=== PATIENT | male | born 1960 | race Caucasian/White ===

== ENCOUNTER 2016-09-29 09:02 | Observation (INO) | payer OTHER ==
--- NOTE | 2016-09-29 09:24 | ED ---
Shortness of Breath - HPI Summary HPI Summary: 55yo male presents with shortness of breath that started yesterday. Patient has productive cough of yellow/green sputum which started on Thursday. Patient has been on an antibiotic since Thursday for an infection at the site of his previous iv. He believes he's been on cephalexin. He states that those symptoms have improved. Patient states that he feels cold, but no fever. He does have some myalgias. He has been using his inhalers at home, but hasn't been getting any relief. He used his nebulizer about an hour ago without relief. He had is last prednisone last Thursday. No chest pain. No leg swelling. Patient has some dizziness only when he coughs. He was admitted for COPD exacerbation on September 14-2015. Patient with upper GI scheduled due to GI bleed noticed in his colostomy bag, Dr. Guerline STANTON. PCP is Dr. Heredia. - History of Current Complaint Chief Complaint: EDShortnessOfBreath - Allergy/Home Medications Allergies/Adverse Reactions: Allergies Allergy/AdvReac Type Severity Reaction Status Date / Time No Known Allergies Allergy Verified 09/29/16 10:00 Home Medications: Home Medications Epclusa 1 tab PO DAILY 09/29/16 [History Confirmed 09/29/16] PMH/Surg Hx/FS Hx/Imm Hx Endocrine/Hematology History: Denies: Hx Diabetes, Hx Systemic Lupus Erythematosus, Hx Thyroid Disease Cardiovascular History: Reports: Hx Atrial Fibrillation - no anticoagulants used currently Denies: Hx Congestive Heart Failure, Hx Hypertension Comment Only: Other Cardiovascular Problems/Disorders - A FIB Respiratory History: Reports: Hx Asthma, Hx Chronic Obstructive Pulmonary Disease (COPD), Hx Pneumonia GI History: Reports: Hx Gastrointestinal Bleed, Hx Obstructive Bowel, Hx Ulcer - ulcerative colitis, Other GI Disorders - colostomy History: Denies: Hx Renal Disease Musculoskeletal History: Denies: Hx Arthritis, Hx Rheumatoid Arthritis, Hx Osteoporosis Sensory History: Reports: Hx Contacts or Glasses Opthamlomology History: Reports: Hx Contacts or Glasses - Cancer History Hx Chemotherapy: No - Surgical History Surgery Procedure, Year, and Place: COLECTOMY FOR ULCERATIVE COLITIS AT [facility] - has ostomy now 12/2012; bilat knees for cartilage Hx Anesthesia Reactions: No Infectious Disease History: Yes Infectious Disease History: Reports: Hx Hepatitis - hep c Denies: Hx Clostridium Difficile, Hx Human Immunodeficiency Virus (HIV), Hx of Known/Suspected MRSA, Hx Shingles, Hx Tuberculosis, Hx Known/Suspected VRE, Hx Known/Suspected VRSA, History Other Infectious Disease, Traveled Outside the [place] in Last 30 Days - Family History Known Family History: Positive: Unknown - adopted - Social History Lives: Alone Alcohol Use: Occasionally Alcohol Amount: 2 vodka drinks Substance Use Type: Reports: None Smoking Status (MU): Former Smoker - 2 months ago, smoked for 40 years Type: Cigarettes Amount Used/How Often: 1/2 ppd Have You Smoked in the Last Year: Yes Review of Systems Positive: Chills Positive: Shortness Of Breath, Cough All Other Systems Reviewed And Are Negative: Yes Physical Exam - Summary Physical Exam Summary: GENERAL: Well appearing, No acute distress, well nourished. HEENT: Head atraumatic/normocephalic, EOMI/ANTONIO, conjunctiva clear, TMs appear without erythema/bulging, Nose appears without congestion or drainage, Throat uvula midline without exudates, erythema, or tonsillar edema. NECK: Supple with normal range of motion during conversation. CARDIAC: Tachycardia with decreased heart sounds due to barrel chest without murmur, rub or gallop LUNGS: Diffuse expiratory wheezing bilaterally, No rales or rhonchi. Increased respiratory effort with supraclavicular retractions. Breath sounds are symmetrical and equal. ABDOMEN: Abdomen is soft and non-tender. colostomy bag present MUSCULOSKELETAL: Moves all extremities well. There is no peripheral edema. RUE without signs of infection. SKIN: Warm and dry, skin color reflects adequate perfusion. NEUROLOGICAL: Patient is alert and appropriate. Cranial nerves are grossly intact. PSYCHIATRIC: Appropriate affect. Vital Signs On Initial Exam: Initial Vitals Temp Pulse Resp BP Pulse Ox 97.8 F 107 19 129/87 97 09/29/16 09:05 09/29/16 09:05 09/29/16 09:05 09/29/16 09:05 09/29/16 09:05 Diagnostics - Vital Signs Vital Signs Temp Pulse Resp BP Pulse Ox 09/29/16 09:05 97.8 F 107 19 129/87 97 - Laboratory Result Diagrams: 09/29/16 09:24 09/29/16 09:24 Lab Statement: Any lab studies that have been ordered have been reviewed, and results considered in the medical decision making process. - Radiology chest Radiology Interpretation Completed By: Radiologist - EKG 1 Cardiac Rate: Tachycardia EKG Rhythm: Sinus Rhythm ST Segment: Normal Ectopy: None EKG Interpretation: sinus tachycardia, seen by Dr. Gordon 2 Cardiac Rate: Tachycardia EKG Rhythm: Sinus Rhythm ST Segment: Normal Ectopy: None EKG Comparison: No Significant Change - from earlier ekg Re-Evaluation - Re-Evaluation First Eval Change: Unchanged - Patient with continued sob, supraclavicular retractions, and tachycardia. Patient 96% on [address]ers [address]iscuss[address]. Gordon who advised hospitalist consult. Second Eval Change: Unchanged - Patient states that his breathing is improved, but he feels a little 'light headed'. Patient is tachycardic at 115. Patient denies chest pain. Will repeat EKG. Course/Dx - Course Assessment/Plan: 55yo male presents with SOB, productive cough and recent history of admission for COPD exacerbation. He states that he finished his pred taper last Thursday, and was started on abx for right iv site secondary infection. Patient increased SOB that started yesterday and is not improved with inhalers. Patient with elevated wbc, lactic. Patient had 2 nebs here with slight relieve but continues to have increased work of breathing, tachycardia, and diffuse wheezing. Discussed with Dr. Gordon who recommended speaking with hospitalist for possible admission. Discussed with Dr. Mckeon who will have someone from her team see the patient for admission. Patient is comfortable with plan of care. - Diagnoses Provider Diagnoses: COPD exacerbation, Leukocytosis, Tachycardia - Physician Notifications Discussed Care of Patient With: Dr. Gordon. Dr. Mckeon Discharge - Discharge Plan Condition: Improved Disposition: ADMITTED TO [facility] Referrals: Matthew Pandya MD [Medical Doctor] -
[2016-09-29] MEDS ORDERED: Albuterol/Ipratropium NEB.SOL* Albuterol 2.5 MG/Ipratropium 0.5 MG 3 ML INH ONE ×2 (09:27→10:25)
[2016-09-29] MEDS ORDERED: methylPREDNISolone 125 MG* 2 ML VIAL IV ONE (09:31)
[2016-09-29] MEDS ORDERED: Levofloxacin 750 MG IVPREMIX(* 750 MG/150 ML BAG IVPB ONE (09:36)
[2016-09-29 09:37] LABS: Hematocrit 51 % (42-52); Hemoglobin 16.9 g/dl (14.0-18.0); Mean Corpuscular HGB Conc 33 g/dl (31-36); Mean Corpuscular Hemoglobin 31 pg (27-31); Mean Corpuscular Volume 94 fL (80-94); Mean Platelet Volume 8 um3 (7.4-10.4); Red Blood Count 5.41 10^6/ul (4.0-5.4); Red Cell Distribution Width 15 % (10.5-15); White Blood Count 16.8 10^3/ul (3.5-10.8)
[2016-09-29 09:41] LABS: Comments Flag Yes
[2016-09-29 09:42] LABS: Add Diff/Slide Review? Slide Review Added
[2016-09-29 09:58] LABS: Albumin 4.3 g/dL (3.2-5.2); Calcium 9.2 mg/dL (8.6-10.3); EGFR African American 118.7 (>60); EGFR Non-African American 92.3 (>60); Potassium 4.2 mmol/L (3.5-5.0); Total Bilirubin 1.1 mg/dL (0.2-1.0); Total Protein 7.3 g/dL (6.4-8.9)
[2016-09-29 10:00] LABS: Troponin I 0.01 ng/mL (<0.04)
--- NOTE | 2016-09-29 10:31 | RAD ---
INDICATION: Shortness of breath. COMPARISON: Comparison is made with prior studies from July 01, 2016 and September 14, 2016. TECHNIQUE: Dual-energy PA and lateral views of the chest were obtained. FINDINGS: The heart is within normal limits in size. Mediastinal and hilar contours appear within normal limits. The lungs are markedly hyperinflated and clear. No pleural effusion is seen. IMPRESSION: FINDINGS CONSISTENT WITH COPD, NO EVIDENCE FOR ACUTE FINDING.
[2016-09-29] MEDS ORDERED: NS 0.9% 1000 ML* 1,000 ML IV ONE (13:47)
--- NOTE | 2016-09-29 18:30 | HP ---
TWO ADDENDUMS INCLUDED ON THIS REPORT HOSPITAL MEDICINE HISTORY AND PHYSICAL: DATE OF ADMISSION: 09/29/16 PRIMARY CARE PHYSICIAN: Dr. Heredia. ATTENDING PHYSICIAN: Dr. Preethi Mckeon *(dictation provided by Jodie German NP) . CHIEF COMPLAINT: Shortness of breath and cough. HISTORY OF PRESENT ILLNESS: Mr. Yne is a 55-year-old male with a past medical history of COPD with admission to our hospital from 09/14/16 through for COPD exacerbation, who returns today to the hospital with concern for worsening shortness of breath and cough. Mr. Yen states that he was feeling better at the time of discharge on 09/17/16. He continued to feel better and completed his antibiotics on 09/23/16, and completed his steroid treatments on 09/24/16. He stated that he suddenly began feeling more short of breath yesterday on 09/28/16. He also reports a worsening cough with green sputum. In addition to this, he had followed up with his primary care physician late last week regarding redness to his arm. At that time, he was diagnosed with phlebitis likely secondary to phlebotomy or intravenous therapy while in the hospital and was started on clindamycin. He states that the redness has resolved, although he only completed a couple of days of antibiotics. In the emergency room, Mr. eYn had an elevated white blood cell count to 16.8. His white blood cell count had been 13.1 at the time of discharge in the last hospitalization. His lactic acid is mildly elevated at 2.3. Otherwise, his labs are unremarkable. His flu swab was negative. His chest x-ray shows no evidence of pneumonia. He is currently wheezing and with an O2 saturation greater than 90% on 2 L cannula. Based on Mr. Yen's presentation with COPD exacerbation, Hospital Medicine was called regarding admission. PAST MEDICAL HISTORY: 1. COPD with 2 hospitalizations in 2016 for exacerbation. 2. Phlebitis, appears to be resolved. 3. Ulcerative colitis, status post colectomy with colostomy, December 2012. 4. One episode of AFib, October 2015. 5. Hep C, currently on treatment. MEDICATIONS: As an outpatient are: 1. Metoprolol tartrate 50 mg p.o. b.i.d. 2. Epclusa 1 tab p.o. daily. 3. Ipratropium 1 puff inhaled q.6 hours p.r.n. 4. Albuterol 1 to 2 puffs inhaled q.4 hours p.r.n. ADDENDUM TO MEDICATION LIST: 1. Clindamycin 300 mg p.o. q.6 hours. ALLERGIES: No known drug allergies. FAMILY HISTORY: Reviewed and noncontributory. SOCIAL HISTORY: The patient states he quit smoking 8 months ago. He drinks 2 to 3 alcoholic beverages per week. He states that his father is the healthcare proxy. REVIEW OF SYSTEMS: A 14-point review of systems was completed with Mr. Yen and all those not mentioned above were negative. PHYSICAL EXAMINATION GENERAL: Mr. Yen is sitting up in the bed. He appears somewhat short of breath but is in no acute distress and able to communicate in complete sentences. VITAL SIGNS: Blood pressure 118/79, heart rate 107, temperature 98.3, respiratory rate 25, O2 saturation 97% on 2 L nasal cannula. LUNGS: Diminished but with expiratory wheezing bilaterally with no accessory muscle use. He has a harsh cough. HEART: S1 and S2. No murmur, rub, or gallop, and regular. ABDOMEN: Soft, nontender. Bowel sounds positive x4. Colostomy in place. EXTREMITIES: No cyanosis or edema. NEURO: He is alert and oriented x3. He moves all extremities equally. There is no facial asymmetry or focal weakness. Extraocular movements are intact. SKIN: Intact. DIAGNOSTIC STUDIES/LAB DATA: WBC 16.8, hemoglobin 16.9, hematocrit 51, platelet count 202. INR 0.88. Sodium 132, potassium 4.2, chloride 96, serum bicarbonate 29, BUN 6, creatinine 0.86, glucose 111, lactic acid 2.3. Troponin 0.01. Flu swab is negative. Chest x-ray shows no acute process. EKG shows sinus tachycardia with a heart rate of approximately 100. ASSESSMENT AND PLAN: Mr. Yen is a 55-year-old male with past medical history of chronic obstructive pulmonary disease with recent hospitalization, who returns today to the ED with shortness of breath and worsening cough with suspected chronic obstructive pulmonary disease exacerbation. My plan is for inpatient admission as I expect his length of stay would be greater than 2 days for the followin. Chronic obstructive pulmonary disease exacerbation. There is no evidence of pneumonia on the chest x-ray. I plan to treat with Solu-Medrol 60 mg intravenously q.12 hours. He will have Levaquin 750 mg IV q. day. He will have Duo nebulizers q.4 hours as needed. He will have oxygen per respiratory therapy protocol. His lactic acid is slightly elevated, I will repeat that. I am not sure quite what is driving this repeat flare. The patient states he has been taking his medications regularly. He has stopped smoking. 2. Hypertension. Continue metoprolol. 3. Hep C. Continue Epclusa. 4. DVT prophylaxis with SCDs. 5. Disposition to medical floor. 6. Code status is full code. TIME SPENT: Approximately 60 minutes was spent on the admission of this patient , more than half of the time was spent with him at the bedside reviewing the events leading up to this hospitalization, performing the physical examination, and reviewing my plan of care. JODIE GERMAN NP ADDENDUM: Mr. Yen is a 55-year-old male with history of COPD, who presents yet with another COPD exacerbation. The patient is going to be admitted to the hospital with a diagnosis of COPD exacerbation. For details, please see history and physical dictated by Jodie German NP, on 09/29/16, with which I agree. PREETHI MCKEON MD CC: Dr. Heredia * [id number]/CPS #: [id number]/CPS #: [id number]/CPS #: [id number] ELIUD
[2016-09-29] MEDS: Albuterol/Ipratropium NEB.SOL* Albuterol 2.5 MG/Ipratropium 0.5 MG 3 ML INH PRN (20:39)
--- NOTE | 2016-09-29 20:42 | HP ---
HISTORY AND PHYSICAL: ADDENDUM: MEDICATION LIST: Clindamycin 300 mg p.o. q[place] [id number]/[facility] #: [id number] MTDD
[2016-09-29] MEDS: methylPREDNISolone 125 MG* 2 ML VIAL IV SCH (21:14)
[2016-09-29] MEDS: Metoprolol Tartrate TAB* 50 mg PO SCH (21:14)
--- NOTE | 2016-09-29 22:20 | HP ---
HISTORY AND PHYSICAL: ADDENDUM: Mr. Yen is a 55-year-old male with history of COPD, who presents yet with another COPD exacerbation. The patient is going to be admitted to the hospital with a diagnosis of COPD exacerbation. For details, please see history and physical dictated by Jodie German NP, on 09/29/16, with which I agree. [id number]/[facility] #: [id number] MTDKali
[2016-09-30 06:56] LABS: Hematocrit 46 % (42-52); Hemoglobin 15.5 g/dl (14.0-18.0); Mean Corpuscular HGB Conc 33 g/dl (31-36); Mean Corpuscular Hemoglobin 32 pg (27-31); Mean Corpuscular Volume 95 fL (80-94); Mean Platelet Volume 8 um3 (7.4-10.4); Red Blood Count 4.89 10^6/ul (4.0-5.4); Red Cell Distribution Width 15 % (10.5-15); White Blood Count 25.7 10^3/ul (3.5-10.8)
[2016-09-30 07:10] LABS: BUN/Creatinine Ratio 17.8 (8-20); Calcium 9.3 mg/dL (8.6-10.3); EGFR African American 143.5 (>60); EGFR Non-African American 111.6 (>60); Potassium 4.6 mmol/L (3.5-5.0)
[2016-09-30 07:12] LABS: Comments Flag Yes
[2016-09-30 07:13] LABS: Add Diff/Slide Review? Slide Review Added
[2016-09-30] MEDS: methylPREDNISolone 125 MG* 2 ML VIAL IV SCH (07:58)
[2016-09-30] MEDS: Metoprolol Tartrate TAB* 50 mg PO SCH (07:58)
[2016-09-30] MEDS ORDERED: EPCLUSA PO SCH (09:00)
[2016-09-30] MEDS ORDERED: Levofloxacin 750 MG IVPREMIX(* 750 MG/150 ML BAG IVPB SCH (09:00)
[2016-09-30 09:12] LABS: Immature Granulocytes 6 % (0-9); Neutrophil % 91 % (38-83); RBC Morphology Normal (Normal)
[2016-09-30] MEDS: Albuterol/Ipratropium NEB.SOL* Albuterol 2.5 MG/Ipratropium 0.5 MG 3 ML INH PRN (09:28)
--- NOTE | 2016-09-30 11:29 | PN ---
Subjective Date of Service: 09/30/16 Interval History: Mr. Yen states that he is feeling better overall although he continues to feel "tight." He was able to ambulate around the unit three times without oxygen requirement. He was more short of breath than usual but able to accomplish this activity. He denies chest pain or other complaint. Objective Active Medications: Albuterol/Ipratropium (Duoneb Neb.Leona*) 1 neb INH Q4H PRN Levofloxacin/Dextrose (Levaquin 750 Mg Ivpremix(*)) 750 mg in 150 mls @ 100 mls /hr IVPB Q24H JUSTIN Methylprednisolone Sodium Succinate (Solu-Medrol*) 60 mg IV Q12H JUSTIN Metoprolol Tartrate (Lopressor Tab*) 50 mg PO BID JUSTIN Pto:Epclusa 1 Tab ( Sofosbuvir And Velpatasvir 400mg/100mg) 1 tab PO DAILY [facility] Vital Signs 09/29/16 09/29/16 09/29/16 11:30 12:00 12:17 Temperature Pulse Rate 112 104 105 Respiratory 23 20 20 Rate Blood Pressure 122/68 120/80 120/80 (mmHg) O2 Sat by Pulse 97 97 Oximetry 09/29/16 09/29/16 09/29/16 13:11 13:20 15:31 Temperature 97.6 F 97.6 F Pulse Rate 104 109 Respiratory 18 22 22 Rate Blood Pressure 133/97 125/85 (mmHg) O2 Sat by Pulse 96 95 Oximetry 09/29/16 09/29/16 09/29/16 19:24 20:00 20:39 Temperature 97.3 F Pulse Rate 111 105 Respiratory 20 20 Rate Blood Pressure 132/65 (mmHg) O2 Sat by Pulse 96 95 Oximetry 09/29/16 09/29/16 09/30/16 20:45 23:37 04:34 Temperature 97.3 F Pulse Rate 74 77 Respiratory 16 16 Rate Blood Pressure 117/80 122/92 (mmHg) O2 Sat by Pulse 95 98 100 Oximetry 09/30/16 09/30/16 09/30/16 07:24 08:08 09:29 Temperature 97.5 F Pulse Rate 83 85 Respiratory 20 22 16 Rate Blood Pressure 104/73 (mmHg) O2 Sat by Pulse 100 96 Oximetry Oxygen Devices in Use Now: None Appearance: Male sitting up in bed in NAD Respiratory: Symmetrical Chest Expansion and Respiratory Effort, - - Minimal wheezing bilaterally Cardiovascular: NL Sounds; No Murmurs; No JVD, No Edema Abdominal: NL Sounds; No Tenderness; No Distention Extremities: No Edema Skin: No Rash or Ulcers Neurological: Alert and Oriented x 3, NL Muscle Strength and Tone Result Diagrams: 09/30/16 06:29 09/30/16 06:29 Assess/Plan/Problems-Billing Assessment: Mr. Yen is a 55 yo male with COPD who was admitted on 09/29/16 with COPD Exacerbation. - Patient Problems (1) COPD exacerbation Comment: Improved, no O2 requirement. Plan to discharge to home on prednisone taper, levaquin, and albuterol prn. (2) Full code status (3) Hypertension Comment: Continue metoprolol. (4) Hepatitis C Comment: Continue epclusa. (5) DVT prophylaxis Comment: sq heparin Status and Disposition: Convert to OBV given rapid improvement. Discharge to home.
[2016-09-30 11:39] VITALS: BP 121/73
--- NOTE | 2016-10-01 01:38 | DS ---
DISCHARGE SUMMARY: DATE OF ADMISSION: 09/29/16 DATE OF DISCHARGE: 09/30/16 PRIMARY CARE PHYSICIAN: Allyn Heredia MD ATTENDING PHYSICIAN: OMAR Rodas (dictation provided by Jodie German NP) PRIMARY DIAGNOSIS: Chronic obstructive pulmonary disease exacerbation. SECONDARY DIAGNOSES: 1. History of ulcerative colitis, status post colectomy with colostomy in December 2012. 2. One episode of atrial fibrillation, October 2015. 3. Hepatitis C, currently on treatment. MEDICATIONS AT THE TIME OF DISCHARGE: 1. Prednisone 40 mg via taper daily. 2. Levaquin 750 mg p.o. daily. 3. Spiriva 18 mcg inhaled daily. 4. Dulera 100/5 mcg metered dose inhaler 1 puff inhaled b.i.d. 5. Metoprolol tartrate 50 mg p.o. b.i.d. 6. Atrovent inhaler 1 puff inhaled q.6 hours p.r.n. 7. Albuterol inhaler 1 puff inhaled q.4 hours p.r.n. 8. Epclusa 1 tab p.o. daily. HOSPITAL COURSE: Mr. Yen is a 55-year-old male who presented to the hospital on 10/09/16 with concern for shortness of breath and green sputum. Please see the dictated H and P from myself for complete details. In brief, the patient had been hospitalized from 09/14/16 through 09/17/16 with COPD exacerbation. The patient states he did feel much better and completed a course of antibiotics and prednisone taper. 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 Regardless of the cause, he did come back to the emergency room on 09/29/16 with concern for wheezing, cough, and green sputum. Chest x-ray showed no pneumonia. His white blood cell count was slightly elevated to 16.8. His lactic acid was slightly elevated at 2.3. He was on 2 L nasal cannula. Mr. Yen was treated with Levaquin and Solu-Medrol and duo nebulizer treatments. With this, he has been feeling well. He has been able to ambulate around the unit 3 times without any significant shortness of breath. He is not back to his baseline, but he has no O2 requirements and is able to engage in that level of activity easily. Mr. Yen is doing much better today and is medically stable for discharge to home to complete a course of treatment for COPD exacerbation. DISPOSITION: Home. DIET: Low salt. ACTIVITY: As tolerated. FOLLOWUP PLAN: Please follow up with Dr. Heredia regarding the second hospitalization for COPD exacerbation in the last month. We will note the patient is going to be started on Spiriva and Dulera in hopes of preventing future recurrences. TIME SPENT: Approximately 60 minutes was spent in the discharge of this patient , more than half of the time was spent with him at the bedside reviewing the events leading up to this hospitalization and during this hospitalization, performing the physical examination, and reviewing my plan of care. JODIE GERMAN NP CC: Dr. Heredia * [id number]/CPS #: [id number] ELIUD
== END 2016-09-30 14:15 | disposition home or self-care (01) ==
LOC: ED 09:02 → INTOOBSV 11:25 → MED 11:25
PROVIDERS: ADMIT Internal Medicine; ATTEND Hospitalist
DX: J44.1 Chronic obstructive pulmonary disease with (acute) exacerbation (principal); I10 Essential (primary) hypertension; B19.20 Unspecified viral hepatitis C without hepatic coma; Z87.891 Personal history of nicotine dependence; D72.829 Elevated white blood cell count, unspecified; R00.0 Tachycardia, unspecified; Z79.899 Other long term (current) drug therapy
CPT/HCPCS: 36415; 71020; 80048; 80053; 83605; 84484; 85025; 85610; 87040; 87502; 93005; 94640; 94760; 96365; 96375; 96376; 99284; A9270-GY; J2930

== ENCOUNTER 2016-10-01 18:53 | Emergency (ER) | payer OTHER ==
[2016-10-01 19:22] VITALS: BP 126/87
--- NOTE | 2016-10-01 19:32 | UC ---
Truncal Trauma HPI - HPI Summary HPI Summary: 55 yo male was discharge from [facility] yesterday for an exacerbation of COPD He slipped when he got home and injured his left ribs states his breathing now is better than when he was hospitalized - History Of Current Complaint Chief Complaint: UCTrauma Stated Complaint: RIB INJURY FROM FALL Time Seen by Provider: 10/01/16 19:27 Hx Obtained From: Patient Onset/Duration: Sudden Onset Onset Of Pain: Immediate Severity Initially: Moderate Severity Currently: Moderate Pain Intensity: 7 Pain Scale Used: 0-10 Numeric Mechanism Of Injury: Fall From A Standing Position Aggravating Factor(s): Deep Breathing, Cough Associated Signs And Symptoms: Positive: SOB - at his baseline, Chest Pain, Cough Related History: COPD - Allergies/Home Medications Allergies/Adverse Reactions: Allergies Allergy/AdvReac Type Severity Reaction Status Date / Time No Known Allergies Allergy Verified 10/01/16 19:23 Home Medications: Home Medications predniSONE TAB* [Deltasone TAB*] 40 mg PO DAILY 10/01/16 [History Confirmed 08/07] PMH/Surg Hx/FS Hx/Imm Hx Previously Healthy: Yes Endocrine History Of: Denies: Diabetes, Thyroid Disease Cardiovascular History Of: Reports: Cardiac Disorders - Afib Denies: Hypertension, Congestive Heart Failure Respiratory History Of: Reports: COPD, Asthma, Pneumonia GI/ History Of: Reports: Ulcer - ulcerative colitis, Gastrointestinal Bleed Denies: Renal Disease - Surgical History Surgical History: Yes Surgery Procedure, Year, and Place: COLECTOMY FOR ULCERATIVE COLITIS AT [facility] - has ostomy now 12/2012; bilat knees for cartilage - Family History Known Family History: Positive: Unknown - adopted, Hypertension, Respiratory Disease - Social History Alcohol Use: Occasionally Alcohol Amount: 3-4/WEEK Substance Use Type: None Smoking Status (MU): Former Smoker Type: Cigarettes Amount Used/How Often: 1/2 ppd Have You Smoked in the Last Year: Yes When Did the Patient Quit Smoking/Using Tobacco: quit in aug 2015 Household Exposure Type: Cigarettes - Immunization History Most Recent Influenza Vaccination: 2015 Most Recent Tetanus Shot: 04/29/16 Most Recent Pneumonia Vaccination: 04/29/16 Review of Systems Constitutional: Negative Skin: Negative Eyes: Negative ENT: Negative Respiratory: Shortness Of Breath, Cough Cardiovascular: Chest Pain Gastrointestinal: Negative Genitourinary: Negative Motor: Negative Neurovascular: Negative Musculoskeletal: Negative Neurological: Negative Psychological: Negative All Other Systems Reviewed And Are Negative: Yes Physical Exam Triage Information Reviewed: Yes Appearance: Ill-Appearing, Pain Distress Vital Signs: Initial Vital Signs Temp 98 F 10/01/16 19:17 Pulse 96 10/01/16 19:17 Resp 20 10/01/16 19:17 BP 126/87 10/01/16 19:17 Pulse Ox 94 10/01/16 19:17 Vital Signs Reviewed: Yes Eyes: Positive: Conjunctiva Clear ENT: Negative: Pharynx normal, Nasal congestion, Nasal drainage Neck: Positive: Supple Respiratory: Positive: Accessory muscle use, Wheezing. Negative: Chest non- tender Cardiovascular: Positive: RRR Abdomen Description: Positive: Nontender, Soft Musculoskeletal: Positive: ROM Intact, No Edema Neurological: Positive: Alert Psychological Exam: Normal Skin Exam: Normal Truncal Trauma Course/Dx - Differential Dx/Diagnosis Provider Diagnoses: rib fracture clinically Discharge - Discharge Plan Condition: Stable Disposition: HOME Prescriptions: Tramadol HCl [Ultram] 50 mg PO Q4H PRN #20 tab MDD 6 PRN Reason: Pain Patient Education Materials: Rib Fracture (ED) Referrals: No Primary Care Phys,NOPCP [Primary Care Provider] - Additional Instructions: to er for new or worsening symptoms recheck in one week if not better no rib fracture was seen but you may have a non displaced fracture that is not visualized Images Front/Back of Body, Lg (Terrell): 1 - tender/pain with rib springing
--- NOTE | 2016-10-01 20:08 | RAD ---
Indication: Left rib injury. 3 views of the left ribs are reviewed. No definite fracture is identified. No significant displacement is noted although the anterior tip of the ribs is not well demonstrated. IMPRESSION: No definite fracture of the left ribs is noted.
[2016-10-01] MEDS ORDERED: traMADol TAB* 50 MG PO ONE (21:06)
== END 2016-10-01 21:19 | disposition home or self-care (01) ==
LOC: UCEAST 18:53
DX: R07.81 Pleurodynia (principal); R06.02 Shortness of breath; I48.91 Unspecified atrial fibrillation; J44.9 Chronic obstructive pulmonary disease, unspecified; Z87.891 Personal history of nicotine dependence
CPT/HCPCS: 99212; A9270-GY; G0463

== ENCOUNTER 2016-11-17 13:12 | Emergency (ER) | payer OTHER ==
[2016-11-17 13:44] VITALS: BP 98/66
--- NOTE | 2016-11-17 14:04 | UC ---
Cardiac HPI - HPI Summary HPI Summary: The patient comes in today for: 1. Dyspnea and chest pain. Onset: 2 days. Palliative/provocative: Exertion makes the chest pain worse. Quality: Pressure Region/radiation: Left chest. Severity: 5/10 Time: Comes and goes. Associated symptoms: Dyspnea: Present Nausea: Not present at this time. Diaphoresis: None. Previous disease: He states that he saw his power marketer on October 20. He denies having any stress test. He states that the power marketer things that his chest pain (before the last two days which is a sharp pain) is related to his GI tract. The patient states that he has a colostomy (ulcerative colitis) and in the bag contents, there was blood. CAD risk factors: HTN: (+), Age: (+), DM: (-), Fm Hx: (?)--he was adopted. Cholesterol: (?). Smoker: (+)--quit 9 months ago. Lung disease: COPD and asthma as a child. He states that the chest pain has been getting worse. And it feels "Like 100 pounds are sitting on my chest." * - History of Current Complaint Chief Complaint: UCRespiratory Stated Complaint: COUGH SOB COPD Time Seen by Provider: 11/17/16 13:56 Hx Obtained From: Patient - Allergy/Home Medications Allergies/Adverse Reactions: Allergies Allergy/AdvReac Type Severity Reaction Status Date / Time No Known Allergies Allergy Verified 11/17/16 13:34 Home Medications: Home Medications Bp Med 1 tab DAILY 11/17/16 [History] PMH/Surg Hx/FS Hx/Imm Hx Previously Healthy: No - Ulcerative colitis s/p colostomy. Endocrine History Of: Denies: Diabetes, Thyroid Disease, Hyperthyroidism, Hypothyroidism, Dyslipidemia Cardiovascular History Of: Reports: Cardiac Disorders - Afib, Hypertension, Atrial Fibrillation Denies: Pacemaker/ICD, Myocardial Infarction, Congestive Heart Failure, Deep Vein Thrombosis, Bleeding Disorders Respiratory History Of: Reports: COPD, Asthma Denies: Bronchitis, Pneumonia, Pulmonary Embolism GI/ History Of: Reports: Gastrointestinal Bleed Denies: Gastroesophageal Reflux, Ulcer, Gall Bladder Disease, Kidney Stones, Diverticulitis, Renal Disease, Urosepsis Neurological History Of: Denies: TIA, CVA, Dementia, Seizures, Migraine Psychological History Of: Denies: Anxiety, Depression, Bipolar Disorder, Schizophrenia, Post Traumatic Stress Disorder Cancer History Of: Denies: Lung Cancer, Colorectal Cancer, Breast Cancer, Prostate Cancer, Cervical Cancer Other History Of: Hepatitis C - He just finished treatment for it. Negative For: HIV, Hepatitis B, Anticoagulant Therapy - Surgical History Surgical History: Yes Surgery Procedure, Year, and Place: COLECTOMY FOR ULCERATIVE COLITIS AT [facility] - has ostomy now 12/2012; bilat knees for cartilage. Tonsils - Family History Known Family History: Positive: Unknown - adopted - Social History Occupation: Unemployed Alcohol Use: Occasionally Alcohol Amount: 3-4/WEEK Substance Use Type: None Smoking Status (MU): Former Smoker Type: Cigarettes Amount Used/How Often: 1/2 ppd Have You Smoked in the Last Year: Yes When Did the Patient Quit Smoking/Using Tobacco: quit in aug 2015 Household Exposure Type: Cigarettes - Immunization History Most Recent Influenza Vaccination: 2015 Most Recent Tetanus Shot: 04/29/16 Most Recent Pneumonia Vaccination: 04/29/16 Review of Systems Constitutional: Negative Skin: Negative Eyes: Negative ENT: Negative Respiratory: Shortness Of Breath, Cough - He is coughing up yellow material. He denies any rhinitis Cardiovascular: Chest Pain Gastrointestinal: Negative Genitourinary: Negative Motor: Negative All Other Systems Reviewed And Are Negative: Yes Physical Exam Triage Information Reviewed: Yes Appearance: No Pain Distress, Cachectic Vital Signs: Initial Vital Signs Temp 97.7 F 11/17/16 13:37 Pulse 103 11/17/16 13:37 Resp 18 11/17/16 13:37 BP 98/66 11/17/16 13:37 Pulse Ox 94 11/17/16 13:37 Vital Signs Reviewed: Yes Eyes: Positive: Conjunctiva Clear. Negative: Discharge ENT: Positive: Hearing grossly normal. Negative: Pharyngeal erythema, Nasal congestion, Nasal drainage, TM bulging, TM dull, TM red, Tonsillar swelling, Tonsillar exudate Dental: Positive: Gross Decay/Caries @. Negative: Dental Fracture @ Neck: Positive: Supple, Nontender, No Lymphadenopathy. Negative: Nuchal Rigidity Respiratory: Positive: Chest non-tender, No respiratory distress - He is not uncomfortable just sitting., Accessory muscle use, Other: - Very poor inspiration/expiration cycle. Positive intercostal retractions with inspirpation.. Negative: Rhonchi, Wheezing Cardiovascular: Positive: RRR, No Murmur Abdomen Description: Positive: Nontender, No Organomegaly, Soft. Negative: Distended, Guarding Musculoskeletal: Positive: Strength Intact, ROM Intact, No Edema Neurological: Positive: Alert, Muscle Tone Normal Psychological: Positive: Age Appropriate Behavior, Consolable Skin: Negative: rashes, breakdown Diagnostics - Laboratory Diagnostic Studies Completed/Ordered: EKG: Rate: 90. Rhythm: Sinus. Ectopy: One PVC. Acute changes: None seen. - Assessment/Plan Course Of Treatment: Patient was told that I am concerned that he may be having a cardiac event and need to rule this out. But, this has to be done through the ER. He declined an ambulance. - Clinical Impression Provider Diagnoses: Chest pain. Dypsnea. COPD - Physician Notifications Discussed Patient Care With: Jeannie Larios Time Discussed With Above Provider: 14:23 Discharge - Discharge Plan Condition: Stable Disposition: AGAINST MEDICAL ADVICE Additional Instructions: Please go directly to the [facility].
[2016-11-17] MEDS ORDERED: Aspirin Low Dose CHEW TAB* 81 MG PO ONE (14:20)
== END 2016-11-17 14:30 | disposition left against medical advice (07) ==
LOC: UCEAST 13:12
DX: R07.89 Other chest pain (principal); R06.00 Dyspnea, unspecified; J44.9 Chronic obstructive pulmonary disease, unspecified; I10 Essential (primary) hypertension; Z87.891 Personal history of nicotine dependence
CPT/HCPCS: 93005; 99212; A9270-GY; G0463

== ENCOUNTER 2016-11-17 14:51 | Observation (INO) | payer OTHER ==
[2016-11-17] MEDS ORDERED: methylPREDNISolone 125 MG* 2 ML VIAL IV ONE (15:05)
[2016-11-17] MEDS: Albuterol/Ipratropium NEB.SOL* Albuterol 2.5 MG/Ipratropium 0.5 MG 3 ML INH SCH ×4 (15:15→19:32)
[2016-11-17 15:25] LABS: Hematocrit 52 % (42-52); Hemoglobin 17.4 g/dl (14.0-18.0); Mean Corpuscular HGB Conc 34 g/dl (31-36); Mean Corpuscular Hemoglobin 32 pg (27-31); Mean Corpuscular Volume 95 fL (80-94); Mean Platelet Volume 8 um3 (7.4-10.4); Red Blood Count 5.45 10^6/ul (4.0-5.4); Red Cell Distribution Width 14 % (10.5-15); White Blood Count 14.7 10^3/ul (3.5-10.8)
[2016-11-17 15:28] LABS: Comments Flag Yes
[2016-11-17 15:29] LABS: Add Diff/Slide Review? Slide Review Added
--- NOTE | 2016-11-17 15:31 | RAD ---
Indication: Shortness of breath, chest pain, cough. Cardiovascular disease with arrhythmia. COPD. Comparison: October 01, 2016 and September 29, 2016 Technique: Upright AP 1511 hours Report: Elevated lung volumes. Mild prominence and significant rarefaction of the interstitial markings. Subtle patchy consolidation in the RIGHT lung most prominent at the mid lung zone with additional foci at the base. Additional subtle alveolar consolidation at the periphery of the LEFT lung base. Negative for volume loss to favor atelectasis. Negative for pleural effusion or pneumothorax. The heart, pulmonary vasculature, and mediastinal contours are unremarkable. IMPRESSION: New RIGHT greater than LEFT alveolar consolidation compared with the recent chest radiographs most consistent with pneumonia. Correlate with clinical assessment. Underlying stigmata of COPD and emphysema. Radiographic follow-up after therapy warranted to assess for resolution.
[2016-11-17 16:00] LABS: Albumin 4.6 g/dL (3.2-5.2); Calcium 9.5 mg/dL (8.6-10.3); EGFR African American 158.4 (>60); EGFR Non-African American 123.2 (>60); Globulin 2.9 g/dL (2-4); Total Bilirubin 0.7 mg/dL (0.2-1.0); Total Protein 7.5 g/dL (6.4-8.9)
[2016-11-17] MEDS ORDERED: Ciprofloxacin 400MG IVPREMIX(* 400 MG/200 ML BAG IVPB ONE (16:10)
[2016-11-17] MEDS ORDERED: Cefepime(*) 2 GM in NS 0.9% 50 ML* 50 ML IVPB ONE (16:10)
[2016-11-17] MEDS ORDERED: oxyCODONE/Acetamin 5/325 MG* TAB PO PRN (17:25)
[2016-11-17] MEDS ORDERED: Acetaminophen TAB* 325 MG PO PRN (17:25)
[2016-11-17] MEDS ORDERED: NS 0.9% 1000 ML* 1,000 ML IV SCH (17:30)
[2016-11-17] MEDS ORDERED: Azithromycin IV(*) 500 MG in NS 0.9% 250 ML* 250 ML IVPB SCH (18:00)
[2016-11-17] MEDS: Docusate CAP* 100 MG PO SCH (20:53)
[2016-11-17] MEDS ORDERED: Temazepam CAP* 15 MG PO PRN (21:00)
[2016-11-17] MEDS: Heparin VIAL(*) 5000 UNITS/ML VIAL (FIVE THOUSAND) SUBCUT SCH (21:59)
[2016-11-17] MEDS ORDERED: cefTRIAXone VIAL(*) 1,000 MG in NS 0.9% 50 ML* 50 ML IVPB ONE (23:00)
--- NOTE | 2016-11-17 23:29 | HP ---
HISTORY AND PHYSICAL: DATE OF ADMISSION: 11/17/16 PRIMARY CARE PROVIDER: Allyn Heredia MD CHIEF COMPLAINT: Shortness of breath and cough. HISTORY OF PRESENT ILLNESS: The patient is a 55-year-old male with history of COPD, not oxygen dependent, who presents complaining of shortness of breath and nonproductive cough for the past couple of days. When presented to the ED, he was febrile. He appears to have bilateral mid lung infiltrates right more than left. He is going to be admitted with a diagnosis of COPD exacerbation and pneumonia. PAST MEDICAL HISTORY: 1. COPD, not oxygen dependent. Last hospitalization in beginning September of 2016 for COPD exacerbation. 2. History of one episode of atrial fibrillation in 2015. 3. History of ulcerative colitis, status post colectomy and colostomy in 2012. 4. History of hepatitis C, status post treatment. The patient's echo documented at the beginning of 2015 showed EF of 40% to 45%. His income tax preparer is Dr. Kennedy. He reports no known heart attacks in the past. His atrial fibrillation documented in December 2015 did not recur. MEDICATIONS: At home include: 1. Albuterol nebulizer 4 times a day p.r.n. 2. Lisinopril 10 mg daily. 3. Dulera 100/5 one inhalation b.i.d. 4. Metoprolol tartrate 100 mg daily. 5. Albuterol inhaler 2 puffs every 4 hours p.r.n. ALLERGIES: Please note that when infusing the CIPROFLOXACIN today, the patient felt pain and pruritus at the infusion site, that was discontinued. Otherwise, no allergic reactions to other medications were noted. FAMILY HISTORY: Unknown. The patient is adopted. SOCIAL HISTORY: The patient quit smoking 8 to 9 months ago. He denies any current alcohol use, but he used to drink several drinks a week. He denies any drug use. He is currently unemployed. Lives by himself. His father is his surrogate. Father's name is Caleb Yen. Phone number is [phone]. REVIEW OF SYSTEMS: Please see history of present illness. The patient complaints of shortness of breath, wheezing, and nonproductive cough for the past couple of days. He denies any fevers. All the remaining 14 systems were reviewed with the patient and were otherwise negative. PHYSICAL EXAMINATION GENERAL: The patient is a very pleasant 55-year-old male, who is in no acute distress. Awake, alert and oriented x3. VITAL SIGNS: Blood pressure of 132/101, heart rate of 100 and regular, respiratory rate 16, oxygen saturation 98% on simple mask at 5 L. When the mask was taken off for several minutes, the patient's oxygen saturation dropped to 93% on room air. HEENT: Head: Atraumatic, normocephalic. Eyes: Pupils equal and reactive to light and accommodation. Oropharynx clear. Mucosa moist. NECK: Supple. No JVD, no bruits bilaterally. RESPIRATORY: Distant breath sounds bilaterally with diffuse upper lung wheezes bilaterally. CARDIOVASCULAR: Regular rate and rhythm. No murmur. ABDOMEN: Soft, nontender. Bowel sounds present in all 4 quadrants. EXTREMITIES: There is no edema. +2 pulses bilaterally. No clubbing or cyanosis. NEUROLOGIC: On neuro evaluation, speech clear. Cranial nerves II through XII grossly intact. Motor strength is 5/5 bilaterally. DIAGNOSTIC STUDIES/LABORATORY DATA: Show white blood cell count of 14.7, hemoglobin of 17.4, hematocrit of 52, and platelets of 261. Sodium of 132, potassium 4.0, chloride 102, carbon dioxide 21, BUN 6, creatinine 0.67. Liver function tests were unremarkable. Troponin of 0. Portable chest x-ray, impression: "New right greater than left alveolar consolidation compared with recent chest radiograph most consistent with pneumonia. Correlate with clinical assessment. Underlying stigmata of COPD and emphysema. Radiographic followup after therapy warranted to assess resolution." The patient's EKG shows sinus tachycardia with 1 PVC, heart rate of 90 beats per minute, no ST changes. ASSESSMENT AND PLAN: 1. For his community-acquired pneumonia, the patient is going to be treated with ceftriaxone and azithromycin. Sputum urine Legionella antigen and strep pneumo antigen is going to be obtained. 2. In regards to chronic obstructive pulmonary disease exacerbation, the patient is going to be placed on Solu-Medrol treatment with nebulizers around the clock. His Dulera is going to be held when the patient is receiving nebulizers as scheduled. 3. In regards to the patient's history of cardiomyopathy. The patient's EF was documented to 40% to 45% at the beginning of 2015. The patient is under the care of Dr. Kennedy. He is going to be continued on lisinopril and metoprolol as previously taken. 4. For DVT prophylaxis, the patient is going to be placed on heparin subcutaneously. 5. Code status is full. The patient's surrogate is his father. TIME SPENT: Approximately 62 minutes were spent on admission of this patient; more than half the time was spent [id number] with the patient doing the interview, physical exam. CC: Allyn Heredia MD; Brnet; Dr. Cunha, Gastroenterology * [id number]/[facility] #: [id number] MTDKali
[2016-11-18] MEDS: Albuterol/Ipratropium NEB.SOL* Albuterol 2.5 MG/Ipratropium 0.5 MG 3 ML INH SCH ×2 (01:29→08:11)
[2016-11-18] MEDS ORDERED: methylPREDNISolone 125 MG* 2 ML VIAL IV SCH (04:00)
[2016-11-18] MEDS: Heparin VIAL(*) 5000 UNITS/ML VIAL (FIVE THOUSAND) SUBCUT SCH (05:15)
[2016-11-18 06:48] LABS: Hematocrit 41 % (42-52); Hemoglobin 13.8 g/dl (14.0-18.0); Mean Corpuscular HGB Conc 34 g/dl (31-36); Mean Corpuscular Hemoglobin 32 pg (27-31); Mean Corpuscular Volume 95 fL (80-94); Mean Platelet Volume 9 um3 (7.4-10.4); Red Blood Count 4.29 10^6/ul (4.0-5.4); Red Cell Distribution Width 14 % (10.5-15); White Blood Count 16.3 10^3/ul (3.5-10.8)
[2016-11-18 07:00] LABS: BUN/Creatinine Ratio 19.8 (8-20); Calcium 8.5 mg/dL (8.6-10.3); EGFR African American 127.2 (>60); EGFR Non-African American 98.9 (>60); Potassium 4.3 mmol/L (3.5-5.0)
--- NOTE | 2016-11-18 07:55 | ED ---
Pankaj Rosenberg Adam, scribed for Addison Ring MD on 11/17/16 at 1625 . Respiratory - HPI Summary HPI Summary: 55 year old male arrived to [facility] c/o difficulty breathing beginning two days ago. He also describes chest pain and a productive cough (with yellow/green sputum) beginning yesterday. He noted that his symptoms have since exacerbated in the past two hours spontaneously, and was sent to [facility] after visiting Critical Care (where he was administered four baby Asprin). He has an at home nebulizer, but reports that it did not alleviate his symptoms. He is a former smoker, and has not smoked for 9 months. - History of Current Complaint Chief Complaint: EDShortnessOfBreath Stated Complaint: DIFF BREATHING Time Seen by Provider: 11/17/16 15:05 Hx Obtained From: Patient Onset/Duration: Gradual Onset Initial Severity: Moderate Current Severity: Moderate Pain Intensity: 5 Character: Cough (Productive) - yellow/green sputum Sputum Amount: Moderate Sputum Color: Yellow, Green Aggravating Factor(s): Nothing Alleviating Factor(s): Nothing - no effect of nebulizers Associated Signs and Symptoms: SOB, Chest Pain, Dyspnea - Allergy/Home Medications Allergies/Adverse Reactions: Allergies Allergy/AdvReac Type Severity Reaction Status Date / Time No Known Allergies Allergy Verified 11/17/16 13:34 PMH/Surg Hx/FS Hx/Imm Hx Endocrine/Hematology History: Denies: Hx Anticoagulant Therapy, Hx Diabetes, Hx Systemic Lupus Erythematosus, Hx Thyroid Disease Cardiovascular History: Reports: Hx Atrial Fibrillation - no anticoagulants used currently, Hx Hypertension Denies: Hx Congestive Heart Failure, Hx Deep Vein Thrombosis, Hx Myocardial Infarction, Hx Pacemaker/ICD Comment Only: Other Cardiovascular Problems/Disorders - A FIB Respiratory History: Reports: Hx Asthma, Hx Chronic Obstructive Pulmonary Disease (COPD) Denies: Hx Lung Cancer, Hx Pneumonia, Hx Pulmonary Embolism GI History: Reports: Hx Gastrointestinal Bleed, Hx Obstructive Bowel, Other GI Disorders - colostomy Denies: Hx Gall Bladder Disease, Hx Ulcer, Hx Urosepsis History: Denies: Hx Kidney Stones, Hx Renal Disease Musculoskeletal History: Denies: Hx Arthritis, Hx Rheumatoid Arthritis, Hx Osteoporosis Sensory History: Reports: Hx Contacts or Glasses Opthamlomology History: Reports: Hx Contacts or Glasses Neurological History: Denies: Hx Dementia, Hx Migraine, Hx Seizures, Hx Transient Ischemic Attacks (TIA) Psychiatric History: Denies: Hx Anxiety, Hx Depression, Hx Schizophrenia, Hx Bipolar Disorder - Cancer History Hx Chemotherapy: No - Surgical History Surgery Procedure, Year, and Place: COLECTOMY FOR ULCERATIVE COLITIS AT [facility] - has ostomy now 12/2012; bilat knees for cartilage. Tonsils Hx Anesthesia Reactions: No - Immunization History Date of Influenza Vaccine: 06/07/16 Infectious Disease History: No Infectious Disease History: Reports: Hx Hepatitis - hep c Denies: Hx Clostridium Difficile, Hx Human Immunodeficiency Virus (HIV), Hx of Known/Suspected MRSA, Hx Shingles, Hx Tuberculosis, Hx Known/Suspected VRE, Hx Known/Suspected VRSA, History Other Infectious Disease, Traveled Outside the [place] in Last 30 Days - Family History Known Family History: Positive: Hypertension, Respiratory Disease, Other - adopted - Social History Occupation: Unemployed Alcohol Use: Occasionally Alcohol Amount: 3-4/WEEK Substance Use Type: Reports: None Smoking Status (MU): Former Smoker Type: Cigarettes Amount Used/How Often: 1/2 ppd Have You Smoked in the Last Year: Yes Review of Systems Negative: Fever, Chills Negative: Erythema Negative: Sore Throat Positive: Chest Pain Positive: Shortness Of Breath, Cough - productive cough with yellow/green sputum Negative: Abdominal Pain, Vomiting, Nausea Negative: dysuria, hematuria Negative: Myalgia, Edema Negative: Rash Neurological: Other - no dizziness All Other Systems Reviewed And Are Negative: Yes Physical Exam - Summary Physical Exam Summary: Constitutional: Well-developed, Well-nourished, Alert. Tripod Position. Skin: Warm, Dry HENT: Normocephalic; Atraumatic Eyes: Conjunctiva normal Neck: Musculoskeletal ROM normal neck. (-) JVD, (-) Stridor, (-) Tracheal deviation Cardio: Rhythm regular, rate normal, Heart sounds normal; Intact distal pulses; The pedal pulses are 2+ and symmetric. Radial pulses are 2+ and symmetric. (-) Murmur Pulmonary/Chest wall: Expiratory Wheezes, Fragmented sentences. (-) Rales Abd: Soft, (-) Tenderness, (-) Distension, (-) Guarding, (-) Rebound Musculoskeletal: (-) Edema Lymph: (-) Cervical adenopathy Neuro: Alert, Oriented x3 Psych: Mood and affect Normal Triage Information Reviewed: Yes Vital Signs On Initial Exam: Initial Vitals Temp Pulse Resp BP Pulse Ox 97.1 F 96 16 116/92 93 11/17/16 14:53 11/17/16 14:53 11/17/16 14:53 11/17/16 14:53 11/17/16 14:53 Vital Signs Reviewed: Yes Diagnostics - Vital Signs Vital Signs Temp Pulse Resp BP Pulse Ox 11/17/16 15:04 101 32 93 11/17/16 14:53 97.1 F 96 16 116/92 93 - Laboratory Result Diagrams: 11/17/16 15:12 11/17/16 15:12 Lab Statement: Any lab studies that have been ordered have been reviewed, and results considered in the medical decision making process. - Radiology CXR Radiology Interpretation Completed By: Radiologist - IMPRESSION: New RIGHT greater than LEFT alveolar consolidation compared with the recent chest radiographs most consistent with pneumonia. Correlate with clinical assessment. Underlying stigmata of COPD and emphysema. Radiographic follow-up after therapy warranted to assess for resolution. - EKG 15:00 Cardiac Rate: NL - 97 bpm EKG Rhythm: Sinus Rhythm Ectopy: None EKG Interpretation: no STEMI. Disposition - Diagnoses Provider Diagnoses: Healthcare-associated pneumonia, Respiratory distress Discharge - Discharge Plan Condition: Stable Disposition: ADMITTED TO [facility] documentation as recorded by the Pankaj rangel Adam accurately reflects the service I personally performed and the decisions made by Jhonathan crespo Jerry, MD.
[2016-11-18] MEDS ORDERED: Lisinopril TAB* 10 MG PO SCH (09:00)
[2016-11-18] MEDS ORDERED: Metoprolol Tartrate TAB* 100 MG TAB PO SCH (09:00)
[2016-11-18] MEDS: Docusate CAP* 100 MG PO SCH (10:25)
[2016-11-18 11:52] VITALS: BP 110/66
--- NOTE | 2016-11-19 02:50 | DS ---
DISCHARGE SUMMARY: DATE OF ADMISSION: 11/17/16 DATE OF DISCHARGE: 11/18/16 DISCHARGE DIAGNOSES: 1. Sepsis due to community-acquired pneumonia. 2. Chronic obstructive pulmonary disease exacerbation. SECONDARY DIAGNOSES: 1. History of chronic obstructive pulmonary disease, not oxygen dependent. 2. History of an episode of atrial fibrillation in 2016. 3. History of ulcerative colitis, status post colectomy and colostomy. 4. History of hepatitis C. MEDICATIONS AT DISCHARGE: Include: 1. Albuterol nebulizers 4 times a day. 2. Lisinopril 10 mg daily. 3. Dulera 100/5 one inhalation b.i.d. 4. Metoprolol tartrate 100 mg daily. 5. Albuterol inhaler 2 puffs every 4 hours p.r.n. 6. Prednisone 50 mg daily for a total of 5 days. 7. Azithromycin 250 mg p.o. daily for total of 4 days. 8. Omnicef 300 mg p.o. b.i.d. for total of 6 days. HOSPITALIZATION COURSE: Ozzie Yen is a 55-year-old male with history of COPD who presented complaining of cough and shortness of breath for couple of days. He was noted to have bilateral lung infiltrates. He was septic at admission. He was treated with ceftriaxone and azithromycin and kept over night. He was also treated for COPD exacerbation with intravenous Solu-Medrol with very good results. By the time of discharge, the patient still continues to wheeze somewhat, but his oxygenation improved to the point that he did not require oxygen at discharge. He also definitely feels better and stronger. He is going to be discharged home to follow up with his primary care provider, Dr. Allyn Heredia, in approximately 4 to 7 days. DISCHARGE LABORATORY DATA: White blood cell count of 16.2, hemoglobin of 13.8, hematocrit of 41, and platelets of 189. Sodium was 131, potassium 4.3, chloride 102, CO2 20, BUN 16, creatinine 0.8. Portable chest x-ray obtained at admission. Impression: "New right greater than left alveolar consolidation compared with the recent chest radiograph most consistent with pneumonia. Correlate with clinical assessment. Underlying stigmata of COPD and emphysema. Radiographic followup after therapy warranted to assess resolution." PHYSICAL EXAMINATION: At the time of discharge, blood pressure of 110/66, heart rate of 72 and regular, respiratory rate 16, oxygen saturation 96% on room air, temperature 97.5. General: The patient is a very pleasant 55-year- old male who is in no acute distress. The patient is alert, awake, and oriented x3. HEENT: Head: Atraumatic and normocephalic. Eyes: Pupils equal, round, reactive to light and accommodation. Oropharynx clear. Mucosa moist. Neck: Supple. No JVD, no bruits bilaterally. Cardiovascular: Regular rate and rhythm. No murmur. Respiratory: Scant bilateral wheezes throughout bilateral lung evaluation. Abdomen: Soft and nontender. Bowel sounds present in all 4 quadrants. Extremities: There is no edema. Pulses are +2 bilaterally. No clubbing or cyanosis. Neuro Evaluation: Nonfocal. Speech clear. Cranial nerves II through XII grossly intact. Motor strength is 5/5 bilaterally. Please note that this is a short summary of the patient's hospital stay, please refer to further medical records for details. CC: Dr. Allyn Heredia * [id number]/[facility] #: [id number] ELIUD
== END 2016-11-18 13:55 | disposition home or self-care (01) ==
LOC: ED 14:51 → INTOOBSV 16:28 → MED 16:28
PROVIDERS: ADMIT Internal Medicine; ATTEND Internal Medicine
DX: A40.3 Sepsis due to Streptococcus pneumoniae (principal); J44.9 Chronic obstructive pulmonary disease, unspecified; I48.91 Unspecified atrial fibrillation; Z87.891 Personal history of nicotine dependence; B18.2 Chronic viral hepatitis C
CPT/HCPCS: 36415; 71010; 80048; 80053; 83605; 84484; 85025; 87040; 87899; 93005; 94640; 94760; 96374; 99212; 99284; A9270-GY; G0378; G0463; J0456; J0692; J0696; J0744; J1644; J2930

== ENCOUNTER 2017-02-08 10:04 | Emergency (ER) | payer OTHER ==
[2017-02-08 10:37] VITALS: BP 133/96
[2017-02-08] MEDS ORDERED: Ipratropium 0.5MG/2.5ML NEB* 0.5 MG/2.5 ML NEB.SOLN INH ONE ×2 (10:38→11:35)
[2017-02-08] MEDS ORDERED: Albuterol 2.5 MG/3 ML NEB.SOL* (0.083%) INH ONE ×2 (10:38→11:35)
[2017-02-08] MEDS ORDERED: methylPREDNISolone 125 MG* 2 ML VIAL IM ONE (10:38)
[2017-02-08] MEDS ORDERED: Aspirin Low Dose CHEW TAB* 81 MG PO ONE (11:46)
--- NOTE | 2017-02-08 15:51 | UC ---
Shortness of Breath HPI - HPI Summary HPI Summary: PT WITH H/O COPD, ASTHMA, AFIB, HTN HERE WITH 2 DAYS OF WORSENING SOB. PT STATES THAT HE ENCOUNTERS THIS PROBLEM EVERY 3-4 MONTHS. HIS INHALERS ARE NOT WORKING AND TODAYS HE STARTED HAVING COUGH WITH THICK YELLOW SPUTUM. HOWEVER THIS TIME IS DIFFERENT IN THAT HE IS ALSO HAVING BURNING SUB STERNAL PAIN IN HIS CHEST. - History of Current Complaint Chief Complaint: UCRespiratory Stated Complaint: COPD,COUGH Time Seen by Provider: 02/08/17 10:18 Hx Obtained From: Patient Onset/Duration: Gradual Onset, Lasting Days, Still Present Timing: Constant Current Severity: Moderate Dyspnea At: Rest Aggrevating Factors: Movement, Recumbent Position Alleviating Factors: Nothing Associated Signs & Symptoms: Positive: Cough (Productive), Wheezing, Chest Pain Unrelated to Cough. Negative: Fever, Chills, Diaphoresis, Nasal Congestion, Dizzy, Calf Pain/Swelling, Edema - Allergy/Home Medications Allergies/Adverse Reactions: Allergies Allergy/AdvReac Type Severity Reaction Status Date / Time Ciprofloxacin Allergy Itching Verified 02/08/17 10:38 Home Medications: Home Medications Salmeterol DISKUS (NF) [Serevent Diskus (NF)] 1 puff INH DAILY 02/08/17 [ History Confirmed 02/08/17] PMH/Surg Hx/FS Hx/Imm Hx Endocrine History Of: Denies: Diabetes, Thyroid Disease, Hyperthyroidism, Hypothyroidism, Dyslipidemia Cardiovascular History Of: Reports: Cardiac Disorders - A-Fib, Hypertension, Atrial Fibrillation Denies: Pacemaker/ICD, Myocardial Infarction, Congestive Heart Failure, Deep Vein Thrombosis, Bleeding Disorders Respiratory History Of: Reports: COPD, Asthma Denies: Bronchitis, Pneumonia, Pulmonary Embolism GI/ History Of: Reports: Gastrointestinal Bleed Denies: Gastroesophageal Reflux, Ulcer, Gall Bladder Disease, Kidney Stones, Diverticulitis, Renal Disease, Urosepsis Neurological History Of: Denies: TIA, CVA, Dementia, Seizures, Migraine Psychological History Of: Denies: Anxiety, Depression, Bipolar Disorder, Schizophrenia, Post Traumatic Stress Disorder Cancer History Of: Denies: Lung Cancer, Colorectal Cancer, Breast Cancer, Prostate Cancer, Cervical Cancer Other History Of: Hepatitis C - He just finished treatment for it. Negative For: HIV, Hepatitis B, Anticoagulant Therapy - Surgical History Surgical History: Yes Surgery Procedure, Year, and Place: COLECTOMY FOR ULCERATIVE COLITIS AT [facility] - has ostomy now 12/2012; bilat knees for cartilage. Tonsils - Family History Known Family History: Positive: Unknown - adopted, Hypertension, Respiratory Disease, Other - adopted - Social History Alcohol Use: Daily Alcohol Amount: 2 drinks Substance Use Type: None Smoking Status (MU): Former Smoker Type: Cigarettes Amount Used/How Often: 1/2 ppd Length of Time of Smoking/Using Tobacco: 40 years Have You Smoked in the Last Year: Yes When Did the Patient Quit Smoking/Using Tobacco: 9 months ago Household Exposure Type: Cigarettes - Immunization History Most Recent Influenza Vaccination: Fall 2015 Most Recent Tetanus Shot: 04/29/16 Most Recent Pneumonia Vaccination: 04/29/16 Review of Systems Constitutional: Negative Skin: Negative Eyes: Negative Respiratory: Shortness Of Breath, Cough Cardiovascular: Chest Pain Gastrointestinal: Negative Genitourinary: Negative Neurological: Negative Psychological: Negative All Other Systems Reviewed And Are Negative: Yes Physical Exam Triage Information Reviewed: Yes Appearance: Well-Appearing, No Pain Distress, Well-Nourished Vital Signs: Initial Vital Signs Temp 98.3 F 02/08/17 10:33 Pulse 112 02/08/17 10:33 Resp 26 02/08/17 10:33 BP 133/96 02/08/17 10:33 Pulse Ox 96 02/08/17 10:33 Vital Signs Reviewed: Yes Eyes: Positive: Conjunctiva Clear. Negative: Discharge ENT: Positive: Hearing grossly normal. Negative: Muffled/hoarse voice Neck: Positive: Supple, Nontender, No Lymphadenopathy Respiratory: Positive: No accessory muscle use, Respiratory distress - mild, Wheezing - diffuse all key Cardiovascular: Positive: No Murmur, Brisk Capillary Refill, Tachycardia Musculoskeletal Exam: Normal Neurological: Positive: Alert, Muscle Tone Normal Psychological: Positive: Age Appropriate Behavior Skin Exam: Normal Shortness of Breath Dx - Differential Dx/Diagnosis Differential Diagnosis/HQI/PQRI: Bronchitis, COPD Exacerbation, [place], Unstable Angina Provider Diagnoses: cp r/o acs, copd exacerbation Discharge - Discharge Plan Condition: Stable Disposition: [facility] Referrals: Allyn Heredia MD [Primary Care Provider] -
== END 2017-02-08 12:24 | disposition short-term general hospital (02) ==
LOC: UCEAST 10:04
DX: R07.89 Other chest pain (principal); J44.1 Chronic obstructive pulmonary disease with (acute) exacerbation; Z88.1 Allergy status to other antibiotic agents; I48.91 Unspecified atrial fibrillation; I10 Essential (primary) hypertension; K21.9 Gastro-esophageal reflux disease without esophagitis; Z86.19 Personal history of other infectious and parasitic diseases
CPT/HCPCS: 93005; 99214; A9270-GY; G0463; J2930; J7644

== ENCOUNTER 2017-02-08 12:31 | Observation (INO) | payer OTHER ==
[2017-02-08] MEDS ORDERED: methylPREDNISolone 125 MG* 2 ML VIAL IV ONE (13:16)
[2017-02-08 13:39] LABS: Hematocrit 54 % (42-52); Hemoglobin 18.3 g/dl (14.0-18.0); Mean Corpuscular HGB Conc 34 g/dl (31-36); Mean Corpuscular Hemoglobin 33 pg (27-31); Mean Corpuscular Volume 97 fL (80-94); Mean Platelet Volume 9 um3 (7.4-10.4); Red Blood Count 5.61 10^6/ul (4.0-5.4); Red Cell Distribution Width 14 % (10.5-15); White Blood Count 10.2 10^3/ul (3.5-10.8)
[2017-02-08 13:41] LABS: Add Diff/Slide Review? Slide Review Added; Comments Flag Yes
--- NOTE | 2017-02-08 13:44 | RAD ---
INDICATION: Shoulder breath COMPARISON: November 17, 2016 TECHNIQUE: PA and lateral dual-energy views were obtained. FINDINGS: Bones/Soft Tissues: There are no acute bony findings. Cardiomediastinal: The cardiomediastinal silhouette is normal. Lungs: There are no infiltrates. There is hyperinflation Pleura: There are no pleural effusions. Other: None IMPRESSION: HYPERINFLATION. NO ACTIVE DISEASE.
[2017-02-08] MEDS: Albuterol/Ipratropium NEB.SOL* Albuterol 2.5 MG/Ipratropium 0.5 MG 3 ML INH SCH ×2 (13:50→13:57)
[2017-02-08 13:56] LABS: Albumin 4.6 g/dL (3.2-5.2); BUN/Creatinine Ratio 6.8 (8-20); C Reactive Protein 1.3 mg/L (< 5.00); Calcium 9.6 mg/dL (8.6-10.3); EGFR African American 142.9 (>60); EGFR Non-African American 111.1 (>60); Globulin 2.6 g/dL (2-4); Potassium 3.9 mmol/L (3.5-5.0); Total Bilirubin 1.1 mg/dL (0.2-1.0); Total Protein 7.2 g/dL (6.4-8.9)
[2017-02-08 13:57] LABS: Troponin I 0.02 ng/mL (<0.04)
[2017-02-08] MEDS ORDERED: cefTRIAXone(*) 1 GM in NS 0.9% 50 ML* 50 ML IVPB ONE (14:37)
[2017-02-08] MEDS ORDERED: Albuterol/Ipratropium NEB.SOL* Albuterol 2.5 MG/Ipratropium 0.5 MG 3 ML INH ONE (17:11)
[2017-02-08] MEDS ORDERED: NS 0.9% 1000 ML* 1,000 ML IV ONE (17:34)
[2017-02-08 17:35] LABS: PCO2 Arterial 34 mmHg (35-45)
[2017-02-08 17:53] LABS: Urine Bacteria Absent (Absent); Urine Bilirubin Negative (Negative); Urine Glucose Negative (Negative); Urine Nitrite Negative (Negative)
--- NOTE | 2017-02-08 18:14 | ED ---
Shilo Rosenberg Billy, scribed for Francisco Benson MD on 02/08/17 at 1308 . Shortness of Breath - HPI Summary HPI Summary: Patient is a 56 year-old male coming to [facility] for evaluation of numerous complaints, including right anterior burning chest pain, productive cough, and shortness of breath. He states that he has yellow-green sputum with his cough. Patient feels lightheaded. He has intermittent episodes of nausea and vomiting, as well. Denies fevers or chills. His chest pain is entirely unassociated with cough. - History of Current Complaint Chief Complaint: EDShortnessOfBreath Time Seen by Provider: 02/08/17 13:04 Hx Obtained From: Patient Onset/Duration: Gradual Onset, Lasting Days Timing: Constant Current Severity: Moderate Dyspnea At: Rest Aggrevating Factors: Nothing Alleviating Factors: Nothing Associated Signs & Symptoms: Cough (Productive), Chest Pain Unrelated to Cough - Allergy/Home Medications Allergies/Adverse Reactions: Allergies Allergy/AdvReac Type Severity Reaction Status Date / Time Ciprofloxacin Allergy Itching Verified 02/08/17 10:38 PMH/Surg Hx/FS Hx/Imm Hx Endocrine/Hematology History: Denies: Hx Anticoagulant Therapy, Hx Diabetes, Hx Systemic Lupus Erythematosus, Hx Thyroid Disease Cardiovascular History: Reports: Hx Atrial Fibrillation - no anticoagulants used currently, Hx Hypertension Denies: Hx Congestive Heart Failure, Hx Deep Vein Thrombosis, Hx Myocardial Infarction, Hx Pacemaker/ICD Comment Only: Other Cardiovascular Problems/Disorders - A FIB Respiratory History: Reports: Hx Asthma, Hx Chronic Obstructive Pulmonary Disease (COPD) Denies: Hx Lung Cancer, Hx Pneumonia, Hx Pulmonary Embolism GI History: Reports: Hx Gastrointestinal Bleed, Hx Obstructive Bowel, Hx Ileostomy - colostomy 2012, Other GI Disorders - colostomy Denies: Hx Gall Bladder Disease, Hx Ulcer, Hx Urosepsis History: Denies: Hx Kidney Stones, Hx Renal Disease Musculoskeletal History: Denies: Hx Arthritis, Hx Rheumatoid Arthritis, Hx Osteoporosis Sensory History: Reports: Hx Contacts or Glasses Opthamlomology History: Reports: Hx Contacts or Glasses Neurological History: Denies: Hx Dementia, Hx Migraine, Hx Seizures, Hx Transient Ischemic Attacks (TIA) Psychiatric History: Denies: Hx Anxiety, Hx Depression, Hx Schizophrenia, Hx Bipolar Disorder - Cancer History Hx Chemotherapy: No - Surgical History Surgery Procedure, Year, and Place: COLECTOMY FOR ULCERATIVE COLITIS AT [facility] - has ostomy now 12/2012; bilat knees for cartilage. Tonsils Hx Anesthesia Reactions: No - Immunization History Date of Influenza Vaccine: 06/07/16 Infectious Disease History: Yes Infectious Disease History: Reports: Hx Hepatitis - hep c Denies: Hx Clostridium Difficile, Hx Human Immunodeficiency Virus (HIV), Hx of Known/Suspected MRSA, Hx Shingles, Hx Tuberculosis, Hx Known/Suspected VRE, Hx Known/Suspected VRSA, History Other Infectious Disease, Traveled Outside the [place] in Last 30 Days - Family History Known Family History: Positive: Unknown - Patient is adopted, family history is unknown. - Social History Alcohol Use: Daily Alcohol Amount: 2 drinks Substance Use Type: Reports: None Smoking Status (MU): Former Smoker Type: Cigarettes Amount Used/How Often: 1/2 ppd Length of Time of Smoking/Using Tobacco: 40 years Have You Smoked in the Last Year: Yes Review of Systems Positive: Chest Pain Positive: Shortness Of Breath, Cough Positive: Vomiting, Nausea Neurological: Other - lightheaded All Other Systems Reviewed And Are Negative: Yes Physical Exam - Summary Physical Exam Summary: VITAL SIGNS: Reviewed. GENERAL: Patient is a well developed and nourished male with some distress secondary to the shortness of breath. However, he is able to speak in full sentences. HEAD AND FACE: Normocephalic and atraumatic. EYES: PERRLA, EOMI x 2, No injected conjunctiva. EARS: Hearing grossly intact. Ear canals and tympanic membranes WNL MOUTH: Dry oral mucosa. NECK: Supple, trachea is midline, no adenopathy, no JVD, no carotid bruit. CHEST: Symmetric, No intercostal or abdominal retraction, LUNGS: Diffuse bilateral wheezing and decreased breath sounds.No crackles. CVS: RRR,, S1 and S2 present, no murmurs or gallops appreciated. ABDOMEN: Soft, non-tender. No signs of distention. Positive BS. No rebound, no guarding, and no masses palpated. EXTREMITIES: FROM in all major joints, no edema, no cyanosis or clubbing. NEURO: Alert and oriented x 3. No acute neurological deficits. Speech is normal and follows commands. SKIN: Dry and warm Triage Information Reviewed: Yes Vital Signs On Initial Exam: Initial Vitals BP 144/110 02/08/17 12:40 Vital Signs Reviewed: Yes - Yen Coma Scale Coma Scale Total: 15 Diagnostics - Vital Signs Vital Signs Temp Pulse Resp BP Pulse Ox 02/08/17 12:53 92 23 133/92 97 02/08/17 12:42 98.5 F 114 24 144/110 95 02/08/17 12:40 144/110 - Laboratory Lab Results: Lab Results 02/08/17 02/08/17 02/08/17 Range/Units 12:00 12:00 12:00 WBC 10.2 (3.5-10.8) 10^3/ul RBC 5.61 H (4.0-5.4) 10^6/ul Hgb 18.3 H (14.0-18.0) g/dl Hct 54 H (42-52) % MCV 97 H (80-94) fL MCH 33 H (27-31) pg MCHC 34 (31-36) g/dl RDW 14 (10.5-15) % Plt Count 226 (150-450) 10^3/ul MPV 9 (7.4-10.4) um3 Neut % (Auto) 77.8 (38-83) % Lymph % (Auto) 7.2 L (25-47) % Hudspeth % (Auto) 7.4 (1-9) % Eos % (Auto) 5.7 (0-6) % Baso % (Auto) 1.9 (0-2) % Absolute Neuts (auto) 7.9 H (1.5-7.7) 10^3/ul Absolute Lymphs (auto) 0.7 L (1.0-4.8) 10^3/ul Absolute Monos (auto) 0.7 (0-0.8) 10^3/ul Absolute Eos (auto) 0.6 (0-0.6) 10^3/ul Absolute Basos (auto) 0.2 (0-0.2) 10^3/ul Absolute Nucleated RBC 0.01 10^3/ul Nucleated RBC % 0 Sodium 133 (133-145) mmol/L Potassium 3.9 (3.5-5.0) mmol/L Chloride 101 (101-111) mmol/L Carbon Dioxide 23 (22-32) mmol/L Anion Gap 9 (2-11) mmol/L BUN 5 L (6-24) mg/dL Creatinine 0.73 (0.67-1.17) mg/dL Est GFR ( Amer) 142.9 (>60) Est GFR (Non-Af Amer) 111.1 (>60) BUN/Creatinine Ratio 6.8 L (8-20) Glucose 107 H (70-100) mg/dL Lactic Acid (0.5-2.0) mmol/L Calcium 9.6 (8.6-10.3) mg/dL Total Bilirubin 1.10 H (0.2-1.0) mg/dL AST 45 H (13-39) U/L ALT 40 (7-52) U/L Alkaline Phosphatase 111 H (34-104) U/L Total Creatine Kinase 143 (10-223) U/L CK-MB (CK-2) 12.8 H (0.6-6.3) ng/mL Troponin I 0.02 (<0.04) ng/mL C-Reactive Protein 1.30 (< 5.00) mg/L B-Natriuretic Peptide 38 ( - 100) pg/mL Total Protein 7.2 (6.4-8.9) g/dL Albumin 4.6 (3.2-5.2) g/dL Globulin 2.6 (2-4) g/dL Albumin/Globulin Ratio 1.8 (1-3) / Range/Units 14:01 WBC (3.5-10.8) 10^3/ul RBC (4.0-5.4) 10^6/ul Hgb (14.0-18.0) g/dl Hct (42-52) % MCV (80-94) fL MCH (27-31) pg MCHC (31-36) g/dl RDW (10.5-15) % Plt Count (150-450) 10^3/ul MPV (7.4-10.4) um3 Neut % (Auto) (38-83) % Lymph % (Auto) (25-47) % Hudspeth % (Auto) (1-9) % Eos % (Auto) (0-6) % Baso % (Auto) (0-2) % Absolute Neuts (auto) (1.5-7.7) 10^3/ul Absolute Lymphs (auto) (1.0-4.8) 10^3/ul Absolute Monos (auto) (0-0.8) 10^3/ul Absolute Eos (auto) (0-0.6) 10^3/ul Absolute Basos (auto) (0-0.2) 10^3/ul Absolute Nucleated RBC 10^3/ul Nucleated RBC % Sodium (133-145) mmol/L Potassium (3.5-5.0) mmol/L Chloride (101-111) mmol/L Carbon Dioxide (22-32) mmol/L Anion Gap (2-11) mmol/L BUN (6-24) mg/dL Creatinine (0.67-1.17) mg/dL Est GFR ( Amer) (>60) Est GFR (Non-Af Amer) (>60) BUN/Creatinine Ratio (8-20) Glucose (70-100) mg/dL Lactic Acid 1.4 (0.5-2.0) mmol/L Calcium (8.6-10.3) mg/dL Total Bilirubin (0.2-1.0) mg/dL AST (13-39) U/L ALT (7-52) U/L Alkaline Phosphatase (34-104) U/L Total Creatine Kinase (10-223) U/L CK-MB (CK-2) (0.6-6.3) ng/mL Troponin I (<0.04) ng/mL C-Reactive Protein (< 5.00) mg/L B-Natriuretic Peptide ( - 100) pg/mL Total Protein (6.4-8.9) g/dL Albumin (3.2-5.2) g/dL Globulin (2-4) g/dL Albumin/Globulin Ratio (1-3) Result Diagrams: 02/08/17 12:00 02/08/17 12:00 Lab Statement: Any lab studies that have been ordered have been reviewed, and results considered in the medical decision making process. - Radiology CXR Radiology Interpretation Completed By: Radiologist - Hyperinflation. No active disease. - EKG 1413 EKG Interpretation: NSR 92 bpm, no STEMI Course/Dx - Course Assessment/Plan: Patient is a 56 year-old male coming to [facility] for evaluation of numerous complaints, including right anterior burning chest pain, productive cough, and shortness of breath. He states that he has yellow-green sputum with his cough. Patient feels lightheaded. He has intermittent episodes of nausea and vomiting, as well. Denies fevers or chills. His chest pain is entirely unassociated with cough. Test results WNL except for increased H&H probably secondary to dehydration, glucose 107, troponin 0.02. CXR shows no pneumonia. In the ED course, the patient was given IV fluids, 4x duonebs, and solu-medrol. After all of these medications, the patient is still very tight. Without O2, he saturates in the low 90s-upper 80s. At this time, the patient is still tachycardic. Therefore I discussed the case with Dr. Spears who accepted the patient for admission to his services for further workup and management. He is hemodynamically stable, A&Ox3. - Diagnoses Differential Diagnosis/HQI/PQRI: Positive: Asthma, Bronchitis, COPD Exacerbation Provider Diagnoses: COPD exacerbation - Physician Notifications Discussed Care of Patient With: Dr. Spears (hospitalist) at 1740: accepts admission. Discharge - Discharge Plan Condition: Stable Disposition: ADMITTED TO [facility] Referrals: Allyn Heredia MD [Primary Care Provider] - The documentation as recorded by the Shilo rangel Billy accurately reflects the service I personally performed and the decisions made by me, Francisco Benson MD.
[2017-02-08] MEDS ORDERED: Azithromycin TAB* 250 MG PO ONE (20:48)
[2017-02-08] MEDS ORDERED: Albuterol HFA INHALER* 8 gm MDI INH PRN (20:54)
[2017-02-08] MEDS: Heparin VIAL(*) 5000 UNITS/ML VIAL (FIVE THOUSAND) SUBCUT SCH (21:18)
[2017-02-08] MEDS: Metoprolol Tartrate TAB* 50 mg PO SCH (21:18)
[2017-02-08] MEDS: Albuterol 2.5 MG/3 ML NEB.SOL* (0.083%) INH SCH (23:14)
[2017-02-08] MEDS: Mometasone/Formoter 200/5 MDI INH SCH (23:14)
--- NOTE | 2017-02-09 01:56 | HP ---
HISTORY AND PHYSICAL: DATE OF ADMISSION: 02/08/17 PRIMARY CARE PROVIDER: Dr. Allyn Heredia. ATTENDING PHYSICIAN: Dr. Eliza Kruger *(dictated by Kelsea Bright NP). CHIEF COMPLAINT: Increased shortness of breath. HISTORY OF PRESENT ILLNESS: Mr. Yen is a 56-year-old male with past medical history significant for COPD, paroxysmal atrial fibrillation, ulcerative colitis, and hepatitis C, who presents to the emergency room today with complaints of right- sided anterior burning chest discomfort, productive cough, and shortness of breath. The patient states that his sputum is yellow to green in color. The patient also reports just generally not feeling well over the last 3 days. Due to his symptoms, he presented to urgent care for further evaluation, who then directed him to the emergency room. The patient also notes that he has not been taking his Lopressor for approximately a month since he has not had insurance and he ran out of his prescription. The patient also notes that he was noted to possibly have blood in his colostomy bag and his primary care provider stopped his Xarelto and set him up with an appointment for an upper GI study on February 18. While in the urgent care, the patient had had an EKG showing a sinus tachycardia and a rate of 104. While in the emergency room, the patient received IV Solu-Medrol, ceftriaxone, and albuterol nebulizer. He had an EKG showing a sinus tachycardia with a rate of 92. No acute signs of ischemia. This EKG is similar to previous EKG from . The patient also had a chest x-ray showing hyperinflation and no active disease. He had an ABG. The patient's labs were unremarkable. He did have a slightly elevated hemoglobin, I suspect related to dehydration. He has a troponin of 0.02 and 0.01. The patient's oxygen saturations were in the low 90s to upper 80s. The patient continued to be tachycardic and the hospitalists were asked to evaluate the patient for admission. 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 He feels that the humidity and heat of the oven are exacerbating his symptoms. PAST MEDICAL HISTORY: 1. COPD. 2. Paroxysmal atrial fibrillation. 3. Ulcerative colitis. 4. Hepatitis C, the patient states he has completed treatment for this. PAST SURGICAL HISTORY: 1. Status post colostomy placement. 2. Status post bilateral knee arthroscopy. 3. Status post tonsillectomy. ALLERGIES: CIPRO. FAMILY HISTORY: The patient is adopted and is unaware of his family history. SOCIAL HISTORY: The patient is a former smoker. He reports quitting 9 months ago, prior to that, he had a 40-year, 4-zlaj-u-day history. The patient drinks 2 whiskey or tequila daily. He denies recreational drug use. 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 The patient's friend, Julia Royal, will be his surrogate decision maker in the event that he is unable to make decisions for himself. REVIEW OF SYSTEMS: I performed a 14-point review of systems. All the pertinent positives and negatives are mentioned in the history of present illness. The remaining review of systems is negative with the exception that the patient reporting that over the last few days, he has had trouble starting his urinary flow but denies any other urinary symptoms. PHYSICAL EXAMINATION GENERAL APPEARANCE: The patient is alert, pleasant, and appears to be in no acute distress. VITAL SIGNS: Temperature 98.5, heart rate 118, respiratory rate 27, O2 sat 95% on room air, blood pressure 124/94. HEENT: Normocephalic, atraumatic. Pupils are equal and reactive to light. Extraocular movements are intact. RESPIRATORY: There is no accessory muscle use and the lungs are clear to auscultation bilateral but diminished. CARDIOVASCULAR: Regular rate and rhythm. S1, S2 present. There are no murmurs , rubs, or gallops. ABDOMEN: Soft, nontender, nondistended. There are bowel sounds present x4. EXTREMITIES: There is no lower extremity edema. DP and PT pulses are 2+ and symmetric. MUSCULOSKELETAL: There is no clubbing or cyanosis noted. The patient exhibits good strength in all extremities. NEUROLOGIC: The patient is alert and oriented x4. Cranial nerves II through XII were grossly intact. PSYCHOLOGICAL: The patient is calm and cooperative. SKIN: There are no rashes or abnormalities seen. DIAGNOSTIC STUDIES/LAB DATA: Sodium 133, potassium 3.9, chloride 101, CO2 23, BUN 5, creatinine 0.73, glucose of 107. Troponin 0.02, 0.01. White blood cell count 10.2, hemoglobin 18.3, hematocrit 54, platelet count 226. ABG shows a pH of 7.38, PCO2 34, PO2 75, HCO3 21.6, O2 sat 97%, base excess negative 4.0. EKG shows a sinus tachycardia with a rate of 92, there are no acute signs of ischemia. This EKG is similar to previous EKGs from 11/17/16. Chest x-ray from today. Radiologist impression: Hyperinflation. No active disease. IMPRESSION: Mr. Yen is a 56-year-old male with past medical history significant for paroxysmal atrial fibrillation, chronic obstructive pulmonary disease, ulcerative colitis, who presents to the emergency room with complaints of worsening shortness of breath and right-sided chest discomfort. He will be admitted in observation for chronic obstructive pulmonary disease exacerbation and chest pain rule out. ASSESSMENT/PLAN: 1. Chronic obstructive pulmonary disease exacerbation. The patient received IV Solu-Medrol and ceftriaxone in the emergency room. We will continue the patient on monotherapy of azithromycin and switch him to oral prednisone in the morning. He will have nebs every 4 hours while awake. 2. Chest discomfort. The patient's troponins will be trended. He will be monitored on telemetry. I suspect his chest discomfort is related to his chronic obstructive pulmonary disease exacerbation. I recommend that he undergo stress test but not during his chronic obstructive pulmonary disease exacerbation; this can be done as an outpatient set up by his primary care provider. 3. Atrial fibrillation. The patient is currently in a sinus rhythm. We are going to resume the patient's Lopressor with metoprolol tartrate 50 mg twice daily. For now, we will continue to hold the patient's Xarelto until he has further workup for his possible gastrointestinal bleeding and defer resuming his anticoagulation. She has primary care provider. 4. Tachycardia. I suspect this could be related to the patient being off his Lopressor. We are going to resume the patient's Lopressor. 5. Fluids, electrolytes, and nutrition. The patient will be on a heart healthy diet. 6. Code status. Full code. 7. DVT prophylaxis. The patient is at moderate risk and will have subcu heparin. 8. Disposition. Observation. TIME SPENT: Time for this admission was 60 minutes, greater than half of that was spent [id number] with the patient discussing medications, past medical history, events leading up to his arrival today, and performing a physical examination. The case has been reviewed with the attending, Dr. Kruger, who agrees with the plan of care. KELSEA MOMIN NP CC: Dr. Allyn Heredia* [id number]/CPS #: [id number] [id number]
[2017-02-09] MEDS: Albuterol 2.5 MG/3 ML NEB.SOL* (0.083%) INH SCH ×3 (03:00→11:19)
[2017-02-09] MEDS: Heparin VIAL(*) 5000 UNITS/ML VIAL (FIVE THOUSAND) SUBCUT SCH (05:33)
[2017-02-09] MEDS: Mometasone/Formoter 200/5 MDI INH SCH (07:31)
[2017-02-09] MEDS: Metoprolol Tartrate TAB* 50 mg PO SCH (07:49)
[2017-02-09] MEDS ORDERED: predniSONE TAB* 20 MG PO SCH (09:00)
[2017-02-09] MEDS ORDERED: Salmeterol DISKUS (NF) INH SCH (09:00)
[2017-02-09] MEDS ORDERED: Azithromycin TAB* 250 MG PO SCH (09:00)
[2017-02-09] MEDS ORDERED: Fluticasone DISKUS 250 MCG(NF) 1 PUFF DISKUS INH SCH (09:00)
[2017-02-09 11:05] LABS: Hematocrit 47 % (42-52); Hemoglobin 15.7 g/dl (14.0-18.0); Mean Corpuscular HGB Conc 34 g/dl (31-36); Mean Corpuscular Hemoglobin 33 pg (27-31); Mean Corpuscular Volume 98 fL (80-94); Mean Platelet Volume 8 um3 (7.4-10.4); Red Blood Count 4.78 10^6/ul (4.0-5.4); Red Cell Distribution Width 14 % (10.5-15); White Blood Count 28.1 10^3/ul (3.5-10.8)
[2017-02-09 11:08] LABS: Comments Flag Yes
[2017-02-09 11:09] LABS: Add Diff/Slide Review? Slide Review Added
[2017-02-09 11:21] LABS: BUN/Creatinine Ratio 21.5 (8-20); Calcium 9.5 mg/dL (8.6-10.3); EGFR African American 130.5 (>60); EGFR Non-African American 101.5 (>60); Globulin 2.3 g/dL (2-4); Potassium 4.8 mmol/L (3.5-5.0); Total Bilirubin 0.8 mg/dL (0.2-1.0); Total Protein 6.3 g/dL (6.4-8.9)
[2017-02-09 11:41] VITALS: BP 118/74
--- NOTE | 2017-02-10 08:37 | DS ---
DISCHARGE SUMMARY: DATE OF ADMISSION: 02/08/17. DATE OF DISCHARGE: 02/09/17. PRIMARY CARE PROVIDER: Dr. Heredia. DISCHARGING PROVIDER: KIA Truong. SUPERVISING PHYSICIAN: Juanita Adrian MD. (DICTATED BY KIA TRUONG) PRIMARY DISCHARGE DIAGNOSIS: 1. Chronic obstructive pulmonary disease exacerbation. SECONDARY DISCHARGE DIAGNOSES: 1. Paroxysmal atrial fibrillation with anticoagulation, currently held. 2. Ulcerative colitis with colostomy. 3. Hepatitis C status post treatment. DISCHARGE MEDICATIONS: 1. Nebulized albuterol inhaled q.4 hours as needed for shortness of breath. 2. Azithromycin 250 mg p.o. daily x4 days. 3. Flovent one puff inhaled twice daily. 4. Metoprolol succinate 100 mg p.o. daily. 5. Serevent one puff inhaled daily. 6. Prednisone 40 mg p.o. daily x4 days. MEDICATION CHANGES: 1. Azithromycin x4 days. 2. Prednisone x4 days. HOSPITAL IMAGIN. Chest x-ray shows no acute process. 2. EKG shows sinus tachycardia with a rate of about 105 beats per minute. HOSPITAL COURSE: This is a 56-year-old gentleman with history of COPD, as well as paroxysmal atrial fibrillation and ulcerative colitis with colostomy in place , who presented originally to [facility] and then transferred to the emergency department with complaints of shortness of breath and productive cough with right- sided chest pain. The patient's symptoms have been progressive over the several days prior. The patient had been without all of his medications for several months as he was unable to afford his co-pay as he was unemployed for a period of about 4 months. When patient reached the emergency department he was not significantly hypoxic, but was tachycardic, but appeared to be in a sinus rhythm. He was tachypneic with a respiratory rate of about 24 breaths per minute. The patient was subsequently admitted to an observation stay for a COPD exacerbation, started on methylprednisolone as well as nebulized albuterol treatments and azithromycin. The patient reports improvement in his dyspnea, although he does still occasionally have some episodes of shortness of breath, but much improved since yesterday. He has been able to get up and ambulate throughout the halls the morning of admission with some dyspnea, but nothing severely limiting. He continues to cough, but this has improved as well. He remained afebrile overnight. DISPOSITION AND FOLLOWUP PLAN: The patient is being discharged to home. 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 Also recommend an additional steroid burst for a total of 5 days, and an additional 4 days of azithromycin with close follow up with his primary care provider. KIA TRUONG CC: Dr. Heredia.* [id number]/[facility] #: [id number] ELIUD
== END 2017-02-09 13:53 | disposition home or self-care (01) ==
LOC: ED 12:31 → MEDTELE 17:42
PROVIDERS: ADMIT Internal Medicine; ATTEND Internal Medicine
DX: J44.1 Chronic obstructive pulmonary disease with (acute) exacerbation (principal); I48.0 Paroxysmal atrial fibrillation; Z79.01 Long term (current) use of anticoagulants; R00.0 Tachycardia, unspecified; K51.90 Ulcerative colitis, unspecified, without complications; Z93.3 Colostomy status; R07.9 Chest pain, unspecified; I51.7 Cardiomegaly; Z88.1 Allergy status to other antibiotic agents; Z79.899 Other long term (current) drug therapy; Z87.891 Personal history of nicotine dependence
CPT/HCPCS: 36415; 36600; 71020; 80053; 81003; 81015; 82550; 82553; 82803; 83605; 83880; 84484; 85025; 86140; 87040; 93005; 94640; 96361; 96365; 96372; 96375; 99283; A9270-GY; G0378; J0696; J1644; J2930; J7512

== ENCOUNTER 2017-03-05 10:11 | Emergency (ER) | payer OTHER ==
[2017-03-05] MEDS ORDERED: Ondansetron INJ* 2 MG/ML VIAL IV ONE ×2 (11:22→15:20)
[2017-03-05] MEDS ORDERED: NS 0.9% 1000 ML* 1,000 ML IV ONE ×3 (11:22→15:19)
--- NOTE | 2017-03-05 11:53 | ED ---
Abdominal Pain/Male - HPI Summary HPI Summary: 56 male presents with complaints of vomiting, diarrhea and abdominal and muscle cramping for the past 3-4 days. Patient states his abdominal cramping is chronic due to his colostomy bag that he had placed a while back. Patient states the feeling ill/light headed and muscle cramping is new and has been ongoing for the past 3-4 days. Patient is currently in the process of having an upper GI series and working with his GI doctor for possible GI bleed that began months ago, however since he was taken off his Xarelto he has not noticed any blood in colostomy bag. Patient states he drink and either vomits or has diarrhea and it comes right up/out. Denies fever/chills. Generalized ache and abdominal cramping that he has chronicly. 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 Has eaten take out food recently. Denies chest pain, difficulty breathing, melena, hematochezia , blood in vomit. Has COPD which he is taking medications for. No recent antibiotic use, travel or working with farm animals. - History of Current Complaint Chief Complaint: EDAbdPain Stated Complaint: VOMITING-3DAYS Time Seen by Provider: 03/05/17 10:52 Hx Obtained From: Patient Onset/Duration: Sudden Onset, Lasting Days, Still Present, Worse Since Timing: Constant Severity Initially: Mild Severity Currently: Moderate Pain Intensity: 6 Pain Scale Used: 0-10 Numeric Location: Diffuse Radiates: No Character: Cramping Aggravating Factor(s): Nothing Alleviating Factor(s): Nothing Associated Signs And Symptoms: Positive: Vomiting, Diarrhea - Allergies/Home Medications Allergies/Adverse Reactions: Allergies Allergy/AdvReac Type Severity Reaction Status Date / Time Ciprofloxacin Allergy Itching Verified 02/08/17 10:38 Home Medications: Home Medications Albuterol HFA INHALER* [Ventolin HFA Inhaler*] 2 puff INH Q6HR PRN 03/05/17 [ History Confirmed 03/05/17] Pantoprazole TAB (NF) [Protonix TAB (NF)] 40 mg PO DAILY 03/05/17 [History Confirmed 03/05/17] PMH/Surg Hx/FS Hx/Imm Hx Endocrine/Hematology History: Denies: Hx Anticoagulant Therapy, Hx Diabetes, Hx Systemic Lupus Erythematosus, Hx Thyroid Disease Cardiovascular History: Reports: Hx Atrial Fibrillation - no anticoagulants used currently, Hx Hypertension Denies: Hx Congestive Heart Failure, Hx Deep Vein Thrombosis, Hx Myocardial Infarction, Hx Pacemaker/ICD Comment Only: Other Cardiovascular Problems/Disorders - A FIB Respiratory History: Reports: Hx Asthma, Hx Chronic Obstructive Pulmonary Disease (COPD), Other Respiratory Problems/Disorders - PNA Denies: Hx Lung Cancer, Hx Pneumonia, Hx Pulmonary Embolism GI History: Reports: Hx Gastrointestinal Bleed, Hx Obstructive Bowel, Hx Ileostomy - colostomy 2012, Other GI Disorders - colostomy Denies: Hx Gall Bladder Disease, Hx Ulcer, Hx Urosepsis History: Denies: Hx Kidney Stones, Hx Renal Disease Musculoskeletal History: Reports: Hx Orthopedic Injury Denies: Hx Arthritis, Hx Rheumatoid Arthritis, Hx Osteoporosis Sensory History: Reports: Hx Contacts or Glasses Denies: Hx Hearing Aid Opthamlomology History: Reports: Hx Contacts or Glasses Neurological History: Denies: Hx Dementia, Hx Migraine, Hx Seizures, Hx Transient Ischemic Attacks (TIA) Psychiatric History: Denies: Hx Anxiety, Hx Depression, Hx Schizophrenia, Hx Bipolar Disorder - Cancer History Hx Chemotherapy: No - Surgical History Surgery Procedure, Year, and Place: COLECTOMY FOR ULCERATIVE COLITIS AT [facility] - has ostomy now 12/2012; bilat knees for cartilage. Tonsils Hx Anesthesia Reactions: No - Immunization History Date of Influenza Vaccine: 06/07/16 Infectious Disease History: No Infectious Disease History: Reports: Hx Hepatitis - hep c Denies: Hx Clostridium Difficile, Hx Human Immunodeficiency Virus (HIV), Hx of Known/Suspected MRSA, Hx Shingles, Hx Tuberculosis, Hx Known/Suspected VRE, Hx Known/Suspected VRSA, History Other Infectious Disease, Traveled Outside the [place] in Last 30 Days - Family History Known Family History: Positive: Unknown - Patient is adopted, family history is unknown., Hypertension, Respiratory Disease, Other - adopted - Social History Alcohol Use: Rare Alcohol Amount: 2 Substance Use Type: Reports: None Smoking Status (MU): Former Smoker Type: Cigarettes Amount Used/How Often: 1/2 ppd Length of Time of Smoking/Using Tobacco: 40 years Have You Smoked in the Last Year: Yes Review of Systems Constitutional: Negative Eyes: Negative ENT: Negative Cardiovascular: Negative Respiratory: Negative Positive: Abdominal Pain, Vomiting, Diarrhea Genitourinary: Negative Positive: Myalgia - "cramping" Skin: Negative All Other Systems Reviewed And Are Negative: Yes Physical Exam Triage Information Reviewed: Yes Vital Signs On Initial Exam: Initial Vitals Temp Pulse Resp BP Pulse Ox 96.2 F 97 20 107/85 100 03/05/17 10:12 03/05/17 10:12 03/05/17 10:12 03/05/17 10:12 03/05/17 10:12 Vital Signs Reviewed: Yes Appearance: Positive: Well-Appearing, No Pain Distress, Well-Nourished Skin: Positive: Warm, Skin Color Reflects Adequate Perfusion, Dry, Soft, Pale, Other - skin tenting-mildly delayed, cap refill ~ 2 seconds. Negative: Cold, Numb, Cyanosis @ Head/Face: Positive: Normal Head/Face Inspection Eyes: Positive: Normal, EOMI, WALLACE, Conjunctiva Clear ENT: Positive: Normal ENT inspection, Hearing grossly normal, TMs normal Dental: Negative: Cervical Lymphadenopathy Neck: Positive: Supple, Nontender, No Lymphadenopathy Respiratory/Lung Sounds: Positive: Clear to Auscultation, Breath Sounds Present. Negative: Rales, Rhonchi, Wheezes Cardiovascular: Positive: Normal, RRR, Pulses are Symmetrical in both Upper and Lower Extremities. Negative: Murmur, Rub Abdomen Description: Positive: No Organomegaly, Soft - colostomy bag in place, Other: - diffusely tender on palpation. Negative: Bruit, CVA Tenderness (R), CVA Tenderness (L), Distended, Guarding, McBurney's Point Tenderness, Peritoneal Signs, Pulsatile Mass Bowel Sounds: Positive: Present Musculoskeletal: Positive: Normal, Strength/ROM Intact. Negative: Pain @ Neurological: Positive: Normal, Sensory/Motor Intact, Alert, Oriented to Person Place, Time, CN Intact II-III, Reflexes Intact, NV Bundle Intact Distally, Normal Gait Psychiatric: Positive: Normal AVPU Assessment: Alert - Yen Coma Scale Coma Scale Total: 15 Diagnostics - Vital Signs Vital Signs Temp Pulse Resp BP Pulse Ox 03/05/17 11:30 84 117/86 96 03/05/17 11:00 87 144/73 95 03/05/17 10:44 90 96 03/05/17 10:31 96 96 03/05/17 10:30 118/106 03/05/17 10:15 96.4 F 79 20 107/85 99 03/05/17 10:12 96.2 F 97 20 107/85 100 - Laboratory Result Diagrams: 03/05/17 11:42 03/05/17 11:42 Lab Statement: Any lab studies that have been ordered have been reviewed, and results considered in the medical decision making process. - CT abd/pelvis w CT Interpretation: No Acute Changes - 1. Hepatosteatosis 2. Post total proctocolectomy with RIGHT lower quadrant ileostomy. Enteric contrast extends to the ileostomy. No CT abnormality of the small bowel loops. 3. Bilateral delayed nephrograms and pyelograms consistent with renal insufficiency. Negative for obstructive uropathy. Correlate with renal function. CT Interpretation Completed By: Radiologist - EKG EKG Cardiac Rate: NL EKG Rhythm: Sinus Rhythm - not currently in a fib, controlled by medication ST Segment: Normal EKG Comparison: No Significant Change Re-Evaluation - Re-Evaluation First Eval Re-Evaluation Time: 13:00 Change: Unchanged Comment: patient's nausea and vomiting has improved however was still feeling weak, lightheaded and having muscle cramps Second Eval Re-Evaluation Time: 15:00 Change: Improved - given 3 bags of normal saline and magnesium along with zofran after obtaining lab results and patient was feeling much better Third Eval Re-Evaluation Time: 16:46 Change: Improved - patient was able to keep food and drinks down without vomiting and feels much better. is no longer feeling weak and lightheaded. urine has also cleared Comment: feeling much better and ready to be d/c once magnesium and last liter of fluids finished Abdominal Pain Fem Course/Dx - Course Course Of Treatment: spoke with Dr Benson about patient. due to lab results, urinalysis and CT scan patient appears to be suffering from dehydration due to vomiting over the past couple of days. patient has a colostomy bag. may have been experiencing a gastroenteritis. 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 given three liters of normal saline, magnesium and zofran with significant improvement. CT scan of adbomen was acutely negative. Rest of electrolytes were in normal range. Patient was able to ambulate and felt much better. was able to keep foods down orally. symptoms had resolved. labs were compared to previous visits and were all in similar ranges, nothing acute. Patient educated on worsening signs and symptoms and improtance of eating and drinking. Has an appointment with both PCP and GI next week. Told to return if symptoms return or worsen. - Diagnoses Differential Diagnosis/HQI/PQRI: Peptic Ulcer Disease, Urinary Tract Infection, Other - gastroenteritis, dehydration, acute nausea and vomiting Provider Diagnoses: Dehydration, moderate, Colostomy in place - Provider Notifications Discussed Care Of Patient With: Dr Benson Discharge - Discharge Plan Condition: Stable Disposition: HOME Prescriptions: Ondansetron TAB* [Zofran 4 MG Tab*] 4 mg PO Q6H PRN #15 tab PRN Reason: Nausea Patient Education Materials: Dehydration (ED) Referrals: Allyn Heredia MD [Primary Care Provider] - Additional Instructions: Drink plenty of fluids and get plenty of rest. It is crucial to avoid dehydration. Try and avoid hot weather. Take zofran as directed as needed for your nausea and vomiting. If symptoms return or worsen, or new symptoms develop please seek medical attention promptly, as this can be life threatening. Follow up with PCP and GI within one week or sooner if symptoms persist.
[2017-03-05 12:03] LABS: Hematocrit 58 % (42-52); Mean Corpuscular HGB Conc 34 g/dl (31-36); Mean Corpuscular Hemoglobin 33 pg (27-31); Mean Corpuscular Volume 96 fL (80-94); Mean Platelet Volume 9 um3 (7.4-10.4); Red Cell Distribution Width 13 % (10.5-15); White Blood Count 16.6 10^3/ul (3.5-10.8)
[2017-03-05 12:09] LABS: Comments Flag Yes
[2017-03-05 12:10] LABS: Hemoglobin 19.5 g/dl (14.0-18.0)
[2017-03-05 12:12] LABS: Albumin 5.4 g/dL (3.2-5.2); BUN/Creatinine Ratio 10.2 (8-20); C Reactive Protein 14.33 mg/L (< 5.00); Calcium 10.4 mg/dL (8.6-10.3); EGFR African American 41.1 (>60); Globulin 3.2 g/dL (2-4); Potassium 4.2 mmol/L (3.5-5.0); Total Bilirubin 1.4 mg/dL (0.2-1.0); Total Protein 8.6 g/dL (6.4-8.9)
[2017-03-05 12:44] LABS: Magnesium 1.7 mg/dL (1.9-2.7)
[2017-03-05] MEDS ORDERED: Iodixanol* (CONTRAST) 320 MG/ML 100 ML SDV IV ONE (13:56)
[2017-03-05 14:06] VITALS: BP 107/70
--- NOTE | 2017-03-05 14:38 | RAD ---
INDICATION: Abdominal cramping, vomiting. Diarrhea. Colostomy secondary to ulcerative colitis. COMPARISON: October 29, 2015 CT. TECHNIQUE: Multidetector CT images were obtained from the lung bases to the ischial tuberosities with 76 mL Visipaque 320 IV and oral contrast. Multiplanar reformation. REPORT: Unremarkable visualized inferior thorax. Mild decreased density of the liver relative to the spleen consistent with hepatosteatosis. No focal hepatic lesions or biliary dilatation. Incompletely distended gallbladder without suspicious finding. Unremarkable pancreas and spleen. Negative for CT abnormality of the upper GI. Post total proctocolectomy with RIGHT lower quadrant ileostomy. Enteric contrast extends to the ileostomy. No CT abnormality of the small bowel loops. Negative for ascites, free air, hernias. Normal adrenal glands. Normal size kidneys demonstrate delayed nephrograms and pyelograms. No focal renal lesions or hydronephrosis. Normal contrast opacification of the normal sized renal veins. Unremarkable ureters. Largely decompressed urinary bladder. Coarse calcification at the prostate. Negative for lymphadenopathy. Mild atherosclerotic plaque. Negative for aortoiliac aneurysm. No suggestion of renal artery stenosis. Annular disc bulges with mild impression on the ventral margin thecal sac at L2-L3 and L4-L5. No suspicious focal osseous lesions evident. IMPRESSION: 1. Hepatosteatosis 2. Post total proctocolectomy with RIGHT lower quadrant ileostomy. Enteric contrast extends to the ileostomy. No CT abnormality of the small bowel loops. 3. Bilateral delayed nephrograms and pyelograms consistent with renal insufficiency. Negative for obstructive uropathy. Correlate with renal function.
[2017-03-05] MEDS ORDERED: Magnesium Sulfate 1 GM IV* 1 GM/100 ML BAG IV ONE (15:20)
[2017-03-05 16:04] LABS: Urine Bilirubin Negative (Negative); Urine Glucose Negative (Negative); Urine Nitrite Negative (Negative)
== END 2017-03-05 17:32 | disposition home or self-care (01) ==
LOC: ED 10:11
DX: E86.0 Dehydration (principal); K76.0 Fatty (change of) liver, not elsewhere classified; I48.91 Unspecified atrial fibrillation; I10 Essential (primary) hypertension; J44.9 Chronic obstructive pulmonary disease, unspecified; Z93.3 Colostomy status; Z88.1 Allergy status to other antibiotic agents; Z87.891 Personal history of nicotine dependence
CPT/HCPCS: 36415; 74177; 80053; 81003; 83605; 83690; 83735; 85025; 86140; 93005; 96361; 96365; 96375; 96376; 99283; J2405; Q9967

== ENCOUNTER 2017-08-28 11:33 | Inpatient (IN) | payer OTHER ==
[2017-08-28] MEDS ORDERED: Diltiazem IV* 5 MG/ML 5 ML VIAL (for loading dose/IV Push) (25 MG) ONE (11:48)
[2017-08-28] MEDS ORDERED: Diltiazem IV* 5 MG/ML 5 ML VIAL (for loading dose/IV Push) (25 MG) IV SLOW PU ONE (11:53)
[2017-08-28] MEDS ORDERED: NS 0.9% 1000 ML* 1,000 ML IV ONE (11:55)
[2017-08-28] MEDS ORDERED: Diltiazem DRIP* 100 MG/100 ML ADDV.BAG IVPB ONE (12:06)
[2017-08-28 12:49] LABS: Hematocrit 46 % (42-52); Hemoglobin 15.8 g/dl (14.0-18.0); Mean Corpuscular HGB Conc 34 g/dl (31-36); Mean Corpuscular Hemoglobin 33 pg (27-31); Mean Corpuscular Volume 98 fL (80-94); Mean Platelet Volume 8 um3 (7.4-10.4); Red Blood Count 4.73 10^6/ul (4.0-5.4); Red Cell Distribution Width 14 % (10.5-15); White Blood Count 10.8 10^3/ul (3.5-10.8)
--- NOTE | 2017-08-28 12:49 | RAD ---
HISTORY: Chest pain, shortness of breath COMPARISONS: July 19, 2017 VIEWS: 1: frontal portable view of the chest at 12:34 PM FINDINGS: LINES AND TUBES: None. CARDIOMEDIASTINAL SILHOUETTE: The cardiomediastinal silhouette is normal for portable technique. PLEURA: The costophrenic angles are sharp. No pleural abnormalities are noted. LUNG PARENCHYMA: The lungs are clear. ABDOMEN: The upper abdomen is clear. There is no subphrenic gas. BONES AND SOFT TISSUES: No bone or soft tissue abnormalities are noted. IMPRESSION: NO ACTIVE CARDIOPULMONARY DISEASE.
[2017-08-28 13:02] LABS: Albumin 3.9 g/dL (3.2-5.2); BUN/Creatinine Ratio 13.1 (8-20); Calcium 8.6 mg/dL (8.6-10.3); EGFR African American 175.9 (>60); EGFR Non-African American 136.7 (>60); Magnesium 1.5 mg/dL (1.9-2.7); Potassium 3.8 mmol/L (3.5-5.0); Total Protein 6.1 g/dL (6.4-8.9)
[2017-08-28 13:03] LABS: Globulin 2.2 g/dL (2-4); Total Bilirubin 0.4 mg/dL (0.2-1.0); Troponin I 0.01 ng/mL (<0.04)
[2017-08-28] MEDS ORDERED: Magnesium Sulf 4 GM/100 ML IV* 4,000 MG/100 ML BAG IVPB ONE (13:27)
[2017-08-28 13:28] LABS: TSH (Thyroid Stimulating Horm) 1.38 mcIU/mL (0.34-5.60)
[2017-08-28] MEDS ORDERED: Digoxin IV* 0.5 MG/2 ML AMP (0.25 MG/ML) IV SLOW PU ONE (13:29)
[2017-08-28] MEDS ORDERED: methylPREDNISolone 125 MG* 2 ML VIAL IV ONE (13:29)
[2017-08-28] MEDS ORDERED: Albuterol/Ipratropium NEB.SOL* Albuterol 2.5 MG/Ipratropium 0.5 MG 3 ML INH ONE (13:30)
--- NOTE | 2017-08-28 13:34 | ED ---
John Rosenberg Gabriel, scribed for Francesca Bryant MD on 08/28/17 at 1155 . HPI Chest Pain - HPI Summary HPI Summary: This patient is a 56 year old M BIBA to [facility] with a chief complaint of CP since MDM SR. The patient rates the pain 7/10 in severity pain and radiating into his back. Patient reports increased SOB, light yellow productive cough, and lightheaded. Patient denies palpitations, n/v, vision changes, ear pain, fever, chills, and ABD pain. Was seen about a month ago and was diagnosed with PNA. Pt says he feels like there is 100lbs on his chest. Pt has a history of AFIB and is not taking his medication. - History of Current Complaint Chief Complaint: EDRespiratoryDistress Hx Obtained From: Patient Onset/Duration: Still Present Timing: Constant Pain Intensity: 7 Pain Scale Used: 0-10 Numeric Chest Pain Radiates: Yes Chest Pain Radiates To:: Back Character: Other: - weight on chest Associated Signs and Symptoms: Positive: Negative - palpitations, n/v, vision changes, ear pain, fever, chills, and ABD pain, Other: - increased SOB, light yellow productive cough, and lightheaded - Additional Pertinent History Primary Care Physician: [id number] - Allergy/Home Medications Allergies/Adverse Reactions: Allergies Allergy/AdvReac Type Severity Reaction Status Date / Time Ciprofloxacin Allergy Itching Verified 07/18/17 06:38 Home Medications: Home Medications amLODIPine TAB* [Norvasc 5 mg TAB*] 5 mg PO DAILY 08/28/17 [History Confirmed ] PMH/Surg Hx/FS Hx/Imm Hx Previously Healthy: No Endocrine/Hematology History: Denies: Hx Anticoagulant Therapy, Hx Diabetes, Hx Systemic Lupus Erythematosus, Hx Thyroid Disease Cardiovascular History: Reports: Hx Atrial Fibrillation - no anticoagulants used currently, Hx Hypertension Denies: Hx Congestive Heart Failure, Hx Deep Vein Thrombosis, Hx Myocardial Infarction, Hx Pacemaker/ICD Comment Only: Other Cardiovascular Problems/Disorders - A FIB Respiratory History: Reports: Hx Asthma, Hx Chronic Obstructive Pulmonary Disease (COPD), Other Respiratory Problems/Disorders - PNA Denies: Hx Lung Cancer, Hx Pneumonia, Hx Pulmonary Embolism GI History: Reports: Hx Gastrointestinal Bleed, Hx Obstructive Bowel, Hx Ileostomy - colostomy 2012, Other GI Disorders - colostomy Denies: Hx Gall Bladder Disease, Hx Ulcer, Hx Urosepsis History: Denies: Hx Kidney Stones, Hx Renal Disease Musculoskeletal History: Reports: Hx Orthopedic Injury - surgeries in both knees Denies: Hx Arthritis, Hx Rheumatoid Arthritis, Hx Osteoporosis Sensory History: Reports: Hx Contacts or Glasses Denies: Hx Hearing Aid Opthamlomology History: Reports: Hx Contacts or Glasses Neurological History: Denies: Hx Dementia, Hx Migraine, Hx Seizures, Hx Transient Ischemic Attacks (TIA) Psychiatric History: Denies: Hx Anxiety, Hx Depression, Hx Schizophrenia, Hx Bipolar Disorder - Cancer History Hx Chemotherapy: No - Surgical History Surgery Procedure, Year, and Place: COLECTOMY FOR ULCERATIVE COLITIS AT [facility] - has ostomy now 12/2012; bilat knees for cartilage. Tonsils Hx Anesthesia Reactions: No - Immunization History Date of Influenza Vaccine: 06/07/16 Infectious Disease History: No Infectious Disease History: Reports: Hx Hepatitis - hep c Denies: Hx Clostridium Difficile, Hx Human Immunodeficiency Virus (HIV), Hx of Known/Suspected MRSA, Hx Shingles, Hx Tuberculosis, Hx Known/Suspected VRE, Hx Known/Suspected VRSA, History Other Infectious Disease, Traveled Outside the [place] in Last 30 Days - Family History Known Family History: Positive: Unknown - Patient is adopted, family history is unknown., Hypertension, Respiratory Disease, Other - adopted - Social History Alcohol Use: Weekly Alcohol Amount: 2 Substance Use Type: Reports: None Smoking Status (MU): Former Smoker Type: Cigarettes Amount Used/How Often: 1/2 ppd Length of Time of Smoking/Using Tobacco: 40 years Have You Smoked in the Last Year: Yes Review of Systems Negative: Fever, Chills Eyes: Negative - vision changes Negative: Ear Ache Positive: Chest Pain. Negative: Palpitations Positive: Shortness Of Breath, Cough - productive Negative: Abdominal Pain, Vomiting, Nausea Neurological: Other - lightheaded All Other Systems Reviewed And Are Negative: No Physical Exam - Summary Physical Exam Summary: Appearance: Alert, conversive, nontoxic appearing, In mild distress Skin: Warm, dry, no mottling, no rashes, no contusions HEENT: EOMI, PERRL, dry mucous membranes Neck: No masses on the neck, supple Respiratory: Clear to auscultation, breath sounds present, no rales, no rhonchi. Prolonged expiratory phase with wheezing. Cardiovascular: significantly tachycardic, pulses are symmetrical in both lower and upper extremities Abdomen: Soft, non-tender Bowel Sounds: Present Musculoskeletal: No CVA tenderness, no obvious deformity, moving all extremities in a grossly normal manner Neurological: A&Ox3, CN II-XII Intact, moving all extremities symmetrically Psychiatric: Normal affect and mood Triage Information Reviewed: Yes Vital Signs On Initial Exam: Initial Vitals BP 136/93 08/28/17 11:42 Vital Signs Reviewed: Yes Diagnostics - Vital Signs Vital Signs Temp Pulse Resp BP Pulse Ox 08/28/17 11:43 98.1 F 125 23 136/93 99 08/28/17 11:42 136/93 - Laboratory Lab Results: Lab Results 08/28/17 08/28/17 08/28/17 Range/Units 12:29 12:29 12:29 WBC 10.8 (3.5-10.8) 10^3/ul RBC 4.73 (4.0-5.4) 10^6/ul Hgb 15.8 (14.0-18.0) g/dl Hct 46 (42-52) % MCV 98 H (80-94) fL MCH 33 H (27-31) pg MCHC 34 (31-36) g/dl RDW 14 (10.5-15) % Plt Count 180 (150-450) 10^3/ul MPV 8 (7.4-10.4) um3 Neut % (Auto) 81.5 (38-83) % Lymph % (Auto) 6.7 L (25-47) % [place] % (Auto) 10.7 H (1-9) % Eos % (Auto) 0.6 (0-6) % Baso % (Auto) 0.5 (0-2) % Absolute Neuts (auto) 8.8 H (1.5-7.7) 10^3/ul Absolute Lymphs (auto) 0.7 L (1.0-4.8) 10^3/ul Absolute Monos (auto) 1.2 H (0-0.8) 10^3/ul Absolute Eos (auto) 0.1 (0-0.6) 10^3/ul Absolute Basos (auto) 0 (0-0.2) 10^3/ul Absolute Nucleated RBC 0.01 10^3/ul Nucleated RBC % 0.1 Sodium 141 (133-145) mmol/L Potassium 3.8 (3.5-5.0) mmol/L Chloride 107 (101-111) mmol/L Carbon Dioxide 27 (22-32) mmol/L Anion Gap 7 (2-11) mmol/L BUN 8 (6-24) mg/dL Creatinine 0.61 L (0.67-1.17) mg/dL Est GFR ( Amer) 175.9 (>60) Est GFR (Non-Af Amer) 136.7 (>60) BUN/Creatinine Ratio 13.1 (8-20) Glucose 93 (70-100) mg/dL Calcium 8.6 (8.6-10.3) mg/dL Magnesium 1.5 L (1.9-2.7) mg/dL Total Bilirubin 0.40 (0.2-1.0) mg/dL AST 22 (13-39) U/L ALT 15 (7-52) U/L Alkaline Phosphatase 87 (34-104) U/L Troponin I 0.01 (<0.04) ng/mL B-Natriuretic Peptide 89 ( - 100) pg/mL Total Protein 6.1 L (6.4-8.9) g/dL Albumin 3.9 (3.2-5.2) g/dL Globulin 2.2 (2-4) g/dL Albumin/Globulin Ratio 1.8 (1-3) TSH 1.38 (0.34-5.60) mcIU/mL Result Diagrams: 08/28/17 12:29 08/28/17 12:29 Lab Statement: Any lab studies that have been ordered have been reviewed, and results considered in the medical decision making process. - Radiology CXR Radiology Interpretation Completed By: Radiologist - NO ACTIVE CARDIOPULMONARY DISEASE. ED physician has reviewed this radiology report and agrees. - EKG 11:58 Cardiac Rate: NL EKG Rhythm: Atrial Fibrillation - at 159 BPM EKG Interpretation: normal QRS , slightly prolonged QTC, slight ST depression in lateral leads, Re-Evaluation - Re-Evaluation First Eval Re-Evaluation Time: 13:10 Change: Unchanged - Patient is still tachycardic at 160 BPM. Cardiology is being contacted. Chest Pain Course/Dx - Course Assessment/Plan: This patient is a 56 year old M BIBA to [facility] with a chief complaint of CP since MDM SR. The patient rates the pain 7/10 in severity pain and radiating into his back. An EKG reveals normal QRS , slightly prolonged QTC, slight ST depression in lateral leads, and No acute RI. CXR reveals, per radiologist, NO ACTIVE CARDIOPULMONARY DISEASE. Test results with no significant abnormalities except for slightly low magnesium. In the ED course the patient was given solumedrol for COPD exacerbation. Magnesium sulfate for low Mg and a dual neb. We discussed patient care with [employer] working for Dr. Mckeon and they agreed to admit the patient. Patient will be admitted with follow up from Dr. Mckeon. The patient is agreeable with this plan. - Diagnoses Provider Diagnoses: Atrial fibrillation, COPD exacerbation - Critical Care Time Critical Care Time: 30-74 min - spoke to the airport sales agent, Dr. Spencer. He recommends IV digoxin and beta blockers if needed. We reviewed labs. I spoke to the hospitalist and coordinated care. Pt was given iv cardizem push followed by cardizem drip. Multiple re-evaluations done. Discharge - Discharge Plan Condition: Guarded Disposition: ADMITTED TO [facility] Consult Consult: 13:23 Discussed patient care with [employer] working with Dr. Mckeon , hospitalist. They have agreed to admit the patient. The documentation as recorded by the John rangel Gabriel accurately reflects the service I personally performed and the decisions made by me, Francesca Bryant MD.
[2017-08-28] MEDS ORDERED: Albuterol 2.5 MG/3 ML NEB.SOL* (0.083%) INH PRN (13:59)
[2017-08-28] MEDS ORDERED: Ondansetron INJ* 2 MG/ML VIAL IV PRN (13:59)
[2017-08-28] MEDS ORDERED: Potassium Chlor TAB* 20 MEQ TAB.ER PO ONE (13:59)
[2017-08-28] MEDS ORDERED: Metoprolol Tartrate IV* 1 MG/ML 5 ML VIAL IV ONE (13:59)
[2017-08-28] MEDS ORDERED: Acetaminophen TAB* 325 MG PO PRN (13:59)
[2017-08-28] MEDS ORDERED: Metoprolol Tartrate IV* 1 MG/ML 5 ML VIAL ONE (14:00)
[2017-08-28] MEDS ORDERED: Diltiazem DRIP* 100 MG/100 ML ADDV.BAG IVPB SCH (14:00)
[2017-08-28] MEDS ORDERED: Aspirin Low Dose CHEW TAB* 81 MG PO ONE (14:09)
[2017-08-28] MEDS ORDERED: Iohexol 350* (CONTRAST) 500 ML MDV IV ONE (14:21)
[2017-08-28] MEDS ORDERED: Perflutren Lipid Microsphere* 3 ML VIAL ONE (14:40)
--- NOTE | 2017-08-28 14:56 | RAD ---
Indication: Chest pain, shortness of breath. Contrast: Administered 67.0 ml of VISAPAQUE 320 mg/ml CTA of the chest was performed after IV contrast administration. Coronal and sagittal reconstructed images were obtained. The pulmonary arterial tree is well opacified. There are no filling defects present to suggest pulmonary embolus. The trachea and major bronchi appear patent. The lung key demonstrate emphysematous changes. No pleural fluid is identified. No alveolar consolidation is IMPRESSION: Emphysematous changes without evidence of active cardiopulmonary disease.
--- NOTE | 2017-08-28 15:33 | ECHO ---
Patient: REMA MARVIN [facility] Rec#: [id number] : 1960 Date: 08/28/2017 Age: 56y Height: 167.64 cm / 66.0 in Weight: 61.69 kg / 136.0 lbs Sex: M BSA: 1.7 Room#: [facility] Admit Date#: 08/28/2017 Type: Inpatient Referring: Mark Gutierrez NP Reading: Xena Spencer MD Clinical Auditor: Felicitas Marvin RDCS CC: Allyn Heredia MD Transthoracic Echocardiogram Indication: CP BP: 109/80 HR: 112 Rhythm: A-Fib Findings History: A-fib with medication noncompliance,HTN,asthma,COPD,prior GI bleed, former smoker. Technical Comments: The study is technically limited due to the patient's smoking history. 4 ml Definity used to enhance images. Left Ventricle: The left ventricular chamber size is normal. Unable to estimate left ventricular ejection fraction. baseline atrial fib with RVR. can not exclude borderline mildy reduced lv EF. The assessment of diastolic function is non-diagnostic. Left Atrium: The left atrium is slightly dilated. Right Ventricle: The right ventricular cavity size is normal. The right ventricular global systolic function is normal. Right Atrium: The right atrial cavity size is normal. Aortic Valve: The aortic valve structure is not well visualized. There is no evidence of aortic regurgitation. There is no evidence of aortic stenosis. Mitral Valve: The mitral valve leaflets are moderately thickened. There is mild mitral regurgitation. There is no evidence of mitral stenosis. Tricuspid Valve: The tricuspid valve leaflets are normal. There is a physiologic tricuspid regurgitation. Unable to estimate the right ventricular systolic pressure. There is evidence that pulmonary hypertension may be underestimated. Pulmonic Valve: The pulmonic valve structure is not well visualized. Pericardium: The pericardium appears normal. Aorta: The ascending aorta is not well visualized. The aortic arch is not well visualized. There is no dilation of the aortic root. Pulmonary Artery: The main pulmonary artery is not well visualized. Venous: The venous system is not well visualized. Contrast: Definity was used to optimize study. Intravenous contrast was used to enhance endocardial border definition. Summary: There are changes noted when compared to the previous study done on 10/26/2015, now LV EF difficult to estimate from 40-45% then. Conclusions The left ventricular chamber size is normal. Unable to estimate left ventricular ejection fraction. baseline atrial fib with RVR. can not exclude borderline mildy reduced lv EF. The left atrium is slightly dilated. There is mild mitral regurgitation. There is a physiologic tricuspid regurgitation. Unable to estimate the right ventricular systolic pressure. Measurements Name Value Normal Range RVIDd (AP) 2D 2.1 cm (0.9 - 2.6) RVDdMajor (2D) 2.4 cm (2.2 - 4.4) RAd ISD 4CH 3.5 cm (3.4 - 4.9) RA (A4C)W 2.8 cm (2.9 - 4.6) IVSd (2D) 0.8 cm (0.6 - 1) LVPWd (2D) 1.1 cm (0.6 - 1) LVIDd (2D) 4.4 cm (3.6 - 5.4) LVIDs (2D) 2.9 cm - LV FS (2D) 34 % (25 - 45) Aortic Annulus 1.9 cm (1.4 - 2.6) Ao root diameter (2D) 2.9 cm (2.1 - 3.5) LA dimension (AP) 2D 3.9 cm (2.3 - 3.8) LAd ISD 4CH 3.7 cm (2.9 - 5.3) LA ISD 4CH W 4.2 cm (2.5 - 4.5) Name Value Normal Range MV E-wave Vmax 0.9 m/sec - MV deceleration time 202 msec - LV septal e' Vmax 0.09 m/sec - LV lateral e' Vmax 0.12 m/sec - LV E:e' septal ratio 10 ratio - LV E:e' lateral ratio 7.5 ratio - Name Value Normal Range AV Vmax 0.7 m/sec - AV VTI 14.3 cm - AV peak gradient 2.13 mmHg - AV mean gradient 0.89 mmHg - LVOT Vmax 0.7 m/sec - LVOT VTI 10.8 cm - LVOT peak gradient 1.72 mmHg - LVOT mean gradient 0.8 mmHg -
[2017-08-28] MEDS: predniSONE TAB* 20 MG PO SCH (16:09)
[2017-08-28] MEDS: Metoprolol Tartrate TAB* 100 MG TAB PO SCH (16:29)
--- NOTE | 2017-08-28 17:15 | HP ---
CC: Dr. Heredia * HISTORY AND PHYSICAL: DATE OF ADMISSION: 08/28/17 PRIMARY CARE PHYSICIAN: Dr. Heredia. ATTENDING PHYSICIAN WHILE IN THE HOSPITAL: Preethi Mckeon MD * (report dictated by Mark Gutierrez NP). CHIEF COMPLAINT: 1. Chest pain. 2. Shortness of breath. 3. Fast heart rate. HISTORY OF PRESENT ILLNESS: Mr. Yen is a 56-year-old male patient. He has a history of COPD, AFib, has a history of ulcerative colitis and hepatitis C. 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 He is in a dispute with a former employee about getting paid and he went there today and as he was walking up the stairs, he developed a sudden onset of chest discomfort, shortness of breath. He walked into the office and the patent attorney's office staff was very concerned and said "you know, you should go to the nearest ER to be evaluated" so they called 911 and the patient came into the hospital. He states he is having chest pain now, it feels like he has 100 pounds on his chest. He says it goes over into his right shoulder. He says he feels short of breath, but it is at his baseline. He has not been having any palpitations. He has not felt like he is going to faint or pass out. He denies having any abdominal pain. No nausea. No vomiting. He says his ileostomy output has been at his baseline, has not been any worse or less. Denied any black ostomy output. He says he has not been taking his cardiac meds in the last month. He has not been able to afford them. He was concerned today because of the shortness of breath and chest discomfort, he came into the ED, there has been reports of a cough, but no fevers or chills. He was concerned, he came in, was evaluated in the ED, was found that he appeared to be in AFib with RVR and there was concern that he may have a COPD exacerbation, so we were asked to evaluate for admission. PAST MEDICAL HISTORY: Significant for: 1. COPD. 2. AFib. 3. Ulcerative colitis. 4. Hepatitis C. PAST SURGICAL HISTORY: 1. He has had a colectomy. 2. Bilateral knee arthroscopy. 3. Tonsillectomy. HOME MEDICATIONS: What he is supposed to be taking include: 1. Amlodipine 5 mg a day. 2. Serevent 1 puff inhaled b.i.d. 3. Toprol-XL 100 mg daily. 4. Flovent 1 puff inhaled b.i.d. 5. Ventolin 2 puffs inhaled every 6 hours as needed. 6. Ventolin 2.5 mg inhaled every 4 hours as needed. ALLERGIES TO MEDICATIONS: Include CIPROFLOXACIN. FAMILY HISTORY: Unknown as he was adopted. SOCIAL HISTORY: He is a former smoker. He was a pack a day for about 40 years. He does drink 1 to 2 beers a day. He has not appointed a surrogate decision maker at this point. REVIEW OF SYSTEMS: There is no documented fever. He denied having any significant weight change. There was no double vision. There is no ear discharge. He denies any rhinorrhea. No sore throat. No thyroid enlargement. There was chest pressure per my HPI described as a tightness pressure going into the right shoulder, sudden onset today at the patent attorney's office. Denies having any abdominal pain. No nausea. No vomiting. No dysuria. No frequency. No seizure. No loss of consciousness. No pruritus and no skin ulcerations. Review of 14 systems completed, all others negative. PHYSICAL EXAMINATION GENERAL: At this time, Mr. Yen is a 56-year-old male patient. He is chronically ill appearing. He is sitting in the ER stretcher. He does not appear to be in any acute distress. VITAL SIGNS: Blood pressure 109/80, pulse 160, respirations 30, O2 sat 95%, temperature 98.1. HEENT: Head atraumatic. Eyes: EOMs are intact. Sclerae are anicteric. Not pale. Throat: Oral mucosa appears to be moist. No oropharyngeal erythema. NECK: Supple. LUNGS: He had wheezing throughout. He had equal diaphragmatic expansion. HEART: Sounds S1, S2. Irregularly irregular rate. No murmurs, rubs, or gallops. ABDOMEN: Soft, flat, nontender. He does have an ostomy bag which is in situ. Does not appear to have any dusky discoloration. EXTREMITIES: Pulses are 2+ throughout. He had 5/5 strength. No peripheral edema. NEUROLOGIC: He is awake, alert, oriented x3. No gross focal deficits. SKIN: Intact. DIAGNOSTIC STUDIES/LAB DATA: WBC of 10.8, RBC of 4.73, hemoglobin 15.8, hematocrit 46, platelet count of 180,000. His sodium was 141, potassium is 3.8 , chloride of 107, bicarb 27, BUN 0.61, glucose 93, calcium 8.6, mag 1.5, total bili 0.4, AST 22, ALT 15, alk phos 87. Troponin 0.01. BNP of 89. TSH 1.38. He had a chest x-ray obtained today, impression: No active cardiopulmonary disease. He had an EKG obtained today, showed atrial fibrillation at a rate of 159. He had diffuse ST depression, but no ST elevations were noted. It was reviewed with previous EKG, he was again noted to be in AFib previously, but the rate at this point is much faster. Last heart rate was 114 on the last EKG. Old medical records were reviewed. ASSESSMENT AND PLAN: Mr. Yen is a 56-year-old male patient coming into the ED today with complaints of chest discomfort, sudden onset; worsening shortness of breath and now found to be in atrial fibrillation with rapid ventricular response. He will be admitted under observation status for: 1. Chronic obstructive pulmonary disease exacerbation. At this point, I will put him on steroids, inhaled nebs every 4 hours, p.r.n. albuterol, azithromycin for the anti-inflammatory properties and will continue to follow. 2. Atrial fibrillation with rapid ventricular rate. I am going to give him some IV Lopressor now as he may be tachycardic as he is withdrawing from this. Also, he is on a diltiazem drip. We will get an echo. We will cycle his troponins. We will replace the mag, replace the potassium and will follow him closely. If the metoprolol and the diltiazem do not work, I will give him some digoxin. I am holding on anticoagulation. His LAY score is low. He gets a point for hypertension. In addition to this, I do not think the cardioversion is in this patient, because he clearly has not taken his meds in a month. If we cardiovert him, he is going to need to be consistently taking anticoagulation which is questionable and I do not think that is a good choice at this point. In addition to this, we have a questionable GI history. He has not been on anticoagulation since October. He has been supposed to have had a GI workup in forms of EGD to see if there was any bleeding as he has had intermittent dark output from his ostomy. I am going to get a stool occult from his ostomy output to see if there is any blood there. I do think that because of these reasons, we should hold off on anticoagulation and strive for rate control and minimally put him on aspirin and I discussed this with Dr. Spencer and he was in agreement. Should we have trouble with rate control, then I think a formal cardiology consult is warranted. 3. Chest pain. Again, I am going to cycle his troponins. It could just be some demand ischemia from the fast heart rate, but it was sudden in onset and he is more short of breath, so I think a CTA is appropriate to rule out any pulmonary disease and to rule out any pulmonary embolism. We will continue to follow. 4. Hepatitis C. He can follow with his primary. 5. Ulcerative colitis. Follow with his primary. 6. DVT prophylaxis. I am going to go ahead and put him on just heparin subcu. 7. Code status. Full code. 8. Fluids, electrolytes, nutrition. Heart-healthy diet. TIME SPENT: Time spent on the admission was 60 minutes; greater than half the time was spent [id number] with the patient obtaining my history and physical, other half of the time spent going over the plan of care with the patient and implementing plan of care. I did discuss plan of care with my attending, Dr. Mckeon, she is in agreement. MARK GUTIERREZ, CONRAD [id number]/CPS #: [id number] ELIUD
[2017-08-28] MEDS: Albuterol/Ipratropium NEB.SOL* Albuterol 2.5 MG/Ipratropium 0.5 MG 3 ML INH SCH ×3 (17:41→23:41)
[2017-08-28] MEDS: Azithromycin IV(*) 500 MG in NS 0.9% 250 ML* 250 ML IVPB SCH (18:13)
[2017-08-28] MEDS: Mometasone/Formoter 200/5 MDI INH SCH (19:30)
[2017-08-28] MEDS ORDERED: Metoprolol Tartrate TAB* 100 MG TAB PO SCH (21:00)
[2017-08-28] MEDS: Heparin VIAL(*) 5000 UNITS/ML VIAL (FIVE THOUSAND) SUBCUT SCH (21:09)
--- NOTE | 2017-08-28 21:15 | CONS ---
CC: Hospitalist Service; Dr. Kennedy; Dr. Spencer CARDIOLOGY CONSULTATION REPORT: DATE OF CONSULT: 08/28/17 HISTORY OF PRESENT ILLNESS: I was asked by hospitalist service to see this 56-year- old male patient , who presented to the hospital with some atypical symptoms of some shoulder pain, chest pain, and ta chycardia. He does have known history of chronic atrial fibrillation. He has been maintained on bet a reno as an outpatient. He stopped it about a month ago according to him because he "didn't have money." He used to smoke, he quit. He drinks moderately. He does have history of ulcerative colit is and he had a history of surgery in the past in 2012. He does have ileostomy in place. There were some concerns of GI bleed, he was supposed to have an upper endoscopy in December, but that was never d one as the patient did not have arrangements to go home after it will be done. He gives no nausea, n o vomiting, no hematochezia, no skin rash, no shortness of breath, no swelling in the lower extremiti es, no dizziness, no syncope. In the emergency room, he was found to be in rapid AFib. He was start ed on Cardizem IV and did receive Lopressor IV 1 dose 5 mg; his heart rate is much better. He feels much better now. His review of all other systems essentially is negative. PAST MEDICAL HISTORY: Includes history of atrial fibrillation, history of GI bleed, history of ulcer ative colitis. PAST SURGICAL HISTORY: History of ulcerative colitis surgery in the past, ileostomy, and history of the bilateral knee scopes. MEDICATIONS: His medications as an outpatient used to be metoprolol, he used it 100 mg once a day an d but he did not take it a month ago. ALLERGIES: Allergic to CIPRO. FAMILY HISTORY: Unknown. SOCIAL HISTORY: He used to smoke, he quit. Drinking, 2 drinks daily. No history of illicit drug us e. He lives alone. He is adopted. REVIEW OF SYSTEMS: Review of all other systems essentially is negative. PHYSICAL EXAM: He is awake, alert, and oriented. He is not in acute distress. He is chest pain jenn e. His vitals, blood pressure 120/70; pulse 90, is in AFib; he is afebrile. Head and Neck Exam: No rmocephalic and atraumatic head. Ears, Nose, and Throat: Essentially benign. Neck: Supple. JVP i s not elevated. No carotid bruits. No masses in the neck are appreciated. Chest: Clear to auscult ation. No rales, no wheezes. Heart: Tachycardic, irregularly irregular. S1, S2. No added sounds. No gallops. Abdomen: Benign, soft, positive bowel sounds. Extremities: No edema, no cyanosis, no clubbing. Skin exam is normal. Psych: Normal affect and mood. 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 DIAGNOSTIC STUDIES/LAB DATA: White blood cell 10.8, hemoglobin 15.8, hematocrit 46, and platelets 18 0. Chemistry: Sodium 141, potassium 3.8, chloride 107, total CO2 27, BUN 8, creatinine 0.61, magnes ium 1.5. TSH 1.38. His echo done today, he was in rapid AFib. It was difficult to make an estimate of his EF, probably could be borderline mildly reduced, mild mitral insufficiency appreciated, physiologic TR. His CTA of the chest done today showed emphysematous changes. No evidence of acute cardiopulmonary d isease. No pulmonary embolism. His EKG from today, rapid AFib, heart rate 160, nonspecific ST-T changes. IMPRESSION: The patient is 56-year-old male patient with: 1. Rapid atrial fibrillation, symptomatic, with known history of a chronic atrial fibrillation. 2. Hypokalemia and hypomagnesemia. 3. Moderate alcohol drinking. 4. History of tobacco consumption. 5. No pulmonary embolism by his CT scan today of the chest. 6. Mild mitral insufficiency. 7. Difficult to make an estimate of his left ventricular systolic function, could be borderline mild ly reduced. 8. History of ulcerative colitis, gastrointestinal bleed. PLAN: The patient is currently in the intensive care unit. He is maintained on IV Cardizem, he is r esponding. I would reinitiate his beta reno, especially in light of possibility of mildly reduced left ventricular systolic function. I agree with replenishing aggressively his potassium and magnes ium. He is to stay well- hydrated. Regarding CHADS-VASc scoring system, he is probably at most 1. He had no history of congestive heart failure, no diabetes. No history of CVA or peripheral arterial disease according to him. He is to avoid significant alcohol, caffeinated drinks, and stimulants. He is to stay well hydrated. He is to keep potassium more than 4, magnesium more than 2. Any furthe r recommendations will be pending his clinical outcome. I answered all of his concerns and questions up to his satisfaction. We will follow him closely, we will make further recommendations accordingl y. [id number]/[facility] #: [id number]
[2017-08-29] MEDS: Heparin VIAL(*) 5000 UNITS/ML VIAL (FIVE THOUSAND) SUBCUT SCH ×3 (05:51→20:28)
[2017-08-29 06:12] LABS: Hematocrit 45 % (42-52); Hemoglobin 14.9 g/dl (14.0-18.0); Mean Corpuscular HGB Conc 33 g/dl (31-36); Mean Corpuscular Hemoglobin 33 pg (27-31); Mean Corpuscular Volume 100 fL (80-94); Mean Platelet Volume 8 um3 (7.4-10.4); Red Cell Distribution Width 14 % (10.5-15); White Blood Count 15.6 10^3/ul (3.5-10.8)
[2017-08-29] MEDS: Albuterol/Ipratropium NEB.SOL* Albuterol 2.5 MG/Ipratropium 0.5 MG 3 ML INH SCH ×4 (06:23→15:15)
[2017-08-29 06:24] LABS: BUN/Creatinine Ratio 16.9 (8-20); Calcium 8.7 mg/dL (8.6-10.3); EGFR African American 123.3 (>60); EGFR Non-African American 95.8 (>60); Potassium 4.6 mmol/L (3.5-5.0)
[2017-08-29] MEDS: Mometasone/Formoter 200/5 MDI INH SCH (07:30)
[2017-08-29] MEDS ORDERED: Metoprolol Succinate XL TAB* 100 MG PO SCH (09:00)
[2017-08-29] MEDS: predniSONE TAB* 20 MG PO SCH (09:41)
[2017-08-29] MEDS: Metoprolol Tartrate TAB* 100 MG TAB PO SCH ×2 (09:41→20:25)
[2017-08-29] MEDS: Aspirin EC Low Dose* 81 MG TAB.EC PO SCH (09:41)
--- NOTE | 2017-08-29 13:37 | PN ---
Subjective Date of Service: 08/29/17 Interval History: Mr. Yen states that he is feeling better today. His breathing is much improved though he continues to cough and feel some dyspnea with exertion. His chest pain has resolved. He denies nausea or abdominal pain. Objective Active Medications: Acetaminophen (Tylenol Tab*) 650 mg PO Q4H PRN Albuterol (Ventolin 2.5 Mg/3 Ml Neb.Leona*) 2.5 mg INH Q2H PRN Albuterol/Ipratropium (Duoneb (Albuterol 2.5 Mg/Ipratropium 0.5 Mg)) 1 neb INH [id number] AWAKE [facility] Aspirin (Aspirin Ec Low Dose*) 81 mg PO DAILY JUSTIN Heparin Sodium (Porcine) (Heparin Vial(*)) 5,000 units SUBCUT Q8HR JUSTIN Azithromycin 500 mg/ Sodium (Chloride) 250 mls @ 250 mls/hr IVPB Q24H [facility] Metoprolol Tartrate (Lopressor Tab*) 100 mg PO BID JUSTIN Mometasone Furoate/Formoterol Fumar (Dulera 200/5 Mdi*) 2 puff INH BID JUSTIN Ondansetron HCl (Zofran Inj*) 4 mg IV Q6H PRN Prednisone (Deltasone Tab*) 60 mg PO DAILY [facility] Vital Signs: Temp Pulse Resp BP Pulse Ox 97.5 F 58 20 123/76 97 08/29/17 11:54 08/29/17 11:54 08/29/17 11:54 08/29/17 11:54 08/29/17 11:54 Oxygen Devices in Use Now: None Appearance: Male sitting up on edge of bed in NAD Eyes: No Scleral Icterus Ears/Nose/Mouth/Throat: Mucous Membranes Moist Neck: Trachea Midline Respiratory: Symmetrical Chest Expansion and Respiratory Effort, - - Minimal wheezing bilaterally Cardiovascular: NL Sounds; No Murmurs; No JVD, No Edema Abdominal: NL Sounds; No Tenderness; No Distention Lymphatic: No Cervical Adenopathy Extremities: No Edema Skin: No Rash or Ulcers Neurological: Alert and Oriented x 3, NL Muscle Strength and Tone Nutrition: Taking PO's Result Diagrams: 08/29/17 05:48 08/29/17 05:48 Additional Lab and Data: Vital Signs: Temp Pulse Resp BP Pulse Ox 97.5 F 58 20 123/76 97 08/29/17 11:54 12/09/17 11:54 08/29/17 11:54 08/29/17 11:54 08/29/17 11:54 Microbiology and Other Data: Microbiology 08/28/17 17:00 Nasal Screen MRSA (PCR)(TINA) - Final Nasal Mrsa Negative Assess/Plan/Problems-Billing Assessment: Mr. Yen is a 56 yo male with a PMH of COPD, afib who was admitted on with a COPD exacerbation and afib with RVR. - Patient Problems (1) COPD exacerbation Comment: - Improving slowly. - CTA chest negative. - Continue prednisone, azithromycin. - Continue albuterol, dulera. (2) Atrial fibrillation Comment: - RVR resolved. - Appreciate consultation from Dr. Spencer. - Echo quality poor but no significant changes noted. - Mag and K repleted - Continue metoprolol. - Cannot be anticoagulated due to history of GI bleed. (3) Daily consumption of alcohol Comment: - Alcohol abstinence reinforced. (4) Hypertension Comment: - SBP 120-130. - Continue metoprolol. (5) DVT prophylaxis Comment: - sq heparin. (6) Full code status Status and Disposition: Inpatient. Anticipate discharge to home when medically stable.
[2017-08-29] MEDS: Azithromycin IV(*) 500 MG in NS 0.9% 250 ML* 250 ML IVPB SCH (15:36)
[2017-08-29] MEDS ORDERED: Benzocaine/Menthol LOZ* 1 LOZENGE PO PRN (20:47)
[2017-08-30] MEDS: Heparin VIAL(*) 5000 UNITS/ML VIAL (FIVE THOUSAND) SUBCUT SCH (05:29)
[2017-08-30] MEDS: Mometasone/Formoter 200/5 MDI INH SCH ×2 (07:10→10:20)
[2017-08-30] MEDS: predniSONE TAB* 20 MG PO SCH (07:33)
[2017-08-30] MEDS: Metoprolol Tartrate TAB* 100 MG TAB PO SCH (07:33)
[2017-08-30] MEDS: Aspirin EC Low Dose* 81 MG TAB.EC PO SCH (07:33)
--- NOTE | 2017-08-30 11:07 | PN ---
Subjective Date of Service: 08/30/17 Interval History: Mr. Yen states that he is still feeling well and feels safe with discharge. He is concerned about an upcoming possible eviction. I am providing him with information about the [facility] in [place]. Objective Active Medications: Acetaminophen (Tylenol Tab*) 650 mg PO Q4H PRN Albuterol (Ventolin 2.5 Mg/3 Ml Neb.Leona*) 2.5 mg INH Q2H PRN Aspirin (Aspirin Ec Low Dose*) 81 mg PO DAILY JUSTIN Heparin Sodium (Porcine) (Heparin Vial(*)) 5,000 units SUBCUT Q8HR JUSTIN Azithromycin 500 mg/ Sodium (Chloride) 250 mls @ 250 mls/hr IVPB Q24H JUSTIN Metoprolol Tartrate (Lopressor Tab*) 100 mg PO BID JUSTIN Mometasone Furoate/Formoterol Fumar (Dulera 200/5 Mdi*) 2 puff INH BID JUSTIN Ondansetron HCl (Zofran Inj*) 4 mg IV Q6H PRN Prednisone (Deltasone Tab*) 60 mg PO DAILY JUSTIN Throat Lozenges (Chloraseptic Yadi*) 1 yadi PO Q6H PRN Vital Signs - 8 hr 08/30/17 08/30/17 08/30/17 04:22 07:15 07:18 Temperature 97.7 F 97.6 F Pulse Rate 72 68 Respiratory 16 16 16 Rate Blood Pressure 128/91 128/85 (mmHg) O2 Sat by Pulse 97 96 Oximetry Oxygen Devices in Use Now: None Appearance: Male sitting up in bed in NAD Eyes: No Scleral Icterus Ears/Nose/Mouth/Throat: Mucous Membranes Moist Neck: NL Appearance and Movements; NL JVP, Trachea Midline Respiratory: Symmetrical Chest Expansion and Respiratory Effort, Clear to Auscultation Cardiovascular: NL Sounds; No Murmurs; No JVD, No Edema Abdominal: NL Sounds; No Tenderness; No Distention Lymphatic: No Cervical Adenopathy Extremities: No Edema Skin: No Rash or Ulcers Neurological: Alert and Oriented x 3, NL Muscle Strength and Tone Nutrition: Taking PO's Result Diagrams: 08/29/17 05:48 08/29/17 05:48 Additional Lab and Data: Vital Signs: Temp Pulse Resp BP Pulse Ox 97.5 F 58 20 123/76 97 08/29/17 11:54 08/29/17 11:54 12/09/17 11:54 08/29/17 11:54 08/29/17 11:54 Microbiology and Other Data: Microbiology 08/28/17 17:00 Nasal Screen MRSA (PCR)(TINA) - Final Nasal Mrsa Negative Assess/Plan/Problems-Billing Assessment: Mr. Yen is a 56 yo male with a PMH of COPD, afib who was admitted on with a COPD exacerbation and afib with RVR. - Patient Problems (1) COPD exacerbation Comment: - Continues to improve, not hypoxic on room air.. - CTA chest negative. - Continue prednisone taper, azithromycin. - Continue albuterol, dulera. (2) Atrial fibrillation Comment: - RVR resolved. - Appreciate consultation from Dr. Spencer. - Echo quality poor but no significant changes noted. - Mag and K repleted - Continue metoprolol. - Cannot be anticoagulated due to history of GI bleed. (3) Daily consumption of alcohol Comment: - Alcohol abstinence reinforced. (4) Hypertension Comment: - SBP 120-130. - Continue metoprolol. (5) DVT prophylaxis Comment: - sq heparin. (6) Full code status Status and Disposition: Inpatient. Discharge to home.
[2017-08-30 11:33] VITALS: BP 126/79
--- NOTE | 2017-08-31 03:48 | DS ---
CC: Dr. Heredia* [facility] MEDICINE DISCHARGE SUMMARY: DATE OF ADMISSION: 08/28/17 DATE OF DISCHARGE: 08/30/17 PRIMARY CARE PHYSICIAN: Dr. Heredia. ATTENDING PHYSICIAN: Dr. Yahir Lubin * (dictation provided by Jodie German NP ). PRIMARY DIAGNOSES: 1. Atrial fibrillation with rapid ventricular response. 2. Chronic obstructive pulmonary disease exacerbation. SECONDARY DIAGNOSES: 1. History of chronic obstructive pulmonary disease. 2. History of atrial fibrillation. 3. History of ulcerative colitis. 4. Hepatitis C. PAST SURGICAL HISTORY: 1. History of colectomy. 2. Bilateral knee arthroscopy. 3. Tonsillectomy. MEDICATIONS AT THE TIME OF DISCHARGE: 1. Prednisone 10 mg p.o. taper. 2. Azithromycin 250 mg p.o. x3 days. 3. Amlodipine 5 mg p.o. daily. 4. Serevent 1 puff inhaled b.i.d. 5. Toprol-XL 100 mg p.o. daily. 6. Flovent 1 puff inhaled b.i.d. 7. Ventolin 2 puffs inhaled q.6 hours as needed. 8. Ventolin 2.5 mg inhaled q.4 hours as needed. HOSPITAL COURSE: Mr. Yen is a 56-year-old male with past medical history of COPD and AFib, who presented to the hospital on 08/28/17 with concern for chest pain and shortness of breath as well as the fast heart rate. Please see the dictated H and P from Mark Gutierrez NP, for complete details. In brief, the patient is in a very stressful time in his life and is looking at possibly being evicted. 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 EMS was called and he was brought to the emergency room. In the emergency room, his heart rate was as high as 160 with AFib, RVR. His workup included a chest x-ray, which was read as follows: "No active cardiopulmonary disease." He also had a chest thorax CTA to rule out pulmonary embolism, which was read as follows: "Emphysematous changes without evidence of active cardiopulmonary disease." He had a transthoracic echocardiogram, which was of poor quality and was unable to estimate to the ejection fraction, but no clear abnormalities were identified despite the poor quality. The patient was also seen in consultation by Dr. Spencer from Cardiology. He agreed with the initial treatment with the Cardizem intravenously and recommended lifestyle changes including his avoidance of alcohol, caffeinated drinks, and stimulants. He recommended that we maintain electrolytes with potassium of greater than 4, magnesium greater than 2. These electrolytes were repleted during the hospitalization. Mr. Yen was initially on a Cardizem drip in the intensive care unit; however, his heart rate was controlled quickly and he moved out to our telemetry floor. The patient has been feeling well and improving slowly though significantly. Today, he is not hypoxic on room air. His heart rate has remained controlled since admission. He is ambulating on the unit without difficulty. Mr. Yen is medically stable for discharge to home. He is worried about an upcoming eviction and I have provided him information about the [facility] in [place] to assist with housing and other support services. DISPOSITION: Home. DIET: Low salt with avoiding caffeinated beverages and alcohol. ACTIVITY: As tolerated. FOLLOWUP PLANS: Please follow up with Dr. Heredia. The patient has been encouraged to call on Thursday to make an appointment. TIME SPENT: Approximately 60 minutes was spent on the discharge of this patient , more than half of the time was spent with the patient at the bedside reviewing the events leading up this hospitalization, performing the physical examination, and reviewing my plan of care. JODIE GERMAN NP [id number]/[facility] #: [id number] ELIUD
== END 2017-08-30 12:41 | disposition home or self-care (01) | DRG 140 ==
LOC: ED 11:33 → ICU 13:50 → MEDTELE 08-29 05:13
PROVIDERS: ADMIT Internal Medicine; ATTEND Internal Medicine
DX: J44.1 Chronic obstructive pulmonary disease with (acute) exacerbation (principal); K51.90 Ulcerative colitis, unspecified, without complications; E83.42 Hypomagnesemia; I48.91 Unspecified atrial fibrillation; B19.20 Unspecified viral hepatitis C without hepatic coma; E87.6 Hypokalemia; F10.10 Alcohol abuse, uncomplicated; Z79.899 Other long term (current) drug therapy; Z88.1 Allergy status to other antibiotic agents; Z87.891 Personal history of nicotine dependence; Z93.2 Ileostomy status; Z88.8 Allergy status to other drugs, medicaments and biological substances
CPT/HCPCS: 36415; 71010; 71275; 80048; 80053; 82272; 83735; 83880; 84443; 84484; 85025; 87641; 93005; 93306; 94640; 94760; A9270-GY; C8929; J0456; J1160; J1644; J2930; J3475; J3490; J7512; Q9967

== ENCOUNTER 2017-09-27 14:18 | Inpatient (IN) | payer OTHER ==
[2017-09-27] MEDS ORDERED: Albuterol/Ipratropium NEB.SOL* Albuterol 2.5 MG/Ipratropium 0.5 MG 3 ML INH ONE (15:00)
[2017-09-27] MEDS ORDERED: methylPREDNISolone 125 MG* 2 ML VIAL IV ONE (15:00)
--- NOTE | 2017-09-27 15:43 | RAD ---
INDICATION: Shortness of breath. COMPARISON: Correlation is made with prior studies from June 06, 2016 and August 28, 2017. TECHNIQUE: Dual-energy PA and lateral views of the chest were obtained. FINDINGS: The heart is within normal limits in size. Mediastinal and hilar contours appear within normal limits. The lungs are hyperinflated. There is a faint 6 mm nodular density which projects over the left midlung which is not seen on prior films and may represent a nipple shadow. This is also not seen on recent CT angiogram of the chest from August 28, 2017. The lungs are otherwise clear. No pleural effusion is seen. IMPRESSION: 1. POSSIBLE SMALL LEFT PULMONARY NODULE VERSUS NIPPLE SHADOW. RECOMMEND REPEAT PA CHEST FILM WITH NIPPLE MARKERS. 2. COPD, NO EVIDENCE FOR ACUTE FINDING.
[2017-09-27 15:45] LABS: ABS Basophils 0.1 10^3/ul (0-0.2); ABS Eosinophils 0.5 10^3/ul (0-0.6); ABS Lymphocytes 0.5 10^3/ul (1.0-4.8); ABS Monocytes 0.8 10^3/ul (0-0.8); ABS Neutrophils 8.5 10^3/ul (1.5-7.7); ABS Nucleated RBC 0 10^3/ul; Eosinophil % 4.5 % (0-6); Hematocrit 46 % (42-52); Lymphocyte % 4.5 % (25-47); Mean Corpuscular HGB Conc 35 g/dl (31-36); Mean Corpuscular Hemoglobin 34 pg (27-31); Mean Corpuscular Volume 97 fL (80-94); Mean Platelet Volume 8 um3 (7.4-10.4); Nucleated Red Blood Cells % 0.1; Platelet Count 198 10^3/ul (150-450); Red Blood Count 4.75 10^6/ul (4.0-5.4); Red Cell Distribution Width 14 % (10.5-15); White Blood Count 10.2 10^3/ul (3.5-10.8)
[2017-09-27 15:51] LABS: INR 0.92 (0.77-1.02)
[2017-09-27 15:57] LABS: EGFR Non-African American 63.2 (>60)
[2017-09-27] MEDS ORDERED: Acetaminophen TAB* 325 MG PO PRN (17:34)
[2017-09-27] MEDS ORDERED: Temazepam CAP* 15 MG PO PRN (17:34)
[2017-09-27] MEDS ORDERED: NS 0.9% 1000 ML* 1,000 ML IV SCH (17:45)
[2017-09-27] MEDS ORDERED: Albuterol HFA INHALER* 8 gm MDI INH PRN (17:57)
[2017-09-27] MEDS ORDERED: Azithromycin IV(*) 500 MG in NS 0.9% 250 ML* 250 ML IVPB SCH (18:00)
[2017-09-27] MEDS ORDERED: Azithromycin IV(*) 500 MG in D5W 250 ML BAG* 250 ML IVPB SCH (18:32)
[2017-09-27] MEDS: Mometasone 220 MCG MDI INH SCH ×2 (19:53→20:14)
--- NOTE | 2017-09-27 22:41 | ED ---
Kavita Rosenberg Julia, scribed for Junior Alvarez MD on 09/27/17 at 1605 . Shortness of Breath - HPI Summary HPI Summary: This patient is a 56 year old M BIBA to [facility] with a chief complaint of worsening SOB since 2:00 this morning. Patient reports lightheaded dizziness, right sided chest pain. Patient denies lower extremity edema. Symptoms aggravated by cold weather and walking. Symptoms relieved by sitting. Patient has received two breathing treatments [facility] today. - History of Current Complaint Chief Complaint: EDShortnessOfBreath Time Seen by Provider: 09/27/17 14:40 Hx Obtained From: Patient Onset/Duration: Lasting Hours Timing: Constant Aggrevating Factors: Other - cold air and exertion Alleviating Factors: Upright Position Associated Signs & Symptoms: Chest Pain Unrelated to Cough, Dizzy - Allergy/Home Medications Allergies/Adverse Reactions: Allergies Allergy/AdvReac Type Severity Reaction Status Date / Time Ciprofloxacin Allergy Itching Verified 07/18/17 06:38 PMH/Surg Hx/FS Hx/Imm Hx Endocrine/Hematology History: Denies: Hx Anticoagulant Therapy, Hx Diabetes, Hx Systemic Lupus Erythematosus, Hx Thyroid Disease Cardiovascular History: Reports: Hx Atrial Fibrillation - no anticoagulants used currently, Hx Hypertension Denies: Hx Congestive Heart Failure, Hx Deep Vein Thrombosis, Hx Myocardial Infarction, Hx Pacemaker/ICD Comment Only: Other Cardiovascular Problems/Disorders - A FIB Respiratory History: Reports: Hx Asthma, Hx Chronic Obstructive Pulmonary Disease (COPD), Other Respiratory Problems/Disorders - PNA Denies: Hx Lung Cancer, Hx Pneumonia, Hx Pulmonary Embolism GI History: Reports: Hx Gastrointestinal Bleed, Hx Obstructive Bowel, Hx Ileostomy - colostomy 2012, Other GI Disorders - colostomy Denies: Hx Gall Bladder Disease, Hx Ulcer, Hx Urosepsis History: Denies: Hx Kidney Stones, Hx Renal Disease Musculoskeletal History: Reports: Hx Orthopedic Injury - surgeries in both knees Denies: Hx Arthritis, Hx Rheumatoid Arthritis, Hx Osteoporosis Sensory History: Reports: Hx Contacts or Glasses Denies: Hx Hearing Aid, Other Sensory Impairments Opthamlomology History: Reports: Hx Contacts or Glasses Denies: Other Sensory Impairments Neurological History: Denies: Hx Dementia, Hx Migraine, Hx Seizures, Hx Transient Ischemic Attacks (TIA) Psychiatric History: Denies: Hx Anxiety, Hx Depression, Hx Schizophrenia, Hx Bipolar Disorder - Cancer History Hx Chemotherapy: No - Surgical History Surgery Procedure, Year, and Place: COLECTOMY FOR ULCERATIVE COLITIS AT [facility] - has ostomy now 12/2012; bilat knees for cartilage. Tonsils Hx Anesthesia Reactions: No - Immunization History Date of Influenza Vaccine: 06/07/16 Infectious Disease History: Yes Infectious Disease History: Reports: Hx Hepatitis - hep c Denies: Hx Clostridium Difficile, Hx Human Immunodeficiency Virus (HIV), Hx of Known/Suspected MRSA, Hx Shingles, Hx Tuberculosis, Hx Known/Suspected VRE, Hx Known/Suspected VRSA, History Other Infectious Disease, Traveled Outside the [place] in Last 30 Days - Family History Known Family History: Positive: Unknown - Patient is adopted, family history is unknown. - Social History Alcohol Use: Weekly Alcohol Amount: 2 Hx Substance Use: No Substance Use Type: Reports: None Hx Tobacco Use: Yes Smoking Status (MU): Former Smoker Type: Cigarettes Amount Used/How Often: 1/2 ppd Length of Time of Smoking/Using Tobacco: 40 years Have You Smoked in the Last Year: Yes Review of Systems Positive: Chest Pain - right sided Positive: Shortness Of Breath Negative: Edema Neurological: Other - lightheaded dizziness All Other Systems Reviewed And Are Negative: Yes Physical Exam - Summary Physical Exam Summary: Appearance: The patient is well-nourished in no acute distress and in no acute pain. Skin: The skin is warm and dry and skin color reflects adequate perfusion. HEENT: The head is normocephalic and atraumatic. The pupils are equal and reactive. The conjunctivae are clear and without drainage. Nares are patent and without drainage. Mouth reveals moist mucous membranes and the throat is without erythema and exudate. The external ears are intact. The ear canals are patent and without drainage. The tympanic membranes are intact. Neck: the neck is supple with full range of motion and non-tender. There are no carotid bruits. There is no neck vein distension. Respiratory: Chest is non-tender. Lungs are clear to auscultation and breath sounds are symmetrical, equal, but decreased. There is an increased E:I ratio. Cardiovascular: Heart is regular rate and rhythm. There is no murmur or rub auscultated. There is no peripheral edema and pulses are symmetrical and equal. Abdomen: The abdomen is soft and non-tender. There are normal bowel sounds heard in all four quadrants and there is no organomegaly palpated. Musculoskeletal: There is no back tenderness noted. Extremities are non-tender with full range of motion. There is good capillary refill. There is no peripheral edema or calf tenderness elicited. Neurological: Patient is alert and oriented to person, place and time. The patient has symmetrical motor strength in all four extremities. Cranial nerves are grossly intact. Deep tendon reflexes are symmetrical and equal in all four extremities. Psychiatric: The patient has an appropriate affect and does not exhibit any anxiety or depression. Triage Information Reviewed: Yes Vital Signs On Initial Exam: Initial Vitals Temp Pulse Resp BP Pulse Ox 97.8 F 103 24 111/91 95 09/27/17 14:21 09/27/17 14:21 09/27/17 14:21 09/27/17 14:21 09/27/17 14:21 Vital Signs Reviewed: Yes - Yen Coma Scale Coma Scale Total: 15 Diagnostics - Vital Signs Vital Signs Temp Pulse Resp BP Pulse Ox 09/27/17 15:48 100 20 98 09/27/17 15:03 93 20 93 09/27/17 15:00 102 25 114/91 95 09/27/17 14:30 103 21 119/95 95 09/27/17 14:28 104 94 09/27/17 14:27 111/91 09/27/17 14:21 97.8 F 103 24 111/91 95 - Laboratory Lab Results: Lab Results 09/27/17 09/27/17 09/27/17 Range/Units 15:27 15:27 15:27 WBC 10.2 (3.5-10.8) 10^3/ul RBC 4.75 (4.0-5.4) 10^6/ul Hgb 16.0 (14.0-18.0) g/dl Hct 46 (42-52) % MCV 97 H (80-94) fL MCH 34 H (27-31) pg MCHC 35 (31-36) g/dl RDW 14 (10.5-15) % Plt Count 198 (150-450) 10^3/ul MPV 8 (7.4-10.4) um3 Neut % (Auto) 82.9 (38-83) % Lymph % (Auto) 4.5 L (25-47) % [facility] % (Auto) 7.4 (1-9) % Eos % (Auto) 4.5 (0-6) % Baso % (Auto) 0.7 (0-2) % Absolute Neuts (auto) 8.5 H (1.5-7.7) 10^3/ul Absolute Lymphs (auto) 0.5 L (1.0-4.8) 10^3/ul Absolute Monos (auto) 0.8 (0-0.8) 10^3/ul Absolute Eos (auto) 0.5 (0-0.6) 10^3/ul Absolute Basos (auto) 0.1 (0-0.2) 10^3/ul Absolute Nucleated RBC 0 10^3/ul Nucleated RBC % 0.1 INR (Anticoag Therapy) (0.77-1.02) Sodium 135 (133-145) mmol/L Potassium 4.2 (3.5-5.0) mmol/L Chloride 102 (101-111) mmol/L Carbon Dioxide 24 (22-32) mmol/L Anion Gap 9 (2-11) mmol/L BUN 11 (6-24) mg/dL Creatinine 1.19 H (0.67-1.17) mg/dL Est GFR ( Amer) 81.3 (>60) Est GFR (Non-Af Amer) 63.2 (>60) BUN/Creatinine Ratio 9.2 (8-20) Glucose 109 H (70-100) mg/dL Lactic Acid (0.5-2.0) mmol/L Calcium 9.2 (8.6-10.3) mg/dL Total Bilirubin 0.90 (0.2-1.0) mg/dL AST 34 (13-39) U/L ALT 24 (7-52) U/L Alkaline Phosphatase 91 (34-104) U/L Troponin I 0.01 (<0.04) ng/mL B-Natriuretic Peptide 97 ( - 100) pg/mL Total Protein 6.6 (6.4-8.9) g/dL Albumin 4.3 (3.2-5.2) g/dL Globulin 2.3 (2-4) g/dL Albumin/Globulin Ratio 1.9 (1-3) 09/27/17 09/27/17 Range/Units 15:27 15:27 WBC (3.5-10.8) 10^3/ul RBC (4.0-5.4) 10^6/ul Hgb (14.0-18.0) g/dl Hct (42-52) % MCV (80-94) fL MCH (27-31) pg MCHC (31-36) g/dl RDW (10.5-15) % Plt Count (150-450) 10^3/ul MPV (7.4-10.4) um3 Neut % (Auto) (38-83) % Lymph % (Auto) (25-47) % [facility] % (Auto) (1-9) % Eos % (Auto) (0-6) % Baso % (Auto) (0-2) % Absolute Neuts (auto) (1.5-7.7) 10^3/ul Absolute Lymphs (auto) (1.0-4.8) 10^3/ul Absolute Monos (auto) (0-0.8) 10^3/ul Absolute Eos (auto) (0-0.6) 10^3/ul Absolute Basos (auto) (0-0.2) 10^3/ul Absolute Nucleated RBC 10^3/ul Nucleated RBC % INR (Anticoag Therapy) 0.92 (0.77-1.02) Sodium (133-145) mmol/L Potassium (3.5-5.0) mmol/L Chloride (101-111) mmol/L Carbon Dioxide (22-32) mmol/L Anion Gap (2-11) mmol/L BUN (6-24) mg/dL Creatinine (0.67-1.17) mg/dL Est GFR ( Amer) (>60) Est GFR (Non-Af Amer) (>60) BUN/Creatinine Ratio (8-20) Glucose (70-100) mg/dL Lactic Acid 1.6 (0.5-2.0) mmol/L Calcium (8.6-10.3) mg/dL Total Bilirubin (0.2-1.0) mg/dL AST (13-39) U/L ALT (7-52) U/L Alkaline Phosphatase (34-104) U/L Troponin I (<0.04) ng/mL B-Natriuretic Peptide ( - 100) pg/mL Total Protein (6.4-8.9) g/dL Albumin (3.2-5.2) g/dL Globulin (2-4) g/dL Albumin/Globulin Ratio (1-3) Result Diagrams: 09/27/17 15:27 09/27/17 15:27 Lab Statement: Any lab studies that have been ordered have been reviewed, and results considered in the medical decision making process. - Radiology CXR Radiology Interpretation Completed By: Radiologist - No acute pathology. ED physician has reviewed this report. - EKG 15:12 Cardiac Rate: NL EKG Rhythm: Sinus Rhythm - at 93 BPM Course/Dx - Course Course Of Treatment: Mr. Yen presented with an exacerbation of his COPD and didn't improve much here in spite of the usual treatment. He is being admitted to the hospitalist service. - Diagnoses Provider Diagnoses: COPD exacerbation - Critical Care Time Critical Care Time: 30-74 min Discharge - Discharge Plan Condition: Stable Disposition: ADMITTED TO [facility] The documentation as recorded by the Kavita rangel Julia accurately reflects the service I personally performed and the decisions made by me, Junior Alvarez MD.
[2017-09-28] MEDS: methylPREDNISolone SOD 40 MG* 1 ML VIAL IV SCH ×4 (00:09→23:00)
[2017-09-28] MEDS: Heparin VIAL(*) 5000 UNITS/ML VIAL (FIVE THOUSAND) SUBCUT SCH ×4 (00:09→23:00)
[2017-09-28] MEDS: Albuterol/Ipratropium NEB.SOL* Albuterol 2.5 MG/Ipratropium 0.5 MG 3 ML INH PRN ×2 (02:06→10:19)
--- NOTE | 2017-09-28 04:39 | HP ---
ADDENDUM NOW INCLUDED ON THIS REPORT CC: Dr. Allyn Heredia * HISTORY AND PHYSICAL: DATE OF ADMISSION: 09/27/17 PRIMARY CARE PROVIDER: Dr. Allyn Heredia. CHIEF COMPLAINT: Shortness of breath and cough. HISTORY OF PRESENT ILLNESS: Ozzie Yen is a 56-year-old male with history of COPD and paroxysmal atrial fibrillation, who presented to the hospital complaining of cough and shortness of breath. Last time he was in the hospital was in August of 2017 and he stated that he finished his medications and he felt okay for a while. 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 He is going to be placed on observation for the diagnosis of COPD exacerbation. PAST MEDICAL HISTORY: 1. COPD, not oxygen dependent. 2. History of atrial fibrillation, paroxysmal. Last time it was diagnosed in August 2017 and it resolved spontaneously. The patient's LAY score was 1 and anticoagulation was not recommended. 3. History of ulcerative colitis, status post colectomy and colostomy in 2012. 4. History of hepatitis C, status post treatment. CURRENT MEDICATIONS: Include: 1. Serevent Diskus one puff b.i.d. 2. Metoprolol succinate 100 mg daily. 3. Flovent Diskus 250 mcg one puff b.i.d. 4. Albuterol inhaler on a p.r.n. basis. 5. Albuterol nebulizer on a p.r.n. basis. ALLERGIES: CIPROFLOXACIN. FAMILY HISTORY: Unknown, the patient was adopted. SOCIAL HISTORY: The patient quit smoking over a year ago and he had history of 40- pack year smoking. He drinks 1 to 2 beers a day. He does not have a surrogate decision maker at this point. REVIEW OF SYSTEMS: Please see history of present illness. All the remaining 12 systems were reviewed with the patient and were otherwise negative. PHYSICAL EXAMINATION GENERAL: The patient is a very pleasant 56-year-old male of thin body habitus, who is in no acute distress. Alert, awake, and oriented x3. VITAL SIGNS: Blood pressure of 105/74, heart rate of 106 and regular, respiratory rate of 25, oxygen saturation 85% on room air, temperature of 97.8. HEENT: Head: Atraumatic, normocephalic. Eyes: Pupils are equal, and reactive to light and accommodation. Oropharynx clear. Mucosa moist. NECK: Supple. No JVD. No bruits bilaterally. RESPIRATORY: Distant breath sounds bilaterally with bilateral mid lung wheezes. CARDIOVASCULAR: Regular rate and rhythm. No murmur. ABDOMEN: Soft, nontender. Bowel sounds present in all 4 quadrants. Colostomy is in place with no evidence of abnormalities. EXTREMITIES: There is no edema. Pulses +2 bilaterally. No clubbing or cyanosis. NEUROLOGIC EVALUATION: Speech clear. Cranial nerves II through XII grossly intact. Motor strength is 5/5 bilaterally. SKIN: On evaluation of the skin, no ecchymotic areas or rashes noted. DIAGNOSTIC STUDIES/LABORATORY DATA: Shows a white blood cell count of 10.2, hemoglobin of 16.0, hematocrit of 46 and platelets of 198. Sodium is 135, potassium 4.2, chloride 102, carbon dioxide 24, BUN 11, creatinine 1.19. Liver function is unremarkable. Troponin of 0.01. The patient's EKG showed normal sinus rhythm with a heart rate of 93 beats per minute, normal axis, no ST changes. Portable chest x-ray was read by the radiologist as "possible small left pulmonary nodule versus nipple shadow. Recommended repeat PA chest film with nipple markers in the future. Please note that the patient had a CT angiogram of the chest obtained just a month ago which showed emphysematous changes without evidence of acute cardiopulmonary disease." ASSESSMENT AND PLAN: 1. A 56-year-old male with history of chronic obstructive pulmonary disease presents with exacerbation. The patient is going to be placed on overnight observation with Solu-Medrol treatment as well as azithromycin for bronchitis. 2. In regards to the patient's history of paroxysmal atrial fibrillation, metoprolol is going to be continued. The patient is currently in sinus rhythm. 3. In regards to the DVT prophylaxis, the patient is going to be placed on heparin subcutaneously. TIME SPENT: Approximately 55 minutes was spent on admission of this patient, more than half of that time was spent [id number] with the patient during the interview and physical exam. ADDENDUM: Please also note that the patient has kidney injury likely due to the dehydration. Intravenous fluids are going to be instituted and repeat basic metabolic panel is going to be obtained in the morning. [id number]/[facility] #: [id number]/[facility] #: [id number] [facility] CENTERKali
--- NOTE | 2017-09-28 05:49 | HP ---
ADDENDUM: Please also note that the patient has kidney injury likely due to the dehydration. Intravenous fluids are going to be instituted and repeat basic metabolic panel is going to be obtained in the morning. [id number]/[facility] #: [id number] MTDD
[2017-09-28 08:02] LABS: ABS Basophils 0 10^3/ul (0-0.2); ABS Eosinophils 0 10^3/ul (0-0.6); ABS Lymphocytes 0.2 10^3/ul (1.0-4.8); ABS Monocytes 0.5 10^3/ul (0-0.8); ABS Neutrophils 13.6 10^3/ul (1.5-7.7); ABS Nucleated RBC 0 10^3/ul; Eosinophil % 0 % (0-6); Hematocrit 42 % (42-52); Hemoglobin 14.2 g/dl (14.0-18.0); Lymphocyte % 1.6 % (25-47); Mean Corpuscular HGB Conc 34 g/dl (31-36); Mean Corpuscular Hemoglobin 33 pg (27-31); Mean Corpuscular Volume 98 fL (80-94); Mean Platelet Volume 9 um3 (7.4-10.4); Nucleated Red Blood Cells % 0; Platelet Count 168 10^3/ul (150-450); Red Blood Count 4.26 10^6/ul (4.0-5.4); Red Cell Distribution Width 14 % (10.5-15); White Blood Count 14.3 10^3/ul (3.5-10.8)
[2017-09-28 08:18] LABS: EGFR Non-African American 89.6 (>60)
--- NOTE | 2017-09-28 09:41 | RAD ---
INDICATION: Follow-up possible nipple shadow with nipple markers. COMPARISON: September 27, 2017 TECHNIQUE: Dual energy PA and routine lateral views of the chest were obtained. REPORT: Subtle LEFT midlung zone density on the prior exam corresponds with the nipple marker without concern. Elevated lung volumes and both diffuse mild prominence of the interstitial markings and patchy rarefaction of the mid to upper lung zone interstitial markings. No focal pulmonary lesion, compelling alveolar consolidation, pleural effusion, pneumothorax. The heart, pulmonary vasculature, and mediastinal contours are unremarkable. IMPRESSION: 1. Nipple markers confirm the patient's LEFT nipple corresponds with the noted nodular density on the September 27, 2017 exam without concern. 2. Stigmata of advanced chronic obstructive disease and emphysema.
[2017-09-28] MEDS: Metoprolol Succinate XL TAB* 100 MG PO SCH (10:51)
--- NOTE | 2017-09-28 17:40 | PN ---
Subjective Date of Service: 09/28/17 Interval History: Pt states he is starting to feel better. He has been coughing up some light yellow sputum. He notices he coughs up more after he has ambulated around the floor. He states after 2 laps he needs to rest and he is surprised by how little he is able to ambulate without having to rest. Objective Active Medications: Acetaminophen (Tylenol Tab*) 650 mg PO Q4H PRN PRN Reason: FEVER/PAIN Albuterol (Ventolin Hfa Inhaler*) 2 puff INH Q6HR PRN PRN Reason: WHEEZING Albuterol/Ipratropium (Duoneb (Albuterol 2.5 Mg/Ipratropium 0.5 Mg)) 1 neb INH [id number] AWAKE PRN PRN Reason: sob/wheexing Last Admin: 09/28/17 10:19 Dose: 1 neb Heparin Sodium (Porcine) (Heparin Vial(*)) 5,000 units SUBCUT Q8HR [facility] Last Admin: 09/28/17 15:00 Dose: 5,000 units Sodium Chloride (Ns 0.9% 1000 Ml*) 1,000 mls @ 100 mls/hr IV PER RATE [facility] Last Admin: 09/27/17 18:38 Dose: 100 mls/hr Azithromycin 500 mg/ Sodium (Chloride) 250 mls @ 250 mls/hr IVPB Q24HR@1830 [facility] Methylprednisolone Sodium Succinate (Solu-Medrol 40 Mg) 40 mg IV Q8H [facility] Last Admin: 09/28/17 15:00 Dose: 40 mg Metoprolol Succinate (Toprol Xl Tab*) 100 mg PO DAILY [facility] Last Admin: 09/28/17 10:51 Dose: 100 mg Mometasone Furoate (Asmanex 220 Mcg Mdi *) 2 puff INH QPM [facility] Last Admin: 09/27/17 20:14 Dose: 2 puff Temazepam (Restoril Cap*) 15 mg PO BEDTIME PRN PRN Reason: INSOMNIA Vital Signs - 8 hr 09/28/17 09/28/17 09/28/17 10:21 11:38 15:35 Temperature 98.2 F Pulse Rate 88 87 92 Respiratory 20 16 18 Rate Blood Pressure 108/60 99/75 (mmHg) O2 Sat by Pulse 97 95 94 Oximetry Oxygen Devices in Use Now: None Appearance: Middle aged male sitting on the edge of the bed, NAD Eyes: No Scleral Icterus Ears/Nose/Mouth/Throat: Mucous Membranes Moist Respiratory: Symmetrical Chest Expansion and Respiratory Effort, Clear to Auscultation - markedly diminished breath sounds in all lung key Cardiovascular: NL Sounds; No Murmurs; No JVD, RRR, No Edema Abdominal: NL Sounds; No Tenderness; No Distention Extremities: No Clubbing, Cyanosis Skin: No Rash or Ulcers, No Nodules or Sclerosis Neurological: Alert and Oriented x 3 Result Diagrams: 09/28/17 07:11 09/28/17 07:11 Additional Lab and Data: Lab Results 09/27/17 09/27/17 09/27/17 Range/Units 15:27 15:27 15:27 WBC 10.2 (3.5-10.8) 10^3/ul RBC 4.75 (4.0-5.4) 10^6/ul Hgb 16.0 (14.0-18.0) g/dl Hct 46 (42-52) % MCV 97 H (80-94) fL MCH 34 H (27-31) pg MCHC 35 (31-36) g/dl RDW 14 (10.5-15) % Plt Count 198 (150-450) 10^3/ul MPV 8 (7.4-10.4) um3 Neut % (Auto) 82.9 (38-83) % Lymph % (Auto) 4.5 L (25-47) % [facility] % (Auto) 7.4 (1-9) % Eos % (Auto) 4.5 (0-6) % Baso % (Auto) 0.7 (0-2) % Absolute Neuts (auto) 8.5 H (1.5-7.7) 10^3/ul Absolute Lymphs (auto) 0.5 L (1.0-4.8) 10^3/ul Absolute Monos (auto) 0.8 (0-0.8) 10^3/ul Absolute Eos (auto) 0.5 (0-0.6) 10^3/ul Absolute Basos (auto) 0.1 (0-0.2) 10^3/ul Absolute Nucleated RBC 0 10^3/ul Nucleated RBC % 0.1 INR (Anticoag Therapy) (0.77-1.02) Sodium 135 (133-145) mmol/L Potassium 4.2 (3.5-5.0) mmol/L Chloride 102 (101-111) mmol/L Carbon Dioxide 24 (22-32) mmol/L Anion Gap 9 (2-11) mmol/L BUN 11 (6-24) mg/dL Creatinine 1.19 H (0.67-1.17) mg/dL Est GFR ( Amer) 81.3 (>60) Est GFR (Non-Af Amer) 63.2 (>60) BUN/Creatinine Ratio 9.2 (8-20) Glucose 109 H (70-100) mg/dL Lactic Acid (0.5-2.0) mmol/L Calcium 9.2 (8.6-10.3) mg/dL Total Bilirubin 0.90 (0.2-1.0) mg/dL AST 34 (13-39) U/L ALT 24 (7-52) U/L Alkaline Phosphatase 91 (34-104) U/L Troponin I 0.01 (<0.04) ng/mL B-Natriuretic Peptide 97 ( - 100) pg/mL Total Protein 6.6 (6.4-8.9) g/dL Albumin 4.3 (3.2-5.2) g/dL Globulin 2.3 (2-4) g/dL Albumin/Globulin Ratio 1.9 (1-3) 09/27/17 09/27/17 Range/Units 15:27 15:27 WBC (3.5-10.8) 10^3/ul RBC (4.0-5.4) 10^6/ul Hgb (14.0-18.0) g/dl Hct (42-52) % MCV (80-94) fL MCH (27-31) pg MCHC (31-36) g/dl RDW (10.5-15) % Plt Count (150-450) 10^3/ul MPV (7.4-10.4) um3 Neut % (Auto) (38-83) % Lymph % (Auto) (25-47) % [facility] % (Auto) (1-9) % Eos % (Auto) (0-6) % Baso % (Auto) (0-2) % Absolute Neuts (auto) (1.5-7.7) 10^3/ul Absolute Lymphs (auto) (1.0-4.8) 10^3/ul Absolute Monos (auto) (0-0.8) 10^3/ul Absolute Eos (auto) (0-0.6) 10^3/ul Absolute Basos (auto) (0-0.2) 10^3/ul Absolute Nucleated RBC 10^3/ul Nucleated RBC % INR (Anticoag Therapy) 0.92 (0.77-1.02) Sodium (133-145) mmol/L Potassium (3.5-5.0) mmol/L Chloride (101-111) mmol/L Carbon Dioxide (22-32) mmol/L Anion Gap (2-11) mmol/L BUN (6-24) mg/dL Creatinine (0.67-1.17) mg/dL Est GFR ( Amer) (>60) Est GFR (Non-Af Amer) (>60) BUN/Creatinine Ratio (8-20) Glucose (70-100) mg/dL Lactic Acid 1.6 (0.5-2.0) mmol/L Calcium (8.6-10.3) mg/dL Total Bilirubin (0.2-1.0) mg/dL AST (13-39) U/L ALT (7-52) U/L Alkaline Phosphatase (34-104) U/L Troponin I (<0.04) ng/mL B-Natriuretic Peptide ( - 100) pg/mL Total Protein (6.4-8.9) g/dL Albumin (3.2-5.2) g/dL Globulin (2-4) g/dL Albumin/Globulin Ratio (1-3) Assess/Plan/Problems-Billing Mr Yen is a 56 yo M who has a h/o COPD and past tobacco abuse who presented to the ER with c/o SOB and was admitted for a COPD exacerbation. - Patient Problems (1) COPD exacerbation Current Visit: Yes Status: Acute Code(s): J44.1 - CHRONIC OBSTRUCTIVE PULMONARY DISEASE W (ACUTE) EXACERBATION SNOMED Code(s): 884586826715254 Comment: The patient is slowly improving. His breath sounds are markedly diminished. Continue azithromycin and solumedrol. Continue albuterol and dulera. (2) Hypertension Current Visit: Yes Status: Acute Code(s): I10 - ESSENTIAL (PRIMARY) HYPERTENSION SNOMED Code(s): 58888459 Comment: Excellent control. Continue current medication regimen. (3) Atrial fibrillation Current Visit: Yes Status: Chronic Code(s): I48.91 - UNSPECIFIED ATRIAL FIBRILLATION SNOMED Code(s): 86787135 Comment: The patient has a h/o paroxysmal Afib. Currently sounds to be regular. Continue metoprolol. (4) DVT prophylaxis Current Visit: Yes Status: Acute Onset Date: 12/26/14 Code(s): OHU0118 - SNOMED Code(s): 629041146 Comment: SQ heparin (5) Full code status Current Visit: Yes Status: Acute Onset Date: 12/26/14 Code(s): Z78.9 - OTHER SPECIFIED HEALTH STATUS SNOMED Code(s): 447549637 Status and Disposition: possibly home tomorrow.
[2017-09-28] MEDS ORDERED: Azithromycin IV(*) 500 MG in NS 0.9% 250 ML* 250 ML IVPB SCH (18:30)
[2017-09-28] MEDS: Mometasone 220 MCG MDI INH SCH (21:02)
[2017-09-29] MEDS: Albuterol/Ipratropium NEB.SOL* Albuterol 2.5 MG/Ipratropium 0.5 MG 3 ML INH PRN ×2 (03:32→10:53)
[2017-09-29] MEDS: Heparin VIAL(*) 5000 UNITS/ML VIAL (FIVE THOUSAND) SUBCUT SCH ×2 (06:26→14:10)
[2017-09-29] MEDS: methylPREDNISolone SOD 40 MG* 1 ML VIAL IV SCH ×2 (07:55→14:10)
[2017-09-29] MEDS: Metoprolol Succinate XL TAB* 100 MG PO SCH (07:56)
--- NOTE | 2017-09-29 13:47 | PN ---
Subjective Date of Service: 09/29/17 Interval History: Pt is feeling better today. He has been able to ambulate further today. He denies any pain. No significant SOB or cough currently. He states that he can not nut picker his medications today as he has no way to get to the bank to get money and then get to the pharmacy. Objective Active Medications: Acetaminophen (Tylenol Tab*) 650 mg PO Q4H PRN PRN Reason: FEVER/PAIN Albuterol (Ventolin Hfa Inhaler*) 2 puff INH Q6HR PRN PRN Reason: WHEEZING Albuterol/Ipratropium (Duoneb (Albuterol 2.5 Mg/Ipratropium 0.5 Mg)) 1 neb INH [id number] AWAKE PRN PRN Reason: sob/wheexing Last Admin: 09/29/17 10:53 Dose: 1 neb Heparin Sodium (Porcine) (Heparin Vial(*)) 5,000 units SUBCUT Q8HR COUNTS INCLUDE 234 BEDS AT THE [facility] Last Admin: 09/29/17 06:26 Dose: 5,000 units Sodium Chloride (Ns 0.9% 1000 Ml*) 1,000 mls @ 100 mls/hr IV PER RATE COUNTS INCLUDE 234 BEDS AT THE [facility] Last Admin: 09/27/17 18:38 Dose: 100 mls/hr Azithromycin 500 mg/ Sodium (Chloride) 250 mls @ 250 mls/hr IVPB Q24HR@1830 COUNTS INCLUDE 234 BEDS AT THE [facility] Last Admin: 09/28/17 18:26 Dose: 250 mls/hr Methylprednisolone Sodium Succinate (Solu-Medrol 40 Mg) 40 mg IV Q8H COUNTS INCLUDE 234 BEDS AT THE [facility] Last Admin: 09/29/17 07:55 Dose: 40 mg Metoprolol Succinate (Toprol Xl Tab*) 100 mg PO DAILY COUNTS INCLUDE 234 BEDS AT THE [facility] Last Admin: 09/29/17 07:56 Dose: 100 mg Mometasone Furoate (Asmanex 220 Mcg Mdi *) 2 puff INH QPM COUNTS INCLUDE 234 BEDS AT THE [facility] Last Admin: 09/28/17 21:02 Dose: 2 puff Temazepam (Restoril Cap*) 15 mg PO BEDTIME PRN PRN Reason: INSOMNIA Vital Signs - 8 hr 09/29/17 09/29/17 09/29/17 07:32 08:00 10:55 Temperature 97.8 F Pulse Rate 75 90 Respiratory 16 16 18 Rate Blood Pressure 109/64 (mmHg) O2 Sat by Pulse 96 95 Oximetry Oxygen Devices in Use Now: None Appearance: Middle aged male sitting on the edge of the bed, NAD Eyes: No Scleral Icterus Ears/Nose/Mouth/Throat: Mucous Membranes Moist Respiratory: Symmetrical Chest Expansion and Respiratory Effort, Clear to Auscultation Cardiovascular: NL Sounds; No Murmurs; No JVD, RRR, No Edema Abdominal: NL Sounds; No Tenderness; No Distention Extremities: No Clubbing, Cyanosis Skin: No Nodules or Sclerosis Neurological: Alert and Oriented x 3 Result Diagrams: 09/28/17 07:11 09/28/17 07:11 Additional Lab and Data: Lab Results 09/27/17 09/27/17 09/27/17 Range/Units 15:27 15:27 15:27 WBC 10.2 (3.5-10.8) 10^3/ul RBC 4.75 (4.0-5.4) 10^6/ul Hgb 16.0 (14.0-18.0) g/dl Hct 46 (42-52) % MCV 97 H (80-94) fL MCH 34 H (27-31) pg MCHC 35 (31-36) g/dl RDW 14 (10.5-15) % Plt Count 198 (150-450) 10^3/ul MPV 8 (7.4-10.4) um3 Neut % (Auto) 82.9 (38-83) % Lymph % (Auto) 4.5 L (25-47) % [place] % (Auto) 7.4 (1-9) % Eos % (Auto) 4.5 (0-6) % Baso % (Auto) 0.7 (0-2) % Absolute Neuts (auto) 8.5 H (1.5-7.7) 10^3/ul Absolute Lymphs (auto) 0.5 L (1.0-4.8) 10^3/ul Absolute Monos (auto) 0.8 (0-0.8) 10^3/ul Absolute Eos (auto) 0.5 (0-0.6) 10^3/ul Absolute Basos (auto) 0.1 (0-0.2) 10^3/ul Absolute Nucleated RBC 0 10^3/ul Nucleated RBC % 0.1 INR (Anticoag Therapy) (0.77-1.02) Sodium 135 (133-145) mmol/L Potassium 4.2 (3.5-5.0) mmol/L Chloride 102 (101-111) mmol/L Carbon Dioxide 24 (22-32) mmol/L Anion Gap 9 (2-11) mmol/L BUN 11 (6-24) mg/dL Creatinine 1.19 H (0.67-1.17) mg/dL Est GFR ( Amer) 81.3 (>60) Est GFR (Non-Af Amer) 63.2 (>60) BUN/Creatinine Ratio 9.2 (8-20) Glucose 109 H (70-100) mg/dL Lactic Acid (0.5-2.0) mmol/L Calcium 9.2 (8.6-10.3) mg/dL Total Bilirubin 0.90 (0.2-1.0) mg/dL AST 34 (13-39) U/L ALT 24 (7-52) U/L Alkaline Phosphatase 91 (34-104) U/L Troponin I 0.01 (<0.04) ng/mL B-Natriuretic Peptide 97 ( - 100) pg/mL Total Protein 6.6 (6.4-8.9) g/dL Albumin 4.3 (3.2-5.2) g/dL Globulin 2.3 (2-4) g/dL Albumin/Globulin Ratio 1.9 (1-3) 09/27/17 09/27/17 Range/Units 15:27 15:27 WBC (3.5-10.8) 10^3/ul RBC (4.0-5.4) 10^6/ul Hgb (14.0-18.0) g/dl Hct (42-52) % MCV (80-94) fL MCH (27-31) pg MCHC (31-36) g/dl RDW (10.5-15) % Plt Count (150-450) 10^3/ul MPV (7.4-10.4) um3 Neut % (Auto) (38-83) % Lymph % (Auto) (25-47) % [place] % (Auto) (1-9) % Eos % (Auto) (0-6) % Baso % (Auto) (0-2) % Absolute Neuts (auto) (1.5-7.7) 10^3/ul Absolute Lymphs (auto) (1.0-4.8) 10^3/ul Absolute Monos (auto) (0-0.8) 10^3/ul Absolute Eos (auto) (0-0.6) 10^3/ul Absolute Basos (auto) (0-0.2) 10^3/ul Absolute Nucleated RBC 10^3/ul Nucleated RBC % INR (Anticoag Therapy) 0.92 (0.77-1.02) Sodium (133-145) mmol/L Potassium (3.5-5.0) mmol/L Chloride (101-111) mmol/L Carbon Dioxide (22-32) mmol/L Anion Gap (2-11) mmol/L BUN (6-24) mg/dL Creatinine (0.67-1.17) mg/dL Est GFR ( Amer) (>60) Est GFR (Non-Af Amer) (>60) BUN/Creatinine Ratio (8-20) Glucose (70-100) mg/dL Lactic Acid 1.6 (0.5-2.0) mmol/L Calcium (8.6-10.3) mg/dL Total Bilirubin (0.2-1.0) mg/dL AST (13-39) U/L ALT (7-52) U/L Alkaline Phosphatase (34-104) U/L Troponin I (<0.04) ng/mL B-Natriuretic Peptide ( - 100) pg/mL Total Protein (6.4-8.9) g/dL Albumin (3.2-5.2) g/dL Globulin (2-4) g/dL Albumin/Globulin Ratio (1-3) Assess/Plan/Problems-Billing Mr Yen is a 56 yo M who has a h/o COPD and past tobacco abuse who presented to the ER with c/o SOB and was admitted for a COPD exacerbation. - Patient Problems (1) COPD exacerbation Current Visit: Yes Status: Acute Code(s): J44.1 - CHRONIC OBSTRUCTIVE PULMONARY DISEASE W (ACUTE) EXACERBATION SNOMED Code(s): 752202935016087 Comment: Continue azithromycin x 4 more days and prednisone taper. Will have the patient's Abx, steroids and albuterol neb Rx sent to [place] [facility] [place] be filled prior to d/c. (2) Hypertension Current Visit: Yes Status: Acute Code(s): I10 - ESSENTIAL (PRIMARY) HYPERTENSION SNOMED Code(s): 59955550 Comment: Excellent control. Continue current medication regimen. (3) Atrial fibrillation Current Visit: Yes Status: Chronic Code(s): I48.91 - UNSPECIFIED ATRIAL FIBRILLATION SNOMED Code(s): 80876852 Comment: The patient has a h/o paroxysmal Afib. Currently sounds to be regular. Continue metoprolol. (4) DVT prophylaxis Current Visit: Yes Status: Acute Onset Date: 12/26/14 Code(s): OTO9466 - SNOMED Code(s): 897595232 Comment: SQ heparin (5) Full code status Current Visit: Yes Status: Acute Onset Date: 12/26/14 Code(s): Z78.9 - OTHER SPECIFIED HEALTH STATUS SNOMED Code(s): 505904780 Status and Disposition: d/c pt home
[2017-09-29 14:20] VITALS: BP 118/69
--- NOTE | 2017-09-30 10:16 | DS ---
CC: Dr. Heredia * DISCHARGE SUMMARY: DATE OF ADMISSION: 09/27/17 DATE OF DISCHARGE: 09/29/17 PRIMARY CARE PROVIDER: Dr. Heredia. PRINCIPAL DIAGNOSIS: Chronic obstructive pulmonary disease exacerbation. SECONDARY DIAGNOSES: 1. Hypertension. 2. Paroxysmal atrial fibrillation. 3. History of ulcerative colitis. DISCHARGE MEDICATIONS: 1. Albuterol 2 puffs inhaled q.6 hours p.r.n. shortness of breath. 2. Serevent Diskus 1 puff inhaled twice daily. 3. Metoprolol XL 100 mg p.o. daily. 4. Flovent Diskus 250 mcg 1 puff inhaled twice daily. 5. Chloraseptic lozenge, 1 lozenge p.o. q.6 hours p.r.n. sore throat. 6. Amlodipine 5 mg p.o. daily. 7. Prednisone 40 mg p.o. daily x2 days, and 30 mg p.o. daily x2 days, and 20 mg p.o. daily x2 days, and 10 mg p.o. daily x2 days. 8. Azithromycin 250 mg p.o. daily x4 days. 9. Albuterol neb, 1 neb inhaled q.4 hours p.r.n. shortness of breath. HISTORY OF PRESENT ILLNESS: Mr. Yen is a 56-year-old male, who is well known to the hospitalist service from multiple previous hospitalizations, who presents to the emergency room with complaints of shortness of breath. The patient has a longstanding history of tobacco abuse, quitting approximately 1 year ago, and a history of COPD. The patient was admitted for presumed COPD exacerbation. The patient was started on nebulizer treatment, Solu-Medrol, and azithromycin. The patient has improved over the course of the last 2 days. He is up and ambulating without any oxygen. At this point, it is felt that the patient is stable for discharge home. The patient will continue on azithromycin 250 mg daily for another 4 days, a short prednisone taper, and nebulizer therapy. Of note, the patient states that he would have ordinarily a difficult time obtaining his medications. I do question if that may have led to his frequent re-hospitalizations. The patient has been provided his medications on discharge to the [id number]. Social Work has been involved with this patient during this hospitalization as he is a high utilizer of hospital services. A followup appointment has been scheduled for the patient with Dr. Heredia for 10/14/17 at 2:20 p.m. As this is a couple of weeks out from discharge, Dr. Heredia's nurse will get a hold of the patient in the next couple of days to see if he can be scheduled sooner. FOLLOWUP CONCERNS: The patient is being discharged home today, 09/29/17. ACTIVITY LEVEL: As tolerated. DIET: Regular. CONDITION ON DISCHARGE: Stable. TIME SPENT: Thirty-five minutes was spent discharging this patient. [id number]/[facility] #: [id number] MTDD
== END 2017-09-29 14:50 | disposition home or self-care (01) | DRG 140 ==
LOC: ED 14:18 → MED 17:32 → OBSVTOIN 09-28 17:36
PROVIDERS: ADMIT Internal Medicine; ATTEND Hospitalist
DX: J44.1 Chronic obstructive pulmonary disease with (acute) exacerbation (principal); K51.90 Ulcerative colitis, unspecified, without complications; I48.0 Paroxysmal atrial fibrillation; E86.0 Dehydration; B19.20 Unspecified viral hepatitis C without hepatic coma; I10 Essential (primary) hypertension; Z87.891 Personal history of nicotine dependence; Z93.3 Colostomy status; Z88.1 Allergy status to other antibiotic agents; Z86.711 Personal history of pulmonary embolism
CPT/HCPCS: 36415; 71046; 80048; 80053; 83605; 83880; 84484; 85025; 85610; 87040; 93005; 94640; 96374; 99283; A9270-GY; G0378; J0456; J1644; J2920; J2930

== ENCOUNTER 2017-10-14 12:28 | Emergency (ER) | payer OTHER ==
[2017-10-14] MEDS ORDERED: Albuterol 0.5% CONC NEB.SOL* 5 MG/ML 20 ml BOT INH ONE (12:32)
[2017-10-14] MEDS ORDERED: Ipratropium 0.5MG/2.5ML NEB* 0.5 MG/2.5 ML NEB.SOLN INH ONE (12:33)
[2017-10-14] MEDS ORDERED: methylPREDNISolone 125 MG* 2 ML VIAL IV ONE (12:39)
[2017-10-14] MEDS ORDERED: Albuterol/Ipratropium NEB.SOL* Albuterol 2.5 MG/Ipratropium 0.5 MG 3 ML INH ONE ×3 (12:43→14:59)
--- NOTE | 2017-10-14 13:25 | RAD ---
HISTORY: Cough COMPARISONS: September 28, 2017 VIEWS: 1: frontal portable view of the chest at 1:00 PM FINDINGS: LINES AND TUBES: None. CARDIOMEDIASTINAL SILHOUETTE: The cardiomediastinal silhouette is normal for portable technique. PLEURA: The costophrenic angles are sharp. No pleural abnormalities are noted. LUNG PARENCHYMA: There is hyperinflation with emphysematous change. ABDOMEN: The upper abdomen is clear. There is no subphrenic gas. BONES AND SOFT TISSUES: No bone or soft tissue abnormalities are noted. IMPRESSION: COPD
[2017-10-14] MEDS ORDERED: Albuterol/Ipratropium NEB.SOL* Albuterol 2.5 MG/Ipratropium 0.5 MG 3 ML ONE (14:08)
[2017-10-14 14:18] LABS: ABS Basophils 0 10^3/ul (0-0.2); ABS Eosinophils 0.4 10^3/ul (0-0.6); ABS Lymphocytes 0.4 10^3/ul (1.0-4.8); ABS Monocytes 0.9 10^3/ul (0-0.8); ABS Neutrophils 6.8 10^3/ul (1.5-7.7); ABS Nucleated RBC 0 10^3/ul; Eosinophil % 4.6 % (0-6); Hematocrit 45 % (42-52); Hemoglobin 15.4 g/dl (14.0-18.0); Mean Corpuscular HGB Conc 34 g/dl (31-36); Mean Corpuscular Hemoglobin 33 pg (27-31); Mean Corpuscular Volume 98 fL (80-94); Mean Platelet Volume 8 um3 (7.4-10.4); Nucleated Red Blood Cells % 0; Platelet Count 153 10^3/ul (150-450); Red Blood Count 4.63 10^6/ul (4.0-5.4); Red Cell Distribution Width 14 % (10.5-15); White Blood Count 8.6 10^3/ul (3.5-10.8)
[2017-10-14 14:41] LABS: EGFR Non-African American 118.6 (>60)
[2017-10-14 17:19] VITALS: BP 110/73
--- NOTE | 2017-10-14 20:52 | CONS ---
CC: Dr. Heredia; Dr. Garcia * CONSULTATION REPORT: DATE OF CONSULT: 10/14/17 - EMERGENCY DEPT PRIMARY CARE PROVIDER: Dr. Heredia. REQUESTING PHYSICIAN: Consultation requested by Dr. Garcia from emergency department. CHIEF COMPLAINT: Shortness of breath. HISTORY OF PRESENT ILLNESS: Ozzie Yen is a 56-year-old male known well to us from prior hospitalization just a week and a half ago, who presented complaining of shortness of breath. The patient stated that he had nebulizer twice in the morning and feels better. While in the emergency department, when he came in after work, when he got short of breath, he got nebulizer treatments and a dose of Solu- Medrol 125 mg total. Currently, the patient is pleasant, comfortable with oxygen saturation of 95% on room air. Consultation was requested by Dr. Garcia with possibility of admission. PAST MEDICAL HISTORY: 1. COPD, not on oxygen. 2. History of paroxysmal atrial fibrillation, which resolved in August 2017. The patient's CHADS score was 1, anticoagulation was not recommended. 3. History of ulcerative colitis, status post colectomy and colostomy in 2012. 4. History of hepatitis C. CURRENT MEDICATIONS: Include: 1. DuoNeb nebulizers on a p.r.n. basis. 2. Mag-Ox 400 mg daily. 3. Norvasc 5 mg daily. 4. Albuterol inhaler on a p.r.n. basis. 5. Salmeterol Diskus 1 puff b.i.d. 6. Metoprolol succinate 100 mg daily. 7. Flovent 250 mcg 1 puff b.i.d. FAMILY HISTORY: Unknown. The patient is adopted. 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 The patient has a history of [id number] smoking. He drinks 1 to 2 beers a day. He does not have a surrogate decision maker. REVIEW OF SYSTEMS: Positive for wheezing and shortness of breath and dry cough. Negative for fevers, negative for productive cough. His weight has been stable. All the remaining 12 systems were reviewed with the patient and were otherwise negative. PHYSICAL EXAM: Blood pressure of 131/97, heart rate of 82 and regular, respiratory rate 16, oxygen saturation 94% on room air, temperature 98.6. General: The patient is a very pleasant 56-year-old female who is in no acute distress. Alert, awake, and oriented x3. HEENT: Head atraumatic, normocephalic. Eyes: Pupils are equal, round, and reactive to light and accommodation. Oropharynx clear. Mucosa moist. Neck: Supple. No JVD, no bruits bilaterally. Cardiovascular: Regular rate and rhythm. No murmur. Respiratory: Diffuse wheezes in bilateral mid lung key. Abdomen: Soft and nontender. Bowel sounds present in all 4 quadrants. Extremities: There is no edema. Pulses are +2 bilaterally. No clubbing or cyanosis. Neuro evaluation: Speech is clear. Cranial nerves II through XII grossly intact. Motor strength is 5/5 bilaterally. DIAGNOSTIC STUDIES/LAB DATA: Showed white blood cell count of 8.6, hemoglobin of 15.4, hematocrit of 45, MCV of 98, and platelets of 153,000. Sodium was 132 , potassium 4.0, chloride 101, carbon dioxide 26, BUN 80, creatinine 0.69. Liver function tests are unremarkable. Portable chest x-ray showed "COPD." ASSESSMENT AND PLAN: A 56-year-old male who presents with chronic obstructive pulmonary disease exacerbation. The patient has no increased work of breathing on evaluation. His auscultatory sounds are much improved from when I saw the patient admission. His oxygen saturation is 95% on room air. At this point, I do not believe the patient needs to be hospitalized. The patient has already nebulizer treatment and inhalers to use at home. I spoke with the ER provider to provide the patient with steroid taper at discharge. The patient is to follow up with his primary care provider in 4 to 7 days. Thank you very much for allowing me to see your patient in consultation. TIME SPENT: Approximately 55 minutes was spent on this patient's consultation. [id number]/[facility] #: [id number] ELIUD
--- NOTE | 2017-10-14 23:17 | ED ---
Dennis Rosenberg Jason, scribed for Dimitrios Garcia MD on 10/14/17 at 1305 . Shortness of Breath - HPI Summary HPI Summary: This patient is a 56 year old M presenting to [facility] with a chief complaint of SOB since 1200 today. The patient states that he has been experiencing SOB all winter but as of 1200 on his walk to work he experienced increased SOB. He includes that he had a nebulizer treatment at 0600 and 0930 today, and that he was admitted to [facility] for PNA 2 weeks ago. 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 Patient states he feels better but has difficulty breathing. The patient rates the pain 0/10 in severity. Symptoms aggravated by nothing. Symptoms alleviated by duoneb. Patient reports nasal discharge, productive cough , and chest tightness. Patient denies chest pain. - History of Current Complaint Chief Complaint: EDShortnessOfBreath Time Seen by Provider: 10/14/17 12:31 Hx Obtained From: Patient Onset/Duration: Gradual Onset, Lasting Weeks - "all winter", Still Present, Worse Since - today at 1200 Current Severity: Mild Dyspnea At: Exertion Aggrevating Factors: Other - cold weather Alleviating Factors: Bronchodilators, Nothing Associated Signs & Symptoms: Cough (Productive), Nasal Congestion - Allergy/Home Medications Allergies/Adverse Reactions: Allergies Allergy/AdvReac Type Severity Reaction Status Date / Time Ciprofloxacin Allergy Itching Verified 07/18/17 06:38 Home Medications: Home Medications Magnesium Oxide TAB* [MagOx 400 TAB*] 400 mg PO DAILY 10/14/17 [History Confirmed 10/14/17] PMH/Surg Hx/FS Hx/Imm Hx Previously Healthy: No Endocrine/Hematology History: Denies: Hx Anticoagulant Therapy, Hx Diabetes, Hx Systemic Lupus Erythematosus, Hx Thyroid Disease Cardiovascular History: Reports: Hx Atrial Fibrillation - no anticoagulants used currently, Hx Hypertension Denies: Hx Congestive Heart Failure, Hx Deep Vein Thrombosis, Hx Myocardial Infarction, Hx Pacemaker/ICD Comment Only: Other Cardiovascular Problems/Disorders - A FIB Respiratory History: Reports: Hx Asthma, Hx Chronic Obstructive Pulmonary Disease (COPD), Other Respiratory Problems/Disorders - PNA Denies: Hx Lung Cancer, Hx Pneumonia, Hx Pulmonary Embolism GI History: Reports: Hx Gastrointestinal Bleed, Hx Obstructive Bowel, Hx Ileostomy - colostomy 2012, Other GI Disorders - colostomy Denies: Hx Gall Bladder Disease, Hx Ulcer, Hx Urosepsis History: Denies: Hx Kidney Stones, Hx Renal Disease Musculoskeletal History: Reports: Hx Orthopedic Injury - surgeries in both knees Denies: Hx Arthritis, Hx Rheumatoid Arthritis, Hx Osteoporosis Sensory History: Reports: Hx Contacts or Glasses Denies: Hx Hearing Aid, Other Sensory Impairments Opthamlomology History: Reports: Hx Contacts or Glasses Denies: Other Sensory Impairments Neurological History: Denies: Hx Dementia, Hx Migraine, Hx Seizures, Hx Transient Ischemic Attacks (TIA) Psychiatric History: Denies: Hx Anxiety, Hx Depression, Hx Schizophrenia, Hx Bipolar Disorder - Cancer History Hx Chemotherapy: No - Surgical History Surgery Procedure, Year, and Place: COLECTOMY FOR ULCERATIVE COLITIS AT [facility] - has ostomy now 12/2012; bilat knees for cartilage. Tonsils Hx Anesthesia Reactions: No - Immunization History Date of Influenza Vaccine: 06/07/16 Infectious Disease History: No Infectious Disease History: Reports: Hx Hepatitis - hep c Denies: Hx Clostridium Difficile, Hx Human Immunodeficiency Virus (HIV), Hx of Known/Suspected MRSA, Hx Shingles, Hx Tuberculosis, Hx Known/Suspected VRE, Hx Known/Suspected VRSA, History Other Infectious Disease, Traveled Outside the [place] in Last 30 Days - Family History Known Family History: Positive: Unknown - Patient is adopted, family history is unknown., Hypertension, Respiratory Disease, Other - adopted - Social History Alcohol Use: Occasionally Alcohol Amount: 2 Hx Substance Use: No Substance Use Type: Reports: None Hx Tobacco Use: Yes Smoking Status (MU): Former Smoker Type: Cigarettes Amount Used/How Often: 1/2 ppd Length of Time of Smoking/Using Tobacco: 40 years Have You Smoked in the Last Year: Yes Review of Systems Positive: Nasal Discharge Positive: Other - chest tightness. Negative: Chest Pain Positive: Shortness Of Breath, Cough - productive All Other Systems Reviewed And Are Negative: Yes Physical Exam - Summary Physical Exam Summary: Appearance: Well-appearing, no distress, Well-nourished Skin: Warm, color reflects adequate perfusion Head: Normal Head/Face inspection Eyes: Conjunctiva clear ENT: Normal inspection Neck: Supple, no nodes, no JVD. Respiratory: prolonged expirations, diffuse wheezing, no respiratory distress, mild supraclavicular accessory muscle use Cardio: RRR, No murmur, pulses normal, brisk capillary refill Abdomen: soft, nontender, no guarding, no rebound Bowel sounds: present Musculoskeletal: Strength Intact/ ROM intact. No calf tenderness. No edema. Neuro: Alert, muscle tone normal, facial symmetry, speech normal, sensory/motor intact Psychological: Normal Triage Information Reviewed: Yes Vital Signs On Initial Exam: Initial Vitals Temp Pulse Resp BP Pulse Ox 98.6 F 95 23 131/97 99 10/14/17 12:33 10/14/17 12:33 10/14/17 12:33 10/14/17 12:33 10/14/17 12:33 Vital Signs Reviewed: Yes Diagnostics - Vital Signs Vital Signs Temp Pulse Resp BP Pulse Ox 10/14/17 12:49 94 17 95 10/14/17 12:33 98.6 F 95 23 131/97 99 - Laboratory Lab Results: Lab Results 10/14/17 Range/Units 14:04 WBC 8.6 (3.5-10.8) 10^3/ul RBC 4.63 (4.0-5.4) 10^6/ul Hgb 15.4 (14.0-18.0) g/dl Hct 45 (42-52) % MCV 98 H (80-94) fL MCH 33 H (27-31) pg MCHC 34 (31-36) g/dl RDW 14 (10.5-15) % Plt Count 153 (150-450) 10^3/ul MPV 8 (7.4-10.4) um3 Neut % (Auto) 79.3 (38-83) % Lymph % (Auto) 5.0 L (25-47) % [place] % (Auto) 10.7 H (1-9) % Eos % (Auto) 4.6 (0-6) % Baso % (Auto) 0.4 (0-2) % Absolute Neuts (auto) 6.8 (1.5-7.7) 10^3/ul Absolute Lymphs (auto) 0.4 L (1.0-4.8) 10^3/ul Absolute Monos (auto) 0.9 H (0-0.8) 10^3/ul Absolute Eos (auto) 0.4 (0-0.6) 10^3/ul Absolute Basos (auto) 0 (0-0.2) 10^3/ul Absolute Nucleated RBC 0 10^3/ul Nucleated RBC % 0 Result Diagrams: 10/14/17 14:04 10/14/17 14:04 Lab Statement: Any lab studies that have been ordered have been reviewed, and results considered in the medical decision making process. - Radiology CXR Radiology Interpretation Completed By: Radiologist - CXR reveals, per radiologist, COPD. ED physician has reviewed this radiology report. Re-Evaluation - Re-Evaluation First Eval Re-Evaluation Time: 14:36 Change: Improved Comment: Pt wheezing improved with albuterol nebs x 2; pt symptomatically improved. pt O2 sats 95-97% on RA. Will conttinue to monitor. Second Eval Re-Evaluation Time: 16:23 Change: Improved - On ambulation in the ED, pty continues to have some SOB, with lightheadedness and mild diffuse wheezing. pt O2 SAT 93-95% on RA; pt with no respiratory distress. Plan for possible admission for further tx. accessory muscle use resolved. Third Eval Re-Evaluation Time: 17:01 Change: Improved - Pt seen and examind by Dr. Mckeon who knows pt well. Plan for d /c with oral prednisone, continuous home meds, and PCP f/u Course/Dx - Course Course Of Treatment: In the ED course the patient was given IV fluids, albuterol and ipratropium, and provided with inhalation treatment therapy. CXR reveals, per radiologist, COPD. After C[facility]ED treatment patient is resting comfortably in the bed. Assessment/Plan: We discussed patient care with Dr. Mckeon and they recommended that the patient be discharged home. The patient is agreeable with this plan. - Diagnoses Differential Diagnosis/HQI/PQRI: Positive: Airway Obstruction, Asthma, Bronchitis, CHF, COPD Exacerbation, Pneumonia, Pneumothorax, Pulmonary Embolism , Pulmonary Edema, Unstable Angina Provider Diagnoses: COPD exacerbation - Physician Notifications Discussed Care of Patient With: Preethi Mckeon Time Discussed With Above Provider: 16:15 Instructed by Provider To: Will See In ED Discharge - Discharge Plan Condition: Improved Disposition: HOME Prescriptions: predniSONE TAB* [Deltasone TAB*] 60 mg PO DAILY #15 tab Patient Education Materials: COPD (Chronic Obstructive Pulmonary Disease) (ED) Referrals: Allyn Heredia MD [Primary Care Provider] - 2 Days Additional Instructions: Please continue to use your albuterol every 2-4 hours as need, and continue oral prednisone as prescribed. Please return to the ED if symptoms worsen or do not improve. The documentation as recorded by the Dennis rangel Jason accurately reflects the service I personally performed and the decisions made by , Dimitrios Garcia MD.
== END 2017-10-14 17:18 | disposition home or self-care (01) ==
LOC: ED 12:28
DX: J44.1 Chronic obstructive pulmonary disease with (acute) exacerbation (principal); R05 Cough; R09.81 Nasal congestion; Z87.891 Personal history of nicotine dependence
CPT/HCPCS: 36415; 71045; 80053; 85025; 94640; 96374; 99283; A9270-GY; J2930

== ENCOUNTER 2017-10-30 08:03 | Inpatient (IN) | payer OTHER ==
[2017-10-30] MEDS ORDERED: NS 0.9% 1000 ML* 1,000 ML IV ONE (08:08)
[2017-10-30] MEDS ORDERED: methylPREDNISolone 125 MG* 2 ML VIAL IV ONE (08:08)
[2017-10-30] MEDS ORDERED: Diltiazem IV VIAL* 125 MG/25 ML VIAL ONE (08:12)
[2017-10-30] MEDS ORDERED: LORazepam INJ* 2 MG/ML 1 ML VIAL ONE (08:14)
[2017-10-30] MEDS ORDERED: fentaNYL* 50 MCG/ML 2 ML VIAL (100 MCG VIAL) ONE (08:21)
[2017-10-30] MEDS ORDERED: Midazolam* 1 MG/ML 5 ML VIAL (5 MG) ONE (08:22)
[2017-10-30] MEDS ORDERED: Digoxin IV* 0.5 MG/2 ML AMP (0.25 MG/ML) ONE (08:23)
[2017-10-30] MEDS ORDERED: LORazepam INJ* 2 MG/ML 1 ML VIAL IV PUSH ONE (08:24)
[2017-10-30] MEDS ORDERED: Digoxin IV* 0.5 MG/2 ML AMP (0.25 MG/ML) IV SLOW PU ONE ×2 (08:25→12:35)
[2017-10-30 08:29] LABS: Hematocrit 43 % (42-52); Hemoglobin 14.5 g/dl (14.0-18.0); Mean Corpuscular HGB Conc 34 g/dl (31-36); Mean Corpuscular Hemoglobin 33 pg (27-31); Mean Corpuscular Volume 97 fL (80-94); Mean Platelet Volume 9 um3 (7.4-10.4); Platelet Count 224 10^3/ul (150-450); Red Cell Distribution Width 14 % (10.5-15); White Blood Count 17.9 10^3/ul (3.5-10.8)
[2017-10-30] MEDS ORDERED: cefTRIAXone VIAL(*) 1,000 MG VIAL ONE (08:32)
[2017-10-30] MEDS ORDERED: cefTRIAXone(*) 1 GM ADVAN/BAG ONE (08:33)
[2017-10-30] MEDS ORDERED: cefTRIAXone(*) 1 GM in NS 0.9% 50 ML* 50 ML IVPB ONE (08:36)
[2017-10-30 08:38] LABS: INR 0.9 (0.77-1.02)
[2017-10-30 08:39] LABS: EGFR Non-African American 95.8 (>60)
[2017-10-30] MEDS ORDERED: Metoprolol Tartrate IV* 1 MG/ML 5 ML VIAL IV ONE ×3 (08:40→17:35)
[2017-10-30 08:53] LABS: ABS Basophils 0 10^3/ul (0-0.2); ABS Eosinophils 0.1 10^3/ul (0-0.6); ABS Lymphocytes 1.1 10^3/ul (1.0-4.8); ABS Monocytes 1.9 10^3/ul (0-0.8); ABS Neutrophils 14.8 10^3/ul (1.5-7.7); ABS Nucleated RBC 0 10^3/ul; Eosinophil % 0.4 % (0-6); Lymphocyte % 5.9 % (25-47); Nucleated Red Blood Cells % 0
--- NOTE | 2017-10-30 08:55 | RAD ---
INDICATION: Shortness of breath COMPARISON: Chest x-ray dated October 14, 2017 TECHNIQUE: Single AP portable view of the chest was obtained. FINDINGS: Image quality is compromised due to the relative inferiority of a portable chest x-ray. Automatic external defibrillator pads are overlying the chest. The heart and mediastinum exhibit normal size and contour. The pulmonary vasculature appears to be engorged and indistinct. There is no focal or lobar consolidation. Visualized bones are normal for the patient's age. IMPRESSION: Chest x-ray appearance is most consistent with interval development of pulmonary vascular congestion.
[2017-10-30] MEDS ORDERED: Diltiazem IV* 5 MG/ML 5 ML VIAL (for loading dose/IV Push) (25 MG) IV SLOW PU ONE ×2 (08:56)
[2017-10-30] MEDS ORDERED: Diltiazem DRIP* 100 MG/100 ML ADDV.BAG IVPB SCH (09:00)
[2017-10-30] MEDS ORDERED: Diltiazem IV VIAL* 125 MG in NS 0.9% 100 ML* 100 ML IV SCH ×2 (09:00→12:00)
[2017-10-30] MEDS ORDERED: Albuterol/Ipratropium NEB.SOL* Albuterol 2.5 MG/Ipratropium 0.5 MG 3 ML INH ONE ×2 (09:01→09:37)
[2017-10-30] MEDS: Digoxin IV* 0.5 MG/2 ML AMP (0.25 MG/ML) IV SLOW PU ONE ×2 (09:07→09:27)
[2017-10-30] MEDS: NS 0.9% 1000 ML* 2,000 ML IV ONE (09:29)
[2017-10-30] MEDS ORDERED: Morphine INJ* 2 MG/ML 1 ML CARPUJECT IV ONE (09:54)
[2017-10-30] MEDS ORDERED: Morphine INJ* 2 MG/ML 1 ML CARPUJECT ONE (09:54)
[2017-10-30] MEDS ORDERED: Morphine INJ* 10 MG/ML 1 ML CARPUJECT IV ONE ×2 (11:31→11:54)
[2017-10-30] MEDS ORDERED: Morphine INJ* 10 MG/ML 1 ML CARPUJECT ONE (11:33)
[2017-10-30] MEDS ORDERED: Azithromycin IV(*) 500 MG in NS 0.9% 250 ML* 250 ML IVPB SCH (12:00)
[2017-10-30] MEDS: LORazepam INJ* 2 MG/ML 1 ML VIAL IV PUSH PRN (12:24)
[2017-10-30] MEDS ORDERED: Metoprolol Tartrate IV* 1 MG/ML 5 ML VIAL ONE (13:15)
--- NOTE | 2017-10-30 14:23 | HP ---
H&P (Free Text) History and Physical: CRITICAL CARE MEDICINE DATE: 10/30/17 TIME: 1045 PRIMARY CARE PROVIDER: Monica REFERRING PROVIDER: Marcelino REASON/CHIEF COMPLAINT: sob HISTORY OF PRESENT ILLNESS: 56 M, h/o afib not on anticoag, moderate severe emphysema and previous exacerbations presenting after awaking this am with sweats, chest tightness and sob. present to ED labored but sating well with afib rvr and rates towards to 200. Tx in for afib rvr ED and placed on HFO2. REVIEW OF SYSTEMS: As per HPI. Hasn't been too bad lately. No fever. just woke up this am like never before. PAST MEDICAL HISTORY: As per HPI. h/o UC, h/o Hep C MEDICATIONS: Reviewed. ALLERGIES: cipro SOCIAL HISTORY: Reviewed. 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 FAMILY HISTORY: Noncontributory at present. PHYSICAL EXAM: Vital Signs: Reviewed. HR into 160s irr irr. RR 30s with forced exhalation. Neurologic: awake, comm, holds capacity; nonfocal HEENT: little injected sclera. Cardiovascular: distant, irr irr Respiratory: tight bl with prolonged exhalation wheeze. Abdomen: soft, excessory musc use Extremities: warm, chronic changes; 2 sec cap refill Access: piv LABS: Reviewed. IMAGING: Reviewed. CXR with right sided airspace disease. likely aspiration vs more u/l diastolic fluid MEDICATIONS: Reviewed. ASSESSMENT: 56 M Acute hypercarbic > hypoxic resp failure COPD exaccerabation Aspiration pneumonitis Afib with rvr on chronic pafib r/o sepsis PLAN: Neurologic: tolerating but explained to him need for anxiloytics or better yet morphine to allow flow phases Cardiovascular: perfusing. not vol overload but risk for diastolic failure given rates. given cardizem and dig already. keep cardizem gtt and see if with better resp dynamcis his hr can come down and may need to resume his bb despite copd exac. T neg. Need to control rate. Respiratory: seems like exac trigger but nocturnal aspiration initially. tx for cap on admission but not appearing septic and doubt this is infectious driven. copd adjunctives and nebs and see if we can allow better flow phases with HFO2. Not likely to respond well to bipap at the moment as his exacerbation seems more status asthmatics like and allowing him to dictate the flow and Itime is better. if he need to become or becomes too sedate then consider bipap support. Gastrointestinal: po later. H2 at night to prevent gerd triggers. f/u lfts Renal/Metabolic: stable. f/u needs Infectious Disease: C3 given. azithro added and can likely just use azithro as antiinflammatory benefit with copd exac Hematology: stable. hsq Endocrine: steroids. Musculoskeletal: oob later. Psych/Social: pt expressed understanding of plans. Supportive and preventative care as ordered. SUP: H2 VTE prophylaxis: lovenox Disposition: ICU Code Status: Full Critical Care Time: 45min FOsmani Beauchamp DO
[2017-10-30] MEDS ORDERED: methylPREDNISolone SOD 40 MG* 1 ML VIAL IV SCH (15:00)
[2017-10-30] MEDS: methylPREDNISolone SOD 40 MG* 1 ML VIAL IV SCH (15:48)
[2017-10-30] MEDS: Enoxaparin(*) 40 MG/0.4 ML SYR SUBCUT SCH (15:48)
--- NOTE | 2017-10-30 15:59 | CONS ---
CC: Kush Dickens MD; Dr. Kennedy CARDIOLOGY CONSULTATION: DATE OF CONSULT: 10/30/17 CONSULTING PROVIDER: Dr. Bensno REASON FOR CONSULT: AFib with a rapid ventricular response. HISTORY OF PRESENT ILLNESS: This is a 56-year-old gentleman with history of COPD, paroxysmal atrial fibrillation and noncompliance. He also has a history of ulcerative colitis, status post ileostomy. He was recently hospitalized in August and last month for chest pain and COPD exacerbation. He wa s seen in July; he was in AFib and converted with IV diltiazem after several hours. He had an ec ho, which raised the possibility of a mildly reduced LV function and possibly tachycardia induced, al cohol related. He had hospitalization for COPD exacerbation from 09/27/17 to 09/29/17. He was disch arged on 09/29/17 on albuterol, Serevent, metoprolol XL 100 mg a day, amlodipine 5 mg a day, predniso ne taper, azithromycin, and albuterol nebs. He said he was in usual state of health with his chronic nonproductive cough until this morning. He woke up and had cold sweats, chills, and when he stood u p, he felt weak and markedly short of breath. When he came to the emergency room, he was noted to be in AFib with a rapid ventricular response. He was treated with IV diltiazem, IV digoxin, oxygen, and nebulizer with some improvement in his situation. Blood pressure currently is approximately 109. H is O2 sats are approximately 95%. He says he is achy all over his chest, but no specific focal chest discomfort. He denies diarrhea. He said that he has been followed by Dr. Rothman and had been on X arelto until about 6 months ago when developed some blood in his ileostomy bag and his Xarelto was st opped. He has a GI evaluation pending. He denies orthopnea or peripheral edema, although today he f elt like he had to sit up to be comfortable. He does have a history of tobacco use, 41 years, half p ack per day, discontinued 1 year ago. He also has a history of alcohol use, two alcoholic beverages a day, vodka and tequila. PAST MEDICAL HISTORY: Includes; 1. Paroxysmal atrial fibrillation over the last 2 years. 2. Ulcerative colitis. 3. Hypertension. 4. COPD. PAST SURGICAL HISTORY: Includes the ileostomy as well as arthroscopic surgery on both knees. SOCIAL HISTORY: He drinks one cup of caffeinated coffee a day. Two alcoholic beverages a day. He i s single. No children. 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 He is estranged from his brother, his father; his tash dayanats recently. His father in [place]. His mother in a motor vehicle accident. He d enies any recreational drug use, specifically cocaine or marijuana. MEDICATIONS: He reports compliance with medications, although in the past there has been some questi on as to noncompliance. His outpatient medications include; 1. Mag oxide 400 mg a day. 2. Albuterol inhaler 2 puffs q.6h. p.r.n. 3. Flovent 1 b.i.d. 4. Prednisone 20 mg a day. 5. Amlodipine 5 mg a day. 6. Metoprolol XL 100 mg a day. As an inpatient, he is on 1. Diltiazem drip at 5 mg an hour. 2. He has received 2.5 mg of IV Lopressor and 0.125 mg of metoprolol IV. 3. He is also on oxygen. REVIEW OF SYSTEMS: Review of systems x10 was negative except as above. PHYSICAL EXAM: He is a well-developed, thin frail-appearing gentleman, in moderate respiratory distr ess with prolonged expiratory phase with accessory muscle use. Atraumatic and normocephalic. Extraoc ular muscles are intact. Sclerae anicteric. Carotids are 2+ without bruits. No JVD. Cardiac: S1, S2 distant. Chest: Prolonged expiratory phase with scattered expiratory rhonchi. Poor air movement . Abdomen: Bowel sounds present, nontender with an ileostomy bag in the right lower quadrant. Femor al pulses intact without bruits. Distal pulses intact. No edema. Motor strength 5/5 bilaterally. D eep tendon reflexes 2/4. Alert and oriented x3. DIAGNOSTIC STUDIES/LAB DATA: White count elevated at 17.9, hemoglobin of 14.5, hematocrit of 43 and platelet count of 224. Sodium 134, potassium of 3.7, BUN of 13, creatinine of 0.83. Lactic acid of 2.1. AST of 75. ALT of 232, elevated. Troponin of 0.01. CRP of 4.58. BNP elevated at 668. Blood gases, 739, 38, 115. Chest x-ray by report and review appears pulmonary vascular congestion, more prominent in the right l ower lobe. EKG revealed atrial fibrillation with rapid ventricular response and diffuse lateral ST depressions. EKG from 08/30/17 revealed sinus bradycardia at 58 with left atrial enlargement and nonspecific ST c hanges. EKG from 08/28/17 at 11:58 revealed atrial fibrillation with rapid ventricular response and ST depressions. He did have an echocardiogram performed on 08/28/17, which revealed unable to estimat e LV ejection fraction, baseline AFib with rapid ventricular response, cannot exclude mildly reduced ejection fraction, mild left atrial enlargement, mild MR, physiologic TR, Definity contrast was used. Previous EF in October 2015 was 40% to 45%. IMPRESSION: Mr. Yen presents with acute decompensation due to fatigue and respiratory distress. He has leucocytosis as well as elevated BNP and possible infiltrate on his chest x-ray, raising the possibility of interval development of pulmonary infection or perhaps even the flu, associated with recurrent atrial fibrillation and rapid ventricular response. So far he seems to be responding to ne bulizers, oxygen, and attempt at rate control with diltiazem and IV beta- blockers. Although he clai ms he is taken his medications, he is a noncompliant in the past and I wonder if there is some degree of beta-reno control as well. For the time being, we discussed the possibility of a cardiovascul ar; however, given his lack of anticoagulation and his poor respiratory state, he would be at increas ed risk for complications including cardioembolic events and respiratory failure requiring intubation with conscious sedation and cardioversion. He also would be at high risk for recurrence of his atri al fibrillation given his ongoing pulmonary issues. For the time being, I would recommend the follow ing; 1. Would continue with antibiotics as you are doing. 2. Await results and we will treat aggressively if indeed he is positive with antivirals. 3. We will try to maintain his potassium over 4. 4. We will continue using digoxin and IV Lopressor and IV diltiazem as needed to control his heart r ate and as allowed by his blood pressure and respiratory status. 5. We would consider restarting anticoagulation and follow him for anemia. 6. I asked him to decrease caffeine and alcohol, which may be triggers. 7. The importance of compliance was stressed to the patient. 8. We would repeat an echo once he is converted to sinus rhythm. 9. We will check magnesium. 10. We will follow serial troponins. 11. The patient reports he has had a negative stress test in the past, although we do not have that results. He is to follow up with Dr. Kennedy as an outpatient and consider further evaluation with manager nursing home for more definitive control of his tachybrady syndrome. He might require pacema ker and attempts at ablation to more definitively prevent exacerbations. [id number]/[facility] #: [id number]
[2017-10-30] MEDS ORDERED: Metoprolol Tartrate TAB* 50 mg PO ONE (18:34)
[2017-10-30] MEDS: Famotidine TAB* 20 MG PO SCH (21:10)
[2017-10-30] MEDS: Mometasone 220 MCG MDI INH SCH (21:11)
[2017-10-30 23:17] LABS: Urine Appearance Cloudy; Urine Blood Negative (Negative); Urine Color Yellow; Urine Ketones Negative (Negative); Urine Protein 1+(30 mg/dL) (Negative); Urine Specific Gravity 1.018 (1.010-1.030); Urine Urobilinogen Negative (Negative)
[2017-10-31] MEDS: methylPREDNISolone SOD 40 MG* 1 ML VIAL IV SCH ×2 (00:15→09:22)
[2017-10-31] MEDS ORDERED: Diltiazem IV* 5 MG/ML 5 ML VIAL (for loading dose/IV Push) (25 MG) IV SLOW PU ONE (00:46)
[2017-10-31] MEDS ORDERED: Diltiazem IV VIAL* 125 MG/25 ML VIAL ONE ×2 (02:26→14:14)
[2017-10-31] MEDS: LORazepam INJ* 2 MG/ML 1 ML VIAL IV PUSH PRN (02:49)
[2017-10-31 05:48] LABS: ABS Basophils 0 10^3/ul (0-0.2); ABS Eosinophils 0 10^3/ul (0-0.6); ABS Lymphocytes 0.2 10^3/ul (1.0-4.8); ABS Monocytes 0.7 10^3/ul (0-0.8); ABS Neutrophils 17.4 10^3/ul (1.5-7.7); ABS Nucleated RBC 0 10^3/ul; Eosinophil % 0 % (0-6); Hematocrit 41 % (42-52); Hemoglobin 13.3 g/dl (14.0-18.0); Mean Corpuscular HGB Conc 33 g/dl (31-36); Mean Corpuscular Hemoglobin 33 pg (27-31); Mean Corpuscular Volume 100 fL (80-94); Mean Platelet Volume 8 um3 (7.4-10.4); Nucleated Red Blood Cells % 0; Platelet Count 171 10^3/ul (150-450); Red Blood Count 4.08 10^6/ul (4.0-5.4); Red Cell Distribution Width 14 % (10.5-15); White Blood Count 18.3 10^3/ul (3.5-10.8)
[2017-10-31] MEDS ORDERED: Metoprolol Tartrate IV* 1 MG/ML 5 ML VIAL IV ONE (08:49)
[2017-10-31] MEDS ORDERED: amLODIPine TAB* 5 MG PO SCH (09:00)
[2017-10-31] MEDS ORDERED: Metoprolol Succinate XL TAB* 100 MG PO SCH (09:00)
--- NOTE | 2017-10-31 09:12 | ED ---
Kervin Rosenberg Thomas, scribed for Francisco Benson MD on 10/30/17 at 0820 . Shortness of Breath - HPI Summary HPI Summary: The patient is a 56 year old male brought in by ambulance. He had cold sweats last night. This morning, he woke up with shortness of breath and chest pressure. Then, he noticed a lot of palpitations and called 911. The patient has a history of ulcerative colitis and COPD. He has a colostomy bag. - History of Current Complaint Chief Complaint: EDRespiratoryDistress Time Seen by Provider: 10/30/17 08:07 Hx Obtained From: Patient Onset/Duration: Lasting Hours - onset of sob this am, Still Present Timing: Constant Current Severity: Severe Dyspnea At: Rest Aggrevating Factors: Other - Unknown Alleviating Factors: Nothing - Allergy/Home Medications Allergies/Adverse Reactions: Allergies Allergy/AdvReac Type Severity Reaction Status Date / Time ciprofloxacin Allergy Itching Verified 10/30/17 08:32 PMH/Surg Hx/FS Hx/Imm Hx Endocrine/Hematology History: Denies: Hx Anticoagulant Therapy, Hx Diabetes, Hx Systemic Lupus Erythematosus, Hx Thyroid Disease Cardiovascular History: Reports: Hx Atrial Fibrillation - no anticoagulants used currently, Hx Hypertension Denies: Hx Congestive Heart Failure, Hx Deep Vein Thrombosis, Hx Myocardial Infarction, Hx Pacemaker/ICD Respiratory History: Reports: Hx Asthma, Hx Chronic Obstructive Pulmonary Disease (COPD), Other Respiratory Problems/Disorders - PNA Denies: Hx Lung Cancer, Hx Pneumonia, Hx Pulmonary Embolism GI History: Reports: Hx Gastrointestinal Bleed, Hx Obstructive Bowel, Hx Ileostomy - colostomy 2012, Other GI Disorders - colostomy, ulcerative colitis Denies: Hx Gall Bladder Disease, Hx Ulcer, Hx Urosepsis History: Denies: Hx Kidney Stones, Hx Renal Disease Musculoskeletal History: Reports: Hx Orthopedic Injury - surgeries in both knees Denies: Hx Arthritis, Hx Rheumatoid Arthritis, Hx Osteoporosis Sensory History: Reports: Hx Contacts or Glasses Denies: Hx Hearing Aid, Other Sensory Impairments Opthamlomology History: Reports: Hx Contacts or Glasses Denies: Other Sensory Impairments Neurological History: Denies: Hx Dementia, Hx Migraine, Hx Seizures, Hx Transient Ischemic Attacks (TIA) Psychiatric History: Denies: Hx Anxiety, Hx Depression, Hx Schizophrenia, Hx Bipolar Disorder - Cancer History Hx Chemotherapy: No - Surgical History Surgery Procedure, Year, and Place: COLECTOMY FOR ULCERATIVE COLITIS AT [facility] - has ostomy now 12/2012; bilat knees for cartilage. Tonsils Hx Anesthesia Reactions: No - Immunization History Date of Influenza Vaccine: 06/07/16 Infectious Disease History: Unable to Obtain/Confirm Infectious Disease History: Reports: Hx Hepatitis - hep c Denies: Hx Clostridium Difficile, Hx Human Immunodeficiency Virus (HIV), Hx of Known/Suspected MRSA, Hx Shingles, Hx Tuberculosis, Hx Known/Suspected VRE, Hx Known/Suspected VRSA, History Other Infectious Disease, Traveled Outside the [place] in Last 30 Days - Family History Known Family History: Positive: Hypertension, Respiratory Disease - Social History Alcohol Use: Occasionally Alcohol Amount: 2 Hx Substance Use: No Substance Use Type: Reports: None Hx Tobacco Use: Yes Smoking Status (MU): Former Smoker Type: Cigarettes Amount Used/How Often: 1/2 ppd Length of Time of Smoking/Using Tobacco: 40 years Have You Smoked in the Last Year: Yes Review of Systems Negative: Fever Positive: Palpitations, Other - Chest pressure Positive: Shortness Of Breath All Other Systems Reviewed And Are Negative: Yes Physical Exam - Summary Physical Exam Summary: VITAL SIGNS: Reviewed. GENERAL: Patient is a well-developed and nourished male. He is in severe respiratory distress. HEAD AND FACE: No signs of trauma. No ecchymosis, hematomas or skull depressions. No sinus tenderness. EYES: PERRLA, EOMI x 2, No injected conjunctiva, no nystagmus. EARS: Hearing grossly intact. Ear canals and tympanic membranes are within normal limits. MOUTH: Oropharynx within normal limits. NECK: Supple, trachea is midline, no adenopathy, no JVD, no carotid bruit, no c- spine tenderness, neck with full ROM. CHEST: Symmetric, no tenderness at palpation LUNGS: He is satting 9 on two liters of oxygen. He is in severe respiratory distress. CVS: Tachycardia, irregular rate and rhythm. He is hypertensive. S1 and S2 present, no murmurs or gallops appreciated. ABDOMEN: He has a colostomy bag on his right lower quadrant. Soft, non-tender. No signs of distention. No rebound no guarding, and no masses palpated. Bowel sounds are normal. EXTREMITIES: FROM in all major joints, no edema, no cyanosis or clubbing. NEURO: Alert and oriented x 3. No acute neurological deficits. Speech is normal and follows commands. SKIN: Dry and warm Triage Information Reviewed: Yes Vital Signs On Initial Exam: Initial Vitals Temp Pulse Resp BP Pulse Ox 97.4 F 205 40 155/126 100 10/30/17 08:04 10/30/17 08:04 10/30/17 08:04 10/30/17 08:04 10/30/17 08:04 Vital Signs Reviewed: Yes Diagnostics - Vital Signs Vital Signs Temp Pulse Resp BP Pulse Ox 10/30/17 08:04 97.4 F 205 40 155/126 100 - Laboratory Result Diagrams: 10/30/17 08:05 10/30/17 08:05 Lab Statement: Any lab studies that have been ordered have been reviewed, and results considered in the medical decision making process. - Radiology CXR Xray Interpretation: Positive (See Comments) - Chest x-ray appearance is most consistent with interval development of pulmonary vascular congestion. Dr. Benson has reviewed this report. Radiology Interpretation Completed By: Radiologist - EKG 08:01 Cardiac Rate: Tachycardia - at 201 BPM EKG Rhythm: Atrial Fibrillation Course/Dx - Course Assessment/Plan: The patient is a 56 year old male brought in by ambulance. He had cold sweats last night. This morning, he woke up with shortness of breath and chest pressure. Then, he noticed a lot of palpitations and called 911. The patient has a history of ulcerative colitis and COPD. He has a colostomy bag. EMS gave the patient two Duoneb and Solu-Medrol. Bloodwork is without any significant abnormality. Initially, the patient was placed on the night monitor. We obtained two IV access. He was given two Cardizem boluses of 4 mg. He is on the Cardizem drip. He was given Digoxin 0.25 mg. I spoke with Dr. Dickens, who recommends metoprolol 5 mg IV. EKG shows A-Fib at [address] Dickens also recommends to give more Digoxin and Duo-Neb. Test results show a WBC of 17.9, lactic acid 2.1, BNP 668, and increased LFTs, possibly secondary to ETOH intake. The patients heart rate has decreased to 150-160 BPM. The patient was given the DuoNeb because he is still having shortness of breath with wheezing and decreased breath sounds. The patient feels better, and the patient was placed on high-flow oxygen At this point, I discussed the case with Dr. Beauchamp, who came to assess the patient. He accepts the patient for admission. The patient is critical but stable. - Diagnoses Provider Diagnoses: Atrial fibrillation with RVR, COPD exacerbation - Physician Notifications Discussed Care of Patient With: Kush Dickens Time Discussed With Above Provider: 08:37 Instructed by Provider To: Other - I consulted with Dr. Dickens, cardiology. He came to the emergency room at 08:43. Dr. Dickens also recommends to give more Digoxin and Duo-Neb. I spoke over the phone with Dr. Beauchamp at 09:08, and he will admit the patient. - Critical Care Time Critical Care Time: 75-104 min Discharge - Discharge Plan Condition: Critical Disposition: ADMITTED TO [facility] The documentation as recorded by the Kervin rangel Thomas accurately reflects the service I personally performed and the decisions made by me, Francisco Benson MD.
[2017-10-31] MEDS: Magnesium Oxide TAB* 400 MG PO SCH (09:22)
[2017-10-31] MEDS: Famotidine TAB* 20 MG PO SCH (09:22)
[2017-10-31] MEDS: Metoprolol Succinate XL TAB* 100 MG PO SCH ×2 (09:39→20:20)
[2017-10-31] MEDS: Dronedarone TAB* 400 MG PO SCH ×2 (11:04→20:20)
[2017-10-31] MEDS ORDERED: predniSONE TAB* 20 MG PO ONE (11:14)
--- NOTE | 2017-10-31 11:14 | PN ---
Progress Note - Progress Note Date of Service: 10/31/17 Note: CRITICAL CARE MEDICINE DATE: 10/31/17 TIME: 1045 SUBJECTIVE: Patient seen and examined. doing ok. slept some. Afib but converted to SB when I walked into room this am - you're welcome. PHYSICAL EXAM: Vital Signs: Reviewed. HR 60.RR less labored. Neurologic: awake, comm, holds capacity; nonfocal HEENT: perrl Cardiovascular: distant, reg Respiratory: tight but much better. wheeze present but better. Abdomen: soft, less excessory musc use Extremities: warm, chronic changes Access: piv LABS: Reviewed. IMAGING: Reviewed. MEDICATIONS: Reviewed. ASSESSMENT: 56 M Acute hypercarbic > hypoxic resp failure COPD exacerbation Aspiration pneumonitis Afib with rvr on chronic pafib sepsis PLAN: Neurologic: tolerating. prns Cardiovascular: perfusing. converted this am. appreciate cards help. weaning slow on cardizem gtt, but certainly on seems to respond to bb. po and prn iv. dig if needed. echo if as needed per cards Respiratory: can be off HFO2. needs nebs still and time with O2 support. steroids continued. hopefully not needing rescue today but needs ICU again, seems more likely aspiration related trigger Gastrointestinal: po. H2 at night to prevent gerd. lfts ok Renal/Metabolic: stable. f/u needs Infectious Disease: azithro as antiinflammatory benefit with copd exac x 5 days Hematology: stable. hsq Endocrine: steroids. Musculoskeletal: oob. Psych/Social: pt expressed understanding of plans. Supportive and preventative care as ordered. SUP: H2 VTE prophylaxis: lovenox Disposition: ICU today and hopefully floor matthias Code Status: Full Critical Care Time: 30min Jessy Beauchamp DO
[2017-10-31] MEDS: Levalbuterol 1.25MG/0.5ML NEB INH PRN ×3 (13:25→22:08)
[2017-10-31] MEDS: DOXYcycline CAP(*) 100 MG PO SCH (13:55)
[2017-10-31] MEDS: Diltiazem IV VIAL* 125 MG in NS 0.9% 100 ML* 100 ML IV SCH (14:51)
[2017-10-31] MEDS: Enoxaparin(*) 40 MG/0.4 ML SYR SUBCUT SCH (15:10)
[2017-10-31] MEDS: Mometasone 220 MCG MDI INH SCH (20:18)
[2017-11-01] MEDS: Diltiazem IV VIAL* 125 MG in NS 0.9% 100 ML* 100 ML IV SCH ×2 (00:18→09:30)
[2017-11-01] MEDS: LORazepam INJ* 2 MG/ML 1 ML VIAL IV PUSH PRN ×3 (01:08→23:59)
[2017-11-01] MEDS: Albuterol 2.5 MG/3 ML NEB.SOL* (0.083%) INH PRN ×2 (03:01→16:55)
[2017-11-01 05:22] LABS: Hematocrit 41 % (42-52); Hemoglobin 13.5 g/dl (14.0-18.0); Mean Corpuscular HGB Conc 33 g/dl (31-36); Mean Corpuscular Hemoglobin 33 pg (27-31); Mean Corpuscular Volume 100 fL (80-94); Mean Platelet Volume 9 um3 (7.4-10.4); Platelet Count 181 10^3/ul (150-450); Red Blood Count 4.13 10^6/ul (4.0-5.4); Red Cell Distribution Width 14 % (10.5-15)
[2017-11-01 05:23] LABS: INR 0.94 (0.77-1.02)
[2017-11-01 05:24] LABS: ABS Basophils 0.1 10^3/ul (0-0.2); ABS Eosinophils 0 10^3/ul (0-0.6); ABS Lymphocytes 0.1 10^3/ul (1.0-4.8); ABS Monocytes 1.3 10^3/ul (0-0.8); ABS Neutrophils 25.4 10^3/ul (1.5-7.7); ABS Nucleated RBC 0 10^3/ul; Eosinophil % 0 % (0-6); Lymphocyte % 0.5 % (25-47); Nucleated Red Blood Cells % 0
[2017-11-01 05:35] LABS: EGFR Non-African American 70.7 (>60)
[2017-11-01] MEDS ORDERED: Furosemide IV* 10 MG/ML 2 ML VIAL (20 MG) IV ONE (10:17)
[2017-11-01] MEDS: Dronedarone TAB* 400 MG PO SCH ×2 (10:18→20:16)
[2017-11-01] MEDS: Famotidine TAB* 20 MG PO SCH (10:18)
[2017-11-01] MEDS: Magnesium Oxide TAB* 400 MG PO SCH (10:18)
[2017-11-01] MEDS: DOXYcycline CAP(*) 100 MG PO SCH (10:18)
[2017-11-01] MEDS: predniSONE TAB* 20 MG PO SCH (10:19)
[2017-11-01] MEDS: Metoprolol Succinate XL TAB* 100 MG PO SCH (10:53)
--- NOTE | 2017-11-01 11:03 | PN ---
Progress Note - Progress Note Date of Service: 11/01/17 Note: CRITICAL CARE MEDICINE DATE: 11/01/17 TIME: 1025 SUBJECTIVE: Patient seen and examined. doing ok but sob this am with HFO2 replaced. SB PHYSICAL EXAM: Vital Signs: Reviewed. HR 60. RR back to what it was a little while after he presented. Neurologic: awake, comm, holds capacity; but mild delirium HEENT: perrl Cardiovascular: distant, reg Respiratory: tight again with bl wheeze R>L Abdomen: soft, again with accessory musc use Extremities: warm, chronic changes Access: piv LABS: Reviewed. IMAGING: Reviewed. MEDICATIONS: Reviewed. ASSESSMENT: 56 M Acute hypercarbic > hypoxic resp failure COPD exacerbation Aspiration pneumonitis Afib with rvr on chronic pafib sepsis PLAN: Neurologic: tolerating. prns Cardiovascular: perfusing. HR been controlled now and cards f/u with plans for pacer and better rx control. He has not mobilized fluid, which if more diastolic and rate related he should have and may be contributing more to his ailments at present. Lung water seems more associated with aspiration pneumonitits sequestration, but may have depressed systolic function now too and therefore all the same, trial lasix. Respiratory: HFO2 but can wean back off. steroids. nebs. repeat cxr to ensure no blossuming post pneumonitis. Gastrointestinal: po. H2. Renal/Metabolic: stable. f/u needs Infectious Disease: adjusted to doxy yesterday to avoid QT issues, and can add back C3, although no fever, wbc up (yes on steroids) but with plans for pacer and unclear cxr, can tx as cap as well for course. Hematology: stable. hsq Endocrine: steroids continued. Musculoskeletal: oob. Psych/Social: pt expressed understanding of plans. Supportive and preventative care as ordered. SUP: H2 VTE prophylaxis: lovenox Disposition: ICU today; slow progress Code Status: Full Critical Care Time: 25min Jessy Beauchamp DO
[2017-11-01] MEDS: Levalbuterol 1.25MG/0.5ML NEB INH PRN (11:25)
--- NOTE | 2017-11-01 11:32 | RAD ---
Indication: COPD exacerbation. Aspiration. Moderate dyspnea. Comparison: October 30, 2017 Technique: Upright AP 1040 hours Report: Increased prominence of interstitial markings with thickened peripheral interlobular septa. Small bilateral pleural effusions new compared with the prior exam. Negative for cardiomegaly. Mild prominence of the central pulmonary vasculature. IMPRESSION: The constellation of findings is most consistent with pulmonary vascular congestion and interstitial edema with associated small pleural effusions with interval worsening. Coexisting inflammatory infiltrate at the lung bases not excluded.
--- NOTE | 2017-11-01 12:25 | ECHO ---
Patient: REMA MARVIN [facility] Rec#: [id number] : 1960 Date: 11/01/2017 Age: 56y Height: 168 cm / 66.1 in Weight: 66.3 kg / 146.1 lbs Sex: M BSA: 1.8 Room#: ICU 2 Admit Date#: 11/01/2017 Type: Inpatient Referring: Kush Dickens MD Reading: Kush Dickens MD Field Naturalist: Kellen Garcia RN RDCS CC: Allyn Heredia MD Transthoracic Echocardiogram Indication: Dyspnea, cardiomyopathy BP: 126/98 HR: 57 Rhythm: Bradycardia Findings History: A. fib, HTN, asthma, emphysema, prior GI bleed, former smoker. This is a LIMITED echo to assess LV systolic function. Technical Comments: The study quality is fair. The study is technically limited due to the patient's history of COPD. The study is technically limited due to the patient's smoking history. The study was technically limited due to the patient's inability to lay in the left lateral decubitus position. The patient was sitting upright in the bed at a 90 degree angle during the exam due to respiratory difficulty. Completed at 1120. Left Ventricle: There is global hypokinesis of the left ventricle with minor regional variation.The anterolateral and lateral segments appear to be relatively hypokinetic c/t to the other segments. There is mild to moderately decreased left ventricular systolic function. The estimated ejection fraction is 35-40%. There is septal flattening of the interventricular septum consistent with right ventricular volume or pressure overload. Right Ventricle: The right ventricle is mildly dilated. The right ventricular global systolic function is moderately reduced. Mitral Valve: The mitral valve leaflets are mildly thickened. There is mild mitral regurgitation. The mitral regurgitant jet is laterally directed. The mitral regurgitant jet is eccentric. There is no evidence of mitral stenosis. Tricuspid Valve: The tricuspid valve leaflets are normal. There is mild to moderate tricuspid regurgitation. Unable to estimate the right ventricular systolic pressure. Pericardium: There is no significant pericardial effusion. Conclusions The study is technically limited due to the patient's history of COPD. The study was technically limited due to the patient's inability to lay in the left lateral decubitus position. The patient was sitting upright in the bed at a 90 degree angle during the exam due to respiratory difficulty. There is global hypokinesis of the left ventricle with minor regional variation. The anterolateral and lateral segments appear to be relatively hypokinetic c/t to the other segments. There is mild to moderately decreased left ventricular systolic function. The estimated ejection fraction is 35-40%. There is septal flattening of the interventricular septum consistent with right ventricular volume or pressure overload. The right ventricle is mildly dilated. The right ventricular global systolic function is moderately reduced. There is mild mitral regurgitation. The mitral regurgitant jet is eccentric. There is mild to moderate tricuspid regurgitation. Prior study of did not assess LV function; decribed normal RV function which was reduced on today's study.
[2017-11-01] MEDS: cefTRIAXone(*) 1 GM in D5W 50 ML BAG* 50 ML IVPB SCH (13:19)
[2017-11-01] MEDS: Enoxaparin(*) 40 MG/0.4 ML SYR SUBCUT SCH (17:13)
[2017-11-01] MEDS: Metoprolol Succinate XL TAB* 25 MG PO SCH (20:16)
[2017-11-01] MEDS: Mometasone 220 MCG MDI INH SCH (20:17)
[2017-11-01] MEDS: QUEtiapine TAB* 25 MG PO PRN (21:09)
[2017-11-01] MEDS: Morphine INJ* 2 MG/ML 1 ML CARPUJECT IV PRN (21:17)
[2017-11-01] MEDS: Metoprolol Tartrate IV* 1 MG/ML 5 ML VIAL IV PRN (23:16)
[2017-11-02] MEDS: Morphine INJ* 2 MG/ML 1 ML CARPUJECT IV PRN ×3 (00:12→17:33)
[2017-11-02] MEDS: Levalbuterol 1.25MG/0.5ML NEB INH PRN (00:26)
[2017-11-02] MEDS: Metoprolol Tartrate IV* 1 MG/ML 5 ML VIAL IV PRN (00:28)
[2017-11-02] MEDS ORDERED: Furosemide IV* 10 MG/ML 2 ML VIAL (20 MG) IV ONE (00:30)
[2017-11-02] MEDS ORDERED: Furosemide IV* 10 MG/ML 2 ML VIAL (20 MG) ONE (00:37)
[2017-11-02] MEDS ORDERED: LORazepam INJ* 2 MG/ML 1 ML VIAL IV PUSH ONE (01:25)
[2017-11-02] MEDS ORDERED: LORazepam INJ* 2 MG/ML 1 ML VIAL IV PUSH PRN (01:25)
[2017-11-02] MEDS ORDERED: Diltiazem IV* 5 MG/ML 5 ML VIAL (for loading dose/IV Push) (25 MG) IV SLOW PU ONE (01:57)
[2017-11-02] MEDS ORDERED: Diltiazem DRIP* 100 MG/100 ML ADDV.BAG IVPB SCH (02:00)
--- NOTE | 2017-11-02 03:13 | PN ---
Progress Note - Progress Note Date of Service: 11/02/17 Note: Paged for persistent rapid afib and tachpnea with increase work of breathing. CXR showed more prominent interstitial markings - Lung sounds - poor aeration with rhonchi and wheeze. gave Lasix 20 mg and placed on BiPAP, started morphine prn. Seems more comfortable but afib with rvr continued, so resume his cardizem drip with 10 mg bolus.
[2017-11-02] MEDS ORDERED: Digoxin IV* 0.5 MG/2 ML AMP (0.25 MG/ML) IV SLOW PU ONE ×2 (04:45→17:04)
[2017-11-02] MEDS: Diltiazem IV VIAL* 125 MG in NS 0.9% 100 ML* 100 ML IV SCH ×4 (04:54→20:16)
[2017-11-02 06:05] LABS: ABS Basophils 0 10^3/ul (0-0.2); ABS Eosinophils 0 10^3/ul (0-0.6); ABS Lymphocytes 0.2 10^3/ul (1.0-4.8); ABS Monocytes 1.2 10^3/ul (0-0.8); ABS Neutrophils 15.7 10^3/ul (1.5-7.7); ABS Nucleated RBC 0 10^3/ul; Eosinophil % 0 % (0-6); Hematocrit 39 % (42-52); Hemoglobin 13.2 g/dl (14.0-18.0); Lymphocyte % 1.1 % (25-47); Mean Corpuscular HGB Conc 34 g/dl (31-36); Mean Corpuscular Hemoglobin 33 pg (27-31); Mean Corpuscular Volume 98 fL (80-94); Mean Platelet Volume 8 um3 (7.4-10.4); Nucleated Red Blood Cells % 0; Platelet Count 135 10^3/ul (150-450); Red Blood Count 3.96 10^6/ul (4.0-5.4); Red Cell Distribution Width 14 % (10.5-15); White Blood Count 17.2 10^3/ul (3.5-10.8)
[2017-11-02 06:22] LABS: EGFR Non-African American 79.1 (>60)
--- NOTE | 2017-11-02 08:01 | RAD ---
HISTORY: Shortness of breath COMPARISONS: October 30, 2017 VIEWS: 1: frontal portable view of the chest at 12:42 AM FINDINGS: LINES AND TUBES: None. CARDIOMEDIASTINAL SILHOUETTE: The cardiomediastinal silhouette is normal for portable technique. PLEURA: There is blunting of the left costophrenic angle. LUNG PARENCHYMA: There is patchy alveolar opacification of the lung bases bilaterally, greater on the right than on the left. ABDOMEN: The upper abdomen is clear. There is no subphrenic gas. BONES AND SOFT TISSUES: No bone or soft tissue abnormalities are noted. IMPRESSION: 1. RIGHT GREATER LEFT BILATERAL LOWER LUNG CONSOLIDATION. 2. SMALL LEFT PLEURAL EFFUSION. 3. RECOMMEND FOLLOW-UP UNTIL RESOLUTION TO EXCLUDE UNDERLYING PULMONARY PARENCHYMAL PATHOLOGY.
[2017-11-02] MEDS: Metoprolol Succinate XL TAB* 25 MG PO SCH ×2 (09:06→22:12)
[2017-11-02] MEDS: Magnesium Oxide TAB* 400 MG PO SCH (09:06)
[2017-11-02] MEDS: DOXYcycline CAP(*) 100 MG PO SCH (09:06)
[2017-11-02] MEDS: predniSONE TAB* 20 MG PO SCH (09:06)
[2017-11-02] MEDS: Famotidine TAB* 20 MG PO SCH (09:06)
[2017-11-02] MEDS: Dronedarone TAB* 400 MG PO SCH ×2 (09:07→22:12)
--- NOTE | 2017-11-02 09:39 | ECHO ---
Patient: REMA MARVIN [facility] [place] Rec#: [id number] : 1960 Date: 11/02/2017 Age: 56y Height: 167.6 cm / 66.0 in Weight: 66.2 kg / 145.9 lbs Sex: M BSA: 1.8 Room#: ICU 2 Admit Date#: 11/01/2017 Type: Inpatient Referring: Kush Dickens MD Reading: Jeronimo Garcia MD Radio Assembler: Kellen Garcia RN RDCS CC: Allyn Heredia MD Transthoracic Echocardiogram Indication: Dyspnea, Cardiomyopathy BP: 107/86 HR: 135 Rhythm: A-Fib Findings History: A. fib, HTN, asthma, emphysema, former smoker. Technical Comments: The study quality is fair. The study is technically limited due to the patient's history of COPD. The study was technically limited due to the patient's inability to lay in the left lateral decubitus position. The patient was sitting upright in bed at a 90 degree angle during the exam. Completed at 0825. Left Ventricle: The left ventricular chamber size is normal. There is global hypokinesis of the left ventricle with minor regional variation. There is moderately decreased left ventricular systolic function. The estimated ejection fraction is 30-35%. The assessment of diastolic function is non-diagnostic. Left Atrium: The left atrial chamber size is normal. Right Ventricle: The right ventricular global systolic function is moderately reduced. Right Atrium: The right atrial cavity size is normal. Aortic Valve: The aortic valve structure is not well visualized. The aortic valve leaflets are mildly thickened. There is no evidence of aortic regurgitation. There is no evidence of aortic stenosis. Mitral Valve: There is mitral annular calcification. The mitral valve leaflets are mildly thickened. Mild subvalvular thickening of the mitral valve is visualized. There is mild mitral regurgitation. There is no evidence of mitral stenosis. Tricuspid Valve: The tricuspid valve leaflets are normal. There is mild tricuspid regurgitation. There is evidence that pulmonary hypertension may be underestimated. There is no tricuspid stenosis. Pulmonic Valve: The pulmonic valve structure is not well visualized. There is mild pulmonic regurgitation. There is no pulmonic stenosis. Pericardium: There is no significant pericardial effusion. Aorta: The ascending aorta is not well visualized. The aortic arch is not well visualized. There is no dilation of the aortic root. Pulmonary Artery: The main pulmonary artery is not well visualized. Venous: The inferior vena cava is dilated. There is less than 50% respiratory change in the inferior vena cava dimension. Conclusions There is global hypokinesis of the left ventricle with minor regional variation. There is moderately decreased left ventricular systolic function. The estimated ejection fraction is 30-35%. The assessment of diastolic function is non-diagnostic. The right ventricular global systolic function is moderately reduced. There is no evidence of aortic stenosis. There is mild mitral regurgitation. There is mild tricuspid regurgitation. There is no significant pericardial effusion. Measurements Name Value Normal Range RVDdMajor (2D) 2.3 cm (2.2 - 4.4) RAd ISD 4CH 4.3 cm (3.4 - 4.9) RA (A4C)W 3.8 cm (2.9 - 4.6) IVSd (2D) 1 cm (0.6 - 1) LVPWd (2D) 1 cm (0.6 - 1) LVIDd (2D) 4.4 cm (3.6 - 5.4) LVIDs (2D) 3.6 cm - Aortic Annulus 1.9 cm (1.4 - 2.6) Ao root diameter (2D) 2.8 cm (2.1 - 3.5) LA dimension (AP) 2D 3.8 cm (2.3 - 3.8) LAd ISD 4CH 4 cm (2.9 - 5.3) LA ISD 4CH W 3.6 cm (2.5 - 4.5) Name Value Normal Range LA ESV SP 4CH (A/L) 37 ml - LA ESV SP 2CH (A/L) 46 ml - LA ESV BP (A/L) 46 ml - LA ESV BP (A/L) index 26 ml/m2 - LA ESV SP 4CH (MOD) 32 ml - LA ESV SP 2CH (MOD) 42 ml - Name Value Normal Range MV E-wave Vmax 0.89 m/sec - MV deceleration time 183 msec - LV septal e' Vmax 0.1 m/sec - LV lateral e' Vmax 0.11 m/sec - LV E:e' septal ratio 8.9 ratio - LV E:e' lateral ratio 8.1 ratio - Name Value Normal Range AV Vmax 1.2 m/sec - AV VTI 17.6 cm - AV peak gradient 6 mmHg - AV mean gradient 3 mmHg - LVOT Vmax 0.76 m/sec - LVOT VTI 10.7 cm - LVOT peak gradient 2.5 mmHg - LVOT mean gradient 1.4 mmHg - Name Value Normal Range TR Vmax 2 m/sec - TR peak gradient 16 mmHg - RAP 15 mmHg - RVSP 31 mmHg - IVC diameter 2.5 cm - Name Value Normal Range PV Vmax 0.64 m/sec -
--- NOTE | 2017-11-02 09:44 | PN ---
Progress Note - Progress Note Date of Service: 11/02/17 Note: CCM Progress Note Noted overnight issue Patient not on BiPAP this AM Says his breathing is better than ytdy Remains in rapid A Fib despite Cardizem gtt, IV pushes of Lopressor, and IVP Dig Patient denies any sense that his heart is racing. Denies chest pain Reports he is hungry as his main symptom SBP 114 HR 120-140 irreg RR 22 SpO2 92(NC) Skin no diaphoresis, no cyanosis, (+)tattoos Sclerae anicteric Oral mucosa pink Neck supple Lungs w/o rhonchi or wheezes Cor Irreg, tachy no rub, no murmur Abd soft dist, nontender Ext mild pitting edema Lt slightly larger than right leg Neuro moves all 4 extrems, attentive, focuses gaze, nods comprehension of vocal , speaks hoarsely WBC 17.2 Hgb 13.2 Plt 135 K 4.5 BUN/Creat 34/0.98 Pi 3.3 Mg 2.0 ECHO with LVEF 35-40%, dilated RV with moderate dysfunction CXR with bibasilar infiltrates NO new culture data IMP: Paroxysmal A Fib with RVR presently...refractory to multiple interventions so far Hx advanced COPD/Emphysema Biventricular Cardiomyopathy Mild peripheral edema PLAN/REC: Cardizem gtt Dronedarone Continue Lopressor Continue Dig as needed....monitor level intermittently Bronchodilator inhalers Prednisone Continue Abx DVT prophyl to continue Duplex legs re disparate edema...rule out DVT
[2017-11-02] MEDS: cefTRIAXone(*) 1 GM in D5W 50 ML BAG* 50 ML IVPB SCH (12:28)
--- NOTE | 2017-11-02 13:44 | RAD ---
HISTORY: Leg edema COMPARISONS: None relevant TECHNIQUE: Multiple transverse and longitudinal ultrasound images were obtained of the bilateral lower extremities from the level of the common femoral vein inferiorly through to the infrapopliteal veins using grayscale, color Doppler, and spectral Doppler imaging with and without compression and with augmentation. FINDINGS: VEINS: The venous system of the bilateral lower extremities is compressible throughout its course, with normal flow on color Doppler imaging and normal response to augmentation on spectral Doppler imaging. SOFT TISSUES: Unremarkable. OTHER FINDINGS: There are complex fluid collections of the popliteal fossa bilaterally measuring 4.6 cm on the right 5.4 centers in the left. IMPRESSION: 1. NO RIGHT LOWER EXTREMITY DEEP VEIN THROMBOSIS. 2. NO LEFT LOWER EXTREMITY DEEP VEIN THROMBOSIS. 3. BILATERAL BARRETO'S CYSTS.
[2017-11-02] MEDS: Enoxaparin(*) 40 MG/0.4 ML SYR SUBCUT SCH (14:14)
[2017-11-02] MEDS: Mometasone 220 MCG MDI INH SCH (20:33)
[2017-11-03] MEDS: Diltiazem IV VIAL* 125 MG in NS 0.9% 100 ML* 100 ML IV SCH ×3 (05:27→23:08)
[2017-11-03 06:40] LABS: ABS Basophils 0 10^3/ul (0-0.2); ABS Eosinophils 0 10^3/ul (0-0.6); ABS Lymphocytes 0.6 10^3/ul (1.0-4.8); ABS Monocytes 1.2 10^3/ul (0-0.8); ABS Neutrophils 15.1 10^3/ul (1.5-7.7); ABS Nucleated RBC 0 10^3/ul; Eosinophil % 0.1 % (0-6); Hematocrit 39 % (42-52); Hemoglobin 13.3 g/dl (14.0-18.0); Lymphocyte % 3.3 % (25-47); Mean Corpuscular HGB Conc 34 g/dl (31-36); Mean Corpuscular Hemoglobin 33 pg (27-31); Mean Corpuscular Volume 97 fL (80-94); Mean Platelet Volume 8 um3 (7.4-10.4); Nucleated Red Blood Cells % 0; Platelet Count 144 10^3/ul (150-450); Red Blood Count 4.04 10^6/ul (4.0-5.4); Red Cell Distribution Width 14 % (10.5-15)
[2017-11-03] MEDS: Levalbuterol 1.25MG/0.5ML NEB INH PRN ×2 (07:28→11:31)
--- NOTE | 2017-11-03 08:22 | RAD ---
Indication: Dyspnea, pneumonia. Single frontal view of the chest performed at 0720 hours was reviewed. Comparison is made with previous exam dated October 23, 2007. No mediastinal shift is noted. Heart is of normal size. Small left pleural effusion is noted. Interstitial edema is noted. There is improvement of right basilar infiltrate. IMPRESSION: IMPROVEMENT OF RIGHT BASILAR INFILTRATE
[2017-11-03] MEDS: Dronedarone TAB* 400 MG PO SCH ×2 (08:26→21:05)
[2017-11-03] MEDS: Famotidine TAB* 20 MG PO SCH (08:26)
[2017-11-03] MEDS: Magnesium Oxide TAB* 400 MG PO SCH (08:26)
[2017-11-03] MEDS: DOXYcycline CAP(*) 100 MG PO SCH (08:26)
[2017-11-03] MEDS: Metoprolol Succinate XL TAB* 25 MG PO SCH ×2 (08:26→21:05)
[2017-11-03] MEDS: predniSONE TAB* 20 MG PO SCH (08:26)
[2017-11-03 08:31] LABS: EGFR Non-African American 109.4 (>60)
--- NOTE | 2017-11-03 08:31 | PN ---
Progress Note - Progress Note Date of Service: 11/03/17 Note: [facility] Progress Note Awake, alert Sitting up in bed There are some reports that patient is going for PPM today....patient instructed not to eat SBP 118 HR 115-140s irreg RR 22-23 SpO2 99(NC) Skin no diaphoresis, no cyanosis, (+)tattoos, male pattern balding Sclerae anicteric Oral mucosa pink Neck supple Lungs w/o rhonchi or wheezes Cor Irreg, tachy no rub, no murmur Abd soft dist, nontender Ext mild pitting edema bilat Neuro moves all 4 extrems, attentive, focuses gaze, nods comprehension of vocal , voice less hoarse WBC 17 Hgb 13.3 Plt 144 Dig 1.2 Venous duple of legs...no DVT, (+)Gan's cysts ECHO with LVEF 35-40%, dilated RV with moderate dysfunction CXR with much improved lower lobar infiltrates NO new culture data IMP: Paroxysmal A Fib with RVR presently...refractory to multiple interventions so far Hx advanced COPD/Emphysema Biventricular Cardiomyopathy Mild peripheral edema....no DVT Lower lobar infiltrates/pneumonia....better on CXR, leucocytosis remains but patient on steroids PLAN/REC: Cardizem gtt Dronedarone Continue Lopressor Continue Dig as needed....monitor level intermittently Bronchodilator inhalers Prednisone Continue Abx DVT prophyl to continue NPO pending verification of plans for PPM
[2017-11-03] MEDS: cefTRIAXone(*) 1 GM in D5W 50 ML BAG* 50 ML IVPB SCH (12:49)
[2017-11-03] MEDS: Enoxaparin(*) 40 MG/0.4 ML SYR SUBCUT SCH (16:45)
[2017-11-03] MEDS: Mometasone 220 MCG MDI INH SCH (19:18)
[2017-11-04] MEDS: Levalbuterol 1.25MG/0.5ML NEB INH PRN (05:53)
[2017-11-04] MEDS ORDERED: Buffered Lidocaine 0.9% SYRIN* 5 ML/SYR SYRINGE INTRADERM ONE (06:00)
[2017-11-04 06:09] LABS: ABS Basophils 0 10^3/ul (0-0.2); ABS Eosinophils 0.1 10^3/ul (0-0.6); ABS Lymphocytes 0.6 10^3/ul (1.0-4.8); ABS Monocytes 1.2 10^3/ul (0-0.8); ABS Nucleated RBC 0 10^3/ul; Eosinophil % 0.7 % (0-6); Hematocrit 41 % (42-52); Hemoglobin 13.7 g/dl (14.0-18.0); Lymphocyte % 4.3 % (25-47); Mean Corpuscular HGB Conc 33 g/dl (31-36); Mean Corpuscular Hemoglobin 32 pg (27-31); Mean Corpuscular Volume 98 fL (80-94); Mean Platelet Volume 8 um3 (7.4-10.4); Nucleated Red Blood Cells % 0; Platelet Count 137 10^3/ul (150-450); Red Blood Count 4.23 10^6/ul (4.0-5.4); Red Cell Distribution Width 14 % (10.5-15)
[2017-11-04 06:25] LABS: EGFR Non-African American 114.8 (>60)
[2017-11-04] MEDS ORDERED: Magnesium Sulfate 2 GM IV* 2 GM/50 ML BAG IVPB ONE (07:36)
[2017-11-04] MEDS: Famotidine TAB* 20 MG PO SCH (07:52)
[2017-11-04] MEDS: Metoprolol Succinate XL TAB* 25 MG PO SCH ×2 (08:02→20:40)
[2017-11-04] MEDS: Diltiazem IV VIAL* 125 MG in NS 0.9% 100 ML* 100 ML IV SCH ×4 (08:04→17:55)
[2017-11-04] MEDS: predniSONE TAB* 20 MG PO SCH (08:05)
[2017-11-04] MEDS: DOXYcycline CAP(*) 100 MG PO SCH (08:05)
[2017-11-04] MEDS: Dronedarone TAB* 400 MG PO SCH ×2 (08:05→20:40)
[2017-11-04] MEDS: Magnesium Oxide TAB* 400 MG PO SCH (08:05)
--- NOTE | 2017-11-04 09:28 | PN ---
Progress Note - Progress Note Date of Service: 11/04/17 Note: CCM Progress Note Awake, alert Sitting up in bed Did not go for PPM ytdy however is on for today Staff having difficulty maintaining IV access SBP 106 HR 120-140 irreg RR 27 SpO2 92(NC) Skin no diaphoresis, no cyanosis, (+)tattoos, male pattern balding Sclerae anicteric Oral mucosa pink Neck supple Lungs w/o rhonchi or wheezes Cor Irreg, tachy no rub, no murmur Abd soft dist, nontender Ext mild pitting edema bilat Neuro moves all 4 extrems, attentive, focuses gaze, voice strong PIV Rt shoulder and LUE WBC 14 Hgb 13.7 Plt 137 K 4.4 Mg 1.7 BUN/Creat 19/0.7 ECHO with LVEF 35-40%, dilated RV with moderate dysfunction CXR with much improved lower lobar infiltrates NO new culture data IMP: Paroxysmal A Fib with RVR presently...refractory to multiple interventions so far...for PPM today Hx advanced COPD/Emphysema Biventricular Cardiomyopathy Mild peripheral edema....no DVT Lower lobar infiltrates/pneumonia.... leucocytosis improving... patient also on steroids that may account for leucocytosis PLAN/REC: Cardizem gtt Dronedarone Continue Lopressor Continue Dig as needed....monitor level intermittently Bronchodilator inhalers Prednisone Continue Abx DVT prophyl to continue NPO pending PPM Supplement Mg Obtain PICC for reliable access
--- NOTE | 2017-11-04 10:45 | PN ---
Subjective Date of Service: 11/04/17 - CC: sob, syncope Interval History: Pt SOB, better. No recent syncope. Unaware of afib/rate, no palpitations. Cough persistes, per pt better. No recent bleeding from colostomy bag. 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 Off anticoagulation due to lower GI bleeding. Have not been able to get a colonoscopy via [facility] for a year due to social issues (patient/insurance). Per Dr Clark pt an active drinker, he therefore does not recommend antiarrhythmics, but states he tolerated Toprol XL 100 mg well. He is agreeablel to plan for dual chamber pacer, mormonism of NSR with A pacing. Medications Active Medications: Albuterol (Ventolin 2.5 Mg/3 Ml Neb.Leona*) 2.5 mg INH Q4H PRN PRN Reason: WHEEZING Last Admin: 11/01/17 16:55 Dose: 2.5 mg Cefazolin Sodium/Dextrose (Kefzol Syringe 1 Gm/10 Ml Flush Syringe(*)) 1 gm FLUSH 1100 ONE Stop: 11/04/17 11:01 Dronedarone (Multaq Tab*) 400 mg PO 0900,2100 [facility] Last Admin: 11/04/17 08:05 Dose: Not Given Enoxaparin Sodium (Lovenox(*)) 40 mg SUBCUT Q24H [facility] Last Admin: 11/03/17 16:45 Dose: 40 mg Famotidine (Pepcid Tab*) 20 mg PO DAILY [facility] Last Admin: 11/04/17 07:52 Dose: 20 mg Ceftriaxone Sodium 1 gm/ (Dextrose) 50 mls @ 200 mls/hr IVPB Q24H [facility] Last Admin: 11/03/17 12:49 Dose: 200 mls/hr Diltiazem HCl 125 mg/ Sodium (Chloride) 125 mls @ 5 mls/hr IV Q8H JUSTIN PRN Reason: Protocol Last Admin: 11/04/17 08:07 Dose: 15 mls/hr Lactated Ringer's (Lactated Ringers 1000 Ml Bag*) 1,000 mls @ 125 mls/hr IV PER RATE [facility] Last Admin: 11/04/17 07:30 Dose: 125 mls/hr Clindamycin Phosphate 450 mg/ (Sodium Chloride) 53 mls @ 212 mls/hr IVPB ED ONCE ONE Stop: 11/04/17 10:51 Levalbuterol HCl (Xopenex 1.25 Mg/0.5 Ml Neb.Leona*) 1.25 mg INH Q2H PRN PRN Reason: WHEEZING Last Admin: 11/04/17 05:53 Dose: 1.25 mg Lorazepam (Ativan Inj*) 1 mg IV PUSH Q4H PRN PRN Reason: ANXIETY Magnesium Oxide (Magox 400 Tab*) 400 mg PO DAILY [facility] Last Admin: 11/04/17 08:05 Dose: Not Given Metoprolol Succinate (Toprol Xl Tab*) 50 mg PO BID [facility] Last Admin: 11/04/17 08:02 Dose: 50 mg Metoprolol Tartrate (Lopressor Iv*) 5 mg IV Q4H PRN PRN Reason: HEART RATE/PULSE GREATER THAN: Last Admin: 11/02/17 00:28 Dose: 5 mg Mometasone Furoate (Asmanex 220 Mcg Mdi *) 2 puff INH QPM [facility] Last Admin: 11/03/17 19:18 Dose: 2 puff Morphine Sulfate (Morphine Inj (Syringe)*) 2 mg IV Q4H PRN PRN Reason: PAIN/ WORK OF BREATHING Last Admin: 11/02/17 17:33 Dose: 2 mg Prednisone (Deltasone Tab*) 40 mg PO DAILY [facility] Last Admin: 11/04/17 08:05 Dose: Not Given Quetiapine Fumarate (Seroquel Tab*) 50 mg PO DAILY PRN PRN Reason: sleep Last Admin: 11/01/17 21:09 Dose: 50 mg Objective Vital Signs: Temp Pulse Resp BP Pulse Ox 98 F 125 20 132/39 99 11/04/17 08:00 11/04/17 10:01 11/04/17 10:01 11/04/17 10:01 11/04/17 10:01 Oxygen Devices in Use Now: Nasal Cannula Appearance: lean middle aged male, sitting 50 degrees, comfortable. Eyes: No Scleral Icterus, PERRLA Ears/Nose/Mouth/Throat: Clear Oropharnyx, Mucous Membranes Moist Neck: Trachea Midline, No Thyroid Enlargement, Masses Respiratory: Symmetrical Chest Expansion and Respiratory Effort - rhonchorous cough, distant breath sounds, no wheezing. Cardiovascular: NL Sounds; No Murmurs; No JVD - irregularly irregular. Abdominal: NL Sounds; No Tenderness; No Distention - stoma noted. Lymphatic: No Cervical Adenopathy, No Axillary Adenopathy Extremities: No Edema Skin: No Rash or Ulcers Neurological: Alert and Oriented x 3, NL Muscle Strength and Tone Lines/Tubes/Other Access: Clean, Dry and Intact Peripheral IV Laboratory Results: 11/04/17 05:45 11/04/17 05:45 INR (Anticoag Therapy) 0.94 (0.77-1.02) 11/01/17 05:00 APTT 22.9 seconds (26.0-36.3) L 10/30/17 08:05 Total Bilirubin 0.60 mg/dL (0.2-1.0) 11/01/17 05:00 AST 29 U/L (13-39) 11/01/17 05:00 ALT 143 U/L (7-52) H 11/01/17 05:00 Alkaline Phosphatase 67 U/L (34-104) 11/01/17 05:00 CK-MB (CK-2) 6.4 ng/mL (0.6-6.3) H 10/30/17 08:05 B-Natriuretic Peptide 580 pg/mL (-100) H 11/01/17 05:00 Total Protein 6.2 g/dL (6.4-8.9) L 11/01/17 05:00 Albumin 4.1 g/dL (3.2-5.2) 11/01/17 05:00 Globulin 2.1 g/dL (2-4) 11/01/17 05:00 Albumin/Globulin Ratio 2.0 (1-3) 11/01/17 05:00 Diagnostic Imaging: Echo: EF 35%, atria normal in size (while in a fib, rapid ventricular response) . EKG Data: Monitor: afib, rapid ventricular rate. Assessment/Plan 56 yo with COPD, Ulcerative colitis, PAF arrived with hx recent recurrent syncope, severe acute SOB and found in afib, RVR in ED. In and out of afib here , occasionally has SNRT (long pause with CV to sinus rhythm). SSS/SNRT: Dual chamber pacer PAF: Recommend full anticoagulation short term, KATINA guided CV. Post op resume Toprol XL 100 mg/day. CM: With rate control of afib or CV to NSR the hope is the patient's EF will normalize. 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 Will continue Multaq for now, but this is a weak agent. Additional recommendations will be made post implant. Pt s/p dual chamber pacemaker, no pneumothorax or complications. Added one time digoxen for rate control, if effective could try PO daily. Potential increase of metoprolol if lungs and BP will tolerate. I was informed of endoscopy scheduled for tomorrow, if able per GI will then ideally start full anticoagulation.
[2017-11-04] MEDS ORDERED: Lidocaine 1% INJ* 10 MG/ML 30 ML SDV ONE (10:48)
[2017-11-04] MEDS ORDERED: Heparin 2 UNITS/ML IVPREMIX* 1,000 ML IV ONE (10:48)
[2017-11-04] MEDS ORDERED: Iohexol 300 (CONTRAST) 10 ML SDV ONE (10:48)
[2017-11-04] MEDS ORDERED: Clindamycin VIAL(*) 450 MG in NS 0.9% 50 ML* 50 ML IVPB ONE (11:00)
[2017-11-04] MEDS ORDERED: ceFAZolin 1 GM VIAL(*) 1 GM in NS 0.9% 50 ML* 50 ML IVPB ONE (11:00)
[2017-11-04] MEDS ORDERED: ceFAZolin 1 GM/10 ML flush(*) SYRINGE for pocket flush (cardiology) FLUSH ONE (11:00)
[2017-11-04] MEDS ORDERED: fentaNYL* 50 MCG/ML 2 ML VIAL (100 MCG VIAL) ONE (11:08)
[2017-11-04] MEDS ORDERED: Midazolam* 1 MG/ML 2 ML VIAL (2 MG) ONE (11:09)
[2017-11-04] MEDS ORDERED: D5W IVPB ONE (11:30)
[2017-11-04] MEDS ORDERED: CLINDAMYCIN IVPB ONE (11:30)
[2017-11-04] MEDS ORDERED: Metoprolol Tartrate IV* 1 MG/ML 5 ML VIAL ONE (12:39)
[2017-11-04] MEDS ORDERED: Digoxin IV* 0.5 MG/2 ML AMP (0.25 MG/ML) IV SLOW PU ONE (13:35)
[2017-11-04] MEDS: cefTRIAXone(*) 1 GM in D5W 50 ML BAG* 50 ML IVPB SCH (13:50)
--- NOTE | 2017-11-04 14:45 | RAD ---
HISTORY: Status post device implant COMPARISONS: November 03, 2017 VIEWS: 1: frontal portable view of the chest at 2:11 PM FINDINGS: LINES AND TUBES: Left-sided pacemaker is noted. CARDIOMEDIASTINAL SILHOUETTE: The cardiomediastinal silhouette is normal for portable technique. PLEURA: The costophrenic angles are sharp. No pleural abnormalities are noted. There is no appreciable pneumothorax. LUNG PARENCHYMA: There is atheromatous change of the lung apices bilaterally. There is patchy alveolar opacification lung bases bilaterally. ABDOMEN: The upper abdomen is clear. There is no subphrenic gas. BONES AND SOFT TISSUES: No bone or soft tissue abnormalities are noted. IMPRESSION: 1. EMPHYSEMA. 2. PATCHY BIBASILAR ATELECTASIS VERSUS CONSOLIDATION. 3. NO APPRECIABLE PNEUMOTHORAX.
[2017-11-04] MEDS: Enoxaparin(*) 40 MG/0.4 ML SYR SUBCUT SCH (16:29)
[2017-11-04] MEDS: Mometasone 220 MCG MDI INH SCH (19:13)
[2017-11-04] MEDS: Clindamycin 300 MG IVPREMIX(* 300 MG/50 ML SDV IV SCH (20:40)
--- NOTE | 2017-11-04 22:11 | CONS ---
CONSULTATION REPORT: DATE OF CONSULT: 11/04/17 REASON FOR CONSULT: The patient who presented to the hospital on 10/30/17 with atrial fibrillation and rapid ventricular response who underwent pacemaker insertion today and is planning on undergoing cardioversion requiring heparinization. HISTORY OF PRESENT ILLNESS: Mr. Yen is a 56-year-old male with a history of ulcerative colitis, status post ileostomy approximately 5 years ago. The patient has a history of paroxysmal atrial fibrillation as well as COPD. He had been on Xarelto, which was discontinued about 6 months ago after he developed some bright red bleeding from his ileostomy site. He has not undergone GI evaluation. The patient's admission hematocrit was 43. This has essentially remained unchanged with a current hematocrit of 41. The patient has significant COPD running O2 sats in the low 90s on 6 L of oxygen. He has just returned from his pacemaker insertion. He currently denies any specific complaints. PAST MEDICAL HISTORY: Significant for paroxysmal atrial fibrillation, ulcerative colitis, status post colectomy and ileostomy 5 years ago, hypertension, severe COPD, status post arthroscopic surgery. SOCIAL HISTORY: The patient is single. He drinks 2 alcoholic drinks daily. He denies tobacco use. No family history of colon or gastric carcinoma. MEDICATIONS: Currently include: 1. Albuterol. 2. Ceftriaxone. 3. Clindamycin. 4. Diltiazem. 5. Lovenox. 6. Famotidine. 7. Lorazepam. 8. Metoprolol. 9. Prednisone. 10. Seroquel. ALLERGIES: To CIPROFLOXACIN. REVIEW OF SYSTEMS: 10-point review of systems is performed and is negative. PHYSICAL EXAM: Mr. Yen is a frail-appearing 56-year-old male. HEENT exam : There is no scleral icterus. Heart is irregular rate and rhythm. Lungs have decreased breath sounds throughout. Abdomen: Soft. Bowel sounds are present. There is no tenderness. Ileostomy bag in the right lower quadrant without any evidence of blood. Extremities: Without edema. Neuro Exam: Grossly intact. Alert and oriented x3. LABORATORY DATA: Pertinent laboratory studies include a white blood count of 14.0, hemoglobin of 13.7, hematocrit of 41, platelet count of 137. Sodium of 135, potassium of 4.4, CO2 of 34, BUN of 19, creatinine of 0.7, ALT of 143, albumin of 4.1, AST of 50, total bilirubin of 0.6. IMPRESSION: Mr. Yen has presented with atrial fibrillation with rapid ventricular response. He has undergone pacemaker insertion and Cardiology wishes to perform cardioversion, which would require anticoagulation. We have been asked to see Mr. Yen regarding GI evaluation prior to cardioversion for ileoscopy and upper endoscopy to rule out any sources of any significant blood loss. RECOMMENDATIONS: The patient will have a clear liquid diet for lunch and dinner. He will be n.p.o. after midnight. I have discussed this with the ICU nurse. The patient will be scheduled with Anesthesia for sedation and likely require intubation given his severe COPD and will likely need to be done in the OR. This has been scheduled by an endoscopy nurse. Further recommendations will be based on the results of these studies planned for tomorrow. [id number]/CPS #: [id number] MTDD
[2017-11-05] MEDS: Diltiazem IV VIAL* 125 MG in NS 0.9% 100 ML* 100 ML IV SCH ×2 (01:47→04:14)
[2017-11-05] MEDS: Acetaminophen TAB* 325 MG PO PRN ×2 (04:14→11:48)
[2017-11-05] MEDS: Clindamycin 300 MG IVPREMIX(* 300 MG/50 ML SDV IV SCH ×3 (06:04→19:59)
[2017-11-05] MEDS: Levalbuterol 1.25MG/0.5ML NEB INH PRN (07:49)
[2017-11-05] MEDS: Metoprolol Succinate XL TAB* 25 MG PO SCH (08:49)
[2017-11-05] MEDS: Famotidine TAB* 20 MG PO SCH (08:49)
[2017-11-05] MEDS: Magnesium Oxide TAB* 400 MG PO SCH (08:49)
[2017-11-05] MEDS: predniSONE TAB* 20 MG PO SCH (08:49)
--- NOTE | 2017-11-05 09:03 | RAD ---
HISTORY: Status post device implant COMPARISONS: November 04, 2017 VIEWS: 4: Frontal dual-energy and lateral views of the chest. FINDINGS: CARDIOMEDIASTINAL SILHOUETTE: The cardiomediastinal silhouette is normal. ROGELIO: The rogelio are normal. PLEURA: There is blunting of the left costophrenic angle. LUNG PARENCHYMA: There is hyperinflation with flattening of the diaphragm and expansion of the AP diameter of the chest. There is biapical emphysematous change. ABDOMEN: The upper abdomen is clear. There is no subphrenic gas. BONES AND SOFT TISSUES: No bone or soft tissue abnormalities are noted. OTHER: A left-sided pacemaker is noted. IMPRESSION: 1. EMPHYSEMA. 2. SMALL LEFT PLEURAL EFFUSION VERSUS CHRONIC PLEURAL THICKENING.
[2017-11-05] MEDS: Metoprolol Tartrate IV* 1 MG/ML 5 ML VIAL IV PRN (09:16)
[2017-11-05] MEDS: Dronedarone TAB* 400 MG PO SCH (09:16)
[2017-11-05] MEDS ORDERED: Digoxin IV* 0.5 MG/2 ML AMP (0.25 MG/ML) IV SLOW PU ONE (09:46)
--- NOTE | 2017-11-05 09:46 | PN ---
Subjective Date of Service: 11/05/17 - CC: light headed, afib with tachycardia Interval History: The patient feels lightheaded. No c/o at incision. Per nursing report (and monitor) afib, RVR overnight with metoprolol, digoxen and dilt gtt 15 mg/hour. Medications Active Medications: Acetaminophen (Tylenol Tab*) 650 mg PO Q4H PRN PRN Reason: PAIN Last Admin: 11/05/17 04:14 Dose: 650 mg Albuterol (Ventolin 2.5 Mg/3 Ml Neb.Leona*) 2.5 mg INH Q4H PRN PRN Reason: WHEEZING Last Admin: 11/01/17 16:55 Dose: 2.5 mg Dronedarone (Multaq Tab*) 400 mg PO 0900,2100 [facility] Last Admin: 11/05/17 09:16 Dose: 400 mg Enoxaparin Sodium (Lovenox(*)) 40 mg SUBCUT Q24H [facility] Last Admin: 11/04/17 16:29 Dose: 40 mg Famotidine (Pepcid Tab*) 20 mg PO DAILY [facility] Last Admin: 11/05/17 08:49 Dose: 20 mg Ceftriaxone Sodium 1 gm/ (Dextrose) 50 mls @ 200 mls/hr IVPB Q24H [facility] Last Admin: 11/04/17 13:50 Dose: 200 mls/hr Diltiazem HCl 125 mg/ Sodium (Chloride) 125 mls @ 5 mls/hr IV Q8H JUSTIN PRN Reason: Protocol Last Admin: 11/05/17 04:14 Dose: 15 mls/hr Lactated Ringer's (Lactated Ringers 1000 Ml Bag*) 1,000 mls @ 125 mls/hr IV PER RATE [facility] Last Admin: 11/04/17 07:30 Dose: 125 mls/hr Clindamycin HCl/Dextrose (Cleocin 300 Mg Ivpemix(*)) 300 mg in 50 mls @ 200 mls /hr IV Q8H [facility] Last Admin: 11/05/17 06:04 Dose: 200 mls/hr Levalbuterol HCl (Xopenex 1.25 Mg/0.5 Ml Neb.Leona*) 1.25 mg INH Q2H PRN PRN Reason: WHEEZING Last Admin: 11/05/17 07:49 Dose: 1.25 mg Lorazepam (Ativan Inj*) 1 mg IV PUSH Q4H PRN PRN Reason: ANXIETY Magnesium Oxide (Magox 400 Tab*) 400 mg PO DAILY [facility] Last Admin: 11/05/17 08:49 Dose: 400 mg Metoprolol Succinate (Toprol Xl Tab*) 50 mg PO BID [facility] Last Admin: 11/05/17 08:49 Dose: 50 mg Metoprolol Tartrate (Lopressor Iv*) 5 mg IV Q4H PRN PRN Reason: HEART RATE/PULSE GREATER THAN: Last Admin: 11/05/17 09:16 Dose: 5 mg Mometasone Furoate (Asmanex 220 Mcg Mdi *) 2 puff INH QPM [facility] Last Admin: 11/04/17 19:13 Dose: 2 puff Morphine Sulfate (Morphine Inj (Syringe)*) 2 mg IV Q4H PRN PRN Reason: PAIN/ WORK OF BREATHING Last Admin: 11/02/17 17:33 Dose: 2 mg Prednisone (Deltasone Tab*) 40 mg PO DAILY [facility] Last Admin: 11/05/17 08:49 Dose: 40 mg Quetiapine Fumarate (Seroquel Tab*) 50 mg PO DAILY PRN PRN Reason: sleep Last Admin: 11/01/17 21:09 Dose: 50 mg Objective Vital Signs: Temp Pulse Resp BP Pulse Ox 98.3 F 89 14 105/70 95 11/05/17 04:00 11/05/17 08:00 11/05/17 08:00 11/05/17 07:01 11/05/17 08:00 Oxygen Devices in Use Now: Nasal Cannula Appearance: lean middle aged male, sitting upright in bed, comfortable. Eyes: No Scleral Icterus, PERRLA Ears/Nose/Mouth/Throat: Clear Oropharnyx, Mucous Membranes Moist Neck: Trachea Midline, No Thyroid Enlargement, Masses Respiratory: Symmetrical Chest Expansion and Respiratory Effort - rhonchorous cough, distant breath sounds, no wheezing. Cardiovascular: NL Sounds; No Murmurs; No JVD - irregularly irregular. Abdominal: NL Sounds; No Tenderness; No Distention - stoma noted. Lymphatic: No Cervical Adenopathy, No Axillary Adenopathy Extremities: No Edema Skin: No Rash or Ulcers, - - incision left subclavian fossa mild superior ecchymosis, no hematoma, no evidence of infection. Neurological: Alert and Oriented x 3, NL Muscle Strength and Tone Lines/Tubes/Other Access: Clean, Dry and Intact Peripheral IV Laboratory Results: 11/04/17 05:45 11/04/17 05:45 INR (Anticoag Therapy) 0.94 (0.77-1.02) 11/01/17 05:00 APTT 22.9 seconds (26.0-36.3) L 10/30/17 08:05 Total Bilirubin 0.60 mg/dL (0.2-1.0) 11/01/17 05:00 AST 29 U/L (13-39) 11/01/17 05:00 ALT 143 U/L (7-52) H 11/01/17 05:00 Alkaline Phosphatase 67 U/L (34-104) 11/01/17 05:00 CK-MB (CK-2) 6.4 ng/mL (0.6-6.3) H 10/30/17 08:05 B-Natriuretic Peptide 580 pg/mL (-100) H 11/01/17 05:00 Total Protein 6.2 g/dL (6.4-8.9) L 11/01/17 05:00 Albumin 4.1 g/dL (3.2-5.2) 11/01/17 05:00 Globulin 2.1 g/dL (2-4) 11/01/17 05:00 Albumin/Globulin Ratio 2.0 (1-3) 11/01/17 05:00 Diagnostic Imaging: Echo: EF 35%, atria normal in size (while in a fib, rapid ventricular response) . EKG Data: Monitor: afib, rapid ventricular rate. Assessment/Plan 56 yo with COPD, Ulcerative colitis, PAF arrived with hx recent recurrent syncope, severe acute SOB and found in afib, RVR in ED. In and out of afib here , occasionally has SNRT (long pause with CV to sinus rhythm). POD #1 dual chamber pacer implant, good function on interrogation and good lead placement on CXR. CM: Possible tachycardic induced. Plan: STOP diltiazem gtt. Increase metoprolol PO. Stop Multaq, weak, not working and not preferred by Dr. Clark. AFib: Try and improve rate control as above. If able post endoscopy today would recommend full anticoagulation. If able to anticoagulate, then KATINA guided CV.
[2017-11-05] MEDS: cefTRIAXone(*) 1 GM in D5W 50 ML BAG* 50 ML IVPB SCH (11:44)
--- NOTE | 2017-11-05 12:05 | PN ---
Progress Note - Progress Note Date of Service: 11/05/17 Note: CCM Progress Note Awake, alert Sitting up in bed PPM done ytdy Awaiting Endoscopy later today SBP 105 HR 124 irreg RR 24 SpO2 94(NC) Skin no diaphoresis, no cyanosis, (+)tattoos, male pattern balding Sclerae anicteric Oral mucosa pink Neck supple Lungs w/o rhonchi or wheezes Cor Irreg, tachy no rub, no murmur Abd soft dist, nontender Ext min edema bilat Neuro moves all 4 extrems, attentive, focuses gaze, voice strong RUE with PIV IMP: Paroxysmal A Fib with RVR presently...refractory to multiple interventions so far...now has PPM with ultimate goal to try cardioversion Hx advanced COPD/Emphysema Biventricular Cardiomyopathy Mild peripheral edema....no DVT Lower lobar infiltrates/pneumonia Hx Ulc Colitis with colectomy and ileostomy in past Hx GI bleeding several months ago leading to D/C of Xarelto PLAN/REC: Cardiology adjusting rate control meds re A Fib GI evaluation as planned Bronchodilator inhalers Prednisone Continue Abx DVT prophyl to continue NPO pending endoscopy Obtain PICC for reliable access
[2017-11-05] MEDS: Metoprolol Tartrate TAB* 50 mg PO SCH ×2 (14:45→19:59)
[2017-11-05] MEDS: Enoxaparin(*) 40 MG/0.4 ML SYR SUBCUT SCH (14:45)
[2017-11-05] MEDS ORDERED: fentaNYL* 50 MCG/ML 2 ML VIAL (100 MCG VIAL) ONE (15:27)
[2017-11-05] MEDS ORDERED: Midazolam* 1 MG/ML 2 ML VIAL (2 MG) ONE (15:28)
[2017-11-05] MEDS ORDERED: HYDROcodone/ACETAMIN 5-325 MG* 1 TAB PO PRN (15:37)
[2017-11-05] MEDS ORDERED: Levalbuterol 0.63MG/3ML NEB* UNIT OF USE INH PRN (15:37)
[2017-11-05] MEDS ORDERED: fentaNYL* 50 MCG/ML 2 ML VIAL (100 MCG VIAL) IV PRN (15:37)
[2017-11-05] MEDS ORDERED: Naloxone* 0.4 MG/ML 1 ML VIAL IV PRN (15:37)
[2017-11-05] MEDS ORDERED: Propofol* 10 MG/ML 20 ML BTL IV PUSH ONE (16:45)
[2017-11-05] MEDS ORDERED: Lidocaine 2% PF * 5 ML VIAL ONE (16:46)
[2017-11-05] MEDS: Mometasone 220 MCG MDI INH SCH (18:29)
--- NOTE | 2017-11-05 20:25 | PN ---
Progress Note - Progress Note Date of Service: 11/05/17 - Gastroenterology Note: Patient seen and examined. Pacemaker inserted yesterday. No blood noted in ostomy. No abdominal pain. Tolerating diet yesterday. Vital Signs: Temp Pulse Resp BP Pulse Ox 97.0 F 116 21 114/85 90 11/05/17 19:41 11/05/17 20:00 11/05/17 20:00 11/05/17 18:00 11/05/17 20:00 GENERAL: NAD. CV: Irregular rhythm, regular rate. PULM: CTAB. ABDOMEN: Soft, NT/ND. Ostomy with brown liquid stool. EXT: No edema. Laboratory Last Values WBC 14.0 10^3/ul (3.5-10.8) H 11/04/17 05:45 RBC 4.23 10^6/ul (4.0-5.4) 11/04/17 05:45 Hgb 13.7 g/dl (14.0-18.0) L 11/04/17 05:45 Hct 41 % (42-52) L 11/04/17 05:45 MCV 98 fL (80-94) H 11/04/17 05:45 MCH 32 pg (27-31) H 11/04/17 05:45 MCHC 33 g/dl (31-36) 11/04/17 05:45 RDW 14 % (10.5-15) 11/04/17 05:45 Plt Count 137 10^3/ul (150-450) L 11/04/17 05:45 MPV 8 um3 (7.4-10.4) 11/04/17 05:45 Neut % (Auto) 86.0 % (38-83) H 11/04/17 05:45 Lymph % (Auto) 4.3 % (25-47) L 11/04/17 05:45 Slope % (Auto) 8.9 % (1-9) 11/04/17 05:45 Eos % (Auto) 0.7 % (0-6) 11/04/17 05:45 Baso % (Auto) 0.1 % (0-2) 11/04/17 05:45 Absolute Neuts (auto) 12.0 10^3/ul (1.5-7.7) H 11/04/17 05:45 Absolute Lymphs (auto) 0.6 10^3/ul (1.0-4.8) L 11/04/17 05:45 Absolute Monos (auto) 1.2 10^3/ul (0-0.8) H 11/04/17 05:45 Absolute Eos (auto) 0.1 10^3/ul (0-0.6) 11/04/17 05:45 Absolute Basos (auto) 0 10^3/ul (0-0.2) 11/04/17 05:45 Absolute Nucleated RBC 0 10^3/ul 11/04/17 05:45 Nucleated RBC % 0 11/04/17 05:45 INR (Anticoag Therapy) 0.94 (0.77-1.02) 11/01/17 05:00 APTT 22.9 seconds (26.0-36.3) L 10/30/17 08:05 Patient Temperature Not Reportable 10/30/17 08:15 ABG pH 7.39 (7.35-7.45) 10/30/17 08:15 ABG pH (Temp Correct) Not Reportable 10/30/17 08:15 ABG pCO2 38 mmHg (35-45) 10/30/17 08:15 ABG pCO2 (Temp Corrct Not Reportable 10/30/17 08:15 ABG pO2 115 mmHg (80-100) H 10/30/17 08:15 ABG pO2 (Temp Correct Not Reportable 10/30/17 08:15 ABG HCO3 23.6 mmol/L (19-31) 10/30/17 08:15 ABG O2 Saturation 99.4 % (95-98) H 10/30/17 08:15 ABG Base Excess -1.7 (-2.0-2.0) 10/30/17 08:15 Respiration Rate Not Reportable 10/30/17 08:15 O2 Delivery Device nasal cannula 6 lpm 10/30/17 08:15 Ventilator Type Not Reportable 10/30/17 08:15 Vent Mode Not Reportable 10/30/17 08:15 FiO2 Not Reportable 10/30/17 08:15 Inspiratory Time Not Reportable 10/30/17 08:15 PEEP Not Reportable 10/30/17 08:15 Pressure Support Not Reportable 10/30/17 08:15 Pressure Control Not Reportable 10/30/17 08:15 EPAP Not Reportable 10/30/17 08:15 IPAP Not Reportable 10/30/17 08:15 BiPAP Not Reportable 10/30/17 08:15 Sodium 135 mmol/L (133-145) 11/04/17 05:45 Potassium 4.4 mmol/L (3.5-5.0) 11/04/17 05:45 Chloride 97 mmol/L (101-111) L 11/04/17 05:45 Carbon Dioxide 34 mmol/L (22-32) H 11/04/17 05:45 Anion Gap 4 mmol/L (2-11) 11/04/17 05:45 BUN 19 mg/dL (6-24) 11/04/17 05:45 Creatinine 0.71 mg/dL (0.67-1.17) 11/04/17 05:45 Est GFR ( Amer) 147.6 (>60) 11/04/17 05:45 Est GFR (Non-Af Amer) 114.8 (>60) 11/04/17 05:45 BUN/Creatinine Ratio 26.8 (8-20) H 11/04/17 05:45 Glucose 87 mg/dL (70-100) 11/04/17 05:45 Lactic Acid 1.3 mmol/L (0.5-2.0) 10/30/17 12:05 Calcium 9.0 mg/dL (8.6-10.3) 11/04/17 05:45 Phosphorus 3.3 mg/dL (2.5-5.0) 11/02/17 05:35 Magnesium 1.7 mg/dL (1.9-2.7) L 11/04/17 05:45 Total Bilirubin 0.60 mg/dL (0.2-1.0) 11/01/17 05:00 AST 29 U/L (13-39) 11/01/17 05:00 ALT 143 U/L (7-52) H 11/01/17 05:00 Alkaline Phosphatase 67 U/L (34-104) 11/01/17 05:00 Total Creatine Kinase 45 U/L (10-223) 10/30/17 08:05 CK-MB (CK-2) 6.4 ng/mL (0.6-6.3) H 10/30/17 08:05 Troponin I 0.01 ng/mL (<0.04) 10/30/17 08:05 C-Reactive Protein 4.58 mg/L (< 5.00) 10/30/17 08:05 B-Natriuretic Peptide 580 pg/mL (-100) H 11/01/17 05:00 Total Protein 6.2 g/dL (6.4-8.9) L 11/01/17 05:00 Albumin 4.1 g/dL (3.2-5.2) 11/01/17 05:00 Globulin 2.1 g/dL (2-4) 11/01/17 05:00 Albumin/Globulin Ratio 2.0 (1-3) 11/01/17 05:00 Procalcitonin < 0.1 ng/mL (<0.6) 10/30/17 12:05 Urine Color Yellow 10/30/17 23:00 Urine Appearance Cloudy 10/30/17 23:00 Urine pH 5.0 (5-9) 10/30/17 23:00 Ur Specific [place] 1.018 (1.010-1.030) 10/30/17 23:00 Urine Protein 1+(30 mg/dl) (Negative) H 10/30/17 23:00 Urine Ketones Negative (Negative) 10/30/17 23:00 Urine Blood Negative (Negative) 10/30/17 23:00 Urine Nitrate Negative (Negative) 10/30/17 23:00 Urine Bilirubin Negative (Negative) 10/30/17 23:00 Urine Urobilinogen Negative (Negative) 10/30/17 23:00 Ur Leukocyte Esterase Negative (Negative) 10/30/17 23:00 Urine WBC (Auto) 1+(6-10/hpf) (Absent) H 10/30/17 23:00 Urine RBC (Auto) Trace(0-2/hpf) (Absent) 10/30/17 23:00 Urine Bacteria Absent (Absent) 10/30/17 23:00 Hyaline Casts Present (Absent) H 10/30/17 23:00 Urine Glucose Negative (Negative) 10/30/17 23:00 Digoxin 1.2 ng/ml (0.8-2.0) 11/03/17 06:24 Influenza A (Rapid) Negative (Negative) 10/30/17 09:10 Influenza B (Rapid) Negative (Negative) 10/30/17 09:10 A/P 56 yo male with COPD and moderate emphysema on O2 per nasal canula and hx of UC in the past s/p colectomy and ileostomy p/w Afib with RVR and found to have tachybrady syndrome s/p pacemaker placement yesterday. Cardiology requested GI consultation for hx of melena in the past while on Xarelto 7 months ago. No bleeding during this admission. Hgb is stable. 1. Hx of melena in the setting of anticoagulation ~No episodes of GI bleeding during admission. ~In need of anticoagulation per cardiology. ~EGD today revealed moderate gastroduodenitis and Ileoscopy to 90cm was unremarkable. ~Clotest to r/o H.pylori pending. ~On PPI daily. ~May start anticoagulation if needed tomorrow since EGD and ileoscopy are essentially unremarkable. If patient bleeds, will consider video capsule endoscopy for further evaluation of small bowel for GI bleeding. 2. COPD with moderate emphysema on O2 3. Afib with tachybrady ~s/p pacemaker insertion yesterday. ~Possible cardioversion tomorrow per cards. 4. Hx of UC s/p colectomy with ileostomy 5. Hx of intermittent dysphagia to liquids and solids ~EGD revealed tight GEJ. ~May have achalasia. ~Work-up can be done as an outpatient once more stable with UGI series and esophageal manometry. D/w Dr. Perez. Please call us with any further questions or concerns. Cassia Ramos D.O.
[2017-11-06] MEDS: Acetaminophen TAB* 325 MG PO PRN ×2 (02:51→16:33)
[2017-11-06] MEDS: Metoprolol Tartrate TAB* 50 mg PO SCH ×4 (02:51→19:36)
[2017-11-06] MEDS: Clindamycin 300 MG IVPREMIX(* 300 MG/50 ML SDV IV SCH ×3 (02:53→19:36)
[2017-11-06] MEDS: Levalbuterol 1.25MG/0.5ML NEB INH PRN (07:48)
[2017-11-06] MEDS: Magnesium Oxide TAB* 400 MG PO SCH (08:43)
[2017-11-06] MEDS: Famotidine TAB* 20 MG PO SCH (08:43)
[2017-11-06] MEDS: predniSONE TAB* 20 MG PO SCH (08:44)
[2017-11-06] MEDS: cefTRIAXone(*) 1 GM in D5W 50 ML BAG* 50 ML IVPB SCH (11:30)
[2017-11-06] MEDS: Enoxaparin(*) 60 MG/0.6 ML SYR SUBCUT SCH ×2 (12:30→22:32)
--- NOTE | 2017-11-06 14:25 | PN ---
Date of Service: 11/06/17 - [facility] note Critical Care Services: Pt seen and examined at bedside, no acute events o/n, no new compalints, was NPO this morning for possible cardioversion, pt requesting food. Denies SOB, chest pain Vital Signs: Temp Pulse Resp BP SpO2 FiO2 99.1 F 108 23 117/77 92 100 11/06/17 11:47 11/06/17 12:00 11/06/17 12:00 11/06/17 12:00 11/06/17 12:00 11/06 04:00 Physical Exam: Gen: Pt in NAD HEENT:PERRLA, No JVD, no scleral icterus Lungs: Clear to auscultation b/l Cardiac: S1, S2+, irregular Abdomen: Soft, BS+ Extremities: trace edema, RUE with PIV Neuro: Alert, awake, no focal defecits Skin no diaphoresis, no cyanosis, (+)tattoos PLAN/REC: Cardiology adjusting rate control meds re A Fib GI evaluation as planned Bronchodilator inhalers Prednisone Continue Abx DVT prophyl to continue NPO pending endoscopy Obtain PICC for reliable access Fluid Balance (Past 24 Hours): I= 1470 M=3344 Net-1725 Intake & Output 11/04/17 11/05/17 11/06/17 11/07/17 06:59 06:59 06:59 06:59 Intake Total 482 1318 1470 Output Total 2150 5250 3600 1725 Balance -1668 -3932 -2130 -1725 Weight 135 lb 2.294 oz 147 lb 7.828 oz 140 lb 3.424 oz Intake: IV Fluids 93 912 840 LR 300 NS to Maintain IV Patency 64 733 540 abx 29 179 IVPB 55 100 abx 55 100 Medicated IV 334 406 GEN - Diltiazem/Cardizem 334 406 Oral 530 Output: Urine 1600 3500 2600 1300 [place] 1500 Liquid Stool 200 Colostomy 250 550 Ileostomy 350 450 425 Other: Estimated Void Medium # Voids 1 Labs: No new labs Studies: KATINA scheduled for today Nutrition: NPO after breakfast for KATINA this afternoon Impression: 1.Paroxysmal A Fib with RVR s/p PPM for KATINA and possible cardioversion 2.Advanced COPD/Emphysema, not in acute exacerbation 3. Cardiomyopathy 4. Leucocytosis, sec to steroids versus sepsis 5. ? CAP, has been on Ceftriaxone since admission day#02/25 6.Hx Ulc Colitis with colectomy and ileostomy in past 7. Hx GI bleeding several months ago leading to D/C of Xarelto, s/p upper and lower endoscopy 11/05, no active bleeding noted Plan: 1. Neuro: No issues, alert, oriented x4 2. CVS: Paroxysmal A.fib with RVR, converted to sinus again recently, plan for KATINA this afternoon and possible cardioversion. Started on anticoagulation this morning. Hemodynamically stable. On metoprolol 3. ID: Has been on Rocephin for possible CAP day#02/25, started on Clindamycin post PICC line placement by Dr Chavez. ? Need for abx. Will stop Rocephin tomorrow, will check with Cardio need for Clinda. Leucocytosis trending down, could also be from steroids. CXR from yesterday didnot show air space opacities concerning for PNA 4. Resp: H/o COPD, stable with no recent exacerbation, Has required high flow in the past, on 3L nasal cannula. c/w bronchodilators 5.Renal: Good UO, renal function normal, juliette lectrolyte abnroamlities, rpt labs from today are pending 6. GI: Will be NPO for KATINA this afternoon. c/w PPI. Pt had upper and lower endoscopy yesterday, no active bleeding noted, biopsy was negative, started on anticoagulation 7. Musculoskeltal: Trace edema of extremities, no DVT. 8. Endo: Bl sugars are within normal limits 9. Haem: Leucocytosis, on emperic coverage for PNA, lactic acidosis resolved, will likely d/c abx tomorrow 10. DVT px: On Lovenox IV access: Peripheral Critical Care Time: 35 min
--- NOTE | 2017-11-06 18:47 | PRO ---
CC: Dr. Heredia; Dr. Beauchamp; Dr. Cassia Ramos GASTROENTEROLOGY OPERATIVE REPORT: DATE OF PROCEDURE: 11/05/17 OPERATIVE PROCEDURE: Esophagogastroduodenoscopy to third portion of duodenum. SURGEON: Cassia Ramos MD ANESTHESIA: MAC. HISTORY OF PRESENT ILLNESS: Ramesh is a very pleasant 56-year-old male with a history of COPD, moderate emphysema on O2 per nasal cannula, who presented with AFib with RVR and tachybrady syndrome. He is postop day 1 of pacemaker placement. Gastroenterology was consulted for previous history of melena while on Xarelto therapy approximately 7 months ago. Since his admission to the hospital, there have not been signs of gastrointestinal bleeding; however, Cardiology would like to place him on anticoagulation due to his atrial fibrillation, hence Gastroenterology was consulted for further evaluation of these previous episodes of GI bleeding. He has no prior history of an endoscopy and colonoscopy. Denies family history of gastrointestinal malignancies. He does admit to occasional dysphagia to solids and liquids. PREOPERATIVE DIAGNOSIS: 1. History of melena under the setting of anticoagulation. POSTOPERATIVE DIAGNOSES: 1. LA grade A distal esophagitis with biopsies. 2. Gastritis with biopsies from the antrum, body and CLOtest to rule out Helicobacter pylori. 3. Normal mid and proximal esophagus. 4. Moderate erythema consistent with duodenitis of the first, second and third portion of the duodenum. 5. Decreased motility at the gastroesophageal junction. RECOMMENDATIONS: 1. We will follow up with path results. 2. We will proceed forward with an ileoscopy. 3. Recommend PPI therapy daily. 4. The patient should also followup in our office as an outpatient. Given his history of dysphagia to solids and liquids and endoscopic findings of a decreased motility at the gastroesophageal junction, he will need to be worked up for possible achalasia in the future by manometry. DESCRIPTION OF PROCEDURE: Esophagogastroduodenoscopy was explained in detail to the patient. The risks, benefits, complications, alternatives, possibilities of missed lesions were explained and understood. Complications included, but were not limited to reaction to anesthesia, aspiration, increased risk of bleeding and perforation. All questions were answered. The patient demonstrated understanding of the conversation. Informed consent was obtained. Next, the patient was brought to the endoscopy suite, placed in the left lateral recumbent position, where blood pressure, cardiac, and oxygen monitors were applied. The patient was found to be a fit candidate for monitored anesthesia care. After adequate IV sedation was achieved, a bite block was placed. Next, a standard adult Olympus endoscope was inserted per os under direct visualization to the first and second portion and the third portions of the duodenum. There appeared to be moderate erythema; however, no ulcerative disease were noted. The major and minor papilla were visualized. Cold forceps biopsies were obtained from these areas. Further withdrawal of the endoscope into the gastric lumen revealed moderate gastritis. Cold forceps biopsies were obtained from the antrum and body. A CLOtest was also performed to rule out H. pylori. On retroflexion, the patient had normal gastric, cardia sling. Further withdrawal of the endoscope to the distal esophagus revealed fairly tight appearing gastroesophageal junction consistent with decreased motility. The rest of the tubular esophagus was normal appearing. Air was then removed from the patient. Endoscope was removed from the patient. The patient tolerated the procedure well. There were no immediate complications. 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 Thank you, Dr. Beauchamp, for allowing us to participate in the care of your patient. If you should have any further questions or concerns, please do not hesitate to contact us. [id number]/[facility] #: [id number] ELIUD
--- NOTE | 2017-11-06 18:47 | PRO ---
CC: Dr. Heredia; Dr. Beauchamp; Dr. Perez; Dr. Ramos GASTROENTEROLOGY OPERATIVE REPORT: DATE OF PROCEDURE: 11/05/17 OPERATIVE PROCEDURE: Ileoscopy to 90 cm. SURGEON: Cassia Ramos DO HISTORY OF PRESENT ILLNESS: Ozzie is a very pleasant 56-year-old gentleman with a history of COPD; severe emphysema, on oxygen per nasal cannula, who presented in AFib with RVR and tachy-alina syndrome. He is postop day #1 from pacemaker placement yesterday. He is currently stable. He has a history of melena in the distant past while on anticoagulation. Due to recent cardiac events, Cardiology would like to restart him on anticoagulation and requested a Gastroenterology consultation for further evaluation of previous history of GI bleeding. He has a history of ulcerative colitis and is status post colectomy with an ileostomy. Denies family history of gastrointestinal malignancies. No gastrointestinal complaints on this admission in the hospital. PREOPERATIVE DIAGNOSES: 1. History of melena. 2. Need for anticoagulation. 3. Ulcerative colitis, status post colectomy with ileostomy. 4. Diagnostic colonoscopy. POSTOPERATIVE DIAGNOSES: 1. Normal-appearing ileum to 90 cm. 2. Good intestinal preparation. RECOMMENDATIONS: 1. Given negative endoscopic and colonoscopic findings, the patient may be started on anticoagulation. If he rebleeds, may need a videocapsule endoscopy in the future to evaluate the rest of his small bowel. Findings were discussed with Dr. Perez, duplicating machine operator. We will continue to follow along closely after anticoagulation is started. DESCRIPTION OF PROCEDURE: Ileoscopy was explained in detail to the patient. The risks, benefits, complications, alternatives, possibilities of missed lesions were explained and understood. Complications included, but were not limited to, reaction to anesthesia, aspiration, increased risk of bleeding and perforation. All questions were answered. The patient demonstrated understanding of the conversation and informed consent was obtained. Next, the patient was brought to the endoscopy suite, placed in the left lateral recumbent position where blood pressure, cardiac, and oxygen monitors were applied. The patient was found to be a fit candidate for moderate anesthesia care. After adequate IV sedation was achieved, ileostomy site was examined for any masses. The pediatric colonoscope was slowly inserted through the ostomy site and was maneuvered all the way to 90 cm of the ileum. There were no gross abnormalities noted. Overall, the preparation was good. The patient appeared to have normal vasculature and small bowel mucosa. The colonoscope was then withdrawn from the ostomy site. Ostomy site was normal- appearing. The patient tolerated the procedure well. There were no immediate complications. After a period of observation, the patient was transferred back to the intensive care for further evaluation, treatment, and care. Thank you, Dr. Beauchamp and Dr. Perez for allowing us to participate in the care of your patient. If you should have any further questions or concerns, please do not hesitate to contact us. [id number]/[facility] #: [id number] ELIUD
--- NOTE | 2017-11-06 20:10 | OP ---
CC: Dr. Saol Kennedy PACEMAKER IMPLANTATION: DATE OF OPERATION: 11/04/17 DATE OF : 60 SURGEON: Annmarie Chavez MD ANESTHESIA: MAC via Anesthesiology, see separate notes. PRE-OP DIAGNOSES: Syncope and sick sinus syndrome. POST-OP DIAGNOSES: Syncope and sick sinus syndrome. The patient was in atrial fibrillation with a rapid ventricular rate at the time of pacemaker implant ation. OPERATIVE PROCEDURE: Implantation of a dual-chamber pacemaker. ESTIMATED BLOOD LOSS: Less than 1 cc. COMPLICATIONS: None. DESCRIPTION OF PROCEDURE: The indications, risks, and benefits were discussed in depth with the urban ent. We discussed the fact that with his COPD, he has increased risk for pneumothorax and we discuss ed that with current steroids, he was at increased risk of infection over baseline and bleeding and h e was amenable to proceeding. The left subclavian fossa was prepped and draped in the usual sterile fashion. A time-out procedure was called. The patient received 10 cc of radiopaque dye in the left upper extremity outlining the l eft axillary and left subclavian veins. Following this, the patient received 1% lidocaine in the left subclavian fossa for local anesthesia and following this using a 10-blade knife, a 2.5-cm incision w as made in the left subclavian fossa and using Bovie and blunt dissection, was extended to the level of the pectoralis muscle. Additional lidocaine was infused inferiorly and medially and using blunt d issection, a small pocket was fashioned. Using fluoroscopic guidance and a modified Seldinger techniq ue, the left axillary vein was cannulated and a guidewire inserted and this was repeated with the sec ond guidewire. Using fluoroscopic guidance, the right ventricular lead was guided into the right collin tricular apex and actively fixed in place. Pacing and sensing thresholds were checked and found to b e good. Using the second guidewire and a second introducer, a lead was guided into the right atrial appendage , actively fixed in place. The patient had good sensing. We are unable to check pacing due to the a trial fibrillation. Lead impedance was stable. The ventricular lead was sutured to the pocket using 0 silk suture, taking care that enough slack was there and trying to reposition the atrial lead, the atrial lead then dislodged. The coil was retrac maegan, the lead was repositioned and the left atrial appendage actively fixed in place again and sensin g was again good and lead impedance was again stable. At this time, we are able to suture the atrial lead to the pocket using 0 silk suture without incident. The leads were then again checked, found t o have excellent sensing, ventricular pacing, and lead impedances were stable. The pocket was then c opiously irrigated. The leads were attached to the generator. The generator was placed in the pocke t and the incision was closed using 2 layers of absorbable suture, 2-0 followed by 4-[address] aples and an external dressing. The patient was hemodynamically stable throughout the procedure and on returned to the floor. FINDINGS: The system is an MRI compatible system. The device is a [employer] model A2DR01, serial nu mber [id number]. The atrial lead is a Medtronic model 5076-52, serial number [id number] and the vent ricular lead is a Medtronic model 5076-58, serial number [id number]. Due to AFib, we could not undergo any atrial pacing, but P-waves were sensed at 2 millivolts with an atrial lead impedance of 688 ohms. The V-wave had R-wave sensed at 9.7 millivolts, ventricular lead impedance of 900 ohms, and a ventricular pacing threshold of 0.6 volts at 0.5 milliseconds. The patient was programmed in VVI mode with low rate of 60 beats a minute and upper tracking rate of 130 beats a minute. [id number]/[facility] #: [id number]
[2017-11-06 21:01] LABS: ABS Basophils 0.1 10^3/ul (0-0.2); ABS Eosinophils 0 10^3/ul (0-0.6); ABS Lymphocytes 0.3 10^3/ul (1.0-4.8); ABS Monocytes 0.9 10^3/ul (0-0.8); ABS Neutrophils 10.2 10^3/ul (1.5-7.7); ABS Nucleated RBC 0 10^3/ul; Eosinophil % 0.3 % (0-6); Hematocrit 44 % (42-52); Lymphocyte % 2.8 % (25-47); Mean Corpuscular HGB Conc 34 g/dl (31-36); Mean Corpuscular Hemoglobin 33 pg (27-31); Mean Corpuscular Volume 96 fL (80-94); Mean Platelet Volume 8 um3 (7.4-10.4); Nucleated Red Blood Cells % 0; Platelet Count 136 10^3/ul (150-450); Red Blood Count 4.59 10^6/ul (4.0-5.4); Red Cell Distribution Width 14 % (10.5-15); White Blood Count 11.5 10^3/ul (3.5-10.8)
[2017-11-06 21:14] LABS: EGFR Non-African American 111.1 (>60)
[2017-11-06] MEDS: QUEtiapine TAB* 25 MG PO PRN (22:30)
[2017-11-06] MEDS: Mometasone 220 MCG MDI INH SCH (23:53)
[2017-11-07] MEDS: Metoprolol Tartrate TAB* 50 mg PO SCH ×5 (02:42→23:47)
[2017-11-07] MEDS: Metoprolol Tartrate IV* 1 MG/ML 5 ML VIAL IV PRN (03:32)
[2017-11-07] MEDS: Clindamycin 300 MG IVPREMIX(* 300 MG/50 ML SDV IV SCH ×2 (04:05→11:57)
[2017-11-07] MEDS: Famotidine TAB* 20 MG PO SCH (08:08)
[2017-11-07] MEDS: Magnesium Oxide TAB* 400 MG PO SCH (08:08)
[2017-11-07] MEDS: predniSONE TAB* 20 MG PO SCH (08:08)
--- NOTE | 2017-11-07 09:01 | PN ---
Subjective Date of Service: 11/07/17 Interval History: Mr. Yen denies any complaint and is eager for discharge tomorrow. He denies palpitations and states that he can't feel it when his heart rate is 150. He further denies chest pain, SOB, nausea, or abdominal pain. Objective Active Medications: Acetaminophen (Tylenol Tab*) 650 mg PO Q4H PRN Albuterol (Ventolin 2.5 Mg/3 Ml Neb.Leona*) 2.5 mg INH Q4H PRN Enoxaparin Sodium (Lovenox(*)) 60 mg SUBCUT Q12H JUSTIN Famotidine (Pepcid Tab*) 20 mg PO DAILY [facility] Ceftriaxone Sodium 1 gm/ (Dextrose) 50 mls @ 200 mls/hr IVPB Q24H [facility] Clindamycin HCl/Dextrose (Cleocin 300 Mg Ivpemix(*)) 300 mg in 50 mls @ 200 mls /hr IV Q8H JUST[facility] Levalbuterol HCl (Xopenex 1.25 Mg/0.5 Ml Neb.Leona*) 1.25 mg INH Q2H PRN Lorazepam (Ativan Inj*) 1 mg IV PUSH Q4H PRN Magnesium Oxide (Magox 400 Tab*) 400 mg PO DAILY JUSTIN Metoprolol Tartrate (Lopressor Iv*) 5 mg IV Q4H PRN Metoprolol Tartrate (Lopressor Tab*) 50 mg PO Q6H [facility] Mometasone Furoate (Asmanex 220 Mcg Mdi *) 2 puff INH QPM [facility] Morphine Sulfate (Morphine Inj (Syringe)*) 2 mg IV Q4H PRN Prednisone (Deltasone Tab*) 40 mg PO DAILY [facility] Quetiapine Fumarate (Seroquel Tab*) 50 mg PO DAILY PRN Vital Signs: Temp Pulse Resp BP Pulse Ox 98.9 F 132 17 109/91 93 11/07/17 04:00 11/07/17 07:57 11/07/17 07:57 11/07/17 03:22 11/07/17 07:57 Oxygen Devices in Use Now: None Appearance: Male sitting up in bed in NAD Eyes: No Scleral Icterus Ears/Nose/Mouth/Throat: Mucous Membranes Moist Neck: Trachea Midline Respiratory: Symmetrical Chest Expansion and Respiratory Effort, - - Minimal wheezing with expiration Cardiovascular: NL Sounds; No Murmurs; No JVD, No Edema Abdominal: NL Sounds; No Tenderness; No Distention Lymphatic: No Cervical Adenopathy Extremities: No Edema Skin: No Rash or Ulcers Neurological: Alert and Oriented x 3, NL Muscle Strength and Tone Nutrition: Taking PO's Result Diagrams: 11/06/17 20:45 11/06/17 20:45 Microbiology and Other Data: . Assess/Plan/Problems-Billing Assessment: Mr. Yen is a 56 yo male with a PMH of afib (not on anticoagulation) and COPD who was admitted on 10/30/17 with SOB found to be in rapid afib with question of pneumonia. - Patient Problems (1) Atrial fibrillation Comment: - HR uncontrolled this AM, but has now converted to NSR. - Appreciate cardiology consultation. Pacemaker placed 11/04/17. - Increased metoprolol. - Echo with EF 30-35% - Anticoagulation had been held due to concern for GI bleed in the past but EGD found to evidence of bleeding and patient has been approved to start anticoagulation per GI. - Switch to xarelto. (2) COPD (chronic obstructive pulmonary disease) Comment: - Continue prednisone, mometasone. (3) Pneumonia Comment: - Afebrile, no leukocytosis, not hypoxic. - Day 7/7 of ceftriaxone. (4) Hypertension Comment: - Continue metoprolol. (5) Colostomy in place Comment: - Hx ulcerative colitis. (6) Alcoholism Comment: - Chronic issue, no evidence of withdrawal. (7) DVT prophylaxis Comment: - Lovenox BID. (8) Full code status Comment: Status and Disposition: Inpatient. Anticipate discharge to home when medically stable.
[2017-11-07] MEDS ORDERED: Magnesium Sulfate 2 GM IV* 2 GM/50 ML BAG IVPB ONE (09:35)
[2017-11-07] MEDS ORDERED: Metoprolol Tartrate TAB* 25 MG PO ONE (09:36)
[2017-11-07] MEDS: Enoxaparin(*) 60 MG/0.6 ML SYR SUBCUT SCH (11:30)
[2017-11-07] MEDS: cefTRIAXone(*) 1 GM in D5W 50 ML BAG* 50 ML IVPB SCH (11:30)
--- NOTE | 2017-11-07 12:47 | PN ---
Subjective Date of Service: 11/07/17 - CC: WHIET Interval History: The patient gets mildly winded walking. Medications Active Medications: Acetaminophen (Tylenol Tab*) 650 mg PO Q4H PRN PRN Reason: PAIN Last Admin: 11/06/17 16:33 Dose: 650 mg Albuterol (Ventolin 2.5 Mg/3 Ml Neb.Leona*) 2.5 mg INH Q4H PRN PRN Reason: WHEEZING Last Admin: 11/01/17 16:55 Dose: 2.5 mg Enoxaparin Sodium (Lovenox(*)) 60 mg SUBCUT Q12H [facility] Last Admin: 11/07/17 11:30 Dose: 60 mg Famotidine (Pepcid Tab*) 20 mg PO DAILY [facility] Last Admin: 11/07/17 08:08 Dose: 20 mg Ceftriaxone Sodium 1 gm/ (Dextrose) 50 mls @ 200 mls/hr IVPB Q24H [facility] Stop: 11/08/17 12:00 Last Admin: 11/07/17 11:30 Dose: 200 mls/hr Clindamycin HCl/Dextrose (Cleocin 300 Mg Ivpemix(*)) 300 mg in 50 mls @ 200 mls /hr IV Q8H [facility] Last Admin: 11/07/17 11:57 Dose: 200 mls/hr Levalbuterol HCl (Xopenex 1.25 Mg/0.5 Ml Neb.Leona*) 1.25 mg INH Q2H PRN PRN Reason: WHEEZING Last Admin: 11/06/17 07:48 Dose: 1.25 mg Lorazepam (Ativan Inj*) 1 mg IV PUSH Q4H PRN PRN Reason: ANXIETY Magnesium Oxide (Magox 400 Tab*) 400 mg PO DAILY [facility] Last Admin: 11/07/17 08:08 Dose: 400 mg Metoprolol Tartrate (Lopressor Iv*) 5 mg IV Q4H PRN PRN Reason: HEART RATE/PULSE GREATER THAN: Last Admin: 11/07/17 03:32 Dose: 5 mg Metoprolol Tartrate (Lopressor Tab*) 50 mg PO Q6H [facility] Last Admin: 11/07/17 07:18 Dose: 50 mg Mometasone Furoate (Asmanex 220 Mcg Mdi *) 2 puff INH QPM [facility] Last Admin: 11/06/17 23:53 Dose: Not Given Morphine Sulfate (Morphine Inj (Syringe)*) 2 mg IV Q4H PRN PRN Reason: PAIN/ WORK OF BREATHING Last Admin: 11/02/17 17:33 Dose: 2 mg Prednisone (Deltasone Tab*) 40 mg PO DAILY [facility] Last Admin: 11/07/17 08:08 Dose: 40 mg Quetiapine Fumarate (Seroquel Tab*) 50 mg PO DAILY PRN PRN Reason: sleep Last Admin: 11/06/17 22:30 Dose: 50 mg Objective Vital Signs: Temp Pulse Resp BP Pulse Ox 98.6 F 160 18 106/80 99 11/07/17 07:18 11/07/17 09:11 11/07/17 08:00 11/07/17 09:15 11/07/17 12:00 Oxygen Devices in Use Now: None Appearance: lean, fit appearing middle aged man, looks healthier than he is. Eyes: No Scleral Icterus, PERRLA Ears/Nose/Mouth/Throat: Clear Oropharnyx, Mucous Membranes Moist Neck: Trachea Midline, No Thyroid Enlargement, Masses Respiratory: Symmetrical Chest Expansion and Respiratory Effort - distant breath sounds, fine wheezing. Cardiovascular: NL Sounds; No Murmurs; No JVD - irregularly irregular. Abdominal: NL Sounds; No Tenderness; No Distention - stoma noted. Lymphatic: No Cervical Adenopathy, No Axillary Adenopathy Extremities: No Edema Skin: No Rash or Ulcers - pacer site L subclavian fossa stable, mild ecchymosis unchanged. No hematoma., - Neurological: Alert and Oriented x 3, NL Gait, NL Muscle Strength and Tone Lines/Tubes/Other Access: Clean, Dry and Intact Peripheral IV Laboratory Results: 11/06/17 20:45 11/06/17 20:45 INR (Anticoag Therapy) 0.94 (0.77-1.02) 11/01/17 05:00 APTT 22.9 seconds (26.0-36.3) L 10/30/17 08:05 Total Bilirubin 0.60 mg/dL (0.2-1.0) 11/01/17 05:00 AST 29 U/L (13-39) 11/01/17 05:00 ALT 143 U/L (7-52) H 11/01/17 05:00 Alkaline Phosphatase 67 U/L (34-104) 11/01/17 05:00 CK-MB (CK-2) 6.4 ng/mL (0.6-6.3) H 10/30/17 08:05 B-Natriuretic Peptide 580 pg/mL (-100) H 11/01/17 05:00 Total Protein 6.2 g/dL (6.4-8.9) L 11/01/17 05:00 Albumin 4.1 g/dL (3.2-5.2) 11/01/17 05:00 Globulin 2.1 g/dL (2-4) 11/01/17 05:00 Albumin/Globulin Ratio 2.0 (1-3) 11/01/17 05:00 Diagnostic Imaging: Echo: EF 35%, atria normal in size (while in a fib, rapid ventricular response) . EKG Data: Monitor: afib, rapid ventricular rate. (recurred from NSR seen 11/06/17). Assessment/Plan 56 yo with COPD, Ulcerative colitis, PAF arrived with hx recent recurrent syncope, severe acute SOB and found in afib, RVR in ED. In and out of afib here , occasionally has SNRT (long pause with CV to sinus rhythm). POD #3 dual chamber pacer implant, good function on interrogation and good lead placement on CXRs. Improving, feels better. CM: Possible tachycardic induced. Plan: -Titrate metoprolol to rate control if lungs tolerate. -Continue anticoagulation. OK to stop IV clindamycin. OK to discharge in Afib, f/u wound check w ith Dr. Chavez next week and f/u with Dr. Clark 1-2 weeks for PAF, CM follow up. . COPD: Clincially improved, steroid taper per hospitalists.
[2017-11-07] MEDS: Acetaminophen TAB* 325 MG PO PRN (16:22)
[2017-11-07] MEDS: Albuterol 2.5 MG/3 ML NEB.SOL* (0.083%) INH PRN (19:51)
[2017-11-07] MEDS ORDERED: Mometasone 220 MCG MDI INH SCH (21:00)
[2017-11-07] MEDS ORDERED: Rivaroxaban TAB(*) 20 MG TAB PO ONE (23:00)
[2017-11-08] MEDS: QUEtiapine TAB* 25 MG PO PRN (02:40)
[2017-11-08] MEDS: Metoprolol Tartrate TAB* 50 mg PO SCH (06:50)
[2017-11-08 08:14] VITALS: BP 118/76
[2017-11-08] MEDS: Albuterol 2.5 MG/3 ML NEB.SOL* (0.083%) INH PRN (08:14)
[2017-11-08] MEDS: predniSONE TAB* 20 MG PO SCH (08:15)
[2017-11-08] MEDS: Famotidine TAB* 20 MG PO SCH (08:16)
[2017-11-08] MEDS: Magnesium Oxide TAB* 400 MG PO SCH (08:16)
--- NOTE | 2017-11-08 09:07 | PN ---
Subjective Date of Service: 11/08/17 Interval History: Ms. Yen states that he is feeling well today and he is eager for discharge to home. Objective Active Medications: Acetaminophen (Tylenol Tab*) 650 mg PO Q4H PRN Albuterol (Ventolin 2.5 Mg/3 Ml Neb.Leona*) 2.5 mg INH Q4H PRN Famotidine (Pepcid Tab*) 20 mg PO DAILY [facility] Ceftriaxone Sodium 1 gm/ (Dextrose) 50 mls @ 200 mls/hr IVPB Q24H [facility] Levalbuterol HCl (Xopenex 1.25 Mg/0.5 Ml Neb.Leona*) 1.25 mg INH Q2H PRN Lorazepam (Ativan Inj*) 1 mg IV PUSH Q4H PRN Magnesium Oxide (Magox 400 Tab*) 400 mg PO DAILY JUST[facility] Metoprolol Tartrate (Lopressor Iv*) 5 mg IV Q4H PRN Metoprolol Tartrate (Lopressor Tab*) 75 mg PO Q6H [facility] Mometasone Furoate (Asmanex 220 Mcg Mdi *) 2 puff INH 2100 JUSTIN Morphine Sulfate (Morphine Inj (Syringe)*) 2 mg IV Q4H PRN Prednisone (Deltasone Tab*) 40 mg PO DAILY [facility] Quetiapine Fumarate (Seroquel Tab*) 50 mg PO DAILY PRN Vital Signs: Temp Pulse Resp BP Pulse Ox 98.0 F 60 17 118/76 98 11/08/17 07:31 11/08/17 07:52 11/08/17 07:52 11/08/17 07:31 11/08/17 07:52 Oxygen Devices in Use Now: None Appearance: Male sitting up in bed in NAD Eyes: No Scleral Icterus Ears/Nose/Mouth/Throat: NL Teeth, Lips, Gums, Mucous Membranes Moist Neck: Trachea Midline Respiratory: Symmetrical Chest Expansion and Respiratory Effort, Clear to Auscultation Cardiovascular: NL Sounds; No Murmurs; No JVD, No Edema Abdominal: NL Sounds; No Tenderness; No Distention Lymphatic: No Cervical Adenopathy Extremities: No Edema Skin: No Rash or Ulcers Neurological: Alert and Oriented x 3, NL Muscle Strength and Tone Nutrition: Taking PO's Result Diagrams: 11/06/17 20:45 11/06/17 20:45 Microbiology and Other Data: . Assess/Plan/Problems-Billing Assessment: Mr. Yen is a 56 yo male with a PMH of afib (not on anticoagulation) and COPD who was admitted on 10/30/17 with SOB found to be in rapid afib with question of pneumonia. - Patient Problems (1) Atrial fibrillation Comment: - Rate controlled. - Appreciate cardiology consultation. Pacemaker placed 11/04/17. - Continue metoprolol. - Echo with EF 30-35% - Anticoagulation had been held due to concern for GI bleed in the past but EGD found to evidence of bleeding and patient has been approved to start anticoagulation per GI. - Switch to xarelto. (2) COPD (chronic obstructive pulmonary disease) Comment: - Taper prednisone, continue mometasone. (3) Pneumonia Comment: - Afebrile, no leukocytosis, not hypoxic. - Day 7/7 of ceftriaxone. (4) Hypertension Comment: - Continue metoprolol. (5) Colostomy in place Comment: - Hx ulcerative colitis. (6) Alcoholism Comment: - Chronic issue, no evidence of withdrawal. (7) DVT prophylaxis Comment: - Xarelto. (8) Full code status Comment: Status and Disposition: Inpatient. Discharge to home.
--- NOTE | 2017-11-09 06:55 | DS ---
CC: Dr. Heredia * [facility] DISCHARGE SUMMARY: DATE OF ADMISSION: 10/30/17 DATE OF DISCHARGE: 11/08/17 PRIMARY CARE PHYSICIAN: Dr. Heredia ATTENDING PHYSICIAN: Roger Hollis MD * (dictation provided by Jodie German NP). PRIMARY DIAGNOSES: 1. Atrial fibrillation with rapid ventricular response. 2. Status post pacemaker placement. 3. Pneumonia. SECONDARY DIAGNOSES: 1. COPD. 2. Hypertension. 3. History of ulcerative colitis with colostomy placement. 4. History of chronic alcoholism. MEDICATIONS: At the time of discharge are: 1. Magnesium oxide 400 mg p.o. daily. 2. Fluticasone 250 mcg one puff inhaled b.i.d. 3. Albuterol inhaler p.r.n. 4. Albuterol nebulizer p.r.n. 5. Salmeterol Diskus one puff inhaled b.i.d. 6. Prednisone 40 mg via taper. 7. Rivaroxaban 20 mg p.o. daily. 8. Metoprolol tartrate 150 mg p.o. b.i.d. HOSPITAL COURSE: Mr. Yen is a 56-year-old male who presented to the hospital on 10/30/17 with concern for shortness of breath. Please see the dictated H and P from Dr. Beauchamp for complete details. In brief, the patient was found to be in atrial fibrillation with rapid ventricular response. He was placed in the intensive care unit on high-flow oxygen and treatment for rapid AFib. He was seen in consultation by Dr. Dickens from Cardiology, who recommended continued treatment with digoxin, Lopressor, and diltiazem as needed for rate control. In addition to AFib, the patient was noted to have concern for infiltrate on chest x-ray with possible pneumonia in the setting of underlying COPD. Mr. Yen was treated for his questionable pneumonia with a full 7-day course of ceftriaxone. He was able to be weaned down to a nasal cannula and then off oxygen. He had multiple medication changes for his atrial fibrillation and ultimately required pacemaker placement on 11/04/17 for sick sinus syndrome. Mr. Yen had had history of AFib but had been off of anticoagulation as there was concern that perhaps he had GI bleeding as there was blood noted in his colostomy bag in the past. Due to his persistent AFib, the patient had further workup with GI including ileoscopy and EGD, which showed no evidence of bleeding. I refer you to the notes from Dr. Ramos from Gastroenterology for complete details, but she indicated that the patient would be appropriate to resume anticoagulation based on the negative scoping. Mr. Yen is doing well today. The remainder of his workup included a transthoracic echocardiogram which showed an ejection fraction of 30% to 35% without evidence of significant valvular or wall motion abnormalities and bilateral venous Dopplers, which showed no deep vein thrombosis Mr. Yen is medically stable to be discharged to home today. He is intermittently in AFib and a paced rhythm, though his rate has remained controlled. He is going to be discharged on an increased dose of metoprolol as well as Xarelto and will follow up with Dr. Chavez. For his pneumonia, he has completed a course of antibiotics and will complete now a prednisone taper. DISPOSITION: To home. DIET: Low fat, low salt. ACTIVITY: As tolerated. FOLLOWUP: 1. Please follow up with Dr. Heredia in the next week. 2. Please follow up with Dr. Chavez in the next month. TIME SEEN: Approximately 60 minutes were spent on the discharge of this patient ; more than half the time was spent with the patient at the bedside reviewing the events and history leading up to this hospitalization, performing the physical examination, and reviewing my plan of care. JODIE GERMAN NP [id number]/[facility] #: [id number] ELIUD
== END 2017-11-08 11:16 | disposition home or self-care (01) | DRG 171 ==
LOC: ED 08:03 → ICU 09:58 → MEDTELE 11-07 03:11
PROVIDERS: ADMIT Internal Medicine Critical Care Medicine; ATTEND Internal Medicine
PROC: 5A09357 Assistance with Respiratory Ventilation, Less than 24 Consecutive Hours, Continuous Positive Airway Pressure (ICD-10-PCS; 2017-11-02)
PROC: 02H73JZ Insertion of Pacemaker Lead into Left Atrium, Percutaneous Approach (ICD-10-PCS; 2017-11-04)
PROC: 02HK3JZ Insertion of Pacemaker Lead into Right Ventricle, Percutaneous Approach (ICD-10-PCS; 2017-11-04)
PROC: 0JH606Z Insertion of Pacemaker, Dual Chamber into Chest Subcutaneous Tissue and Fascia, Open Approach (ICD-10-PCS; principal; 2017-11-04 11:00)
PROC: 0DJD8ZZ Inspection of Lower Intestinal Tract, Via Natural or Artificial Opening Endoscopic (ICD-10-PCS; 2017-11-05)
PROC: 0DB98ZX Excision of Duodenum, Via Natural or Artificial Opening Endoscopic, Diagnostic (ICD-10-PCS; 2017-11-05)
PROC: 0DB78ZX Excision of Stomach, Pylorus, Via Natural or Artificial Opening Endoscopic, Diagnostic (ICD-10-PCS; 2017-11-05)
DX: I49.5 Sick sinus syndrome (principal); A41.9 Sepsis, unspecified organism; J96.01 Acute respiratory failure with hypoxia; J18.9 Pneumonia, unspecified organism; J96.02 Acute respiratory failure with hypercapnia; I42.8 Other cardiomyopathies; E87.2 Acidosis; K51.90 Ulcerative colitis, unspecified, without complications; R13.10 Dysphagia, unspecified; I48.0 Paroxysmal atrial fibrillation; I10 Essential (primary) hypertension; B19.20 Unspecified viral hepatitis C without hepatic coma; J43.9 Emphysema, unspecified; K29.90 Gastroduodenitis, unspecified, without bleeding; K21.0 Gastro-esophageal reflux disease with esophagitis; R60.0 Localized edema; F10.20 Alcohol dependence, uncomplicated; Y90.9 Presence of alcohol in blood, level not specified; Z88.1 Allergy status to other antibiotic agents; Z90.49 Acquired absence of other specified parts of digestive tract; Z93.3 Colostomy status; Z82.49 Family history of ischemic heart disease and other diseases of the circulatory system; Z87.891 Personal history of nicotine dependence; Z91.14 Patient's other noncompliance with medication regimen; Z79.01 Long term (current) use of anticoagulants; Z79.52 Long term (current) use of systemic steroids
CPT/HCPCS: 33208; 36415; 36600; 71045; 71046; 80048; 80053; 80162; 81003; 81015; 82550; 82553; 82803; 83605; 83735; 83880; 84100; 84145; 84484; 85025; 85610; 85730; 86140; 87040; 87077; 87502; 87641; 88305; 93005; 93306; 93308; 93970; 94640; 94660; 94760; 99285; A9270-GY; C1785; C1898; J0456; J0690; J0696; J1160; J1644; J1650; J1940; J2060; J2250; J2270; J2704; J2920; J2930; J3010; J3475; J3490; J7512; Q9967

== ENCOUNTER 2017-11-20 09:35 | Observation (INO) | payer OTHER ==
[2017-11-20] MEDS ORDERED: NS 0.9% 1000 ML* 1,000 ML IV ONE (09:41)
[2017-11-20] MEDS ORDERED: Amiodarone 150 MG IVPREMIX* 150 MG/100 ML BAG IV ONE ×2 (09:41→10:27)
[2017-11-20] MEDS ORDERED: Amiodarone IV VIAL* 3 ML ONE (09:41)
[2017-11-20 10:14] LABS: Hematocrit 42 % (42-52); Hemoglobin 14.2 g/dl (14.0-18.0); Mean Corpuscular HGB Conc 33 g/dl (31-36); Mean Corpuscular Hemoglobin 33 pg (27-31); Mean Corpuscular Volume 97 fL (80-94); Mean Platelet Volume 9 um3 (7.4-10.4); Platelet Count 188 10^3/ul (150-450); Red Blood Count 4.36 10^6/ul (4.0-5.4); Red Cell Distribution Width 14 % (10.5-15); White Blood Count 16.6 10^3/ul (3.5-10.8)
--- NOTE | 2017-11-20 10:15 | RAD ---
INDICATION: Short of breath COMPARISON: November 05, 2017 TECHNIQUE: An AP portable view obtained at 1000 hours is submitted. FINDINGS: Bones/Soft Tissues: There are no acute bony findings. There is a left-sided cardiac pacemaker Cardiomediastinal: The cardiomediastinal silhouette is normal. Lungs: There are no infiltrates. There is mild hyperinflation Pleura: There are no pleural effusions. Other: None IMPRESSION: MILD HYPERINFLATION. NO ACTIVE DISEASE.
--- OUTSIDE RECORDS SUMMARY | 2017-11-20 10:15 | XMS REPORT ---
:1960 External Reference #:[id number] Author Organization [facility] Address [address] [address] Phone [phone] Care Team Providers Name Role Phone Allyn Heredia MD Primary Care Physician Unavailable Payers Type Date Identification Numbers Payment Provider Subscriber Commercial Policy Number: [id number] [employer] Yen Group Number: [id number] [address] PayID: [id number] [place] [address] Commercial Expires: 2016 PayID: [id number] [employer] [address] [place] [address] Problems Description No Information Social History Type Date Description Comments Marital Status Single Occupation Currently Working [employer] Cigarette Use Former Cigarette Smoker 1/2 Pack Daily ETOH Use Drinks 2 Alcoholic Beverages Per Day Recreational Drug Use Denies Drug Use Smoking Patient is a former smoker quit 2017 Smoking Light tobacco smoker (10 or fewer cigarettes/day) Daily Caffeine Does Not Consume Caffeine Exercise Type/Frequency Does not exercise Allergies, Adverse Reactions, Alerts Date Description Reaction Status Severity Comments 11/12/2017 Cipro swelling and redness w/IV active Medications Medication Date Status Form Strength Qnty SIG Indications Ordering Provider Fluticasone 11/12/ Active 250mcg one puff Annmarie 2017 inhaled bid Yobany Chavez Magnesium 00/00/ Active Tablets 400mg 1 by mouth Unknown 0000 every day Albuterol / Active Nebulizer (2.5mg/3ML 1 vial via Unknown Sulfate 0000 ) 0.083% nebulizer 4 times daily as needed Xarelto / Active Tablets 20mg 1 by mouth Unknown 0000 every day Metoprolol 00/00/ Active Tablets 100mg take 1 1/2 Unknown Tartrate 0000 tablet by mouth twice a day Amlodipine 0000/ Active Tablets 2.5mg 1 by mouth Unknown Besylate 0000 every day Prednisone 00/00/ Active Tablets 10mg take 4 tabs Unknown 0000 by mouth daily for 2 days then 3 tabs daily for 2 days then 2 tabs for 2 days then 1 tab for 2 days then d/c Vital Signs Date Vital Result Comment 11/12/2017 Height 66 inches 5'6" Weight 134.00 lb w/ shoes Heart Rate 60 /min irregular BP Systolic Sitting 118 mmHg lue reg cuff BP Diastolic Sitting 92 mmHg lue reg cuff Respiratory Rate 18 /min BMI (Body Mass Index) 21.6 kg/m2 Ejection Fraction 35-40% echo 11/01/2017 Results Description No Information Procedures Date CPT Code Description Status 11/01/2017 85351 Echocardiogram, Limited Study Completed 08/28/2017 67387 ECHO Transthorasic Realtime 2D W Doppler & Color Completed [facility] 08/28/2017 75182 EKG, Interpretation Only Completed 10/26/2015 10422 ECHO Transthorasic Realtime 2D W Doppler & Color Completed [facility] Encounters Type Date Location Provider CPT E/M Dx Office Visit 11/07/2017 2:44p [facility] Moraima Chavez M.D. 29847 I48.0 [facility] I42.9 Office Visit 11/05/2017 2:00p [facility] Moraima Chavez M.D. 04203 I48.0 [facility] I42.9 Office Visit 11/04/2017 12:39p [facility] Moraima Chavez M.D. 78905 I48.0 User Support Analyst I42.9 Office Visit 11/03/2017 2:17p [facility] Ludy Garcia 62174 I49.5 Geremias Haywood Office Visit 11/02/2017 2:19p [facility] Ludy Garcia, 84317 I48.91 Geremias Haywood I49.5 Office Visit 10/14/2017 8:57a [facility] Preethi Mckeon, 13137 J44.1 Hospitalists MNellie Office Visit 09/29/2017 11:00a [facility] Eliza Kruger, 12249 J44.1 Hospitalists M.D. I48.0 Office Visit 09/28/2017 11:00a [facility] Eliza Kruger, 68632 J44.1 Hospitalists M.D. I48.0 Office Visit 09/27/2017 11:00a [facility] Preethi Hohn, 51153 J44.1 Hospitalists M.D. I48.0 Office Visit 08/30/2017 8:02a [facility] Jodie German, N.P. 43952 I48.91 Hospitalists K51.90 J44.1 Office Visit 08/29/2017 8:02a [facility] Jodie German, N.P. 19970 I48.91 Hospitalists K51.90 J44.1 Office Visit 08/28/2017 8:00a [facility] Mc Gutierrez, 68449 I48.91 Assoc, Hospitalists N.P. K51.90 J44.1 Office Visit 08/28/2017 12:15p [facility] Cyndi Spencer, 56280 R07.9 M.DOsmani M25.519 R00.0 I48.2 I34.0 F10.10 Z87.891 Office Visit 07/20/2017 7:00a [facility] Josie Pedro, 73752 J44.1 Hospitalists N.P. I48.0 Z87.891 Office Visit 07/19/2017 6:59a [facility] Melina Maldonado, [place]RAD 01475 J44.1 Hospitalists I48.0 Z87.891 Office Visit 07/18/2017 6:58a [facility] Melina Maldonado, [place] 90378 J44.1 Hospitalists I48.0 Z87.891 Office Visit 02/09/2017 10:55a [facility] Renny Jones, 05964 J44.1 Assoc,[facility] Hospitalists R00.0 R07.9 I48.0 Office Visit 02/08/2017 10:53a [facility] Jamia Luna, 34027 J44.1 Assoc, [facility] Hospitalists R00.0 R07.9 I48.0 Office Visit 11/18/2016 3:43p [facility] Preethi Hohn, 71226 J18.1 Hospitalists Yobany J44.1 Office Visit 11/17/2016 3:43p [facility] Preethi Hohn, 09644 J44.1 Hospitalists Yobany J18.1 Office Visit 09/30/2016 2:40p [facility] Jodie German, N.P. 69650 J44.1 Hospitalists I10 Office Visit 09/29/2016 2:39p [facility] Jodie German, N.P. 10845 J44.1 Hospitalists I10 B18.2 Office Visit 09/17/2016 7:13a [facility], Parviz Ruff M.D. 46407 J18.1 Hospitalists J44.9 I48.91 B19.20 Office Visit 09/16/2016 7:12a [facility], Parviz Ruff M.D. 09363 J18.1 Hospitalists J44.9 I48.91 B19.20 Office Visit 09/15/2016 7:11a [facility], Yahir Lubin, 42166 J18.1 Hospitalists Yobany,FACP J44.9 I48.91 Office Visit 09/14/2016 7:11a [facility], Mc Gutierrez, 13902 J44.9 Hospitalists N.P. J18.1 I48.91 B19.20 Office Visit 06/07/2016 12:35p [facility] Morro Spears, 68267 J44.1 Hospitalists Yobany I48.0 Office Visit 06/06/2016 12:35p [facility] Morro Spears, 51787 J44.1 Hospitalists Yobany I48.0 Office Visit 10/27/2015 2:05p [facility] Xena Spencer, 60078 I48.91 MNellie I42.9 Office Visit 10/27/2015 12:35p [facility] Morro Spears, 51457 I48.91 Hospitalists Yobany R55 J44.9 K51.80 Office Visit 10/26/2015 4:07p [facility] Nayanataant Spencer, 91424 I48.91 Yobany I42.9 F17.210 Office Visit 10/26/2015 12:35p [facility] Parviz Ruff M.D. 30075 I48.91 Hospitalists R55 J44.9 K51.80 Office Visit 03/21/2015 9:40a [facility] Julia Patriciabull, N.P. 91079 V74.1 V70.3 V70.5 Office Visit 12/28/2014 10:30a [facility] [address] 486 Hospitalists 785.0 556.9 491.21 Office Visit 12/27/2014 10:29a [facility], [place] [address] 486 Hospitalists 785.0 556.9 491.21 Office Visit 12/26/2014 10:29a [facility], [place] [address] 486 Hospitalists 785.0 556.9 491.21 Plan of Care 11/12/2017 - Annmarie Chavez M.D.I48.0 Paroxysmal atrial fibrillationComments:You are in atrial fibrillation by pulse, this could be making you dizzy when you walk. You have been going in and out of this.Recommendations:Continue metoprolol to control the rate and Xarelto to prevent stroke. Avoid alcohol. Agree with continuing Magnsesium. Dr. Clark can decide on additional medications or procedures for this.I49.5 Sick sinus [id number] Syncope and twleacsvT02.0 Presence of cardiac pacemakerComments:Your incision looks great. OK to bath regularly. Your incision looks great.OK to bath regularly. Continue be careful with your arm on the pacemaker side and to wear a sling or the immobilizer until your next cardiology visit with Dr. Clark.Follow up: Provide the patient with work excuse I created. Follow up w/in [address] Clark to checkpacer/rhythm. PRN f/u with Dr. Chavez
[2017-11-20 10:24] LABS: INR 1.95 (0.77-1.02)
[2017-11-20 10:26] LABS: EGFR Non-African American 68.5 (>60)
[2017-11-20] MEDS ORDERED: Amiodarone 360 MG IVPREMIX* 360 MG/200 ML BAG IV ONE (10:27)
[2017-11-20 11:19] LABS: ABS Basophils 0.1 10^3/ul (0-0.2); ABS Eosinophils 0 10^3/ul (0-0.6); ABS Lymphocytes 0.7 10^3/ul (1.0-4.8); ABS Monocytes 0.8 10^3/ul (0-0.8); ABS Nucleated RBC 0 10^3/ul; Eosinophil % 0.3 % (0-6); Lymphocyte % 4.3 % (25-47); Nucleated Red Blood Cells % 0
[2017-11-20] MEDS ORDERED: Magnesium Sulfate 1 GM IV* 1 GM/100 ML BAG IV ONE (11:31)
[2017-11-20] MEDS ORDERED: Acetaminophen TAB* 325 MG PO PRN (11:40)
[2017-11-20] MEDS ORDERED: fentaNYL* 50 MCG/ML 2 ML VIAL (100 MCG VIAL) ONE (11:58)
[2017-11-20] MEDS ORDERED: Midazolam* 1 MG/ML 10 ML VIAL (10 MG) ONE (11:58)
[2017-11-20] MEDS ORDERED: Levalbuterol 1.25MG/0.5ML NEB INH SCH ×2 (12:00→15:00)
[2017-11-20] MEDS ORDERED: NS 0.9% 1000 ML* 1,000 ML IV SCH (13:00)
[2017-11-20] MEDS ORDERED: Azithromycin IV(*) 500 MG in D5W 250 ML BAG* 250 ML IVPB SCH (13:00)
[2017-11-20] MEDS: DOXYcycline CAP(*) 100 MG PO SCH ×2 (14:46→21:21)
[2017-11-20] MEDS: Amiodarone 360 MG IVPREMIX* 360 MG/200 ML BAG IV SCH (16:50)
[2017-11-20] MEDS ORDERED: Rivaroxaban TAB(*) 20 MG TAB PO SCH (17:00)
--- NOTE | 2017-11-20 17:31 | PN ---
Hospitalist Progress Note Date of Service: 11/20/17 Discussed results of echocardiogram showing EF of 20-25% with cardiology who states that due to recent cardioversion and acute illness this is likely low and a repeat echocardiogram at least a week in the future would be more indicative of patient's underlying cardiac function. Patient's ileostomy and rectal occult blood samples came back positive. Will continue Xarelto at this time due to prevalence of Afib of pacemaker interrogation and monitor hemoglobin. Patient had a recent ileostomy which showed no evidence of ulcers. Patient may have a slow small bleed. Paged to ICU because patient had new rhonchi on exam. No increased hypoxia or dyspnea. Given Xopenex and Lasix 20mg IV. Patient reports improvement after lasix. BP remains increased. Will continue to diurese as needed.
--- NOTE | 2017-11-20 17:32 | ECHO ---
Patient: REMA MARVIN [facility] Rec#: [id number] : 1960 Date: 11/20/2017 Age: 56y Height: 167.6 cm / 66.0 in Weight: 60.8 kg / 134.0 lbs Sex: M BSA: 1.7 Room#: ICU 15 Admit Date#: 11/20/2017 Type: Inpatient Referring: Hair Pang Reading: Vernon Grubbs MD Outside Plant Engineer: Kellen Garcia RN RDCS CC: Allyn Heredia MD Transthoracic Echocardiogram Indication: CHF, A. fib S/P cardioversion BP: 93/65 HR: 74 Rhythm: NSR Findings History: A. fib, HTN, asthma, emphysema, GI bleed, former smoker, recent pacemaker insertion Technical Comments: The study is technically limited due to the patient's smoking history. Completed at 1700. Left Ventricle: The left ventricular chamber size is normal. Severe global hypokinesis of the left ventricle is observed. There is severely decreased left ventricular systolic function. The estimated ejection fraction is 20-25%. The assessment of diastolic function is non-diagnostic. Left Atrium: The left atrial chamber size is normal. Right Ventricle: The right ventricular global systolic function is moderately reduced. A pacemaker wire is visualized in the right ventricle. Right Atrium: The right atrial cavity size is normal. A pacemaker wire is visualized in the right atrium. Aortic Valve: The aortic valve structure is not well visualized. The aortic valve leaflets are mildly thickened. There is no evidence of aortic regurgitation. Mitral Valve: The mitral valve leaflets are mildly thickened. There is mild to moderate mitral regurgitation. Tricuspid Valve: The tricuspid valve leaflets are mildly thickened. There is mild to moderate tricuspid regurgitation. There is evidence of mild pulmonary hypertension. Pulmonic Valve: The pulmonic valve structure is not well visualized. There is no evidence of pulmonic regurgitation. There is no pulmonic stenosis. Pericardium: There is no significant pericardial effusion. Aorta: The ascending aorta is not well visualized. The aortic arch is not well visualized. There is no dilation of the aortic root. Pulmonary Artery: The main pulmonary artery is not well visualized. Venous: The inferior vena cava is dilated. There is less than 50% respiratory change in the inferior vena cava dimension. Conclusions There is severely decreased left ventricular systolic function. The estimated ejection fraction is 20-25%. Severe global hypokinesis of the left ventricle is observed. Normal cardiac chamber sizes. There is mild to moderate mitral regurgitation. There is mild to moderate tricuspid regurgitation. There is evidence of mild pulmonary hypertension. Since the prior echocardiograms completed 08/28/17 and 11/01/17, pertinent change is prior LVEF reported 35-40%. Measurements Name Value Normal Range RVDdMajor (2D) 2.4 cm (2.2 - 4.4) RAd ISD 4CH 3.4 cm (3.4 - 4.9) RA (A4C)W 3.4 cm (2.9 - 4.6) IVSd (2D) 0.8 cm (0.6 - 1) LVPWd (2D) 0.7 cm (0.6 - 1) LVIDd (2D) 5.2 cm (3.6 - 5.4) LVIDs (2D) 4.7 cm - LV FS (2D) 10 % (25 - 45) Aortic Annulus 2 cm (1.4 - 2.6) Ao root diameter (2D) 2.5 cm (2.1 - 3.5) LA dimension (AP) 2D 3 cm (2.3 - 3.8) LAd ISD 4CH 3.3 cm (2.9 - 5.3) LA ISD 4CH W 3.3 cm (2.5 - 4.5) Name Value Normal Range LA ESV SP 4CH (A/L) 29 ml - LA ESV SP 2CH (A/L) 27 ml - LA ESV BP (A/L) 31 ml - LA ESV BP (A/L) index 19 ml/m2 - LA ESV SP 4CH (MOD) 28 ml - LA ESV SP 2CH (MOD) 25 ml - Name Value Normal Range MV E-wave Vmax 0.7 m/sec - MV deceleration time 227 msec - MV A-wave Vmax 0.33 m/sec - MV E:A ratio 2.1 ratio - LV septal e' Vmax 0.05 m/sec - LV lateral e' Vmax 0.09 m/sec - LV E:e' septal ratio 14 ratio - LV E:e' lateral ratio 7.8 ratio - Name Value Normal Range AV Vmax 0.78 m/sec - AV VTI 15.1 cm - AV peak gradient 2.4 mmHg - AV mean gradient 1.4 mmHg - LVOT Vmax 0.53 m/sec - LVOT VTI 10.3 cm - LVOT peak gradient 1.1 mmHg - LVOT mean gradient 0.7 mmHg - Name Value Normal Range TR Vmax 2.4 m/sec - TR peak gradient 23 mmHg - RAP 15 mmHg - RVSP 38 mmHg - IVC diameter 2.3 cm - Name Value Normal Range PV Vmax 0.34 m/sec -
[2017-11-20] MEDS ORDERED: Furosemide IV* 10 MG/ML 2 ML VIAL (20 MG) IV SLOW PU ONE (18:30)
[2017-11-20] MEDS: Levalbuterol 1.25MG/0.5ML NEB INH SCH (19:52)
--- NOTE | 2017-11-20 20:28 | CONS ---
CC: Dr. Salo Kennedy; Dr. Junior Alvarez CARDIOLOGY CONSULTATION AND URGENT CARDIOVERSION PROCEDURE NOTE: DATE OF CONSULTATION: 11/20/17 REFERRING PHYSICIAN: Mr. Hair Alvarez and Dr. Junior Alvarez. REASON FOR CARDIOLOGY CONSULTATION: Urgent evaluation of unstable atrial fibrillation for urgent cardioversion. HISTORY OF PRESENT ILLNESS: Mr. Yen is a 56-year-old gentleman with a history of PAF, status post recent permanent dual-chamber pacemaker. The patient apparently had a recurrence of his atrial fibrillation earlier this week , which was found on an EKG and digoxin was added to his therapy. Today, when the patient was seen in followup with his primary care physician, he was noted to be hypotensive, tachycardic and felt to be unstable so he was sent to the ER. Here in the emergency room, the patient has noted lightheadedness, vague chest discomfort and with a heart rate of 130 to 140 beats per minute of atrial fibrillation, his systolic blood pressure has been low as 70 mm Hg. He was started on Amiodarone IV but remained unstable so I was appropriately urgently called to see the patient. The patient does note feeling lightheaded to me and has some vague chest discomfort. URGENT CARDIOVERSION PROCEDURE: Given the patient's unstable condition, the decision was made to proceed with cardioversion. I discussed with the patient verbally risk, benefits, alternatives of proceeding with cardioversion and he was in agreement with that and provided myself verbal consent with 2 witnesses and this was documented by the nurse and Kim. The appropriate time-out procedure was performed for this urgent cardioversion with no contraindicating safety concerns noted. I had placed hand-free patches in the right anterior l& eft posterior position. He received 2 mg of versed and 25 mcg fentanyl utilizing titrated concentration with good effect. He received 1 synchronized cardioversion attempt utilizing 75 joules biphasic energy with successful resumption of normal sinus rhythm with no apparent complications noted and resumption of sinus rhythm documented on EKG. PAST MEDICAL HISTORY: Includes COPD; PAF, status post permanent pacemaker by my partner, Dr. Annmarie Chavez, recently on 11/05/17. He had a transthoracic echocardiogram completed on 11/01/17, which showed moderately depressed left ventricular ejection fraction of 35% to 40% with relative hypokinesis of the anterolateral and lateral segments compared to other segments, mild right ventricular dilatation, mild mitral regurgitation, [id number] tricuspid regurgitation. OUTPATIENT MEDICATIONS: Listed as: 1. Serevent 1 puff b.i.d. 2. Flovent 1 puff b.i.d. 3. Albuterol 2 puffs q.6 hours p.r.n. 4. Magnesium oxide 400 mg p.o. daily. 5. Xarelto 20 mg p.o. daily which he confirms he has been on for at least 2 weeks. 6. Diovan 80 mg p.o. daily. 7. Digoxin 0.125 mg p.o. daily. 8. Lopressor 150 mg p.o. b.i.d. 9. Prednisone 50 mg p.o. daily. ALLERGIES: Allergies to medications are listed as CIPROFLOXACIN. SOCIAL HISTORY: The patient states he drinks alcohol when he has money, but has not recently. He quit smoking cigarettes a year ago. Other social history, family history, and review of systems obtainment limited due to the patient's urgent condition with hypotension and rapid atrial fibrillation prior to cardioversion, following which he was appropriately sedated. PHYSICAL EXAMINATION: Height 5 feet 6 inches, weight 134 pounds. Blood pressure is 91/56; however, has been as low as systolic of 70. The patient does have prior to cardioversion heart rate 140, systolic blood pressure as low as 70, O2 saturation 97%, temperature 98.5 degrees Fahrenheit. On general exam , he is a chronically-ill appearing gentleman who appears older than his stated age and at least mild distress prior to his cardioversion. He does appear more comfortable post cardioversion. HEENT shows the cranium is normocephalic and atraumatic. He has dry mucosal membranes. Neck veins are not distended. There are no carotid bruits. Visible skin is warm and perfused. Affect is appropriate. He did appear tired. No significant kyphoscoliosis on recumbent back exam. Lungs reveal increased exploratory phase. No wheezes. No rales. Cardiac Exam: S1 and S2, irregular rate, tachycardic prior to the cardioversion and he has postcardioversion regular rate. No significant murmurs , rubs, or gallops. PMI is undisplaced. A soft holosystolic murmur heard without radiation. There is no rub or gallop. Abdomen is soft, nondistended. Appears benign. Extremities: Without significant edema. Pulses appear grossly intact. DIAGNOSTIC STUDIES/LABORATORY DATA: The patient had 12-lead EKG on 11/20/17 at 9:36 a.m., which showed atrial fibrillation at 150 beats per minute with nonspecific ST-T wave changes diffusely. Repeat EKG completed on 11/20/17 at 12 :07 post cardioversion shows an A-paced rhythm at 60 beats per minute with nonspecific ST-T changes confirming successful urgent cardioversion. Sodium 131, potassium 4.7, chloride 102, bicarbonate 22, BUN 24, creatinine 1.11 , magnesium 1.9. ALT 94. TSH 2.16. Troponin 0.01. BNP 1336. INR 1.95. White blood cell count 16.6, hematocrit 42, platelet count 188. IMPRESSION: Mr. Yen is a 56-year-old gentleman with PAF and recent dual- chamber pacemaker on 11/05/17. He apparently had recurrence of his atrial fibrillation approximately a week ago while remaining on chronic Xarelto since at least 11/08/17. He had been suntable on presentation to the emergency room today despite having been started on amiodarone drip, post load, so I have urgently cardioverted him with the patient's consent as described above. He is now maintaining sinus rhythm. RECOMMENDATIONS: 1. I agree with continuing amiodarone load and once he is loaded intravenously, would begin him on amiodarone 400 mg p.o. b.i.d. until he meets with his usual slice cutting machine operator helper, Dr. Kennedy in the next several weeks. The patient will continue oral anticoagulation as well and would watch his liver function tests and COPD symptoms while he is on amiodarone. 2. Recommend keeping magnesium greater than 2. 3. Given the addition of the amiodarone, which has inherent beta reno effect , recommend decreasing the metoprolol to 100 mg p.o. b.i.d., especially in light of his relative hypotension and okay to continue digoxin for now until he sees Dr. Kennedy. 4. At this time, there does not appear to be an indication of pursuing ischemic workup, but the patient will follow up with his primary slice cutting machine operator helper, Dr. Kennedy, and the patient does have troponins trending. 5. Other management as per the hospitalist medicine service and I have discussed the case with Mr. Hair Alvarez of the hospitalist medicine service. The patient should follow up with his usual slice cutting machine operator helper, Dr. Kennedy, post discharge in several weeks. Dear Mr. Hair Al[facility] and Dr. Junior Alvarez of the [facility] Emergency Room Service, many thanks for this kind cardiovascular consultation opportunity. Please do not hesitate to contact me if you have any questions or concerns regarding the patient's cardiovascular consultative care. [id number]/[facility] #: [id number] ELIUD
[2017-11-20] MEDS ORDERED: SALMETEROL INH SCH (21:00)
[2017-11-20] MEDS ORDERED: CMCS:Melatonin (NF) 3 MG TAB PO SCH (21:00)
[2017-11-20] MEDS: Metoprolol Tartrate TAB* 100 MG TAB PO SCH (21:21)
--- NOTE | 2017-11-20 22:09 | HP ---
CC: Dr. Heredia; Dr. Kennedy; Dr. Vernon Grubbs; Dr. Roger Hollis* ADMISSION HISTORY AND PHYSICAL: DATE OF ADMISSION: 11/20/2017 PRIMARY CARE PROVIDER: Dr. Heredia. PRIMARY COMMERCIAL DRIVER: Dr. Kennedy. CONSULTING COMMERCIAL DRIVER: Dr. Vernon Grubbs. MY ATTENDING WHILE IN THE HOSPITAL: Dr. Roger Hollis* (dictated by KIA Khoury). CHIEF COMPLAINT: Rapid atrial fibrillation with chest pain and shortness of breath x1 week. HISTORY OF PRESENT ILLNESS: Mr. Yen is a 56-year-old male with past medical history significant for paroxysmal AFib with intermittent RVR, sick sinus syndrome status post pacemaker implantation in October 2017, COPD and ulcerative colitis, who was sent here by his doctor due to EKG changes, significant for AFib with RVR. The patient was following up with his primary care provider. The patient had followed up with his clinical nursing assistant on Thursday and was found to be in RVR at that time. The patient earlier this week was started on digoxin 0.125 mg p.o. daily. Though the patientis shaky on drug names, it appears she was also started on valsartan 80 mg p.o. daily. The patient had been on Xarelto 20 mg p.o. daily since he was previously admitted to this hospital in mid October 2017. The patient was admitted at that time for AFib with RVR as well as COPD exacerbation. The patient had converted out of rapid atrial fibrillation into normal sinus rhythm before. At that time, patient states that he has been in his general state of health until 1 week ago he was found to be in RVR. The patient states that he has had chest pressure all week since then that have been increasing with stabbing on either side of his left chest and stabbing on his right side from his biceps to his shoulder. The patient also states there was worsening shortness of breath and worsening dyspnea on exertion. The patient states that his legs had been swelling, but that she attributed this to being started on prednisone. The patient was started by his primary care provider on prednisone yesterday for worsening shortness of breath and possible COPD exacerbation. The patient has stable chronic nonproductive cough. The patient does not wear oxygen at home. The patient denies any syncope or presyncope. The patient has had diaphoresis with his episodes of chest pain. The patient states the chest pain is worse with activity, but since he has been in the emergency department has been getting worse just was sitting there. The patient denies any recent illness including exposure to flu, upper respiratory symptoms or diarrhea. The patient states he has had frequency and difficulty with urination increasingly recently. The patient states that he has had intermittent rectal bleeding ever since his colectomy 5 years ago on and off. The patient states he neglected to mention this to the control system computer scientist when he was here previously when they did an ileoscopy which showed no bleeding. The patient states that this has gotten worse since he has been on Xarelto. The patient denies any pain associated with this. The patient states that his ileostomy output is generally dark, but there has been no evangelina blood previous and the patient was on anticoagulation, he had evangelina blood in his ileostomy bag, which is why it was stopped. The patient denies any increases in weight. The patient was found within AFib with RVR with decreasing blood pressures as well as 77/47 recorded. The patient was somewhat lightheaded with these and had increasing chest pressure. Dr. Vernon Grubbs of clinical nursing assistant was consulted and performed emergent cardioversion at the bedside in the emergency department with a return to normal sinus rhythm confirmed by EKG at the bedside. The patient has been started on amiodarone drip, which will be continued in the ICU. PAST MEDICAL HISTORY: 1. COPD. 2. Paroxysmal AFib with intermittent RVR. 3. Ulcerative colitis, status post ileostomy. 4. Colectomy. 5. Hepatitis C treated with sustained viral response. 6. Sick sinus syndrome, status post pacemaker implantation. 7. Hypertension. PAST SURGICAL HISTORY: Colectomy with ileostomy, bilateral knee arthroscopy, tonsillectomy, ICD implantation. MEDICATIONS: 1. Serevent 1 puff inhalation b.i.d. 2. Flovent 220 mcg inhalation b.i.d. 3. Albuterol 2 puffs q.4 hours as needed. 4. Magnesium oxide 400 mg p.o. daily. 5. Xarelto 20 mg p.o. daily. 6. Valsartan 80 mg p.o. daily. 7. Digoxin 0.125 mg p.o. daily. 8. Lopressor 150 mg p.o. b.i.d. 9. Prednisone 50 mg p.o. daily with taper. ALLERGIES: To CIPRO. FAMILY HISTORY: Both the patient's parents . The patient's father was killed in action in [place] and the patient's mother in a car crash, both when he was 5 years old. The patient has no biological siblings or other relatives from which to obtain biological family history. SOCIAL HISTORY: The patient is a 20-pack year smoker, having quit 1 year ago after smoking half a pack a day for 41 years. The patient recently stopped drinking due to lack of money, but used to drink 2 shots worth of hard liquor nightly. The patient denies any illicit drug use. 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 The patient is not and did not have any known children. PHYSICAL EXAMINATION GENERAL: The patient is a 56-year-old male who appears older than stated age and sitting comfortably in the bed, in no acute distress. VITAL SIGNS: At time of arrival to the emergency department, temperature 98.5, pulse rate 154, respiratory rate 22, oxygen saturation 94% on 15 L of oxygen, blood pressure 92/48. HEENT: Head: Normocephalic, atraumatic. Sclerae anicteric. No conjunctival injection. Nasal mucosa moist. Oral mucosa moist. No oropharyngeal erythema, discharge, or exudate. NECK: Supple, nontender. No lymphadenopathy. No carotid bruits auscultated. No JVD. RESPIRATORY: The patient has had rhonchi in his right lower lobe, which resolved with deep breathing. The patient has no wheezes. Breath sounds diminished throughout. No other adventitious lung sounds. CARDIAC: Irregularly irregular rhythm, rate 120. Pulse is 2+ in bilateral dorsalis pedis, posterior tibialis and radial areas. Trace edema in the bilateral lower extremities. ABDOMEN: Soft, nontender, and nondistended. Ileostomy present. Bowel sounds present and normoactive in all 4 quadrants. No hepatosplenomegaly. No hepatojugular reflux. No abdominal bruits auscultated. GENITOURINARY: No suprapubic or CVA tenderness. SKIN: Clean, dry and intact except for ileostomy. No rash. NEUROLOGIC: Cranial nerves II through XII intact. No focal deficits. The patient was reassessed by Cardiology after cardioversion, has no new focal deficits. PSYCHIATRIC: Pleasant and cooperative. LABORATORY DATA: White blood cell count 16.6, hemoglobin 14.2, MCV 97, MCH 33 , platelet count 188. INR 1.95. Sodium 131, potassium 4.7, chloride 102, carbon dioxide 22, anion gap 7, BUN 24, creatinine 1.11, BUN to creatinine ratio of 21.6, glucose 106, lactic acid 1.8, calcium 9.5, magnesium 1.9. Bilirubin 0.6, AST 63, ALT 94, alkaline phosphatase 73. Troponin I 0.01. BNP 1336. Total protein 6.1, albumin 4.0, globulin 2.1, TSH 2.16, digoxin level 1.1. DIAGNOSTIC STUDIES: Electrocardiogram on arrival to the emergency department shows atrial fibrillation, rate of 150, QTc 427, normal axis, ST depression in V2, V3, V4, V5 with T-waves in V5 and V6. Repeat EKG shows normal sinus rhythm , rate of 60, QTc of 378. Persistent ST elevations in V3 and V4 with T-wave flattening in V5 and conversion in V6. Short VA, possible left atrial enlargement, normal axis. No other abnormalities. Chest x-ray read as mild hyperinflation, no active disease. ASSESSMENT AND PLAN: Impression: Mr. Yen is a 56-year-old male with past medical history significant for paroxysmal atrial fibrillation with rapid ventricular response, chronic obstructive pulmonary disease, sick sinus syndrome and ulcerative colitis, who presents with in rapid atrial fibrillation with rapid ventricular response, hypertension and chest pain. The patient was cardioverted at the bedside with Cardiology after being started on amiodarone drip without improvement in his hypertension. The patient will be admitted to the ICU, loaded fully with amiodarone, started on. The patient will not undergo ischemic testing at this time. 1. Atrial fibrillation with rapid ventricular response. The patient had rapid ventricular response on atrial fibrillation upon arrival to the emergency department with low blood pressures, chest pain and increased shortness of breath with elevated BNP at 1336. The patient started on amiodarone drip with persistent hypotension and though the rate did decrease to 100. The patient's chest pain got worse. The patient was emergently cardioverted in the emergency department and he is currently in normal sinus rhythm at 60. The patient will be continued on the amiodarone drip at 1 mg a minute for 6 hours and then 1.5 mg minute for the subsequent 18 hours and may transition to oral therapy 400 mg p.o. b.i.d. until he is followup with Dr. Kennedy. At that time, the patient should be considered for testing for an ischemic origin to his atrial fibrillation, as the patient has significant cardiac risk factors. We will repeat an echo at this time to assess the patient's ejection fraction while in normal sinus rhythm. The patient's blood pressure is low, will not diurese at this time despite elevated BNP and shortness of breath, though monitor going forward. Amiodarone might not be the best maintenance medication for this patient due to chronic lung disease; however, patient has decreased ejection fraction and an adequate response to digoxin and metoprolol. No other antiarrhythmic therapies are approved for heart failure with decreased ejection fraction. Changing this therapy would left up to the patient's outpatient clinical nursing assistant, Dr. Kennedy. We will hold the patient's valsartan and decrease level of metoprolol at this time. Continue patient on digoxin. This patient's pacemaker interrogation discussed with [employer] labor representative. The patient has been in atrial fibrillation at 79% at the time since 11/05/17, when he converted spontaneously to normal sinus rhythm with an average atrial rhythm of 19 hours a day with rapid ventricular response for that time. The patient has no ventricular rhythms or significant pauses with pacing. 2. Chronic obstructive pulmonary disease. The patient was recently started on prednisone for chronic obstructive pulmonary disease exacerbation. Due to the patient's low blood pressure, this will not be discontinued at this time, as patient has been on prednisone therapy consistently due to repeated hospitalizations for chronic obstructive pulmonary disease exacerbations. This will be tapered down if the patient developed hypotension. With tapering, patient should consider testing for acquired adrenal insufficiency outpatient. The patient will be continued on levalbuterol, salmeterol, prednisone and will be started on azithromycin. The patient's QTc is in normal range. The patient has no recent exam. 3. Ulcerative colitis. The patient has ileostomy. The patient's hemoglobin is stable. The patient has intermittent bright red blood from his rectum, this should be investigated more fully. Unable to perform rectal exam at this time due to the patient being cardioverted. We will send stool occult blood from patient's ileostomy. We will perform rectal exam with occult blood testing when able. This should be investigated more fully outpatient. Now, the patient is on anticoagulation therapy and we will monitor the patient's hemoglobin. The patient has developed significantly increased risk for colon malignancy due to ulcerative colitis. The patient had no signs of bleeding or malignancy in his ileostomy, but no direct visualization of his rectum was performed. The patient states he discussed this with his primary care provider and his control system computer scientist through [facility] and they were not concerned for malignancy; however, the patient is not the best historian. 4. Sick sinus syndrome. The patient is status post pacemaker implantation, [employer] interrogation available. The patient has no significant pauses since pacemaker implantation despite going in and out of atrial fibrillation multiple times according to testing. The patient had no delayed sinus node response after cardioversion. 5. Hepatitic C, treated with sustained viral response. The patient has elevated liver enzymes during the hospital, this is likely due to passive congestion, we will monitor. 6. Hypertension. The patient is hypotensive at this time. We will give fluids at this time for pressure support, monitor fluid balance closely with strict I's and O's and daily weights. The patient has persistent low blood pressures after cardioversion; however, the patient receives fentanyl for conscious sedation and this may be related. 7. Hypomagnesemia. The patient had a magnesium level of 1.9, which was repleted. 8. FEN: The patient will have a heart healthy diet without caffeine. The patient will have fluids at 100 mL/hour as above for a total of 2 bags for blood pressure support at this time. 9. Code Status: The patient would like to be a full code. The patient's surrogate decision maker will be his friend, Julia Royal. 10. DVT prophylaxis: The patient is on Xarelto. The patient is high risk. 11. Disposition: The patient is admitted to the ICU inpatient. TIME SPENT: Approximately 75 minutes was spent on this admission, 45 of which was spent [id number] with the patient obtaining history and physical and discussing the treatment plan. This plan has been discussed with my attending, Dr. Roger Hollis and the consulting clinical nursing assistant, Dr. Vernon Grubbs and they are in agreement. KIA KHOURY ADDENDUM TO HISTORY AND PHYSICAL: Rectal exam performed on the patient after he was in the ICU and recovered from sedation for his cardioversion. Rectal exam revealed rectal pouch with no discernible mass, but no normal landmarks due to postsurgical status. Unable to palpate prostate. The patient has dark red clotted blood in his rectum, which is consistent with his story of having intermittent rectal bleeding. The patient's hemoglobin is stable and red blood cell indices did not show signs of iron deficiency. While this is worrisome, the patient is in the hospital from early for a cardiac complaint and is not stable at this time for further investigation. This should be deferred to whomever did his ileostomy and follow up. We will continue the patient's Xarelto at this time. Monitor hemoglobin. The patient is at increased risk for colon malignancy due to ulcerative colitis and cannot recall any screening of his rectal pouch for malignancy. Both sample obtained from rectal exam and ileostomy sample will be sent for occult blood. KIA KHOURY [id number]/[facility] #: [id number]/CPS #: [id number] ELIUD
--- NOTE | 2017-11-20 22:17 | HP ---
ADDENDUM: Rectal exam performed on the patient after he was in the ICU and recovered from sedation f or his cardioversion. Rectal exam revealed rectal pouch with no discernible mass, but no normal land mckeon due to postsurgical status. Unable to palpate prostate. The patient has dark red clotted blood in his rectum, which is consistent with his story of having intermittent rectal bleeding. The patie nt's hemoglobin is stable and red blood cell indices did not show signs of iron deficiency. While th is is worrisome, the patient is in the hospital from early for a cardiac complaint and is not stable at this time for further investigation. This should be deferred to whomever did his ileostomy and fo llow up. We will continue the patient's Xarelto at this time. Monitor hemoglobin. The patient is a t increased risk for colon malignancy due to ulcerative colitis and cannot recall any screening of hi s rectal pouch for malignancy. Both sample obtained from rectal exam and ileostomy sample will be se nt for occult blood. KIA KHOURY [id number]/[facility] #: [id number]
[2017-11-20] MEDS: Mometasone/Formoter 200/5 MDI INH SCH (23:53)
[2017-11-21] MEDS: Levalbuterol 1.25MG/0.5ML NEB INH SCH ×3 (01:05→12:54)
[2017-11-21] MEDS: Amiodarone 360 MG IVPREMIX* 360 MG/200 ML BAG IV SCH (03:52)
[2017-11-21 04:15] LABS: ABS Basophils 0.1 10^3/ul (0-0.2); ABS Eosinophils 0 10^3/ul (0-0.6); ABS Lymphocytes 0.9 10^3/ul (1.0-4.8); ABS Monocytes 0.9 10^3/ul (0-0.8); ABS Neutrophils 11.1 10^3/ul (1.5-7.7); ABS Nucleated RBC 0 10^3/ul; Eosinophil % 0.4 % (0-6); Hematocrit 40 % (42-52); Hemoglobin 13.3 g/dl (14.0-18.0); Mean Corpuscular HGB Conc 33 g/dl (31-36); Mean Corpuscular Hemoglobin 32 pg (27-31); Mean Corpuscular Volume 98 fL (80-94); Mean Platelet Volume 9 um3 (7.4-10.4); Nucleated Red Blood Cells % 0.1; Platelet Count 141 10^3/ul (150-450); Red Blood Count 4.12 10^6/ul (4.0-5.4); Red Cell Distribution Width 14 % (10.5-15); White Blood Count 13.1 10^3/ul (3.5-10.8)
[2017-11-21 04:25] LABS: EGFR Non-African American 67.8 (>60)
[2017-11-21] MEDS: Mometasone/Formoter 200/5 MDI INH SCH (07:05)
[2017-11-21] MEDS ORDERED: Magnesium Sulfate 1 GM IV* 1 GM/100 ML BAG IV ONE (08:21)
[2017-11-21] MEDS: DOXYcycline CAP(*) 100 MG PO SCH (08:30)
[2017-11-21] MEDS: Metoprolol Tartrate TAB* 100 MG TAB PO SCH (08:30)
--- NOTE | 2017-11-21 08:34 | PN ---
Subjective Date of Service: 11/21/17 Interval History: Occ sharp chest pain when he stretches, otherwise no more chest pain Objective Active Medications: Acetaminophen (Tylenol Tab*) 650 mg PO Q6H PRN PRN Reason: FEVER/PAIN Amiodarone HCl (Cordarone Tab*) 400 mg PO BID [facility] Doxycycline Hyclate (Vibramycin Cap(*)) 100 mg PO BID [facility] Last Admin: 11/20/17 21:21 Dose: 100 mg Amiodarone HCl (Nexterone 360 Mg/200 Ml Ivpremix*) 360 mg in 200 mls @ 16.667 mls/hr IV .SEE PROTOCOL [facility] PRN Reason: 0.5 MG/MIN Stop: 11/21/17 10:25 Last Admin: 11/21/17 03:52 Dose: 16.667 mls/hr Magnesium Sulfate/Dextrose (Magnesium Sulfate 1 Gm Iv*) 1 gm in 100 mls @ 200 mls/hr IV ONCE ONE Stop: 11/21/17 08:50 Levalbuterol HCl (Xopenex 1.25 Mg/0.5 Ml Neb.Leona*) 1.25 mg INH [id number] AWAKE [facility] Last Admin: 11/21/17 07:05 Dose: 1.25 mg Magnesium Oxide (Magox 400 Tab*) 400 mg PO 1200 [facility] Magnesium Oxide (Magox 400 Tab*) 400 mg PO DAILY [facility] Melatonin (Melatonin (Nf)) 3 mg PO BEDTIME [facility] Last Admin: 11/20/17 21:21 Dose: 3 mg Metoprolol Tartrate (Lopressor Tab*) 100 mg PO BID [facility] Last Admin: 11/20/17 21:21 Dose: 100 mg Mometasone Furoate/Formoterol Fumar (Dulera 200/5 Mdi*) 1 puff INH BID [facility] Last Admin: 11/21/17 07:05 Dose: 1 puff Prednisone (Deltasone Tab*) 50 mg PO DAILY [facility] Rivaroxaban (Xarelto(*)) 20 mg PO 1700 [facility] Last Admin: 11/20/17 16:56 Dose: 20 mg Vital Signs - 8 hr 11/21/17 11/21/17 11/21/17 00:30 00:45 01:00 Temperature Pulse Rate 60 60 74 Respiratory 19 18 19 Rate Blood Pressure 92/76 107/76 122/80 (mmHg) O2 Sat by Pulse 97 98 98 Oximetry 11/21/17 11/21/17 11/21/17 01:05 01:06 01:15 Temperature Pulse Rate 62 60 Respiratory 18 22 Rate Blood Pressure 132/98 (mmHg) O2 Sat by Pulse 98 96 99 Oximetry 11/21/17 11/21/17 11/21/17 01:30 02:00 02:16 Temperature Pulse Rate 60 60 Respiratory 15 23 21 Rate Blood Pressure 125/93 138/100 151/91 (mmHg) O2 Sat by Pulse 99 Oximetry 11/21/17 11/21/17 11/21/17 02:30 02:45 03:00 Temperature Pulse Rate 59 60 60 Respiratory 16 16 18 Rate Blood Pressure 118/81 123/76 114/80 (mmHg) O2 Sat by Pulse 98 97 97 Oximetry 11/21/17 11/21/17 11/21/17 03:15 03:30 03:45 Temperature Pulse Rate 60 60 60 Respiratory 16 17 17 Rate Blood Pressure 112/73 119/72 138/93 (mmHg) O2 Sat by Pulse 96 96 97 Oximetry 11/21/17 11/21/17 11/21/17 04:00 04:15 04:30 Temperature 97.7 F Pulse Rate 60 60 59 Respiratory 16 17 18 Rate Blood Pressure 138/96 132/90 139/86 (mmHg) O2 Sat by Pulse 100 99 98 Oximetry 11/21/17 11/21/17 11/21/17 04:45 05:00 05:15 Temperature Pulse Rate 63 60 Respiratory 21 21 20 Rate Blood Pressure 133/101 128/80 (mmHg) O2 Sat by Pulse 96 99 Oximetry 11/21/17 11/21/17 11/21/17 05:30 05:45 06:00 Temperature Pulse Rate 60 60 60 Respiratory 20 18 19 Rate Blood Pressure 123/88 113/81 119/82 (mmHg) O2 Sat by Pulse 98 100 98 Oximetry 11/21/17 11/21/17 11/21/17 06:15 06:30 06:45 Temperature Pulse Rate 61 60 60 Respiratory 18 18 19 Rate Blood Pressure 120/74 120/70 114/76 (mmHg) O2 Sat by Pulse 99 98 98 Oximetry 11/21/17 11/21/17 11/21/17 07:00 07:09 07:16 Temperature Pulse Rate 60 67 Respiratory 18 22 15 Rate Blood Pressure 128/83 129/79 (mmHg) O2 Sat by Pulse 98 99 Oximetry 11/21/17 11/21/17 11/21/17 07:31 07:41 07:46 Temperature 98.2 F Pulse Rate 71 74 Respiratory 21 20 Rate Blood Pressure 126/81 126/89 (mmHg) O2 Sat by Pulse 78 87 Oximetry 11/21/17 11/21/17 08:00 08:16 Temperature Pulse Rate 59 58 Respiratory 19 21 Rate Blood Pressure 136/82 132/92 (mmHg) O2 Sat by Pulse 96 Oximetry Oxygen Devices in Use Now: Nasal Cannula Appearance: Alert, partly up on ICU bed. IN good spirits. Looks comfortable. Eyes: No Scleral Icterus Neck: NL Appearance and Movements; NL JVP, No Thyroid Enlargement, Masses Respiratory: Symmetrical Chest Expansion and Respiratory Effort, Clear to Auscultation, Clear to Percussion Cardiovascular: NL Sounds; No Murmurs; No JVD, RRR, No Edema, - Extremities: No Edema, No Clubbing, Cyanosis, - Skin: No Rash or Ulcers, No Nodules or Sclerosis, - Neurological: Alert and Oriented x 3, NL Sensation Result Diagrams: 11/21/17 04:05 11/21/17 04:05 Microbiology and Other Data: Microbiology 11/20/17 15:00 Stool Occult Blood (TINA) - Final Stool Stool Occult Blood (TINA) - Final Assess/Plan/Problems-Billing Assessment: - Patient Problems (1) Atrial fibrillation Current Visit: No Status: Chronic Code(s): I48.91 - UNSPECIFIED ATRIAL FIBRILLATION SNOMED Code(s): 35585835 Comment: Successful cardioversion 11/20. Completed amidoarone IV infusion. Starting po amiodarone load noon 11/21. Pacemaker placed 11/04/17. Patient took metoprolol succinate 100 mg daily at home will reduce to 50 mg daily. - Echo with EF 30-35% Continue rivaroxaban. Digoxin continued, no clear benefit at this time. I will discuss with Dr. Grubbs. (2) Hepatitis C Current Visit: No Status: Acute Comment: Has been treated. Fup with Brinda STANTON. (3) COPD (chronic obstructive pulmonary disease) Current Visit: No Status: Acute Code(s): J44.9 - CHRONIC OBSTRUCTIVE PULMONARY DISEASE, UNSPECIFIED SNOMED Code(s): 13167547 Comment: - Taper prednisone, continue salmeterol, fluticasone at home. Quit smoking about 1 yr ago. (4) Colostomy in place Current Visit: No Status: Chronic Priority: Low Code(s): Z93.3 - COLOSTOMY STATUS SNOMED Code(s): 737795421 Comment: - Hx ulcerative colitis. Hx intermiitent rectal bleeding. H&H OK. Fup [facility]. (5) Hypomagnesemia Current Visit: Yes Status: Acute Code(s): E83.42 - HYPOMAGNESEMIA SNOMED Code(s): 477429016 Comment: Repeat magnesium dose 11/21, start daily oral dose. Status and Disposition: Discharge now, fup Dr. Kennedy and other [place] providers. Points of Discussion: Successful cardioversion 11/20. Completed amiodarone infusion, starting po amidoarone noon 11/21. Stop digoxin, ? helpful at his point. Metoprolol has been reduced. BP good. In NSR. Note has PPM. I will discuss with Dr. Grubbs.
[2017-11-21] MEDS ORDERED: predniSONE TAB* 10 MG PO SCH ×2 (09:00)
[2017-11-21] MEDS ORDERED: Magnesium Oxide TAB* 400 MG PO SCH ×3 (09:00→12:00)
[2017-11-21] MEDS ORDERED: Digoxin TAB* 0.125 MG PO SCH (09:00)
--- NOTE | 2017-11-21 09:38 | ED ---
Kavita Rosenberg Julia, scribed for Junior Alvarez MD on 11/20/17 at 0942 . Palpitations / Dysrhythmia - HPI Summary HPI Summary: This patient is a 56 year old M BIBA to [facility] with a chief complaint of SOB, chest pain, and rapid a-fib for a week worsening this morning. Patient reports a SOB and diaphoresis is typical for him with A-fib. EMS reports productive cough and that he was not given Nitroglycerin or Cardizem due to hypotension. Patient had pacemaker implanted in October of 2017. Patient is seen by Dr. Chavez, cardiology. - History of Current Complaint Hx Obtained From: Patient Onset/Duration: Lasting Weeks, Worse Since - this morning Severity Initially: Worse Since: - this morning Character: Fast - A-fib Associated Signs & Symptoms: Chest Pain, Shortness of Breath, Diaphoresis Related History: Similar Episode/Dx as - A-fib, recent pacemaker implant - Allergy/Home Medications Allergies/Adverse Reactions: Allergies Allergy/AdvReac Type Severity Reaction Status Date / Time ciprofloxacin Allergy Itching Verified 11/20/17 09:48 Home Medications: Home Medications Digoxin TAB* [Lanoxin TAB*] 0.125 mg PO DAILY 11/20/17 [History Confirmed ] Metoprolol Tartrate TAB* [Lopressor TAB*] 300 mg PO BID 11/20/17 [History Confirmed 11/20/17] Valsartan TAB* [Diovan TAB*] 80 mg PO DAILY 11/20/17 [History Confirmed 11/20/17 ] predniSONE TAB* [Deltasone TAB*] 50 mg PO DAILY 11/20/17 [History Confirmed 11/08] PMH/Surg Hx/FS Hx/Imm Hx Endocrine/Hematology History: Denies: Hx Anticoagulant Therapy, Hx Diabetes, Hx Systemic Lupus Erythematosus, Hx Thyroid Disease Cardiovascular History: Reports: Hx Atrial Fibrillation - no anticoagulants used currently, Hx Hypertension, Other Cardiovascular Problems/Disorders - A FIB Denies: Hx Congestive Heart Failure, Hx Deep Vein Thrombosis, Hx Myocardial Infarction, Hx Pacemaker/ICD Respiratory History: Reports: Hx Asthma, Hx Chronic Obstructive Pulmonary Disease (COPD), Other Respiratory Problems/Disorders - PNA Denies: Hx Lung Cancer, Hx Pneumonia, Hx Pulmonary Embolism GI History: Reports: Hx Gastrointestinal Bleed, Hx Obstructive Bowel, Hx Ileostomy - colostomy 2012, Other GI Disorders - colostomy, ulcerative colitis Denies: Hx Gall Bladder Disease, Hx Ulcer, Hx Urosepsis History: Denies: Hx Kidney Stones, Hx Renal Disease Musculoskeletal History: Reports: Hx Orthopedic Injury - surgeries in both knees Denies: Hx Arthritis, Hx Rheumatoid Arthritis, Hx Osteoporosis Sensory History: Reports: Hx Contacts or Glasses Denies: Hx Hearing Aid, Other Sensory Impairments Opthamlomology History: Reports: Hx Contacts or Glasses Denies: Other Sensory Impairments Neurological History: Denies: Hx Dementia, Hx Migraine, Hx Seizures, Hx Transient Ischemic Attacks (TIA) Psychiatric History: Denies: Hx Anxiety, Hx Depression, Hx Schizophrenia, Hx Bipolar Disorder - Cancer History Hx Chemotherapy: No - Surgical History Surgery Procedure, Year, and Place: COLECTOMY FOR ULCERATIVE COLITIS AT [facility] - has ostomy now 12/2012; bilat knees for cartilage. Tonsils Hx Anesthesia Reactions: No - Immunization History Date of Influenza Vaccine: 06/07/16 Infectious Disease History: Reports: Hx Hepatitis - hep c Denies: Hx Clostridium Difficile, Hx Human Immunodeficiency Virus (HIV), Hx of Known/Suspected MRSA, Hx Shingles, Hx Tuberculosis, Hx Known/Suspected VRE, Hx Known/Suspected VRSA, History Other Infectious Disease - Family History Known Family History: Positive: Unknown - Patient is adopted, family history is unknown. - Social History Alcohol Use: Occasionally Alcohol Amount: 2 Hx Substance Use: No Substance Use Type: Reports: None Hx Tobacco Use: Yes Smoking Status (MU): Former Smoker Type: Cigarettes Amount Used/How Often: 1/2 ppd Length of Time of Smoking/Using Tobacco: 40 years Have You Smoked in the Last Year: Yes Review of Systems Positive: Skin Diaphoresis Positive: Palpitations, Chest Pain Positive: Shortness Of Breath, Cough All Other Systems Reviewed And Are Negative: Yes Physical Exam - Summary Physical Exam Summary: Appearance: The patient is well-nourished in no acute distress and in no acute pain. Skin: The skin is warm and dry and skin color reflects adequate perfusion. HEENT: The head is normocephalic and atraumatic. The pupils are equal and reactive. The conjunctivae are clear and without drainage. Nares are patent and without drainage. Mouth reveals moist mucous membranes and the throat is without erythema and exudate. The external ears are intact. The ear canals are patent and without drainage. The tympanic membranes are intact. Neck: the neck is supple with full range of motion and non-tender. There are no carotid bruits. There is no neck vein distension. Respiratory: Chest is non-tender. Lungs have crackles [address] Breath sounds are symmetrical and equal. Patient is tachypneic Cardiovascular: Heart is irregular and rapid. There is no murmur or rub auscultated. There is no peripheral edema and pulses are symmetrical and equal. Abdomen: The abdomen is soft and non-tender. There are normal bowel sounds heard in all four quadrants and there is no organomegaly palpated. Musculoskeletal: There is no back tenderness noted. Extremities are non-tender with full range of motion. There is good capillary refill. There is no peripheral edema or calf tenderness elicited. Neurological: Patient is alert and oriented to person, place and time. The patient has symmetrical motor strength in all four extremities. Cranial nerves are grossly intact. Deep tendon reflexes are symmetrical and equal in all four extremities. Psychiatric: The patient has an appropriate affect and does not exhibit any anxiety or depression. Triage Information Reviewed: Yes Vital Signs On Initial Exam: Initial Vitals Temp Pulse Resp BP Pulse Ox 98.5 F 154 22 92/48 94 11/20/17 09:38 11/20/17 09:38 11/20/17 09:38 11/20/17 09:38 11/20/17 09:38 Vital Signs Reviewed: Yes Diagnostics - Vital Signs Vital Signs Temp Pulse Resp BP Pulse Ox 11/20/17 10:46 84/64 11/20/17 10:15 82/57 11/20/17 10:06 117 22 86/60 97 11/20/17 10:00 100 24 98 11/20/17 09:57 90 22 98 11/20/17 09:56 95 24 79/58 99 11/20/17 09:55 121 20 86/66 97 11/20/17 09:52 98 11/20/17 09:38 98.5 F 154 22 92/48 94 - Laboratory Lab Results: Lab Results 11/20/17 11/20/17 11/20/17 Range/Units 09:55 09:55 09:55 WBC 16.6 H (3.5-10.8) 10^3/ul RBC 4.36 (4.0-5.4) 10^6/ul Hgb 14.2 (14.0-18.0) g/dl Hct 42 (42-52) % MCV 97 H (80-94) fL MCH 33 H (27-31) pg MCHC 33 (31-36) g/dl RDW 14 (10.5-15) % Plt Count 188 (150-450) 10^3/ul MPV 9 (7.4-10.4) um3 Neut % (Auto) 90.4 H (38-83) % Lymph % (Auto) 4.3 L (25-47) % [place] % (Auto) 4.6 (0-7) % Eos % (Auto) 0.3 (0-6) % Baso % (Auto) 0.4 (0-2) % Absolute Neuts (auto) 15.0 H (1.5-7.7) 10^3/ul Absolute Lymphs (auto) 0.7 L (1.0-4.8) 10^3/ul Absolute Monos (auto) 0.8 (0-0.8) 10^3/ul Absolute Eos (auto) 0 (0-0.6) 10^3/ul Absolute Basos (auto) 0.1 (0-0.2) 10^3/ul Absolute Nucleated RBC 0 10^3/ul Nucleated RBC % 0 INR (Anticoag Therapy) (0.77-1.02) Sodium 131 L (133-145) mmol/L Potassium 4.7 (3.5-5.0) mmol/L Chloride 102 (101-111) mmol/L Carbon Dioxide 22 (22-32) mmol/L Anion Gap 7 (2-11) mmol/L BUN 24 (6-24) mg/dL Creatinine 1.11 (0.67-1.17) mg/dL Est GFR ( Amer) 88.1 (>60) Est GFR (Non-Af Amer) 68.5 (>60) BUN/Creatinine Ratio 21.6 H (8-20) Glucose 106 H (70-100) mg/dL Hemoglobin A1c (4.0-5.6) % Lactic Acid (0.5-2.0) mmol/L Calcium 9.5 (8.6-10.3) mg/dL Magnesium 1.9 (1.9-2.7) mg/dL Total Bilirubin 0.60 (0.2-1.0) mg/dL AST 63 H (13-39) U/L ALT 94 H (7-52) U/L Alkaline Phosphatase 73 (34-104) U/L Troponin I 0.01 (<0.04) ng/mL B-Natriuretic Peptide 1336 H ( - 100) pg/mL Total Protein 6.1 L (6.4-8.9) g/dL Albumin 4.0 (3.2-5.2) g/dL Globulin 2.1 (2-4) g/dL Albumin/Globulin Ratio 1.9 (1-3) Triglycerides 212 mg/dL Cholesterol 208 mg/dL LDL Cholesterol 108 mg/dL HDL Cholesterol 57.4 mg/dL TSH 2.16 (0.34-5.60) mcIU/mL Digoxin 1.1 (0.8-2.0) ng/ml 11/20/17 11/20/17 11/20/17 Range/Units 09:55 09:55 09:55 WBC (3.5-10.8) 10^3/ul RBC (4.0-5.4) 10^6/ul Hgb (14.0-18.0) g/dl Hct (42-52) % MCV (80-94) fL MCH (27-31) pg MCHC (31-36) g/dl RDW (10.5-15) % Plt Count (150-450) 10^3/ul MPV (7.4-10.4) um3 Neut % (Auto) (38-83) % Lymph % (Auto) (25-47) % [place] % (Auto) (0-7) % Eos % (Auto) (0-6) % Baso % (Auto) (0-2) % Absolute Neuts (auto) (1.5-7.7) 10^3/ul Absolute Lymphs (auto) (1.0-4.8) 10^3/ul Absolute Monos (auto) (0-0.8) 10^3/ul Absolute Eos (auto) (0-0.6) 10^3/ul Absolute Basos (auto) (0-0.2) 10^3/ul Absolute Nucleated RBC 10^3/ul Nucleated RBC % INR (Anticoag Therapy) 1.95 H (0.77-1.02) Sodium (133-145) mmol/L Potassium (3.5-5.0) mmol/L Chloride (101-111) mmol/L Carbon Dioxide (22-32) mmol/L Anion Gap (2-11) mmol/L BUN (6-24) mg/dL Creatinine (0.67-1.17) mg/dL Est GFR ( Amer) (>60) Est GFR (Non-Af Amer) (>60) BUN/Creatinine Ratio (8-20) Glucose (70-100) mg/dL Hemoglobin A1c 6.2 H (4.0-5.6) % Lactic Acid 1.8 (0.5-2.0) mmol/L Calcium (8.6-10.3) mg/dL Magnesium (1.9-2.7) mg/dL Total Bilirubin (0.2-1.0) mg/dL AST (13-39) U/L ALT (7-52) U/L Alkaline Phosphatase (34-104) U/L Troponin I (<0.04) ng/mL B-Natriuretic Peptide ( - 100) pg/mL Total Protein (6.4-8.9) g/dL Albumin (3.2-5.2) g/dL Globulin (2-4) g/dL Albumin/Globulin Ratio (1-3) Triglycerides mg/dL Cholesterol mg/dL LDL Cholesterol mg/dL HDL Cholesterol mg/dL TSH (0.34-5.60) mcIU/mL Digoxin (0.8-2.0) ng/ml Result Diagrams: 11/21/17 04:05 11/21/17 04:05 Lab Statement: Any lab studies that have been ordered have been reviewed, and results considered in the medical decision making process. - Radiology CXR Radiology Interpretation Completed By: Radiologist - MILD HYPERINFLATION. NO ACTIVE DISEASE. ED Physician has reviewed this report. - EKG 0936 Cardiac Rate: Tachycardia - at 150 PM EKG Rhythm: Atrial Fibrillation EKG Interpretation: A-fib with RVR, diffuse ST depressions Course/Dx - Course Course Of Treatment: Mr. Yen presented tachypneic, irregularly tachycardic in the 150's, and hypotensive in the 80s-90s. He reported that he had been in A -fib with RVR in the PMD offices on Thursday and started on Dig. He does not feel the tachycardia and it is unknown how long he has been in it. Our supply of cardizem is limited and I was hesitant to use esmolol with his pressure so he was started on amiodarone with good rate response but not really any bp response. Dr. Grubbs was contacted and advised more amiodarone and came to see the patient. He ended up cardioverting him here in the department with conscious sedation. - Diagnoses Provider Diagnoses: Atrial fibrillation with rapid ventricular response - Physician Notifications Discussed Care Of Patient With: Vernon Grubbs - cardiology Time Discussed With Above Provider: 10:20 Instructed by Provider To: Other - Patient should be admitted and to continue the Amiodorone drip. Dr. Hollis agrees to admit this patient at 10:58. - Critical Care Time Critical Care Time: 30-74 min Discharge - Discharge Plan Condition: Stable Disposition: ADMITTED TO [facility] The documentation as recorded by the Kavita rangel Julia accurately reflects the service I personally performed and the decisions made by me, Junior Alvarez MD.
[2017-11-21] MEDS ORDERED: Amiodarone TAB* 400 MG PO SCH (12:00)
[2017-11-21 13:45] VITALS: BP 122/78
--- NOTE | 2017-11-22 10:48 | DS ---
CC: Dr. Kennedy at [facility], [place] DISCHARGE SUMMARY: DATE OF ADMISSION: 11/20/17 DATE OF DISCHARGE: 11/21/17 HISTORY: This 56-year-old man presented with shortness of breath and chest pain for about a week. T he history is detailed in the admission note. The patient was in atrial fibrillation with a rapid ventricular response. The patient has been treat ed for this before. He is normally followed by Dr. Kennedy at the [facility]. The patient is on rivaroxaban at home. He underwent cardioversion on 11/20/17, which was successful. His chest pain resolved. Dr. Grubbs saw him in consultation and felt that ischemic workup at this t cindy was not indicated. The patient had several troponin levels, all of which were within normal limi ts. He was started on amiodarone. He got a loading IV infusion and will be on 400 mg b.i.d. for 10 days. He should see Dr. Kennedy within that period of time. Due to the beta-reno effect of amiodaro ne, his metoprolol succinate dose was decreased from 100 mg daily to 50 mg daily. There was some con fusion in the hospital as to what his home dose was and he actually received a little more beta- bloc ker during his hospital stay. The patient will taper off his prednisone over 4 days. He will change from albuterol nebulizer to le valbuterol nebulizer at home. FINAL DIAGNOSES: 1. Atrial fibrillation. 2. Chronic obstructive pulmonary disease. 3. History of hepatitis C. 4. Ileostomy with intermittent bleeding. 5. Hypomagnesemia. DISCHARGE MEDICATIONS: 1. Amiodarone 400 mg b.i.d. for 10 days. 2. Levalbuterol 1.25 mg via nebulizer every 4 hours p.r.n. 3. Magnesium oxide 400 mg daily. 4. Prednisone 10 mg, taper from 4 to 0 for 4 days. 5. Metoprolol succinate 50 mg daily. 6. Salmeterol 1 puff b.i.d. 7. Fluticasone 250 mcg 1 puff b.i.d. 8. Rivaroxaban 20 mg daily. 9. Valsartan 80 mg daily. [id number]/[facility] #: [id number]
== END 2017-11-21 14:12 | disposition home or self-care (01) ==
LOC: ED 09:35 → INTOOBSV 10:58 → ICU 10:58
PROVIDERS: ADMIT Internal Medicine; ATTEND Internal Medicine
DX: I48.91 Unspecified atrial fibrillation (principal); J44.9 Chronic obstructive pulmonary disease, unspecified; B19.20 Unspecified viral hepatitis C without hepatic coma; K62.5 Hemorrhage of anus and rectum; K51.90 Ulcerative colitis, unspecified, without complications; Z93.2 Ileostomy status; E83.42 Hypomagnesemia; R07.9 Chest pain, unspecified; R06.02 Shortness of breath; I49.5 Sick sinus syndrome; Z95.0 Presence of cardiac pacemaker; I10 Essential (primary) hypertension; Z79.01 Long term (current) use of anticoagulants; Z79.899 Other long term (current) drug therapy; Z88.1 Allergy status to other antibiotic agents; Z87.891 Personal history of nicotine dependence; I34.0 Nonrheumatic mitral (valve) insufficiency; I07.1 Rheumatic tricuspid insufficiency
CPT/HCPCS: 36415; 71045; 80053; 80061; 80162; 82272; 83036; 83605; 83735; 83880; 84443; 84484; 85025; 85610; 93005; 93306; 94640; 96372; 96374; 96376; 99291; A9270-GY; G0378; J0282; J1940; J2250; J3010; J3475; J7512

== ENCOUNTER 2018-02-10 02:50 | Inpatient (IN) | payer OTHER ==
[2018-02-10] MEDS ORDERED: Albuterol 2.5 MG/3 ML NEB.SOL* (0.083%) ONE (02:57)
[2018-02-10] MEDS ORDERED: Albuterol 2.5 MG/3 ML NEB.SOL* (0.083%) INH SCH (03:00)
[2018-02-10] MEDS ORDERED: methylPREDNISolone 125 MG* 2 ML VIAL IV ONE (03:02)
[2018-02-10] MEDS ORDERED: Magnesium Sulfate 1 GM IV* 1 GM/100 ML BAG IV ONE (03:02)
[2018-02-10] MEDS ORDERED: NS 0.9% 1000 ML* 1,000 ML IV ONE (03:02)
[2018-02-10] MEDS ORDERED: Albuterol/Ipratropium NEB.SOL* Albuterol 2.5 MG/Ipratropium 0.5 MG 3 ML INH ONE (03:02)
[2018-02-10 03:31] LABS: ABS Basophils 0.1 10^3/ul (0-0.2); ABS Eosinophils 0.4 10^3/ul (0-0.6); ABS Lymphocytes 0.9 10^3/ul (1.0-4.8); ABS Monocytes 1.4 10^3/ul (0-0.8); ABS Nucleated RBC 0 10^3/ul; Eosinophil % 3.5 % (0-6); Hematocrit 41 % (42-52); Hemoglobin 14.1 g/dl (14.0-18.0); Lymphocyte % 8.7 % (25-47); Mean Corpuscular HGB Conc 34 g/dl (31-36); Mean Corpuscular Hemoglobin 32 pg (27-31); Mean Corpuscular Volume 94 fL (80-94); Mean Platelet Volume 7.5 um3 (7.4-10.4); Nucleated Red Blood Cells % 0; Platelet Count 217 10^3/ul (150-450); Red Cell Distribution Width 15 % (10.5-15); White Blood Count 10.8 10^3/ul (3.5-10.8)
[2018-02-10 03:47] LABS: EGFR Non-African American 98.2 (>60)
[2018-02-10] MEDS ORDERED: Albuterol 2.5 MG/3 ML NEB.SOL* (0.083%) INH PRN (03:48)
[2018-02-10] MEDS ORDERED: Acetaminophen TAB* 325 MG PO PRN (03:48)
[2018-02-10] MEDS ORDERED: Ondansetron 40 MG VIAL* 2 MG/ML 20 ML VIAL IV PRN (03:48)
[2018-02-10] MEDS ORDERED: Levofloxacin 750 MG IVPREMIX(* 750 MG/150 ML BAG IVPB ONE (03:52)
[2018-02-10] MEDS ORDERED: NS 0.9% 1000 ML* 1,000 ML IV SCH (04:00)
--- NOTE | 2018-02-10 04:20 | ED ---
Tre Rosenberg Natalie, scribed for Girma Mclean MD on 02/10/18 at 0326 . Shortness of Breath - HPI Summary HPI Summary: The patient is a 57 y/o M presenting to the ED via EMS c/o respiratory distress and SOB starting yesterday, worsening tonight. In the ambulance, pt was given Albuterol treatment and was put on CPAP. He is feeling better in the ED with BiPAP. Pt additionally c/o chest tightness and wheezing. The pt has hx of Afib, COPD, and ulcerative colitis. He takes Xarelto. - History of Current Complaint Chief Complaint: EDShortnessOfBreath Hx Obtained From: Patient Onset/Duration: Sudden Onset, Lasting Hours, Still Present Timing: Constant Current Severity: Severe Alleviating Factors: Other - CPAP, BiPAP Associated Signs & Symptoms: Wheezing - Allergy/Home Medications Allergies/Adverse Reactions: Allergies Allergy/AdvReac Type Severity Reaction Status Date / Time ciprofloxacin Allergy Itching Verified 11/20/17 09:48 Home Medications: Home Medications Albuterol Sulfate [Ventolin Hfa] 2 puff INH Q4HR PRN 02/10/18 [History Confirmed 02/10/18] Metoprolol Succinate 200 mg PO DAILY 02/10/18 [History Confirmed 02/10/18] PMH/Surg Hx/FS Hx/Imm Hx Endocrine/Hematology History: Denies: Hx Anticoagulant Therapy, Hx Diabetes, Hx Systemic Lupus Erythematosus, Hx Thyroid Disease Cardiovascular History: Reports: Hx Atrial Fibrillation - no anticoagulants used currently, Hx Hypertension, Other Cardiovascular Problems/Disorders - A FIB Denies: Hx Congestive Heart Failure, Hx Deep Vein Thrombosis, Hx Myocardial Infarction, Hx Pacemaker/ICD Respiratory History: Reports: Hx Asthma, Hx Chronic Obstructive Pulmonary Disease (COPD), Other Respiratory Problems/Disorders - PNA Denies: Hx Lung Cancer, Hx Pneumonia, Hx Pulmonary Embolism GI History: Reports: Hx Gastrointestinal Bleed, Hx Obstructive Bowel, Hx Ileostomy - colostomy 2012, Other GI Disorders - colostomy, ulcerative colitis Denies: Hx Gall Bladder Disease, Hx Ulcer, Hx Urosepsis History: Denies: Hx Kidney Stones, Hx Renal Disease Musculoskeletal History: Reports: Hx Orthopedic Injury - surgeries in both knees Denies: Hx Arthritis, Hx Rheumatoid Arthritis, Hx Osteoporosis Sensory History: Reports: Hx Contacts or Glasses Denies: Hx Hearing Aid, Other Sensory Impairments Opthamlomology History: Reports: Hx Contacts or Glasses Denies: Other Sensory Impairments Neurological History: Denies: Hx Dementia, Hx Migraine, Hx Seizures, Hx Transient Ischemic Attacks (TIA) Psychiatric History: Denies: Hx Anxiety, Hx Depression, Hx Schizophrenia, Hx Bipolar Disorder - Cancer History Hx Chemotherapy: No - Surgical History Surgery Procedure, Year, and Place: COLECTOMY FOR ULCERATIVE COLITIS AT [facility] - has ostomy now 12/2012; bilat knees for cartilage. Tonsils Hx Anesthesia Reactions: No - Immunization History Date of Influenza Vaccine: 06/07/16 Infectious Disease History: No Infectious Disease History: Reports: Hx Hepatitis - hep c Denies: Hx Clostridium Difficile, Hx Human Immunodeficiency Virus (HIV), Hx of Known/Suspected MRSA, Hx Shingles, Hx Tuberculosis, Hx Known/Suspected VRE, Hx Known/Suspected VRSA, History Other Infectious Disease, Traveled Outside the in Last 30 Days - Family History Known Family History: Positive: Hypertension, Respiratory Disease, Other - adopted - Social History Alcohol Use: Occasionally Alcohol Amount: 2 Hx Substance Use: No Substance Use Type: Reports: None Hx Tobacco Use: Yes Smoking Status (MU): Former Smoker Type: Cigarettes Amount Used/How Often: 1/2 ppd Length of Time of Smoking/Using Tobacco: 40 years Have You Smoked in the Last Year: Yes Review of Systems Positive: Chest Pain - tightness Positive: Shortness Of Breath, Other - wheezing All Other Systems Reviewed And Are Negative: Yes Physical Exam - Summary Physical Exam Summary: Appearance: Well appearing, no pain distress Skin: warm, dry, reflects adequate perfusion Head/face: normal Eyes: EOMI, [place] ENT: normal Neck: supple, non-tender Respiratory: CTA, breath sounds present, tachypnea globally diminished Cardiovascular: pulses symmetrical, strong, and regular, tachycardic heart rate Abdomen: non-tender, soft Bowel Sounds: present Musculoskeletal: normal, strength/ROM intact Neuro: normal, sensory motor intact, A&Ox3 Triage Information Reviewed: Yes Vital Signs On Initial Exam: Initial Vitals Temp Pulse Resp BP Pulse Ox 97.1 F 105 24 120/95 100 02/10/18 02:51 02/10/18 02:51 02/10/18 02:51 02/10/18 02:51 02/10/18 02:51 Vital Signs Reviewed: Yes Diagnostics - Vital Signs Vital Signs Temp Pulse Resp BP Pulse Ox 02/10/18 02:53 103 30 100 02/10/18 02:51 97.1 F 105 24 120/95 100 - Laboratory Lab Results: Lab Results 02/10/18 02/10/18 02/10/18 Range/Units 03:20 03:23 03:23 WBC 10.8 (3.5-10.8) 10^3/ul RBC 4.40 (4.0-5.4) 10^6/ul Hgb 14.1 (14.0-18.0) g/dl Hct 41 L (42-52) % MCV 94 (80-94) fL MCH 32 H (27-31) pg MCHC 34 (31-36) g/dl RDW 15 (10.5-15) % Plt Count 217 (150-450) 10^3/ul MPV 7.5 (7.4-10.4) um3 Neut % (Auto) 74.4 (38-83) % Lymph % (Auto) 8.7 L (25-47) % [place] % (Auto) 12.7 H (0-7) % Eos % (Auto) 3.5 (0-6) % Baso % (Auto) 0.7 (0-2) % Absolute Neuts (auto) 8.0 H (1.5-7.7) 10^3/ul Absolute Lymphs (auto) 0.9 L (1.0-4.8) 10^3/ul Absolute Monos (auto) 1.4 H (0-0.8) 10^3/ul Absolute Eos (auto) 0.4 (0-0.6) 10^3/ul Absolute Basos (auto) 0.1 (0-0.2) 10^3/ul Absolute Nucleated RBC 0 10^3/ul Nucleated RBC % 0 Patient Temperature Not Reportable ABG pH 7.29 L (7.35-7.45) ABG pH (Temp Correct) Not Reportable ABG pCO2 43 (35-45) mmHg ABG pCO2 (Temp Corrct Not Reportable ABG pO2 221 H (80-100) mmHg ABG pO2 (Temp Correct Not Reportable ABG HCO3 20.4 (19-31) mmol/L ABG O2 Saturation 99.9 H (95-98) % ABG Base Excess -5.8 L (-2.0-2.0) Respiration Rate 14 O2 Delivery Device bipap Ventilator Type Not Reportable Vent Mode Not Reportable FiO2 50 Inspiratory Time Not Reportable PEEP Not Reportable Pressure Support Not Reportable Pressure Control Not Reportable EPAP 6 IPAP 12 BiPAP Not Reportable Sodium 134 L (139-145) mmol/L Potassium 3.9 (3.5-5.0) mmol/L Chloride 105 (101-111) mmol/L Carbon Dioxide 21 L (22-32) mmol/L Anion Gap 8 (2-11) mmol/L BUN 9 (6-24) mg/dL Creatinine 0.81 (0.67-1.17) mg/dL Est GFR ( Amer) 126.3 (>60) Est GFR (Non-Af Amer) 98.2 (>60) BUN/Creatinine Ratio 11.1 (8-20) Glucose 119 H (70-100) mg/dL Lactic Acid (0.5-2.0) mmol/L Calcium 9.0 (8.6-10.3) mg/dL Total Bilirubin 0.40 (0.2-1.0) mg/dL AST 22 (13-39) U/L ALT 16 (7-52) U/L Alkaline Phosphatase 65 (34-104) U/L Troponin I 0.00 (<0.04) ng/mL Total Protein 6.5 (6.4-8.9) g/dL Albumin 4.3 (3.2-5.2) g/dL Globulin 2.2 (2-4) g/dL Albumin/Globulin Ratio 2.0 (1-3) 05/23/18 Range/Units 03:23 WBC (3.5-10.8) 10^3/ul RBC (4.0-5.4) 10^6/ul Hgb (14.0-18.0) g/dl Hct (42-52) % MCV (80-94) fL MCH (27-31) pg MCHC (31-36) g/dl RDW (10.5-15) % Plt Count (150-450) 10^3/ul MPV (7.4-10.4) um3 Neut % (Auto) (38-83) % Lymph % (Auto) (25-47) % [place] % (Auto) (0-7) % Eos % (Auto) (0-6) % Baso % (Auto) (0-2) % Absolute Neuts (auto) (1.5-7.7) 10^3/ul Absolute Lymphs (auto) (1.0-4.8) 10^3/ul Absolute Monos (auto) (0-0.8) 10^3/ul Absolute Eos (auto) (0-0.6) 10^3/ul Absolute Basos (auto) (0-0.2) 10^3/ul Absolute Nucleated RBC 10^3/ul Nucleated RBC % Patient Temperature ABG pH (7.35-7.45) ABG pH (Temp Correct) ABG pCO2 (35-45) mmHg ABG pCO2 (Temp Corrct ABG pO2 (80-100) mmHg ABG pO2 (Temp Correct ABG HCO3 (19-31) mmol/L ABG O2 Saturation (95-98) % ABG Base Excess (-2.0-2.0) Respiration Rate O2 Delivery Device Ventilator Type Vent Mode FiO2 Inspiratory Time PEEP Pressure Support Pressure Control EPAP IPAP BiPAP Sodium (139-145) mmol/L Potassium (3.5-5.0) mmol/L Chloride (101-111) mmol/L Carbon Dioxide (22-32) mmol/L Anion Gap (2-11) mmol/L BUN (6-24) mg/dL Creatinine (0.67-1.17) mg/dL Est GFR ( Amer) (>60) Est GFR (Non-Af Amer) (>60) BUN/Creatinine Ratio (8-20) Glucose (70-100) mg/dL Lactic Acid 1.2 (0.5-2.0) mmol/L Calcium (8.6-10.3) mg/dL Total Bilirubin (0.2-1.0) mg/dL AST (13-39) U/L ALT (7-52) U/L Alkaline Phosphatase (34-104) U/L Troponin I (<0.04) ng/mL Total Protein (6.4-8.9) g/dL Albumin (3.2-5.2) g/dL Globulin (2-4) g/dL Albumin/Globulin Ratio (1-3) Result Diagrams: 02/10/18 03:23 02/10/18 03:23 Lab Statement: Any lab studies that have been ordered have been reviewed, and results considered in the medical decision making process. - Radiology CXR Xray Interpretation: Positive (See Comments) - Emphysema. Atelectasis. No acute infiltrate. ED physician has reviewed this report. Radiology Interpretation Completed By: Radiologist - EKG 03:13 Cardiac Rate: Tachycardia EKG Rhythm: Sinus Tachycardia - 102 BPM EKG Interpretation: Nml axis. Baseline artificat. Non-specific ST. Re-Evaluation - Re-Evaluation First Eval Change: Improved - Patient is continuing to improve on BiPAP. He received breathing treatments, steroids and antibiotics. Magnesium is still infusing. Course/Dx - Course Course Of Treatment: Patient with long-standing poorly controlled COPD who is a frequent visitor to the ER for similar. He presents in respiratory distress/ failure with exacerbation. He was placed on CPAP by paramedics and was transitioned to BiPAP here. He is tolerating pressure of 12/6 very well. He was given IV steroids, antibiotics, IV magnesium and several breathing treatments. He is continuing to improve throughout his course. His O2 saturations are good. He is not extensively CO2 retaining according to his ABG. Hospitalist team was contacted and came to the ER to evaluate. They will admit patient to ICU. - Diagnoses Differential Diagnosis/HQI/PQRI: Positive: Asthma, Bronchitis, COPD Exacerbation , Pneumonia, Pneumothorax, Pulmonary Edema Provider Diagnoses: COPD exacerbation, Acute respiratory failure, Colostomy in place, Hx of ulcerative colitis - Critical Care Time Critical Care Time: 30-74 min - Critical care time of 35 minutes is exclusive of separately billable procedures. Discharge - Sign-Out/Discharge Documenting (check all that apply): Discharge/Admit/Transfer - Discharge Plan Condition: Guarded Disposition: ADMITTED TO [facility] Referrals: Allyn Heredia MD [Primary Care Provider] - - Billing Disposition and Condition Condition: GUARDED Disposition: [facility] The documentation as recorded by the Tre rangel Natalie accurately reflects the service I personally performed and the decisions made by , Girma Mclean MD.
[2018-02-10] MEDS: cefTRIAXone(*) 1 GM in NS 0.9% 50 ML* 50 ML IVPB SCH (05:01)
[2018-02-10 05:14] LABS: ABS Basophils 0 10^3/ul (0-0.2); ABS Eosinophils 0.2 10^3/ul (0-0.6); ABS Lymphocytes 0.4 10^3/ul (1.0-4.8); ABS Monocytes 0.4 10^3/ul (0-0.8); ABS Nucleated RBC 0 10^3/ul; Eosinophil % 1.8 % (0-6); Hematocrit 39 % (42-52); Mean Corpuscular HGB Conc 34 g/dl (31-36); Mean Corpuscular Hemoglobin 32 pg (27-31); Mean Corpuscular Volume 94 fL (80-94); Mean Platelet Volume 7.6 um3 (7.4-10.4); Nucleated Red Blood Cells % 0; Platelet Count 206 10^3/ul (150-450); Red Blood Count 4.11 10^6/ul (4.0-5.4); Red Cell Distribution Width 15 % (10.5-15); White Blood Count 12.1 10^3/ul (3.5-10.8)
[2018-02-10] MEDS: Azithromycin IV(*) 500 MG in NS 0.9% 250 ML* 250 ML IVPB SCH (05:16)
[2018-02-10 05:23] LABS: INR 1.06 (0.77-1.02)
[2018-02-10] MEDS ORDERED: Albuterol/Ipratropium NEB.SOL* Albuterol 2.5 MG/Ipratropium 0.5 MG 3 ML INH SCH (07:00)
[2018-02-10 07:02] LABS: Urine Appearance Cloudy; Urine Blood Negative (Negative); Urine Color Yellow; Urine Ketones Negative (Negative); Urine Protein Negative (Negative); Urine Specific Gravity 1.019 (1.010-1.030); Urine Urobilinogen Negative (Negative)
--- NOTE | 2018-02-10 07:45 | HP ---
CC: Dr. Heredia at [facility]. * HISTORY AND PHYSICAL: DATE OF ADMISSION: 02/10/18 PRIMARY CARE PROVIDER: Dr. Heredia at [facility]. ATTENDING PHYSICIAN WHILE IN THE HOSPITAL: Torri Zuniga MD * (report dictated by Mark Gutierrez NP) CHIEF COMPLAINT: Shortness of breath. HISTORY OF PRESENT ILLNESS: Mr. Yen is a 57-year-old male patient who has had 40 plus pack year history of smoking. He also has a history of AFib, sick sinus syndrome, status post pacemaker; COPD; ulcerative colitis; status post ileostomy; hepatitis C, and history of hypertension. He came into our ER today. He states the last couple of days he has had progressive worsening shortness of breath associated with cough. It has been nonproductive. He states he did not have respiratory symptoms prior to this. He said he did not feel stuffed up and no rhinorrhea. No sore throat. He did have the cough though. Things have just gotten more progressively worse and just had not been feeling well. He states that he has been trying to take his inhalers; they were not helping. He has also noted that he has been having some right-sided pain underneath his shoulder and along his right ribcage, worse with taking a deep breath, worse with any type of movement. He states that the coughing was making it much more pronounced and much worse. He states he was having palpitations. He checked his pulse, it was 105. He had left- sided chest pain too, described worse with any movement, when he stayed still, it he feels better. He denied having any pressure. He says he had no nausea or vomiting. No abdominal pain. There was concern because of the worsening of his breathing status, so he decided to come into the ED today. He was requiring positive pressure ventilation. Because his nebulizers were not helping, he came in. He is evaluated in the ED. He required BiPAP here. He received steroids and he is feeling better, but because of the amount of support he needed for his respiratory status, we were asked to evaluate for admission. PAST MEDICAL HISTORY: Significant for: 1. AFib. 2. Sick sinus syndrome. 3. COPD. 4. Ulcerative colitis. 5. Hepatitis C. 6. Hypertension. PAST SURGICAL HISTORY: 1. He has had pacemaker placement., 2. He has had a colectomy with ileostomy placement. 3. He has had bilateral knee arthroscopies. 4. Tonsillectomy. MEDICATIONS: Home meds according to the list that was provided include: 1. Albuterol 2 puffs every 4 hours as needed. 2. Flovent 1 puff inhaled b.i.d. 3. Serevent 1 puff inhaled b.i.d. 4. Xarelto 20 mg daily. 5. Metoprolol XL 200 mg daily. 6. Magnesium oxide 40 mg daily. 7. Valsartan 80 mg p.o. daily. ALLERGIES TO MEDICATIONS: Include CIPRO. FAMILY HISTORY: His mother in an MVA. Father was killed in an accident in [place]. SOCIAL HISTORY: He is a former smoker; he smoked about 41 years. He does not drink alcohol; his last drink was in October. When he was drinking, he was having 1 to 2 shots a day. Surrogate decision maker is his friend, Julia. REVIEW OF SYSTEMS: There is no documented fever. He denies having any significant weight change. There is no double vision. He denies having any ear discharge. Denied any rhinorrhea. Did admit to having cough. There is chest pain from HPI. He does admit to having shortness of breath, particularly with exertion. Denies any orthopnea. Denies any nocturnal dyspnea. He denies having any abdominal pain. There was no nausea, vomiting. No dysuria, no frequency, no seizures, no loss of consciousness. No pruritus. He had no skin ulceration. Review of 14 systems completed, all others negative. PHYSICAL EXAMINATION GENERAL: At this time, Mr. Yen is a 57-year-old male patient. He is sitting in the ED stretcher. He does not appear to be in any acute distress. Appears to be well nourished and well developed. VITAL SIGNS: Blood pressure 116/76 with a pulse of 107, respirations were 24, O2 sat 100% on 50% oxygen, and temperature is 97.1. HEENT: Head is atraumatic, normocephalic. Eyes: EOMs are intact. Sclerae are anicteric and not pale. Throat: Oral mucosa appears to be dry. No oropharyngeal erythema. NECK: Supple. LUNGS: He had wheezing noted throughout, expiratory. Good diaphragmatic expansion. HEART: Sounds S1, S2. He is in regular rate and rhythm. No murmurs, rubs, or gallops. ABDOMEN: Soft, flat. It was nontender. He has a colostomy bag to the right upper quadrant. The stoma appears to be pink. It was nontender. EXTREMITIES: Pulses are 2+ throughout. No peripheral edema. He is moving all 4 extremities. 5/5 strength. NEUROLOGICAL: He is awake, alert, and oriented x3. No gross focal deficits. SKIN: Intact. DIAGNOSTIC STUDIES/LAB DATA: Today, WBC of 10.8, RBC of 4.40, hemoglobin of 14.1, hematocrit of 41, and platelet count of 217. Blood gas: pH 7.29, pCO2 of 43, bicarb of 20. Sodium 134, potassium 3.9, chloride of 105, bicarb 21, BUN 9, creatinine 0.81, glucose 119, lactate 1.3, calcium 9. Total bili of 0.4 , AST 22, ALT 16, alk phos 55. Troponin 0. Albumin of 4.3. Chest x-ray obtained today. When I reviewed it, I did not appreciate any acute infiltrates. He did have findings suggestive of COPD, but no effusions, no infiltrates noted. Previous chest x-ray was similar. He had an EKG obtained today, does show a sinus tachycardia with a rate of 102. When reviewing the previous EKG, he does have diffuse ST depression and he has this with tonight's EKG. There is no significant change with the exception the rate is fast. Old medical records reviewed. ASSESSMENT AND PLAN: Mr. Yen is a 57-year-old female patient, coming into the emergency department today with complaints of cough, progressively worsening shortness of breath for the last 2 days and also atypical chest pain. He will be admitted under inpatient status for: 1. Chronic obstructive pulmonary disease exacerbation. At this point, he appears to have a significant COPD exacerbation. He has improved with BiPAP. I will continue steroids, Solu-Medrol 60 q.12. In addition to this, add nebs q.4 hours with p.r.n. Albuterol. I will place him in the ICU on the BiPAP. He is currently at 12/6. He is tolerating this well. We will titrate to his needs , but he states he is feeling better. We will put him on antibiotics in the form of azithromycin and Rocephin. I will try to get sputum cultures, legionella antigen, Strep pneumo antigen. Continue with aggressive pulmonary toileting and continue to follow him closely. 2. Atrial fibrillation. He appears to be in sinus rhythm. He is tachycardic currently. He will continue on his current medical regimen. 3. History of ulcerative colitis. He appears to be stable now. We will continue monitoring. 4. Hypertension. Continue meds as prescribed. 5. History of hepatitis C. Follow up with his primary. 6. DVT prophylaxis: He is on Xarelto. 7. Code status: Full code. 8. Fluids, electrolytes, and nutrition: He is n.p.o. with normal saline at 75 an hour given the BiPAP. TIME SPENT: On the admission was 60 minutes; greater than half the time was spent [id number] with the patient obtaining my history and physical, other half the time was spent going over the plan of care with the patient and implementing plan of care. I did discuss the plan of care with my attending, Dr. Zuniga; she is in agreement. MARK GUTIERREZ, CONRAD [id number]/[facility] #: [id number] ELIUD
--- NOTE | 2018-02-10 08:05 | RAD ---
HISTORY: Respiratory failure COMPARISONS: November 20, 2017 VIEWS: 1: frontal portable view of the chest at 3:10 AM FINDINGS: LINES AND TUBES: A left-sided pacemaker is noted. CARDIOMEDIASTINAL SILHOUETTE: The cardiomediastinal silhouette is normal for portable technique. PLEURA: The costophrenic angles are sharp. No pleural abnormalities are noted. LUNG PARENCHYMA: There is diffuse emphysematous change. There are relatively preserved parenchymal markings within the right mid lung, right lower lung, and left lower lung. ABDOMEN: The upper abdomen is clear. There is no subphrenic gas. BONES AND SOFT TISSUES: No bone or soft tissue abnormalities are noted. IMPRESSION: EMPHYSEMA
[2018-02-10] MEDS: Valsartan TAB* 80 MG PO SCH (08:52)
[2018-02-10] MEDS: Magnesium Oxide TAB* 400 MG PO SCH (08:52)
[2018-02-10] MEDS: methylPREDNISolone 125 MG* 2 ML VIAL IV SCH ×2 (08:52→20:29)
[2018-02-10] MEDS: Metoprolol Succinate XL TAB* 200 MG TAB.XL PO SCH (08:52)
[2018-02-10] MEDS ORDERED: Spiriva Inhaler DEVICE* 1 EACH DEVICE INH SCH (10:00)
[2018-02-10] MEDS ORDERED: Spiriva Inhaler DEVICE* 1 EACH DEVICE SCH (10:00)
[2018-02-10] MEDS: Mometasone/Formoter 200/5 MDI INH SCH ×2 (11:23→21:47)
--- NOTE | 2018-02-10 11:56 | PN ---
Date of Service: 02/10/18 Critical Care Services: Patient admitted last night for acute exacerbation of asthma. This AM is breathing comfortably, is clear of wheezing, and is oxygenaing well on room air. Vital Signs: Temp Pulse Resp BP SpO2 FiO2 98.3 F 78 20 107/71 94 50 Physical Exam: Gen:Alert, oriented, comfortable HEENT:No JVD Lungs: Clear Extremities:No cyanosis or edema Fluid Balance (Past 24 Hours): 02/11/18 06:59 Intake Total 840 Output Total 200 Balance 640 Weight Intake: Oral 840 Output: Urine 50 Colostomy 150 Labs: 02/10/18 02/10/18 02/10/18 04:20 05:05 05:05 INR (Anticoag Therapy) 1.06 H ABG pH 7.25 L ABG pCO2 42 ABG pO2 220 H ABG HCO3 18.3 L ABG O2 Saturation 100.1 H ABG Base Excess -8.5 L Respiration Rate 14 O2 Delivery Device bipap FiO2 50 EPAP 6 IPAP 12 Sodium 134 L Potassium 3.7 Chloride 107 Carbon Dioxide 19 L Anion Gap 8 BUN 9 Creatinine 0.74 Est GFR ( Amer) 140.2 Est GFR (Non-Af Amer) 109.0 BUN/Creatinine Ratio 12.2 Glucose 148 H Calcium 8.6 Troponin I 0.01 02/10/18 02/10/18 05:05 06:46 WBC 12.1 H RBC 4.11 Hgb 13.0 L Hct 39 L MCV 94 MCH 32 H MCHC 34 RDW 15 Plt Count 206 Urine Color Yellow Urine Appearance Cloudy Urine pH 5.0 Ur Specific [place] 1.019 Urine Protein Negative Urine Ketones Negative Urine Blood Negative Urine Nitrate Negative Urine Bilirubin Negative Urine Urobilinogen Negative Ur Leukocyte Esterase Negative Urine Glucose Negative Studies: Sputum Gram's stain: Multiple cell types and bacterial morphologies. Urine antigens negative for pneumococcus and legionella. Nutrition: Oral diet Impression: Acute exacerbation of asthma-resolving. No evidence of pneumonia. Plan: Continue bronchodilators, steroids, and antibittic coverage for URI. Patient needs social service assistance for obtaining meds, etc.
[2018-02-10] MEDS ORDERED: Rivaroxaban TAB(*) 20 MG TAB PO SCH (17:00)
[2018-02-11] MEDS: cefTRIAXone(*) 1 GM in NS 0.9% 50 ML* 50 ML IVPB SCH (05:10)
[2018-02-11] MEDS: Azithromycin IV(*) 500 MG in NS 0.9% 250 ML* 250 ML IVPB SCH (05:29)
[2018-02-11] MEDS: Mometasone/Formoter 200/5 MDI INH SCH (07:33)
[2018-02-11] MEDS: Magnesium Oxide TAB* 400 MG PO SCH (08:16)
[2018-02-11] MEDS: Metoprolol Succinate XL TAB* 200 MG TAB.XL PO SCH (08:16)
[2018-02-11] MEDS: methylPREDNISolone 125 MG* 2 ML VIAL IV SCH (08:16)
[2018-02-11] MEDS: Valsartan TAB* 80 MG PO SCH (08:17)
[2018-02-11] MEDS ORDERED: Tiotropium CAP.INH* CAP.INH/18 MCG (USE ORDER SET !) INH SCH (09:00)
[2018-02-11 11:58] VITALS: BP 136/69
--- NOTE | 2018-02-12 18:44 | DS ---
CC: Dr. Heredia * DISCHARGE SUMMARY: DATE OF ADMISSION: 02/10/18 DATE OF DISCHARGE: 02/11/18 PRIMARY CARE PROVIDER: Dr. Heredia in [facility]. PRIMARY DIAGNOSES: Asthma, chronic obstructive pulmonary disease overlap exacerbation. SECONDARY DIAGNOSES: Include atrial fibrillation, sick sinus syndrome, ulcerative colitis, and hypertension. MEDICATIONS ON DISCHARGE: Include: 1. Albuterol 2 puffs every 4 hours as needed. 2. Fluticasone 250 mcg twice daily. 3. Solu-Medrol 1 puff twice daily. 4. Xarelto 20 mg in the evening. 5. Metoprolol succinate 200 mg daily. 6. Magnesium oxide 400 mg daily. 7. Valsartan 80 mg daily. 8. Prednisone 50 mg daily for 5 additional days. 9. Spiriva 4 g inhaled daily. 10. Please note addition of tiotropium to the patient's discharge medications and albuterol nebulizer every 2 hours as needed for shortness of breath or wheezing. PERTINENT LABORATORY DATA: Arterial pH improved from presentation 7.29, partial pressure of CO2 of 42, and partial pressure of O2 of 221. PERTINENT IMAGING: Chest x-ray, impression: Emphysema. HISTORY OF PRESENT ILLNESS AND HOSPITAL COURSE: This is a 57-year-old man with past medical history as outlined in the history of present illness on the day of admission including long history of tobacco abuse with resolving COPD, atrial fibrillation on anticoagulation, who presented to the hospital with shortness of breath found with respiratory failure, placed in the intensive care unit. He received noninvasive positive pressure ventilation with BiPAP while in the emergency room with improvement as well as IV steroids. In the ICU , he continued BiPAP, improved quickly, much faster than expected, was back on room air and ambulating 24 hours after admission. It was noted by the drink mixer that his difficulty breathing was largely reversible with inhaled beta-agonists, leading to an presumptive diagnosis of an asthma exacerbation. I do not know if the patient has the formal diagnosis of asthma; therefore, I labeled this as overlap asthma, COPD exacerbation. The patient notes he recently moved to an upstairs in apartment where he does not have air- conditioning which he thinks is the trigger for this exacerbation. I will continue him on steroids for 6 additional days to complete 8 days of steroids. I am not continuing antibiotics with no source of infection or evidence of infection. I called his primary care physician whose office was going to contact his care provider to set him up for a followup in the next 5 days in order to assess the adequacy of the duration of steroids he was given. He was counseled tobacco cessation as well as avoidance of triggers including hot weather which may be difficult for him given his new apartment without air- conditioning. Air-conditioning for him is limited by his ability to pay for. Did utilize meds to beds for this patient to have his necessary medications delivered to him while he was in the hospital. There were no complications during the course of his hospital stay and we are happy that he improved faster than expected. The patient was ambulating around the unit multiple times before being discharged on room air. Reasons to return to the hospital included, but not limited to recurrent or worsening symptoms including shortness of breath or worsening wheezing, chest pain, nausea, vomiting, lightheadedness, loss of consciousness, or near loss of consciousness, bleeding from any source, or inability to obtain or tolerate medications discussed. The patient acknowledged understanding. TIME SPENT: Greater than 60 minutes was spent on discharging the patient, greater than half the time spent [id number] with the patient. [id number]/[facility] #: [id number] ELIUD
== END 2018-02-11 15:00 | disposition home or self-care (01) | DRG 140 ==
LOC: ED 02:50 → ICU 03:46 → MED 12:28
PROVIDERS: ADMIT Pediatrics; ATTEND Internal Medicine
PROC: 5A09357 Assistance with Respiratory Ventilation, Less than 24 Consecutive Hours, Continuous Positive Airway Pressure (ICD-10-PCS; principal; 2018-02-10)
DX: J44.1 Chronic obstructive pulmonary disease with (acute) exacerbation (principal); J96.01 Acute respiratory failure with hypoxia; K51.90 Ulcerative colitis, unspecified, without complications; J45.901 Unspecified asthma with (acute) exacerbation; I48.91 Unspecified atrial fibrillation; I10 Essential (primary) hypertension; B19.20 Unspecified viral hepatitis C without hepatic coma; Z95.0 Presence of cardiac pacemaker; Z93.2 Ileostomy status; Z88.1 Allergy status to other antibiotic agents; Z87.891 Personal history of nicotine dependence; Z86.19 Personal history of other infectious and parasitic diseases; Z87.01 Personal history of pneumonia (recurrent); Z82.49 Family history of ischemic heart disease and other diseases of the circulatory system; Z83.6 Family history of other diseases of the respiratory system; Z79.01 Long term (current) use of anticoagulants; Z79.51 Long term (current) use of inhaled steroids
CPT/HCPCS: 36415; 71045; 80048; 80053; 81003; 82803; 83605; 84484; 85025; 85610; 87070; 87086; 87205; 87641; 87899; 93005; 94640; 99285; A9270-GY; J0456; J0696; J2930; J3475

== ENCOUNTER 2018-03-21 19:28 | Emergency (ER) | payer OTHER ==
[2018-03-21] MEDS ORDERED: Albuterol/Ipratropium NEB.SOL* Albuterol 2.5 MG/Ipratropium 0.5 MG 3 ML INH ONE (20:01)
[2018-03-21] MEDS ORDERED: methylPREDNISolone 125 MG* 2 ML VIAL IV ONE (20:02)
[2018-03-21] MEDS ORDERED: Magnesium Sulfate 2 GM IV* 2 GM/50 ML BAG IVPB ONE (20:03)
[2018-03-21] MEDS ORDERED: NS 0.9% 1000 ML* 1,000 ML IV ONE (20:10)
[2018-03-21 20:41] LABS: ABS Basophils 0.1 10^3/ul (0-0.2); ABS Eosinophils 0.4 10^3/ul (0-0.6); ABS Lymphocytes 0.6 10^3/ul (1.0-4.8); ABS Monocytes 0.6 10^3/ul (0-0.8); ABS Neutrophils 9.2 10^3/ul (1.5-7.7); ABS Nucleated RBC 0 10^3/ul; Hematocrit 49 % (42-52); Hemoglobin 16.4 g/dl (14.0-18.0); Lymphocyte % 5.6 % (25-47); Mean Corpuscular HGB Conc 33 g/dl (31-36); Mean Corpuscular Hemoglobin 32 pg (27-31); Mean Corpuscular Volume 95 fL (80-94); Mean Platelet Volume 8.1 um3 (7.4-10.4); Nucleated Red Blood Cells % 0; Platelet Count 194 10^3/ul (150-450); Red Blood Count 5.19 10^6/ul (4.00-5.40); Red Cell Distribution Width 14 % (10.5-15)
[2018-03-21 20:49] LABS: INR 1.94 (0.77-1.02)
[2018-03-21 21:00] LABS: EGFR Non-African American 42.3 (>60)
[2018-03-21] MEDS: Albuterol 2.5 MG/3 ML NEB.SOL* (0.083%) INH SCH ×2 (21:00→21:30)
--- NOTE | 2018-03-21 21:24 | RAD ---
Indication: Shortness of breath. 2 views of the chest including dual energy PA views demonstrates hyperinflated lung key. Pacemaker leads are in place. No definite alveolar consolidation is noted. Likely nipple shadow is noted in the midlung key bilaterally as noted previously. IMPRESSION: No active cardiopulmonary disease is noted.
[2018-03-21] MEDS ORDERED: Levofloxacin TAB* 750 MG PO ONE (22:30)
[2018-03-21] MEDS ORDERED: Amoxicillin/Clavulanate TAB* 875 MG PO ONE (22:32)
[2018-03-21 22:51] VITALS: BP 108/74
--- NOTE | 2018-03-21 23:08 | ED ---
John Rosenberg Gabriel, scribed for Renetta Das MD on 03/21/18 at 2015 . Shortness of Breath - HPI Summary HPI Summary: This patient is a 57 year old M BIBA to [facility] with a chief complaint of SOB that began today at 1500. At this time the patient began to experience palpitations that he attributed to his AFib. Along with this he became SOB which is typical for his AFib. He has a hx of COPD and used his inhalers with no relief. He is not on NC O2 at home. Pt has a pacer and chronic CP, he is concerned that the pacer shifted. Patient reports lightheadedness - History of Current Complaint Chief Complaint: EDShortnessOfBreath Time Seen by Provider: 03/21/18 19:54 Hx Obtained From: Patient Onset/Duration: Still Present Timing: Constant Current Severity: Mild Associated Signs & Symptoms: Chest Pain Unrelated to Cough - Allergy/Home Medications Allergies/Adverse Reactions: Allergies Allergy/AdvReac Type Severity Reaction Status Date / Time ciprofloxacin Allergy Itching Verified 11/20/17 09:48 PMH/Surg Hx/FS Hx/Imm Hx Endocrine/Hematology History: Denies: Hx Anticoagulant Therapy, Hx Diabetes, Hx Systemic Lupus Erythematosus, Hx Thyroid Disease Cardiovascular History: Reports: Hx Atrial Fibrillation - no anticoagulants used currently, Hx Hypertension, Other Cardiovascular Problems/Disorders - A FIB Denies: Hx Congestive Heart Failure, Hx Deep Vein Thrombosis, Hx Myocardial Infarction, Hx Pacemaker/ICD Respiratory History: Reports: Hx Asthma, Hx Chronic Obstructive Pulmonary Disease (COPD), Other Respiratory Problems/Disorders - PNA Denies: Hx Lung Cancer, Hx Pneumonia, Hx Pulmonary Embolism GI History: Reports: Hx Gastrointestinal Bleed, Hx Obstructive Bowel, Hx Ileostomy - colostomy 2012, Other GI Disorders - colostomy, ulcerative colitis Denies: Hx Gall Bladder Disease, Hx Ulcer, Hx Urosepsis History: Denies: Hx Kidney Stones, Hx Renal Disease Musculoskeletal History: Reports: Hx Orthopedic Injury - surgeries in both knees Denies: Hx Arthritis, Hx Rheumatoid Arthritis, Hx Osteoporosis Sensory History: Reports: Hx Contacts or Glasses Denies: Hx Hearing Aid, Other Sensory Impairments Opthamlomology History: Reports: Hx Contacts or Glasses Denies: Other Sensory Impairments Neurological History: Denies: Hx Dementia, Hx Migraine, Hx Seizures, Hx Transient Ischemic Attacks (TIA) Psychiatric History: Denies: Hx Anxiety, Hx Depression, Hx Schizophrenia, Hx Bipolar Disorder - Cancer History Hx Chemotherapy: No - Surgical History Surgery Procedure, Year, and Place: COLECTOMY FOR ULCERATIVE COLITIS AT [facility] - has ostomy now 12/2012; bilat knees for cartilage. Tonsils Hx Anesthesia Reactions: No - Immunization History Date of Influenza Vaccine: 06/07/16 Infectious Disease History: No Infectious Disease History: Reports: Hx Hepatitis - hep c Denies: Hx Clostridium Difficile, Hx Human Immunodeficiency Virus (HIV), Hx of Known/Suspected MRSA, Hx Shingles, Hx Tuberculosis, Hx Known/Suspected VRE, Hx Known/Suspected VRSA, History Other Infectious Disease, Traveled Outside the [place] in Last 30 Days - Family History Known Family History: Positive: Hypertension, Respiratory Disease, Other - adopted - Social History Alcohol Use: Occasionally Alcohol Amount: was daily Hx Substance Use: No Substance Use Type: Reports: None Hx Tobacco Use: Yes Smoking Status (MU): Former Smoker Type: Cigarettes Amount Used/How Often: 1/2 ppd Length of Time of Smoking/Using Tobacco: 40 years Have You Smoked in the Last Year: Yes Review of Systems Positive: Palpitations, Chest Pain Positive: Shortness Of Breath Neurological: Other - light headedness All Other Systems Reviewed And Are Negative: Yes Physical Exam - Summary Physical Exam Summary: VITAL SIGNS: Reviewed. GENERAL: Patient is a well-developed and nourished male who is lying comfortable in the stretcher. Patient is not in any acute respiratory distress. HEAD AND FACE: No signs of trauma. No ecchymosis, hematomas or skull depressions. No sinus tenderness. EYES: PERRLA, EOMI x 2, No injected conjunctiva, no nystagmus. EARS: Hearing grossly intact. Ear canals and tympanic membranes are within normal limits. MOUTH: Oropharynx within normal limits. NECK: Supple, trachea is midline, no adenopathy, no JVD, no carotid bruit, no c- spine tenderness, neck with full ROM. CHEST: Symmetric, no tenderness at palpation LUNGS: decreased breath sounds bilaterally. Mild inspiratory and expiratory wheezes. CVS: Regular rate and rhythm, S1 and S2 present, no murmurs or gallops appreciated. ABDOMEN: Soft, non-tender. No signs of distention. No rebound no guarding, and no masses palpated. Bowel sounds are normal. EXTREMITIES: FROM in all major joints, no edema, no cyanosis or clubbing. NEURO: Alert and oriented x 3. No acute neurological deficits. Speech is normal and follows commands. SKIN: Dry and warm Triage Information Reviewed: Yes Vital Signs On Initial Exam: Initial Vitals Temp Pulse Resp BP Pulse Ox 97.2 F 69 18 138/106 92 03/21/18 19:34 03/21/18 19:34 03/21/18 19:34 03/21/18 19:34 03/21/18 19:34 Vital Signs Reviewed: Yes Diagnostics - Vital Signs Vital Signs Temp Pulse Resp BP Pulse Ox 03/21/18 19:35 70 21 220/184 98 03/21/18 19:34 97.2 F 68 22 138/106 97 - Laboratory Result Diagrams: 03/21/18 20:32 03/21/18 20:32 Lab Statement: Any lab studies that have been ordered have been reviewed, and results considered in the medical decision making process. - Radiology CXR Radiology Interpretation Completed By: ED Physician - hyperinflation consistent with COPD, no acute infiltrate Pending official report. - EKG 2009 Cardiac Rate: NL EKG Rhythm: Sinus Rhythm - at 66 BPM EKG Interpretation: Normal axis. Normal interval. No ischemic changes Re-Evaluation - Re-Evaluation First Eval Re-Evaluation Time: 22:32 Change: Improved Comment: The pt is feeling better. Lung exam shows decreased wheezing. Course/Dx - Course Assessment/Plan: This patient is a 57 year old M BIBA to [facility] with a chief complaint of SOB that began today at 1500. At this time the patient began to experience palpitations that he attributed to his AFib. Along with this he became SOB which is typical for his AFib. He has a hx of COPD and used his inhalers with no relief. He is not on [place] O2 at home. Pt has a pacer and chronic CP, he is concerned that the pacer shifted. Patient reports lightheadedness. An EKG reveals NSR. CXR reveals, hyperinflation consistent with COPD, no acute infiltrate. Test results with no significant abnormalities except for a glucose of 144. In the ED course the patient was given breathing treatments which alleviated the sx. Patient will be discharged with prescription for Augmentin and prednisone and follow up from PCP. The patient is agreeable with this plan. - Diagnoses Provider Diagnoses: COPD (chronic obstructive pulmonary disease), Bronchitis Discharge - Sign-Out/Discharge Documenting (check all that apply): Discharge/Admit/Transfer - Discharge Plan Condition: Stable Disposition: HOME Prescriptions: Amoxicillin/Clavulanate TAB* [Augmentin TAB 875*] 875 mg PO BID #14 tab Patient Education Materials: Acute Bronchitis (ED), COPD (Chronic Obstructive Pulmonary Disease) (ED) Referrals: Allyn Heredia MD [Primary Care Provider] - 2 Days Additional Instructions: RETURN TO THE ER FOR ANY NEW OR WORSENING SYMPTOMS The documentation as recorded by the John rangel Gabriel accurately reflects the service I personally performed and the decisions made by , Renetta Das MD.
== END 2018-03-21 22:55 | disposition home or self-care (01) ==
LOC: ED 19:28
DX: J44.9 Chronic obstructive pulmonary disease, unspecified (principal); J40 Bronchitis, not specified as acute or chronic; R07.9 Chest pain, unspecified; G89.29 Other chronic pain; Z95.0 Presence of cardiac pacemaker; Z93.3 Colostomy status; Z87.891 Personal history of nicotine dependence; Z88.3 Allergy status to other anti-infective agents
CPT/HCPCS: 36415; 71046; 80053; 84484; 85025; 85610; 85730; 86140; 87040; 93005; 96361; 96365; 96375; 99284; A9270-GY; J2930; J3475

== ENCOUNTER 2018-05-15 17:22 | Emergency (ER) | payer OTHER ==
[2018-05-15] MEDS ORDERED: Albuterol/Ipratropium NEB.SOL* Albuterol 2.5 MG/Ipratropium 0.5 MG 3 ML INH ONE ×2 (17:29→18:11)
[2018-05-15] MEDS ORDERED: methylPREDNISolone 125 MG* 2 ML VIAL IV ONE (17:29)
[2018-05-15] MEDS ORDERED: NS 0.9% 1000 ML* 1,000 ML IV SCH (17:30)
--- NOTE | 2018-05-15 17:50 | ED ---
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 Patient states that he is not moving air effectively through his lungs and has tight sounds with his wheezing. The pain is rated 0/10 in severity. Symptoms aggravated by nothing. Symptoms alleviated by nothing - History of Current Complaint Chief Complaint: EDShortnessOfBreath Time Seen by Provider: 05/15/18 17:28 Hx Obtained From: Patient Onset/Duration: Still Present Current Severity: Moderate Dyspnea At: Rest Aggrevating Factors: Nothing Alleviating Factors: Nothing Associated Signs & Symptoms: Negative - fever - Allergy/Home Medications Allergies/Adverse Reactions: Allergies Allergy/AdvReac Type Severity Reaction Status Date / Time ciprofloxacin Allergy Itching Verified 11/20/17 09:48 PMH/Surg Hx/FS Hx/Imm Hx Previously Healthy: No Endocrine/Hematology History: Denies: Hx Anticoagulant Therapy, Hx Diabetes, Hx Systemic Lupus Erythematosus, Hx Thyroid Disease Cardiovascular History: Reports: Hx Atrial Fibrillation - no anticoagulants used currently, Hx Hypertension, Other Cardiovascular Problems/Disorders - A FIB Denies: Hx Congestive Heart Failure, Hx Deep Vein Thrombosis, Hx Myocardial Infarction, Hx Pacemaker/ICD Respiratory History: Reports: Hx Asthma, Hx Chronic Obstructive Pulmonary Disease (COPD), Other Respiratory Problems/Disorders - PNA Denies: Hx Lung Cancer, Hx Pneumonia, Hx Pulmonary Embolism GI History: Reports: Hx Gastrointestinal Bleed, Hx Obstructive Bowel, Hx Ileostomy - colostomy 2012, Other GI Disorders - colostomy, ulcerative colitis Denies: Hx Gall Bladder Disease, Hx Ulcer, Hx Urosepsis History: Denies: Hx Kidney Stones, Hx Renal Disease Musculoskeletal History: Reports: Hx Orthopedic Injury - surgeries in both knees Denies: Hx Arthritis, Hx Rheumatoid Arthritis, Hx Osteoporosis Sensory History: Reports: Hx Contacts or Glasses Denies: Hx Hearing Aid, Other Sensory Impairments Opthamlomology History: Reports: Hx Contacts or Glasses Denies: Other Sensory Impairments Neurological History: Denies: Hx Dementia, Hx Migraine, Hx Seizures, Hx Transient Ischemic Attacks (TIA) Psychiatric History: Denies: Hx Anxiety, Hx Depression, Hx Schizophrenia, Hx Bipolar Disorder - Cancer History Hx Chemotherapy: No - Surgical History Surgery Procedure, Year, and Place: COLECTOMY FOR ULCERATIVE COLITIS AT [facility] - has ostomy now 12/2012; bilat knees for cartilage. Tonsils Hx Anesthesia Reactions: No - Immunization History Date of Influenza Vaccine: 06/07/16 Infectious Disease History: Reports: Hx Hepatitis - hep c Denies: Hx Clostridium Difficile, Hx Human Immunodeficiency Virus (HIV), Hx of Known/Suspected MRSA, Hx Shingles, Hx Tuberculosis, Hx Known/Suspected VRE, Hx Known/Suspected VRSA, History Other Infectious Disease - Family History Known Family History: Positive: Hypertension, Respiratory Disease, Other - adopted - Social History Alcohol Use: Occasionally Alcohol Amount: was daily Hx Substance Use: No Substance Use Type: Reports: None Hx Tobacco Use: Yes Smoking Status (MU): Former Smoker Type: Cigarettes Amount Used/How Often: 1/2 ppd Length of Time of Smoking/Using Tobacco: 40 years Have You Smoked in the Last Year: Yes Review of Systems Negative: Fever Positive: Shortness Of Breath All Other Systems Reviewed And Are Negative: Yes Physical Exam - Summary Physical Exam Summary: General: well-appearing, no pain distress Skin: warm, color reflects adequate perfusion, dry Head: normal Eyes: EOMI, WALLACE ENT: normal Neck: supple, nontender Respiratory: Mild to moderate respiratory distress. Pursed lip breathing. Wheezing on inspiration and expiration Cardiovascular: RRR Abdomen: soft, nontender Bowel: present Musculoskeletal: normal, strength/ROM intact Neurological: sensory/motor intact, A&O x3 Psychological: affect/mood appropriate Triage Information Reviewed: Yes Vital Signs Reviewed: Yes Diagnostics - Laboratory Result Diagrams: 05/15/18 18:40 05/15/18 18:40 Lab Statement: Any lab studies that have been ordered have been reviewed, and results considered in the medical decision making process. - Radiology CXR Xray Interpretation: No Acute Changes - CXR reveals, Flat diaphragm, no infiltrate, pacemaker noted Radiology Interpretation Completed By: ED Physician - EKG 1736 Cardiac Rate: NL EKG Rhythm: Sinus Rhythm - 93 BPM EKG Interpretation: Normal ST, no ectopy Re-Evaluation - Re-Evaluation First Eval Re-Evaluation Time: 19:07 Change: Improved Comment: Now, improved air movement and only wheezing in expiration. No pursed lip breathing anymore. Mild respiratory distress. 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 Patient states that he is not moving air effectively through his lungs and has tight sounds with his wheezing. EKG and CXR ordered and reviewed. Bloodwork Obtained. Medications reviewed. Allergies noted. Test results with no significant abnormalities. In the ED course the patient was given NS 0.9% bolus IV, prednisone 60mg PO, Solu-medrol 125mg IV, Magnesium oxide 400mg PO, DUONEB nebulizer INH x2. IMPROVED IN ED. F/U PMD; RETURN TO ED IF WORSE. - Diagnoses Provider Diagnoses: COPD exacerbation Discharge - Sign-Out/Discharge Documenting (check all that apply): Patient Departure - Discharge Plan Condition: Stable Disposition: HOME Prescriptions: Azithromyxin CLAY (NF) [Z-Clay (Zithromax) 250 mg tabs #6] 2 tab PO .TODAY, THEN 1 DAILY #6 tab predniSONE TAB* [Deltasone 20 MG TAB*] 40 mg PO DAILY #8 tab Patient Education Materials: COPD (Chronic Obstructive Pulmonary Disease) (ED) , Hypomagnesemia (ED) Referrals: Allyn Heredia MD [Primary Care Provider] - Additional Instructions: FOLLOW UP WITH YOUR DOCTOR. INCREASE YOUR MAGNESIUM TO 400MG TWICE A DAY. RETURN TO THE EMERGENCY DEPARTMENT FOR ANY WORSENING OF YOUR CONDITION OR QUESTIONS OR CONCERNS. - Billing Disposition and Condition Condition: STABLE Disposition: Home - Attestation Statements Document Initiated by Ej: Yes Documenting Scribe: Artie Becerril Provider For Whom Ej is Documenting (Include Credential): Hair Gordon MD Scribe Attestation: Artie Rosenberg, scribed for Hair Gordon MD on 05/15/18 at 2143. Scribe Documentation Reviewed: Yes Provider Attestation: The documentation as recorded by the Artie rangel accurately reflects the service I personally performed and the decisions made by me, Hair Gordon MD
--- OUTSIDE RECORDS SUMMARY | 2018-05-15 18:16 | XMS REPORT ---
:1960 External Reference #:[id number] Author Organization [employer] Address [address] [place] [address] Phone [phone] Care Team Providers Name Role Phone Allyn Heredia MD Primary Care Physician Unavailable Payers Type Date Identification Numbers Payment Provider Subscriber Commercial Policy Number: [id number] [employer] Number: [id number] [address] PayID: [id number] [place] [address] Commercial Expires: 2016 PayID: [id number] [employer] Employee [address] [place] [address] Problems Date Description Provider Status Onset: 02/11/2018 Essential hypertension Franklin Henriquez M.D. Active Onset: 02/11/2018 Atrial fibrillation Franklin Henriquez M.D. Active Onset: 02/11/2018 Chronic obstructive pulmonary disease w Franklin Henriquez M.D. 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 Daily Caffeine Occasional coffee Exercise Type/Frequency Does not exercise Limited following heart surgery Allergies, Adverse Reactions, Alerts Date Description Reaction Status Severity Comments 11/12/2017 Cipro swelling and redness w/IV active Medications Medication Date Status Form Strength Qnty SIG Indications Ordering Provider Losartan 05/10 Active Tablets 100mg 30tab 1 by mouth Josie Cyndi Potassium /2018 s every day Willis N.P. Oxygen 05/10 Active Misc use 2l at R09.02 Josie Soliz. /2017 night and Willis with N.P. ambulation. please provide patient with portable oxygen concentrator Magnesium 00 Active Tablets 400mg 1 by mouth Unknown /0000 every day Xarelto Active Tablets 20mg 1 by mouth Unknown /0000 every day Metoprolol Active Tablets 300mg 1 by mouth Unknown Tartrate /0000 one time per day Ventolin HFA Active Aerosol 108(90Bas 2 puffs by Unknown /0000 e) mouth four mcg/Act times a day as needed Levalbuterol Active Nebulizer 1.25mg/0. Inhale One Unknown HCL /0000 5ML Vial 0.5ML Via Nebulizer as Directed Every 4 Hours as Needed Symbicort Active Aerosol 80-4.5mcg 30.6g 1 puff twice Sanjuanita /0000 /Act m a day MD Joan Incruse Active Aerosol 62.5mcg/I 30uni inhale one Sanjuanita Ellipta /0000 nh ts puff by mouth MD Joan every day Furosemide 02/16 Hx Tablets 20mg 30tab 1 by mouth I50.22 Roger Hollis, /2017 s every day - 04/06 Fluticasone 11/12 Hx 250mcg one puff Annmarie inhaled bid Shaji Chavez M.D. 04/06 Albuterol Hx Nebulizer (2.5mg/3M 1 vial via Unknown Sulfate /0000 L) 0.083% nebulizer 4 - times daily 04/06 as needed /2017 Metoprolol Hx Tablets 100mg take 1 1/2 Unknown Tartrate /0000 tablet by - mouth twice a /2017 Amlodipine Hx Tablets 2.5mg 1 by mouth Unknown Besylate /0000 every day - 02/15 Prednisone Hx Tablets 10mg take 50mg for Unknown /0000 5 days (ends - 02/17/18) 04/06 Valsartan Hx Tablets 80mg 1 by mouth Unknown /0000 every day - 05/06 Serevent Hx Aerosol 50mcg/Dos 1 puff twice Unknown Diskus /0000 e a day - 05/06 Flovent Diskus 00/00 Hx Aerosol 250mcg/Bl 1 puff two Cannariato /0000 ist times per day , - as needed Allyn 05/06 MD Mitesh Vital Signs Date Vital Result Comment 05/10/2018 Height 66 inches 5'6" Weight 143.38 lb Heart Rate 72 /min BP Systolic Sitting 140 mmHg BP Diastolic Sitting 100 mmHg O2 % BldC Oximetry 94 % at rest on room air BMI (Body Mass Index) 23.1 kg/m2 04/07/2018 Height 66 inches 5'6" Weight 137.38 lb Heart Rate 72 /min BP Systolic Sitting 108 mmHg Lue reg cuff BP Diastolic Sitting 76 mmHg Lue reg cuff Respiratory Rate 16 /min O2 % BldC Oximetry 96 % BMI (Body Mass Index) 22.2 kg/m2 Neck Circumference in inches 15.5 02/16/2018 Height 66 inches 5'6" Weight 144.00 lb Heart Rate 60 /min BP Systolic Sitting 150 mmHg BP Diastolic Sitting 88 mmHg Respiratory Rate 20 /min Body Temperature 97.2 F Pain Level 0 O2 % BldC Oximetry 97 % BMI (Body Mass Index) 23.2 kg/m2 11/12/2017 Height 66 inches 5'6" Weight 134.00 lb w/ shoes Heart Rate 60 /min irregular BP Systolic Sitting 118 mmHg lue reg cuff BP Diastolic Sitting 92 mmHg lue reg cuff Respiratory Rate 18 /min BMI (Body Mass Index) 21.6 kg/m2 Ejection Fraction 35-40% echo 11/01/2017 Results Description No Information Procedures Date CPT Code Description Status 04/26/2018 65613 Diffusing Capacity Completed 04/26/2018 80568 Plethysmography Determination Lung Volumes & Per Airway Completed Resist 04/26/2018 84354 Pulmonary Stress Testing, Inc Measurement Heart Rate, Completed Oximetry 04/26/2018 99401 Pulmonary Function><Bronchodil Completed 11/20/2017 25921 ECHO Transthorasic Realtime 2D W Doppler & Color Flow Completed Hosp 11/20/2017 83899 EKG, Interpretation Only Completed 11/20/2017 80462 Cardioversion Completed 11/06/2017 59072 EKG, Interpretation Only Completed 11/05/2017 Colonoscopy Completed 11/05/2017 60785 Endoscopy Upper GI Biopsy Completed 11/05/2017 77454 Ileoscopy Through Stoma Diagnostic Completed 11/05/2017 58087 EKG, Interpretation Only Completed 11/04/2017 71322 EKG, Interpretation Only Completed 11/03/2017 04675 EKG, Interpretation Only Completed 11/02/2017 65302 EKG, Interpretation Only Completed 11/01/2017 30580 Echocardiogram, Limited Study Completed 10/31/2017 06349 EKG, Interpretation Only Completed 08/28/2017 66173 ECHO Transthorasic Realtime 2D W Doppler & Color Flow Completed Hosp 08/28/2017 37091 EKG, Interpretation Only Completed 10/26/2015 21630 ECHO Transthorasic Realtime 2D W Doppler & Color Flow Completed Hosp Encounters Type Date Location Provider CPT E/M Dx Office Visit 04/07/2018 [facility] [place] [address] J44.9 9:30a Services [facility] Interface Engineer J45.909 G47.9 Z87.891 Office Visit 02/16/2018 9:30a [facility] [place] [address] I50.22 Interface Engineer J44.9 J45.901 I48.0 I42.9 Office Visit 02/11/2018 11:09a [facility], Franklin Henriquez, 59698 J44.1 Hospitalists Yobany I48.91 I10 Office Visit 02/10/2018 11:08a [facility], Mc Gutierrez, 44367 J44.1 Hospitalists Betty I48.91 I10 Office Visit 11/21/2017 2:46p [facility], Morro Spears, 15218 I48.0 Hospitalists Yobany I48.0 J44.9 J44.9 K51.00 I50.23 I50.23 Office Visit 11/20/2017 8:53a [facility] Vernon Grubbs, 26285 I48.0 Geremias Haywood, [facility] I50.9 Office Visit 11/20/2017 2:46p [facility], KIA Leal 47522 I48.0 Hospitalists J44.9 K51.00 I50.23 Office Visit 11/12/2017 1:45p [facility] Annmarie Chavez M.D. 42597 I48.0 Interface Engineer AT [facility] I49.5 R55 Z95.0 Office Visit 11/08/2017 11:15a [facility],pc Jodie German N.P. 31006 J96.22 Hospitalists J69.0 J44.1 I48.91 Office Visit 11/07/2017 2:44p [facility] Annmarie Chavez M.D. 13700 I48.0 Interface Engineer I42.9 Office Visit 11/07/2017 11:14a [facility],deangelo German, N.P. 04952 J96.22 Hospitalists J69.0 I48.91 Office Visit 11/06/2017 2:47p [place] [address] I48.0 J43.9 I42.9 D72.829 Office Visit 11/06/2017 3:14p [facility] Xena Hanna 11601 I48.91 Yobany Spencer Office Visit 11/05/2017 2:00p [facility] Annmarie Chavez M.D. 62153 I48.0 Interface Engineer I42.9 Office Visit 11/05/2017 11:14a [facility],deangelo Perez, 33873 J96.22 Hospitalists MD Uriarte.0 J44.1 I48.91 Office Visit 11/04/2017 7:00a [facility] [place] [address] Z87.19 Office Visit 11/04/2017 11:13a [facility],deangelo Lozano 13569 J96.22 Hospitalists MD Ana J69.0 J44.1 I48.91 Office Visit 11/04/2017 12:39p [facility] Annmarie Chavez M.D. 78915 I48.0 Interface Engineer I42.9 Office Visit 11/03/2017 2:17p [facility] Jeronimo Garcia 33680 I49.5 Geremias Haywood Office Visit 11/03/2017 11:13a [facility],deangelo Perez, 01777 J96.22 Hospitalists MD Uriarte.0 J44.1 I48.91 Office Visit 11/02/2017 11:12a [facility],pc Darryl Blake Perez, 32443 J96.22 Hospitalists J69.0 J44.1 I48.91 Office Visit 11/02/2017 2:19p [facility] Jeronimo Garcia, 17153 I48.91 Geremias Haywood I49.5 Office Visit 11/01/2017 11:11a [facility],deangelo Ji 32637 J96.22 Hospitalists John Beauchamp J69.0 J44.1 I48.91 Office Visit 11/01/2017 4:37p [facility] Kush Dickens M.D. 91079 I49.5 J44.1 Office Visit 10/31/2017 11:10a [facility],deangelo Ji 91490 J96.22 Hospitalists John Beauchamp J69.0 J44.1 I48.91 Office Visit 10/31/2017 4:38p [facility] Kush Dickens M.D. 31539 I48.0 I49.5 J44.1 Office Visit 10/30/2017 11:09a [facility] Guillermo Beauchamp D.O. 64467 J96.22 J69.0 J44.1 I48.91 Office Visit 10/30/2017 4:33p [facility] Kush Dickens M.D. 31909 I48.0 J44.9 R94.31 Office Visit 10/14/2017 8:57a [facility], Preethi Mckeon, 96047 J44.1 Hospitalists Yobany Office Visit 09/29/2017 11:00a [facility],deangelo Kruger, 16489 J44.1 Hospitalists John I48.0 Office Visit 09/28/2017 11:00a [facility],deangelo Kruger, 56753 J44.1 Hospitalists ChristopheOOsmani I48.0 Office Visit 09/27/2017 11:00a [facility], Preethi Mckeon, 66606 J44.1 Hospitalists Yobany I48.0 Office Visit 08/30/2017 8:02a [facility],pc Jodie German, N.P. 24349 I48.91 Hospitalists K51.90 J44.1 Office Visit 08/29/2017 8:02a [facility],pc Jodie German, N.P. 85658 I48.91 Hospitalists K51.90 J44.1 Office Visit 08/28/2017 8:00a [facility] Mc Matt, 90390 I48.91 Assoc, Hospitalists N.P. K51.90 J44.1 Office Visit 08/28/2017 12:15p [facility] Sarahsinai Spencer, 09202 R07.9 M.Christophe M25.519 R00.0 I48.2 I34.0 F10.10 Z87.891 Office Visit 07/20/2017 7:00a [facility],pc Josie Pedro, 85709 J44.1 Hospitalists N.P. I48.0 Z87.891 Office Visit 07/19/2017 6:59a [facility],[place] [address] J44.1 Hospitalists I48.0 Z87.891 Office Visit 07/18/2017 6:58a [facility],pc Melina Maldonado, CONRAD 54658 J44.1 Hospitalists I48.0 Z87.891 Office Visit 02/09/2017 10:55a [facility] Renny Jones, 44094 J44.1 Assoc, [place] Hospitalists R00.0 R07.9 I48.0 Office Visit 02/08/2017 10:53a [facility] Jamia Luna, 22306 J44.1 Assoc,pc SCREEDMAN Hospitalists R00.0 R07.9 I48.0 Office Visit 11/18/2016 3:43p [facility], Preethi Mckeon, 47984 J18.1 Hospitalists Yobany J44.1 Office Visit 11/17/2016 3:43p [facility], Preethi Mckeon, 77841 J44.1 Hospitalists Yobany J18.1 Office Visit 09/30/2016 2:40p [facility], Jodie German N.P. 80011 J44.1 Hospitalists I10 Office Visit 09/29/2016 2:39p [facility], Jodie German, N.P. 14706 J44.1 Hospitalists I10 B18.2 Office Visit 09/17/2016 7:13a [facility], Parviz Ruff M.D. 29174 J18.1 Hospitalists J44.9 I48.91 B19.20 Office Visit 09/16/2016 7:12a [facility], Parviz Ruff M.D. 77075 J18.1 Hospitalists J44.9 I48.91 B19.20 Office Visit 09/15/2016 7:11a [facility], Yahir Lubin, 43109 J18.1 Hospitalists Yobany,FACP J44.9 I48.91 Office Visit 09/14/2016 7:11a [facility], Mc Gutierrez, 13694 J44.9 Hospitalists N.P. J18.1 I48.91 B19.20 Office Visit 06/07/2016 12:35p [facility], Morro Spears, 47654 J44.1 Hospitalists MOsmaniDOsmani I48.0 Office Visit 06/06/2016 12:35p [facility], Morro Spears, 96941 J44.1 Hospitalists Yobany I48.0 Office Visit 10/27/2015 2:05p [facility] Nayanataybeh SOsmani Spencer, 77921 I48.91 M.DOsmani I42.9 Office Visit 10/27/2015 12:35p [facility], Morro Spears, 74768 I48.91 Hospitalists Yobany R55 J44.9 K51.80 Office Visit 10/26/2015 4:07p [facility] [place], 53025 I48.91 M.D. I42.9 F17.210 Office Visit 10/26/2015 12:35p [facility], Parviz Ruff M.D. 23941 I48.91 Hospitalists R55 J44.9 K51.80 Office Visit 03/21/2015 9:40a [facility] Julia Watkins, Imelda.P. 78573 V74.1 V70.3 V70.5 Office Visit 12/28/2014 10:30a [facility] [place],[place] [address] 486 Hospitalists 785.0 556.9 491.21 Office Visit 12/27/2014 10:29a [facility] [address] 486 Hospitalists 785.0 556.9 491.21 Office Visit 12/26/2014 [facility] [address] 486 Hospitalists 785.0 556.9 491.21 Plan of Care Future Appointment(s):08/11/2018 9:00 am - Sanjuanita Franco MD at [facility]05/10/2018 - Josie Pedro, N.P.R09.02 HypoxemiaNew Medication:OxygenRecommendations:Wear oxyen with exertion and at night.J45.909 Unspecified asthma, auvwbcktjffhiV25.0 Paroxysmal atrial asbaemkwkjukX17.9 Sleep disorder, kubcytgjlayA88.9 Chronic obstructive pulmonary disease, unspecifiedComments:Your lung function is significantly decreasedContinue Incruse and SymbicortUse nebulizer PRNFollow up:3-4mo DALIA Franco
--- OUTSIDE RECORDS SUMMARY | 2018-05-15 18:16 | XMS REPORT ---
:1960 External Reference #:[id number] Author Organization [facility] [employer] Address [address] [place] [address] Phone [phone] Care Team Providers Name Role Phone Allyn Heredia M.D. Primary Care Physician Unavailable Payers Type Date Identification Numbers Payment Provider Subscriber Commercial Policy Number: [id number] [employer] Yen PayID: [id number] [address] [place] [id number] Problems Date Description Provider Status Onset: Ulcerative colitis Active Onset: Tachycardia Active Onset: 04/11/2016 Regular astigmatism Yesica Sánchez O.D. Active Onset: 04/11/2016 Presbyopia Yesica Sánchez O.D. Active Onset: Cardiac pacemaker procedure Active Onset: Atrial fibrillation Active Onset: 04/28/2018 Hypermetropia Yesica Sánchez O.D. 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 Ventolin HFA Active Aerosol 108(90Base) Inhale Two Unknown 000 mcg/Act Puffs By Mouth Every 6 Hours as Needed For Wheezing Metoprolol Active Tablets ER 100mg McClintic, Succinate ER 000 24HR Raffi Haywood Magnesium Active Tablets 400(241.3Mg Take One Unknown Oxide 000 ) mg Tablet By Mouth Every Day Losartan Active Tablets 50mg Unknown Potassium 000 Results Description No Information Procedures Date CPT Code Description Status 04/11/2016 68813 Determination Of Refractive State Completed 04/11/2016 72162 New Patient Comprehensive Exam Completed Plan of Care 04/28/2018 - Yesica Sánchez O.D.H52.223 Regular astigmatism, bilateralComments: Astigmatism is a common vision condition that happens when a person's cornea is not symmetrical. Dr. Sánchez has given you a prescription to correct for this.Follow up:2 years You can expect to have your eyes dilated at your next visit. If Dr. Sánchez orders any additional testing, it may require extra time. We recommend that you bring sunglasses, as dilation drops often make you light sensitive until they wear off. We always recommend you bring someone to drive Qgive if you are uncomfortable driving with your eyes dilated. If you have any questions before your next visit, feel free to call our office at .H52.4 PresbyopiaComments:Smoking can increase the risk of developing or worsening any eye related disease, as well as affect your overall health. If you are a smoker, we strongly recommend that you quit.If you are not a smoker, we strongly recommend that you do not start. You have presbyopia. This is when the lens in your eye loses the ability to change focus, and happens as we age. A pair of reading glasses will help you see up close.H52.03 Hypermetropia, bilateralComments:You have Hyperopia, or far sightedness, I have given you a prescription for glasses.
[2018-05-15 18:49] LABS: ABS Basophils 0.1 10^3/ul (0-0.2); ABS Eosinophils 0.3 10^3/ul (0-0.6); ABS Lymphocytes 0.9 10^3/ul (1.0-4.8); ABS Monocytes 0.8 10^3/ul (0-0.8); ABS Neutrophils 5.5 10^3/ul (1.5-7.7); ABS Nucleated RBC 0 10^3/ul; Eosinophil % 3.9 % (0-6); Hematocrit 41 % (42-52); Hemoglobin 14.5 g/dl (14.0-18.0); Lymphocyte % 11.5 % (25-47); Mean Corpuscular HGB Conc 35 g/dl (31-36); Mean Corpuscular Hemoglobin 34 pg (27-31); Mean Corpuscular Volume 95 fL (80-94); Mean Platelet Volume 7.6 um3 (7.4-10.4); Nucleated Red Blood Cells % 0; Platelet Count 186 10^3/ul (150-450); Red Blood Count 4.34 10^6/ul (4.00-5.40); Red Cell Distribution Width 15 % (10.5-15); White Blood Count 7.6 10^3/ul (3.5-10.8)
[2018-05-15 18:58] LABS: INR 1.18 (0.77-1.02)
[2018-05-15 19:10] LABS: EGFR Non-African American 94.2 (>60)
[2018-05-15] MEDS ORDERED: Magnesium Oxide TAB* 400 MG PO ONE (20:05)
[2018-05-15] MEDS ORDERED: predniSONE TAB* 20 MG PO ONE (20:06)
[2018-05-15 20:41] VITALS: BP 132/95
--- NOTE | 2018-05-16 10:39 | RAD ---
INDICATION: Difficulty breathing COMPARISON: Most recent comparison chest x-ray is dated March 21, 2018 TECHNIQUE: Single AP portable view of the chest was obtained. FINDINGS: Image quality is compromised due to the relative inferiority of a portable chest x-ray. Again seen is a left upper chest cardiac pacemaker with 2 leads overlying the heart. The heart and mediastinum exhibit normal size and contour. The lungs are grossly clear. There is no evidence of a large pleural effusion. Visualized bones are normal for the patient's age. IMPRESSION: No radiographic evidence for acute cardiopulmonary abnormality on this portable chest x-ray. R1
== END 2018-05-15 20:39 | disposition home or self-care (01) ==
LOC: ED 17:22
DX: J44.1 Chronic obstructive pulmonary disease with (acute) exacerbation (principal); Z87.891 Personal history of nicotine dependence; Z88.3 Allergy status to other anti-infective agents
CPT/HCPCS: 36415; 71045; 80053; 82553; 83605; 83690; 83735; 83880; 84443; 84484; 85025; 85379; 85610; 85730; 86140; 87040; 93005; 96361; 96374; 99283; A9270-GY; J2930; J7512

== ENCOUNTER 2018-05-30 18:22 | Emergency (ER) | payer OTHER ==
[2018-05-30] MEDS ORDERED: methylPREDNISolone 125 MG* 2 ML VIAL ONE (18:29)
[2018-05-30] MEDS ORDERED: Azithromycin IV(*) 500 MG in NS 0.9% 250 ML* 250 ML IVPB ONE (18:31)
[2018-05-30] MEDS ORDERED: Albuterol/Ipratropium NEB.SOL* Albuterol 2.5 MG/Ipratropium 0.5 MG 3 ML INH ONE ×2 (18:31→19:54)
[2018-05-30] MEDS ORDERED: cefTRIAXone(*) 1 GM in NS 0.9% 50 ML* 50 ML IVPB ONE (18:31)
[2018-05-30] MEDS ORDERED: methylPREDNISolone 125 MG* 2 ML VIAL IV ONE (18:31)
--- NOTE | 2018-05-30 18:35 | ED ---
Respiratory - HPI Summary HPI Summary: Pt is a 57 year old male presenting to the ED with a chief complaint of shortness of breath onset yesterday. The pt denies fevers and chills. The pt reports burning in the chest, wheezing, and coughing up clear mucous. - History of Current Complaint Chief Complaint: EDRespiratoryDistress Stated Complaint: SOB Time Seen by Provider: 05/30/18 18:29 Hx Obtained From: Patient Onset/Duration: Gradual Onset, Lasting Days, Still Present Initial Severity: Mild Current Severity: None Pain Intensity: 0 Character: Wheezing, Cough (Productive) Sputum Amount: Small Sputum Color: Clear Aggravating Factor(s): Nothing - Allergy/Home Medications Allergies/Adverse Reactions: Allergies Allergy/AdvReac Type Severity Reaction Status Date / Time ciprofloxacin Allergy Itching Verified 05/30/18 18:27 PMH/Surg Hx/FS Hx/Imm Hx Previously Healthy: No Endocrine/Hematology History: Denies: Hx Anticoagulant Therapy, Hx Diabetes, Hx Systemic Lupus Erythematosus, Hx Thyroid Disease Cardiovascular History: Reports: Hx Atrial Fibrillation - no anticoagulants used currently, Hx Hypertension, Other Cardiovascular Problems/Disorders - A FIB Denies: Hx Congestive Heart Failure, Hx Deep Vein Thrombosis, Hx Myocardial Infarction, Hx Pacemaker/ICD Respiratory History: Reports: Hx Asthma, Hx Chronic Obstructive Pulmonary Disease (COPD), Other Respiratory Problems/Disorders - PNA Denies: Hx Lung Cancer, Hx Pneumonia, Hx Pulmonary Embolism GI History: Reports: Hx Gastrointestinal Bleed, Hx Obstructive Bowel, Hx Ileostomy - colostomy 2012, Other GI Disorders - colostomy, ulcerative colitis Denies: Hx Gall Bladder Disease, Hx Ulcer, Hx Urosepsis History: Denies: Hx Kidney Stones, Hx Renal Disease Musculoskeletal History: Reports: Hx Orthopedic Injury - surgeries in both knees Denies: Hx Arthritis, Hx Rheumatoid Arthritis, Hx Osteoporosis Sensory History: Reports: Hx Contacts or Glasses Denies: Hx Hearing Aid, Other Sensory Impairments Opthamlomology History: Reports: Hx Contacts or Glasses Denies: Other Sensory Impairments Neurological History: Denies: Hx Dementia, Hx Migraine, Hx Seizures, Hx Transient Ischemic Attacks (TIA) Psychiatric History: Denies: Hx Anxiety, Hx Depression, Hx Schizophrenia, Hx Bipolar Disorder - Cancer History Hx Chemotherapy: No - Surgical History Surgery Procedure, Year, and Place: COLECTOMY FOR ULCERATIVE COLITIS AT [facility] - has ostomy now 12/2012; bilat knees for cartilage. Tonsils Hx Anesthesia Reactions: No - Immunization History Date of Influenza Vaccine: 06/07/16 Infectious Disease History: No Infectious Disease History: Reports: Hx Hepatitis - hep c Denies: Hx Clostridium Difficile, Hx Human Immunodeficiency Virus (HIV), Hx of Known/Suspected MRSA, Hx Shingles, Hx Tuberculosis, Hx Known/Suspected VRE, Hx Known/Suspected VRSA, History Other Infectious Disease, Traveled Outside the [place] in Last 30 Days - Family History Known Family History: Positive: Hypertension, Respiratory Disease, Other - adopted - Social History Alcohol Use: Occasionally Alcohol Amount: was daily Hx Substance Use: No Substance Use Type: Reports: None Hx Tobacco Use: Yes Smoking Status (MU): Former Smoker Type: Cigarettes Amount Used/How Often: 1/2 ppd Length of Time of Smoking/Using Tobacco: 40 years Have You Smoked in the Last Year: Yes Review of Systems Negative: Fever, Chills Positive: Chest Pain Positive: Shortness Of Breath, Cough, Other - wheezing All Other Systems Reviewed And Are Negative: Yes Physical Exam - Summary Physical Exam Summary: General: well-appearing, no pain distress Skin: warm, color reflects adequate perfusion, dry Head: normal Eyes: EOMI, WALLACE ENT: normal Neck: supple, nontender Respiratory: breath sounds present, poor air movement, mild-moderate respiratory distress. Cardiovascular: RRR Abdomen: soft, nontender Bowel: present Musculoskeletal: normal, strength/ROM intact Neurological: sensory/motor intact, A&O x3 Psychological: affect/mood appropriate Triage Information Reviewed: Yes Vital Signs On Initial Exam: Initial Vitals Temp Pulse Resp BP Pulse Ox 98.8 F 80 32 123/77 93 05/30/18 18:25 05/30/18 18:25 05/30/18 18:25 05/30/18 18:25 05/30/18 18:25 Vital Signs Reviewed: Yes Diagnostics - Vital Signs Vital Signs Temp Pulse Resp BP Pulse Ox 05/30/18 18:29 80 25 96 05/30/18 18:27 32 05/30/18 18:25 98.8 F 80 32 123/77 93 - Laboratory Result Diagrams: 05/30/18 19:01 05/30/18 19:01 Lab Statement: Any lab studies that have been ordered have been reviewed, and results considered in the medical decision making process. - Radiology Chest X-Ray Xray Interpretation: Positive (See Comments) - R sided infiltrate, similar to the 05/15/18 CXR. Radiology Interpretation Completed By: ED Physician - Radiologist has not yet reviewed this report. - EKG 1835 Cardiac Rate: NL - 76bpm ST Segment: Normal Ectopy: None Disposition - Course Course Of Treatment: BREATHING IMPROVED IN ED. O2 SAT ON RA DROPS TO 83% WITH AMBULATION. THE PATIENT HAS O2 AT HOME. O2 SAT 95% ON RA AT REST. I DISCUSSED ADMIT VERSES DISCHARGE HOME. THE PATIENT PREFERS GOING HOME. F/U PMD; RETURN TO ED IF WORSE. - Diagnoses Provider Diagnoses: COPD exacerbation Discharge - Sign-Out/Discharge Documenting (check all that apply): Patient Departure - Discharge Plan Condition: Stable Disposition: HOME Prescriptions: Azithromycin 250 mg PO DAILY #4 tablet predniSONE TAB* [Deltasone 20 MG TAB*] 40 mg PO DAILY #8 tab Patient Education Materials: COPD (Chronic Obstructive Pulmonary Disease) (ED) Referrals: Allyn Heredia MD [Primary Care Provider] - Additional Instructions: FOLLOW UP WITH YOUR DOCTOR. RETURN TO THE EMERGENCY DEPARTMENT FOR ANY WORSENING OF YOUR CONDITION OR QUESTIONS OR CONCERNS. - Billing Disposition and Condition Condition: STABLE Disposition: Home - Attestation Statements Document Initiated by Scribe: Yes Documenting Scribe: Torri Huntley Provider For Whom Ej is Documenting (Include Credential): Hair Gordon MD. Scribe Attestation: ITorri, scribed for Hair Gordon MD. on 05/30/18 at 2113. Scribe Documentation Reviewed: Yes Provider Attestation: The documentation as recorded by the linnetteibTorri vargas accurately reflects the service I personally performed and the decisions made by me, Hair Gordon MD.
[2018-05-30 19:17] LABS: ABS Basophils 0.1 10^3/ul (0-0.2); ABS Eosinophils 0.3 10^3/ul (0-0.6); ABS Lymphocytes 1.2 10^3/ul (1.0-4.8); ABS Monocytes 1.3 10^3/ul (0-0.8); ABS Neutrophils 8.4 10^3/ul (1.5-7.7); ABS Nucleated RBC 0 10^3/ul; Hematocrit 46 % (42-52); Hemoglobin 15.4 g/dl (14.0-18.0); Lymphocyte % 10.6 % (25-47); Mean Corpuscular HGB Conc 33 g/dl (31-36); Mean Corpuscular Hemoglobin 33 pg (27-31); Mean Corpuscular Volume 98 fL (80-94); Nucleated Red Blood Cells % 0; Platelet Count 195 10^3/ul (150-450); Red Cell Distribution Width 15 % (10.5-15); White Blood Count 11.3 10^3/ul (3.5-10.8)
[2018-05-30 19:28] LABS: INR 1.29 (0.77-1.02)
[2018-05-30 19:35] LABS: EGFR Non-African American 88.1 (>60)
[2018-05-30 21:10] VITALS: BP 118/82
--- NOTE | 2018-05-31 07:14 | RAD ---
INDICATION: Shortness of breath. COMPARISON: Comparison is made to prior study from May 15, 2018. TECHNIQUE: A portable view of the chest was obtained. FINDINGS: Cardiac and mediastinal contours appear to be within normal limits. There is a dual-chamber transvenous pacemaker present. The lungs are hyperinflated with bilateral emphysematous change. The lungs are clear. No pleural effusion is seen. IMPRESSION: FINDINGS CONSISTENT WITH COPD, NO EVIDENCE FOR ACUTE FINDING. R2
== END 2018-05-30 21:11 | disposition home or self-care (01) ==
LOC: ED 18:22
DX: J44.1 Chronic obstructive pulmonary disease with (acute) exacerbation (principal); R05 Cough; Z87.891 Personal history of nicotine dependence
CPT/HCPCS: 36415; 71045; 80053; 82550; 82553; 83605; 83690; 83735; 83880; 84484; 85025; 85379; 85610; 85730; 86140; 87040; 93005; 96374; 99284; A9270-GY; J0456; J0696; J2930

== ENCOUNTER 2018-07-20 20:23 | Inpatient (IN) | payer OTHER ==
--- NOTE | 2018-07-20 20:54 | RAD ---
EXAM: CT Head Without Intravenous Contrast CLINICAL HISTORY: 57 years old, male; Pain; Headache TECHNIQUE: Axial computed tomography images of the head/brain without intravenous contrast. All CT scans at this facility use at least one of these dose optimization techniques: automated exposure control; mA and/or kV adjustment per patient size (includes targeted exams where dose is matched to clinical indication); or iterative reconstruction. COMPARISON: No relevant prior studies available. FINDINGS: Brain: Scattered nonspecific hypodensities of the periventricular and deep subcortical white matter, most likely secondary to chronic small vessel ischemic change. No intracranial hemorrhage or extra-axial fluid collection. No evidence of mass effect or midline shift. Kelly-white matter differentiation is normal. Ventricles: Mild prominence of the ventricles and sulci, most likely attributed to parenchymal volume loss. Bones/joints: Unremarkable. No acute fracture. Soft tissues: Unremarkable. Sinuses: Unremarkable as visualized. No acute sinusitis. Mastoid air cells: Unremarkable as visualized. No mastoid effusion. IMPRESSION: No acute intracranial pathology. To contact [facility] with a general question: [facility] - [phone] For direct physician to physician contact: Physician Hotline - [phone] [facility] ([facility] Facility ID #[id number])
[2018-07-20 21:23] LABS: Hematocrit 45 % (42-52); Hemoglobin 15.2 g/dl (14.0-18.0); Mean Corpuscular HGB Conc 34 g/dl (31-36); Mean Corpuscular Hemoglobin 33 pg (27-31); Mean Corpuscular Volume 98 fL (80-94); Mean Platelet Volume 8.1 um3 (7.4-10.4); Platelet Count 190 10^3/ul (150-450); Red Blood Count 4.55 10^6/ul (4.00-5.40); Red Cell Distribution Width 14 % (10.5-15); White Blood Count 15.4 10^3/ul (3.5-10.8)
[2018-07-20] MEDS ORDERED: Albuterol/Ipratropium NEB.SOL* Albuterol 2.5 MG/Ipratropium 0.5 MG 3 ML INH ONE (21:33)
[2018-07-20] MEDS ORDERED: methylPREDNISolone 125 MG* 2 ML VIAL IV ONE (21:33)
[2018-07-20 21:39] LABS: EGFR Non-African American 67.6 (>60)
[2018-07-20 21:53] LABS: INR 1.17 (0.77-1.02)
[2018-07-20] MEDS ORDERED: NS 0.9% 1000 ML* 1,000 ML IV ONE (21:54)
--- NOTE | 2018-07-20 21:57 | ED ---
Syncope/Near Syncope - HPI Summary HPI Summary: A 57 year old male presents to the ED c/o syncope earlier today, 07/20/2018, when making dinner. He is not sure how long he was unconscious but believes it was for a short period of time. He states that when he stood up he felt lightheaded, his hand was shaking, and then he fell and became unconscious. When he became conscious he called his PCP who referred the pt to the ED. The pt admits to SOB but denies CP. The patient wears a colostomy bag, has a pacemaker and has a Hx of A-fib.and COPD. - History Of Current Complaint Chief Complaint: EDSyncope Time Seen by Provider: 07/20/18 21:19 Hx Obtained From: Patient Onset/Duration: Sudden Onset Context: Unwitnessed Activity At Onset: Other - standing up - Allergies/Home Medications Allergies/Adverse Reactions: Allergies Allergy/AdvReac Type Severity Reaction Status Date / Time ciprofloxacin Allergy Itching Verified 07/20/18 20:30 Home Medications: Home Medications Albuterol Sulfate [Ventolin Hfa] 2 inh INH QID PRN 07/20/18 [History Confirmed 07/20/18] Budesonide/Formote 80/4.5(NF) [Symbicort 80/4.5 (NF)] 1 inh INH DAILY 07/20/18 [ History Confirmed 07/20/18] Losartan Potassium [Cozaar] 50 mg PO DAILY 07/20/18 [History Confirmed 07/20/18] Magnesium Oxide [Mag-Oxide] 400 mg PO DAILY 07/20/18 [History Confirmed 07/20/18 ] Metoprolol Succinate XL TAB* 100 mg PO TID 07/20/18 [History Confirmed 07/20/18] Rivaroxaban TAB(*) [Xarelto 20 mg] 20 mg PO DAILY 07/20/18 [History Confirmed ] Umeclidinium Stella [Incruse Ellipta] 1 inh INH DAILY 07/20/18 [History Confirmed 07/20/18] PMH/Surg Hx/FS Hx/Imm Hx Endocrine/Hematology History: Denies: Hx Anticoagulant Therapy, Hx Diabetes, Hx Systemic Lupus Erythematosus, Hx Thyroid Disease Cardiovascular History: Reports: Hx Atrial Fibrillation - no anticoagulants used currently, Hx Hypertension, Other Cardiovascular Problems/Disorders - A FIB Denies: Hx Congestive Heart Failure, Hx Deep Vein Thrombosis, Hx Myocardial Infarction, Hx Pacemaker/ICD Respiratory History: Reports: Hx Asthma, Hx Chronic Obstructive Pulmonary Disease (COPD), Other Respiratory Problems/Disorders - PNA Denies: Hx Lung Cancer, Hx Pneumonia, Hx Pulmonary Embolism GI History: Reports: Hx Gastrointestinal Bleed, Hx Obstructive Bowel, Hx Ileostomy - colostomy 2012, Other GI Disorders - colostomy, ulcerative colitis Denies: Hx Gall Bladder Disease, Hx Ulcer, Hx Urosepsis History: Denies: Hx Kidney Stones, Hx Renal Disease Musculoskeletal History: Reports: Hx Orthopedic Injury - surgeries in both knees Denies: Hx Arthritis, Hx Rheumatoid Arthritis, Hx Osteoporosis Sensory History: Reports: Hx Contacts or Glasses Denies: Hx Hearing Aid, Other Sensory Impairments Opthamlomology History: Reports: Hx Contacts or Glasses Denies: Other Sensory Impairments Neurological History: Denies: Hx Dementia, Hx Migraine, Hx Seizures, Hx Transient Ischemic Attacks (TIA) Psychiatric History: Denies: Hx Anxiety, Hx Depression, Hx Schizophrenia, Hx Bipolar Disorder - Cancer History Hx Chemotherapy: No - Surgical History Surgery Procedure, Year, and Place: COLECTOMY FOR ULCERATIVE COLITIS AT [facility] - has ostomy now 12/2012; bilat knees for cartilage. Tonsils Hx Anesthesia Reactions: No - Immunization History Date of Influenza Vaccine: 06/07/16 Infectious Disease History: No Infectious Disease History: Reports: Hx Hepatitis - hep c Denies: Hx Clostridium Difficile, Hx Human Immunodeficiency Virus (HIV), Hx of Known/Suspected MRSA, Hx Shingles, Hx Tuberculosis, Hx Known/Suspected VRE, Hx Known/Suspected VRSA, History Other Infectious Disease, Traveled Outside the [place] in Last 30 Days - Family History Known Family History: Positive: Hypertension, Respiratory Disease, Other - adopted - Social History Alcohol Use: Occasionally Alcohol Amount: was daily Hx Substance Use: No Substance Use Type: Reports: None Hx Tobacco Use: Yes Smoking Status (MU): Former Smoker Type: Cigarettes Amount Used/How Often: 1/2 ppd Length of Time of Smoking/Using Tobacco: 40 years Have You Smoked in the Last Year: Yes Review of Systems Negative: Fever Negative: Chest Pain Positive: Shortness Of Breath Neurological: Other - Positive: lightheaded, shakiness Positive: Syncope All Other Systems Reviewed And Are Negative: Yes Physical Exam - Summary Physical Exam Summary: Appearance: Well appearing, no pain distress Skin: warm, dry, reflects adequate perfusion Head/face: normal Eyes: EOMI, WALLACE ENT: normal Neck: supple, non-tender Respiratory: bilateral wheezing Cardiovascular: RRR, pulses symmetrical Abdomen: non-tender, soft Bowel: present Musculoskeletal: normal, strength/ROM intact Neuro: normal, sensory motor intact, A&Ox3 GCS:15 Triage Information Reviewed: Yes Vital Signs On Initial Exam: Initial Vitals Temp Pulse Resp BP Pulse Ox 97.5 F 98 20 116/72 96 07/20/18 20:27 07/20/18 20:27 07/20/18 20:27 07/20/18 20:27 07/20/18 20:27 Vital Signs Reviewed: Yes Diagnostics - Vital Signs Vital Signs Temp Pulse Resp BP Pulse Ox 07/20/18 20:27 97.5 F 98 20 116/72 96 - Laboratory Lab Results: Lab Results 07/20/18 07/20/18 07/20/18 Range/Units 21:13 21:13 21:13 WBC 15.4 H (3.5-10.8) 10^3/ul RBC 4.55 (4.00-5.40) 10^6/ul Hgb 15.2 (14.0-18.0) g/dl Hct 45 (42-52) % MCV 98 H (80-94) fL MCH 33 H (27-31) pg MCHC 34 (31-36) g/dl RDW 14 (10.5-15) % Plt Count 190 (150-450) 10^3/ul MPV 8.1 (7.4-10.4) um3 Neut % (Auto) Pending Lymph % (Auto) Pending [place] % (Auto) Pending Eos % (Auto) Pending Baso % (Auto) Pending Absolute Neuts (auto) Pending Absolute Lymphs (auto) Pending Absolute Monos (auto) Pending Absolute Eos (auto) Pending Absolute Basos (auto) Pending Absolute Nucleated RBC Pending Nucleated RBC % Pending INR (Anticoag Therapy) 1.17 H (0.77-1.02) APTT 33.1 (26.0-36.3) seconds Sodium 135 (135-145) mmol/L Potassium 3.6 (3.5-5.0) mmol/L Chloride 100 L (101-111) mmol/L Carbon Dioxide 26 (22-32) mmol/L Anion Gap 9 (2-11) mmol/L BUN 14 (6-24) mg/dL Creatinine 1.12 (0.67-1.17) mg/dL Est GFR ( Amer) 81.8 (>60) Est GFR (Non-Af Amer) 67.6 (>60) BUN/Creatinine Ratio 12.5 (8-20) Glucose 97 (70-100) mg/dL Calcium 8.7 (8.6-10.3) mg/dL Total Bilirubin 0.70 (0.2-1.0) mg/dL AST 72 H (13-39) U/L ALT 70 H (7-52) U/L Alkaline Phosphatase 80 (34-104) U/L Troponin I 0.00 (<0.04) ng/mL Total Protein 6.9 (6.4-8.9) g/dL Albumin 4.5 (3.2-5.2) g/dL Globulin 2.4 (2-4) g/dL Albumin/Globulin Ratio 1.9 (1-3) Result Diagrams: 07/21/18 08:32 07/21/18 09:39 Lab Statement: Any lab studies that have been ordered have been reviewed, and results considered in the medical decision making process. - Radiology CXR Radiology Interpretation Completed By: ED Physician - increased interstital markings. Pending official radiology report - CT Brain CT Interpretation Completed By: Radiologist - No acute intracranial pathology. The ED physician has reviewed this report. Course/Dx Course Of Treatment: A 57 year old male presents to the ED c/o syncope earlier today, 07/20/2018, when making dinner. He is not sure how long he was unconscious but believes it was for a short period of time. His PE was normal. His brain CT was negative and his CXR showed increased interstitial markings. Dx: syncope, hypotension, exacerbation of COPD. The patient will be admitted to Dr. Kruger The pt is agreeable to this plan. - Diagnoses Differential Diagnosis/HQI/PQRI: Positive: Dysrhythmia, Hypovolemia, Myocardial Infarction, Vasovagal Episode, Other - exc copd Provider Diagnoses: Syncope, Hypotension, COPD exacerbation - Physician Notifications Discussed Care of Patient With: Eliza Kruger Time Discussed With Above Provider: 22:45 Instructed by Provider To: Admit As Inpatient - Critical Care Time Critical Care Time: 30-74 min Discharge - Sign-Out/Discharge Documenting (check all that apply): Patient Departure - Admit - Discharge Plan Condition: Fair Disposition: ADMITTED TO [facility] - Billing Disposition and Condition Condition: FAIR Disposition: Admitted to [facility] - Attestation Statements Document Initiated by Scribe: Yes Documenting Scribe: Esdras Castro Provider For Whom Ej is Documenting (Include Credential): Charles Lo MD Scribe Attestation: Esdras Rosenberg, scribed for Charles Lo MD on 07/22/18 at 0012. Scribe Documentation Reviewed: Yes Provider Attestation: The documentation as recorded by the Esdras rangel accurately reflects the service I personally performed and the decisions made by , Charles Lo MD
[2018-07-20 22:01] LABS: ABS Basophils 0.1 10^3/ul (0-0.2); ABS Eosinophils 0.4 10^3/ul (0-0.6); ABS Lymphocytes 1.6 10^3/ul (1.0-4.8); ABS Monocytes 1.9 10^3/ul (0-0.8); ABS Neutrophils 11.5 10^3/ul (1.5-7.7); ABS Nucleated RBC 0 10^3/ul; Eosinophil % 2.3 % (0-6); Lymphocyte % 10.7 % (25-47); Nucleated Red Blood Cells % 0
[2018-07-20] MEDS ORDERED: Diltiazem IV* 5 MG/ML 5 ML VIAL (for loading dose/IV Push) (25 MG) IV SLOW PU ONE (22:32)
[2018-07-20] MEDS ORDERED: Diltiazem IV* 5 MG/ML 5 ML VIAL (for loading dose/IV Push) (25 MG) ONE (22:33)
[2018-07-20] MEDS ORDERED: Azithromycin TAB* 250 MG PO ONE (23:16)
[2018-07-20] MEDS ORDERED: methylPREDNISolone SOD 40 MG* 1 ML VIAL IV SCH (23:45)
[2018-07-21 00:21] LABS: Urine Appearance Clear; Urine Blood Negative (Negative); Urine Color Straw; Urine Ketones Negative (Negative); Urine Protein Negative (Negative); Urine Specific Gravity 1.003 (1.010-1.030); Urine Urobilinogen Negative (Negative)
[2018-07-21] MEDS: Albuterol 2.5 MG/3 ML NEB.SOL* (0.083%) INH SCH ×8 (00:21→23:28)
--- NOTE | 2018-07-21 01:33 | HP ---
CC: Dr. Heredia; Dr. Kennedy * HISTORY AND PHYSICAL: DATE OF ADMISSION: 07/20/18 PRIMARY CARE PROVIDER: Dr. Heredia. DISEASE AND INSECT CONTROL BOSS: Dr. Kennedy. CHIEF COMPLAINT: Loss of consciousness. HISTORY OF PRESENT ILLNESS: Mr. eYn is a 57-year-old male, who has a history of COPD, atrial fibrillation with sick sinus syndrome, status post pacemaker insertion, ulcerative colitis, status post total colectomy with ileostomy who presents to the emergency room after sustaining a syncopal episode at home. The patient states that over the last 14 days or so, he has noted that it has been somewhat harder for him to breathe. He states that starting approximately 2 weeks ago, he was started on CPAP machine for obstructive sleep apnea. He states that when he wakes up in the morning, he feels like he is struggling more to breathe after utilizing the CPAP than when he did not utilize the CPAP. He states that he has also had cough and bringing up thick clear mucous over the last 14 days. He has found it harder to minimal amounts of work that he had been able to do previously. He denies any fevers or chills. He denies any sick contacts. He states that he was coughing prior to his syncopal episode. He states that he got up to go out to kitchen to make dinner. He states that he suddenly felt shaky like his vision went blurry and lightheaded. The next thing he remembers is waking up on the floor. He fell on carpet. He did hit the left anterior aspect of this head on the floor. He lives alone and nobody was able to witness the event. Currently, the patient states that his breathing does feel somewhat better; however, it is still quite labored. It is much different than previous. PAST MEDICAL HISTORY: 1. AFib and sick sinus syndrome, status post pacemaker insertion and AFib ablation. 2. COPD. 3. Ulcerative colitis. 4. Hepatitis C - treated approximately 3 years ago. 5. Hypertension. PAST SURGICAL HISTORY: 1. Pacemaker insertion. 2. Total colectomy with ileostomy. 3. Bilateral knee arthroscopic surgery. 4. Tonsillectomy. MEDICATIONS: 1. Albuterol 2 puffs inhaled 4 times daily p.r.n. shortness of breath. 2. Incruse Ellipta 1 puff inhaled daily. 3. Symbicort 80/4.5 one puff inhaled daily. 4. Xarelto 20 mg p.o. daily. 5. Magnesium oxide 400 mg p.o. daily. 6. Metoprolol XL 100 mg p.o. t.i.d. 7. Losartan 50 mg p.o. daily. ALLERGIES: CIPRO. FAMILY HISTORY: Mom of an MVA. Dad in [place] in the war. SOCIAL HISTORY: The patient is a former smoker. He quit approximately 2 years ago. He smoked approximately 1 pack per day for 40 years. He drinks 2 alcoholic beverages daily. He is on disability, but works minimal hours weekly making [employer]. He is not . He has no children. His friend, Julia, is his healthcare proxy. REVIEW OF SYSTEMS: A complete 11-system review of systems is obtained. Pertinent positives and negatives are as per HPI and in addition, the patient states that he has felt slightly more puffy than normal. He has also had intermittent nausea and dry hives. He states that his abdomen feels bloated. He is due to have a GI evaluation later this winter. He also admits to daily rectal bleeding from the minimal amount of rectum that was left from his colectomy. PHYSICAL EXAMINATION GENERAL: The patient is a well-developed middle-aged male, seen sitting up on the edge of the stretcher, tachypneic with pursed lip breathing, but in no acute distress. VITAL SIGNS: Blood pressure 95/55, pulse 90, respirations 17, temp 97.5, O2 sat 98% on room air. HEENT: Pupils are equal and round. Extraocular muscles are intact. Oropharynx is clear. Oral mucosa is moist. There is no submandibular, cervical , or supraclavicular adenopathy. Thyroid is not enlarged. No thyroid nodules are noted. PULMONARY: Breath sounds are rhonchorous. There are diffuse wheezes. Breath sounds generally are diminished throughout. CARDIAC: Normal S1, S2. Heart rate is irregular, but tachycardic. He appears to be in sinus tachycardia on telemetry. There is no lower extremity edema. ABDOMEN: Bowel sounds are present. Abdomen is soft, nontender, and nondistended. There is an ileostomy in the right lower quadrant. MUSCULOSKELETAL: There is no cyanosis or clubbing of the digits. There is full active range of motion of all 4 extremities. NEUROLOGIC: Cranial II through XII are grossly intact. Sensation is intact to light touch throughout. Strength is 5/5 and symmetric both in the upper and lower extremities bilaterally. SKIN: Warm and dry. There are no rashes. There are numerous tattoos on the patient's torso and arms. PSYCH: The patient is alert. He is oriented x3. Affect appears appropriate. DIAGNOSTIC STUDIES/LAB DATA: WBC 15.4, hemoglobin 15.2, hematocrit 45, platelets 190. INR 1.17. Sodium 135, potassium 3.6, chloride 100, CO2 26, BUN 14, creatinine 1.12, glucose 97, calcium 8.7. Bilirubin 0.7, AST 72, ALT 70, alk phos 80. Troponin 0. Albumin 4.5. EKG shows normal sinus rhythm with diffuse ST-T depressions in the inferolateral leads, which is new compared to EKG obtained in May 2018. Chest x-ray to my review, there are COPD related changes with hyperinflation of the lungs. I question perhaps some focal infiltrate at the right base, though this appears generally stable from left chest x-ray in May 2018. CT brain, no acute intracranial pathology. ASSESSMENT AND PLAN: Mr. Yen is a 57-year-old male who has a history of atrial fibrillation and sick sinus syndrome, status post pacer and atrial fibrillation ablation, on high dose metoprolol, chronic obstructive pulmonary disease with recent initiation of CPAP for obstructive sleep apnea who presents to the emergency room with complaints of loss of consciousness episode. 1. Syncope. The differential for Ozzie's syncopal episode will include vasovagal or posttussive syncope versus arrhythmia versus orthostatic hypotension. The patient does admit to coughing just prior to passing out. At this point, however, posttussive syncope will need to be a diagnosis of exclusion. In terms of orthostatic hypotension, the patient is on high dose metoprolol. He has, however, been on this dose for quite sometime. His blood pressure in the emergency room did dip to a low of 74/57. He received 1 L of fluid in the ER. His blood pressure has subsequently improved. He does not complain of any orthostatic symptoms at this point. Also of concern would be cardiac arrhythmia. The patient while in the ER developed several seconds worth of very rapid atrial fibrillation in the 170 to 180 range. The patient was going to receive diltiazem IV; however, by the time the nurse arrived to the room with the medication, he had converted back to sinus tachycardia. Pacemaker interrogation will be sought tomorrow as will transthoracic echocardiogram. I am going to continue the patient's metoprolol for now given he is bouncing in and out of atrial fibrillation. 2. Chronic obstructive pulmonary disease exacerbation. The patient reports approximately 2 weeks worth of worsened shortness of breath and cough. He is using pursed lip breathing and appears to be in mild respiratory distress. He will be placed on standing nebs every 4 hours Solu-Medrol 40 mg IV q.8 hours and the patient will also be started on azithromycin 500 mg x1 in the ER followed by 250 mg daily given his probable chronic obstructive pulmonary disease exacerbation and elevated white blood cell count. 3. Atrial fibrillation. For the most part, the patient has been in sinus rhythm or sinus tachycardia while in the emergency room; however, he did have a burst of very rapid atrial fibrillation while in the ER. The patient will continue on his usual dose of metoprolol and Xarelto. As the patient continues to have fast or prolonged bursts of atrial fibrillation, Cardiology consultation could be requested. 4. Ulcerative colitis. The patient does report daily rectal bleeding. He is set to be evaluated by GI later this winter. His ileostomy is functioning appropriately. 5. Hypertension. The patient was hypotensive in the emergency room. I have put very strict hold parameter on his losartan dose. We will monitor his blood pressure overnight. 6. DVT prophylaxis: According to the Adult Thrombosis Prophylaxis Risk Factor Assessment Guide, the patient has a total risk factor score of 2 making him moderate risk. He is already on Xarelto and this will act as his DVT prophylaxis. 7. Code status is full. TIME SPENT: 65 minutes were spent admitting this patient. [id number]/[facility] #: [id number] ELIUD
[2018-07-21] MEDS: methylPREDNISolone SOD 40 MG* 1 ML VIAL IV SCH ×3 (06:12→22:37)
[2018-07-21] MEDS: Mometasone/Formoter 100/5 MDI INH SCH (07:04)
[2018-07-21] MEDS: Umeclidinium 62.5 MDI(NF) MDI INH SCH (07:10)
--- NOTE | 2018-07-21 08:08 | RAD ---
HISTORY: dizzy COMPARISONS: August 29, 2018 VIEWS: 4: Frontal dual-energy and lateral views of the chest. FINDINGS: CARDIOMEDIASTINAL SILHOUETTE: The cardiomediastinal silhouette is normal. ROGELIO: The rogelio are normal. PLEURA: The costophrenic angles are sharp. No pleural abnormalities are noted. LUNG PARENCHYMA: There is hyperinflation with flattening of the diaphragm and expansion of the AP diameter of the chest. There is biapical emphysematous change. ABDOMEN: The upper abdomen is clear. There is no subphrenic gas. BONES AND SOFT TISSUES: No bone or soft tissue abnormalities are noted. OTHER: A left-sided pacemaker is noted. IMPRESSION: EMPHYSEMA. R2
[2018-07-21 08:45] LABS: ABS Basophils 0 10^3/ul (0-0.2); ABS Eosinophils 0 10^3/ul (0-0.6); ABS Lymphocytes 0.3 10^3/ul (1.0-4.8); ABS Monocytes 0.3 10^3/ul (0-0.8); ABS Neutrophils 12.9 10^3/ul (1.5-7.7); ABS Nucleated RBC 0 10^3/ul; Eosinophil % 0.1 % (0-6); Hematocrit 41 % (42-52); Hemoglobin 13.8 g/dl (14.0-18.0); Lymphocyte % 2.2 % (25-47); Mean Corpuscular HGB Conc 34 g/dl (31-36); Mean Corpuscular Hemoglobin 34 pg (27-31); Mean Corpuscular Volume 99 fL (80-94); Mean Platelet Volume 8.2 um3 (7.4-10.4); Nucleated Red Blood Cells % 0.1; Platelet Count 157 10^3/ul (150-450); Red Blood Count 4.08 10^6/ul (4.00-5.40); Red Cell Distribution Width 14 % (10.5-15); White Blood Count 13.6 10^3/ul (3.5-10.8)
[2018-07-21] MEDS ORDERED: NON FORMULARY MED* (Losartan Potassium [Cozaar] 50 MG) PO SCH (09:00)
[2018-07-21] MEDS ORDERED: Magnesium Oxide TAB* 400 MG PO SCH (09:00)
[2018-07-21 09:09] LABS: EGFR Non-African American 63.6 (>60)
[2018-07-21] MEDS ORDERED: Metoprolol Tartrate IV* 1 MG/ML 5 ML VIAL ONE (09:31)
[2018-07-21] MEDS: Losartan TAB* 25 MG PO SCH (09:48)
[2018-07-21] MEDS: Benzonatate CAP* 100 MG PO PRN ×2 (09:48→22:53)
[2018-07-21] MEDS: Metoprolol Succinate XL TAB* 50 MG PO SCH ×2 (09:48→20:49)
[2018-07-21] MEDS: Rivaroxaban TAB(*) 20 MG TAB PO SCH (09:48)
[2018-07-21] MEDS: Azithromycin TAB* 250 MG PO SCH (09:50)
[2018-07-21] MEDS ORDERED: Diltiazem IV VIAL* 125 MG in NS 0.9% 100 ML* 100 ML IV SCH (10:00)
[2018-07-21] MEDS: Metoprolol Tartrate IV* 1 MG/ML 5 ML VIAL IV SCH ×2 (10:01→10:56)
[2018-07-21 10:18] LABS: EGFR Non-African American 59.5 (>60)
[2018-07-21] MEDS ORDERED: Magnesium Sulf 4 GM/100 ML IV* 4,000 MG/100 ML BAG IVPB ONE (10:23)
--- NOTE | 2018-07-21 14:19 | PN ---
Subjective Date of Service: 07/21/18 Interval History: Patient was examined this AM due to Afib with RVR up to 200. Patient during that time had worsened SOB and diaphoresis without chest pain. Patient states that his episodes of Afib are usually asymptomatic. Patient felt somewhat dizzy on sitting up. Patient had persistent complaints of cough and SOB. Patient denies F/C, N/V, abdominal pain, recent illness, diarrhea. Patient has a pacemaker but is unsure of the indication for it. Patient states that his most recent pacemaker interrogation showed afib 7% of the time. Patient had lightheadedness and changes in vision without palpitations before his syncope. Family History: Unchanged from Admission Social History: Unchanged from Admission Past Medical History: Unchanged from Admission Objective Active Medications: Albuterol (Ventolin 2.5 Mg/3 Ml Neb.Leona*) 2.5 mg INH [id number] Last Admin: 07/21/18 10:46 Dose: 2.5 mg Azithromycin (Zithromax Tab*) 250 mg PO DAILY [facility] Last Admin: 07/21/18 09:50 Dose: 250 mg Benzonatate (Tessalon Cap*) 200 mg PO TID PRN PRN Reason: cough Last Admin: 07/21/18 09:48 Dose: 200 mg Losartan Potassium (Cozaar Tab*) 50 mg PO DAILY [facility] Last Admin: 07/21/18 09:48 Dose: 50 mg Magnesium Oxide (Magox 400 Tab*) 400 mg PO DAILY [facility] Last Admin: 07/21/18 09:48 Dose: 400 mg Methylprednisolone Sodium Succinate (Solu-Medrol 40 Mg) 40 mg IV Q8H [facility] Stop: 07/21/18 23:59 Last Admin: 07/21/18 14:01 Dose: 40 mg Metoprolol Succinate (Toprol Xl Tab*) 150 mg PO BID [facility] Last Admin: 07/21/18 09:48 Dose: 150 mg Mometasone Furoate/Formoterol Fumar (Dulera 100/5 Mdi*) 1 puff INH DAILY [facility] Last Admin: 07/21/18 07:04 Dose: 1 puff Prednisone (Deltasone Tab*) 50 mg PO DAILY [facility] Rivaroxaban (Xarelto(*)) 20 mg PO DAILY [facility] Last Admin: 07/21/18 09:48 Dose: 20 mg Umeclidinium [place] (Incruse Ellipta Mdi (Nf)) 1 inh INH DAILY [facility] Last Admin: 07/21/18 07:10 Dose: Not Given Vital Signs - 8 hr 07/21/18 07/21/18 07/21/18 07:10 07:32 07:58 Temperature 97.6 F 97.6 F Pulse Rate 99 94 94 Respiratory 15 16 16 Rate Blood Pressure 111/70 111/70 (mmHg) O2 Sat by Pulse 92 96 96 Oximetry 07/21/18 07/21/18 07/21/18 09:30 10:54 11:30 Temperature 97.5 F Pulse Rate 73 79 85 Respiratory 22 18 20 Rate Blood Pressure 114/80 116/74 (mmHg) O2 Sat by Pulse 96 94 97 Oximetry Oxygen Devices in Use Now: None Appearance: Patient is a 57yo male who appears stated age and is sitting in the bed in NAD. Eyes: No Scleral Icterus, PERRLA Ears/Nose/Mouth/Throat: NL Teeth, Lips, Gums, Clear Oropharnyx, Mucous Membranes Moist Neck: NL Appearance and Movements; NL JVP, Trachea Midline Respiratory: Symmetrical Chest Expansion and Respiratory Effort, - - Slight expiratory wheezing. Cardiovascular: NL Sounds; No Murmurs; No JVD, RRR, No Edema Abdominal: NL Sounds; No Tenderness; No Distention, No Hepatosplenomegaly Lymphatic: No Cervical Adenopathy Extremities: No Edema Skin: No Rash or Ulcers, No Nodules or Sclerosis Neurological: Alert and Oriented x 3, NL Sensation, NL Muscle Strength and Tone , - - CN II-XII intact. Result Diagrams: 07/21/18 08:32 07/21/18 09:39 Additional Lab and Data: Lab Results Assess/Plan/Problems-Billing Assessment: Patient is a 57yo male with a PMH for AFib, SSS with pacemaker, COPD, and hepatitis C who is admitted for evaluation of syncope and is having intermittent episodes of Afib with RVR with rates up to the 200s. - Patient Problems (1) Atrial fibrillation Current Visit: No Status: Chronic Code(s): I48.91 - UNSPECIFIED ATRIAL FIBRILLATION SNOMED Code(s): 44711954 Comment: - 2 episodes of rapid Afib. Converted with doses of IV metoprolol - Is in Afib 9% of the time according to pacer interrogation. Has been having increasing number of Afib episodes in last couple weeks without overt symptoms. - Continue Xarelto and Metoprolol - Episode of Afib with RVR not able to be correlated with syncopal episode. - Cardiology consult pending for possibility of rhythm control vs rate control - Discussed the possible need for alcohol abstinence with patient due to Afib/ HFrEF and history of Hepatitis C with ongoing LFT elevation. - Monitor for signs of alcohol withdrawal. (2) HFrEF (heart failure with reduced ejection fraction) Current Visit: Yes Status: Acute Code(s): I50.20 - UNSPECIFIED SYSTOLIC ( CONGESTIVE) HEART FAILURE SNOMED Code(s): 909042127 Comment: - Recent Echo with EF 45% per records from [place] - No signs of exacerbation - Repeat echo - May be rate related due to frequent Afib. (3) COPD (chronic obstructive pulmonary disease) Current Visit: No Status: Acute Code(s): J44.9 - CHRONIC OBSTRUCTIVE PULMONARY DISEASE, UNSPECIFIED SNOMED Code(s): 50795608 Comment: - COPD exacerbation symptoms since starting CPAP. - Continue Steroids and begin to taper - Continue inhalers and antibiotics - Severe COPD per records, has been started on home O2 and CPAP. (4) Hepatitis C Current Visit: No Status: Acute Comment: - Has been treated. With elevated LFTs - Unknown cause, possibly related to Alcohol abuse. (5) Hypertension Current Visit: No Status: Acute Code(s): I10 - ESSENTIAL (PRIMARY) HYPERTENSION SNOMED Code(s): 52149777 Comment: - Normotensive - Continue metoprolol and losartan (6) Hypomagnesemia Current Visit: No Status: Acute Code(s): E83.42 - HYPOMAGNESEMIA SNOMED Code(s): 914413250 Comment: - Low magnesium, replace IV and PO (7) Hx of ulcerative colitis Current Visit: No Status: Chronic Priority: Medium Code(s): Z87.19 - PERSONAL HISTORY OF OTHER DISEASES OF THE DIGESTIVE SYSTEM SNOMED Code(s): 651341693 Comment: - Complete colectomy, no signs of disease activity. (8) DVT prophylaxis Current Visit: No Status: Acute Onset Date: 12/26/14 Code(s): GMV0289 - SNOMED Code(s): 535404117 Comment: - Xarelto (9) Full code status Current Visit: No Status: Acute Onset Date: 12/26/14 Code(s): Z78.9 - OTHER SPECIFIED HEALTH STATUS SNOMED Code(s): 111691816 Comment:
--- NOTE | 2018-07-21 16:30 | ECHO ---
Patient: REMA MARVIN [facility] Rec#: [id number] : 1960 Date: 07/21/2018 Age: 57y Height: 168 cm / 66.1 in Weight: 65 kg / 143.3 lbs Sex: M BSA: 1.74 Room#: 3 Admit Date#: 07/21/2018 Type: Inpatient Referring: Eliza Kruger DO Reading: Xena Spencer MD Leveler Helper: Felicitas Soto RDCS,RDMS CC: Allyn Heredia MD Transthoracic Echocardiogram Indication: Syncope BP: 112/70 HR: 76 Rhythm: NSR Findings History: AFIB, ablation, HTN, COPD, pacemaker. Technical Comments: The study quality is fair. The study is technically limited due to poor parasternal windows. Left Ventricle: The left ventricular chamber size is normal. Mild concentric left ventricular hypertrophy is observed. Global left ventricular wall motion and contractility are within normal limits. The estimated ejection fraction is 55-60%. Normal left ventricular diastolic filling is observed. Left Atrium: The left atrial chamber size is normal. Right Ventricle: The right ventricular chamber size and systolic function are within normal limits. Right Atrium: The right atrial cavity size is normal. Aortic Valve: The aortic valve structure is not well visualized. There is no evidence of aortic valve thickening. There is no evidence of aortic regurgitation. There is no evidence of aortic stenosis. Mitral Valve: There is mitral annular calcification. The mitral valve leaflets are mildly thickened. There is no evidence of mitral regurgitation. There is no evidence of mitral stenosis. Tricuspid Valve: The tricuspid valve leaflets are normal. There is trace tricuspid regurgitation. No pulmonary hypertension is noted. Pulmonic Valve: There is no evidence of pulmonic valve thickening. There is no evidence of pulmonic regurgitation. Pericardium: There is no significant pericardial effusion. Aorta: The ascending aorta is not well visualized. There is no dilatation of the aortic arch. The aortic root is normal in size. Pulmonary Artery: The main pulmonary artery is not well visualized. Venous: The inferior vena cava appears normal in size. There is an approximate 50% respiratory change in the inferior vena cava dimension. Summary: There are changes noted when compared to the previous study done on 11/20/2017, LV EF is normal now instead of 20-25% then. MR and TR are much less now. Conclusions The left ventricular chamber size is normal. Mild concentric left ventricular hypertrophy is observed. The estimated ejection fraction is 55-60%. Normal left ventricular diastolic filling is observed. There is trace tricuspid regurgitation. There are changes noted when compared to the previous study done on 11/20/2017, LV EF is normal now instead of 20-25% then. MR and TR are much less now. Measurements Name Value Normal Range RVDdMajor (2D) 2.8 cm (2.2 - 4.4) RAd ISD 4CH 3.6 cm (3.4 - 4.9) RA (A4C)W 2.6 cm (2.9 - 4.6) IVSd (2D) 1.3 cm (0.6 - 1) LVPWd (2D) 1.3 cm (0.6 - 1) LVIDd (2D) 3.8 cm (3.6 - 5.4) LVIDs (2D) 3 cm - LV FS (2D) 21 % (25 - 45) Aortic Annulus 2 cm (1.4 - 2.6) Ao root diameter (2D) 2.9 cm (2.1 - 3.5) Aortic arch 3.1 cm (1.8 - 3.4) LA dimension (AP) 2D 3.6 cm (2.3 - 3.8) LAd ISD 4CH 4.1 cm (2.9 - 5.3) LA ISD 4CH W 3.1 cm (2.5 - 4.5) Name Value Normal Range LA ESV BP (A/L) index 17 ml/m2 - Name Value Normal Range MV E-wave Vmax 1 m/sec - MV deceleration time 140 msec - MV A-wave Vmax 0.5 m/sec - MV E:A ratio 2 ratio - LV septal e' Vmax 0.12 m/sec - LV lateral e' Vmax 0.11 m/sec - LV E:e' septal ratio 8 ratio - LV E:e' lateral ratio 9 ratio - Name Value Normal Range AV Vmax 1.3 m/sec - AV VTI 21 cm - AV peak gradient 7 mmHg - AV mean gradient 3 mmHg - LVOT Vmax 0.9 m/sec - LVOT VTI 18 cm - LVOT peak gradient 3.2 mmHg - LVOT mean gradient 2 mmHg - HAIM Vmax 0.5 m/sec - Name Value Normal Range TR Vmax 2.6 m/sec - TR peak gradient 27 mmHg - RAP 3 mmHg - RVSP 30 mmHg - IVC diameter 2.1 cm - Name Value Normal Range PV Vmax 0.8 m/sec - PV peak gradient 2.6 mmHg -
--- NOTE | 2018-07-22 01:49 | CONS ---
CC: Dr. Kennedy; Hospitalist Service; Dr. Spencer * CARDIOLOGY CONSULTATION NOTE: DATE OF CONSULT: 07/21/18 HISTORY OF PRESENT ILLNESS: I was asked by hospitalist service to see this 57- year- old male patient, who does have extensive cardiac history presented to the hospital with syncopal episode. He does have known history of atrial fibrillation, sick sinus syndrome, status post permanent pacemaker implantation back in October 2017, Dr. Chavez; history of ablation radiofrequency for his AFib, Dr. Dutta, [facility] in [place]; history of sleep apnea but he is not using his CPAP; history of extensive COPD; history of hepatitis C; ulcerative colitis; systemic arterial hypertension. The patient at some point was on amiodarone but he is not on it now for unclear reasons. He is maintained on Xarelto as an outpatient, beta reno, and LUZ inhibitor. Of note, his echo back in November 2017, his overall left ventricular systolic pressure was 20% to 25% with moderate mitral insufficiency and moderate tricuspid insufficiency. His echocardiogram, which was done today showed his left ventricular systolic function recovered with a normal EF of 55%. No significant valvular disease. He lives by himself. He drinks alcohol at least moderately significantly at least a couple of drinks of vodka on a daily basis. He used to smoke. He quit many years ago. He gives no chest pain. He does have shortness of breath, relates to his COPD. He has no nausea, no vomiting. No hematochezia, no skin rash, no abdominal pain, no syncope. No orthopnea. Although his syncopal episode from yesterday was the first time actually, according to the patient he gets no palpitation, sometimes he feels atrial fibrillation, sometimes he feels once a week for few minutes and he feels irregularity. He had no fever, no chills, no pneumonia, no bronchitis is appreciated. Cardiology consult was further requested because of atrial fibrillation. His review of all other systems essentially is negative. PAST MEDICAL HISTORY: Include COPD, atrial fibrillation, sick sinus syndrome, hepatitis C, ulcerative colitis, systemic arterial hypertension. PAST SURGICAL HISTORY: Includes pacemaker insertion, dual chamber, October 2017; total colectomy with ileostomy; bilateral knee arthroscopic surgery; tonsillectomy. MEDICATIONS: As an outpatient include: 1. Albuterol 2 puffs inhaled 4 times daily p.r.n. 2. Xarelto 20 mg once a day. 3. Magnesium 400 mg daily. 4. Metoprolol 100 mg 3 times a day t.i.d. 5. Losartan 50 mg daily. His medications as an inpatient include: 1. Ventolin inhaler. 2. Zithromax 250 mg daily. 3. He is on Cozaar 50 mg daily. 4. Magnesium 800 mg daily. 5. Methylprednisolone 40 mg IV q.8 hours. 6. Toprol-XL 150 mg twice a day. 7. Prednisone 50 mg daily. 8. Xarelto 20 mg daily. ALLERGIES: Allergic to CIPRO. FAMILY HISTORY: No family history of premature CAD. SOCIAL HISTORY: He used to smoke. He quit 2 years ago. He drinks alcohol 2, at least daily. He is on disability. He lives by himself. REVIEW OF SYSTEMS: His review of all other systems essentially is negative. PHYSICAL EXAM: He is awake, alert, and oriented. He is not in acute distress. He had an episode of rapid atrial fibrillation this morning and converted after beta- reno treatment IV 5 mg x2. He is in sinus rhythm. His vitals showed the following: Blood pressure 126/80; his pulse is 85, in sinus rhythm; temperature 97.5; respiratory rate 16. Head and Neck Exam: Normocephalic, atraumatic head. Ears, Nose, and Throat: Essential benign. Neck: Supple. JVP is not elevated. No carotid bruit. No masses in the neck are appreciated. Chest: Clear to auscultation. No rales, no wheeze, no added sounds appreciated. Heart: Normal, regular S1, S2. No added sounds, no gallops, no rubs. Abdomen: Benign, soft. Positive bowel sounds. Extremities: No edema, no cyanosis, no clubbing. Skin exam is normal. Psych: Normal affect and mood. LAND COMMISSIONER: No focal deficits appreciated. DIAGNOSTIC STUDIES/LAB DATA: His labs showed the following: His white blood cells 13.6, hemoglobin 13.8, hematocrit 41, platelets 157. Sodium 132, potassium 4.4, chloride 101, total CO2 22, BUN 20, creatinine 1.25, glucose 249 , calcium 8.2, magnesium 1.2. His LFTs are elevated. AST 67, ALT 70. Troponins are 0 and then 0.03. He had no chest pain. His INR 1.17. His echocardiogram today showed his left ventricular systolic function to be normal 55%. No significant valvular disease. His chest x-ray that was done yesterday was reported to have emphysema. His brain CT, no acute intracranial pathology. His pacemaker interrogation done today showed it to be functioning normally. It is a DDD [employer] pacemaker, total atrial fibrillation burden 9.7% with longest episode of 2 hours since 01/12/18, total AFib 18 days. Nonsustained V- tach, longest 8 seconds. Normal permanent pacemaker function, atrial fibrillation with rapid ventricular response noted. Current rhythm sensing in both atrium and ventricle, the battery remaining longevity 8.5 years, lower rate 60, upper rate 130 beats per minute, and 93% of the time is sensing both atrium and ventricle. IMPRESSION: The patient is 57-year-old male patient with: 1. Presentation with syncopal episode of unclear etiology, could be related to atrial fibrillation possibility. 2. Status post permanent pacemaker implantation in October 2017 secondary to sick sinus syndrome. The pacemaker was interrogated today and is functioning normally. 3. Atrial fibrillation, radiofrequency ablation December 2017 at [facility]. 4. Paroxysmal atrial fibrillation. 5. The patient maintained on Xarelto and beta-reno treatment. 6. History of severe cardiomyopathy with ejection fraction 20% to 25% November 2017 with recovering ejection fraction to normal 55% by an echo done today. 7. Chronic obstructive pulmonary disease. 8. Long years of tobacco consumption, quit 2 years ago. 9. Moderate alcohol drinking. PLAN: Currently the patient is in sinus rhythm. I discussed him with hospitalist service. We will find out if and why his amiodarone was discontinued. If needed, amiodarone is a good choice in his case other than his COPD and observing and monitoring his lungs very carefully. Definitely, he needs to cut back on his alcohol drinking. He needs to stay hydrated. He needs to keep his potassium more than 4, magnesium more than 2 as you are already doing. Definitely strict control for his comorbidities and risk factors. We will try to obtain records from Dr. Kennedy. I do not think any further cardiac testing is needed at the present time. He is chest pain free. He is hemodynamically stable at the present time. I agree with continuing his beta-reno, LUZ inhibitors, and Xarelto for now as well as his magnesium. Once become available, we will review his medical records from Dr. Kennedy and make further recommendations accordingly. TIME SPENT: More than half of at least 60- to 65-plus minutes was spent in the [id number] education and counseling mode, discussing all of the above and making further recommendations as well as discussing with the hospitalist service. [id number]/[facility] #: [id number] ELIUD
[2018-07-22] MEDS: Albuterol 2.5 MG/3 ML NEB.SOL* (0.083%) INH SCH ×4 (03:18→14:58)
[2018-07-22] MEDS: Mometasone/Formoter 100/5 MDI INH SCH ×2 (06:13→07:18)
[2018-07-22 07:01] LABS: Hematocrit 39 % (42-52); Mean Corpuscular HGB Conc 34 g/dl (31-36); Mean Corpuscular Hemoglobin 33 pg (27-31); Mean Corpuscular Volume 99 fL (80-94); Mean Platelet Volume 8.4 um3 (7.4-10.4); Platelet Count 154 10^3/ul (150-450); Red Blood Count 3.89 10^6/ul (4.00-5.40); Red Cell Distribution Width 14 % (10.5-15)
[2018-07-22 07:07] LABS: INR 0.98 (0.77-1.02)
[2018-07-22] MEDS: Umeclidinium 62.5 MDI(NF) MDI INH SCH (07:19)
[2018-07-22 07:20] LABS: EGFR Non-African American 72.8 (>60)
[2018-07-22 08:40] LABS: ABS Basophils 0 10^3/ul (0-0.2); ABS Eosinophils 0 10^3/ul (0-0.6); ABS Lymphocytes 0.4 10^3/ul (1.0-4.8); ABS Monocytes 1.3 10^3/ul (0-0.8); ABS Neutrophils 23.3 10^3/ul (1.5-7.7); ABS Nucleated RBC 0 10^3/ul; Eosinophil % 0 % (0-6); Lymphocyte % 1.5 % (25-47); Nucleated Red Blood Cells % 0
[2018-07-22] MEDS: Azithromycin TAB* 250 MG PO SCH (09:04)
[2018-07-22] MEDS: Losartan TAB* 25 MG PO SCH (09:04)
[2018-07-22] MEDS: predniSONE TAB* 50 MG PO SCH (09:05)
[2018-07-22] MEDS: Metoprolol Succinate XL TAB* 50 MG PO SCH ×2 (09:05→21:14)
[2018-07-22] MEDS: Magnesium Oxide TAB* 400 MG PO SCH (09:06)
[2018-07-22] MEDS: Rivaroxaban TAB(*) 20 MG TAB PO SCH (09:06)
[2018-07-22] MEDS: Benzonatate CAP* 100 MG PO PRN ×2 (09:07→21:35)
[2018-07-22] MEDS ORDERED: Albuterol 2.5 MG/3 ML NEB.SOL* (0.083%) INH PRN (15:28)
--- NOTE | 2018-07-22 15:54 | PN ---
Subjective Date of Service: 07/22/18 Interval History: Patient has persistent SOB which is worse than baseline and stable from yesterday. Patient denies F/C, N/V, abdominal pain, diarrhea, CP, presyncope, dizziness on standing, or other pain. Discussed with outpatient e commerce marketing manager and patient the risks and benefits of going to [facility] and patient is amenable to starting. Patient states he is amenable to complete abstinence from alcohol. Family History: Unchanged from Admission Social History: Unchanged from Admission Past Medical History: Unchanged from Admission Objective Active Medications: Albuterol (Ventolin 2.5 Mg/3 Ml Neb.Leona*) 2.5 mg INH Q4H PRN PRN Reason: WHEEZING Benzonatate (Tessalon Cap*) 200 mg PO TID PRN PRN Reason: cough Last Admin: 07/22/18 09:07 Dose: 200 mg Dofetilide (Tikosyn Cap*) 250 mcg PO BID [facility] Doxycycline Hyclate (Vibramycin Cap(*)) 100 mg PO BID [facility] Losartan Potassium (Cozaar Tab*) 50 mg PO DAILY [facility] Last Admin: 07/22/18 09:04 Dose: 50 mg Magnesium Oxide (Magox 400 Tab*) 800 mg PO DAILY [facility] Last Admin: 07/22/18 09:06 Dose: 800 mg Metoprolol Succinate (Toprol Xl Tab*) 150 mg PO BID [facility] Last Admin: 07/22/18 09:05 Dose: 150 mg Mometasone Furoate/Formoterol Fumar (Dulera 100/5 Mdi*) 1 puff INH DAILY [facility] Last Admin: 07/22/18 07:18 Dose: Not Given Prednisone (Deltasone Tab*) 50 mg PO DAILY [facility] Last Admin: 07/22/18 09:05 Dose: 50 mg Rivaroxaban (Xarelto(*)) 20 mg PO DAILY [facility] Last Admin: 07/22/18 09:06 Dose: 20 mg Umeclidinium [place] (Incruse Ellipta Mdi (Nf)) 1 inh INH DAILY [facility] Last Admin: 07/22/18 07:19 Dose: Not Given Vital Signs - 8 hr 07/22/18 07/22/18 07/22/18 07:47 08:33 09:14 Temperature 97.3 F 97.3 F Pulse Rate 72 61 Respiratory 20 20 Rate Blood Pressure 108/68 (mmHg) O2 Sat by Pulse 96 96 Oximetry 07/22/18 07/22/18 07/22/18 10:57 11:29 14:44 Temperature 98.0 F 97.7 F Pulse Rate 75 68 78 Respiratory 18 14 Rate Blood Pressure 119/68 (mmHg) O2 Sat by Pulse 95 96 96 Oximetry 07/22/18 07/22/18 07/22/18 14:50 14:59 15:40 Temperature 97.7 F Pulse Rate 74 76 68 Respiratory 18 14 Rate Blood Pressure 114/67 122/84 (mmHg) O2 Sat by Pulse 96 96 Oximetry Oxygen Devices in Use Now: None Appearance: Patient is a 57yo male who appears older than stated age and is sitting in the bed in [facility]. Eyes: No Scleral Icterus, PERRLA Ears/Nose/Mouth/Throat: NL Teeth, Lips, Gums, Clear Oropharnyx, Mucous Membranes Moist Neck: NL Appearance and Movements; NL JVP, Trachea Midline Respiratory: Symmetrical Chest Expansion and Respiratory Effort, Clear to Auscultation, - - Diminished throughout. Cardiovascular: NL Sounds; No Murmurs; No JVD, RRR, No Edema Abdominal: NL Sounds; No Tenderness; No Distention, No Hepatosplenomegaly Lymphatic: No Cervical Adenopathy Extremities: No Edema, No Clubbing, Cyanosis Skin: No Rash or Ulcers, No Nodules or Sclerosis Neurological: Alert and Oriented x 3, NL Sensation, NL Muscle Strength and Tone , - - CN II-XII intact. Result Diagrams: 07/22/18 06:38 07/22/18 06:38 Additional Lab and Data: Lab Results Assess/Plan/Problems-Billing Assessment: Patient is a 57yo male with a PMH for AFib, SSS with pacemaker, COPD, and hepatitis C who is admitted for evaluation of syncope and is having intermittent episodes of Afib with RVR with rates up to the 200s. - Patient Problems (1) Atrial fibrillation Current Visit: No Status: Chronic Code(s): I48.91 - UNSPECIFIED ATRIAL FIBRILLATION SNOMED Code(s): 75186917 Comment: - 2 episodes of rapid Afib. Converted with doses of IV metoprolol - Is in Afib 9% of the time according to pacer interrogation. Has been having increasing number of Afib episodes in last couple weeks without overt symptoms. - Continue Xarelto and Metoprolol - Episode of Afib with RVR not able to be correlated with syncopal episode. - Cardiology consult appreciated, recommended rhythm control - Discussed with outpatient e commerce marketing manager and will not start amiodarone due to lung toxicity. Started Tikosyn, will monitor electrolytes and QT closely. - Discussed the possible need for alcohol abstinence with patient due to Afib/ HFrEF and history of Hepatitis C with ongoing LFT elevation. - Monitor for signs of alcohol withdrawal. (2) HFrEF (heart failure with reduced ejection fraction) Current Visit: Yes Status: Acute Code(s): I50.20 - UNSPECIFIED SYSTOLIC ( CONGESTIVE) HEART FAILURE SNOMED Code(s): 524392939 Comment: - EF normal on Echo - No signs of exacerbation - Was likely rate related previously. (3) COPD (chronic obstructive pulmonary disease) Current Visit: No Status: Acute Code(s): J44.9 - CHRONIC OBSTRUCTIVE PULMONARY DISEASE, UNSPECIFIED SNOMED Code(s): 98259561 Comment: - COPD exacerbation symptoms since starting CPAP. - Continue Steroids and begin to taper - Continue inhalers and antibiotics - Severe COPD per records, has been started on home O2 and CPAP. - Follow up outpatient with Dr. Franco to discuss methods for CPAP adherence. - Nocturnal oxygen (4) Hepatitis C Current Visit: No Status: Acute Comment: - Has been treated. - With elevated LFTs - Unknown cause, likely related to Alcohol abuse. (5) Hypertension Current Visit: No Status: Acute Code(s): I10 - ESSENTIAL (PRIMARY) HYPERTENSION SNOMED Code(s): 80527650 Comment: - Normotensive - Continue metoprolol and losartan (6) Hypomagnesemia Current Visit: No Status: Acute Code(s): E83.42 - HYPOMAGNESEMIA SNOMED Code(s): 549248678 Comment: - Low magnesium, replace IV and PO (7) Hx of ulcerative colitis Current Visit: No Status: Chronic Priority: Medium Code(s): Z87.19 - PERSONAL HISTORY OF OTHER DISEASES OF THE DIGESTIVE SYSTEM SNOMED Code(s): 289302110 Comment: - Complete colectomy, no signs of disease activity. - Current Ileostomy. (8) DVT prophylaxis Current Visit: No Status: Acute Onset Date: 12/26/14 Code(s): UZR4187 - SNOMED Code(s): 663995100 Comment: - Xarelto (9) Full code status Current Visit: No Status: Acute Onset Date: 12/26/14 Code(s): Z78.9 - OTHER SPECIFIED HEALTH STATUS SNOMED Code(s): 942659366 Comment: Status and Disposition: Inpatient.
[2018-07-22] MEDS: Dofetilide CAP* 250 MCG PO SCH (21:13)
[2018-07-22] MEDS: DOXYcycline CAP(*) 100 MG PO SCH (21:15)
[2018-07-23 06:24] LABS: Hematocrit 38 % (42-52); Hemoglobin 12.9 g/dl (14.0-18.0); Mean Corpuscular HGB Conc 34 g/dl (31-36); Mean Corpuscular Hemoglobin 34 pg (27-31); Mean Corpuscular Volume 99 fL (80-94); Mean Platelet Volume 8.1 um3 (7.4-10.4); Platelet Count 135 10^3/ul (150-450); Red Blood Count 3.78 10^6/ul (4.00-5.40); Red Cell Distribution Width 14 % (10.5-15)
[2018-07-23 06:33] LABS: ABS Basophils 0 10^3/ul (0-0.2); ABS Eosinophils 0 10^3/ul (0-0.6); ABS Lymphocytes 0.8 10^3/ul (1.0-4.8); ABS Monocytes 1.6 10^3/ul (0-0.8); ABS Neutrophils 12.6 10^3/ul (1.5-7.7); ABS Nucleated RBC 0 10^3/ul; Eosinophil % 0.1 % (0-6); Lymphocyte % 5.4 % (25-47); Nucleated Red Blood Cells % 0
[2018-07-23 06:43] LABS: EGFR Non-African American 88.1 (>60)
[2018-07-23] MEDS: Mometasone/Formoter 100/5 MDI INH SCH (07:35)
[2018-07-23] MEDS: Umeclidinium 62.5 MDI(NF) MDI INH SCH (07:35)
[2018-07-23] MEDS: Albuterol 2.5 MG/3 ML NEB.SOL* (0.083%) INH SCH ×3 (07:41→19:13)
[2018-07-23] MEDS: Magnesium Oxide TAB* 400 MG PO SCH (09:19)
[2018-07-23] MEDS: Losartan TAB* 25 MG PO SCH (09:19)
[2018-07-23] MEDS: Metoprolol Succinate XL TAB* 50 MG PO SCH ×2 (09:19→21:15)
[2018-07-23] MEDS: Rivaroxaban TAB(*) 20 MG TAB PO SCH (09:19)
[2018-07-23] MEDS: predniSONE TAB* 50 MG PO SCH (09:19)
[2018-07-23] MEDS: DOXYcycline CAP(*) 100 MG PO SCH ×2 (09:19→21:14)
[2018-07-23] MEDS: Dofetilide CAP* 250 MCG PO SCH ×2 (09:20→21:14)
[2018-07-23] MEDS: Loperamide CAP* 2 MG PO SCH ×2 (10:55→21:15)
[2018-07-23] MEDS: Lactobacillus Acidophilus* 1 TAB PO SCH (15:20)
--- NOTE | 2018-07-23 15:42 | PN ---
Subjective Date of Service: 07/23/18 Interval History: Patient is mainly concerned about excoriation around his ileostomy site. Patient states that he had gone 5 day without changing it and it usually is changed every 3 days. Patient denies palpitations, CP, SOB, N/V, abdominal pain , hematochezia, dysuria, dizziness, or other alarming symptoms. Family History: Unchanged from Admission Social History: Unchanged from Admission Past Medical History: Unchanged from Admission Objective Active Medications: Albuterol (Ventolin 2.5 Mg/3 Ml Neb.Leona*) 2.5 mg INH Q4H PRN PRN Reason: WHEEZING Last Admin: 07/23/18 07:33 Dose: 2.5 mg Albuterol (Ventolin 2.5 Mg/3 Ml Neb.Leona*) 2.5 mg INH Q6H [facility] Last Admin: 07/23/18 14:18 Dose: 2.5 mg Benzonatate (Tessalon Cap*) 200 mg PO TID PRN PRN Reason: cough Last Admin: 07/22/18 21:35 Dose: 200 mg Dofetilide (Tikosyn Cap*) 250 mcg PO BID [facility] Last Admin: 07/23/18 09:20 Dose: 250 mcg Doxycycline Hyclate (Vibramycin Cap(*)) 100 mg PO BID [facility] Last Admin: 07/23/18 09:19 Dose: 100 mg Lactobacillus Rhamnosus (Lactobacillus Acidophilus*) 1 tab PO DAILY [facility] Last Admin: 07/23/18 15:20 Dose: 1 tab Loperamide HCl (Imodium Cap*) 2 mg PO BID [facility] Last Admin: 07/23/18 10:55 Dose: 2 mg Losartan Potassium (Cozaar Tab*) 50 mg PO DAILY [facility] Last Admin: 07/23/18 09:19 Dose: 50 mg Magnesium Oxide (Magox 400 Tab*) 800 mg PO DAILY [facility] Last Admin: 07/23/18 09:19 Dose: 800 mg Metoprolol Succinate (Toprol Xl Tab*) 150 mg PO BID [facility] Last Admin: 07/23/18 09:19 Dose: 150 mg Mometasone Furoate/Formoterol Fumar (Dulera 100/5 Mdi*) 1 puff INH DAILY [facility] Last Admin: 07/23/18 07:35 Dose: 1 puff Prednisone (Deltasone Tab*) 50 mg PO DAILY [facility] Last Admin: 07/23/18 09:19 Dose: 50 mg Rivaroxaban (Xarelto(*)) 20 mg PO DAILY [facility] Last Admin: 07/23/18 09:19 Dose: 20 mg Umeclidinium [place] (Incruse Ellipta Mdi (Nf)) 1 inh INH DAILY [facility] Last Admin: 07/23/18 07:35 Dose: Not Given Vital Signs - 8 hr 07/23/18 07/23/18 07/23/18 07:40 07:41 10:55 Temperature 97.9 F Pulse Rate 69 Respiratory 20 18 18 Rate Blood Pressure 100/71 (mmHg) O2 Sat by Pulse 96 Oximetry 07/23/18 07/23/18 07/23/18 11:11 12:28 14:20 Temperature 97.6 F Pulse Rate 64 65 Respiratory 16 20 18 Rate Blood Pressure 124/76 (mmHg) O2 Sat by Pulse 96 99 Oximetry 07/23/18 15:22 Temperature 97.5 F Pulse Rate 65 Respiratory 24 Rate Blood Pressure 154/84 (mmHg) O2 Sat by Pulse 98 Oximetry Oxygen Devices in Use Now: None Appearance: Patient is a 57yo male who appears stated age and is sitting in the bed in [facility]. Eyes: No Scleral Icterus, PERRLA Ears/Nose/Mouth/Throat: NL Teeth, Lips, Gums, Clear Oropharnyx, Mucous Membranes Moist Neck: NL Appearance and Movements; NL JVP, Trachea Midline Respiratory: Symmetrical Chest Expansion and Respiratory Effort, Clear to Auscultation Cardiovascular: NL Sounds; No Murmurs; No JVD, RRR, No Edema Abdominal: NL Sounds; No Tenderness; No Distention, No Hepatosplenomegaly, - - Ileostomy with surrounding erythema and excoriation. Lymphatic: No Cervical Adenopathy Extremities: No Edema, No Clubbing, Cyanosis Skin: No Rash or Ulcers, No Nodules or Sclerosis Neurological: Alert and Oriented x 3, NL Sensation, NL Muscle Strength and Tone , - - CN II-XII intact. Result Diagrams: 07/23/18 06:00 07/23/18 06:00 Additional Lab and Data: Lab Results Assess/Plan/Problems-Billing Assessment: Patient is a 57yo male with a PMH for AFib, SSS with pacemaker, COPD, and hepatitis C who is admitted for evaluation of syncope and is having intermittent episodes of Afib with RVR with rates up to the 200s. - Patient Problems (1) Atrial fibrillation Current Visit: No Status: Chronic Code(s): I48.91 - UNSPECIFIED ATRIAL FIBRILLATION SNOMED Code(s): 44885603 Comment: - 2 episodes of rapid Afib. Converted with doses of IV metoprolol - Is in Afib 9% of the time according to pacer interrogation. Has been having increasing number of Afib episodes in last couple weeks without overt symptoms. - Continue Xarelto and Metoprolol - Episode of Afib with RVR not able to be correlated with syncopal episode. - Cardiology consult appreciated, recommended rhythm control - Discussed with outpatient director television and will not start amiodarone due to lung toxicity. Started Tikosyn, will monitor electrolytes and QT closely. - Discussed the possible need for alcohol abstinence with patient due to Afib/ HFrEF and history of Hepatitis C with ongoing LFT elevation. - Monitor for signs of alcohol withdrawal. - QTc 447 at most recent EKG, monitor daily EKGs. (2) HFrEF (heart failure with reduced ejection fraction) Current Visit: Yes Status: Acute Code(s): I50.20 - UNSPECIFIED SYSTOLIC ( CONGESTIVE) HEART FAILURE SNOMED Code(s): 106954236 Comment: - EF normal on Echo - No signs of exacerbation - Was likely rate related previously. (3) COPD (chronic obstructive pulmonary disease) Current Visit: No Status: Acute Code(s): J44.9 - CHRONIC OBSTRUCTIVE PULMONARY DISEASE, UNSPECIFIED SNOMED Code(s): 75506425 Comment: - COPD exacerbation symptoms since starting CPAP. - Continue Steroids and begin to taper - Continue inhalers and antibiotics - Severe COPD per records, has been started on home O2 and CPAP. - Follow up outpatient with Dr. Franco to discuss methods for CPAP adherence. - Nocturnal oxygen (4) Hepatitis C Current Visit: No Status: Acute Comment: - Has been treated. - With elevated LFTs which trended down. - Unknown cause, likely related to Alcohol abuse. (5) Hypertension Current Visit: No Status: Acute Code(s): I10 - ESSENTIAL (PRIMARY) HYPERTENSION SNOMED Code(s): 13471992 Comment: - Normotensive - Continue metoprolol and losartan (6) Hypomagnesemia Current Visit: No Status: Acute Code(s): E83.42 - HYPOMAGNESEMIA SNOMED Code(s): 418965740 Comment: - Low magnesium, replace IV and PO - Immodium to slow down ileostomy output and hopefully slow decrease in Magnesium. (7) Hx of ulcerative colitis Current Visit: No Status: Chronic Priority: Medium Code(s): Z87.19 - PERSONAL HISTORY OF OTHER DISEASES OF THE DIGESTIVE SYSTEM SNOMED Code(s): 912350210 Comment: - Complete colectomy, no signs of disease activity. - Current Ileostomy. - Empties approxiately 6 times a day. Imodium to slow down ileostomy output. (8) DVT prophylaxis Current Visit: No Status: Acute Onset Date: 12/26/14 Code(s): KPB9457 - SNOMED Code(s): 275766425 Comment: - Marielena (9) Full code status Current Visit: No Status: Acute Onset Date: 12/26/14 Code(s): Z78.9 - OTHER SPECIFIED HEALTH STATUS SNOMED Code(s): 048166100 Comment: Status and Disposition: Inpatient.
[2018-07-24] MEDS: Albuterol 2.5 MG/3 ML NEB.SOL* (0.083%) INH SCH ×4 (00:06→19:44)
[2018-07-24 06:19] LABS: Hematocrit 38 % (42-52); Hemoglobin 12.8 g/dl (14.0-18.0); Mean Corpuscular HGB Conc 34 g/dl (31-36); Mean Corpuscular Hemoglobin 33 pg (27-31); Mean Corpuscular Volume 99 fL (80-94); Mean Platelet Volume 8.2 fL (7.4-10.4); Platelet Count 135 10^3/ul (150-450); Red Blood Count 3.83 10^6/ul (4.00-5.40); Red Cell Distribution Width 14 % (10.5-15); White Blood Count 13.1 10^3/ul (3.5-10.8)
[2018-07-24 06:42] LABS: ABS Basophils 0 10^3/ul (0-0.2); ABS Eosinophils 0 10^3/ul (0-0.6); ABS Monocytes 1.6 10^3/ul (0-0.8); ABS Neutrophils 10.4 10^3/ul (1.5-7.7); ABS Nucleated RBC 0 10^3/ul; Eosinophil % 0.3 % (0-6); Lymphocyte % 7.7 % (25-47); Nucleated Red Blood Cells % 0
[2018-07-24] MEDS: Mometasone/Formoter 100/5 MDI INH SCH (07:41)
[2018-07-24] MEDS: Umeclidinium 62.5 MDI(NF) MDI INH SCH (07:45)
[2018-07-24] MEDS: Rivaroxaban TAB(*) 20 MG TAB PO SCH (10:43)
[2018-07-24] MEDS: DOXYcycline CAP(*) 100 MG PO SCH ×2 (10:43→20:28)
[2018-07-24] MEDS: predniSONE TAB* 50 MG PO SCH (10:43)
[2018-07-24] MEDS: Lactobacillus Acidophilus* 1 TAB PO SCH (10:43)
[2018-07-24] MEDS: Loperamide CAP* 2 MG PO SCH ×2 (10:43→20:28)
[2018-07-24] MEDS: Losartan TAB* 25 MG PO SCH (10:43)
[2018-07-24] MEDS: Magnesium Oxide TAB* 400 MG PO SCH (10:43)
[2018-07-24] MEDS: Metoprolol Succinate XL TAB* 50 MG PO SCH ×2 (10:43→20:27)
[2018-07-24] MEDS ORDERED: Magnesium Sulfate 2 GM IV* 2 GM/50 ML BAG IVPB ONE (11:16)
[2018-07-24] MEDS: Digoxin IV* 0.5 MG/2 ML AMP (0.25 MG/ML) IV SLOW PU SCH ×2 (13:11→17:20)
--- NOTE | 2018-07-24 13:14 | PN ---
Subjective Date of Service: 07/24/18 Interval History: Patient has on complaints. Patient had a 5 beat run of Vtach during which he had no symptoms. Patient notices no change in the output from his ileostomy. Patient states the irritation is improved. Patient denies F/C, N/V, abdominal pain, dizziness, palpitations, CP, SOB, or other pain. Patient had a short episode of Afib with RVR which was also asymptomatic. Family History: Unchanged from Admission Social History: Unchanged from Admission Past Medical History: Unchanged from Admission Objective Active Medications: Albuterol (Ventolin 2.5 Mg/3 Ml Neb.Leona*) 2.5 mg INH Q4H PRN PRN Reason: WHEEZING Last Admin: 07/23/18 07:33 Dose: 2.5 mg Albuterol (Ventolin 2.5 Mg/3 Ml Neb.Leona*) 2.5 mg INH [id number] AWAKE [facility] Last Admin: 07/24/18 12:45 Dose: 2.5 mg Benzonatate (Tessalon Cap*) 200 mg PO TID PRN PRN Reason: cough Last Admin: 07/22/18 21:35 Dose: 200 mg Digoxin (Digoxin Iv*) 0.25 mg IV SLOW PU Q4H JUSTIN Stop: 07/24/18 17:01 Doxycycline Hyclate (Vibramycin Cap(*)) 100 mg PO BID [facility] Last Admin: 07/24/18 10:43 Dose: 100 mg Lactobacillus Rhamnosus (Lactobacillus Acidophilus*) 1 tab PO DAILY [facility] Last Admin: 07/24/18 10:43 Dose: 1 tab Loperamide HCl (Imodium Cap*) 2 mg PO BID JUSTIN Last Admin: 07/24/18 10:43 Dose: 2 mg Losartan Potassium (Cozaar Tab*) 50 mg PO DAILY [facility] Last Admin: 07/24/18 10:43 Dose: 50 mg Magnesium Oxide (Magox 400 Tab*) 800 mg PO DAILY [facility] Last Admin: 07/24/18 10:43 Dose: 800 mg Metoprolol Succinate (Toprol Xl Tab*) 150 mg PO BID [facility] Last Admin: 07/24/18 10:43 Dose: 150 mg Mometasone Furoate/Formoterol Fumar (Dulera 100/5 Mdi*) 1 puff INH DAILY [facility] Last Admin: 07/24/18 07:41 Dose: 1 puff Prednisone (Deltasone Tab*) 50 mg PO DAILY [facility] Stop: 07/25/18 09:01 Last Admin: 07/24/18 10:43 Dose: 50 mg Rivaroxaban (Xarelto(*)) 20 mg PO DAILY [facility] Last Admin: 07/24/18 10:43 Dose: 20 mg Umeclidinium [place] (Incruse Ellipta Mdi (Nf)) 1 inh INH DAILY [facility] Last Admin: 07/24/18 07:45 Dose: Not Given Vital Signs - 8 hr 07/24/18 07/24/18 07/24/18 07:14 07:43 10:43 Temperature 97.5 F Pulse Rate 59 65 Respiratory 16 15 18 Rate Blood Pressure 121/74 (mmHg) O2 Sat by Pulse 98 95 Oximetry 07/24/18 07/24/18 10:59 12:46 Temperature 97.3 F Pulse Rate 78 68 Respiratory 28 15 Rate Blood Pressure 127/76 (mmHg) O2 Sat by Pulse 96 96 Oximetry Oxygen Devices in Use Now: None Appearance: Patient is a 57 yo male who appears stated age and is sitting in the bed in [facility]. Eyes: No Scleral Icterus, PERRLA Ears/Nose/Mouth/Throat: NL Teeth, Lips, Gums, Clear Oropharnyx, Mucous Membranes Moist Neck: NL Appearance and Movements; NL JVP, Trachea Midline Respiratory: Symmetrical Chest Expansion and Respiratory Effort, Clear to Auscultation Cardiovascular: NL Sounds; No Murmurs; No JVD, RRR, No Edema Abdominal: NL Sounds; No Tenderness; No Distention, No Hepatosplenomegaly, - - Ileostomy present in LLQ with liquid stool. Lymphatic: No Cervical Adenopathy Extremities: No Edema, No Clubbing, Cyanosis Skin: No Rash or Ulcers, No Nodules or Sclerosis Neurological: Alert and Oriented x 3, NL Sensation, NL Muscle Strength and Tone , - - CN II-XII intact. Result Diagrams: 07/24/18 05:56 07/24/18 05:56 Additional Lab and Data: Lab Results Assess/Plan/Problems-Billing Assessment: Patient is a 57yo male with a PMH for AFib, SSS with pacemaker, COPD, and hepatitis C who is admitted for evaluation of syncope and is having intermittent episodes of Afib with RVR with rates up to the 200s. - Patient Problems (1) Atrial fibrillation Current Visit: No Status: Chronic Code(s): I48.91 - UNSPECIFIED ATRIAL FIBRILLATION SNOMED Code(s): 47632954 Comment: - 3 episodes of rapid Afib. Converted with doses of IV metoprolol - Is in Afib 9% of the time according to pacer interrogation. Has been having increasing number of Afib episodes in last couple weeks without overt symptoms. - Continue Xarelto and Metoprolol - Episode of Afib with RVR not able to be correlated with syncopal episode. - Cardiology consult appreciated, recommended rhythm control - Discussed with outpatient retirement plan specialist who recommended Tikosyn. Started Tikosyn but had provoked VT. - Will give 48hr washout for Tikosyn and then begin amiodarone for a short time until patient can see his retirement plan specialist/air pollution specialist. - Will load with digoxin for rate control when going into Afib. - Discussed the need for alcohol abstinence with patient due to Afib/HFrEF and history of Hepatitis C with ongoing LFT elevation. - Monitor daily EKGs. (2) HFrEF (heart failure with reduced ejection fraction) Current Visit: Yes Status: Acute Code(s): I50.20 - UNSPECIFIED SYSTOLIC ( CONGESTIVE) HEART FAILURE SNOMED Code(s): 017982216 Comment: - EF normal on Echo - No signs of exacerbation - Was likely rate related previously. (3) COPD (chronic obstructive pulmonary disease) Current Visit: No Status: Acute Code(s): J44.9 - CHRONIC OBSTRUCTIVE PULMONARY DISEASE, UNSPECIFIED SNOMED Code(s): 61305402 Comment: - COPD exacerbation symptoms since starting CPAP. - Continue Steroids and finish tomorrow. - Continue inhalers and antibiotics - Severe COPD per records, has been started on home O2 and CPAP. - Follow up outpatient with Dr. Franco to discuss methods for CPAP adherence and possible BiPAP initiation - Nocturnal oxygen (4) Hypertension Current Visit: No Status: Acute Code(s): I10 - ESSENTIAL (PRIMARY) HYPERTENSION SNOMED Code(s): 87965535 Comment: - Normotensive - Continue metoprolol and losartan (5) Hypomagnesemia Current Visit: No Status: Acute Code(s): E83.42 - HYPOMAGNESEMIA SNOMED Code(s): 989288753 Comment: - Low magnesium, replace IV and PO - Immodium to slow down ileostomy output and hopefully slow decrease in Magnesium. (6) Hx of ulcerative colitis Current Visit: No Status: Chronic Priority: Medium Code(s): Z87.19 - PERSONAL HISTORY OF OTHER DISEASES OF THE DIGESTIVE SYSTEM SNOMED Code(s): 360560945 Comment: - Complete colectomy, no signs of disease activity. - Current Ileostomy. - Empties approxiately 6 times a day. Imodium to slow down ileostomy output. (7) DVT prophylaxis Current Visit: No Status: Acute Onset Date: 12/26/14 Code(s): OYJ0045 - SNOMED Code(s): 567642365 Comment: - Xarelto (8) Full code status Current Visit: No Status: Acute Onset Date: 12/26/14 Code(s): Z78.9 - OTHER SPECIFIED HEALTH STATUS SNOMED Code(s): 582690755 Comment: Status and Disposition: Inpatient.
[2018-07-24] MEDS: Benzonatate CAP* 100 MG PO PRN (20:44)
[2018-07-25] MEDS: Albuterol 2.5 MG/3 ML NEB.SOL* (0.083%) INH SCH ×4 (00:33→20:04)
[2018-07-25 07:25] LABS: EGFR Non-African American 82.7 (>60)
[2018-07-25] MEDS: Mometasone/Formoter 100/5 MDI INH SCH (07:51)
[2018-07-25] MEDS: Umeclidinium 62.5 MDI(NF) MDI INH SCH (08:11)
[2018-07-25] MEDS: Losartan TAB* 25 MG PO SCH (09:23)
[2018-07-25] MEDS: predniSONE TAB* 50 MG PO SCH (09:23)
[2018-07-25] MEDS: Metoprolol Succinate XL TAB* 50 MG PO SCH ×2 (09:24→22:10)
[2018-07-25] MEDS: Rivaroxaban TAB(*) 20 MG TAB PO SCH (09:24)
[2018-07-25] MEDS: Loperamide CAP* 2 MG PO SCH ×2 (09:24→22:09)
[2018-07-25] MEDS: Lactobacillus Acidophilus* 1 TAB PO SCH (09:24)
[2018-07-25] MEDS: DOXYcycline CAP(*) 100 MG PO SCH ×2 (09:24→22:08)
[2018-07-25] MEDS: Magnesium Oxide TAB* 400 MG PO SCH (09:24)
--- NOTE | 2018-07-25 11:55 | PN ---
Subjective Date of Service: 07/25/18 Interval History: Patient is feeling well today. Patient denies F/C, N/V, Abdominal pain, CP, SOB , dizziness, or other pain. Patient complains of continued irritation around his ostomy that is improving. Family History: Unchanged from Admission Social History: Unchanged from Admission Past Medical History: Unchanged from Admission Objective Active Medications: Albuterol (Ventolin 2.5 Mg/3 Ml Neb.Leona*) 2.5 mg INH Q4H PRN PRN Reason: WHEEZING Last Admin: 07/23/18 07:33 Dose: 2.5 mg Albuterol (Ventolin 2.5 Mg/3 Ml Neb.Leona*) 2.5 mg INH [id number] AWAKE [facility] Last Admin: 07/25/18 07:51 Dose: 2.5 mg Amiodarone HCl (Cordarone Tab*) 200 mg PO BID [facility] Benzonatate (Tessalon Cap*) 200 mg PO TID PRN PRN Reason: cough Last Admin: 07/24/18 20:44 Dose: 200 mg Digoxin (Lanoxin Tab*) 0.125 mg PO 1700 [facility] Doxycycline Hyclate (Vibramycin Cap(*)) 100 mg PO BID [facility] Stop: 07/25/18 23:59 Last Admin: 07/25/18 09:24 Dose: 100 mg Lactobacillus Rhamnosus (Lactobacillus Acidophilus*) 1 tab PO DAILY [facility] Last Admin: 07/25/18 09:24 Dose: 1 tab Loperamide HCl (Imodium Cap*) 2 mg PO BID [facility] Last Admin: 07/25/18 09:24 Dose: 2 mg Losartan Potassium (Cozaar Tab*) 50 mg PO DAILY [facility] Last Admin: 07/25/18 09:23 Dose: 50 mg Magnesium Oxide (Magox 400 Tab*) 800 mg PO DAILY [facility] Last Admin: 07/25/18 09:24 Dose: 800 mg Metoprolol Succinate (Toprol Xl Tab*) 150 mg PO BID [facility] Last Admin: 07/25/18 09:24 Dose: 150 mg Mometasone Furoate/Formoterol Fumar (Dulera 100/5 Mdi*) 1 puff INH DAILY [facility] Last Admin: 07/25/18 07:51 Dose: 1 puff Rivaroxaban (Xarelto(*)) 20 mg PO DAILY [facility] Last Admin: 07/25/18 09:24 Dose: 20 mg Umeclidinium [place] (Incruse Ellipta Mdi (Nf)) 1 inh INH DAILY [facility] Last Admin: 07/25/18 08:11 Dose: Not Given Vital Signs - 8 hr 07/25/18 07/25/18 07/25/18 03:56 07:47 07:48 Temperature 97.5 F 97.7 F Pulse Rate 70 70 Respiratory 18 18 16 Rate Blood Pressure 121/71 125/83 (mmHg) O2 Sat by Pulse 98 95 Oximetry 07/25/18 07/25/18 07:54 09:24 Temperature Pulse Rate 70 Respiratory 16 20 Rate Blood Pressure (mmHg) O2 Sat by Pulse 96 Oximetry Oxygen Devices in Use Now: None Appearance: Patient is a 57yo male who appears stated age and is sitting in the bed in [facility]. Eyes: No Scleral Icterus, PERRLA Ears/Nose/Mouth/Throat: NL Teeth, Lips, Gums, Clear Oropharnyx, Mucous Membranes Moist Neck: NL Appearance and Movements; NL JVP, Trachea Midline Respiratory: Symmetrical Chest Expansion and Respiratory Effort, - - Diminished Cardiovascular: NL Sounds; No Murmurs; No JVD, RRR, No Edema Abdominal: NL Sounds; No Tenderness; No Distention, No Hepatosplenomegaly, - - Ostomy in place. Lymphatic: No Cervical Adenopathy Extremities: No Edema, No Clubbing, Cyanosis Skin: No Nodules or Sclerosis Neurological: Alert and Oriented x 3, NL Sensation, NL Muscle Strength and Tone , - - CN II-XII intact. Result Diagrams: 07/24/18 05:56 07/25/18 06:48 Additional Lab and Data: Lab Results Assess/Plan/Problems-Billing Assessment: Patient is a 57yo male with a PMH for AFib, SSS with pacemaker, COPD, and hepatitis C who is admitted for evaluation of syncope and is having intermittent episodes of Afib with RVR with rates up to the 200s. - Patient Problems (1) Atrial fibrillation Current Visit: No Status: Chronic Code(s): I48.91 - UNSPECIFIED ATRIAL FIBRILLATION SNOMED Code(s): 90586680 Comment: - 3 episodes of rapid Afib. Converted with doses of IV metoprolol - Is in Afib 9% of the time according to pacer interrogation. Has been having increasing number of Afib episodes in last couple weeks without overt symptoms. - Continue Xarelto and Metoprolol - Episode of Afib with RVR not able to be correlated with syncopal episode. - Cardiology consult appreciated, recommended rhythm control - Discussed with outpatient open end spinning operator who recommended Tikosyn. Started Tikosyn but had provoked VT. - 48hr washout for Tikosyn complete - Begin amiodarone 200mg BID for a short time until patient can see his open end spinning operator/live hanger. - Possible need for repeat ablation - Will load with digoxin for rate control when going into Afib and start low oral dose - Discussed the need for alcohol abstinence with patient due to Afib/HFrEF and history of Hepatitis C with ongoing LFT elevation. - Monitor daily EKGs. (2) HFrEF (heart failure with reduced ejection fraction) Current Visit: Yes Status: Acute Code(s): I50.20 - UNSPECIFIED SYSTOLIC ( CONGESTIVE) HEART FAILURE SNOMED Code(s): 157661619 Comment: - EF normal on Echo - No signs of exacerbation - Was likely rate related previously. (3) COPD (chronic obstructive pulmonary disease) Current Visit: No Status: Acute Code(s): J44.9 - CHRONIC OBSTRUCTIVE PULMONARY DISEASE, UNSPECIFIED SNOMED Code(s): 77078091 Comment: - COPD exacerbation symptoms since starting CPAP. - Steroids and antibiotics completed. - Continue inhaled - Severe COPD per records, has been started on home O2 and CPAP. - Follow up outpatient with Dr. Franco to discuss methods for CPAP adherence and possible BiPAP initiation - Nocturnal oxygen (4) Hypertension Current Visit: No Status: Acute Code(s): I10 - ESSENTIAL (PRIMARY) HYPERTENSION SNOMED Code(s): 01046658 Comment: - Normotensive - Continue metoprolol and losartan (5) Hypomagnesemia Current Visit: No Status: Acute Code(s): E83.42 - HYPOMAGNESEMIA SNOMED Code(s): 982244716 Comment: - Low magnesium, replace IV and PO - Immodium to slow down ileostomy output and hopefully slow decrease in Magnesium. (6) Hx of ulcerative colitis Current Visit: No Status: Chronic Priority: Medium Code(s): Z87.19 - PERSONAL HISTORY OF OTHER DISEASES OF THE DIGESTIVE SYSTEM SNOMED Code(s): 274046536 Comment: - Complete colectomy, no signs of disease activity. - Current Ileostomy. - Empties approxiately 6 times a day. Imodium to slow down ileostomy output. (7) DVT prophylaxis Current Visit: No Status: Acute Onset Date: 12/26/14 Code(s): NRD2075 - SNOMED Code(s): 636251548 Comment: - Marielena (8) Full code status Current Visit: No Status: Acute Onset Date: 12/26/14 Code(s): Z78.9 - OTHER SPECIFIED HEALTH STATUS SNOMED Code(s): 542969740 Comment: Status and Disposition: Inpatient.
[2018-07-25] MEDS: Benzonatate CAP* 100 MG PO PRN ×2 (16:20→22:20)
[2018-07-25] MEDS ORDERED: Digoxin TAB* 0.125 MG PO SCH (17:00)
[2018-07-25] MEDS: Amiodarone TAB* 200 MG PO SCH (22:08)
[2018-07-26 07:02] LABS: Hematocrit 39 % (42-52); Hemoglobin 13.4 g/dl (14.0-18.0); Mean Corpuscular HGB Conc 34 g/dl (31-36); Mean Corpuscular Hemoglobin 34 pg (27-31); Mean Corpuscular Volume 99 fL (80-94); Mean Platelet Volume 8.2 fL (7.4-10.4); Platelet Count 168 10^3/ul (150-450); Red Blood Count 3.95 10^6/ul (4.00-5.40); Red Cell Distribution Width 14 % (10.5-15)
[2018-07-26] MEDS: Albuterol 2.5 MG/3 ML NEB.SOL* (0.083%) INH SCH (07:32)
[2018-07-26] MEDS: Umeclidinium 62.5 MDI(NF) MDI INH SCH (07:34)
[2018-07-26] MEDS: Mometasone/Formoter 100/5 MDI INH SCH (07:35)
[2018-07-26 07:51] LABS: EGFR Non-African American 75.3 (>60)
[2018-07-26 08:31] LABS: ABS Basophils 0 10^3/ul (0-0.2); ABS Eosinophils 0.1 10^3/ul (0-0.6); ABS Lymphocytes 1.6 10^3/ul (1.0-4.8); ABS Monocytes 1.9 10^3/ul (0-0.8); ABS Neutrophils 14.4 10^3/ul (1.5-7.7); ABS Nucleated RBC 0 10^3/ul; Eosinophil % 0.7 % (0-6); Lymphocyte % 8.7 % (25-47); Nucleated Red Blood Cells % 0.1
[2018-07-26] MEDS: Amiodarone TAB* 200 MG PO SCH (08:57)
[2018-07-26] MEDS: Loperamide CAP* 2 MG PO SCH (09:00)
[2018-07-26] MEDS: Lactobacillus Acidophilus* 1 TAB PO SCH (09:00)
[2018-07-26] MEDS: Losartan TAB* 25 MG PO SCH (09:01)
[2018-07-26] MEDS: Metoprolol Succinate XL TAB* 50 MG PO SCH (09:01)
[2018-07-26] MEDS: Magnesium Oxide TAB* 400 MG PO SCH (09:01)
[2018-07-26] MEDS: Rivaroxaban TAB(*) 20 MG TAB PO SCH (09:02)
[2018-07-26] MEDS: Benzonatate CAP* 100 MG PO PRN (09:05)
[2018-07-26] MEDS ORDERED: Magnesium Sulfate IV* 3 GM in NS 0.9% 100 ML* 100 ML IVPB ONE (12:54)
--- NOTE | 2018-07-26 15:11 | PN ---
Subjective Date of Service: 07/26/18 Interval History: Patient states he is ready to go home. He denies SOB/CP. Discussed abstaining from alcohol and he states he is planning on not drinking. Discussed DC plan. Family History: Unchanged from Admission Social History: Unchanged from Admission Past Medical History: Unchanged from Admission Objective Active Medications: Albuterol (Ventolin 2.5 Mg/3 Ml Neb.Leona*) 2.5 mg INH Q4H PRN PRN Reason: WHEEZING Last Admin: 07/23/18 07:33 Dose: 2.5 mg Albuterol (Ventolin 2.5 Mg/3 Ml Neb.Leona*) 2.5 mg INH RT.BID [facility] Last Admin: 07/26/18 07:32 Dose: 2.5 mg Amiodarone HCl (Cordarone Tab*) 200 mg PO BID [facility] Last Admin: 07/26/18 08:57 Dose: 200 mg Benzonatate (Tessalon Cap*) 200 mg PO TID PRN PRN Reason: cough Last Admin: 07/26/18 09:05 Dose: 200 mg Digoxin (Lanoxin Tab*) 0.125 mg PO 1700 [facility] Last Admin: 07/25/18 16:17 Dose: 0.125 mg Lactobacillus Rhamnosus (Lactobacillus Acidophilus*) 1 tab PO DAILY [facility] Last Admin: 07/26/18 09:00 Dose: 1 tab Loperamide HCl (Imodium Cap*) 2 mg PO BID [facility] Last Admin: 07/26/18 09:00 Dose: 2 mg Losartan Potassium (Cozaar Tab*) 50 mg PO DAILY [facility] Last Admin: 07/26/18 09:01 Dose: 50 mg Magnesium Oxide (Magox 400 Tab*) 800 mg PO DAILY [facility] Last Admin: 07/26/18 09:01 Dose: 800 mg Metoprolol Succinate (Toprol Xl Tab*) 150 mg PO BID [facility] Last Admin: 07/26/18 09:01 Dose: 150 mg Mometasone Furoate/Formoterol Fumar (Dulera 100/5 Mdi*) 1 puff INH DAILY [facility] Last Admin: 07/26/18 07:35 Dose: 1 puff Rivaroxaban (Xarelto(*)) 20 mg PO DAILY [facility] Last Admin: 07/26/18 09:02 Dose: 20 mg Umeclidinium [place] (Incruse Ellipta Mdi (Nf)) 1 inh INH DAILY [facility] Last Admin: 07/26/18 07:34 Dose: Not Given Vital Signs - 8 hr 07/26/18 07/26/18 07/26/18 07:36 07:46 08:15 Temperature 97.9 F Pulse Rate 66 71 Respiratory 16 16 Rate Blood Pressure 115/77 (mmHg) O2 Sat by Pulse 96 96 Oximetry 07/26/18 07/26/18 07/26/18 09:00 11:23 12:12 Temperature 98.1 F Pulse Rate 73 Respiratory 20 20 16 Rate Blood Pressure 102/69 (mmHg) O2 Sat by Pulse 97 Oximetry Oxygen Devices in Use Now: None Appearance: 57 yo male A+O x3 in NAD Eyes: No Scleral Icterus, PERRLA Respiratory: Symmetrical Chest Expansion and Respiratory Effort, Clear to Auscultation Cardiovascular: NL Sounds; No Murmurs; No JVD, RRR, No Edema Abdominal: NL Sounds; No Tenderness; No Distention Extremities: No Edema, No Clubbing, Cyanosis Skin: No Rash or Ulcers, No Nodules or Sclerosis Neurological: Alert and Oriented x 3, NL Muscle Strength and Tone Result Diagrams: 07/26/18 06:24 07/26/18 06:24 Additional Lab and Data: Lab Results Assess/Plan/Problems-Billing Assessment: Patient is a 57yo male with a PMH for AFib, SSS with pacemaker, COPD, and hepatitis C who is admitted for evaluation of syncope and is having intermittent episodes of Afib with RVR with rates up to the 200s. - Patient Problems (1) Atrial fibrillation Comment: - 3 episodes of rapid Afib. Converted with doses of IV metoprolol - Is in Afib 9% of the time according to pacer interrogation. Has been having increasing number of Afib episodes in last couple weeks without overt symptoms. - Continue Xarelto and Metoprolol - Episode of Afib with RVR not able to be correlated with syncopal episode. - Cardiology consult appreciated, recommended rhythm control - Discussed with outpatient auto battery builder who recommended Tikosyn. Started Tikosyn but had provoked VT. - 48hr washout for Tikosyn complete - Begin amiodarone 200mg BID for a short time until patient can see his auto battery builder/hydraulic dredge operator - discussed with Dr. Flores - recommend decreasing to 200 mg daily and DC digoxin - Possible need for repeat ablation - Discussed the need for alcohol abstinence with patient due to Afib/HFrEF and history of Hepatitis C with ongoing LFT elevation. (2) HFrEF (heart failure with reduced ejection fraction) Comment: - EF normal on Echo - No signs of exacerbation - Was likely rate related previously. (3) COPD (chronic obstructive pulmonary disease) Comment: - COPD exacerbation symptoms since starting CPAP. - Steroids and antibiotics completed. - Continue inhaled - Severe COPD per records, has been started on home O2 and CPAP. - Follow up outpatient with Dr. Franco to discuss methods for CPAP adherence and possible BiPAP initiation - Nocturnal oxygen (4) Full code status Status: Acute Onset Date: 12/26/14 Code(s): Z78.9 - OTHER SPECIFIED HEALTH STATUS SNOMED Code(s): 339998912 Comment: (5) Hypertension Comment: - Normotensive - Continue metoprolol and losartan (6) Hypomagnesemia SNOMED Code(s): 222326552 Comment: - Low magnesium, replace IV and PO - Increase Immodium to slow down ileostomy output and hopefully slow decrease in Magnesium. (7) Hx of ulcerative colitis Comment: - Complete colectomy, no signs of disease activity. - Current Ileostomy. - Empties approxiately 6 times a day. Imodium to slow down ileostomy output. (8) DVT prophylaxis Comment: - Xarelto Status and Disposition: Inpatient. DC to home today
[2018-07-26 16:20] VITALS: BP 107/69
--- NOTE | 2018-07-27 20:53 | DS ---
CC: Dr. Heredia; Dr. Kennedy.* DISCHARGE SUMMARY: DATE OF ADMISSION: 07/20/18 DATE OF TRANSFER: 07/26/18 PROVIDER: Reina Campbell NP ATTENDING PHYSICIAN: Dr. Henriquez * (report dictated by iTn Campbell NP) PRIMARY CARE PROVIDER: Dr. Heredia FURNITURE CRATER: Dr. Kennedy. DISCHARGE DIAGNOSES: 1. Syncope, unclear etiology, suspect possible atrial fibrillation with rapid ventricular response. 2. Atrial fibrillation with rapid ventricular response. 3. Transaminitis. 4. Electrolyte abnormality. 5. Alcohol abuse. 6. Chronic obstructive pulmonary disease exacerbation. 7. Ventricular tachycardia. HISTORY OF PRESENT ILLNESS AND HOSPITAL COURSE: Please see history and physical by Dr. Kruger for full admission details, but in summary, this is a 57- year-old male with a past medical history of COPD, AFib, sick sinus syndrome, status post pacemaker insertion, ulcerative colitis, status post total colectomy with ileostomy with high output at baseline. He presented to the emergency department after sustaining a syncopal episode at home on 07/20/18. Mr. Yen reports he recently started approximately 2 weeks prior on CPAP for obstructive sleep apnea and reported he felt like he felt like he was struggling more to breathe after utilizing the CPAP. This had been going on for approximately 1 to 2 weeks where he states he intermittently used the CPAP. He states he currently had a cold and a cough brining up thick clear mucous over the past 2 weeks. He denied any fevers or chills. He states that he was in "coughing spell" prior to his syncopal episode. He reports he then got up to go to the kitchen to make dinner and suddenly felt shaky, lightheaded, next thing he remembers he woke up on the floor falling on the carpet. He was alone and it was unwitnessed with fall. He reports he then came to the emergency department for further evaluation. In the emergency department, he reported his breathing was much better, but still was noted to be slightly labored and was found to have expiratory wheezes. The patient was admitted to the hospitalist service for syncope and which he was admitted to the telemetry unit. He was also diagnosed with a COPD exacerbation and started on IV Solu- Medrol, azithromycin, and nebulizers. On admission, he was found to have a leukocytosis of 15.4. There were no signs of sepsis. He was also noted to have transaminitis with an AST of 72 and an ALT of 70, thought to be secondary to daily alcohol consumption. The patient was seen in consultation by career services officer, Dr. Spencer, who thought that his syncopal episode could possibly be related to atrial fibrillation. The pacemaker was interrogated and this functioning normally. Patient had been maintained on Xarelto and therefore pulmonary embolism was of low suspicion. The patient does have a history of severe cardiomyopathy with an ejection fraction of 20 to 25 in November 2017 with recovering ejection fraction to normal 55% by repeat echo during hospitalization. His syncopal episode was thought to be secondary to possibly AFib with RVR in which the patient was noted to have 3 episodes of rapid AFib on telemetry, where he converted with IV metoprolol. The prior hospitalist did speak to his primary career services officer. Who recommended rhythm control and the patient was started on Tikosyn, but had provoked ventricular tachycardia. This was discontinued and the patient underwent 48-hour washout for Tikosyn, then began amiodarone at 200 mg p.o. b.i.d. I spoke with career services officer, Dr. Flores, who recommended to decrease the patient's amiodarone to 200 mg p.o. daily and have the patient follow up with his primary care provider. He was also loaded with digoxin and has received 2 doses of this, however, Cardiology today recommended to discontinue this on discharge. Again, the patient has been maintained on just Xarelto. In regards to his COPD exacerbation, this has resolved and he has received 5 days of azithromycin and steroids. Today on discharge, the patient is on room air and noted to have clear lungs on exam with no noted shortness of breath or dyspnea. His leukocytosis has continued to be elevated between 13 and 18, however, this is thought to be steroids throughout hospitalization. In regards to the patient's transaminitis, the patient was counseled on alcohol abstinence due to his elevated liver enzymes as well as history of AFib. Patient was found to have low magnesium, which was replaced IV and p.o. and he has been sent home on recommendation for oral magnesium supplementation. He has also been started on Imodium to slowdown his ileostomy output as the patient reports high output at his baseline. DISCHARGE MEDICATIONS: 1. Albuterol sulfate 2 puffs INH 4 times a day p.r.n. 2. Ellipta 1 puff INH daily. 3. Symbicort 80/4.5 one inhalation daily. 4. Xarelto 20 mg p.o. daily. 5. Magnesium oxide 200 mg p.o. daily. 6. Metoprolol succinate XL 100 mg p.o. t.i.d. 7. We will start on potassium 50 mg p.o. daily. 8. Imodium 2 mg p.o. q.4 hours p.r.n. 9. Amiodarone 200 mg p.o. daily. The patient's new medications on discharge are amiodarone, Imodium, and magnesium supplementation. DISCHARGE PLAN: 1. Follow up with Dr. Allyn Heredia on 07/28/18 at 02:20 p.m. 2. Follow up with Dr. Kennedy, career services officer on 08/02/18 at 1 p.m. 3. The patient was referred to [facility]. 4. Patient may benefit from following up with a automatic screwmaker. It was discussed with the patient he could be referred to Dr. Franco via [facility] or discuss with his provider to be referred to [facility] automatic screwmaker. 5. Patient is stable for discharge to home. TIME SPENT: Approximately 60 minutes was spent on this discharge. REINA CAMPBELL NP [id number]/[facility] #: [id number] [facility]ICAL CENTERKali
== END 2018-07-26 16:20 | disposition home or self-care (01) | DRG 140 ==
LOC: ED 20:23 → MEDTELE 23:16
PROVIDERS: ADMIT Hospitalist; ATTEND Internal Medicine
DX: J44.1 Chronic obstructive pulmonary disease with (acute) exacerbation (principal); I50.22 Chronic systolic (congestive) heart failure; I47.2 Ventricular tachycardia; K51.90 Ulcerative colitis, unspecified, without complications; I48.0 Paroxysmal atrial fibrillation; I11.0 Hypertensive heart disease with heart failure; E83.42 Hypomagnesemia; G47.33 Obstructive sleep apnea (adult) (pediatric); R74.0 Nonspecific elevation of levels of transaminase and lactic acid dehydrogenase [LDH]; F10.10 Alcohol abuse, uncomplicated; I49.5 Sick sinus syndrome; Z93.2 Ileostomy status; Z86.19 Personal history of other infectious and parasitic diseases; Z79.01 Long term (current) use of anticoagulants; Z79.899 Other long term (current) drug therapy; Z88.1 Allergy status to other antibiotic agents; Z87.891 Personal history of nicotine dependence
CPT/HCPCS: 36415; 70450; 71046; 80048; 80053; 80162; 81003; 83735; 84450; 84460; 84484; 85025; 85610; 85730; 93005; 93306; 94640; 94660; 99283; A9270-GY; J1160; J2920; J2930; J3475; J3490; J7512

== ENCOUNTER 2018-08-07 12:34 | Inpatient (IN) | payer OTHER ==
[2018-08-07] MEDS ORDERED: methylPREDNISolone 125 MG* 2 ML VIAL IV ONE (13:01)
[2018-08-07] MEDS ORDERED: Albuterol/Ipratropium NEB.SOL* Albuterol 2.5 MG/Ipratropium 0.5 MG 3 ML INH ONE ×2 (13:01→14:59)
--- NOTE | 2018-08-07 13:01 | ED ---
Shortness of Breath - HPI Summary HPI Summary: The pt is a 57 y/o male with a hx of COPD presenting to [facility] c/o shortness of breath since 1.5 days ago. He notes a productive cough and chest tightness but denies sinus congestion.The pt took Prednisone a couple of weeks ago due to cardiac issues and is scheduled for a cardiac ablation surgery due to Afib. He does not use oxygen therapy at home. Home Medications Medication Instructions Recorded Confirmed Type Albuterol Sulfate [Ventolin Hfa] 2 inh INH QID PRN 07/20/18 07/20/18 History Budesonide/Formote 80/4.5(NF) 1 inh INH DAILY 07/20/18 07/20/18 History [Symbicort 80/4.5 (NF)] Losartan Potassium [Cozaar] 50 mg PO DAILY 07/20/18 07/20/18 History Magnesium Oxide [Mag-Oxide] 400 mg PO DAILY 07/20/18 07/20/18 History Metoprolol Succinate XL TAB* 100 mg PO TID 07/20/18 07/20/18 History Rivaroxaban TAB(*) [Xarelto 20 mg] 20 mg PO DAILY 07/20/18 07/20/18 History Umeclidinium [place] [Incruse 1 inh INH DAILY 07/20/18 07/20/18 History Ellipta] Amiodarone TAB* [Cordarone Tab*] 200 mg PO DAILY #10 tab 07/26/18 Rx Loperamide CAP* [Imodium CAP*] 2 mg PO Q4H PRN #30 cap 07/26/18 Rx - History of Current Complaint Chief Complaint: EDShortnessOfBreath Time Seen by Provider: 08/07/18 12:44 Hx Obtained From: Patient Onset/Duration: Lasting Days - 1.5 days, Still Present Timing: Constant Dyspnea At: Rest Alleviating Factors: Nothing Associated Signs & Symptoms: Cough (Productive) - Allergy/Home Medications Allergies/Adverse Reactions: Allergies Allergy/AdvReac Type Severity Reaction Status Date / Time ciprofloxacin Allergy Itching Verified 07/20/18 20:30 Home Medications: Home Medications Diltiazem TAB* [Cardizem 30 MG Tab*] 30 mg PO BID PRN 08/07/18 [History Confirmed 08/07/18] Torsemide TAB* [Demadex 20 MG*] 20 mg PO DAILY PRN 08/07/18 [History Confirmed 08/07/18] PMH/Surg Hx/FS Hx/Imm Hx Previously Healthy: No Endocrine/Hematology History: Denies: Hx Anticoagulant Therapy, Hx Diabetes, Hx Systemic Lupus Erythematosus, Hx Thyroid Disease Cardiovascular History: Reports: Hx Atrial Fibrillation - no anticoagulants used currently, Hx Auto Implanted Cardiovert Defib, Hx Hypertension, Hx Syncope , Other Cardiovascular Problems/Disorders - A FIB Denies: Hx Congestive Heart Failure, Hx Deep Vein Thrombosis, Hx Myocardial Infarction, Hx Pacemaker/ICD Respiratory History: Reports: Hx Asthma, Hx Chronic Obstructive Pulmonary Disease (COPD), Other Respiratory Problems/Disorders - PNA Denies: Hx Lung Cancer, Hx Pneumonia, Hx Pulmonary Embolism GI History: Reports: Hx Gastrointestinal Bleed, Hx Obstructive Bowel, Hx Ileostomy - colostomy 2012, Other GI Disorders - colostomy, ulcerative colitis Denies: Hx Gall Bladder Disease, Hx Ulcer, Hx Urosepsis History: Denies: Hx Kidney Stones, Hx Renal Disease Musculoskeletal History: Reports: Hx Orthopedic Injury - surgeries in both knees Denies: Hx Arthritis, Hx Rheumatoid Arthritis, Hx Osteoporosis Sensory History: Reports: Hx Contacts or Glasses Denies: Hx Hearing Aid, Other Sensory Impairments Opthamlomology History: Reports: Hx Contacts or Glasses Denies: Other Sensory Impairments Neurological History: Denies: Hx Dementia, Hx Migraine, Hx Seizures, Hx Transient Ischemic Attacks (TIA) Psychiatric History: Denies: Hx Anxiety, Hx Depression, Hx Schizophrenia, Hx Bipolar Disorder - Cancer History Cancer Type, Location and Year: None reported Hx Chemotherapy: No - Surgical History Surgery Procedure, Year, and Place: COLECTOMY FOR ULCERATIVE COLITIS AT [facility] - has ostomy now 12/2012; bilat knees for cartilage. Tonsils Hx Anesthesia Reactions: No - Immunization History Date of Influenza Vaccine: 06/07/16 Infectious Disease History: Yes Infectious Disease History: Reports: Hx Hepatitis - hep c Denies: Hx Clostridium Difficile, Hx Human Immunodeficiency Virus (HIV), Hx of Known/Suspected MRSA, Hx Shingles, Hx Tuberculosis, Hx Known/Suspected VRE, Hx Known/Suspected VRSA, History Other Infectious Disease, Traveled Outside the [place] in Last 30 Days - Family History Known Family History: Positive: Hypertension, Respiratory Disease, Other - Pt adopted - Social History Occupation: Unemployed Lives: Dormitory/Roommates - Friend Alcohol Use: Occasionally Alcohol Amount: was daily Hx Substance Use: No Substance Use Type: Reports: None Hx Tobacco Use: Yes Smoking Status (MU): Former Smoker Type: Cigarettes Amount Used/How Often: 1/2 ppd Length of Time of Smoking/Using Tobacco: 40 years Have You Smoked in the Last Year: Yes Review of Systems ENT: Other - Positive: Sinus congestion Positive: Shortness Of Breath, Cough All Other Systems Reviewed And Are Negative: Yes Physical Exam - Summary Physical Exam Summary: Appearance: The patient is well-nourished in no acute respiratory distress and in no acute pain. Skin: The skin is warm and dry and skin color reflects adequate perfusion. HEENT: The head is normocephalic and atraumatic. The pupils are equal and reactive. The conjunctivae are clear and without drainage. Nares are patent and without drainage. Mouth reveals moist mucous membranes and the throat is without erythema and exudate. The external ears are intact. The ear canals are patent and without drainage. The tympanic membranes are intact. Neck: The neck is supple with full range of motion and non-tender. There are no carotid bruits. There is no neck vein distension. Respiratory: Increased anterior-posterior diameter, Increased E to I ratio, Wheezing diffusely Cardiovascular: Decreased heart sounds. Heart is regular rate and rhythm. There is no murmur or rub auscultated. There is no peripheral edema and pulses are symmetrical and equal. Abdomen: The abdomen is soft and non-tender. There are normal bowel sounds heard in all four quadrants and there is no organomegaly palpated. Musculoskeletal: There is no back tenderness noted. Extremities are non-tender with full range of motion. There is good capillary refill. There is no peripheral edema or calf tenderness elicited. Neurological: Patient is alert and oriented to person, place and time. The patient has symmetrical motor strength in all four extremities. Cranial nerves are grossly intact. Deep tendon reflexes are symmetrical and equal in all four extremities. Psychiatric: The patient has an appropriate affect and does not exhibit any anxiety or depression. Triage Information Reviewed: Yes Vital Signs On Initial Exam: Initial Vitals Temp Pulse Resp BP Pulse Ox 97.5 F 61 16 90/48 99 08/07/18 12:46 08/07/18 12:46 08/07/18 12:46 08/07/18 12:46 08/07/18 12:46 Vital Signs Reviewed: Yes Diagnostics - Vital Signs Vital Signs Temp Pulse Resp BP Pulse Ox 08/07/18 12:46 97.5 F 61 16 90/48 99 - Laboratory Result Diagrams: 08/07/18 13:05 08/07/18 13:04 Lab Statement: Any lab studies that have been ordered have been reviewed, and results considered in the medical decision making process. - Radiology CXR Radiology Interpretation Completed By: Radiologist - IMPRESSION: #. Stigmata of obstructive lung disease. No acute pulmonary or cardiac process evident. The ED physician reviewed this radiology report. - EKG 13:26 Cardiac Rate: NL - 60 bpm EKG Rhythm: Sinus Rhythm Re-Evaluation - Re-Evaluation First Eval Re-Evaluation Time: 14:50 Change: Unchanged - The pt is still wheezing and has a prolonged E to I interval. He is barely speaking in in complete sentences. Course/Dx - Course Course Of Treatment: Mr. Yen has had a cough for several days, is beginning to use his nebulizers more frequently and is feeling short of breath. He has a history of COPD but does not use oxygen at home. He was given a nebulizer on the way here by ambulance and is given 2 DuoNeb's here in the department as well as Solu-Medrol. He is reporting subjective improvement. He presented with decreased breath sounds, expiratory wheezes and increased E/I and I can't detect any significant change after the treatment. Chest x-ray looks to me like he could have bronchopneumonia although it is being read by the radiologist as negative. He was given antibiotics here in the department as well as some fluids and the hospitalists were consulted for admission - Diagnoses Provider Diagnoses: COPD exacerbation, Bronchitis - Physician Notifications Discussed Care of Patient With: Preethi Mckeon - Hospitalist Time Discussed With Above Provider: 01:17 Instructed by Provider To: Admit As Inpatient - Critical Care Time Critical Care Time: 30-74 min Discharge - Sign-Out/Discharge Documenting (check all that apply): Patient Departure - Admit - Discharge Plan Condition: Stable Disposition: ADMITTED TO [facility] - Billing Disposition and Condition Condition: STABLE Disposition: Admitted to [facility] - Attestation Statements Document Initiated by Scribe: Yes Documenting Scribe: Autumn Rodríguez Provider For Whom Scribe is Documenting (Include Credential): Dr. Junior Alvarez MD Scribe Attestation: I, Autumn Rodríguez , scribed for Dr. Junior Alvarez MD on 08/07/18 at 2023. Scribe Documentation Reviewed: Yes Provider Attestation: The documentation as recorded by the scribe, Autumn Rodríguez accurately reflects the service I personally performed and the decisions made by me, Dr. Junior Alvarez MD
[2018-08-07 13:18] LABS: ABS Basophils 0.1 10^3/ul (0-0.2); ABS Eosinophils 0.4 10^3/ul (0-0.6); ABS Lymphocytes 0.8 10^3/ul (1.0-4.8); ABS Monocytes 1.2 10^3/ul (0-0.8); ABS Neutrophils 9.2 10^3/ul (1.5-7.7); ABS Nucleated RBC 0 10^3/ul; Eosinophil % 3.6 % (0-6); Hematocrit 42 % (42-52); Hemoglobin 13.9 g/dl (14.0-18.0); Lymphocyte % 6.8 % (25-47); Mean Corpuscular HGB Conc 34 g/dl (31-36); Mean Corpuscular Hemoglobin 33 pg (27-31); Mean Corpuscular Volume 99 fL (80-94); Mean Platelet Volume 7.4 fL (7.4-10.4); Nucleated Red Blood Cells % 0; Platelet Count 203 10^3/ul (150-450); Red Blood Count 4.21 10^6/ul (4.00-5.40); Red Cell Distribution Width 14 % (10.5-15); White Blood Count 11.8 10^3/ul (3.5-10.8)
[2018-08-07 13:24] LABS: INR 2.22 (0.77-1.02)
[2018-08-07 13:39] LABS: EGFR Non-African American 55.4 (>60)
--- OUTSIDE RECORDS SUMMARY | 2018-08-07 13:49 | XMS REPORT ---
:1960 External Reference #:[id number] Author Organization [facility] Address [address] [address] Phone [phone] Care Team Providers Name Role Phone Allyn Heredia MD Primary Care Physician Unavailable Payers Type Date Identification Numbers Payment Provider Subscriber Commercial Policy Number: [id number] [employer] Number: [id number] [address] PayID: [id number] [place] [address] Commercial Expires: 2016 PayID: [id number] [employer] Employee [address] [place] [address] Problems Date Description Provider Status Onset: 02/11/2018 Essential hypertension Franklin Henriquez M.D. Active Onset: 02/11/2018 Atrial fibrillation Franklin Henriquez M.D. Active Onset: 02/11/2018 Chronic obstructive pulmonary disease w Franklin Henriquez M.D. 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 Daily Caffeine Occasional coffee Exercise Type/Frequency Does not exercise Limited following heart surgery Allergies, Adverse Reactions, Alerts Date Description Reaction Status Severity Comments 11/12/2017 Cipro swelling and redness w/IV active Medications Medication Date Status Form Strength Qnty SIG Indications Ordering Provider Prednisone 06/07 Active Tablets 10mg 14tab 1 by mouth J44.1 Sanjuanita /2017 s every day MD Joan Losartan 05/10 Active Tablets 100mg 30tab 1 by mouth Josie S. Potassium /2017 s every day Willis N.P. Oxygen 05/10 Active Misc use 2l at R09.02 Josie S. /2018 night and Willis, with N.P. ambulation. please provide patient with portable oxygen concentrator Magnesium Active Tablets 400mg 1 by mouth Unknown [...] /0000 tablet by - mouth twice a Amlodipine Hx Tablets 2.5mg 1 by mouth Unknown Besylate /0000 every day - 02/15 Prednisone Hx Tablets 10mg take 50mg for Unknown /0000 5 days (ends - 02/17/18) 04/06 Valsartan Hx Tablets 80mg 1 by mouth Unknown /0000 every day - 05/06 Serevent Hx Aerosol 50mcg/Dos 1 puff twice Unknown Diskus /0000 e a day - 05/06 Flovent Diskus Hx Aerosol 250mcg/Bl 1 puff two Cannariato /0000 ist times per day , - as needed Allyn 05/06 MD Mitesh /2017 Prednisone 00 Hx Tablets 20mg Gordon, /0000 Hair Kramer MD 06/07 Vital Signs Date Vital Result Comment 06/07/2018 Height 66 inches 5'6" Weight 145.12 lb Heart Rate 72 /min BP Systolic Sitting 112 mmHg Rue regular cuff BP Diastolic Sitting 78 mmHg Rue regular cuff Respiratory Rate 12 /min O2 % BldC Oximetry 94 % BMI (Body Mass Index) 23.4 kg/m2 05/10/2018 Height 66 inches 5'6" Weight 143.38 [...] Information Procedures Date CPT Code Description Status 06/04/2018 68606 Polysomnography Sleep Staging 4+ Parameters Completed 04/26/2018 65802 Diffusing Capacity Completed 04/26/2018 66267 Plethysmography Determination Lung Volumes & Per Airway Completed Resist 04/26/2018 57543 Pulmonary Stress Testing, Inc Measurement Heart Rate, Completed Oximetry 04/26/2018 07821 Pulmonary Function><Bronchodil Completed 11/20/2017 92524 ECHO Transthorasic Realtime 2D W Doppler & Color Flow Completed Hosp 11/20/2017 28866 EKG, Interpretation Only Completed 11/20/2017 45591 Cardioversion Completed 11/06/2017 84170 EKG, Interpretation Only Completed 11/05/2017 Colonoscopy Completed 11/05/2017 46813 Endoscopy Upper GI Biopsy Completed 11/05/2017 63617 Ileoscopy Through Stoma Diagnostic Completed 11/05/2017 59806 EKG, Interpretation Only Completed 11/04/2017 27064 EKG, Interpretation Only Completed 11/03/2017 71751 EKG, Interpretation Only Completed 11/02/2017 27210 EKG, Interpretation Only Completed 11/01/2017 25945 Echocardiogram, Limited Study Completed 10/31/2017 33180 EKG, Interpretation Only Completed 08/28/2017 49483 ECHO Transthorasic Realtime 2D W Doppler & Color Flow Completed Hosp 08/28/2017 91736 EKG, Interpretation Only Completed 10/26/2015 83768 ECHO Transthorasic Realtime 2D W Doppler & Color Flow Completed Hosp Encounters Type Date Location Provider CPT E/M Dx Office Visit 06/07/2018 Pulmonology [place] [address] J44.1 1:30p Services Of [facility] G47.33 Office Visit 05/10/2018 9:00a [facility] Josie Pedro, 11468 R09.02 Services Of Director Of Integrated Marketing N.P. J45.909 I48.0 G47.9 Z87.891 J44.9 Office Visit 04/07/2018 9:30a [facility] [place] [address] J44.9 Services Of [facility] J45.909 G47.9 Z87.891 Office Visit 02/16/2018 9:30a [facility] [place] [address] I50.22 [facility] J44.9 J45.901 I48.0 I42.9 Office Visit 02/11/2018 11:09a [facility] Franklin Martinez, 68108 J44.1 Hospitalists Yobany I48.91 I10 Office Visit 02/10/2018 11:08a [facility], Mc Gutierrez, 10863 J44.1 Hospitalists N.P. I48.91 I10 Office Visit 11/21/2017 2:46p [facility], Morro Petemarissa, 07600 I48.0 Hospitalists Yobany I48.0 J44.9 J44.9 K51.00 I50.23 I50.23 Office Visit 11/20/2017 8:53a [facility] Of Vernon Grubbs, 49814 I48.0 Geremias Haywood, [facility] I50.9 Office Visit 11/20/2017 2:46p [facility], KIA Leal [address]100[address] I48.0 Hospitalists J44.9 K51.00 I50.23 Office Visit 11/12/2017 1:45p [facility] Of Annmarie Chavez M.D. 06365 I48.0 Director Of Integrated Marketing AT [facility] I49.5 R55 Z95.0 Office Visit 11/08/2017 11:15a [facility], Jodie German N.Jace 17059 J96.22 Hospitalists J69.0 J44.1 I48.91 Office Visit 11/07/2017 2:44p [facility] Of Annmarie Chavez M.D. 19515 I48.0 Director Of Integrated Marketing I42.9 Office Visit 11/07/2017 11:14a [facility], Jodie German N.Marlo. 76416 J96.22 Hospitalists J69.0 I48.91 Office Visit 11/06/2017 3:14p [facility] Xena Spencer, 97189 I48.91 MNellie Office Visit 11/06/2017 2:47p [place] [address] I48.0 J43.9 I42.9 D72.829 Office Visit 11/05/2017 2:00p [facility] Of Annmarie Chavez M.D. 06405 I48.0 Director Of Integrated Marketing I42.9 Office Visit 11/05/2017 11:14a [facility],pc Darryl Perez, 01832 J96.22 Hospitalists J69.0 J44.1 I48.91 Office Visit 11/04/2017 12:39p [facility] Annmarie Chavez M.D. 05205 I48.0 Director Of Integrated Marketing I42.9 Office Visit 11/04/2017 11:13a [facility],pc Darryl Perez, 16164 J96.22 Hospitalists J69.0 J44.1 I48.91 Office Visit 11/04/2017 7:00a [facility] [place] [address] Z87.19 Office Visit 11/03/2017 11:13a [facility] Darryl Blake 68442 J96.22 Hospitalists MD Ana J69.0 J44.1 I48.91 Office Visit 11/03/2017 2:17p [facility] Jeronimo Garcia, 47692 I49.5 Geremias MNellie Office Visit 11/02/2017 11:12a [facility]pc Darryl Perez, 59526 J96.22 Hospitalists J69.0 J44.1 I48.91 Office Visit 11/02/2017 2:19p [facility] Jeronimo Garcia, 37671 I48.91 Geremias Haywood I49.5 Office Visit 11/01/2017 4:37p [facility] Kush Dickens M.D. 80997 I49.5 J44.1 Office Visit 11/01/2017 11:11a [facility],[place] [address] J96.22 Hospitalists John Beauchamp J69.0 J44.1 I48.91 Office Visit 10/31/2017 11:10a [facility],[place] 62293 J96.22 Hospitalists John Beauchamp J69.0 J44.1 I48.91 Office Visit 10/31/2017 4:38p [facility] Kush Dickens M.D. 38160 I48.0 I49.5 J44.1 Office Visit 10/30/2017 4:33p [facility] Kush Dickens M.D. 60281 I48.0 J44.9 R94.31 Office Visit 10/30/2017 11:09a [facility] Guillermo Beauchamp D.O. 40974 J96.22 J69.0 J44.1 I48.91 Office Visit 10/14/2017 8:57a [facility], Preethi Mckeon, 56988 J44.1 Hospitalists MNellie Office Visit 09/29/2017 11:00a [facility], Eliza Kruger, 42012 J44.1 Hospitalists D.O. I48.0 Office Visit 09/28/2017 11:00a [facility], Eliza Kruger, 28834 J44.1 Hospitalists D.O. I48.0 Office Visit 09/27/2017 11:00a [facility], Preethi Mckeon, 32938 J44.1 Hospitalists Yobany I48.0 Office Visit 08/30/2017 8:02a [facility], Jodie German N.POsmani 19687 I48.91 Hospitalists K51.90 J44.1 Office Visit 08/29/2017 8:02a [facility], Jodie German N.P. 84048 I48.91 Hospitalists K51.90 J44.1 Office Visit 08/28/2017 8:00a [facility] Mc Gutierrez, 93887 I48.91 Assoc, Hospitalists N.P. K51.90 J44.1 Office Visit 08/28/2017 12:15p [facility] Xena Spencer, 66187 R07.9 Yobany M25.519 R00.0 I48.2 I34.0 F10.10 Z87.891 Office Visit 07/20/2017 7:00a [facility], Josie Pedro, 97177 J44.1 Hospitalists N.P. I48.0 Z87.891 Office Visit 07/19/2017 6:59a [facility], [place] [address] J44.1 Hospitalists I48.0 Z87.891 Office Visit 07/18/2017 6:58a [facility],pc Melina Maldonado, [employer]APP[employer] AD[employer]ER 46867 J44.1 Hospitalists I48.0 Z87.891 Office Visit 02/09/2017 10:55a [facility] Renny Jones, 31097 J44.1 Assoc,pc PA Hospitalists R00.0 R07.9 I48.0 Office Visit 02/08/2017 10:53a [facility] Jamia Jeremy, 22475 J44.1 Assoc,pc TAPPET ADJUSTER Hospitalists R00.0 R07.9 I48.0 Office Visit 11/18/2016 3:43p [facility], Preethi Mckeon, 51983 J18.1 Hospitalists Yobany J44.1 Office Visit 11/17/2016 3:43p [facility], Preethi Mckeon, 57239 J44.1 Hospitalists Yobany J18.1 Office Visit 09/30/2016 2:40p [facility]pc Jodie German N.P. 58648 J44.1 Hospitalists I10 Office Visit 09/29/2016 2:39p [facility]pc Jodie German N.P. 95664 J44.1 Hospitalists I10 B18.2 Office Visit 09/17/2016 7:13a [facility], Parviz Ruff M.D. 61836 J18.1 Hospitalists J44.9 I48.91 B19.20 Office Visit 09/16/2016 7:12a [facility],pc Parviz Ruff M.D. 11257 J18.1 Hospitalists J44.9 I48.91 B19.20 Office Visit 09/15/2016 7:11a [facility], Yahir Lubin, 21390 J18.1 Hospitalists Yobany,FACP J44.9 I48.91 Office Visit 09/14/2016 7:11a [facility], Mc Gutierrez, 08170 J44.9 Hospitalists N.P. J18.1 I48.91 B19.20 Office Visit 06/07/2016 12:35p [facility],pc Morro [place], 40155 J44.1 Hospitalists M.D. I48.0 Office Visit 06/06/2016 12:35p [facility],pc Morro Spears, 21034 J44.1 Hospitalists MOsmaniD. I48.0 Office Visit 10/27/2015 2:05p [facility] [place] [address] I48.91 M.D. I42.9 Office Visit 10/27/2015 12:35p [facility] Morro Spears, 17710 I48.91 Hospitalists M.D. R55 J44.9 K51.80 Office Visit 10/26/2015 4:07p [facility] [place] [address] I48.91 M.D. I42.9 F17.210 Office Visit 10/26/2015 12:35p [facility],pc Parviz Ruff M.D. 68362 I48.91 Hospitalists R55 J44.9 K51.80 Office Visit 03/21/2015 9:40a [facility] uJlia Watkins, N.P. 14320 V74.1 V70.3 V70.5 Office Visit 12/28/2014 10:30a [facility] [address] 486 Hospitalists 785.0 556.9 491.21 Office Visit 12/27/2014 10:29a [facility] [address] 486 Hospitalists 785.0 556.9 491.21 Office Visit 12/26/2014 10:29a [facility] Ass, [place] [address] 486 Hospitalists 785.0 556.9 491.21 Plan of Care Future Appointment(s):08/11/2018 9:00 am - Sanjuanita Franco MD at Pul[facility]ology And Sleep Services [facility]06/07/2018 - Sanjuanita Franco MDJ44.1 Chronic obstructive pulmonary disease w (acute) exacerbationNew Medication:Prednisone 10 mgFollow up:6 nsqxtB84.33 Obstructive sleep apnea (adult) (pediatric)
--- OUTSIDE RECORDS SUMMARY | 2018-08-07 13:49 | XMS REPORT ---
:1960 External Reference #:[id number] Author Organization [employer] Address [address] [place] [address] Phone [phone] Care Team Providers Name Role Phone Allyn Heredia MD Primary Care Physician Unavailable Payers Type Date Identification Numbers Payment Provider Subscriber Commercial Policy Number: [id number] [employer] Number: [id number] [address] PayID: [id number] [place] [address] Commercial Expires: 2016 PayID: [id number] [employer] [address] [place] [address] Problems Date Description Provider Status Onset: 02/11/2018 Essential hypertension Franklin Henriquez M.D. Active Onset: 02/11/2018 Atrial fibrillation Franklin Henriquez M.D. Active Onset: 02/11/2018 Chronic obstructive pulmonary disease w Franklin Henriquez M.D. 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 Cigarette Use Former Cigarette [...] Procedures Date CPT Code Description Status 06/04/2018 19560 Polysomnography Sleep Staging 4+ Parameters Completed 04/26/2018 30775 Diffusing Capacity Completed 04/26/2018 35772 Plethysmography Determination Lung Volumes & Per Airway Completed Resist 04/26/2018 68552 Pulmonary Stress Testing, Inc Measurement Heart Rate, Completed Oximetry 04/26/2018 69101 Pulmonary Function><Bronchodil Completed 11/20/2017 53925 ECHO Transthorasic Realtime 2D W Doppler & Color Flow Completed Hosp 11/20/2017 29320 EKG, Interpretation Only Completed 11/20/2017 81978 Cardioversion Completed 11/06/2017 80175 EKG, Interpretation Only Completed 11/05/2017 Colonoscopy Completed 11/05/2017 45690 Endoscopy Upper GI Biopsy Completed 11/05/2017 18733 Ileoscopy Through Stoma Diagnostic Completed 11/05/2017 00163 EKG, Interpretation Only Completed 11/04/2017 44603 EKG, Interpretation Only Completed 11/03/2017 54835 EKG, Interpretation Only Completed 11/02/2017 44490 EKG, Interpretation Only Completed 11/01/2017 13482 Echocardiogram, Limited Study Completed 10/31/2017 20894 EKG, Interpretation Only Completed 08/28/2017 74391 ECHO Transthorasic Realtime 2D W Doppler & Color Flow Completed Hosp 08/28/2017 35887 EKG, Interpretation Only Completed 10/26/2015 41487 ECHO Transthorasic Realtime 2D W Doppler & Color Flow Completed Hosp Encounters Type Date Location Provider CPT E/M Dx Office Visit 06/07/2018 Pul[facility] [place] [address] J44.1 1:30p Services Of [facility] G47.33 Office Visit 05/10/2018 9:00a [facility] Josie Pedro, 62214 R09.02 Services Of Product Director N.P. J45.909 I48.0 G47.9 Z87.891 J44.9 Office Visit 04/07/2018 9:30a [facility] [place] [address] J44.9 Services Of [facility] J45.909 G47.9 Z87.891 Office Visit 02/16/2018 9:30a [facility] [place] [address] I50.22 [facility] J44.9 J45.901 I48.0 I42.9 Office Visit 02/11/2018 [facility] Franklin Martinez, 47741 J44.1 Hospitalists Yobany I48.91 I10 Office Visit 02/10/2018 11:08a [facility], Mc Gutierrez, 00718 J44.1 Hospitalists N.P. I48.91 I10 Office Visit 11/21/2017 2:46p [facility], Morro Pet[place]ar[place], 91977 I48.0 Hospitalists Yobany I48.0 J44.9 J44.9 K51.00 I50.23 I50.23 Office Visit 11/20/2017 8:53a [facility] Of Vernon Grubbs, 34422 I48.0 Geremias Haywood, [facility] I50.9 Office Visit 11/20/2017 2:46p [facility], KIA Leal 76533 I48.0 Hospitalists J44.9 K51.00 I50.23 Office Visit 11/12/2017 1:45p [facility] Of Annmarie Chavez M.D. 57078 I48.0 Product Director AT [facility] I49.5 R55 Z95.0 Office Visit 11/08/2017 11:15a [facility], Jodie German N.Jace 35376 J96.22 Hospitalists J69.0 J44.1 I48.91 Office Visit 11/07/2017 2:44p [facility] Of Annmarie Chavez M.D. 70384 I48.0 Product Director I42.9 Office Visit 11/07/2017 11:14a [facility], Jodie German N.Marlo. 56448 J96.22 Hospitalists J69.0 I48.91 Office Visit 11/06/2017 3:14p [facility] Xena Spencer, 08041 I48.91 MNellie Office Visit 11/06/2017 2:47p [place] [address] I48.0 J43.9 I42.9 D72.829 Office Visit 11/05/2017 2:00p [facility] Of Annmarie Chavez M.D. 16325 I48.0 Product Director I42.9 Office Visit 11/05/2017 11:14a [facility],pc Darryl Perez, 50650 J96.22 Hospitalists J69.0 J44.1 I48.91 Office Visit 11/04/2017 12:39p [facility] Annmarie Chavez M.D. 17760 I48.0 Product Director I42.9 Office Visit 11/04/2017 11:13a [facility],pc Darryl Perez, 34820 J96.22 Hospitalists J69.0 J44.1 I48.91 Office Visit 11/04/2017 7:00a [facility] [place] [address] Z87.19 Office Visit 11/03/2017 11:13a [facility],pc Darryl Blake 65302 J96.22 Hospitalists MD Ana J69.0 J44.1 I48.91 Office Visit 11/03/2017 2:17p [facility] Jeronimo Garcia, 69604 I49.5 Geremias MNellie Office Visit 11/02/2017 11:12a [facility],pc Darryl Perez, 68319 J96.22 Hospitalists J69.0 J44.1 I48.91 Office Visit 11/02/2017 2:19p [facility] Jeronimo Garcia, 34355 I48.91 Geremias Haywood I49.5 Office Visit 11/01/2017 4:37p [facility] Kush Dickens M.D. 07788 I49.5 J44.1 Office Visit 11/01/2017 11:11a [facility],[place] 54366 J96.22 Hospitalists John Beauchamp J69.0 J44.1 I48.91 Office Visit 10/31/2017 11:10a [facility],deangelo Ji 21959 J96.22 Hospitalists John Beauchamp J69.0 J44.1 I48.91 Office Visit 10/31/2017 4:38p [facility] Kush Dickens M.D. 15293 I48.0 I49.5 J44.1 Office Visit 10/30/2017 4:33p [facility] Kush Dickens M.D. 90861 I48.0 J44.9 R94.31 Office Visit 10/30/2017 11:09a [facility] Guillermo Beauchamp D.O. 21121 J96.22 J69.0 J44.1 I48.91 Office Visit 10/14/2017 8:57a [facility], Preethi Mckeon, 98546 J44.1 Hospitalists MNellie Office Visit 09/29/2017 11:00a [facility], Eliza Kruger, 59456 J44.1 Hospitalists D.O. I48.0 Office Visit 09/28/2017 11:00a [facility], Eliza Kruger, 15776 J44.1 Hospitalists D.O. I48.0 Office Visit 09/27/2017 11:00a [facility], Preethi Mckeon, 39634 J44.1 Hospitalists Yobany I48.0 Office Visit 08/30/2017 8:02a [facility], Jodie German N.POsmani 03899 I48.91 Hospitalists K51.90 J44.1 Office Visit 08/29/2017 8:02a [facility], Jodie German N.P. 76984 I48.91 Hospitalists K51.90 J44.1 Office Visit 08/28/2017 8:00a [facility] Mc Gutierrez, 67417 I48.91 Assoc, Hospitalists N.P. K51.90 J44.1 Office Visit 08/28/2017 12:15p [facility] Xena Spencer, 27278 R07.9 Yobany M25.519 R00.0 I48.2 I34.0 F10.10 Z87.891 Office Visit 07/20/2017 7:00a [facility], Josie Pedro, 24603 J44.1 Hospitalists N.P. I48.0 Z87.891 Office Visit 07/19/2017 6:59a [facility], [place] [address] J44.1 Hospitalists I48.0 Z87.891 Office Visit 07/18/2017 6:58a [facility],pc Melina Maldonado, MEDICAL OFFICER 57471 J44.1 Hospitalists I48.0 Z87.891 Office Visit 02/09/2017 10:55a [facility] Renny Jones, 07457 J44.1 Assoc,pc PA Hospitalists R00.0 R07.9 I48.0 Office Visit 02/08/2017 10:53a [facility] Jamia Jeremy, 75543 J44.1 Assoc,pc MEDICAL OFFICER Hospitalists R00.0 R07.9 I48.0 Office Visit 11/18/2016 3:43p [facility], Preethi Mckeon, 78078 J18.1 Hospitalists Yobany J44.1 Office Visit 11/17/2016 3:43p [facility], Preethi Mckeon, 56474 J44.1 Hospitalists Yobany J18.1 Office Visit 09/30/2016 2:40p [facility],pc Jodie German N.P. 50146 J44.1 Hospitalists I10 Office Visit 09/29/2016 2:39p [facility],pc Jodie German N.P. 91006 J44.1 Hospitalists I10 B18.2 Office Visit 09/17/2016 7:13a [facility], Parviz Ruff M.D. 92993 J18.1 Hospitalists J44.9 I48.91 B19.20 Office Visit 09/16/2016 7:12a [facility],pc Parviz Ruff M.D. 85365 J18.1 Hospitalists J44.9 I48.91 B19.20 Office Visit 09/15/2016 7:11a [facility], Yahir Lubin, 12638 J18.1 Hospitalists Yobany,FACP J44.9 I48.91 Office Visit 09/14/2016 7:11a [facility], Mc Gutierrez, 27169 J44.9 Hospitalists N.P. J18.1 I48.91 B19.20 Office Visit 06/07/2016 12:35p [facility],pc Morro Petemarissa, 26876 J44.1 Hospitalists M.D. I48.0 Office Visit 06/06/2016 12:35p [facility],pc Morro Spears, 16122 J44.1 Hospitalists MOsmaniD. I48.0 Office Visit 10/27/2015 2:05p [facility] [place] [address] I48.91 M.D. I42.9 Office Visit 10/27/2015 12:35p [facility] Morro Spears, 46370 I48.91 Hospitalists M.D. R55 J44.9 K51.80 Office Visit 10/26/2015 4:07p [facility] [place] [address] I48.91 M.D. I42.9 F17.210 Office Visit 10/26/2015 12:35p [facility],pc Parviz Ruff M.D. 94624 I48.91 Hospitalists R55 J44.9 K51.80 Office Visit 03/21/2015 9:40a [facility] Julia Watkins, N.P. 72871 V74.1 V70.3 V70.5 Office Visit 12/28/2014 10:30a [facility] [address] 486 Hospitalists 785.0 556.9 491.21 Office Visit 12/27/2014 10:29a [facility] [address] 486 Hospitalists 785.0 556.9 491.21 Office Visit 12/26/2014 10:29a [facility] Ass, [place] [address] 486 Hospitalists 785.0 556.9 491.21 Plan of Care Future Appointment(s):08/11/2018 9:00 am - Sanjuanita Franco MD at Pulmonology And Sleep Services [facility]06/07/2018 - Sanjuanita Franco MDJ44.1 Chronic obstructive pulmonary disease w (acute) exacerbationNew Medication:Prednisone 10 mgFollow up:6 oibhjZ43.33 Obstructive sleep apnea (adult) (pediatric)
--- OUTSIDE RECORDS SUMMARY | 2018-08-07 13:49 | XMS REPORT ---
:1960 External Reference #:[id number] Author Organization [employer] Address [address] [facility] [address] [place] [address] Phone [phone] Care Team Providers Name Role Phone Allyn Heredia MD Primary Care Physician Unavailable Payers Type Date Identification Numbers Payment Provider Subscriber Commercial Policy Number: [id number] [employer] Number: [id number] [address] PayID: [id number] [place] [address] Commercial Expires: 2016 PayID: [id number] [employer] [address] [place] [address] Problems Date Description Provider Status Onset: 02/11/2018 Essential hypertension Franklin Henriquez M.D. Active Onset: 02/11/2018 Atrial fibrillation Franklin Henriquez M.D. Active Onset: 02/11/2018 Chronic obstructive pulmonary disease w Franklin Henriquez M.D. 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 Cigarette Use Former Cigarette [...] Procedures Date CPT Code Description Status 06/04/2018 45987 Polysomnography Sleep Staging 4+ Parameters Completed 04/26/2018 02119 Diffusing Capacity Completed 04/26/2018 99362 Plethysmography Determination Lung Volumes & Per Airway Completed Resist 04/26/2018 13092 Pulmonary Stress Testing, Inc Measurement Heart Rate, Completed Oximetry 04/26/2018 68662 Pulmonary Function><Bronchodil Completed 11/20/2017 35569 ECHO Transthorasic Realtime 2D W Doppler & Color Flow Completed Hosp 11/20/2017 95294 EKG, Interpretation Only Completed 11/20/2017 79509 Cardioversion Completed 11/06/2017 89336 EKG, Interpretation Only Completed 11/05/2017 Colonoscopy Completed 11/05/2017 83454 Endoscopy Upper GI Biopsy Completed 11/05/2017 98517 Ileoscopy Through Stoma Diagnostic Completed 11/05/2017 98552 EKG, Interpretation Only Completed 11/04/2017 66211 EKG, Interpretation Only Completed 11/03/2017 15963 EKG, Interpretation Only Completed 11/02/2017 80678 EKG, Interpretation Only Completed 11/01/2017 05622 Echocardiogram, Limited Study Completed 10/31/2017 88703 EKG, Interpretation Only Completed 08/28/2017 14990 ECHO Transthorasic Realtime 2D W Doppler & Color Flow Completed Hosp 08/28/2017 26521 EKG, Interpretation Only Completed 10/26/2015 92119 ECHO Transthorasic Realtime 2D W Doppler & Color Flow Completed Hosp Encounters Type Date Location Provider CPT E/M Dx Office Visit 06/07/2018 [facility] [place] [address] J44.1 1:30p Services Of [facility] G47.33 Office Visit 05/10/2018 9:00a [facility] Josie Pedro, 76082 R09.02 Services Of Service [facility] N.P. J45.909 I48.0 G47.9 Z87.891 J44.9 Office Visit 04/07/2018 9:30a [facility] [place] [address] J44.9 Services Of [facility] J45.909 G47.9 Z87.891 Office Visit 02/16/2018 9:30a [facility] [place] [address] I50.22 [facility] J44.9 J45.901 I48.0 I42.9 Office Visit 02/11/2018 11:09a [facility], Franklin Martinez, 03543 J44.1 Hospitalists Yobany I48.91 I10 Office Visit 02/10/2018 11:08a [facility], Mc Gutierrez, 82986 J44.1 Hospitalists N.P. I48.91 I10 Office Visit 11/21/2017 2:46p [facility], [place]ro [place], 20514 I48.0 Hospitalists Yobany I48.0 J44.9 J44.9 K51.00 I50.23 I50.23 Office Visit 11/20/2017 8:53a [facility] Of Vernon Grubbs, 86789 I48.0 Geremias Haywood, [facility], [facility] I50.9 Office Visit 11/20/2017 2:46p [facility], [place] Leal [address]71 I48.0 Hospitalists J44.9 K51.00 I50.23 Office Visit 11/12/2017 1:45p [facility] Of Annmarie Chavez M.D. 90867 I48.0 Service Coordinator [facility]ly Facility AT [facility] I49.5 R55 Z95.0 Office Visit 11/08/2017 11:15a [facility], Jodie German N.Jace 24406 J96.22 Hospitalists J69.0 J44.1 I48.91 Office Visit 11/07/2017 2:44p [facility] Of Annmarie Chavez M.D. 85054 I48.0 Service Coordinator [facility]ly Facility I42.9 Office Visit 11/07/2017 11:14a [facility], Jodie German N.Marlo. 89284 J96.22 Hospitalists J69.0 I48.91 Office Visit 11/06/2017 3:14p [facility] Xena Spencer, 56182 I48.91 MNellie Office Visit 11/06/2017 2:47p [place] [address] I48.0 J43.9 I42.9 D72.829 Office Visit 11/05/2017 2:00p [facility] Of Annmarie Chavez M.D. 20705 I48.0 Service Coord[facility] Facility I42.9 Office Visit 11/05/2017 11:14a [facility],pc Darryl Perez, 42511 J96.22 Hospitalists J69.0 J44.1 I48.91 Office Visit 11/04/2017 12:39p [facility] Annmarie Chavez M.D. 16747 I48.0 Service Coordinator [facility]ly Facility I42.9 Office Visit 11/04/2017 11:13a [facility],pc Darryl Perez, 28716 J96.22 Hospitalists J69.0 J44.1 I48.91 Office Visit 11/04/2017 7:00a [facility] [place] [address] Z87.19 Office Visit 11/03/2017 11:13a [facility],pc Darryl Blake 19699 J96.22 Hospitalists MD Ana J69.0 J44.1 I48.91 Office Visit 11/03/2017 2:17p [facility] Jeronimo Garcia, 65642 I49.5 Geremias MNellie Office Visit 11/02/2017 11:12a [facility],pc Darryl Perez, 69276 J96.22 Hospitalists J69.0 J44.1 I48.91 Office Visit 11/02/2017 2:19p [facility] Jeronimo Garcia, 75329 I48.91 Geremias Haywood I49.5 Office Visit 11/01/2017 4:37p [facility] Kush Dickens M.D. 88026 I49.5 J44.1 Office Visit 11/01/2017 11:11a [facility],[place] [address] J96.22 Hospitalists John Beauchamp J69.0 J44.1 I48.91 Office Visit 10/31/2017 11:10a [facility],deangelo Ji 90000 J96.22 Hospitalists John Beauchamp J69.0 J44.1 I48.91 Office Visit 10/31/2017 4:38p [facility] Kush Dickens M.D. 13503 I48.0 I49.5 J44.1 Office Visit 10/30/2017 4:33p [facility] Kush Dickens M.D. 05939 I48.0 J44.9 R94.31 Office Visit 10/30/2017 11:09a [facility] Guillermo Beauchamp D.O. 48729 J96.22 J69.0 J44.1 I48.91 Office Visit 10/14/2017 8:57a [facility], Preethi Mckeon, 94920 J44.1 Hospitalists MNellie Office Visit 09/29/2017 11:00a [facility], Eliza Kruger, 98152 J44.1 Hospitalists D.O. I48.0 Office Visit 09/28/2017 11:00a [facility], Eliza Kruger, 92147 J44.1 Hospitalists D.O. I48.0 Office Visit 09/27/2017 11:00a [facility], Preethi Mckeon, 65225 J44.1 Hospitalists Yobany I48.0 Office Visit 08/30/2017 8:02a [facility], Jodie German N.POsmani 29301 I48.91 Hospitalists K51.90 J44.1 Office Visit 08/29/2017 8:02a [facility], Jodie German N.P. 11781 I48.91 Hospitalists K51.90 J44.1 Office Visit 08/28/2017 8:00a [facility] Mc Gutierrez, 80188 I48.91 Assoc, Hospitalists N.P. K51.90 J44.1 Office Visit 08/28/2017 12:15p [facility] Xena Spencer, 14379 R07.9 Yobany M25.519 R00.0 I48.2 I34.0 F10.10 Z87.891 Office Visit 07/20/2017 7:00a [facility], Josie Pedro, 60250 J44.1 Hospitalists N.P. I48.0 Z87.891 Office Visit 07/19/2017 6:59a [facility], [place] [address] J44.1 Hospitalists I48.0 Z87.891 Office Visit 07/18/2017 6:58a [facility],pc Melina Maldonado, OPERATIONS EXAMINER 24104 J44.1 Hospitalists I48.0 Z87.891 Office Visit 02/09/2017 10:55a [facility] Renny Jones, 11418 J44.1 Assoc,pc PA Hospitalists R00.0 R07.9 I48.0 Office Visit 02/08/2017 10:53a [facility] Jamia Jeremy, 58593 J44.1 Assoc,pc OPERATIONS EXAMINER Hospitalists R00.0 R07.9 I48.0 Office Visit 11/18/2016 3:43p [facility], Preethi Mckeon, 64969 J18.1 Hospitalists Yobany J44.1 Office Visit 11/17/2016 3:43p [facility], Preethi Mckeon, 57380 J44.1 Hospitalists Yobany J18.1 Office Visit 09/30/2016 2:40p [facility],pc Jodie German N.P. 24392 J44.1 Hospitalists I10 Office Visit 09/29/2016 2:39p [facility],pc Jodie German N.P. 90209 J44.1 Hospitalists I10 B18.2 Office Visit 09/17/2016 7:13a [facility], Parviz Ruff M.D. 13105 J18.1 Hospitalists J44.9 I48.91 B19.20 Office Visit 09/16/2016 7:12a [facility],pc Parviz Ruff M.D. 33092 J18.1 Hospitalists J44.9 I48.91 B19.20 Office Visit 09/15/2016 7:11a [facility], Yahir Lubin, 19380 J18.1 Hospitalists Yobany,FACP J44.9 I48.91 Office Visit 09/14/2016 7:11a [facility], Mc Gutierrez, 18949 J44.9 Hospitalists N.P. J18.1 I48.91 B19.20 Office Visit 06/07/2016 12:35p [facility],pc [place], 76226 J44.1 Hospitalists M.D. I48.0 Office Visit 06/06/2016 12:35p [facility],pc Morro Spears, 39084 J44.1 Hospitalists MOsmaniD. I48.0 Office Visit 10/27/2015 2:05p [facility] [place] [address] I48.91 M.D. I42.9 Office Visit 10/27/2015 12:35p [facility] [place]ro Spe[place], 15509 I48.91 Hospitalists M.D. R55 J44.9 K51.80 Office Visit 10/26/2015 4:07p [facility] [place] [address] I48.91 M.D. I42.9 F17.210 Office Visit 10/26/2015 12:35p [facility],pc Parviz Ruff M.D. 28907 I48.91 Hospitalists R55 J44.9 K51.80 Office Visit 03/21/2015 9:40a [facility] Julia Watkins, N.P. 02455 V74.1 V70.3 V70.5 Office Visit 12/28/2014 10:30a [facility] [address] 486 Hospitalists 785.0 556.9 491.21 Office Visit 12/27/2014 10:29a [facility] [address] 486 Hospitalists 785.0 556.9 491.21 Office Visit 12/26/2014 10:29a [facility] Ass, [place] [address] 486 Hospitalists 785.0 556.9 491.21 Plan of Care Future Appointment(s):08/11/2018 9:00 am - Sanjuanita Franco MD at Pulmonology And Sleep Services [facility]06/07/2018 - Sanjuanita Franco MDJ44.1 Chronic obstructive pulmonary disease w (acute) exacerbationNew Medication:Prednisone 10 mgFollow up:6 qjimxV43.33 Obstructive sleep apnea (adult) (pediatric)
--- OUTSIDE RECORDS SUMMARY | 2018-08-07 13:49 | XMS REPORT ---
:1960 External Reference #:[id number] Author Organization [employer] Address [address] [place] [address] Phone [phone] Care Team Providers Name Role Phone Allyn Heredia MD Primary Care Physician Unavailable Payers Type Date Identification Numbers Payment Provider Subscriber Commercial Policy Number: [id number] [employer] Number: [id number] [address] PayID: [id number] [place] [address] Commercial Expires: 2016 PayID: [id number] [employer] [address] [place] [address] Problems Date Description Provider Status Onset: 02/11/2018 Essential hypertension Franklin Henriquez M.D. Active Onset: 02/11/2018 Atrial fibrillation Franklin Henriquez M.D. Active Onset: 02/11/2018 Chronic obstructive pulmonary disease w Franklin Henriquez M.D. 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 Cigarette Use Former Cigarette [...] Procedures Date CPT Code Description Status 06/04/2018 48102 Polysomnography Sleep Staging 4+ Parameters Completed 04/26/2018 07234 Diffusing Capacity Completed 04/26/2018 55895 Plethysmography Determination Lung Volumes & Per Airway Completed Resist 04/26/2018 85995 Pulmonary Stress Testing, Inc Measurement Heart Rate, Completed Oximetry 04/26/2018 27884 Pulmonary Function><Bronchodil Completed 11/20/2017 00815 ECHO Transthorasic Realtime 2D W Doppler & Color Flow Completed Hosp 11/20/2017 15289 EKG, Interpretation Only Completed 11/20/2017 54685 Cardioversion Completed 11/06/2017 41933 EKG, Interpretation Only Completed 11/05/2017 Colonoscopy Completed 11/05/2017 69995 Endoscopy Upper GI Biopsy Completed 11/05/2017 92559 Ileoscopy Through Stoma Diagnostic Completed 11/05/2017 34254 EKG, Interpretation Only Completed 11/04/2017 30470 EKG, Interpretation Only Completed 11/03/2017 82667 EKG, Interpretation Only Completed 11/02/2017 26043 EKG, Interpretation Only Completed 11/01/2017 96821 Echocardiogram, Limited Study Completed 10/31/2017 79631 EKG, Interpretation Only Completed 08/28/2017 58403 ECHO Transthorasic Realtime 2D W Doppler & Color Flow Completed Hosp 08/28/2017 89379 EKG, Interpretation Only Completed 10/26/2015 95104 ECHO Transthorasic Realtime 2D W Doppler & Color Flow Completed Hosp Encounters Type Date Location Provider CPT E/M Dx Office Visit 06/07/2018 [facility] [place] [address] J44.1 1:30p Services Of [facility] G47.33 Office Visit 05/10/2018 9:00a [facility] Josie Pedro, 41818 R09.02 Services Of [facility]. J45.909 I48.0 G47.9 Z87.891 J44.9 Office Visit 04/07/2018 9:30a [facility] [place] [address] J44.9 Services Of [facility] J45.909 G47.9 Z87.891 Office Visit 02/16/2018 9:30a [facility] [place] [address] I50.22 [facility] J44.9 J45.901 I48.0 I42.9 Office Visit 02/11/2018 11:09a [facility] Franklin Martinez, 10877 J44.1 Hospitalists Yobany I48.91 I10 Office Visit 02/10/2018 11:08a [facility], Mc Gutierrez, 74173 J44.1 Hospitalists N.P. I48.91 I10 Office Visit 11/21/2017 2:46p [facility], [place], 71292 I48.0 Hospitalists Yobany I48.0 J44.9 J44.9 K51.00 I50.23 I50.23 Office Visit 11/20/2017 8:53a [facility] Of Vernon Grubbs, 48897 I48.0 Geremias Haywood, [facility] I50.9 Office Visit 11/20/2017 2:46p [facility], [place] [address] I48.0 Hospitalists J44.9 K51.00 I50.23 Office Visit 11/12/2017 1:45p [facility] Of Annmarie Chavez M.D. 74406 I48.0 [facility] AT [facility] I49.5 R55 Z95.0 Office Visit 11/08/2017 11:15a [facility], Jodie German N.Jace 04717 J96.22 Hospitalists J69.0 J44.1 I48.91 Office Visit 11/07/2017 2:44p [facility] Of Annmarie Chavez M.D. 75498 I48.0 [facility] I42.9 Office Visit 11/07/2017 11:14a [facility], Jodie German N.Marlo. 45646 J96.22 Hospitalists J69.0 I48.91 Office Visit 11/06/2017 3:14p [facility] Xena Spencer, 96300 I48.91 MNellie Office Visit 11/06/2017 2:47p [place] [address] I48.0 J43.9 I42.9 D72.829 Office Visit 11/05/2017 2:00p [facility] Of Annmarie Chavez M.D. 77644 I48.0 [facility] I42.9 Office Visit 11/05/2017 11:14a [facility],pc Darryl Perez, 09913 J96.22 Hospitalists J69.0 J44.1 I48.91 Office Visit 11/04/2017 12:39p [facility] Annmarie Chavez M.D. 63761 I48.0 [facility] I42.9 Office Visit 11/04/2017 11:13a [facility],pc Darryl Perez, 33966 J96.22 Hospitalists J69.0 J44.1 I48.91 Office Visit 11/04/2017 7:00a [facility] [place] [address] Z87.19 Office Visit 11/03/2017 11:13a [facility],pc Darryl Blake 94888 J96.22 Hospitalists MD Ana J69.0 J44.1 I48.91 Office Visit 11/03/2017 2:17p [facility] Jeronimo Garcia, 59769 I49.5 Geremias MNellie Office Visit 11/02/2017 11:12a [facility],pc Darryl Perez, 27412 J96.22 Hospitalists J69.0 J44.1 I48.91 Office Visit 11/02/2017 2:19p [facility] Jeronimo Garcia, 03414 I48.91 Geremias Haywood I49.5 Office Visit 11/01/2017 4:37p [facility] Kush Dickens M.D. 07403 I49.5 J44.1 Office Visit 11/01/2017 11:11a [facility],[place] [address] J96.22 Hospitalists John Beauchamp J69.0 J44.1 I48.91 Office Visit 10/31/2017 11:10a [facility],[place] [address] J96.22 Hospitalists John Beauchamp J69.0 J44.1 I48.91 Office Visit 10/31/2017 4:38p [facility] Kush Dickens M.D. 93820 I48.0 I49.5 J44.1 Office Visit 10/30/2017 4:33p [facility] Kush Dickens M.D. 82814 I48.0 J44.9 R94.31 Office Visit 10/30/2017 11:09a [facility] Guillermo Beauchamp D.O. 93259 J96.22 J69.0 J44.1 I48.91 Office Visit 10/14/2017 8:57a [facility], Preethi Mckeon, 12536 J44.1 Hospitalists MNellie Office Visit 09/29/2017 11:00a [facility], Eliza Kruger, 69886 J44.1 Hospitalists D.O. I48.0 Office Visit 09/28/2017 11:00a [facility], Eliza Kruger, 15064 J44.1 Hospitalists D.O. I48.0 Office Visit 09/27/2017 11:00a [facility], Preethi Mckeon, 78442 J44.1 Hospitalists Yobany I48.0 Office Visit 08/30/2017 8:02a [facility], Jodie German N.POsmani 40081 I48.91 Hospitalists K51.90 J44.1 Office Visit 08/29/2017 8:02a [facility], Jodie German N.P. 29416 I48.91 Hospitalists K51.90 J44.1 Office Visit 08/28/2017 8:00a [facility] Mc Gutierrez, 85960 I48.91 Assoc, Hospitalists N.P. K51.90 J44.1 Office Visit 08/28/2017 12:15p [facility] Xena Spencer, 38393 R07.9 Yobany M25.519 R00.0 I48.2 I34.0 F10.10 Z87.891 Office Visit 07/20/2017 7:00a [facility], Josie Pedro, 76548 J44.1 Hospitalists N.P. I48.0 Z87.891 Office Visit 07/19/2017 6:59a [facility], [place] [address] J44.1 Hospitalists I48.0 Z87.891 Office Visit 07/18/2017 6:58a [facility],pc Melina Maldonado, SPECTROSCOPIST 72612 J44.1 Hospitalists I48.0 Z87.891 Office Visit 02/09/2017 10:55a [facility] Renny Jones, 89880 J44.1 Assoc,pc PA Hospitalists R00.0 R07.9 I48.0 Office Visit 02/08/2017 10:53a [facility] Jamia Jeremy, 75647 J44.1 Assoc,pc SPECTROSCOPIST Hospitalists R00.0 R07.9 I48.0 Office Visit 11/18/2016 3:43p [facility], Preethi Mckeon, 11506 J18.1 Hospitalists Yobany J44.1 Office Visit 11/17/2016 3:43p [facility], Preethi Mckeon, 79799 J44.1 Hospitalists Yobany J18.1 Office Visit 09/30/2016 2:40p [facility],pc Jodie German N.P. 05716 J44.1 Hospitalists I10 Office Visit 09/29/2016 2:39p [facility],pc Jodie German N.P. 08796 J44.1 Hospitalists I10 B18.2 Office Visit 09/17/2016 7:13a [facility], Parviz Ruff M.D. 18873 J18.1 Hospitalists J44.9 I48.91 B19.20 Office Visit 09/16/2016 7:12a [facility],pc Parviz Ruff M.D. 84042 J18.1 Hospitalists J44.9 I48.91 B19.20 Office Visit 09/15/2016 7:11a [facility], Yahir Lubin, 23140 J18.1 Hospitalists Yobany,FACP J44.9 I48.91 Office Visit 09/14/2016 7:11a [facility], Mc Gutierrez, 71777 J44.9 Hospitalists N.P. J18.1 I48.91 B19.20 Office Visit 06/07/2016 12:35p [facility],pc [place]ro [place], 72704 J44.1 Hospitalists M.D. I48.0 Office Visit 06/06/2016 12:35p [facility],pc Morro Spears, 09559 J44.1 Hospitalists MOsmaniD. I48.0 Office Visit 10/27/2015 2:05p [facility] [place] [address] I48.91 M.D. I42.9 Office Visit 10/27/2015 12:35p [facility] Morro Spears, 87429 I48.91 Hospitalists M.D. R55 J44.9 K51.80 Office Visit 10/26/2015 4:07p [facility] [place] [address] I48.91 M.D. I42.9 F17.210 Office Visit 10/26/2015 12:35p [facility],pc Parviz Ruff M.D. 97233 I48.91 Hospitalists R55 J44.9 K51.80 Office Visit 03/21/2015 9:40a [facility] Julia Watkins, N.P. 46829 V74.1 V70.3 V70.5 Office Visit 12/28/2014 10:30a [facility] [address] 486 Hospitalists 785.0 556.9 491.21 Office Visit 12/27/2014 10:29a [facility] [address] 486 Hospitalists 785.0 556.9 491.21 Office Visit 12/26/2014 10:29a [facility] Ass, [place] [address] 486 Hospitalists 785.0 556.9 491.21 Plan of Care Future Appointment(s):08/11/2018 9:00 am - Sanjuanita Franco MD at Pulmonology And Sleep Services [facility]06/07/2018 - Sanjuanita Franco MDJ44.1 Chronic obstructive pulmonary disease w (acute) exacerbationNew Medication:Prednisone 10 mgFollow up:6 piwbkX17.33 Obstructive sleep apnea (adult) (pediatric)
--- OUTSIDE RECORDS SUMMARY | 2018-08-07 13:49 | XMS REPORT ---
:1960 External Reference #:[id number] Author Organization [employer] Address [address] [place] [address] Phone [phone] Care Team Providers Name Role Phone Allyn Heredia MD Primary Care Physician Unavailable Payers Type Date Identification Numbers Payment Provider Subscriber Commercial Policy Number: [id number] [employer] Number: [id number] [address] PayID: [id number] [place] [address] Commercial Expires: 2016 PayID: [id number] [employer] Employee [address] [place] [address] Problems Date Description Provider Status Onset: 02/11/2018 Essential hypertension Franklin Henriquez M.D. Active Onset: 02/11/2018 Atrial fibrillation Franklin Henriquez M.D. Active Onset: 02/11/2018 Chronic obstructive pulmonary disease w Franklin Henriquez M.D. 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 Cigarette Use Former Cigarette [...] Procedures Date CPT Code Description Status 06/04/2018 05237 Polysomnography Sleep Staging 4+ Parameters Completed 04/26/2018 59786 Diffusing Capacity Completed 04/26/2018 32607 Plethysmography Determination Lung Volumes & Per Airway Completed Resist 04/26/2018 41508 Pulmonary Stress Testing, Inc Measurement Heart Rate, Completed Oximetry 04/26/2018 36300 Pulmonary Function><Bronchodil Completed 11/20/2017 67344 ECHO Transthorasic Realtime 2D W Doppler & Color Flow Completed Hosp 11/20/2017 66967 EKG, Interpretation Only Completed 11/20/2017 23875 Cardioversion Completed 11/06/2017 21645 EKG, Interpretation Only Completed 11/05/2017 Colonoscopy Completed 11/05/2017 42792 Endoscopy Upper GI Biopsy Completed 11/05/2017 86894 Ileoscopy Through Stoma Diagnostic Completed 11/05/2017 28205 EKG, Interpretation Only Completed 11/04/2017 10614 EKG, Interpretation Only Completed 11/03/2017 86028 EKG, Interpretation Only Completed 11/02/2017 35515 EKG, Interpretation Only Completed 11/01/2017 79010 Echocardiogram, Limited Study Completed 10/31/2017 14637 EKG, Interpretation Only Completed 08/28/2017 07720 ECHO Transthorasic Realtime 2D W Doppler & Color Flow Completed Hosp 08/28/2017 32231 EKG, Interpretation Only Completed 10/26/2015 89391 ECHO Transthorasic Realtime 2D W Doppler & Color Flow Completed Hosp Encounters Type Date Location Provider CPT E/M Dx Office Visit 06/07/2018 [facility] [place] [address] J44.1 1:30p Services Of [facility] G47.33 Office Visit 05/10/2018 9:00a [facility] Josie Pedro, 02239 R09.02 Services Of Build Technician N.P. J45.909 I48.0 G47.9 Z87.891 J44.9 Office Visit 04/07/2018 9:30a [facility] [place] [address] J44.9 Services [facility] J45.909 G47.9 Z87.891 Office Visit 02/16/2018 9:30a [facility] [place] [address] I50.22 [facility] J44.9 J45.901 I48.0 I42.9 Office Visit 02/11/2018 11:09a [facility], Franklin Martinez, 43840 J44.1 Hospitalists Yobany I48.91 I10 Office Visit 02/10/2018 11:08a [facility], Mc Gutierrez, 60655 J44.1 Hospitalists N.P. I48.91 I10 Office Visit 11/21/2017 2:46p [facility], Morro Pet[place]arissa, 61543 I48.0 Hospitalists Yobany I48.0 J44.9 J44.9 K51.00 I50.23 I50.23 Office Visit 11/20/2017 8:53a [facility] Of Vernon Grubbs, 09859 I48.0 Geremias Haywood, [facility] I50.9 Office Visit 11/20/2017 2:46p [facility], KIA Leal 65682 I48.0 Hospitalists J44.9 K51.00 I50.23 Office Visit 11/12/2017 1:45p [facility] Of Annmarie Chavez M.D. 55131 I48.0 Build Technician AT [facility] I49.5 R55 Z95.0 Office Visit 11/08/2017 11:15a [facility], Jodie German N.Jace 22135 J96.22 Hospitalists J69.0 J44.1 I48.91 Office Visit 11/07/2017 2:44p [facility] Of Annmarie Chavez M.D. 98386 I48.0 Build Technician I42.9 Office Visit 11/07/2017 11:14a [facility], Jodie German N.Marlo. 22746 J96.22 Hospitalists J69.0 I48.91 Office Visit 11/06/2017 3:14p [facility] Xena Spencer, 32549 I48.91 MNellie Office Visit 11/06/2017 2:47p [place] [address] I48.0 J43.9 I42.9 D72.829 Office Visit 11/05/2017 2:00p [facility] Of Annmarie Chavez M.D. 49946 I48.0 Build Technician I42.9 Office Visit 11/05/2017 11:14a [facility],pc Darryl Perez, 64425 J96.22 Hospitalists J69.0 J44.1 I48.91 Office Visit 11/04/2017 12:39p [facility] Annmarie Chavez M.D. 41326 I48.0 Build Technician I42.9 Office Visit 11/04/2017 11:13a [facility],pc Darryl Perez, 02873 J96.22 Hospitalists J69.0 J44.1 I48.91 Office Visit 11/04/2017 7:00a [facility] [place] [address] Z87.19 Office Visit 11/03/2017 11:13a [facility],pc Darryl Blake 17354 J96.22 Hospitalists MD Ana J69.0 J44.1 I48.91 Office Visit 11/03/2017 2:17p [facility] Jeronimo Garcia, 85335 I49.5 Geremias MNellie Office Visit 11/02/2017 11:12a [facility],pc Darryl Perez, 16406 J96.22 Hospitalists J69.0 J44.1 I48.91 Office Visit 11/02/2017 2:19p [facility] Jeronimo Garcia, 24770 I48.91 Geremias Haywood I49.5 Office Visit 11/01/2017 4:37p [facility] Kush Dickens M.D. 19092 I49.5 J44.1 Office Visit 11/01/2017 11:11a [facility],[place] [address] J96.22 Hospitalists John Beauchamp J69.0 J44.1 I48.91 Office Visit 10/31/2017 11:10a [facility],[place] [address] J96.22 Hospitalists John Beauchamp J69.0 J44.1 I48.91 Office Visit 10/31/2017 4:38p [facility] Kush Dickens M.D. 37109 I48.0 I49.5 J44.1 Office Visit 10/30/2017 4:33p [facility] Kush Dickens M.D. 45858 I48.0 J44.9 R94.31 Office Visit 10/30/2017 11:09a [facility] Guillermo Beauchamp D.O. 73346 J96.22 J69.0 J44.1 I48.91 Office Visit 10/14/2017 8:57a [facility], Preethi Mckeon, 51669 J44.1 Hospitalists MNellie Office Visit 09/29/2017 11:00a [facility], Eliza Kruger, 75238 J44.1 Hospitalists D.O. I48.0 Office Visit 09/28/2017 11:00a [facility], Eliza Kruger, 97306 J44.1 Hospitalists D.O. I48.0 Office Visit 09/27/2017 11:00a [facility], Preethi Mckeon, 68488 J44.1 Hospitalists Yobany I48.0 Office Visit 08/30/2017 8:02a [facility], Jodie German N.POsmani 96986 I48.91 Hospitalists K51.90 J44.1 Office Visit 08/29/2017 8:02a [facility], Jodie German N.P. 60498 I48.91 Hospitalists K51.90 J44.1 Office Visit 08/28/2017 8:00a [facility] Mc Gutierrez, 79150 I48.91 Assoc, Hospitalists N.P. K51.90 J44.1 Office Visit 08/28/2017 12:15p [facility] Xena Spencer, 31791 R07.9 Yobany M25.519 R00.0 I48.2 I34.0 F10.10 Z87.891 Office Visit 07/20/2017 7:00a [facility], Josie Pedro, 00444 J44.1 Hospitalists N.P. I48.0 Z87.891 Office Visit 07/19/2017 6:59a [facility], [place] [address] J44.1 Hospitalists I48.0 Z87.891 Office Visit 07/18/2017 6:58a [facility],pc Melina Maldonado, MANAGER MARKETING COMMUNICATIONS 11811 J44.1 Hospitalists I48.0 Z87.891 Office Visit 02/09/2017 10:55a [facility] Renny Jones, 44040 J44.1 Assoc,pc PA Hospitalists R00.0 R07.9 I48.0 Office Visit 02/08/2017 10:53a [facility] Jamia Jeremy, 87886 J44.1 Assoc,pc MANAGER MARKETING COMMUNICATIONS Hospitalists R00.0 R07.9 I48.0 Office Visit 11/18/2016 3:43p [facility], Preethi Mckeon, 03561 J18.1 Hospitalists Yobany J44.1 Office Visit 11/17/2016 3:43p [facility], Preethi Mckeon, 85731 J44.1 Hospitalists Yobany J18.1 Office Visit 09/30/2016 2:40p [facility],pc Jodie German N.P. 08197 J44.1 Hospitalists I10 Office Visit 09/29/2016 2:39p [facility],pc Jodie German N.P. 86168 J44.1 Hospitalists I10 B18.2 Office Visit 09/17/2016 7:13a [facility], Parviz Ruff M.D. 40969 J18.1 Hospitalists J44.9 I48.91 B19.20 Office Visit 09/16/2016 7:12a [facility],pc Parviz Ruff M.D. 96398 J18.1 Hospitalists J44.9 I48.91 B19.20 Office Visit 09/15/2016 7:11a [facility], Yahir Lubin, 68992 J18.1 Hospitalists Yobany,FACP J44.9 I48.91 Office Visit 09/14/2016 7:11a [facility], Mc Gutierrez, 30861 J44.9 Hospitalists N.P. J18.1 I48.91 B19.20 Office Visit 06/07/2016 12:35p [facility],pc Morro [place], 74410 J44.1 Hospitalists M.D. I48.0 Office Visit 06/06/2016 12:35p [facility],pc Morro Spears, 81154 J44.1 Hospitalists MOsmaniD. I48.0 Office Visit 10/27/2015 2:05p [facility] [place] [address] I48.91 M.D. I42.9 Office Visit 10/27/2015 12:35p [facility] Morro Spears, 28503 I48.91 Hospitalists M.D. R55 J44.9 K51.80 Office Visit 10/26/2015 4:07p [facility] [place] [address] I48.91 M.D. I42.9 F17.210 Office Visit 10/26/2015 12:35p [facility],pc Parviz Ruff M.D. 63423 I48.91 Hospitalists R55 J44.9 K51.80 Office Visit 03/21/2015 9:40a [facility] Julia Watkins, N.P. 63245 V74.1 V70.3 V70.5 Office Visit 12/28/2014 10:30a [facility] [address] 486 Hospitalists 785.0 556.9 491.21 Office Visit 12/27/2014 10:29a [facility] [address] 486 Hospitalists 785.0 556.9 491.21 Office Visit 12/26/2014 10:29a [facility] Ass, [place] [address] 486 Hospitalists 785.0 556.9 491.21 Plan of Care Future Appointment(s):08/11/2018 9:00 am - Sanjuanita Franco MD at [facility] Services [facility]06/07/2018 - Sanjuanita Franco MDJ44.1 Chronic obstructive pulmonary disease w (acute) exacerbationNew Medication:Prednisone 10 mgFollow up:6 fuqkcM91.33 Obstructive sleep apnea (adult) (pediatric)
--- OUTSIDE RECORDS SUMMARY | 2018-08-07 13:49 | XMS REPORT ---
:1960 External Reference #:[id number] Author Organization [employer] Address [address] [place] [address] Phone [phone] Care Team Providers Name Role Phone Allyn Heredia MD Primary Care Physician Unavailable Payers Type Date Identification Numbers Payment Provider Subscriber Commercial Policy Number: [id number] [employer] Number: [id number] [address] PayID: [id number] [place] [address] Commercial Expires: 2016 PayID: [id number] [employer] [address] [place] [address] Problems Date Description Provider Status Onset: 02/11/2018 Essential hypertension Franklin Henriquez M.D. Active Onset: 02/11/2018 Atrial fibrillation Franklin Henriquez M.D. Active Onset: 02/11/2018 Chronic obstructive pulmonary disease w Franklin Henriquez M.D. 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 Cigarette Use Former Cigarette [...] Procedures Date CPT Code Description Status 06/04/2018 61301 Polysomnography Sleep Staging 4+ Parameters Completed 04/26/2018 28282 Diffusing Capacity Completed 04/26/2018 12810 Plethysmography Determination Lung Volumes & Per Airway Completed Resist 04/26/2018 19567 Pulmonary Stress Testing, Inc Measurement Heart Rate, Completed Oximetry 04/26/2018 15252 Pulmonary Function><Bronchodil Completed 11/20/2017 83633 ECHO Transthorasic Realtime 2D W Doppler & Color Flow Completed Hosp 11/20/2017 74461 EKG, Interpretation Only Completed 11/20/2017 33439 Cardioversion Completed 11/06/2017 64121 EKG, Interpretation Only Completed 11/05/2017 Colonoscopy Completed 11/05/2017 37702 Endoscopy Upper GI Biopsy Completed 11/05/2017 63636 Ileoscopy Through Stoma Diagnostic Completed 11/05/2017 52083 EKG, Interpretation Only Completed 11/04/2017 28448 EKG, Interpretation Only Completed 11/03/2017 81830 EKG, Interpretation Only Completed 11/02/2017 68695 EKG, Interpretation Only Completed 11/01/2017 83444 Echocardiogram, Limited Study Completed 10/31/2017 57578 EKG, Interpretation Only Completed 08/28/2017 75744 ECHO Transthorasic Realtime 2D W Doppler & Color Flow Completed Hosp 08/28/2017 91243 EKG, Interpretation Only Completed 10/26/2015 88442 ECHO Transthorasic Realtime 2D W Doppler & Color Flow Completed Hosp Encounters Type Date Location Provider CPT E/M Dx Office Visit 06/07/2018 [facility] [place] [address] J44.1 1:30p Services Of [facility] G47.33 Office Visit 05/10/2018 9:00a [facility] Josie Pedro, 45958 R09.02 Services Of Final Expense Agent N.P. J45.909 I48.0 G47.9 Z87.891 J44.9 Office Visit 04/07/2018 9:30a [facility] [place] [address] J44.9 Services [facility] J45.909 G47.9 Z87.891 Office Visit 02/16/2018 9:30a [facility] [place] [address] I50.22 [facility] J44.9 J45.901 I48.0 I42.9 Office Visit 02/11/2018 11:09a [facility], Franklin Martinez, 42147 J44.1 Hospitalists Yobany I48.91 I10 Office Visit 02/10/2018 11:08a [facility], Mc Gutierrez, 93410 J44.1 Hospitalists N.P. I48.91 I10 Office Visit 11/21/2017 2:46p [facility], Morro [place], 83916 I48.0 Hospitalists Yobany I48.0 J44.9 J44.9 K51.00 I50.23 I50.23 Office Visit 11/20/2017 8:53a [facility] Of Vernon Grubbs, 28838 I48.0 Geremias Haywood, [facility] I50.9 Office Visit 11/20/2017 2:46p [facility], [place] Leal 57358 I48.0 Hospitalists J44.9 K51.00 I50.23 Office Visit 11/12/2017 1:45p [facility] Of Annmarie Chavez M.D. 22514 I48.0 Final Expense Agent AT [facility] I49.5 R55 Z95.0 Office Visit 11/08/2017 11:15a [facility], Jodie German N.Jace 97368 J96.22 Hospitalists J69.0 J44.1 I48.91 Office Visit 11/07/2017 2:44p [facility] Of Annmarie Chavez M.D. 01748 I48.0 Final Expense Agent I42.9 Office Visit 11/07/2017 11:14a [facility], Jodie German N.Marlo. 33134 J96.22 Hospitalists J69.0 I48.91 Office Visit 11/06/2017 3:14p [facility] Xena Spencer, 36718 I48.91 MNellie Office Visit 11/06/2017 2:47p [place] [address] I48.0 J43.9 I42.9 D72.829 Office Visit 11/05/2017 2:00p [facility] Of Annmarie Chavez M.D. 53073 I48.0 Final Expense Agent I42.9 Office Visit 11/05/2017 11:14a [facility],pc Darryl Perez, 99799 J96.22 Hospitalists J69.0 J44.1 I48.91 Office Visit 11/04/2017 12:39p [facility] Annmarie Chavez M.D. 29229 I48.0 Final Expense Agent I42.9 Office Visit 11/04/2017 11:13a [facility],pc Darryl Perez, 93751 J96.22 Hospitalists J69.0 J44.1 I48.91 Office Visit 11/04/2017 7:00a [facility] [place] [address] Z87.19 Office Visit 11/03/2017 11:13a [facility],pc Darryl Blake 51445 J96.22 Hospitalists MD Ana J69.0 J44.1 I48.91 Office Visit 11/03/2017 2:17p [facility] Jeronimo Garcia, 18157 I49.5 Geremias MNellie Office Visit 11/02/2017 11:12a [facility],pc Darryl Perez, 73244 J96.22 Hospitalists J69.0 J44.1 I48.91 Office Visit 11/02/2017 2:19p [facility] Jeronimo Garcia, 59250 I48.91 Geremias Haywood I49.5 Office Visit 11/01/2017 4:37p [facility] Kush Dickens M.D. 47661 I49.5 J44.1 Office Visit 11/01/2017 11:11a [facility],[place] [address] J96.22 Hospitalists John Beauchamp J69.0 J44.1 I48.91 Office Visit 10/31/2017 11:10a [facility],[place] [address] J96.22 Hospitalists John Beauchamp J69.0 J44.1 I48.91 Office Visit 10/31/2017 4:38p [facility] Kush Dickens M.D. 77610 I48.0 I49.5 J44.1 Office Visit 10/30/2017 4:33p [facility] Kush Dickens M.D. 14825 I48.0 J44.9 R94.31 Office Visit 10/30/2017 11:09a [facility] Guillermo Beauchamp D.O. 55506 J96.22 J69.0 J44.1 I48.91 Office Visit 10/14/2017 8:57a [facility], Preethi Mckeon, 53554 J44.1 Hospitalists MNellie Office Visit 09/29/2017 11:00a [facility], Eliza Kruger, 68762 J44.1 Hospitalists D.O. I48.0 Office Visit 09/28/2017 11:00a [facility], Eliza Kruger, 99231 J44.1 Hospitalists D.O. I48.0 Office Visit 09/27/2017 11:00a [facility], Preethi Mckeon, 16343 J44.1 Hospitalists Yobany I48.0 Office Visit 08/30/2017 8:02a [facility], Jodie German N.POsmani 66547 I48.91 Hospitalists K51.90 J44.1 Office Visit 08/29/2017 8:02a [facility], Jodie German N.P. 82149 I48.91 Hospitalists K51.90 J44.1 Office Visit 08/28/2017 8:00a [facility] Mc Gutierrez, 15579 I48.91 Assoc, Hospitalists N.P. K51.90 J44.1 Office Visit 08/28/2017 12:15p [facility] Xena Spencer, 34569 R07.9 Yobany M25.519 R00.0 I48.2 I34.0 F10.10 Z87.891 Office Visit 07/20/2017 7:00a [facility], Josie Pedro, 77872 J44.1 Hospitalists N.P. I48.0 Z87.891 Office Visit 07/19/2017 6:59a [facility], [place] [address] J44.1 Hospitalists I48.0 Z87.891 Office Visit 07/18/2017 6:58a [facility],pc Melina Maldonado, DETENTION SERGEANT 92288 J44.1 Hospitalists I48.0 Z87.891 Office Visit 02/09/2017 10:55a [facility] Renny Jones, 26284 J44.1 Assoc,pc PA Hospitalists R00.0 R07.9 I48.0 Office Visit 02/08/2017 10:53a [facility] Jamia Jeremy, 75109 J44.1 Assoc,pc DETENTION SERGEANT Hospitalists R00.0 R07.9 I48.0 Office Visit 11/18/2016 3:43p [facility], Preethi Mckeon, 83452 J18.1 Hospitalists Yobany J44.1 Office Visit 11/17/2016 3:43p [facility], Preethi Mckeon, 58722 J44.1 Hospitalists Yobany J18.1 Office Visit 09/30/2016 2:40p [facility],pc Jodie German N.P. 72388 J44.1 Hospitalists I10 Office Visit 09/29/2016 2:39p [facility],pc Jodie German N.P. 56814 J44.1 Hospitalists I10 B18.2 Office Visit 09/17/2016 7:13a [facility], Parviz Ruff M.D. 60848 J18.1 Hospitalists J44.9 I48.91 B19.20 Office Visit 09/16/2016 7:12a [facility],pc Parviz Ruff M.D. 82824 J18.1 Hospitalists J44.9 I48.91 B19.20 Office Visit 09/15/2016 7:11a [facility], Yahir Lubin, 01882 J18.1 Hospitalists Yobany,FACP J44.9 I48.91 Office Visit 09/14/2016 7:11a [facility], Mc Gutierrez, 71398 J44.9 Hospitalists N.P. J18.1 I48.91 B19.20 Office Visit 06/07/2016 12:35p [facility],pc Morro Petemarissa, 09670 J44.1 Hospitalists M.D. I48.0 Office Visit 06/06/2016 12:35p [facility],pc Morro Spears, 04120 J44.1 Hospitalists MOsmaniD. I48.0 Office Visit 10/27/2015 2:05p [facility] [place] [address] I48.91 M.D. I42.9 Office Visit 10/27/2015 12:35p [facility] Morro Spears, 89125 I48.91 Hospitalists M.D. R55 J44.9 K51.80 Office Visit 10/26/2015 4:07p [facility] [place] [address] I48.91 M.D. I42.9 F17.210 Office Visit 10/26/2015 12:35p [facility],pc Parviz Ruff M.D. 05820 I48.91 Hospitalists R55 J44.9 K51.80 Office Visit 03/21/2015 9:40a [facility] Julia Watkins, N.P. 35982 V74.1 V70.3 V70.5 Office Visit 12/28/2014 10:30a [facility] [address] 486 Hospitalists 785.0 556.9 491.21 Office Visit 12/27/2014 10:29a [facility] [address] 486 Hospitalists 785.0 556.9 491.21 Office Visit 12/26/2014 10:29a [facility], [place] [address] 486 Hospitalists 785.0 556.9 491.21 Plan of Care Future Appointment(s):08/11/2018 9:00 am - Sanjuanita Franco MD at [facility]06/07/2018 - Sanjuanita Franco MDJ44.1 Chronic obstructive pulmonary disease w (acute) exacerbationNew Medication:Prednisone 10 mgFollow up:6 gnaduZ14.33 Obstructive sleep apnea (adult) (pediatric)
[2018-08-07] MEDS ORDERED: Azithromycin IV(*) 500 MG in NS 0.9% 250 ML* 250 ML IVPB ONE (15:01)
[2018-08-07] MEDS ORDERED: cefTRIAXone(*) 1 GM in NS 0.9% 50 ML* 50 ML IVPB ONE (15:01)
[2018-08-07] MEDS ORDERED: Ondansetron INJ* 2 MG/ML VIAL IV PRN (17:24)
[2018-08-07] MEDS ORDERED: Acetaminophen TAB* 325 MG PO PRN (17:24)
[2018-08-07] MEDS ORDERED: NS 0.9% 500 ML* 500 ML IV ONE (17:43)
[2018-08-07] MEDS ORDERED: NS 0.9% 1000 ML* 1,000 ML IV SCH (17:45)
[2018-08-07] MEDS: Albuterol/Ipratropium NEB.SOL* Albuterol 2.5 MG/Ipratropium 0.5 MG 3 ML INH PRN (18:16)
[2018-08-07] MEDS: Albuterol/Ipratropium NEB.SOL* Albuterol 2.5 MG/Ipratropium 0.5 MG 3 ML INH SCH (18:53)
[2018-08-07] MEDS: Metoprolol Succinate XL TAB* 50 MG PO SCH (20:09)
[2018-08-07] MEDS ORDERED: Metoprolol Succinate XL TAB* 50 MG PO SCH (21:00)
--- NOTE | 2018-08-07 23:48 | HP ---
CC: Dr. Heredia * [facility] MEDICINE HISTORY AND PHYSICAL: DATE OF ADMISSION: 08/07/18 PRIMARY CARE PHYSICIAN: Dr. Heredia. ATTENDING PHYSICIAN: Dr. Preethi Mckeon * (dictation provided by Jodie German NP ). CHIEF COMPLAINT: Shortness of breath and cough. HISTORY OF PRESENT ILLNESS: Mr. Yen is a 57-year-old male with a past medical history of atrial fibrillation with rapid ventricular response with sick sinus syndrome and pacemaker, COPD, and ulcerative colitis with colectomy and ileostomy, who presents today to the hospital with concern for cough and shortness of breath. Mr. Yen states that he was most recently discharged from our hospital on 07/27/18, at which time he was treated for atrial fibrillation with rapid ventricular response with the ultimate initiation of amiodarone. He states that about 2 to 3 days after that he went to [facility] for followup and was found to have a heart rate of approximately 180 and he was transported via ambulance to [facility] in [place]. The patient states he spent about 4 to 5 days at [facility] due to the rapid atrial fibrillation. He reports continuing to be on amiodarone, but that Dr. Heredia had added diltiazem p.r.n. as well as torsemide p.r.n. for tachycardia and edema respectively. Mr. Yen states that he was doing okay until about a day and half ago when he developed cough and worsening shortness of breath. He has had significant wheezing. Today, he presented to [facility] for evaluation where he was unable to get out of the car due to his shortness of breath and required wheelchair to go into the facility. On evaluation there, they assessed him in the emergent care here at our facility and he was transported here via EMS. In the emergency room, Mr. Yen had labs, which were essentially unremarkable except for a mild elevation in his creatinine to 1.33. His vital signs showed that he is sating well at 99% on 2 L nasal cannula. His blood pressure is running about 90 to 100. He is afebrile. Chest x-ray shows no acute process. PAST MEDICAL HISTORY: 1. COPD. 2. Atrial fibrillation with rapid ventricular response. 3. Sick sinus syndrome with pacemaker. 4. History of V-tach and unable to tolerate Tikosyn. 5. Ulcerative colitis with colectomy and ileostomy. 6. History of YAMEL, on CPAP. MEDICATIONS: 1. Torsemide 20 mg p.o. daily p.r.n. edema. 2. Diltiazem 30 mg p.o. b.i.d. p.r.n. tachycardia. 3. Albuterol inhaler p.r.n. 4. Amiodarone 200 mg p.o. daily. 5. Incruse Ellipta 1 inhalation daily. 6. Rivaroxaban 20 mg p.o. daily. 7. Metoprolol succinate 150 mg p.o. b.i.d. 8. Magnesium oxide 400 mg p.o. daily. 9. Losartan 50 mg p.o. daily. 10. Loperamide 2 mg p.o. q.4 hours p.r.n. 11. Symbicort 80/4.5 one inhalation daily. ALLERGIES: To CIPROFLOXACIN. FAMILY HISTORY: The patient's mother related to MVA and dad in the [place] War. SOCIAL HISTORY: The patient is a former smoker, quit about 2 years ago. He states he drinks about 2 alcoholic beverages a day. He denies any history of alcohol withdrawal symptoms. 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 REVIEW OF SYSTEMS: A 14-point review of systems was completed with Mr. Yen and all those not mentioned above were negative. PHYSICAL EXAMINATION GENERAL: Mr. Yen is sitting up in the bed. He is in no acute distress. VITAL SIGNS: Temperature 97.5, pulse rate 76, respiratory rate 19, O2 saturation 99% on 2 L nasal cannula, blood pressure 90/53. LUNGS: Show wheezing throughout. There is no accessory muscle use. HEART: S1, S2. No murmur, rub, or gallop and regular. ABDOMEN: Soft, nontender with bowel sounds positive x4. EXTREMITIES: No cyanosis or edema. NEURO: He is alert. He is oriented x3. He moves all extremities equally. There is no facial asymmetry or focal weakness. Extraocular movements are intact. SKIN: Intact. DIAGNOSTIC STUDIES/LAB DATA: Sodium 134, potassium 4.4, chloride 100, serum bicarbonate 31, BUN 16, creatinine 1.33, glucose 98, lactic acid 1.1. Troponin 0.00. CRP 1.69. BNP 138. WBC 11.8, hemoglobin 13.9, hematocrit 42, platelet count 203. Again, chest x-ray shows no acute process. EKG shows A-paced rhythm with a heart rate about 60. ASSESSMENT AND PLAN: Mr. Yen is a 57-year-old male with past medical history of chronic obstructive pulmonary disease and atrial fibrillation with pacemaker, who presents today to the hospital with concern for cough and shortness of breath, found to have a likely chronic obstructive pulmonary disease exacerbation. Plan is for observation in the hospital for the following : 1. Chronic obstructive pulmonary disease exacerbation. The patient has been given Solu-Medrol in the emergency room as well as nebulizers and he states he is feeling slightly better, although he remains quite short of breath. He requires observation in the hospital due to his respiratory distress and new oxygen requirement of 2 L nasal cannula. Plans will be to continue Solu-Medrol and albuterol nebulizers as needed. He will have oxygen titrated as needed and we will continue doxycycline 100 mg p.o. b.i.d. given the interaction of azithromycin with amiodarone. The patient shows no evidence of pneumonia via chest x-ray, he has no fever, and CRP is normal. 2. Atrial fibrillation. The patient is rate controlled with an A-paced rhythm. Plan to continue amiodarone, metoprolol, and Xarelto. 3. Hypertension. Continue losartan and metoprolol. 4. Code status is full code. TIME SPENT: Approximately 60 minutes were spent on the admission of this patient, more than half the time spent with the patient at the bedside reviewing the events leading up to this hospitalization, performing the physical examination, and reviewing my plan of care. JODIE GERMAN NP [id number]/[facility] #: [id number] ELIUD
[2018-08-08] MEDS: Albuterol/Ipratropium NEB.SOL* Albuterol 2.5 MG/Ipratropium 0.5 MG 3 ML INH SCH ×4 (01:32→19:45)
[2018-08-08] MEDS ORDERED: methylPREDNISolone SOD 40 MG* 1 ML VIAL IV SCH (02:00)
[2018-08-08] MEDS ORDERED: Loperamide CAP* 2 MG PO PRN (08:40)
[2018-08-08] MEDS ORDERED: Losartan TAB* 25 MG PO SCH (09:00)
[2018-08-08] MEDS: Metoprolol Succinate XL TAB* 50 MG PO SCH ×2 (09:23→20:49)
[2018-08-08] MEDS: Rivaroxaban TAB(*) 20 MG TAB PO SCH (09:24)
[2018-08-08] MEDS: Amiodarone TAB* 200 MG PO SCH (09:24)
[2018-08-08] MEDS: methylPREDNISolone SOD 40 MG* 1 ML VIAL IV SCH ×2 (09:24→20:50)
[2018-08-08] MEDS: DOXYcycline CAP(*) 100 MG PO SCH ×2 (09:24→20:49)
[2018-08-08] MEDS: Magnesium Oxide TAB* 400 MG PO SCH ×2 (10:19→20:49)
[2018-08-08 10:36] LABS: EGFR Non-African American 69.7 (>60)
--- NOTE | 2018-08-08 11:15 | PN ---
Subjective Date of Service: 08/08/18 Interval History: Patient's breathing if feeling improved from yesterday but is still not near his baseline. Patient states that he ahs had exposure to many people who are wick through his work but cannot identify any discrete close sick contacts. Patient had some subjective F/C earlier in the week when his symptoms were beginning. Patient denies F/C, N/V, abdominal pain, dizziness on standing. Patient has persistent cough of yellow sputum. Family History: Unchanged from Admission Social History: Unchanged from Admission Past Medical History: Unchanged from Admission Objective Active Medications: Acetaminophen (Tylenol Tab*) 650 mg PO Q6H PRN PRN Reason: PAIN Albuterol/Ipratropium (Duoneb (Albuterol 2.5 Mg/Ipratropium 0.5 Mg)) 1 neb INH Q4H PRN PRN Reason: SOB/WHEEZING Last Admin: 08/07/18 18:16 Dose: 1 neb Albuterol/Ipratropium (Duoneb (Albuterol 2.5 Mg/Ipratropium 0.5 Mg)) 1 neb INH [id number] AWAKE [facility] Last Admin: 08/08/18 07:19 Dose: 1 neb Amiodarone HCl (Cordarone Tab*) 200 mg PO DAILY [facility] Last Admin: 08/08/18 09:24 Dose: 200 mg Doxycycline Hyclate (Vibramycin Cap(*)) 100 mg PO BID [facility] Last Admin: 08/08/18 09:24 Dose: 100 mg Magnesium Sulfate (Magnesium Sulf 4 Gm/100 Ml Iv*) 4,000 mg in 100 mls @ 33.333 mls/hr IVPB ONCE ONE Stop: 08/08/18 14:07 Loperamide HCl (Imodium Cap*) 2 mg PO Q4H PRN PRN Reason: DIARRHEA Magnesium Oxide (Magox 400 Tab*) 800 mg PO BID [facility] Last Admin: 08/08/18 10:19 Dose: 800 mg Methylprednisolone Sodium Succinate (Solu-Medrol 40 Mg) 40 mg IV Q12H [facility] Last Admin: 08/08/18 09:24 Dose: 40 mg Metoprolol Succinate (Toprol Xl Tab*) 50 mg PO BID [facility] Last Admin: 08/08/18 09:23 Dose: 50 mg Ondansetron HCl (Zofran Inj*) 4 mg IV Q6H PRN PRN Reason: NAUSEA Rivaroxaban (Xarelto(*)) 20 mg PO DAILY [facility] Last Admin: 08/08/18 09:24 Dose: 20 mg Vital Signs - 8 hr 08/08/18 08/08/18 07:20 07:31 Temperature 97.5 F Pulse Rate 85 81 Respiratory 20 20 Rate Blood Pressure 122/75 (mmHg) O2 Sat by Pulse 99 99 Oximetry Oxygen Devices in Use Now: Nasal Cannula Appearance: Patient is a 57yo male who appears stated age and is sitting in the bed in NAD. Eyes: No Scleral Icterus, PERRLA Ears/Nose/Mouth/Throat: NL Teeth, Lips, Gums, Clear Oropharnyx, Mucous Membranes Moist Neck: NL Appearance and Movements; NL JVP, Trachea Midline Respiratory: Symmetrical Chest Expansion and Respiratory Effort, - - Musical wheezes and decreased breath sounds throughout. Cardiovascular: NL Sounds; No Murmurs; No JVD, RRR, - - Trace edema. Abdominal: NL Sounds; No Tenderness; No Distention, No Hepatosplenomegaly, - - Ileostomy Lymphatic: No Cervical Adenopathy Extremities: No Edema, No Clubbing, Cyanosis Skin: No Rash or Ulcers, No Nodules or Sclerosis Neurological: Alert and Oriented x 3, NL Sensation, NL Muscle Strength and Tone - CN II-XII intact. Result Diagrams: 08/07/18 13:05 08/08/18 09:50 Assess/Plan/Problems-Billing Assessment: Patient is a 57yo male with a PMH for AFib, SSS with pacemaker, COPD, and hepatitis C with SVR who is admitted for Severe shortness of breath and treatment of a COPD exacerbation with slow improvement. - Patient Problems (1) COPD exacerbation Current Visit: No Status: Acute Code(s): J44.1 - CHRONIC OBSTRUCTIVE PULMONARY DISEASE W (ACUTE) EXACERBATION SNOMED Code(s): 044399446547123 Comment: - Severe COPD exacerbation with wheezing and inability to tolerate any exercise. - Improving on Steroids, Inhalers, Doxycycline - Taper Solumedrol slowly - Hypoxic on RA - Low risk of PE with anticoagulation. (2) Hypomagnesemia Current Visit: No Status: Acute Code(s): E83.42 - HYPOMAGNESEMIA SNOMED Code(s): 110662123 Comment: - Low magnesium, replace IV and PO - Increase Immodium to slow down ileostomy output and hopefully slow decrease in Magnesium. (3) Atrial fibrillation Current Visit: No Status: Chronic Code(s): I48.91 - UNSPECIFIED ATRIAL FIBRILLATION SNOMED Code(s): 43350301 Comment: - 2 recent hospitalizations with Afib with RVR - Monitor on Tele - Continue Xarelto, Amiodarone and Metoprolol - Plan for repeat EP Study and possible ablation outpatient. (4) Hx of ulcerative colitis Current Visit: No Status: Chronic Priority: Medium Code(s): Z87.19 - PERSONAL HISTORY OF OTHER DISEASES OF THE DIGESTIVE SYSTEM SNOMED Code(s): 978230527 Comment: - Complete colectomy, no signs of disease activity. - Current Ileostomy. - Imodium to decrease urine output (5) Hypertension Current Visit: No Status: Chronic Code(s): I10 - ESSENTIAL (PRIMARY) HYPERTENSION SNOMED Code(s): 79729597 Comment: - Hypotensive yesterday - Continue metoprolol at reduced dose and hold losartan. (6) DVT prophylaxis Current Visit: No Status: Acute Onset Date: 12/26/14 Code(s): IQC8088 - SNOMED Code(s): 072989561 Comment: - Xarelto (7) Full code status Current Visit: No Status: Acute Onset Date: 12/26/14 Code(s): Z78.9 - OTHER SPECIFIED HEALTH STATUS SNOMED Code(s): 132559929 Comment: Status and Disposition: Inpatient for management of severe COPD exacerbation.
[2018-08-08] MEDS ORDERED: Magnesium Sulf 4 GM/100 ML IV* 4,000 MG/100 ML BAG IVPB ONE (11:30)
[2018-08-09] MEDS: Albuterol/Ipratropium NEB.SOL* Albuterol 2.5 MG/Ipratropium 0.5 MG 3 ML INH SCH ×5 (01:03→19:30)
[2018-08-09 05:57] LABS: ABS Basophils 0 10^3/ul (0-0.2); ABS Eosinophils 0 10^3/ul (0-0.6); ABS Lymphocytes 0.3 10^3/ul (1.0-4.8); ABS Monocytes 0.8 10^3/ul (0-0.8); ABS Nucleated RBC 0 10^3/ul; Eosinophil % 0 % (0-6); Hematocrit 36 % (42-52); Hemoglobin 11.9 g/dl (14.0-18.0); Lymphocyte % 1.3 % (25-47); Mean Corpuscular HGB Conc 33 g/dl (31-36); Mean Corpuscular Hemoglobin 33 pg (27-31); Mean Corpuscular Volume 100 fL (80-94); Mean Platelet Volume 7.6 fL (7.4-10.4); Nucleated Red Blood Cells % 0; Platelet Count 137 10^3/ul (150-450); Red Blood Count 3.57 10^6/ul (4.00-5.40); Red Cell Distribution Width 14 % (10.5-15); White Blood Count 19.1 10^3/ul (3.5-10.8)
[2018-08-09 06:19] LABS: EGFR Non-African American 84.8 (>60)
[2018-08-09] MEDS: Metoprolol Succinate XL TAB* 50 MG PO SCH ×2 (07:51→22:19)
[2018-08-09] MEDS: Rivaroxaban TAB(*) 20 MG TAB PO SCH (07:51)
[2018-08-09] MEDS: Amiodarone TAB* 200 MG PO SCH (07:51)
[2018-08-09] MEDS: DOXYcycline CAP(*) 100 MG PO SCH ×2 (07:51→22:19)
[2018-08-09] MEDS: Magnesium Oxide TAB* 400 MG PO SCH ×2 (07:51→22:19)
[2018-08-09] MEDS: methylPREDNISolone SOD 40 MG* 1 ML VIAL IV SCH ×2 (07:52→22:20)
--- NOTE | 2018-08-09 15:41 | PN ---
Subjective Date of Service: 08/09/18 Interval History: patient reports he feels better today but continues to have SOB with minimal exertion. reports little sputum production. Denies fever or chills. 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 He Reports this is a trigger for him and is now realizing. Family History: Unchanged from Admission Social History: Unchanged from Admission Past Medical History: Unchanged from Admission Objective Active Medications: Acetaminophen (Tylenol Tab*) 650 mg PO Q6H PRN PRN Reason: PAIN Albuterol/Ipratropium (Duoneb (Albuterol 2.5 Mg/Ipratropium 0.5 Mg)) 1 neb INH Q4H PRN PRN Reason: SOB/WHEEZING Last Admin: 08/07/18 18:16 Dose: 1 neb Albuterol/Ipratropium (Duoneb (Albuterol 2.5 Mg/Ipratropium 0.5 Mg)) 1 neb INH [id number] AWAKE [facility] Last Admin: 08/09/18 13:41 Dose: 1 neb Amiodarone HCl (Cordarone Tab*) 200 mg PO DAILY [facility] Last Admin: 08/09/18 07:51 Dose: 200 mg Doxycycline Hyclate (Vibramycin Cap(*)) 100 mg PO BID [facility] Last Admin: 08/09/18 07:51 Dose: 100 mg Loperamide HCl (Imodium Cap*) 2 mg PO Q4H PRN PRN Reason: DIARRHEA Magnesium Oxide (Magox 400 Tab*) 800 mg PO BID [facility] Last Admin: 08/09/18 07:51 Dose: 800 mg Methylprednisolone Sodium Succinate (Solu-Medrol 40 Mg) 40 mg IV Q12H [facility] Last Admin: 08/09/18 07:52 Dose: 40 mg Metoprolol Succinate (Toprol Xl Tab*) 50 mg PO BID [facility] Last Admin: 08/09/18 07:51 Dose: 50 mg Ondansetron HCl (Zofran Inj*) 4 mg IV Q6H PRN PRN Reason: NAUSEA Rivaroxaban (Xarelto(*)) 20 mg PO DAILY [facility] Last Admin: 08/09/18 07:51 Dose: 20 mg Vital Signs - 8 hr 08/09/18 08/09/18 08/09/18 08:00 11:18 13:43 Temperature 98.5 F Pulse Rate 83 79 Respiratory 22 23 17 Rate Blood Pressure 127/81 (mmHg) O2 Sat by Pulse 99 91 Oximetry 08/09/18 15:07 Temperature 98.2 F Pulse Rate 80 Respiratory 15 Rate Blood Pressure 125/75 (mmHg) O2 Sat by Pulse 98 Oximetry Oxygen Devices in Use Now: None Appearance: 57 yo male A+O x3 - appear mildly dyspneic after walking back from the bathroom Eyes: No Scleral Icterus, PERRLA Ears/Nose/Mouth/Throat: Mucous Membranes Moist Respiratory: Symmetrical Chest Expansion and Respiratory Effort, - - diminished b/l - no wheezing noted Cardiovascular: NL Sounds; No Murmurs; No JVD, RRR, No Edema Abdominal: NL Sounds; No Tenderness; No Distention Extremities: No Edema, No Clubbing, Cyanosis Skin: No Rash or Ulcers, No Nodules or Sclerosis Neurological: Alert and Oriented x 3, NL Sensation, NL Muscle Strength and Tone Lines/Tubes/Other Access: Clean, Dry and Intact Peripheral IV Nutrition: Taking PO's Result Diagrams: 08/09/18 05:38 08/09/18 05:38 Assess/Plan/Problems-Billing Assessment: Patient is a 57yo male with a PMH for AFib, SSS with pacemaker, COPD, and hepatitis C with SVR who is admitted for Severe shortness of breath and treatment of a COPD exacerbation with slow improvement. - Patient Problems (1) COPD exacerbation Comment: - Severe COPD exacerbation with wheezing and inability to tolerate any exercise - slow to improve. 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 - Pulm to consult -Dr. Franco (2) Atrial fibrillation Comment: - appears to be in a NSR - 2 recent hospitalizations with Afib with RVR - Monitor on Tele - Continue Xarelto, Amiodarone and Metoprolol - Plan for repeat EP Study and ablation outpatient (scheduled for August) (3) Hx of ulcerative colitis Comment: - Complete colectomy, no signs of disease activity. - Current Ileostomy. - Imodium to decrease urine output (4) Hypertension Comment: - Hypotensive resolved - Resume home dose metoprolol and hold losartan. (5) DVT prophylaxis Comment: - Xarelto. (6) Full code status Comment: Status and Disposition: Inpatient for management of severe COPD exacerbation.
[2018-08-09] MEDS ORDERED: Torsemide TAB* 20 MG PO ONE (16:22)
--- NOTE | 2018-08-09 20:21 | CONS ---
PULMONARY CONSULTATION REPORT: DATE OF CONSULT: 08/09/18 CONSULTATION REQUESTED BY: Melina Maldonado NP. REASON FOR CONSULTATION: Evaluation of shortness of breath. HISTORY OF PRESENT ILLNESS: The patient is a 57-year-old obese male with history of atrial fibrillation, sick sinus syndrome, pacemaker placement, COPD, ulcerative colitis status post colectomy and ileostomy, recent complicated course requiring multiple hospitalizations for AFib with RVR and also with worsening shortness of breath. The patient was hospitalized a few days ago for AFib with RVR, was discharged home on amiodarone. He has been having worsening symptoms and was found to have heart rate of 118 at primary care physician's office and also hypoxemia and was sent to [facility] in [place]. He was hospitalized for 4 to 5 days there and was started on diltiazem and also was started on torsemide for lower extremity edema. He was doing well until past few days, has been having worsening cough and shortness of breath along with significant wheezing and decided to come back for evaluation. He was sent into the hospital for hypoxemia and respiratory distress. The patient was found to be hypoxemic, requiring O2 supplementation in the emergency room. His heart rate was slightly elevated. He had chest x-ray that did not show pneumonia. Given significant respiratory distress, he was hospitalized for acute COPD exacerbation. Pulmonary consultation was requested to assist in management of his COPD. The patient is a former smoker, quit about 2 years ago. The patient reports significant dyspnea on exertion at baseline that has worsened over the past month. He also reports chronic cough. The patient reports prior history of bronchitis. 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 The patient reports snoring at night. He also reports disrupted sleep and daytime fatigue. He uses oxygen at night. He is not able to use oxygen during the day as prescribed, as he works in a place where it could be dangerous to use oxygen. He waits until he gets significantly dyspneic when he uses his oxygen and reports benefiting at that point in time. He was initiated on steroids, bronchodilators. Reports slight improvement in his shortness of breath symptoms. He is on Incruse and Symbicort at home and reports benefit from inhalers. PAST MEDICAL HISTORY: 1. COPD, atrial fibrillation with rapid ventricular response. 2. Sick sinus syndrome, status post pacemaker placement. 3. History of ventricular tachycardia, unable to tolerate Tikosyn. 4. Ulcerative colitis with colectomy and ileostomy. 5. History of YAMEL, on CPAP. MEDICATIONS: 1. Torsemide. 2. Diltiazem. 3. Albuterol. 4. Amiodarone. 5. Incruse. 6. Rivaroxaban. 7. Metoprolol. 8. Symbicort. 9. Magnesium. 10. Losartan. 11. Loperamide. ALLERGIES: CIPROFLOXACIN. FAMILY HISTORY: Mother due to motor vehicle accident, dad in [place] War. SOCIAL HISTORY: The patient is a former smoker, quit 2 years ago, with significant smoking history prior to that. Reports occupational exposure to fumes and also to flour. Alcohol intake of about 2 alcoholic beverages per day. No drug abuse. REVIEW OF SYSTEMS: All 14 systems were reviewed. Pertinent positives and negatives as listed in the HPI. The patient also reported lower extremity swelling on the left side that happens intermittently. He denies any pain or tenderness in the area. Denies urinary complaints, headaches, chest pain, rash, allergy symptoms. PHYSICAL EXAM: Obese male in bed, in no apparent distress. Vital Signs: Temperature 98.2, pulse 80 beats per minute, respiratory rate 15 per minute, O2 saturation 98% on 4 L, blood pressure 125/75. HEENT: Pupils equal, reactive to light. Mucous membranes moist. Lungs: Significant wheezing on auscultation , end expiratory. No crackles. Cardiovascular: S1, S2 present. Regular. Abdomen: Soft, nontender, nondistended. Bowel sounds present. Extremities: Normal range of motion, edema of left lower extremity. Skin: No rash. Neuro: No focal deficits. DIAGNOSTIC STUDIES/LAB DATA: WBC count 19.1, hemoglobin 11.9, hematocrit 36, platelet count 137,000. INR 2.2. Sodium 135, potassium 5.2, chloride 100, bicarb 30, BUN 21, creatinine 0.92. LFTs within normal limits. BNP elevated at 138. Influenza A and B negative. Chest x-ray on admission was personally reviewed by me in comparison with CT chest from 1 year ago. Chest x-ray suggestive of hyperinflation with no acute airspace opacities. CT of the chest from 2017 suggestive of significant emphysematous changes bilaterally predominantly in the upper lung zones with no suspicious nodules or masses. IMPRESSION AND RECOMMENDATIONS: 57-year-old obese male with history of chronic obstructive pulmonary disease, significant cardiac history with atrial fibrillation, sick sinus syndrome, ventricular tachycardia, admitted with worsening shortness of breath, found to be in acute chronic obstructive pulmonary disease exacerbation. 1. Acute chronic obstructive pulmonary disease exacerbation. 2. Uiigx-de-tspkmmk hypoxemic respiratory failure. 3. Concern for sleep apnea. 4. Obesity. 5. Congestive heart failure, possibly diastolic. 6. History of atrial fibrillation. The patient initiated on bronchodilators, antibiotics and nebulizers p.r.n. The patient also with elevated BNP on torsemide 20 mg. Would recommend giving an additional of torsemide. Lower extremity swelling. Will need to rule out deep venous thrombosis in the left lower extremity. Doppler should be ordered. Continue with present dose of Solu-Medrol. Still has significant wheezing on auscultation. Will not taper yet. Having difficulty expectorating phlegm, would benefit from flutter device. Continue with long-acting bronchodilators. Needing 4 L O2. O2 requirement, need to be assessed prior to the discharge. Discussed importance of oxygen and consequences of hypoxemia. He will need sleep study as outpatient. He will need PFTs as outpatient. CT chest 1 year ago did not reveal suspicious nodules or masses, he would qualify for low-dose CT this year around August, which can bearranged as outpatient. Pathophysiology of chronic obstructive pulmonary disease was discussed in detail with the patient. His shortness of breath is combination of underlying chronic obstructive pulmonary disease, poorly managed hypoxemia and also cardiac issues. Discussed importance of avoiding further occupational exposures in the setting of chronic obstructive pulmonary disease. Flutter device for mucus mobilization. Thank you for allowing me to participating in the care of your patient. The above recommendations were discussed with Melina Maldonado. [id number]/[facility] #: [id number] ELIUD
[2018-08-10] MEDS: Albuterol/Ipratropium NEB.SOL* Albuterol 2.5 MG/Ipratropium 0.5 MG 3 ML INH SCH ×4 (02:16→19:59)
[2018-08-10] MEDS: Mometasone/Formoter 100/5 MDI INH SCH ×2 (07:18→20:38)
[2018-08-10] MEDS ORDERED: Torsemide TAB* 20 MG PO ONE (07:27)
--- NOTE | 2018-08-10 07:27 | PN ---
Subjective Date of Service: 08/10/18 Interval History: pt reports he feels a little better today - has been ambulating in hallway with O@ - continues to feel very SOB with exertion but better than yesterday. Not bringing up any sputum yet. Reports frequent cough and wheezing. Denies CP. No fevers/chills Family History: Unchanged from Admission Social History: Unchanged from Admission Past Medical History: Unchanged from Admission Objective Active Medications: Acetaminophen (Tylenol Tab*) 650 mg PO Q6H PRN PRN Reason: PAIN Albuterol/Ipratropium (Duoneb (Albuterol 2.5 Mg/Ipratropium 0.5 Mg)) 1 neb INH Q4H PRN PRN Reason: SOB/WHEEZING Last Admin: 08/07/18 18:16 Dose: 1 neb Albuterol/Ipratropium (Duoneb (Albuterol 2.5 Mg/Ipratropium 0.5 Mg)) 1 neb INH [id number] AWAKE [facility] Last Admin: 08/10/18 07:18 Dose: 1 neb Amiodarone HCl (Cordarone Tab*) [address] [facility] Last Admin: 08/09/18 07:51 Dose: 200 mg Doxycycline Hyclate (Vibramycin Cap(*)) [address] [facility] Last Admin: 08/09/18 22:19 Dose: 100 mg Loperamide HCl (Imodium Cap*) 2 mg PO Q4H PRN PRN Reason: DIARRHEA Magnesium Oxide (Magox 400 Tab*) [address] [facility] Last Admin: 08/09/18 22:19 Dose: 800 mg Methylprednisolone Sodium Succinate (Solu-Medrol 40 Mg) [address] [facility] Last Admin: 08/09/18 22:20 Dose: 40 mg Metoprolol Succinate (Toprol Xl Tab*) [address] [facility] Last Admin: 08/09/18 22:19 Dose: 150 mg Mometasone Furoate/Formoterol Fumar (Dulera 100/5 Mdi*) [address] [facility] Last Admin: 08/10/18 07:18 Dose: 2 puff Ondansetron HCl (Zofran Inj*) 4 mg IV Q6H PRN PRN Reason: NAUSEA Rivaroxaban (Xarelto(*)) [address] [facility] Last Admin: 08/09/18 07:51 Dose: 20 mg Umeclidinium [place] (Incruse Ellipta Mdi (Nf)) 1 inh INH DAILY [facility] Vital Signs - 8 hr 08/10/18 08/10/18 08/10/18 00:10 02:16 03:20 Temperature 98.1 F 97.8 F Pulse Rate 84 74 82 Respiratory 12 20 18 Rate Blood Pressure 108/73 122/73 (mmHg) O2 Sat by Pulse 93 99 94 Oximetry Oxygen Devices in Use Now: None Appearance: 57 yo male A+O x3 in NAD - slightly dyspniec Eyes: No Scleral Icterus, PERRLA Ears/Nose/Mouth/Throat: NL Teeth, Lips, Gums, Mucous Membranes Moist Neck: NL Appearance and Movements; NL JVP Respiratory: Symmetrical Chest Expansion and Respiratory Effort, - - diminished throughout - some upper expiratory wheezing (mild) noted - slight dyspnea after ambulating in the hallways but noted to be improved from yesterday Cardiovascular: NL Sounds; No Murmurs; No JVD, RRR Abdominal: NL Sounds; No Tenderness; No Distention, - - obese Extremities: - - 1+ LE edema. Skin: No Rash or Ulcers, No Nodules or Sclerosis Neurological: Alert and Oriented x 3, NL Sensation, NL Gait, NL Muscle Strength and Tone Lines/Tubes/Other Access: Clean, Dry and Intact Peripheral IV Nutrition: Taking PO's Result Diagrams: 08/10/18 07:33 08/10/18 07:33 Microbiology and Other Data: Microbiology 08/09/18 16:35 Influenza Types A,B Antigen - Final Nasal Specimen received for Influenza A/B Molecular testing Assess/Plan/Problems-Billing Assessment: Patient is a 57yo male with a PMH for AFib, SSS with pacemaker, COPD, and hepatitis C with SVR who is admitted for Severe shortness of breath and treatment of a COPD exacerbation with slow improvement. - Patient Problems (1) Acute and chronic respiratory failure with hypoxia Comment: -most likely 2nd to COPD exacerbation, with a combination of mild diastolic CHF (2) COPD exacerbation Comment: - Severe COPD exacerbation with wheezing and inability to tolerate exertion- slow to improve but looks and feels a little better today. 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 Discussed with pulm who agrees to continue Doxy at this time and monitor - chest xray negative other than noted COPD - Continue Steroids, Inhalers (add back home inhalers), Doxycycline - Taper Solumedrol slowly - Send sputum cx, check flu swab - Low risk of PE with anticoagulation. - Appreciate pulm consult -Dr. Franco -Discussed current medications and plan. encourage flutter valve. Recommends CT chest as an outpt for 1 year f/u. (3) Lower extremity edema Comment: - left leg > Right - obtained doppler - no DVT noted but he does have a bakers cysts noted on imaging. Possible mild acute diastolic HF - Given Torsemide last night and will repeat dose this am (4) Atrial fibrillation Comment: - appears to be in a NSR - 2 recent hospitalizations with Afib with RVR - Monitor on Tele - Continue Xarelto, Amiodarone and Metoprolol - takes cardizem 30 mg po BID prn at home - Plan for ablation outpatient (scheduled for August) (5) Hx of ulcerative colitis Comment: - Complete colectomy, no signs of disease activity. - Current Ileostomy. - Imodium (6) Hypertension Comment: - Hypotensive resolved - Resume home dose metoprolol and hold losartan. (7) DVT prophylaxis Comment: - Xarelto. (8) Full code status Comment: Status and Disposition: Inpatient for management of severe COPD exacerbation with acute on chronic hypoxic resp failure
[2018-08-10 07:51] LABS: ABS Basophils 0 10^3/ul (0-0.2); ABS Eosinophils 0 10^3/ul (0-0.6); ABS Lymphocytes 0.3 10^3/ul (1.0-4.8); ABS Monocytes 0.7 10^3/ul (0-0.8); ABS Neutrophils 17.4 10^3/ul (1.5-7.7); ABS Nucleated RBC 0 10^3/ul; Eosinophil % 0 % (0-6); Hematocrit 36 % (42-52); Hemoglobin 12.3 g/dl (14.0-18.0); Lymphocyte % 1.6 % (25-47); Mean Corpuscular HGB Conc 34 g/dl (31-36); Mean Corpuscular Hemoglobin 33 pg (27-31); Mean Corpuscular Volume 98 fL (80-94); Mean Platelet Volume 7.6 fL (7.4-10.4); Nucleated Red Blood Cells % 0; Platelet Count 161 10^3/ul (150-450); Red Cell Distribution Width 14 % (10.5-15); White Blood Count 18.4 10^3/ul (3.5-10.8)
[2018-08-10 08:12] LABS: EGFR Non-African American 53.1 (>60)
[2018-08-10] MEDS: Umeclidinium 62.5 MDI(NF) MDI INH SCH (08:16)
[2018-08-10] MEDS: Rivaroxaban TAB(*) 20 MG TAB PO SCH (08:31)
[2018-08-10] MEDS: Metoprolol Succinate XL TAB* 50 MG PO SCH ×2 (08:31→20:44)
[2018-08-10] MEDS: DOXYcycline CAP(*) 100 MG PO SCH ×2 (08:31→20:44)
[2018-08-10] MEDS: Magnesium Oxide TAB* 400 MG PO SCH ×2 (08:31→20:45)
[2018-08-10] MEDS: Amiodarone TAB* 200 MG PO SCH (08:32)
[2018-08-10] MEDS: methylPREDNISolone SOD 40 MG* 1 ML VIAL IV SCH ×2 (08:32→20:46)
[2018-08-10] MEDS ORDERED: NS 0.9% 1000 ML* 1,000 ML IV SCH (09:15)
[2018-08-10] MEDS: GuaiFENesin DM* 5 ML UDC PO PRN ×2 (10:23→20:45)
[2018-08-10] MEDS ORDERED: Diltiazem TAB* 30 MG PO ONE (12:30)
[2018-08-10] MEDS ORDERED: Diltiazem TAB* 30 MG ONE (12:32)
--- NOTE | 2018-08-10 18:00 | PN ---
Progress Note - Progress Note Date of Service: 08/10/18 - Pulm f/u note Note: Pt seen and examined at bedside this am Pt reports slight improvement in SOB, denies significant cough, nebs are helpful. Was able to ambulate without much limitation Active Medications Generic Name Dose Route Start Last Admin Trade Name Freq PRN Reason Stop Dose Admin Acetaminophen 650 mg 08/07/18 17:24 Tylenol Tab* PO Q6H PRN PAIN Albuterol/Ipratropium 1 neb 08/07/18 17:04 08/07/18 18:16 Duoneb (Albuterol 2.5 Mg/Ipratropium 0.5 Mg) INH 1 neb Q4H PRN Administration SOB/WHEEZING Albuterol/Ipratropium 1 neb 08/07/18 19:00 08/10/18 12:55 Duoneb (Albuterol 2.5 Mg/Ipratropium 0.5 Mg) INH 1 neb [id number] AWAKE [facility] Administration Amiodarone HCl 200 mg 08/08/18 09:00 08/10/18 08:32 Cordarone Tab* PO 200 mg DAILY [facility] Administration Doxycycline Hyclate 100 mg 08/08/18 09:00 08/10/18 08:31 Vibramycin Cap(*) PO 100 mg BID [facility] Administration Guaifenesin/Dextromethorphan 10 ml 08/10/18 09:06 08/10/18 10:23 Robitussin Dm* PO 10 ml Q4H PRN Administration COUGH Sodium Chloride 1,000 mls @ 100 mls/hr 08/10/18 09:15 08/10/18 10:23 Ns 0.9% 1000 Ml* IV 08/10/18 19:14 100 mls/hr PER RATE [facility] Administration Loperamide HCl 2 mg 08/08/18 08:40 Imodium Cap* PO Q4H PRN DIARRHEA Magnesium Oxide 800 mg 08/08/18 10:00 08/10/18 08:31 Magox 400 Tab* PO 800 mg BID [facility] Administration Methylprednisolone Sodium Succinate 40 mg 08/08/18 09:00 08/10/18 08:32 Solu-Medrol 40 Mg IV 40 mg Q12H [facility] Administration Metoprolol Succinate 150 mg 08/09/18 21:00 08/10/18 08:31 Toprol Xl Tab* PO 150 mg BID [facility] Administration Mometasone Furoate/Formoterol Fumar 2 puff 08/10/18 09:00 08/10/18 07:18 Dulera 100/5 Mdi* INH 2 puff BID [facility] Administration Ondansetron HCl 4 mg 08/07/18 17:24 Zofran Inj* IV Q6H PRN NAUSEA Rivaroxaban 20 mg 08/08/18 09:00 08/10/18 08:31 Xarelto(*) PO 20 mg DAILY [facility] Administration Umeclidinium [place] 1 inh 08/10/18 09:00 08/10/18 08:16 Incruse Ellipta Mdi (Nf) INH Not Given DAILY COUNTS INCLUDE 234 BEDS AT THE [facility] Vital Signs Temp Pulse Resp BP Pulse Ox 97.9 F 65 18 113/73 98 08/10/18 15:52 08/10/18 15:52 08/10/18 15:52 08/10/18 15:52 08/10/18 15:52 O/E: Pt in NAD, sitting up in bed HEENT: PERRLA< no accessory muscle use Lungs: Diminished air entry b/l, wheeze+ CVS; S1, S2+, regular Abd: Soft, BS+ Ext: Normal ROM Skin: No rash Neuro: Alert, awake, No focal deficits Laboratory Results - last 24 hr 08/10/18 08/10/18 07:33 07:33 WBC 18.4 H RBC 3.70 L Hgb 12.3 L Hct 36 L MCV 98 H MCH 33 H MCHC 34 RDW 14 Plt Count 161 MPV 7.6 Neut % (Auto) 94.5 H Lymph % (Auto) 1.6 L [place] % (Auto) 3.8 Eos % (Auto) 0 Baso % (Auto) 0.1 Absolute Neuts (auto) 17.4 H Absolute Lymphs (auto) 0.3 L Absolute Monos (auto) 0.7 Absolute Eos (auto) 0 Absolute Basos (auto) 0 Absolute Nucleated RBC 0 Nucleated RBC % 0 Sodium 137 Potassium 4.8 Chloride 96 L Carbon Dioxide 33 H Anion Gap 8 BUN 39 H Creatinine 1.38 H Est GFR ( Amer) 64.3 Est GFR (Non-Af Amer) 53.1 BUN/Creatinine Ratio 28.3 H Glucose 121 H Calcium 9.5 I/R: 57 y o m with significant smoking history with complicated course recently with A.fib with RVR, PNA, a/w worsening SOB being treated for acute COPD exacerbation Pt also with systolic CHF Pt improving slowly Still has significant wheeze on auscultation Will c/w current steroid dosage Is on Torsemide Is receiving nebs round the clock and they are helpful NO PNA noted on CXR c/w flutter device Will need PFTs and sl study as out pt
[2018-08-11] MEDS: Albuterol/Ipratropium NEB.SOL* Albuterol 2.5 MG/Ipratropium 0.5 MG 3 ML INH SCH ×4 (02:06→19:44)
[2018-08-11 06:53] LABS: ABS Basophils 0 10^3/ul (0-0.2); ABS Eosinophils 0 10^3/ul (0-0.6); ABS Lymphocytes 0.3 10^3/ul (1.0-4.8); ABS Monocytes 0.5 10^3/ul (0-0.8); ABS Neutrophils 14.7 10^3/ul (1.5-7.7); ABS Nucleated RBC 0 10^3/ul; Eosinophil % 0 % (0-6); Hematocrit 35 % (42-52); Hemoglobin 11.7 g/dl (14.0-18.0); Mean Corpuscular HGB Conc 34 g/dl (31-36); Mean Corpuscular Hemoglobin 33 pg (27-31); Mean Corpuscular Volume 99 fL (80-94); Mean Platelet Volume 7.7 fL (7.4-10.4); Nucleated Red Blood Cells % 0; Platelet Count 145 10^3/ul (150-450); Red Blood Count 3.51 10^6/ul (4.00-5.40); Red Cell Distribution Width 14 % (10.5-15); White Blood Count 15.5 10^3/ul (3.5-10.8)
[2018-08-11 07:09] LABS: EGFR Non-African American 60.1 (>60)
[2018-08-11] MEDS: Umeclidinium 62.5 MDI(NF) MDI INH SCH (07:56)
[2018-08-11] MEDS: Mometasone/Formoter 100/5 MDI INH SCH ×2 (07:57→19:44)
[2018-08-11] MEDS: GuaiFENesin DM* 5 ML UDC PO PRN ×3 (09:06→21:01)
[2018-08-11] MEDS: DOXYcycline CAP(*) 100 MG PO SCH ×2 (09:07→21:01)
[2018-08-11] MEDS: methylPREDNISolone SOD 40 MG* 1 ML VIAL IV SCH ×2 (09:07→21:01)
[2018-08-11] MEDS: Metoprolol Succinate XL TAB* 50 MG PO SCH ×2 (09:07→21:00)
[2018-08-11] MEDS: Magnesium Oxide TAB* 400 MG PO SCH ×2 (09:08→21:00)
[2018-08-11] MEDS: Amiodarone TAB* 200 MG PO SCH (09:08)
[2018-08-11] MEDS: Rivaroxaban TAB(*) 20 MG TAB PO SCH (09:08)
--- NOTE | 2018-08-11 13:50 | PN ---
Subjective Date of Service: 08/11/18 Interval History: Mr. Yen reports feeling better today. He denies SOB and he has been up ambulating around the unit. He is not wearing oxygen. Reports occasional chest pain lasting less than 60 seconds w/out any associated symptoms. He believes this is when he is going into afib. 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 He understands that he will likely need to quit in order to better his health. He is scheduled for a colonoscopy and ablation in September, and he is hoping to avoid any further hospitalizations until that time. He denies N/V/D, dizziness. Family History: Unchanged from Admission Social History: Unchanged from Admission Past Medical History: Unchanged from Admission Objective Active Medications: Acetaminophen (Tylenol Tab*) 650 mg PO Q6H PRN Albuterol/Ipratropium (Duoneb (Albuterol 2.5 Mg/Ipratropium 0.5 Mg)) 1 neb INH Q4H PRN Albuterol/Ipratropium (Duoneb (Albuterol 2.5 Mg/Ipratropium 0.5 Mg)) 1 neb INH [id number] AWAKE [facility] Amiodarone HCl (Cordarone Tab*) 200 mg PO DAILY [facility] Doxycycline Hyclate (Vibramycin Cap(*)) 100 mg PO BID [facility] Guaifenesin/Dextromethorphan (Robitussin Dm*) 10 ml PO Q4H PRN Loperamide HCl (Imodium Cap*) 2 mg PO Q4H PRN Magnesium Oxide (Magox 400 Tab*) 800 mg PO BID [facility] Methylprednisolone Sodium Succinate (Solu-Medrol 40 Mg) 40 mg IV Q12H [facility] Metoprolol Succinate (Toprol Xl Tab*) 150 mg PO BID [facility] Mometasone Furoate/Formoterol Fumar (Dulera 100/5 Mdi*) 2 puff INH BID [facility] Ondansetron HCl (Zofran Inj*) 4 mg IV Q6H PRN Rivaroxaban (Xarelto(*)) 20 mg PO DAILY [facility] Umeclidinium [place] (Incruse Ellipta Mdi (Nf)) 1 inh INH DAILY [facility] Vital Signs - 8 hr 11/21/18 11/21/18 11/21/18 07:59 08:12 12:03 Temperature 97.4 F 97.8 F Pulse Rate 64 64 61 Respiratory 18 16 16 Rate Blood Pressure 136/84 149/85 (mmHg) O2 Sat by Pulse 97 97 96 Oximetry 08/11/18 13:21 Temperature Pulse Rate 84 Respiratory 18 Rate Blood Pressure (mmHg) O2 Sat by Pulse 93 Oximetry Oxygen Devices in Use Now: None Appearance: Middle-aged male sitting in bed in NAD Eyes: No Scleral Icterus Ears/Nose/Mouth/Throat: Mucous Membranes Moist Neck: NL Appearance and Movements; NL JVP, Trachea Midline Respiratory: Symmetrical Chest Expansion and Respiratory Effort, - - Wheezes bilaterally throughout Cardiovascular: NL Sounds; No Murmurs; No JVD, RRR Abdominal: NL Sounds; No Tenderness; No Distention Extremities: - - +1 pitting edema to LLE Skin: No Rash or Ulcers Neurological: Alert and Oriented x 3 Lines/Tubes/Other Access: Clean, Dry and Intact Peripheral IV Nutrition: Taking PO's Result Diagrams: 08/11/18 06:23 08/11/18 06:23 Assess/Plan/Problems-Billing Assessment: Patient is a 57yo male with a PMH for AFib, SSS with pacemaker, COPD, and hepatitis C with SVR who is admitted for Severe shortness of breath and treatment of a COPD exacerbation with slow improvement. - Patient Problems (1) COPD exacerbation Current Visit: Yes Status: Acute Code(s): J44.1 - CHRONIC OBSTRUCTIVE PULMONARY DISEASE W (ACUTE) EXACERBATION SNOMED Code(s): 385268388696424 Comment: - Severe COPD exacerbation with wheezing; suspect secondary to environmental factors of work exposure - Recently hospiatlization, so HCAP should be on differential but no noted pna on CxR; pulmonology who agrees to continue Doxy at this time and monitor - Appreciate pulm consult; Dr. Franco recommends flutter valve and f/u CT chest in 1 year - Continue inhalers, Doxycycline - Change to PO prednisone starting tomorrow (2) Acute and chronic respiratory failure with hypoxia Current Visit: Yes Status: Acute Code(s): J96.21 - ACUTE AND CHRONIC RESPIRATORY FAILURE WITH HYPOXIA SNOMED Code(s): 97372316 Comment: - 2/2 COPD exacerbation and mild diastolic CHF - Low risk of PE with anticoagulation (3) Paroxysmal A-fib Current Visit: Yes Status: Acute Code(s): I48.0 - PAROXYSMAL ATRIAL FIBRILLATION SNOMED Code(s): 223722841 Comment: - NSR w/ occasional short (less than 30 sec) periods of rate-controlled afib - 2 recent hospitalizations with Afib with RVR - Monitor on tele - Continue Xarelto, amiodarone and metoprolol - Plan for ablation outpatient (scheduled for September) (4) Lower extremity edema Current Visit: Yes Status: Acute Code(s): R60.0 - LOCALIZED EDEMA SNOMED Code(s): 714014987 Comment: - Left > right; patient reports this is typical - No DVT on US, but he does have a bakers cysts noted on imaging - Possible mild acute diastolic HF - Will not give any additional torsemide today d/t elevated creatinine (5) Hypertension Current Visit: Yes Status: Chronic Code(s): I10 - ESSENTIAL (PRIMARY) HYPERTENSION SNOMED Code(s): 20230463 Comment: - Normotensive - Continue metoprolol and restart losartan (6) Hx of ulcerative colitis Current Visit: Yes Status: Chronic Priority: Medium Code(s): Z87.19 - PERSONAL HISTORY OF OTHER DISEASES OF THE DIGESTIVE SYSTEM SNOMED Code(s): 796603069 Comment: - Complete colectomy w/ ileostomy; no signs of disease activity (7) DVT prophylaxis Current Visit: Yes Status: Acute Onset Date: 12/26/14 Code(s): VWW9424 - SNOMED Code(s): 278101903 Comment: - Xarelto (8) Full code status Current Visit: Yes Status: Acute Onset Date: 12/26/14 Code(s): Z78.9 - OTHER SPECIFIED HEALTH STATUS SNOMED Code(s): 677729960 Status and Disposition: Inpatient for management of severe COPD exacerbation with acute on chronic hypoxic respiratory failure. Attending: Preethi Mckeon
--- NOTE | 2018-08-11 14:52 | PN ---
Progress Note - Progress Note Date of Service: 08/11/18 - Pulm f/u note Note: Pt seen and examined at bedside. Pt reports feeling better today. Cough is improved with medication. No sputum Active Medications Generic Name Dose Route Start Last Admin Trade Name Freq PRN Reason Stop Dose Admin Acetaminophen 650 mg 08/07/18 17:24 Tylenol Tab* PO Q6H PRN PAIN Albuterol/Ipratropium 1 neb 08/07/18 17:04 08/07/18 18:16 Duoneb (Albuterol 2.5 Mg/Ipratropium 0.5 Mg) INH 1 neb Q4H PRN Administration SOB/WHEEZING Albuterol/Ipratropium 1 neb 08/07/18 19:00 08/11/18 13:20 Duoneb (Albuterol 2.5 Mg/Ipratropium 0.5 Mg) INH 1 neb [id number] AWAKE [facility] Administration Amiodarone HCl 200 mg 08/08/18 09:00 08/11/18 09:08 Cordarone Tab* PO 200 mg DAILY [facility] Administration Doxycycline Hyclate 100 mg 08/08/18 09:00 08/11/18 09:07 Vibramycin Cap(*) PO 100 mg BID [facility] Administration Guaifenesin/Dextromethorphan 10 ml 08/10/18 09:06 08/11/18 14:41 Robitussin Dm* PO 10 ml Q4H PRN Administration COUGH Loperamide HCl 2 mg 08/08/18 08:40 Imodium Cap* PO Q4H PRN DIARRHEA Losartan Potassium 50 mg 08/12/18 09:00 Cozaar Tab* PO DAILY [facility] Magnesium Oxide 800 mg 08/08/18 10:00 08/11/18 09:08 Magox 400 Tab* PO 800 mg BID [facility] Administration Methylprednisolone Sodium Succinate 40 mg 08/08/18 09:00 08/11/18 09:07 Solu-Medrol 40 Mg IV 08/11/18 22:00 40 mg Q12H [facility] Administration Metoprolol Succinate 150 mg 08/09/18 21:00 08/11/18 09:07 Toprol Xl Tab* PO 150 mg BID [facility] Administration Mometasone Furoate/Formoterol Fumar 2 puff 08/10/18 09:00 08/11/18 07:57 Dulera 100/5 Mdi* INH 2 puff BID [facility] Administration Ondansetron HCl 4 mg 08/07/18 17:24 Zofran Inj* IV Q6H PRN NAUSEA Prednisone 50 mg 08/12/18 09:00 Deltasone Tab* PO DAILY [facility] Rivaroxaban 20 mg 08/08/18 09:00 08/11/18 09:08 Xarelto(*) PO 20 mg DAILY [facility] Administration Umeclidinium [place] 1 inh 08/10/18 09:00 08/11/18 07:56 Incruse Ellipta Mdi (Nf) INH Not Given DAILY [facility] Vital Signs Temp Pulse Resp BP Pulse Ox 97.8 F 84 18 149/85 93 08/11/18 12:03 08/11/18 13:21 08/11/18 13:21 08/11/18 12:03 08/11/18 13:21 O/E: Pt in NAD, sitting up in bed, is cheerful HEENT: PERRLA, no accessory muscle use Lungs: Diminished air entry b/l, exp wheeze+ CVS; S1, S2+, regular Abd: Soft, BS+ Ext: Normal ROM Skin: No rash Neuro: Alert, awake, No focal deficits Laboratory Results - last 24 hr 08/10/18 08/11/18 08/11/18 18:51 06:23 06:23 WBC 15.5 H RBC 3.51 L Hgb 11.7 L Hct 35 L MCV 99 H MCH 33 H MCHC 34 RDW 14 Plt Count 145 L MPV 7.7 Neut % (Auto) 94.9 H Lymph % (Auto) 2.0 L [place] % (Auto) 3.0 Eos % (Auto) 0 Baso % (Auto) 0.1 Absolute Neuts (auto) 14.7 H Absolute Lymphs (auto) 0.3 L Absolute Monos (auto) 0.5 Absolute Eos (auto) 0 Absolute Basos (auto) 0 Absolute Nucleated RBC 0 Nucleated RBC % 0 Sodium 135 Potassium 4.4 Chloride 97 L Carbon Dioxide 31 Anion Gap 7 BUN 40 H Creatinine 1.24 H Est GFR ( Amer) 72.7 Est GFR (Non-Af Amer) 60.1 BUN/Creatinine Ratio 32.3 H Glucose 136 H Calcium 9.1 Troponin I 0.00 I/R: 57 y o m with significant smoking history with complicated course recently with A.fib with RVR, PNA, a/w worsening SOB being treated for acute COPD exacerbation and CAP Pt also with systolic CHF Pt improving slowly Still has significant wheeze on auscultation Will c/w current steroid dosage Slow steroid taper upon d/c Is on Torsemide, will give additional dose today No PNA noted on CXR c/w flutter device Will need PFTs and sl study as out pt
[2018-08-12] MEDS: Albuterol/Ipratropium NEB.SOL* Albuterol 2.5 MG/Ipratropium 0.5 MG 3 ML INH SCH ×4 (01:38→19:53)
[2018-08-12] MEDS: Albuterol/Ipratropium NEB.SOL* Albuterol 2.5 MG/Ipratropium 0.5 MG 3 ML INH PRN (03:14)
[2018-08-12] MEDS: Mometasone/Formoter 100/5 MDI INH SCH ×4 (06:09→20:22)
[2018-08-12 06:58] LABS: ABS Basophils 0 10^3/ul (0-0.2); ABS Eosinophils 0 10^3/ul (0-0.6); ABS Lymphocytes 0.3 10^3/ul (1.0-4.8); ABS Monocytes 0.9 10^3/ul (0-0.8); ABS Neutrophils 14.8 10^3/ul (1.5-7.7); ABS Nucleated RBC 0 10^3/ul; Eosinophil % 0 % (0-6); Hematocrit 36 % (42-52); Hemoglobin 12.1 g/dl (14.0-18.0); Lymphocyte % 1.9 % (25-47); Mean Corpuscular HGB Conc 34 g/dl (31-36); Mean Corpuscular Hemoglobin 33 pg (27-31); Mean Corpuscular Volume 99 fL (80-94); Mean Platelet Volume 7.7 fL (7.4-10.4); Nucleated Red Blood Cells % 0; Platelet Count 155 10^3/ul (150-450); Red Blood Count 3.66 10^6/ul (4.00-5.40); Red Cell Distribution Width 14 % (10.5-15); White Blood Count 15.9 10^3/ul (3.5-10.8)
[2018-08-12 07:11] LABS: EGFR Non-African American 69.7 (>60)
[2018-08-12] MEDS: Umeclidinium 62.5 MDI(NF) MDI INH SCH (08:22)
[2018-08-12] MEDS: Rivaroxaban TAB(*) 20 MG TAB PO SCH (08:45)
[2018-08-12] MEDS: Magnesium Oxide TAB* 400 MG PO SCH ×2 (08:45→20:35)
[2018-08-12] MEDS: DOXYcycline CAP(*) 100 MG PO SCH ×2 (08:45→20:35)
[2018-08-12] MEDS: Amiodarone TAB* 200 MG PO SCH (08:46)
[2018-08-12] MEDS: Metoprolol Succinate XL TAB* 50 MG PO SCH ×2 (08:46→20:42)
[2018-08-12] MEDS: predniSONE TAB* 50 MG PO SCH (08:47)
[2018-08-12] MEDS ORDERED: Losartan TAB* 25 MG PO SCH (09:00)
[2018-08-12] MEDS: Torsemide TAB* 20 MG PO SCH (10:59)
[2018-08-12] MEDS: GuaiFENesin DM* 5 ML UDC PO PRN (11:00)
[2018-08-12] MEDS ORDERED: Furosemide IV* 10 MG/ML VIAL (40 MG) IV ONE (13:10)
--- NOTE | 2018-08-12 14:40 | PN ---
Subjective Date of Service: 08/12/18 Interval History: Mr. Yen feels better today. He reports his SOB has improved. He is up ambulating in the hallways frequently and is not requiring oxygen. Feels as though his LLE edema is not improving on torsemide and is concerned as he appears to have been steadily gaining weight since being in the hospital. He does not notice any other areas of edema, but does feel as though his face is "puffier" than normal. He denies CP, N/V/D, dizziness. He is agreeable to staying in the hospital another day d/t the cold weather and the likelihood of that worsening his symptoms. Family History: Unchanged from Admission Social History: Unchanged from Admission Past Medical History: Unchanged from Admission Objective Active Medications: Acetaminophen (Tylenol Tab*) 650 mg PO Q6H PRN PAIN Albuterol/Ipratropium (Duoneb (Albuterol 2.5 Mg/Ipratropium 0.5 Mg)) 1 neb INH Q4H PRN SOB/WHEEZING Albuterol/Ipratropium (Duoneb (Albuterol 2.5 Mg/Ipratropium 0.5 Mg)) 1 neb INH [id number] AWAKE [facility] Amiodarone HCl (Cordarone Tab*) 200 mg PO DAILY [facility] Doxycycline Hyclate (Vibramycin Cap(*)) 100 mg PO BID [facility] Guaifenesin/Dextromethorphan (Robitussin Dm*) 10 ml PO Q4H PRN COUGH Loperamide HCl (Imodium Cap*) 2 mg PO Q4H PRN DIARRHEA Losartan Potassium (Cozaar Tab*) 50 mg PO DAILY [facility] Magnesium Oxide (Magox 400 Tab*) 800 mg PO BID [facility] Metoprolol Succinate (Toprol Xl Tab*) 150 mg PO BID [facility] Mometasone Furoate/Formoterol Fumar (Dulera 100/5 Mdi*) 2 puff INH BID [facility] Ondansetron HCl (Zofran Inj*) 4 mg IV Q6H PRN NAUSEA Prednisone (Deltasone Tab*) 50 mg PO DAILY [facility] Rivaroxaban (Xarelto(*)) 20 mg PO DAILY [facility] Torsemide (Demadex*) 20 mg PO DAILY [facility] Umeclidinium [place] (Incruse Ellipta Mdi (Nf)) 1 inh INH DAILY [facility] Vital Signs - 8 hr 08/12/18 08/12/18 08/12/18 08:00 08:16 12:28 Temperature 97.7 F 97.7 F Pulse Rate 60 70 Respiratory 16 18 18 Rate Blood Pressure 129/81 137/74 (mmHg) O2 Sat by Pulse 98 96 Oximetry 08/12/18 13:28 Temperature Pulse Rate 88 Respiratory 16 Rate Blood Pressure (mmHg) O2 Sat by Pulse 96 Oximetry Oxygen Devices in Use Now: None Appearance: Middle-aged male sitting in bed in NAD Eyes: No Scleral Icterus Ears/Nose/Mouth/Throat: Mucous Membranes Moist Neck: NL Appearance and Movements; NL JVP Respiratory: Symmetrical Chest Expansion and Respiratory Effort, - - Wheezes to bilat bases, otherwise clear throughout Cardiovascular: NL Sounds; No Murmurs; No JVD, RRR Abdominal: NL Sounds; No Tenderness; No Distention Extremities: - - LLE edema Skin: No Rash or Ulcers Neurological: Alert and Oriented x 3 Lines/Tubes/Other Access: Clean, Dry and Intact Peripheral IV Nutrition: Taking PO's Result Diagrams: 08/12/18 06:31 08/12/18 06:31 Assess/Plan/Problems-Billing Assessment: Patient is a 57yo male with a PMH for AFib, SSS with pacemaker, COPD, and hepatitis C with SVR who is admitted for Severe shortness of breath and treatment of a COPD exacerbation with slow improvement. - Patient Problems (1) COPD exacerbation Current Visit: Yes Status: Acute Code(s): J44.1 - CHRONIC OBSTRUCTIVE PULMONARY DISEASE W (ACUTE) EXACERBATION SNOMED Code(s): 399595107117222 Comment: - Severe COPD exacerbation with wheezing; suspect secondary to environmental factors of work exposure - Recently hospiatlization, so HCAP should be on differential but no noted pna on CxR; pulmonology who agrees to continue Doxy at this time and monitor - Appreciate pulm consult; Dr. Franco recommends flutter valve and f/u CT chest in 1 year - Continue inhalers, Doxycycline, prednisone (will likely need slow taper at d/c ) (2) Acute and chronic respiratory failure with hypoxia Current Visit: Yes Status: Acute Code(s): J96.21 - ACUTE AND CHRONIC RESPIRATORY FAILURE WITH HYPOXIA SNOMED Code(s): 15741707 Comment: - 2/2 COPD exacerbation and mild diastolic CHF - Low risk of PE with anticoagulation (3) Paroxysmal A-fib Current Visit: Yes Status: Acute Code(s): I48.0 - PAROXYSMAL ATRIAL FIBRILLATION SNOMED Code(s): 002068138 Comment: - NSR w/ occasional short periods of afib - 2 recent hospitalizations with Afib with RVR - Monitor on tele - Continue Xarelto, amiodarone and metoprolol - Plan for ablation outpatient (scheduled for September) (4) Lower extremity edema Current Visit: Yes Status: Acute Code(s): R60.0 - LOCALIZED EDEMA SNOMED Code(s): 956922235 Comment: - Left > right; patient reports this is typical for him, but concerned about recent weight gain - No DVT on US, but he does have a bakers cysts noted on imaging - Possible mild acute diastolic HF - Resume torsemide and give additional lasix x1 today; will continue to monitor renal function (5) Hypertension Current Visit: Yes Status: Chronic Code(s): I10 - ESSENTIAL (PRIMARY) HYPERTENSION SNOMED Code(s): 95300752 Comment: - Normotensive - Continue metoprolol and restart losartan (6) Hx of ulcerative colitis Current Visit: Yes Status: Chronic Priority: Medium Code(s): Z87.19 - PERSONAL HISTORY OF OTHER DISEASES OF THE DIGESTIVE SYSTEM SNOMED Code(s): 529455475 Comment: - Complete colectomy w/ ileostomy; no signs of disease activity (7) DVT prophylaxis Current Visit: Yes Status: Acute Onset Date: 12/26/14 Code(s): HER6367 - SNOMED Code(s): 488262165 Comment: - Xarelto (8) Full code status Current Visit: Yes Status: Acute Onset Date: 12/26/14 Code(s): Z78.9 - OTHER SPECIFIED HEALTH STATUS SNOMED Code(s): 612025187 Status and Disposition: Inpatient for management of severe COPD exacerbation with acute on chronic hypoxic respiratory failure. Possible d/c in 1-2 days. He will require close f/ u with Dr. Franco d/t frequency of recent exacerbations. Attending: Preethi Mckeon
[2018-08-12] MEDS ORDERED: Diltiazem IV* 5 MG/ML 5 ML VIAL (for loading dose/IV Push) (25 MG) IV SLOW PU ONE (16:58)
[2018-08-12] MEDS ORDERED: Digoxin IV* 0.5 MG/2 ML AMP (0.25 MG/ML) IV SLOW PU ONE (16:58)
[2018-08-12] MEDS ORDERED: Diltiazem DRIP* 100 MG/100 ML ADDV.BAG IVPB SCH (21:00)
[2018-08-12] MEDS: NS 0.9% 1000 ML* 1,000 ML IV SCH (21:11)
[2018-08-13] MEDS ORDERED: Digoxin IV* 0.5 MG/2 ML AMP (0.25 MG/ML) IV SLOW PU ONE (00:01)
[2018-08-13] MEDS: Albuterol/Ipratropium NEB.SOL* Albuterol 2.5 MG/Ipratropium 0.5 MG 3 ML INH SCH ×6 (01:57→19:40)
[2018-08-13] MEDS ORDERED: Diltiazem DRIP* 100 MG in NS 100 ML ADDV.BAG IVPB SCH (02:15)
[2018-08-13 06:59] LABS: Hematocrit 37 % (42-52); Hemoglobin 12.5 g/dl (14.0-18.0); Mean Corpuscular HGB Conc 34 g/dl (31-36); Mean Corpuscular Hemoglobin 33 pg (27-31); Mean Corpuscular Volume 98 fL (80-94); Mean Platelet Volume 7.5 fL (7.4-10.4); Platelet Count 145 10^3/ul (150-450); Red Cell Distribution Width 14 % (10.5-15); White Blood Count 11.9 10^3/ul (3.5-10.8)
[2018-08-13 07:16] LABS: EGFR Non-African American 59.5 (>60)
[2018-08-13 07:27] LABS: ABS Basophils 0 10^3/ul (0-0.2); ABS Eosinophils 0.1 10^3/ul (0-0.6); ABS Lymphocytes 0.8 10^3/ul (1.0-4.8); ABS Monocytes 1.5 10^3/ul (0-0.8); ABS Neutrophils 9.4 10^3/ul (1.5-7.7); ABS Nucleated RBC 0 10^3/ul; Eosinophil % 0.9 % (0-6); Nucleated Red Blood Cells % 0.1
[2018-08-13] MEDS: Umeclidinium 62.5 MDI(NF) MDI INH SCH (07:47)
[2018-08-13] MEDS: Mometasone/Formoter 100/5 MDI INH SCH ×3 (07:47→22:27)
[2018-08-13] MEDS: Metoprolol Succinate XL TAB* 50 MG PO SCH (08:03)
[2018-08-13] MEDS: Losartan TAB* 25 MG PO SCH (08:10)
[2018-08-13] MEDS: Magnesium Oxide TAB* 400 MG PO SCH ×2 (08:10→20:57)
[2018-08-13] MEDS: predniSONE TAB* 50 MG PO SCH (08:11)
[2018-08-13] MEDS: DOXYcycline CAP(*) 100 MG PO SCH ×2 (08:11→20:57)
[2018-08-13] MEDS: Rivaroxaban TAB(*) 20 MG TAB PO SCH (08:11)
[2018-08-13] MEDS: Torsemide TAB* 20 MG PO SCH (08:11)
[2018-08-13] MEDS: Amiodarone TAB* 200 MG PO SCH (08:11)
[2018-08-13] MEDS ORDERED: Diltiazem DRIP* 100 MG/100 ML ADDV.BAG IVPB SCH ×2 (09:48→14:00)
[2018-08-13] MEDS: Amiodarone TAB* 400 MG PO SCH (11:36)
[2018-08-13] MEDS ORDERED: Amiodarone TAB* 400 MG PO ONE (12:22)
--- NOTE | 2018-08-13 12:48 | PN ---
Cardiology Progress Note Date of Service: 08/13/18 - CC: SOB Pt with PAF, back in afib, in and out, when in RVR. Admitted with pneumonia and COPD exacerbation, on steroids, inhalers, antibiotics. Longstanding PAF on amiodarone 200 mg/day. Had afib ablation x 1, [facility]. Lytes OK. Metoprolol held this AM due to low BP. A/P PAF, recurred w/lung problems, in and out. No point in CV as he is going in and out on his own. Increasing amiodarone. I recommend getting back on BB, OK lower doses more often, he is at risk for rebound tachycardia with holding. If able optimize COPD and look at COPD meds, are there improvements that could be made to decrease chance of afib (change albuterol, decrease prednisone). Ensure lytes stable on going, looked good yesterday. Full consult note to be dictated.
[2018-08-13] MEDS ORDERED: Levalbuterol 0.63MG/3ML NEB* UNIT OF USE INH PRN (13:54)
[2018-08-13] MEDS: Metoprolol Tartrate TAB* 50 mg PO SCH ×2 (14:15→22:11)
--- NOTE | 2018-08-13 15:50 | PN ---
Subjective Date of Service: 08/13/18 Interval History: Patient seen and examined this morning. Rate increased to 140s-150s in afib with RVR again. Discussed with cardiology, patient sent to ICU for titration of cardizem drip. Amio increased. Patient feeling SOB, no chest pain. PEr RN, patient became diaphoretic at one point and appeared to be doing poorly. Call from ICU at 1530 that patient converted to RSR at 1522. Family History: Unchanged from Admission Social History: Unchanged from Admission Past Medical History: Unchanged from Admission Objective Active Medications: Acetaminophen (Tylenol Tab*) 650 mg PO Q6H PRN PRN Reason: PAIN Albuterol/Ipratropium (Duoneb (Albuterol 2.5 Mg/Ipratropium 0.5 Mg)) 1 neb INH [id number] AWAKE [facility] Last Admin: 08/13/18 11:00 Dose: Not Given Amiodarone HCl (Cordarone Tab*) 400 mg PO DAILY [facility] Last Admin: 08/13/18 11:36 Dose: 400 mg Device (Tiotropium Inhaler Device*) 1 each INH .USE w/ SPIRIVA CAPS [facility] Device (Tiotropium Inhaler Device*) 1 each .SEE ORDER .USE w/ SPIRIVA CAPS [facility] Doxycycline Hyclate (Vibramycin Cap(*)) 100 mg PO BID [facility] Last Admin: 08/13/18 08:11 Dose: 100 mg Guaifenesin/Dextromethorphan (Robitussin Dm*) 10 ml PO Q4H PRN PRN Reason: COUGH Last Admin: 08/12/18 11:00 Dose: 10 ml Sodium Chloride (Ns 0.9% 1000 Ml*) 1,000 mls @ 100 mls/hr IV PER RATE JUSTIN Stop: 08/14/18 06:44 Last Admin: 08/12/18 21:11 Dose: 100 mls/hr Diltiazem HCl (Cardizem Iv Advan*) 100 mg in 100 mls @ 8 mls/hr IVPB .INITIAL RATE JUSTIN; Protocol Last Admin: 08/13/18 14:30 Dose: 15 mls/hr Levalbuterol HCl (Xopenex 0.63mg/3ml Neb*) 0.63 mg INH Q4H PRN PRN Reason: SOB/WHEEZING Loperamide HCl (Imodium Cap*) 2 mg PO Q4H PRN PRN Reason: DIARRHEA Losartan Potassium (Cozaar Tab*) 50 mg PO DAILY [facility] Last Admin: 08/13/18 08:10 Dose: Not Given Magnesium Oxide (Magox 400 Tab*) 800 mg PO BID [facility] Last Admin: 08/13/18 08:10 Dose: 800 mg Metoprolol Tartrate (Lopressor Tab*) 50 mg PO Q8HR [facility] Last Admin: 08/13/18 14:15 Dose: 50 mg Mometasone Furoate/Formoterol Fumar (Dulera 100/5 Mdi*) 2 puff INH BID [facility] Last Admin: 08/13/18 10:53 Dose: 2 puff Ondansetron HCl (Zofran Inj*) 4 mg IV Q6H PRN PRN Reason: NAUSEA Prednisone (Deltasone Tab*) 40 mg PO DAILY [facility] Rivaroxaban (Xarelto(*)) 20 mg PO DAILY [facility] Last Admin: 08/13/18 08:11 Dose: 20 mg Tiotropium [place] (Spiriva Cap.Inh*) 1 cap INH DAILY [facility] Torsemide (Demadex*) 20 mg PO DAILY [facility] Last Admin: 08/13/18 08:11 Dose: 20 mg Vital Signs - 8 hr 08/13/18 08/13/18 08/13/18 07:54 08:00 08:02 Temperature Pulse Rate 78 Respiratory 18 Rate Blood Pressure 92/66 92/66 (mmHg) O2 Sat by Pulse 99 Oximetry 08/13/18 08/13/18 08/13/18 08:03 08:54 09:00 Temperature 98.5 F Pulse Rate 67 141 152 Respiratory 18 Rate Blood Pressure 106/70 86/71 (mmHg) O2 Sat by Pulse 98 97 97 Oximetry 08/13/18 08/13/18 08/13/18 09:17 09:26 09:29 Temperature Pulse Rate Respiratory Rate Blood Pressure 88/68 104/73 91/69 (mmHg) O2 Sat by Pulse Oximetry 08/13/18 08/13/18 08/13/18 09:34 09:39 09:44 Temperature Pulse Rate Respiratory Rate Blood Pressure 99/59 95/71 92/67 (mmHg) O2 Sat by Pulse Oximetry 08/13/18 08/13/18 08/13/18 09:49 10:28 10:34 Temperature Pulse Rate 69 61 Respiratory Rate Blood Pressure 104/73 89/62 90/66 (mmHg) O2 Sat by Pulse 91 94 Oximetry 08/13/18 08/13/18 08/13/18 10:49 11:00 11:04 Temperature Pulse Rate 88 83 91 Respiratory Rate Blood Pressure 96/71 113/81 (mmHg) O2 Sat by Pulse 93 95 95 Oximetry 08/13/18 08/13/18 08/13/18 11:19 11:34 11:49 Temperature Pulse Rate 96 154 132 Respiratory Rate Blood Pressure 93/65 102/81 92/69 (mmHg) O2 Sat by Pulse 92 92 93 Oximetry 08/13/18 08/13/18 08/13/18 11:58 12:00 12:04 Temperature Pulse Rate 99 150 Respiratory Rate Blood Pressure 92/69 106/77 (mmHg) O2 Sat by Pulse 98 97 Oximetry 08/13/18 08/13/18 08/13/18 12:20 12:34 12:49 Temperature Pulse Rate 150 97 85 Respiratory Rate Blood Pressure 98/77 107/43 89/71 (mmHg) O2 Sat by Pulse 98 98 Oximetry 08/13/18 08/13/18 08/13/18 13:00 13:29 13:32 Temperature Pulse Rate 73 128 148 Respiratory 19 20 Rate Blood Pressure 92/79 142/80 (mmHg) O2 Sat by Pulse 98 95 95 Oximetry 08/13/18 08/13/18 08/13/18 13:34 13:46 13:54 Temperature 97.7 F Pulse Rate 135 Respiratory 20 22 29 Rate Blood Pressure 142/80 109/84 109/84 (mmHg) O2 Sat by Pulse 94 93 94 Oximetry 08/13/18 08/13/18 08/13/18 13:55 14:00 14:01 Temperature Pulse Rate Respiratory 17 21 14 Rate Blood Pressure 109/84 80/74 (mmHg) O2 Sat by Pulse 91 89 90 Oximetry 08/13/18 08/13/18 08/13/18 14:26 14:30 14:43 Temperature Pulse Rate 122 127 Respiratory 20 20 20 Rate Blood Pressure 103/79 97/77 (mmHg) O2 Sat by Pulse 93 93 Oximetry 08/13/18 08/13/18 15:00 15:01 Temperature Pulse Rate 60 62 Respiratory 13 26 Rate Blood Pressure 120/82 (mmHg) O2 Sat by Pulse 97 96 Oximetry Oxygen Devices in Use Now: Nasal Cannula Appearance: alert, NAD Eyes: No Scleral Icterus, PERRLA Ears/Nose/Mouth/Throat: Clear Oropharnyx, Mucous Membranes Moist Neck: NL Appearance and Movements; NL JVP, Trachea Midline Respiratory: - - tight, poor air entry, bilateral wheeze Cardiovascular: - - afib with RVR Abdominal: NL Sounds; No Tenderness; No Distention Extremities: No Edema Neurological: Alert and Oriented x 3, NL Gait Nutrition: Taking PO's Result Diagrams: 08/13/18 06:46 08/13/18 06:46 Microbiology and Other Data: Microbiology 08/09/18 16:35 Influenza Types A,B Antigen - Final Nasal Specimen received for Influenza A/B Molecular testing Assess/Plan/Problems-Billing Assessment: Patient is a 57yo male with a PMH for AFib, SSS with pacemaker, COPD, and hepatitis C with SVR who is admitted for Severe shortness of breath and treatment of a COPD exacerbation with slow improvement. - Patient Problems (1) Atrial fibrillation with RVR Code(s): I48.91 - UNSPECIFIED ATRIAL FIBRILLATION SNOMED Code(s): 087106133960049 Comment: - Cardizem being titrated with conversion noted again today - Will wait on DC cardizem, as patient continued to flip back into RVR shortly after drip DCd last night x2, continue drip at 2.5mg/hr until next dose of metoprolol, if HR remains stable will DC later tonight - Continue short acting metoprolol with increased amio dose - Cardiology following (2) Acute and chronic respiratory failure with hypoxia Code(s): J96.21 - ACUTE AND CHRONIC RESPIRATORY FAILURE WITH HYPOXIA SNOMED Code(s): 54999267 Comment: - 2/2 COPD exacerbation - Continue nebs, taper steroids, wean O2 as tolerated (3) COPD exacerbation Code(s): J44.1 - CHRONIC OBSTRUCTIVE PULMONARY DISEASE W (ACUTE) EXACERBATION SNOMED Code(s): 364396540713791 Comment: - Severe COPD exacerbation with wheezing; suspect secondary to environmental factors of work exposure - Recently hospiatlization, so HCAP should be on differential but no noted pna on CxR; pulmonology who agrees to continue Doxy at this time and monitor - Dr. Franco recommends flutter valve and f/u CT chest in 1 year - Change to half strength xopenex PRN, given accelerated HR and continue duonebs Q6h - Taper prednisone given HR (4) Lower extremity edema Code(s): R60.0 - LOCALIZED EDEMA SNOMED Code(s): 490119131 Comment: - Left > right; patient reports this is typical for him, but concerned about recent weight gain - No DVT on US, but he does have a bakers cysts noted on imaging - Continue torsemide, had extra dose lasix yesterday (5) Hx of ulcerative colitis Code(s): Z87.19 - PERSONAL HISTORY OF OTHER DISEASES OF THE DIGESTIVE SYSTEM SNOMED Code(s): 360703020 Comment: - Complete colectomy w/ ileostomy; no signs of disease activity (6) Hypertension Code(s): I10 - ESSENTIAL (PRIMARY) HYPERTENSION SNOMED Code(s): 60676380 Comment: - changed metoprolol to short-acting given current cardiac issues - hold losartan for hypotension (7) DVT prophylaxis Current Visit: Yes Status: Acute Code(s): PUF0838 - SNOMED Code(s): 321983909 Comment: - Marielena. (8) Full code status Code(s): Z78.9 - OTHER SPECIFIED HEALTH STATUS SNOMED Code(s): 489254997 Status and Disposition: Inpatient, consider downgrade from ICU tomorrow.
[2018-08-13] MEDS ORDERED: Spiriva Inhaler DEVICE* 1 EACH DEVICE SCH (16:00)
[2018-08-13] MEDS ORDERED: Spiriva Inhaler DEVICE* 1 EACH DEVICE INH SCH (16:00)
[2018-08-13] MEDS: NS 0.9% 1000 ML* 1,000 ML IV SCH (17:03)
--- NOTE | 2018-08-13 21:58 | CONS ---
CC: Dr. Heredia; Dr. Raffi Kennedy CARDIOLOGY CONSULTATION: DATE OF CONSULT: 08/13/18 REASON FOR CONSULT: Atrial fibrillation with rapid ventricular rate. CHIEF COMPLAINT: Shortness of breath. HISTORY OF PRESENT ILLNESS: Mr. Yen is a 57-year-old gentleman followed in the [facility] with a past cardiac history of paroxysmal atrial fibrillation, for which he has undergone ablation and has recently started on amiodarone. The patient was admitted with pneumonia and chronic obstructive pulmonary disease exacerbation (full details in Dr. Franco's notes). He has been treated with antibiotics, prednisone and inhalers and last night developed atrial fibrillation with a rapid ventricular rate and his blood pressure dropped. He was placed on a Cardizem drip this morning. Because of low blood pressure, his metoprolol was held although Cozaar was given. During the morning, he has been predominantly in AFib but has gone out several times on his own to normal sinus rhythm. The patient states he is more short of breath now mildly and gets intermittently dizzy and nurses reported that when he feels dizzy, he gets diaphoretic. He denies chest pain, pressure, heaviness. PAST MEDICAL HISTORY: The patient has a past medical history of: 1. Paroxysmal atrial fibrillation status post ablation in [place], failed Tikosyn (V- tach), recently started on amiodarone. 2. Atrial flutter. 3. COPD. 4. Sick sinus syndrome with pacemaker. 5. Ulcerative colitis status post colectomy and ileostomy. 6. Obstructive sleep apnea, uses CPAP. 7. 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 8. Hepatitis C. PAST SURGICAL HISTORY: 1. Ileostomy 2. Pacemaker implantation 11/04/17. 3. Afib/PVI 12/24/17 ([facility]). 4. Knee arthroscopy. MEDICATIONS: Current outpatient medications include: 1. Albuterol inhaler 2 puffs 4 times a day. 2. Ellipta 1 inhaled daily. 3. Budesonide (Symbicort) 1 puff daily. 4. Xarelto 20 mg a day. 5. Magnesium oxide 800 mg b.i.d. 6. Toprol-XL 150 mg b.i.d. 7. Losartan 50 mg a day. 8. Amiodarone 200 mg a day. 9. Diltiazem CD 30 mg p.o. b.i.d. p.r.n. 10. Lasix 20 mg a day. Inpatient medications include: 1. Tylenol p.r.n. 2. Zofran p.r.n. 3. Albuterol nebulizers q.6 hours while awake. 4. Imodium p.r.n. 5. Doxycycline 100 mg b.i.d. 6. Rivaroxaban 20 mg a day. 7. Magnesium oxide 800 mg b.i.d. 8. Dulera 100/5 MDI 2 puffs a day. 9. Robitussin p.r.n. 10. Torsemide 20 mg a day. 11. Losartan 50 mg a day. 12. Amiodarone 200 mg a day. 13. Diltiazem drip. 14. Prednisone 40 mg a day. 15. Spiriva 10 mg a day. 16. He received digoxin once. He was on higher doses of prednisone. It appears the oral diltiazem was not initiated on admission. ALLERGIES: Include CIPROFLOXACIN. FAMILY HISTORY: Significant in that both parents have , his mother from a motor vehicle accident and his father in the [place] war. SOCIAL HISTORY: The patient stopped smoking 2 years ago, former heavy smoker. Drinks 2 alcoholic beverages a day, prior heavy alcohol intake per past records. Intermittently works making [employer]. REVIEW OF SYSTEMS: A 14-point review of systems was performed. He has been short of breath since admission, slightly worse since the rhythm issue recurred. Denies chest pain, pressure, heaviness; has some orthopnea. No PND. He has been using his oxygen in the hospital. Denies diarrhea, constipation, or nausea since hospitalization. All other 14-point review of systems was negative. PHYSICAL EXAM: The patient is 5 feet 6 inches, weighs 151 pounds with a BMI of 24. Vital signs at the time I saw him, heart rate 130s to 150s, blood pressure 99/59, oxygen saturation 91% to 94% on oxygen and temperature this morning was 98.5. General Appearance: Lean, fit appearing, older middle-aged gentleman, oxygen on, sitting upright in the edge of the bed, appears short of breath but calm. Psychologically, pleasant and cooperative. Able to have a discussion. Neurologically, awake, alert, oriented to person, place, and time. Grossly normal sensory and motor function in the upper and lower extremities in the bed. Skin: Warm and dry and no appreciable cyanosis of the lips. HEENT: Pupils are equal and round. Mucous membranes moist. Neck: Some accessory muscle use. No appreciable increase in JVP. Breath sounds very distant but no wheezing, rales, or rhonchi. Coronary: Also distant S1, S2. Quite tachycardic without murmurs. Abdomen: Active bowel sounds and nontender. Lower extremities were free of edema. 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 He has been going in and out of atrial fibrillation with rapid ventricular rates in the 150s to normal sinus rhythm, 12-lead ECG in the atrial fibrillation today not obtained. ECG from and 08/07/18 reviewed, all showing normal sinus rhythm with some subtle nonspecific ST changes and the rate around 60 beats a minute. Venous Doppler from 08/09/18 was negative for DVT (done for left lower extremity swelling). Chest x-ray from 08/07/18 showed stigmata of obstructive lung disease with no acute pulmonary process. An echo from 07/20/18 showed mild left ventricular hypertrophy, ejection fraction of 55% to 60%, normal right ventricular systolic function, trace tricuspid insufficiency and on 11/20/17, the patient's left ventricular ejection fraction was 20% to 25% with significant MR and TR. DIAGNOSTIC STUDIES/LAB DATA: White count of 11.9, hematocrit 37, platelets 145, 000. INR 2.22. Sodium 136, potassium 4.1, chloride 99, BUN 39, creatinine 1.25 , glucose 94. Troponin on 08/10/18 was 0.00. C-reactive protein on 08/07/18 was 1.69. AST on 08/09/18, 25 and ALT 47. Toxicology 08/13/18, digoxin 1.1 and serologies, influenza A and B are negative. No thyroid checked. SUMMARY: In summary, Mr. Yen is a 57-year-old gentleman with significant COPD, admitted chronic obstructive pulmonary disease exacerbation on the , who has been treated with prednisone, antibiotics, and a pulmonary cocktail including inhalers and Spiriva, who then went back into atrial fibrillation yesterday and has been in and out with rapid ventricular rates several times since. The atrial fibrillation has been associated with increased shortness of breath and hypotension and with diaphoresis. He has a history of tachycardic induced cardiomyopathy. This morning, the patient's high dose metoprolol was held. On admission, his outpatient oral diltiazem was held. Amiodarone has been continued. The atrial fibrillation, I think is related to his pulmonary issues, both chronic and acute. His treatment for the chronic obstructive pulmonary disease exacerbation can also increase propensity for atrial fibrillation as well. This morning, holding the beta-reno puts him at risk for rebound tachyarrhythmias as well. I gave the patient additional amiodarone, an additional 800 today. I have recommended moving him to the intensive care unit and then giving him short- acting metoprolol to prevent rebound tachycardia and to facilitate titration of his diltiazem drip. 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 He can follow up with Dr. Kennedy and Dr. Dutta for that. In the short term, continuation of optimization of his pulmonary function, continued optimization of his electrolytes, keeping potassium and magnesium in good levels. I have recommended review of his pulmonary medications to see if any adjustments could be made to minimize the chance of secondary atrial ectopy. I would recommend increasing amiodarone to 400 mg a day for now and Dr. Kennedy can decide on dose titration as an outpatient. For the patient's history of tachycardic induced CM, updated echo can be considered and continuation of beta reno and ARB important. The patient's renal insufficiency is noted. This has occurred starting the , was not present at admission and I see IV fluid has been added today, but additionally I would consider adjustment of his torsemide and attempt to keep euvolemic. Additional recommendations will be made pending his response to the above measures. Thank you for allowing me to assist in this nice gentleman's care. [id number]/[facility] #: [id number] ELIUD
[2018-08-14] MEDS: Albuterol/Ipratropium NEB.SOL* Albuterol 2.5 MG/Ipratropium 0.5 MG 3 ML INH SCH ×4 (00:43→19:32)
[2018-08-14] MEDS ORDERED: hydrALAZINE IV* 20 MG/ML VIAL IV SLOW PU PRN (02:57)
[2018-08-14] MEDS: Metoprolol Tartrate TAB* 50 mg PO SCH ×3 (05:59→22:02)
[2018-08-14 06:20] LABS: Hematocrit 39 % (42-52); Hemoglobin 13.4 g/dl (14.0-18.0); Mean Corpuscular HGB Conc 34 g/dl (31-36); Mean Corpuscular Hemoglobin 34 pg (27-31); Mean Corpuscular Volume 97 fL (80-94); Mean Platelet Volume 7.7 fL (7.4-10.4); Platelet Count 171 10^3/ul (150-450); Red Cell Distribution Width 14 % (10.5-15); White Blood Count 13.1 10^3/ul (3.5-10.8)
[2018-08-14 06:39] LABS: EGFR Non-African American 63.6 (>60)
[2018-08-14 06:41] LABS: ABS Basophils 0 10^3/ul (0-0.2); ABS Eosinophils 0.1 10^3/ul (0-0.6); ABS Monocytes 1.5 10^3/ul (0-0.8); ABS Neutrophils 10.4 10^3/ul (1.5-7.7); ABS Nucleated RBC 0 10^3/ul; Lymphocyte % 7.9 % (25-47); Nucleated Red Blood Cells % 0.1
[2018-08-14] MEDS: Mometasone/Formoter 100/5 MDI INH SCH ×2 (07:18→19:32)
[2018-08-14] MEDS: Tiotropium CAP.INH* CAP.INH/18 MCG (USE ORDER SET !) INH SCH (07:18)
[2018-08-14] MEDS: Magnesium Oxide TAB* 400 MG PO SCH ×2 (08:19→22:02)
[2018-08-14] MEDS: Amiodarone TAB* 400 MG PO SCH (08:19)
[2018-08-14] MEDS: DOXYcycline CAP(*) 100 MG PO SCH ×2 (08:20→22:02)
[2018-08-14] MEDS: predniSONE TAB* 20 MG PO SCH (08:20)
[2018-08-14] MEDS: Torsemide TAB* 20 MG PO SCH (09:31)
[2018-08-14] MEDS: Rivaroxaban TAB(*) 20 MG TAB PO SCH (09:31)
[2018-08-14] MEDS: Losartan TAB* 25 MG PO SCH (09:34)
--- NOTE | 2018-08-14 10:55 | PN ---
Subjective Date of Service: 08/14/18 - CC: cough, sob, improving Interval History: The patient feels much better today. Leg swelling has resolved, breathing is better. Non productive cough persists. Pt off diltiazem gtt and IVF since last night. Medications Active Medications: Acetaminophen (Tylenol Tab*) 650 mg PO Q6H PRN PRN Reason: PAIN Albuterol/Ipratropium (Duoneb (Albuterol 2.5 Mg/Ipratropium 0.5 Mg)) 1 neb INH [id number] AWAKE [facility] Last Admin: 08/14/18 07:16 Dose: 1 neb Amiodarone HCl (Cordarone Tab*) 400 mg PO DAILY [facility] Last Admin: 08/14/18 08:19 Dose: 400 mg Device (Tiotropium Inhaler Device*) 1 each .SEE ORDER .USE w/ SPIRIVA CAPS [facility] Doxycycline Hyclate (Vibramycin Cap(*)) 100 mg PO BID [facility] Last Admin: 08/14/18 08:20 Dose: 100 mg Guaifenesin/Dextromethorphan (Robitussin Dm*) 10 ml PO Q4H PRN PRN Reason: COUGH Last Admin: 08/12/18 11:00 Dose: 10 ml Hydralazine HCl (Apresoline Iv*) 5 mg IV SLOW PU Q6H PRN PRN Reason: SBP >150, DBP >100 Last Admin: 08/14/18 03:07 Dose: 5 mg Levalbuterol HCl (Xopenex 0.63mg/3ml Neb*) 0.63 mg INH Q4H PRN PRN Reason: SOB/WHEEZING Loperamide HCl (Imodium Cap*) 2 mg PO Q4H PRN PRN Reason: DIARRHEA Losartan Potassium (Cozaar Tab*) 50 mg PO DAILY [facility] Last Admin: 08/14/18 09:34 Dose: 50 mg Magnesium Oxide (Magox 400 Tab*) 800 mg PO BID [facility] Last Admin: 08/14/18 08:19 Dose: 800 mg Metoprolol Tartrate (Lopressor Tab*) 50 mg PO Q8HR [facility] Last Admin: 08/14/18 05:59 Dose: 50 mg Mometasone Furoate/Formoterol Fumar (Dulera 100/5 Mdi*) 2 puff INH BID [facility] Last Admin: 08/14/18 07:18 Dose: 2 puff Ondansetron HCl (Zofran Inj*) 4 mg IV Q6H PRN PRN Reason: NAUSEA Prednisone (Deltasone Tab*) 40 mg PO DAILY [facility] Last Admin: 08/14/18 08:20 Dose: 40 mg Rivaroxaban (Xarelto(*)) 20 mg PO DAILY [facility] Last Admin: 08/14/18 09:31 Dose: 20 mg Tiotropium [place] (Spiriva Cap.Inh*) 1 cap INH DAILY [facility] Last Admin: 08/14/18 07:18 Dose: 1 cap Torsemide (Demadex*) 20 mg PO DAILY [facility] Last Admin: 08/14/18 09:31 Dose: 20 mg Objective Vital Signs: Temp Pulse Resp BP Pulse Ox 97.1 F 62 17 127/80 95 08/14/18 08:00 08/14/18 09:01 08/14/18 09:01 08/14/18 09:00 08/14/18 09:01 Oxygen Devices in Use Now: Nasal Cannula Appearance: Somewhat older gentleman, seated on edge of bed, appears comfortable. Eyes: No Scleral Icterus, PERRLA Ears/Nose/Mouth/Throat: Clear Oropharnyx, Mucous Membranes Moist Neck: NL Appearance and Movements; NL JVP, Trachea Midline Respiratory: Symmetrical Chest Expansion and Respiratory Effort - very distant breath sounds, no rhonchi wheezes or rales, +rhonchorous cough. Cardiovascular: RRR Abdominal: NL Sounds; No Tenderness; No Distention Extremities: No Edema Skin: No Rash or Ulcers Neurological: Alert and Oriented x 3 Laboratory Results: 08/14/18 06:00 08/14/18 06:00 INR (Anticoag Therapy) 2.22 (0.77-1.02) H 08/07/18 13:04 Total Bilirubin 0.80 mg/dL (0.2-1.0) 08/14/18 06:00 AST 46 U/L (13-39) H 08/14/18 06:00 ALT 93 U/L (7-52) H 08/14/18 06:00 Alkaline Phosphatase 49 U/L (34-104) 08/14/18 06:00 B-Natriuretic Peptide 138 pg/mL (<=100) H 08/07/18 13:05 Total Protein 5.7 g/dL (6.4-8.9) L 08/14/18 06:00 Albumin 3.8 g/dL (3.2-5.2) 08/14/18 06:00 Globulin 1.9 g/dL (2-4) L 08/14/18 06:00 Albumin/Globulin Ratio 2.0 (1-3) 08/14/18 06:00 08/07/18 08/10/18 13:04 18:51 Troponin I 0.00 0.00 EKG Data: Monitor: NSR, no afib overnight. Assessment/Plan 57 yo with severe COPD admitted with exacerbation. Hx PAF, SSS, tachycardic CM (normalized when last checked) who developed AF, RVR and symptoms who responded to increased amiodarone and resumption of beta reno. PAF: -Continue amiodarone 400 mg/day for now, Dr Clark can adjust as outpatient. -Continue anticoagulation. -Recommend adding KCl daily/w/torsemide to keep K+ level 4-4.5. CM: -Check limited for EF in patient or out patient to update. -Continue ARB and BB. -Pt doing well on lower BB (metorolol) dose short acting, if/when you change to long acting I would keep at the current total dose of 150 daily ( documents state he was previously on 300 mg/day). -I would not resume oral diltiazem. OK to go to floor from cardiac standpoint.
--- NOTE | 2018-08-14 13:51 | PN ---
Subjective Date of Service: 08/14/18 Interval History: Mr. Yen feels much better today compared to yesterday. He has not been in afib since midday yesterday. He reports that he can tell when he is in afib as he feels like his heart is "cramping." He does not actually have pain, but rather discomfort. He also became SOB, but he is denying any SOB today. He reports episodes of afib when he is at home, though the episode yesterday was longer than anything he experienced recently. He reports his LLE edema has resolved as of this morning. He is still using 2L NC PRN. He would ideally like to go home on Thursday. Denies CP, N/V/D, dizziness. Family History: Unchanged from Admission Social History: Unchanged from Admission Past Medical History: Unchanged from Admission Objective Active Medications: Acetaminophen (Tylenol Tab*) 650 mg PO Q6H PRN PAIN Albuterol/Ipratropium (Duoneb (Albuterol 2.5 Mg/Ipratropium 0.5 Mg)) 1 neb INH [id number] AWAKE JUSTIN Amiodarone HCl (Cordarone Tab*) 400 mg PO DAILY JUSTIN Device (Tiotropium Inhaler Device*) 1 each .SEE ORDER .USE w/ SPIRIVA CAPS JUSTIN Doxycycline Hyclate (Vibramycin Cap(*)) 100 mg PO BID JUSTIN Guaifenesin/Dextromethorphan (Robitussin Dm*) 10 ml PO Q4H PRN COUGH Hydralazine HCl (Apresoline Iv*) 5 mg IV SLOW PU Q6H PRN SBP >150, DBP >100 Levalbuterol HCl (Xopenex 0.63mg/3ml Neb*) 0.63 mg INH Q4H PRN SOB/WHEEZING Loperamide HCl (Imodium Cap*) 2 mg PO Q4H PRN DIARRHEA Losartan Potassium (Cozaar Tab*) 50 mg PO DAILY JUSTIN Magnesium Oxide (Magox 400 Tab*) 800 mg PO BID JUSTIN Metoprolol Tartrate (Lopressor Tab*) 50 mg PO Q8HR JUSTIN Mometasone Furoate/Formoterol Fumar (Dulera 100/5 Mdi*) 2 puff INH BID JUSTIN Ondansetron HCl (Zofran Inj*) 4 mg IV Q6H PRN NAUSEA Potassium Chloride (Klor Con Er Tab*) 20 meq PO DAILY [facility] Prednisone (Deltasone Tab*) 40 mg PO DAILY JUSTIN Rivaroxaban (Xarelto(*)) 20 mg PO DAILY [facility] Tiotropium [place] (Spiriva Cap.Inh*) 1 cap INH DAILY [facility] Torsemide (Demadex*) 20 mg PO DAILY [facility] Vital Signs - 8 hr 08/14/18 08/14/18 08/14/18 06:00 06:01 06:30 Temperature Pulse Rate 65 62 60 Respiratory 17 12 19 Rate Blood Pressure 122/77 140/83 (mmHg) O2 Sat by Pulse 99 99 96 Oximetry 08/14/18 08/14/18 08/14/18 07:00 07:01 07:19 Temperature Pulse Rate 60 60 60 Respiratory 15 18 16 Rate Blood Pressure 142/87 (mmHg) O2 Sat by Pulse 98 97 98 Oximetry 08/14/18 08/14/18 08/14/18 07:30 08:00 08:01 Temperature 97.1 F Pulse Rate 63 60 60 Respiratory 16 13 15 Rate Blood Pressure 105/62 144/88 (mmHg) O2 Sat by Pulse 92 99 99 Oximetry 08/14/18 08/14/18 08/14/18 08:30 09:00 09:01 Temperature Pulse Rate 60 93 62 Respiratory 13 14 17 Rate Blood Pressure 126/78 127/80 (mmHg) O2 Sat by Pulse 97 92 95 Oximetry Oxygen Devices in Use Now: Nasal Cannula - 2L PRN Appearance: Middle-aged male sitting in bed in NAD Eyes: No Scleral Icterus Ears/Nose/Mouth/Throat: Mucous Membranes Moist Neck: NL Appearance and Movements; NL JVP, Trachea Midline Respiratory: Symmetrical Chest Expansion and Respiratory Effort, - - Faint expiratory wheezes to bilat bases, otherwise diminished throughout Cardiovascular: NL Sounds; No Murmurs; No JVD, RRR Abdominal: NL Sounds; No Tenderness; No Distention Extremities: No Edema, No Clubbing, Cyanosis Skin: No Rash or Ulcers Neurological: Alert and Oriented x 3, NL Sensation, NL Muscle Strength and Tone Lines/Tubes/Other Access: Clean, Dry and Intact Peripheral IV Nutrition: Taking PO's Result Diagrams: 08/14/18 06:00 08/14/18 06:00 Assess/Plan/Problems-Billing Assessment: Patient is a 57yo male with a PMH for AFib, SSS with pacemaker, COPD, and hepatitis C with SVR who is admitted for Severe shortness of breath and treatment of a COPD exacerbation with slow improvement. Hospital stay complicated by rapid afib. - Patient Problems (1) Atrial fibrillation with RVR Current Visit: Yes Status: Acute Code(s): I48.91 - UNSPECIFIED ATRIAL FIBRILLATION SNOMED Code(s): 378365917136571 Comment: - Cardizem drip stopped yesterday - Transfer back to floor - Cardiology following; recommends limited TTE to eval EF, KCl daily, do not resume PO cardizem, continue ARB and BB - Continue short acting metoprolol and amiodarone 400mg (2) Acute and chronic respiratory failure with hypoxia Current Visit: Yes Status: Acute Code(s): J96.21 - ACUTE AND CHRONIC RESPIRATORY FAILURE WITH HYPOXIA SNOMED Code(s): 88071979 Comment: - 2/2 COPD exacerbation - Continue nebs, taper steroids, wean O2 as tolerated (3) COPD exacerbation Current Visit: Yes Status: Acute Code(s): J44.1 - CHRONIC OBSTRUCTIVE PULMONARY DISEASE W (ACUTE) EXACERBATION SNOMED Code(s): 244267904179436 Comment: - Severe COPD exacerbation with wheezing; suspect secondary to environmental factors of work exposure - Recently hospiatlization, so HCAP should be on differential but no noted pna on CxR; pulmonology who agrees to continue doxy at this time and monitor - Dr. Franco recommends flutter valve and f/u CT chest in 1 year - Continue xopenex PRN and duonebs q6h - Continue prednisone; will need a slow taper at d/c (4) Paroxysmal A-fib Current Visit: Yes Status: Acute Code(s): I48.0 - PAROXYSMAL ATRIAL FIBRILLATION SNOMED Code(s): 864542130 Comment: - Now back in NSR; continue to monitor on tele - 2 recent hospitalizations with Afib with RVR - Continue Xarelto, amiodarone and metoprolol - Plan for ablation outpatient (scheduled for September) (5) Lower extremity edema Current Visit: Yes Status: Acute Code(s): R60.0 - LOCALIZED EDEMA SNOMED Code(s): 808586069 Comment: - Left > right; now resolved - No DVT on US, but he does have a bakers cysts noted on imaging - Continue torsemide and add KCl daily (6) Hypertension Current Visit: Yes Status: Chronic Code(s): I10 - ESSENTIAL (PRIMARY) HYPERTENSION SNOMED Code(s): 67132871 Comment: - Continue metoprolol (now on tartrate, usually on XL) and losartan (7) Hx of ulcerative colitis Current Visit: Yes Status: Chronic Priority: Medium Code(s): Z87.19 - PERSONAL HISTORY OF OTHER DISEASES OF THE DIGESTIVE SYSTEM SNOMED Code(s): 088779677 Comment: - Complete colectomy w/ ileostomy; no signs of disease activity (8) DVT prophylaxis Current Visit: Yes Status: Acute Onset Date: 12/26/14 Code(s): SUG2211 - SNOMED Code(s): 857544558 Comment: - [place] (9) Full code status Current Visit: Yes Status: Acute Onset Date: 12/26/14 Code(s): Z78.9 - OTHER SPECIFIED HEALTH STATUS SNOMED Code(s): 107112785 Status and Disposition: Inpatient. Continued hospitalization for COPD exacerbation with slow response to treatment and afib with RVR. Anticipate d/c home when medically stable, likely 1-2 more days.
[2018-08-15] MEDS: Albuterol/Ipratropium NEB.SOL* Albuterol 2.5 MG/Ipratropium 0.5 MG 3 ML INH SCH ×4 (01:03→20:25)
[2018-08-15] MEDS: Metoprolol Tartrate TAB* 50 mg PO SCH ×3 (06:07→21:12)
[2018-08-15 06:44] LABS: Hematocrit 40 % (42-52); Hemoglobin 13.3 g/dl (14.0-18.0); Mean Corpuscular HGB Conc 34 g/dl (31-36); Mean Corpuscular Hemoglobin 33 pg (27-31); Mean Corpuscular Volume 98 fL (80-94); Mean Platelet Volume 8.1 fL (7.4-10.4); Platelet Count 166 10^3/ul (150-450); Red Blood Count 4.06 10^6/ul (4.00-5.40); Red Cell Distribution Width 14 % (10.5-15); White Blood Count 12.5 10^3/ul (3.5-10.8)
[2018-08-15 06:54] LABS: EGFR Non-African American 55.9 (>60)
[2018-08-15] MEDS: Tiotropium CAP.INH* CAP.INH/18 MCG (USE ORDER SET !) INH SCH (07:08)
[2018-08-15 07:09] LABS: ABS Basophils 0 10^3/ul (0-0.2); ABS Eosinophils 0.1 10^3/ul (0-0.6); ABS Lymphocytes 1.3 10^3/ul (1.0-4.8); ABS Monocytes 1.4 10^3/ul (0-0.8); ABS Neutrophils 9.6 10^3/ul (1.5-7.7); ABS Nucleated RBC 0 10^3/ul; Eosinophil % 1.1 % (0-6); Lymphocyte % 10.6 % (25-47); Nucleated Red Blood Cells % 0.1
[2018-08-15] MEDS: Mometasone/Formoter 100/5 MDI INH SCH ×2 (07:09→20:34)
[2018-08-15] MEDS ORDERED: Magnesium Sulfate 2 GM IV* 2 GM/50 ML BAG IVPB ONE (07:16)
[2018-08-15] MEDS: Magnesium Oxide TAB* 400 MG PO SCH ×2 (08:24→21:12)
[2018-08-15] MEDS: Torsemide TAB* 20 MG PO SCH (08:24)
[2018-08-15] MEDS: Potassium Chlor TAB* 20 MEQ TAB.ER PO SCH (08:24)
[2018-08-15] MEDS: DOXYcycline CAP(*) 100 MG PO SCH ×2 (08:24→21:12)
[2018-08-15] MEDS: predniSONE TAB* 20 MG PO SCH (08:24)
[2018-08-15] MEDS: Losartan TAB* 25 MG PO SCH (08:25)
[2018-08-15] MEDS: Rivaroxaban TAB(*) 20 MG TAB PO SCH (08:34)
[2018-08-15] MEDS: Amiodarone TAB* 400 MG PO SCH (09:14)
--- NOTE | 2018-08-15 12:10 | ECHO ---
Patient: REMA MARVIN [facility] Rec#: [id number] : 1960 Date: 08/15/2018 Age: 57y Height: 168 cm / 66.1 in Weight: 68 kg / 149.9 lbs Sex: M BSA: 1.77 Room#: [facility] Admit Date#: 08/08/2018 Type: Inpatient Referring: Chayo Garcia Reading: Annmarie Chavez MD Planning Specialist: Jamia Adan RDCS CC: Allyn Heredia MD Transthoracic Echocardiogram Indication: Edema BP: 112/70 HR: 60 Rhythm: NSR Findings History: A-fib, s/p ablation, HTN, COPD, pacer. This is a LIMITED study to evaluate LVEF. Technical Comments: The study quality is fair. Completed at 1045. Left Ventricle: The left ventricular chamber size is normal. Global left ventricular wall motion and contractility are within normal limits. There is normal left ventricular systolic function. The estimated ejection fraction is 55-60%. Right Ventricle: Moderator Band present. The right ventricular cavity size is normal. The right ventricular global systolic function is normal. Pericardium: There is no significant pericardial effusion. A pericardial fat pad is visualized. Conclusions Limited study to re evaluate EF post PAF and RV w/COPD exasserbation. The left ventricular chamber size is normal. Global left ventricular wall motion and contractility are within normal limits. The estimated ejection fraction is 55-60%. The right ventricular global systolic function is normal. Compared with prior echo of 07/21/18, stable ventricular function.
--- NOTE | 2018-08-15 12:42 | PN ---
Subjective Date of Service: 08/15/18 Interval History: Mr. Yen feels better today. He has been up ambulating in the halls frequently. He denies SOB at rest or on exertion. He has not had any further episode of afib on tele nor any further chest pressure/discomfort. He is anxious to return home, but understands that he is at risk for another exacerbation due to his recent history of exacerbations. He is looking forward to his appointment in Aug/Sep for an ablation. He also confirms that he will not be returning to work d/t occupational triggers of his COPD. He denies N/V/D , dizziness. Family History: Unchanged from Admission Social History: Unchanged from Admission Past Medical History: Unchanged from Admission Objective Active Medications: Acetaminophen (Tylenol Tab*) 650 mg PO Q6H PRN PAIN Albuterol/Ipratropium (Duoneb (Albuterol 2.5 Mg/Ipratropium 0.5 Mg)) 1 neb INH [id number] AWAKE [facility] Amiodarone HCl (Cordarone Tab*) 400 mg PO DAILY [facility] Device (Tiotropium Inhaler Device*) 1 each .SEE ORDER .USE w/ SPIRIVA CAPS JUSTIN Doxycycline Hyclate (Vibramycin Cap(*)) 100 mg PO BID JUSTIN Guaifenesin/Dextromethorphan (Robitussin Dm*) 10 ml PO Q4H PRN COUGH Hydralazine HCl (Apresoline Iv*) 5 mg IV SLOW PU Q6H PRN SBP >150, DBP >100 Levalbuterol HCl (Xopenex 0.63mg/3ml Neb*) 0.63 mg INH Q4H PRN SOB/WHEEZING Loperamide HCl (Imodium Cap*) 2 mg PO Q4H PRN DIARRHEA Losartan Potassium (Cozaar Tab*) 50 mg PO DAILY JUSTIN Magnesium Oxide (Magox 400 Tab*) 800 mg PO BID JUSTIN Metoprolol Tartrate (Lopressor Tab*) 50 mg PO Q8HR JUSTIN Mometasone Furoate/Formoterol Fumar (Dulera 100/5 Mdi*) 2 puff INH BID JUSTIN Ondansetron HCl (Zofran Inj*) 4 mg IV Q6H PRN NAUSEA Potassium Chloride (Klor Con Er Tab*) 20 meq PO DAILY [facility] Prednisone (Deltasone Tab*) 40 mg PO DAILY JUSTIN Rivaroxaban (Xarelto(*)) 20 mg PO DAILY [facility] Tiotropium [place] (Spiriva Cap.Inh*) 1 cap INH DAILY [facility] Torsemide (Demadex*) 20 mg PO DAILY [facility] Vital Signs - 8 hr 08/15/18 08/15/18 08/15/18 06:07 07:14 07:24 Temperature Pulse Rate 67 Respiratory 15 16 Rate Blood Pressure 108/82 (mmHg) O2 Sat by Pulse 93 Oximetry 08/15/18 08/15/18 07:40 11:17 Temperature 98.5 F 97.1 F Pulse Rate 64 69 Respiratory 18 18 Rate Blood Pressure 112/72 111/69 (mmHg) O2 Sat by Pulse 95 95 Oximetry Oxygen Devices in Use Now: None Appearance: Middle-aged male sitting in bed in NAD Eyes: No Scleral Icterus Ears/Nose/Mouth/Throat: Mucous Membranes Moist Neck: NL Appearance and Movements; NL JVP, Trachea Midline Respiratory: Symmetrical Chest Expansion and Respiratory Effort, Clear to Auscultation Cardiovascular: NL Sounds; No Murmurs; No JVD, RRR Abdominal: NL Sounds; No Tenderness; No Distention Extremities: No Edema Skin: No Rash or Ulcers Neurological: Alert and Oriented x 3, NL Sensation, NL Gait Lines/Tubes/Other Access: Clean, Dry and Intact Peripheral IV Nutrition: Taking PO's Result Diagrams: 08/15/18 05:16 08/15/18 05:16 Assess/Plan/Problems-Billing Assessment: Patient is a 57yo male with a PMH for AFib, SSS with pacemaker, COPD, and hepatitis C with SVR who is admitted for Severe shortness of breath and treatment of a COPD exacerbation with slow improvement. Hospital stay complicated by rapid afib. - Patient Problems (1) Atrial fibrillation with RVR Current Visit: Yes Status: Acute Code(s): I48.91 - UNSPECIFIED ATRIAL FIBRILLATION SNOMED Code(s): 904105469458736 Comment: - No further episodes of afib on tele - Cardiology following; recommends KCl daily, do not resume PO cardizem, continue ARB and BB - Limited echo shows EF 55-60%, unchanged from last echo - Continue short acting metoprolol and amiodarone 400mg (2) Acute and chronic respiratory failure with hypoxia Current Visit: Yes Status: Acute Code(s): J96.21 - ACUTE AND CHRONIC RESPIRATORY FAILURE WITH HYPOXIA SNOMED Code(s): 88328887 Comment: - 2/2 COPD exacerbation - Continue nebs, taper steroids (3) COPD exacerbation Current Visit: Yes Status: Acute Code(s): J44.1 - CHRONIC OBSTRUCTIVE PULMONARY DISEASE W (ACUTE) EXACERBATION SNOMED Code(s): 988585320338541 Comment: - Severe COPD exacerbation with wheezing; suspect secondary to environmental factors of work exposure - Recently hospiatlization, so HCAP should be on differential but no noted pna on CxR; pulmonology who agrees to continue doxy at this time and monitor - Dr. Franco recommends flutter valve and f/u CT chest in 1 year - Continue xopenex PRN and duonebs q6h - Continue prednisone; will need a slow taper at d/c (4) Paroxysmal A-fib Current Visit: Yes Status: Acute Code(s): I48.0 - PAROXYSMAL ATRIAL FIBRILLATION SNOMED Code(s): 520839536 Comment: - 2 recent hospitalizations with Afib with RVR - Continue Xarelto, amiodarone and metoprolol - Plan for ablation outpatient (scheduled for ) (5) Lower extremity edema Current Visit: Yes Status: Acute Code(s): R60.0 - LOCALIZED EDEMA SNOMED Code(s): 985565137 Comment: - Left > right; now resolved - No DVT on US, but he does have a bakers cysts noted on imaging - Decrease torsemide to 10mg daily d/t rising creatinine - Continue KCl daily (6) Hypertension Current Visit: Yes Status: Chronic Code(s): I10 - ESSENTIAL (PRIMARY) HYPERTENSION SNOMED Code(s): 58766932 Comment: - Continue metoprolol (now on tartrate, usually on XL) and losartan (7) Hx of ulcerative colitis Current Visit: Yes Status: Chronic Priority: Medium Code(s): Z87.19 - PERSONAL HISTORY OF OTHER DISEASES OF THE DIGESTIVE SYSTEM SNOMED Code(s): 687733716 Comment: - Complete colectomy w/ ileostomy; no signs of disease activity (8) DVT prophylaxis Current Visit: Yes Status: Acute Onset Date: 12/26/14 Code(s): TMI8451 - SNOMED Code(s): 723332956 Comment: - Xarelto (9) Full code status Current Visit: Yes Status: Acute Onset Date: 12/26/14 Code(s): Z78.9 - OTHER SPECIFIED HEALTH STATUS SNOMED Code(s): 778608773 Status and Disposition: Inpatient. Continued hospitalization for COPD exacerbation with slow response to treatment and afib with RVR. Anticipate d/c home when medically stable, possibly in the AM.
[2018-08-15] MEDS ORDERED: Metoprolol Tartrate IV* 1 MG/ML 5 ML VIAL IV PRN (21:05)
--- NOTE | 2018-08-15 21:08 | PN ---
Hospitalist Progress Note Date of Service: 08/15/18 RN called for HR in 120-130s. Advise to give PO Metoprolol due and wait 30 mins to see if PRN Metoprolol IV ordered just now is still needed, with appropriate holding orders given.
[2018-08-15] MEDS ORDERED: Diltiazem IV* 5 MG/ML 5 ML VIAL (for loading dose/IV Push) (25 MG) IV SLOW PU PRN (22:50)
[2018-08-16] MEDS: Albuterol/Ipratropium NEB.SOL* Albuterol 2.5 MG/Ipratropium 0.5 MG 3 ML INH SCH ×2 (01:09→08:14)
[2018-08-16] MEDS ORDERED: NS 0.9% 500 ML* 500 ML IV ONE (02:38)
[2018-08-16] MEDS ORDERED: Diltiazem IV* 5 MG/ML 5 ML VIAL (for loading dose/IV Push) (25 MG) IV SLOW PU ONE (02:39)
[2018-08-16] MEDS: Metoprolol Tartrate TAB* 50 mg PO SCH (05:32)
[2018-08-16 06:05] LABS: Hematocrit 41 % (42-52); Hemoglobin 13.7 g/dl (14.0-18.0); Mean Corpuscular HGB Conc 34 g/dl (31-36); Mean Corpuscular Hemoglobin 33 pg (27-31); Mean Corpuscular Volume 98 fL (80-94); Mean Platelet Volume 7.6 fL (7.4-10.4); Platelet Count 180 10^3/ul (150-450); Red Blood Count 4.14 10^6/ul (4.00-5.40); Red Cell Distribution Width 14 % (10.5-15); White Blood Count 16.2 10^3/ul (3.5-10.8)
[2018-08-16 06:24] LABS: EGFR Non-African American 52.7 (>60)
[2018-08-16 06:43] LABS: ABS Basophils 0.1 10^3/ul (0-0.2); ABS Eosinophils 0.1 10^3/ul (0-0.6); ABS Lymphocytes 1.3 10^3/ul (1.0-4.8); ABS Monocytes 1.8 10^3/ul (0-0.8); ABS Neutrophils 12.9 10^3/ul (1.5-7.7); ABS Nucleated RBC 0 10^3/ul; Eosinophil % 0.7 % (0-6); Lymphocyte % 8.2 % (25-47); Nucleated Red Blood Cells % 0
[2018-08-16] MEDS: Amiodarone TAB* 400 MG PO SCH (07:39)
[2018-08-16] MEDS: DOXYcycline CAP(*) 100 MG PO SCH (07:40)
[2018-08-16] MEDS: Rivaroxaban TAB(*) 20 MG TAB PO SCH (07:40)
[2018-08-16] MEDS: Potassium Chlor TAB* 20 MEQ TAB.ER PO SCH (07:40)
[2018-08-16] MEDS: predniSONE TAB* 20 MG PO SCH (07:40)
[2018-08-16] MEDS: Magnesium Oxide TAB* 400 MG PO SCH (07:41)
[2018-08-16] MEDS: Mometasone/Formoter 100/5 MDI INH SCH (08:16)
[2018-08-16] MEDS: Tiotropium CAP.INH* CAP.INH/18 MCG (USE ORDER SET !) INH SCH (08:17)
[2018-08-16] MEDS ORDERED: Torsemide TAB* 20 MG PO SCH (09:00)
[2018-08-16] MEDS ORDERED: Metoprolol Succinate XL TAB* 100 MG PO SCH (10:00)
[2018-08-16] MEDS: Losartan TAB* 25 MG PO SCH (10:08)
[2018-08-16 12:50] VITALS: BP 109/72
--- NOTE | 2018-08-17 13:43 | DS ---
CC: Dr. Allyn Heredia; Dr. Sanjuanita Franco; Dr. Raffi Kennedy * DISCHARGE SUMMARY: DATE OF ADMISSION: 08/07/18 DATE OF DISCHARGE: 08/16/18 PRIMARY CARE PROVIDER: Dr. Allyn Heredia. HAIRSPRING STAKER: Dr. Sanjuanita Franco. FUNERAL ARRANGER: Dr. Raffi Kennedy. ATTENDING PHYSICIAN: Dr. Eliza Kruger * (dictated by Chayo Garcia NP). PRIMARY DIAGNOSES: 1. [id number] hypoxic respiratory failure. 2. Chronic obstructive pulmonary disease exacerbation. 3. Atrial fibrillation with rapid ventricular rate. 4. Lower extremity edema. SECONDARY DIAGNOSES: 1. Hypertension. 2. History of ulcerative colitis. 3. Presence of pacemaker. CONSULTATIONS WHILE IN THE HOSPITAL: 1. Dr. Franco saw the patient in consultation on 08/09/18 for COPD exacerbation. 2. Dr. Annmarie Chavez saw the patient in consultation on 08/13/18 for atrial fibrillation with rapid ventricular rate. STUDIES WHILE IN THE HOSPITAL: 1. Chest x-ray on 08/07/18 reads as stigmata of obstructive lung disease, no acute pulmonary or cardiac process evident. 2. EKG on 08/07/18 shows normal sinus rhythm, paced, with a rate of 60, QTc 416. 3. Left leg venous Doppler study on 08/09/18 reads as no left lower extremity deep vein thrombosis. Gan cyst. 4. EKG on 08/10/18 shows normal sinus rhythm with a rate of 66, QTc 448. 5. EKG on 08/13/18 shows normal sinus rhythm, paced, with a rate of 60, QTc 400. 6. Transthoracic echocardiogram on 08/14/18 reads as limited study to reevaluate EF post-PAF and RV with COPD exacerbation. The left ventricular chamber size is normal. Global left ventricular wall motion and contractility are within normal limits. The estimated ejection fraction is 55% to 60%. The right ventricular global systolic function is normal. Compared with prior echo on 07/21/18, stable ventricular function. HISTORY OF PRESENT ILLNESS AND HOSPITAL COURSE: Mr. Yen is a 57-year-old male with past medical history of atrial fibrillation with rapid ventricular response, sick sinus syndrome status post pacemaker, COPD, and ulcerative colitis, status post ileostomy, who presented to the emergency room on 08/07/18 with complaints of shortness of breath and cough. Please see the history and physical by Jodie German NP for a complete summary of the events leading up to this hospitalization. In short, the patient has had multiple hospitalizations in the last few months, most recently discharged from this facility on 07/27/18 , at which time he was treated for AFib with RVR and started on amiodarone. Since that time, he had been hospitalized at [facility] for another episode of reported AFib with RVR. Ultimately, the patient presented to the emergency room with new onset shortness of breath, worsened with exertion. In the emergency room, he was noted to have essentially normal vital signs. He was afebrile. Labs were essentially unremarkable. He was admitted by the hospitalist service for COPD exacerbation. The patient was started on Solu-Medrol in the emergency room, this was continued. He was also placed on supplemental oxygen as needed as well as frequent nebulizers. He was placed on doxycycline because of the concern for recent hospitalizations and healthcare-acquired pneumonia, though it was deemed that pneumonia was likely not present. When the patient arrived, he was rate controlled with an atrial paced rhythm on EKG. He was continued on his amiodarone, metoprolol, and Xarelto. The patient was seen in consultation by Dr. Franco, who he sees outpatient for Pulmonology. She recommended continuing the steroids and oxygen. She did recommend giving an additional dose of torsemide due to some left lower extremity edema. Ultimately, an ultrasound was checked and DVT was ruled out. She did also agree that it would be beneficial for the patient to remain on doxycycline. The patient had a slow recovery, though his respiratory status continued to improve each day. On the evening of 08/12/18, the patient was noted to be in atrial fibrillation with RVR , sustained in the 130s, occasionally up to the 170s. He was given IV diltiazem and digoxin in an attempt to obtain rate control, although this was not successful. Ultimately, the patient was sent to the intensive care unit for titration of a Cardizem drip. He was seen by Cardiology, who recommended increasing his amiodarone to 400 mg daily and obtaining an echo to reevaluate ejection fraction. The patient was transferred out of the ICU on 08/14/18. After coming off the Cardizem drip, he was continued on metoprolol tartrate 50 mg q.8 hours. As of today, 08/16/18, the patient is going in and out of AFib quite frequently. When he is in AFib, his rate is around 120 and when he is out of AFib, it is around 60 to 70. He is asymptomatic at this point. Prior to this when he had rates up to the 170s, he was symptomatic and described the feeling as "heart cramping," though not actual pain. Today, he is anxious to return home. I did touch base with Dr. Garcia from Cardiology, who advised that if the patient is symptomatic, he can be safely discharged home as he is on anticoagulation. Ultimately, I did increase the patient's metoprolol further and changed him back to metoprolol succinate which he was taking at home. As of the time of discharge, he had not been in atrial fibrillation for at least 2 hours. Blood pressure has been stable and has tolerated increased metoprolol dosing. The patient is on room air. Lung sounds are diminished through-out, though there is no wheezing. He is able to ambulate around the unit without any shortness of breath. He completed 7 days of doxycycline, although there was no actual diagnosis of pneumonia. White count remains slightly elevated, though this is attributable to the high doses of Solu-Medrol and prednisone that he has been on recently. Mr. Yen is stable for discharge today. Vital signs are as follows: Temp 96.8, heart rate 64, respiratory rate 20, oxygen saturation 96% on room air, blood pressure 109/72. DISCHARGE MEDICATIONS: New home medications: 1. Potassium chloride 10 mEq p.o. daily. 2. Prednisone 10 mg p.o. taper, take 4 tabs for 4 days, then 3 tabs for 4 days , then 2 tabs for 4 days, then 1 tab for 4 days. Changed home medications: 1. Amiodarone 400 mg p.o. daily (previously was 200 mg daily). 2. Losartan 25 mg p.o. daily (previously was 50 mg p.o. daily). 3. Metoprolol succinate XL 100 mg p.o. b.i.d. (previously was 150 mg b.i.d.) 4. Torsemide 10 mg p.o. daily (previously was 20 mg as needed). Continued medications: 1. Albuterol MDI 2 puffs q.i.d. p.r.n. shortness of breath, wheezing. 2. Incruse Ellipta 1 inhalation daily. 3. Symbicort 80/4.5 one inhalation daily. 4. Xarelto 20 mg p.o. daily. 5. Magnesium oxide 800 mg p.o. b.i.d. 6. Loperamide 2 mg p.o. q.4 hours p.r.n. diarrhea. Discontinued medications: 1. Diltiazem. DISCHARGE PLAN: Mr. Yen will be discharged to home. Activity will be as tolerated. Diet will be heart healthy. Medications are noted above. There have been multiple medication changes. Potassium has been added daily as the patient is on a daily diuretic. He has also been prescribed a prednisone taper for 16 days. He will require this extended taper due to his frequency of COPD exacerbations. The dosing of his amiodarone, losartan, metoprolol, and torsemide have changed and the patient has been instructed to pay close attention to discharge paperwork and new prescriptions for correct dosing. Additionally, he has been advised to discontinue his diltiazem per recommendations from Cardiology. The patient understands that his environmental exposures at work are likely contributing to his COPD exacerbations and he plans on not returning to work because of this. He will need to follow closely with Dr. Franco and he understands this. 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 He will need to follow closely with his coal cutter, and reportedly the plan is for an ablation in August or September, which the patient would greatly benefit from because of the frequency and severity of RVR. He should follow up with his primary care provider in 4 to 7 days. He has been instructed to return to the emergency room or nearest hospital for any worsening of symptoms, shortness of breath, lightheadedness, dizziness, chest discomfort, high fevers, chills, night sweats , loss of consciousness, or any other worrisome signs or symptoms. This is a summarized report of a complex medical history and hospital stay. For further details, please see the entire medical record. TIME SPENT: Approximately 50 minutes was spent on this discharge, greater than half of that time spent [id number] with the patient discussing discharge plans and instructions. CHAYO GARCIA, LOCKSTITCH CUP SETTER [id number]/[facility] #: [id number] ELIUD
== END 2018-08-16 13:00 | disposition home or self-care (01) | DRG 140 ==
LOC: ED 12:34 → MED 16:58 → OBSVTOIN 08-08 08:03 → INTOOBSV 08-08 08:03 → OBSVTOIN 08-08 09:03 → MED 08-08 16:52 → MEDTELE 08-12 17:10 → ICU 08-13 13:13 → MEDTELE 08-14 14:18
PROVIDERS: ADMIT Internal Medicine; ATTEND Hospitalist
DX: J44.1 Chronic obstructive pulmonary disease with (acute) exacerbation (principal); J96.21 Acute and chronic respiratory failure with hypoxia; I50.31 Acute diastolic (congestive) heart failure; I42.9 Cardiomyopathy, unspecified; G47.33 Obstructive sleep apnea (adult) (pediatric); E66.9 Obesity, unspecified; I11.0 Hypertensive heart disease with heart failure; B19.20 Unspecified viral hepatitis C without hepatic coma; I08.1 Rheumatic disorders of both mitral and tricuspid valves; E83.42 Hypomagnesemia; I95.9 Hypotension, unspecified; M71.22 Synovial cyst of popliteal space [Baker], left knee; I48.0 Paroxysmal atrial fibrillation; Z88.1 Allergy status to other antibiotic agents; Z87.01 Personal history of pneumonia (recurrent); Z93.3 Colostomy status; Z90.49 Acquired absence of other specified parts of digestive tract; Z86.19 Personal history of other infectious and parasitic diseases; Z87.891 Personal history of nicotine dependence; Z82.49 Family history of ischemic heart disease and other diseases of the circulatory system; Z56.0 Unemployment, unspecified; Z72.89 Other problems related to lifestyle; Z95.0 Presence of cardiac pacemaker; Z68.24 Body mass index [BMI] 24.0-24.9, adult; Z93.2 Ileostomy status
CPT/HCPCS: 36415; 71045; 80048; 80053; 80162; 83605; 83735; 83880; 84484; 85025; 85610; 86140; 87070; 87077; 87205; 87641; 93005; 93308; 94640; 99285; A9270-GY; J0360; J0456; J0696; J1160; J1940; J2920; J2930; J3475; J3490; J7512

== ENCOUNTER 2018-08-19 05:09 | Observation (INO) | payer OTHER ==
[2018-08-19] MEDS ORDERED: LORazepam INJ* 2 MG/ML 1 ML VIAL IV PUSH ONE (05:35)
--- NOTE | 2018-08-19 05:39 | ED ---
Lower Extremity - HPI Summary HPI Summary: This patient is a 57 year old M brought in by ambulance with a chief complaint of severe leg pain with difficulty ambulating since yesterday afternoon. The patient says this is due to taking Amiodarone two days ago. The patient rates the pain 8/10 in severity. Patient reports diffuse tremors. Patient denies SOB. Pt states he has not had issues with his heart since he left the hospital a few days ago. EMS reports the patient was found to be Afib with RVR rate 160s when they arrived at his house. Metoprolol 5mg IVP was given. PMHX Afib. - History of Current Complaint Chief Complaint: EDDysrhythmPalp Stated Complaint: HIGH HR Time Seen by Provider: 08/19/18 05:20 Hx Obtained From: Patient, EMS Onset of Pain: Days - 1 Onset/Duration: Days Severity Initially: Moderate Severity Currently: Moderate Pain Intensity: 8 Pain Scale Used: 0-10 Numeric Timing: Constant Location: Is Discrete @ - LE - Allergies/Home Medications Allergies/Adverse Reactions: Allergies Allergy/AdvReac Type Severity Reaction Status Date / Time ciprofloxacin Allergy Itching Verified 07/20/18 20:30 PMH/Surg Hx/FS Hx/Imm Hx Endocrine/Hematology History: Denies: Hx Anticoagulant Therapy, Hx Diabetes, Hx Systemic Lupus Erythematosus, Hx Thyroid Disease Cardiovascular History: Reports: Hx Atrial Fibrillation - no anticoagulants used currently, Hx Auto Implanted Cardiovert Defib, Hx Hypertension, Hx Syncope , Other Cardiovascular Problems/Disorders - A FIB Denies: Hx Congestive Heart Failure, Hx Deep Vein Thrombosis, Hx Myocardial Infarction, Hx Pacemaker/ICD Respiratory History: Reports: Hx Asthma, Hx Chronic Obstructive Pulmonary Disease (COPD), Other Respiratory Problems/Disorders - PNA Denies: Hx Lung Cancer, Hx Pneumonia, Hx Pulmonary Embolism GI History: Reports: Hx Gastrointestinal Bleed, Hx Obstructive Bowel, Hx Ileostomy - colostomy 2012, Other GI Disorders - colostomy, ulcerative colitis Denies: Hx Gall Bladder Disease, Hx Ulcer, Hx Urosepsis History: Denies: Hx Kidney Stones, Hx Renal Disease Musculoskeletal History: Reports: Hx Orthopedic Injury - surgeries in both knees Denies: Hx Arthritis, Hx Rheumatoid Arthritis, Hx Osteoporosis Sensory History: Reports: Hx Contacts or Glasses Denies: Hx Hearing Aid, Other Sensory Impairments Opthamlomology History: Reports: Hx Contacts or Glasses Denies: Other Sensory Impairments Neurological History: Denies: Hx Dementia, Hx Migraine, Hx Seizures, Hx Transient Ischemic Attacks (TIA) Psychiatric History: Denies: Hx Anxiety, Hx Depression, Hx Schizophrenia, Hx Bipolar Disorder - Cancer History Cancer Type, Location and Year: None reported Hx Chemotherapy: No - Surgical History Surgery Procedure, Year, and Place: COLECTOMY FOR ULCERATIVE COLITIS AT [facility] - has ostomy now 12/2012; bilat knees for cartilage. Tonsils Hx Anesthesia Reactions: No - Immunization History Date of Influenza Vaccine: 06/07/16 Infectious Disease History: No Infectious Disease History: Reports: Hx Hepatitis - hep c Denies: Hx Clostridium Difficile, Hx Human Immunodeficiency Virus (HIV), Hx of Known/Suspected MRSA, Hx Shingles, Hx Tuberculosis, Hx Known/Suspected VRE, Hx Known/Suspected VRSA, History Other Infectious Disease, Traveled Outside the in Last 30 Days - Family History Known Family History: Positive: Hypertension, Respiratory Disease, Other - Pt adopted - Social History Alcohol Use: Occasionally Alcohol Amount: was daily Hx Substance Use: No Substance Use Type: Reports: None Hx Tobacco Use: Yes Smoking Status (MU): Former Smoker Type: Cigarettes Amount Used/How Often: 1/2 ppd Length of Time of Smoking/Using Tobacco: 40 years Have You Smoked in the Last Year: Yes Review of Systems Negative: Shortness Of Breath Positive: Myalgia - leg pain, Decreased ROM - difficulty ambulating Neurological: Other - tremors All Other Systems Reviewed And Are Negative: Yes Physical Exam - Summary Physical Exam Summary: Appearance: Well-appearing, Well-nourished, lying in bed comfortably. Very tremulous. Skin: Warm, dry, no obvious rash Eyes: sclera anicteric, no conjunctival pallor ENT: mucous membranes moist, pharynx appears normal Neck: Supple, nontender Respiratory: Clear to auscultation, no signs of respiratory distress Cardiovascular: Normal S1, S2. No murmurs. Normal distal pulses in tibial and radial bilaterally. Pulse regular, about 70 bpm. Abdomen: Soft, nontender, normal active bowel sounds present Musculoskeletal: Normal, Strength/ROM Intact Neurological: A&Ox3, awake and alert, mentation is normal, speech is fluent and appropriate Psychiatric: affect is normal, does not appear anxious or depressed Triage Information Reviewed: Yes Vital Signs On Initial Exam: Initial Vitals Temp Pulse Resp BP Pulse Ox 98.0 F 87 18 166/79 99 08/19/18 05:15 08/19/18 05:15 08/19/18 05:15 08/19/18 05:15 08/19/18 05:15 Vital Signs Reviewed: Yes Diagnostics - Vital Signs Vital Signs Temp Pulse Resp BP Pulse Ox 08/19/18 05:15 98.0 F 87 18 166/79 99 - Laboratory Result Diagrams: 08/19/18 05:47 08/19/18 05:47 Lab Statement: Any lab studies that have been ordered have been reviewed, and results considered in the medical decision making process. - EKG 05:14 Cardiac Rate: NL - 88 bpm EKG Rhythm: Sinus Rhythm Summary of EKG Findings: P waves, QRS complex, and T waves are within normal limits, T waves and intervals are normal, no ischemic changes Lower Extremity Course/Dx - Course Course Of Treatment: This patient is a 57 year old M brought in by ambulance with a chief complaint of severe leg pain with difficulty ambulating since yesterday afternoon. The patient says this is due to taking Amiodarone two days ago. The patient rates the pain 8/10 in severity. Patient reports diffuse tremors. Patient denies SOB. An EKG reveals NSR at 88 BPM, P waves, QRS complex , and T waves are within normal limits, T waves and intervals are normal, no ischemic changes. This is a normal EKG. Test results with no significant abnormalities. In the ED course the patient was given Lorazepam and Oxycodone. The patient will be signed out to Dr. Cruz, awaiting consult from Dr. Beauchamp and CXR. Discharge - Sign-Out/Discharge Documenting (check all that apply): Sign-Out Patient Signing out patient TO: Eugenia Cruz - Discharge Plan Referrals: Allyn Heredia MD [Primary Care Provider] - - Attestation Statements Document Initiated by Scribe: Yes Documenting Scribe: Adam Nicole Provider For Whom Scribe is Documenting (Include Credential): Junior Bowles MD Scribe Attestation: Adam Rosenberg, scribed for Junior Bowles MD on 08/19/18 at 0650. Status of Scribe Document: Ready
--- OUTSIDE RECORDS SUMMARY | 2018-08-19 05:41 | XMS REPORT | Continuity of Care Document ---
:1960 External Reference #:[id number] Author Name Misty Alanis Care Team Providers Name Role Phone Allyn Heredia MD Primary Care Physician Unavailable Payers Type Date Identification Numbers Payment Provider Subscriber Policy Number: [id number] [employer] Number: [id number] [address] PayID: [id number] [place] [address] Expires: 2016 PayID: [id number] [employer] Employee [address] [place] [address] Advance Directives Description No Information Available Problems Date Description Provider Status Onset: 02/11/2018 Chronic obstructive pulmonary disease Franklin Henriquez M.D. Active with (acute) exacerbation Onset: 02/11/2018 Atrial fibrillation Franklin Henriquez M.D. Active Onset: 02/11/2018 Essential hypertension Franklin Henriquez M.D. Active Onset: 07/20/2018 Syncope and collapse Eliza Kruger D.O. Active Onset: 07/20/2018 Ulcerative colitis Eliza Kruger D.O. Active Onset: 07/21/2018 Unspecified systolic (congestive) heart KIA Leal Active failure Onset: 07/22/2018 Elevated levels of transaminase & KIA Leal Active lactic acid dehydrogenase Onset: 07/21/2018 Ileostomy present KIA Leal Active Onset: 07/26/2018 Alcohol abuse, uncomplicated Melina Maldonado NP Active Onset: 07/26/2018 High enzyme level in serum Melina Maldonado NP Active Onset: 07/26/2018 Paroxysmal ventricular tachycardia Melina Maldonado NP Active Family History Description No Information Available Social History Type Date Description Comments Sex Unknown Marital Status Single Lives With Alone Lives With No pets Occupation Disabled 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 Smoking Status Reviewed: 06/07/18 Secondhand smoke Indoors, bars, exposure bowling alleys etc. Exercise Type/Frequency Does not exercise Limited following heart surgery Allergies, Adverse Reactions, Alerts Date Description Reaction Status Severity Comments 11/12/2017 Cipro swelling and redness w/IV Active Medications Medication Date Status Form Strength Qnty SIG Indications Ordering Provider Prednisone 06/07 Active Tablets 10mg 14tab 1 by mouth J44.1 Sanjuanita /2017 s every day MD Joan Losartan 05/10 Active Tablets 100mg 30tab 1 by mouth Josie S. Potassium /2017 s every day Willis N.P. Oxygen 05/10 Active Misc use 2l at R09.02 Josie S. /2017 night and Willis with N.P. ambulation. [...] Fluticasone 11/12 Hx 250mcg one puff Annmarie /2017 inhaled bid Shaji Chavez M.D. 04/06 Albuterol Hx Nebulizer (2.5mg/3M 1 vial via Unknown Sulfate /0000 L) 0.083% nebulizer 4 - times daily 04/06 as needed Metoprolol Hx Tablets 100mg take 1 1/2 Unknown Tartrate /0000 tablet by - mouth twice a Amlodipine Hx Tablets 2.5mg 1 by mouth Unknown Besylate /0000 every day - 02/15 Prednisone 00 Hx Tablets 10mg take 50mg for Unknown [...] - as needed Allyn 05/06 MD Mitesh Prednisone Hx Tablets 20mg Gordon, /0000 Hair Kramer MD 06/07 Immunizations Description No Information Available Vital Signs Date Vital Result Comment 06/07/2018 1:08pm Height 66 inches 5'6" Weight 145.12 lb Heart Rate 72 /min BP Systolic Sitting 112 mmHg Rue regular cuff BP Diastolic Sitting 78 mmHg Rue regular cuff Respiratory Rate 12 /min O2 % BldC Oximetry 94 % BMI (Body Mass Index) 23.4 kg/m2 05/10/2018 8:49am Height 66 inches 5'6" Weight 143.38 lb Heart Rate 72 /min BP Systolic Sitting 140 mmHg BP Diastolic Sitting 100 mmHg O2 % BldC Oximetry 94 % at rest on room air BMI (Body Mass Index) 23.1 kg/m2 04/07/2018 9:14am Height 66 inches 5'6" Weight 137.38 lb Heart Rate 72 /min BP Systolic Sitting 108 mmHg Lue reg cuff BP Diastolic Sitting 76 mmHg Lue reg cuff Respiratory Rate 16 /min O2 % BldC Oximetry 96 % BMI (Body Mass Index) 22.2 kg/m2 Neck Circumference in inches 15.5 02/16/2018 9:51am Height 66 inches 5'6" Weight 144.00 lb Heart Rate 60 /min BP Systolic Sitting 150 mmHg BP Diastolic Sitting 88 mmHg Respiratory Rate 20 /min Body Temperature 97.2 F Pain Level 0 O2 % BldC Oximetry 97 % BMI (Body Mass Index) 23.2 kg/m2 11/12/2017 1:35pm Height 66 inches 5'6" Weight 134.00 lb w/ shoes Heart Rate 60 /min irregular BP Systolic Sitting 118 mmHg lue reg cuff BP Diastolic Sitting 92 mmHg lue reg cuff Respiratory Rate 18 /min BMI (Body Mass Index) 21.6 kg/m2 Ejection Fraction 35-40% echo 11/01/2017 Results Description No Information Available Procedures Date Code Description Status 06/04/2018 47361 Polysomnography Sleep Staging 4+ Parameters Completed 04/26/2018 62778 Diffusing Capacity Completed 04/26/2018 26236 Plethysmography Determination Lung Volumes & Per Airway Completed Resist 04/26/2018 95440 Pulmonary Stress Testing, Inc Measurement Heart Rate, Completed Oximetry 04/26/2018 85042 Pulmonary Function><Bronchodil Completed 11/20/2017 42954 ECHO Transthorasic Realtime 2D W Doppler & Color Flow Completed Hosp 11/20/2017 10223 EKG, Interpretation Only Completed 11/20/2017 88359 Cardioversion Completed 11/06/2017 26308 EKG, Interpretation Only Completed 11/05/2017 [id number] Colonoscopy Completed 11/05/2017 82236 Endoscopy Upper GI Biopsy Completed 11/05/2017 13073 Ileoscopy Through Stoma Diagnostic Completed 11/05/2017 21892 EKG, Interpretation Only Completed 11/04/2017 68492 EKG, Interpretation Only Completed 11/03/2017 26226 EKG, Interpretation Only Completed 11/02/2017 99941 EKG, Interpretation Only Completed 11/01/2017 08580 Echocardiogram, Limited Study Completed 10/31/2017 48372 EKG, Interpretation Only Completed 08/28/2017 05357 ECHO Transthorasic Realtime 2D W Doppler & Color Flow Completed Hosp 08/28/2017 20588 EKG, Interpretation Only Completed 10/26/2015 15477 ECHO Transthorasic Realtime 2D W Doppler & Color Flow Completed Hosp Encounters Type Date Location Provider Dx Diagnosis Office Visit 07/26/2018 [facility] Melina Maldonado, R55 Syncope and 8:27a Assoc,deangelo Hospitalists 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91 Unspecified atrial 8:26a deangelo Doss PA fibrillation Hospitalists J44.1 Chronic obstructive pulmonary disease w (acute) exacerbation I50.20 Unspecified systolic (congestive) heart failure Z93.2 Ileostomy status Office Visit 07/23/2018 8:26a [facility] Hair J44.1 Chronic Assoc,KIA Platt obstructive Hospitalists pulmonary disease w (acute) exacerbation I48.91 Unspecified atrial fibrillation R74.0 Nonspec elev of levels of transamns & lactic acid dehydrgnse I50.20 Unspecified systolic (congestive) heart failure Z93.2 Ileostomy status Office Visit 07/22/2018 [facility] Hair I48.91 Unspecified atrial 8:26a Assdeangelo thomas PA fibrillation Hospitalists I50.20 Unspecified systolic (congestive) heart failure R74.0 Nonspec elev of levels of transamns & lactic acid dehydrgnse Z93.2 Ileostomy status Office Visit 07/21/2018 [facility] Hair I48.91 Unspecified atrial 8:25a Assocdeangelo PA fibrillation Hospitalists I50.20 Unspecified systolic (congestive) heart failure J44.1 Chronic obstructive pulmonary disease w (acute) exacerbation Z93.2 Ileostomy status Office Visit 07/20/2018 8:25a [facility] Eliza Kruger, R55 Syncope and Assoc,deangelo D.OOsmani collapse Hospitalists J44.1 Chronic obstructive pulmonary disease w (acute) exacerbation I48.91 Unspecified atrial fibrillation K51.90 Ulcerative colitis, unspecified, without complications Office Visit 06/07/2018 1:30p Pulmonology And Sanjuanita J44.1 Chronic Sleep Services Of MD Joan obstructive [facility] pulmonary disease w (acute) exacerbation G47.33 Obstructive sleep apnea (adult) (pediatric) Office Visit 05/10/2018 9:00a [facility] Josie Pedro, R09.02 Hypoxemia Services Of [facility] N.POsmani J45.909 Unspecified asthma, uncomplicated I48.0 Paroxysmal atrial fibrillation G47.9 Sleep disorder, unspecified Z87.891 Personal history of nicotine dependence J44.9 Chronic obstructive pulmonary disease, unspecified Office Visit 04/07/2018 9:30a Pulmonology And Sanjuanita J44.9 [facility] MD Joan obstructive [facility] pulmonary disease, unspecified J45.909 Unspecified asthma, uncomplicated G47.9 Sleep disorder, unspecified Z87.891 Personal history of nicotine dependence Office Visit 02/16/2018 9:30a [facility] Roger Hollis, I50.22 Chronic systolic [facility] (congestive) heart failure J44.9 Chronic obstructive pulmonary disease, unspecified J45.901 Unspecified asthma with (acute) exacerbation I48.0 Paroxysmal atrial fibrillation I42.9 Cardiomyopathy, unspecified Office Visit 02/11/2018 11:09a [facility] Franklin J44.1 Chronic Assoc,deangelo Henriquez M.D. obstructive Hospitalists pulmonary disease w (acute) exacerbation I48.91 Unspecified atrial fibrillation I10 Essential (primary) hypertension Office Visit 02/10/2018 [facility] Mc J44.1 Chronic 11:08a Assoc,deangelo Gutierrez N.P. obstructive Hospitalists pulmonary disease w (acute) exacerbation I48.91 Unspecified atrial fibrillation I10 Essential (primary) hypertension Office Visit 11/21/2017 2:46p [facility] Morro I48.0 Paroxysmal atrial Assoc,deangelo Spears M.D. fibrillation Hospitalists I48.0 Paroxysmal atrial fibrillation J44.9 Chronic obstructive pulmonary disease, unspecified J44.9 Chronic obstructive pulmonary disease, unspecified K51.00 Ulcerative (chronic) pancolitis without complications I50.23 Acute on chronic systolic (congestive) heart failure I50.23 Acute on chronic systolic (congestive) heart failure Office Visit 11/20/2017 8:53a [facility] Vernon Marvin I48.0 Paroxysmal atrial Of [employer]le Inspector Yobany Grubbs, fibrillation FACC, FASNC I50.9 Heart failure, unspecified Office Visit 11/20/2017 2:46p [facility] Hair I48.0 Paroxysmal atrial Assoc,KIA Platt fibrillation Hospitalists J44.9 Chronic obstructive pulmonary disease, unspecified K51.00 Ulcerative (chronic) pancolitis without complications I50.23 Acute on chronic systolic (congestive) heart failure Office Visit 11/12/2017 1:45p [facility] Annmarie Chavez I48.0 Paroxysmal atrial Of [employer]le Inspector [facility] M.D. fibrillation I49.5 Sick sinus syndrome R55 Syncope and collapse Z95.0 Presence of cardiac pacemaker Office Visit 11/08/2017 11:15a [facility] Jodie German J96.22 Acute and chronic Assoc,pc N.P. respiratory Hospitalists failure with hypercapnia J69.0 Pneumonitis due to inhalation of food and vomit J44.1 Chronic obstructive pulmonary disease w (acute) exacerbation I48.91 Unspecified atrial fibrillation Office Visit 11/07/2017 11:14a [facility] Jodie German J96.22 Acute and chronic Assoc,pc N.P. respiratory Hospitalists failure with hypercapnia J69.0 Pneumonitis due to inhalation of food and vomit I48.91 Unspecified atrial fibrillation Office Visit 11/07/2017 2:44p [facility] Annmarie Chavez I48.0 Paroxysmal atrial Of [facility] M.D. fibrillation I42.9 Cardiomyopathy, unspecified Office Visit 11/06/2017 2:47p Intensivists Sanjuanita Franco I48.0 Paroxysmal atrial MD fibrillation J43.9 Emphysema, unspecified I42.9 Cardiomyopathy, unspecified D72.829 Elevated white blood cell count, unspecified Office Visit 11/06/2017 [facility] X[facility] Hanna I48.91 Unspecified 3:14p Yobany Spencer atrial fibrillation Office Visit 11/05/2017 [facility] Darryl Lozano J96.22 Acute and chronic 11:14a Assoc,deangelo Perez MD respiratory Hospitalists failure with hypercapnia J69.0 Pneumonitis due to inhalation of food and vomit J44.1 Chronic obstructive pulmonary disease w (acute) exacerbation I48.91 Unspecified atrial fibrillation Office Visit 11/05/2017 2:00p [facility] Annmarie Parksher, I48.0 Paroxysmal atrial Of Buckle Inspector M.D. fibrillation I42.9 Cardiomyopathy, unspecified Office Visit 11/04/2017 12:39p [facility] Annmarie Parksher, I48.0 Paroxysmal atrial Of Buckle Inspector M.D. fibrillation I42.9 Cardiomyopathy, unspecified Office Visit 11/04/2017 11:13a [facility] Darryl Lozano J96.22 Acute and chronic Assoc,deangelo Perez MD respiratory Hospitalists failure with hypercapnia J69.0 Pneumonitis due to inhalation of food and vomit J44.1 Chronic obstructive pulmonary disease w (acute) exacerbation I48.91 Unspecified atrial fibrillation Office Visit 11/04/2017 [facility] Jodie Ramsey, Z87.19 Personal history 7:00a MD of other diseases of the digestive system Office Visit 11/03/2017 [facility] Of Jeronimo Saeed I49.5 Sick sinus 2:17p Geremias Garcia M.D. syndrome Office Visit 11/03/2017 [facility] Darryl Lozano J96.22 Acute and 11:13a Assoc, Roxi Perez MD chronic respiratory failure with hypercapnia J69.0 Pneumonitis due to inhalation of food and vomit J44.1 Chronic obstructive pulmonary disease w (acute) exacerbation I48.91 Unspecified atrial fibrillation Office Visit 11/02/2017 2:19p [facility] Jeronimo Saeed I48.91 Unspecified atrial Of Buckle Inspector Yobany Garcia fibrillation I49.5 Sick sinus syndrome Office Visit 11/02/2017 11:12a [facility] Darryl Lozano J96.22 Acute and chronic Assoc,deangelo Perez MD respiratory Hospitalists failure with hypercapnia J69.0 Pneumonitis due to inhalation of food and vomit J44.1 Chronic obstructive pulmonary disease w (acute) exacerbation I48.91 Unspecified atrial fibrillation Office Visit 11/01/2017 4:37p [facility] Kush Jiménez I49.5 Sick sinus Yobany Dickens syndrome J44.1 Chronic obstructive pulmonary disease w (acute) exacerbation Office Visit 11/01/2017 [facility] Guillermo Ji J96.22 Acute and chronic 11:11a Assoc,pc John Beauchamp respiratory Hospitalists failure with hypercapnia J69.0 Pneumonitis due to inhalation of food and vomit J44.1 Chronic obstructive pulmonary disease w (acute) exacerbation I48.91 Unspecified atrial fibrillation Office Visit 10/31/2017 4:38p [facility] Kush Jiménez I48.0 Paroxysmal atrial Mauser, M.D. fibrillation I49.5 Sick sinus syndrome J44.1 Chronic obstructive pulmonary disease w (acute) exacerbation Office Visit 10/31/2017 [facility] Guillermo Lozano96.22 Acute and chronic 11:10a Assdeangelo thomas D.O. respiratory Hospitalists failure with hypercapnia J69.0 Pneumonitis due to inhalation of food and vomit J44.1 Chronic obstructive pulmonary disease w (acute) exacerbation I48.91 Unspecified atrial fibrillation Office Visit 10/30/2017 11:09a Intensivists Guillermo Lozano96.22 Acute and chronic John Beauchamp respiratory failure with hypercapnia J69.0 Pneumonitis due to inhalation of food and vomit J44.1 Chronic obstructive pulmonary disease w (acute) exacerbation I48.91 Unspecified atrial fibrillation Office Visit 10/30/2017 4:33p [facility] Kush Jiménez I48.0 Paroxysmal atrial Mauser, M.D. fibrillation J44.9 Chronic obstructive pulmonary disease, unspecified R94.31 Abnormal electrocardiogram [ECG] [EKG] Office Visit 10/14/2017 [facility] Preethi Mckeon J44.1 Chronic 8:57a deangelo Doss M.D. obstructive Hospitalists pulmonary disease w (acute) exacerbation Office Visit 09/29/2017 [facility] Blake Rodas44.1 Chronic 11:00a deangelo Doss D.O. obstructive Hospitalists pulmonary disease w (acute) exacerbation I48.0 Paroxysmal atrial fibrillation Office Visit 09/28/2017 11:00a [facility] Eliza Lozano44.1 Chronic deangelo Doss D.O. obstructive Hospitalists pulmonary disease w (acute) exacerbation I48.0 Paroxysmal atrial fibrillation Office Visit 09/27/2017 [facility] Blake Dolan44.1 Chronic 11:00a deangelo Doss M.D. obstructive Hospitalists pulmonary disease w (acute) exacerbation I48.0 Paroxysmal atrial fibrillation Office Visit 08/30/2017 8:02a [facility] Jodie German, I48.91 Unspecified atrial Assoc,deangelo N.P. fibrillation Hospitalists K51.90 Ulcerative colitis, unspecified, without complications J44.1 Chronic obstructive pulmonary disease w (acute) exacerbation Office Visit 08/29/2017 8:02a [facility] Jodie German, I48.91 Unspecified atrial Assoc,pc N.P. fibrillation Hospitalists K51.90 Ulcerative colitis, unspecified, without complications J44.1 Chronic obstructive pulmonary disease w (acute) exacerbation Office Visit 08/28/2017 [facility] Mc I48.91 Unspecified 8:00a Assoc,pc Matt N.P. atrial Hospitalists fibrillation K51.90 Ulcerative colitis, unspecified, without complications J44.1 Chronic obstructive pulmonary disease w (acute) exacerbation Office Visit 08/28/2017 12:15p [place] S. R07.9 Chest pain, Cardiology Yobany Spencer unspecified M25.519 Pain in unspecified shoulder R00.0 Tachycardia, unspecified I48.2 Chronic atrial fibrillation I34.0 Nonrheumatic mitral (valve) insufficiency F10.10 Alcohol abuse, uncomplicated Z87.891 Personal history of nicotine dependence Office Visit 07/20/2017 7:00a [facility] Josie Cyndi J44.1 Chronic Assoc,deangelo Pedro N.P. obstructive Hospitalists pulmonary disease w (acute) exacerbation I48.0 Paroxysmal atrial fibrillation Z87.891 Personal history of nicotine dependence Office Visit 07/19/2017 [facility] J44.1 Chronic 6:59a Assoc,deangelo Maldonado, [place] obstructive Hospitalists pulmonary disease w (acute) exacerbation I48.0 Paroxysmal atrial fibrillation Z87.891 Personal history of nicotine dependence Office Visit 07/18/2017 [facility] J44.1 Chronic 6:58a Assoc,deangelo Maldonado NP obstructive Hospitalists pulmonary disease w (acute) exacerbation I48.0 Paroxysmal atrial fibrillation Z87.891 Personal history of nicotine dependence Office 02/09/2017 [facility] J44.1 Chronic Visit 10:55a Assoc,KIA Steiner obstructive Hospitalists pulmonary disease w (acute) exacerbation R00.0 Tachycardia, unspecified R07.9 Chest pain, unspecified I48.0 Paroxysmal atrial fibrillation Office Visit 02/08/2017 [facility] Jamia Rhodes J44.1 Chronic 10:53a Assoc,deangelo Bright NP obstructive Hospitalists pulmonary disease w (acute) exacerbation R00.0 Tachycardia, unspecified R07.9 Chest pain, unspecified I48.0 Paroxysmal atrial fibrillation Office Visit 11/18/2016 [facility] Preethi Mckeon J18.1 Lobar pneumonia, 3:43p Assdeangelo thomas M.D. unspecified Hospitalists organism J44.1 Chronic obstructive pulmonary disease w (acute) exacerbation Office Visit 11/17/2016 [facility] Preethi Mckeon J44.1 Chronic 3:43p deangelo Doss M.D. obstructive Hospitalists pulmonary disease w (acute) exacerbation J18.1 Lobar pneumonia, unspecified organism Office Visit 09/30/2016 2:40p [facility] Jodieshiela German J44.1 Chronic Assoc,pc N.P. obstructive Hospitalists pulmonary disease w (acute) exacerbation I10 Essential (primary) hypertension Office Visit 09/29/2016 2:39p [facility] Jodieshilea German J44.1 Chronic Assoc,pc N.P. obstructive Hospitalists pulmonary disease w (acute) exacerbation I10 Essential (primary) hypertension B18.2 Chronic viral hepatitis C Office Visit 09/17/2016 7:13a [facility] Parviz Ruff J18.1 Lobar pneumonia, Assoc,deangelo Haywood unspecified Hospitalists organism J44.9 Chronic obstructive pulmonary disease, unspecified I48.91 Unspecified atrial fibrillation B19.20 Unspecified viral hepatitis C without hepatic coma Office Visit 09/16/2016 7:12a [facility] Parviz Ruff J18.1 Lobar pneumonia, Assoc,deangelo Haywood unspecified Hospitalists organism J44.9 Chronic obstructive pulmonary disease, unspecified I48.91 Unspecified atrial fibrillation B19.20 Unspecified viral hepatitis C without hepatic coma Office Visit 09/15/2016 [facility] Yahir Saeed J18.1 Lobar pneumonia, 7:11a Assoc,deangelo Lubin M.D.,FACP unspecified Hospitalists organism J44.9 Chronic obstructive pulmonary disease, unspecified I48.91 Unspecified atrial fibrillation Office Visit 09/14/2016 [facility] Mc J44.9 Chronic 7:11a Assoc,deangelo Gutierrez N.POsmani obstructive Hospitalists pulmonary disease, unspecified J18.1 Lobar pneumonia, unspecified organism I48.91 Unspecified atrial fibrillation B19.20 Unspecified viral hepatitis C without hepatic coma [facility] Assoc,deangelo Spears M.D. obstructive Hospitalists pulmonary disease w (acute) exacerbation I48.0 Paroxysmal atrial fibrillation Office Visit 06/06/2016 [facility]35[facility] J[facility].1 Chronic Assoc,deangelo Spears M.D. obstructive Hospitalists pulmonary disease w (acute) exacerbation I48.0 Paroxysmal atrial fibrillation Office Visit 10/27/2015 [facility] S. I48.91 Unspecified atrial 2:05p Fantasma Spencer M.D. fibrillation I42.9 Cardiomyopathy, unspecified Office Visit 10/27/2015 [facility] I48.91 Unspecified atrial 12:35p Assoc,deangelo Spears M.D. fibrillation Hospitalists R55 Syncope and collapse J44.9 Chronic obstructive pulmonary disease, unspecified K51.80 Other ulcerative colitis without complications Office Visit 10/26/2015 [place] Qudoraeh S. I48.91 Unspecified atrial 4:07p Fantasma Spencer M.D. fibrillation I42.9 Cardiomyopathy, unspecified F17.210 Nicotine dependence, cigarettes, uncomplicated Office Visit 10/26/2015 [facility] Parviz Ruff, I48.91 Unspecified atrial 12:35p deangelo Doss M.D. fibrillation Hospitalists R55 Syncope and collapse J44.9 Chronic obstructive pulmonary disease, unspecified K51.80 Other ulcerative colitis without complications Office Visit 03/21/2015 9:40a [facility] Julia Watkins, V74.1 Screening Home N.P. Examination Pulmonary Tuberculosis V70.3 Examination Other Medical For Administrative Purpose V70.5 Examination Health Of Defined Subpopulations Office Visit 12/28/2014 10:30a [facility] Torri Rooth, 486 Pneumonia Assoc,pc DO Organism Unspec Hospitalists 785.0 Tachycardia Unspec 556.9 Ulcerative Colitis Unspec 491.21 Bronchitis Obstructive Chronic W/Acute Exacerbation Office Visit 12/27/2014 10:29a [facility], 486 Pneumonia Assoc,pc DO Organism Unspec Hospitalists 785.0 Tachycardia Unspec 556.9 Ulcerative Colitis Unspec 491.21 Bronchitis Obstructive Chronic W/Acute Exacerbation Office Visit 12/26/2014 10:29a [facility] Torri Root, 486 Pneumonia Assoc,pc DO Organism Unspec Hospitalists 785.0 Tachycardia Unspec 556.9 Ulcerative Colitis Unspec 491.21 Bronchitis Obstructive Chronic W/Acute Exacerbation Plan of Treatment 06/07/2018 - Sanjuanita Franco MDJ44.1 Chronic obstructive pulmonary disease with (acute) exacerbationNew Medication:Prednisone 10 mg - 1 by mouth every dayFollow up:6 [id number] Obstructive sleep apnea (adult) (pediatric)
[2018-08-19 05:58] LABS: Hematocrit 39 % (42-52); Hemoglobin 12.7 g/dl (14.0-18.0); Mean Corpuscular HGB Conc 33 g/dl (31-36); Mean Corpuscular Hemoglobin 33 pg (27-31); Mean Corpuscular Volume 99 fL (80-94); Mean Platelet Volume 7.9 fL (7.4-10.4); Platelet Count 195 10^3/ul (150-450); Red Cell Distribution Width 14 % (10.5-15)
[2018-08-19 06:15] LABS: EGFR Non-African American 36.5 (>60)
[2018-08-19] MEDS ORDERED: oxyCODONE TAB* 5 MG TAB PO ONE (06:23)
[2018-08-19 06:29] LABS: ABS Basophils 0 10^3/ul (0-0.2); ABS Eosinophils 0 10^3/ul (0-0.6); ABS Lymphocytes 0.9 10^3/ul (1.0-4.8); ABS Monocytes 2.3 10^3/ul (0-0.8); ABS Neutrophils 24.8 10^3/ul (1.5-7.7); ABS Nucleated RBC 0 10^3/ul; Eosinophil % 0 %; Lymphocyte % 3.3 %; Nucleated Red Blood Cells % 0
--- NOTE | 2018-08-19 07:33 | ED ---
Progress - Progress Note Progress Note: This patient was signed out from Dr. Bowles awaiting CXR and dispo. Blood work showed leukocytosis with a WBC 28. At 0815 the patient began to c/o a cramping chest pain, repeat EKG was ordered and the patient was given NTG. He was also given Percocet for his LE pain. Repeat EKG done at 0817 showed NSR at 84 BPM. There are borderline prolonged AL intervals as well as ST depressions in V4, V5 , and the inferior leads. This EKG is similar to the one done at 0514 this date. CXR shows, emphysema. [address] Galdamez, hospitalist, and she has agreed to come see the patient. After she saw the patient she suggested giving the patient IV fluids and repeating blood work. Repeat EKG done at 1225 showed NSR at [address] depressions in the anterior and lateral leads that are new. Since there are EKG changes I discussed the case again with Dr. Galdamez at 1239 and she has accepted the patient for admission. Dx CP. - Additional EKG/XRAY/Consults EKG #2: NSR - NSR at 84 BPM. There are borderline prolonged AL intervals as well as ST depressions in V4, V5, and the inferior leads. This EKG is similar to the one done at 513 this date. Course/Dx - Course Course Of Treatment: This patient was signed out from Dr. Bowles awaiting CXR and dispo. Blood work showed leukocytosis with a WBC 28. At 0815 the patient began to c/o a cramping chest pain, repeat EKG was ordered and the patient was given NTG. He was also given Percocet for his LE pain. Repeat EKG done at 0817 showed NSR at 84 BPM. There are borderline prolonged AL intervals as well as ST depressions in V4, V5, and the inferior leads. This EKG is similar to the one done at 0514 this date. CXR shows, emphysema. [address] Galdamez, hospitalist, and she has agreed to come see the patient. After she saw the patient she suggested giving the patient IV fluids and repeating blood work. Repeat EKG done at 1225 showed NSR at [address] depressions in the anterior and lateral leads that are new. Since there are EKG changes I discussed the case again with Dr. Galdamez at 1239 and she has accepted the patient for admission. Dx CP. - Diagnoses Provider Diagnoses: Chest pain Discharge - Sign-Out/Discharge Documenting (check all that apply): Patient Departure - admitted , Receiving Sign-Out Receiving patient FROM: Junior Bowles - Discharge Plan Condition: Fair Disposition: ADMITTED TO [facility] - Billing Disposition and Condition Condition: FAIR Disposition: Admitted to [facility] - Attestation Statements Document Initiated by Lyibe: Yes Documenting Scribe: Angel Lopez Provider For Whom Ej is Documenting (Include Credential): Eugenia Cruz MD Scribe Attestation: I, Angel Lopez , scribed for Eugenia Cruz MD on 08/19/18 at 5687. Scribe Documentation Reviewed: Yes Provider Attestation: The documentation as recorded by the [email or web address] accurately reflects the service I personally performed and the decisions made by me, Eugenia Cruz MD Status of Scribe Document: Viewed
[2018-08-19 08:20] LABS: Urine Appearance Clear; Urine Blood Negative (Negative); Urine Color Straw; Urine Ketones Negative (Negative); Urine Protein Negative (Negative); Urine Specific Gravity 1.014 (1.010-1.030); Urine Urobilinogen Negative (Negative)
[2018-08-19] MEDS ORDERED: Nitroglycerin TAB 0.4 MG* 0.4 MG TAB SL ONE (09:31)
[2018-08-19] MEDS ORDERED: oxyCODONE/Acetamin 5/325 MG* TAB PO ONE (09:31)
[2018-08-19] MEDS ORDERED: NS 0.9% 1000 ML* 1,000 ML IV ONE (10:55)
[2018-08-19] MEDS ORDERED: Magnesium Oxide TAB* 400 MG PO ONE (12:29)
[2018-08-19 12:48] LABS: Hematocrit 36 % (42-52); Mean Corpuscular HGB Conc 33 g/dl (31-36); Mean Corpuscular Hemoglobin 33 pg (27-31); Mean Corpuscular Volume 99 fL (80-94); Mean Platelet Volume 7.8 fL (7.4-10.4); Platelet Count 181 10^3/ul (150-450); Red Blood Count 3.68 10^6/ul (4.00-5.40); Red Cell Distribution Width 14 % (10.5-15); White Blood Count 26.2 10^3/ul (3.5-10.8)
[2018-08-19] MEDS ORDERED: fentaNYL* 50 MCG/ML 2 ML VIAL (100 MCG VIAL) IV SLOW PU ONE (13:07)
[2018-08-19 13:21] LABS: ABS Basophils 0.1 10^3/ul (0-0.2); ABS Eosinophils 0 10^3/ul (0-0.6); ABS Lymphocytes 1.5 10^3/ul (1.0-4.8); ABS Monocytes 2.3 10^3/ul (0-0.8); ABS Neutrophils 22.4 10^3/ul (1.5-7.7); ABS Nucleated RBC 0 10^3/ul; Eosinophil % 0.2 %; Lymphocyte % 5.5 %; Nucleated Red Blood Cells % 0.1
[2018-08-19] MEDS ORDERED: Al Hydrox/Mg Hydrox/Simet LIQ* 30 ML UDC PO PRN (13:57)
[2018-08-19] MEDS ORDERED: Loperamide CAP* 2 MG PO PRN (13:59)
--- NOTE | 2018-08-19 14:31 | CONS ---
ADDENDUM NOW INCLUDED ON THIS REPORT CONSULTATION REPORT: DATE OF CONSULT: 08/19/18 CHIEF COMPLAINT: Leg pain. HISTORY OF PRESENT ILLNESS: This is a 57-year-old man with history of AFib with RVR and COPD who was recently admitted to our service and discharged on . During that admission, he was treated for a COPD exacerbation and atrial fibrillation with rapid ventricular response. He was seen in consultation by Cardiology on that admission and his amiodarone was increased from 200 mg daily to 400 mg daily. He was also discharged on a prednisone taper. He went home and was feeling well. His breathing is much improved. He has not had any cough , shortness of breath, abdominal pain, nausea, vomiting, diarrhea, fevers, dysuria, and he was taking his new medications as prescribed. Yesterday, he noticed leg achiness and crampiness that started at the knees and extended distally and also noted a fine tremor that comes and goes. It is sometimes at rest and sometimes with movement. He has been able to perform his ADLs, but came to the emergency department today because the pain in his legs was getting worse. He describes the pain as a achiness like you had just worked out and it is in his calf muscles and his knees. He was reading the paper work regarding amiodarone. He noticed that both of these complaints can be related to amiodarone, so he questions whether he is on too high of a dose. He again has otherwise been doing quite well at home. He has been eating and drinking well and has no other complaints until these symptoms arose. PAST MEDICAL HISTORY: 1. Chronic hypoxic respiratory failure. He uses oxygen p.r.n. at home. He has not required it more than usual since he was discharged from the hospital and usually just wears it at night. 2. COPD. 3. Atrial fibrillation. 4. Hypertension. 5. History of UC. 6. Obstructive sleep apnea, on CPAP. 7. Sick sinus syndrome, now with a pacemaker. SOCIAL HISTORY: He is a former smoker. He drinks daily approximately 2 drinks and his emergency contact is his friend, Julia, should he be unable to make decisions. REVIEW OF SYSTEMS: Negative except as noted in the HPI. PHYSICAL EXAM: Temperature 98.0, his heart rate at presentation was 87 today and his current heart rate is also 87, respiratory rate 18, pulse ox 99% on 2 liters, and blood pressure 147/71. General: Alert, comfortable, well- appearing man, in no distress. He is nontoxic appearing. HEENT: Pupils are equal, round, and reactive to light. His oral mucosa is moist. Neck: No JVP. No cervical adenopathy. Chest: He is in a regular rate and rhythm with no murmurs. A pacemaker is noted on his chest wall. His lungs are clear bilaterally, he has no wheezes or rhonchi. Abdomen is soft, nontender, and nondistended. No guarding or rebound. Extremities: He does have a fine tremor that comes and goes throughout my interview and exam. It is sometimes there with intention and sometimes not and sometimes there with rest and sometimes not. Nothing seems to make it worse or better. He is mildly tender to deep palpation of his calves and knees, but he is able to tolerate me squeezing his legs. His deep tendon reflexes are 2+ bilaterally and his patellar reflexes and his lower extremity strength is 4/5, but somewhat limited by pain. DIAGNOSTIC STUDIES/LAB DATA: White blood cell 28 with no bands, hemoglobin 12.7 , platelets 195. Sodium 131, potassium 5.2, chloride 103, BUN 57, creatinine 1.91, glucose 115, calcium 8.4, CK 56. Urinalysis is unremarkable. Flu swabs are negative. Chest x-ray shows emphysema. EKG shows sinus rhythm at 84, normal axis, normal intervals. No Qs. No ST or T changes. ASSESSMENT AND PLAN: This is a 57-year-old man with history of chronic obstructive pulmonary disease and atrial fibrillation who has recently had difficult to control atrial fibrillation in the setting of a chronic obstructive pulmonary disease exacerbation and was discharged home 3 days ago on an increased dose of amiodarone presenting today with leg achiness and tremors. 1. Leg pain and tremors. It is possible that this is a side effect of an increased dose of amiodarone. I have discussed the case with Dr. Flores from Cardiology and he thinks it is a possibility, however the rates of tremors and neurologic side effects of amiodarone are less than 10%. He suggested reducing the amiodarone back to 200 mg in hopes that the reason his atrial fibrillation was difficult to control last admission was due to respiratory distress and chronic obstructive pulmonary disease exacerbation, now that that has resolved, he should not need an higher dose of amiodarone. His CK is normal. I am adding on a magnesium and regarding other possibilities for the etiology of his tremor and myalgias, I would consider calling Neurology for a consultation. 2. Leukocytosis. He does have a marked leukocytosis, however in the setting of steroid use this is unrevealing. He also has a negative review of systems as far as localizing symptoms go and cannot identify any possible source of infection. He also has no bandemia, so I do not think this is an indication for overnight admission. 3. Acute kidney injury. He may be a little dry, so I would give him IV fluids before he is discharged. His weight today is 63 kg and when he was discharged from the hospital 3 days ago, he was 67 kg, and his admission weight on was 71 kg, so it is possible that he was over diuresed. 4. Chronic obstructive pulmonary disease with a recent exacerbation. I would continue him on his prescribed dose of a prednisone taper. 5. Atrial fibrillation. He is in sinus rhythm now and he is anticoagulated with Xarelto. I would continue the metoprolol and the Xarelto and the reduced dose of amiodarone. Thank you for allowing me to participate in the care of this patient. I would consider Cardiology or Neurology consultations as we feel they would be helpful in this case. Please do not hesitate to contact me with any other questions. ADDENDUM: I was asked to reevaluate Mr. Yen for admission after he reported to his nurse that he was having a "chest cramp." At that time, an EKG was obtained and there was concern for [address] depression in V3 and V4. A stat troponin was within normal limits. I went back to reevaluate Mr. Yen and he admits that he did have 1 brief episode of what he describes as a chest cramp in the middle of his chest that was not associated with exertion and resolved on its own after a few seconds. He states he gets this "once in a blue jasso." He has never had an ischemic cardiac workup. Of note, he did receive a liter of normal saline that I gave him and the ED repeated a BMP and his ISABEL is already resolved. Given the atypical chest pain with EKG changes, we will bring him in for observation, keep him on telemetry, and rule him out for acute coronary syndrome. We will also have physical therapy evaluate him since he expresses nervousness about being able to ambulate at home anyway. This will also allow us to monitor his heart rate as we hold his amiodarone today and plan to decrease the dose to 200 mg tomorrow. However, should he do well with amiodarone on hold, he may benefit from staying off the amiodarone long term care phlebotomist. While his recent discharge summary says that he had been on amiodarone 200 mg prior to that admission, the patient does not recall taking this, so it is possible that he was increased to 400 mg with the thought that he had been on 200 mg, but actually has not been taking it at all. I am admitting him to [address] [place] [address] for telemetry, serial troponins, and monitoring of his heart rate as we discontinued the amiodarone and see if he needs an alternative agent. [id number]/[facility] #: [id number]/[facility] #: [id number] [facility]
[2018-08-19] MEDS: oxyCODONE/Acetamin 5/325 MG* TAB PO PRN ×2 (15:14→19:58)
--- NOTE | 2018-08-19 17:10 | HP ---
DICTATION ENDS ABRUPTLY CONSULTATION REPORT: DATE OF CONSULT: 08/19/18 TIME OF CONSULTATION: 10 a.m. REQUESTING SERVICE: Emergency Department. CHIEF COMPLAINT: Leg pain. HISTORY OF PRESENT ILLNESS: This is a 57-year-old man with history of COPD and AFib who presented to the emergency department with 1 day of leg pain and tremors. He was recently discharged from our service on 08/16/18 where he was treated for. DICTATION ENDS ABRUPTLY [id number]/[facility] #: [id number] [facility]
[2018-08-19] MEDS ORDERED: Metoprolol Tartrate IV* 1 MG/ML 5 ML VIAL IV PRN (17:44)
[2018-08-19] MEDS ORDERED: Levalbuterol 1.25MG/0.5ML NEB ONE (18:01)
[2018-08-19] MEDS: Albuterol/Ipratropium NEB.SOL* Albuterol 2.5 MG/Ipratropium 0.5 MG 3 ML INH PRN ×3 (18:05→23:14)
[2018-08-19] MEDS ORDERED: Metoprolol Tartrate IV* 1 MG/ML 5 ML VIAL ONE (18:11)
[2018-08-19] MEDS ORDERED: Amiodarone TAB* 200 MG ONE (18:13)
[2018-08-19] MEDS: Amiodarone TAB* 200 MG PO ONE ×2 (18:24→18:52)
--- NOTE | 2018-08-19 19:29 | CONS ---
CONSULTATION REPORT: ADDENDUM: I was asked to reevaluate Mr. Yen for admission after he reported to his nurse that he was having a "chest cramp." At that time, an EKG was obtained and there was concern for [address] depression in V3 and V4. A stat troponin was within normal limits. I went back to reevaluate Mr. Yen and he admits that he did have 1 brief episode of what he describes as a chest cramp in the middle of his chest that was not associated with exertion and resolved on its own after a few seconds. He states he gets this "once in a blue jasso." He has never had an ischemic cardiac workup. Of note, he did receive a liter of normal saline that I gave him and the ED repeated a BMP and his ISABEL is already resolved. Given the atypical chest pain with EKG changes, we will bring him in for observation, keep him on telemetry, and rule him out for acute coronary syndrome. We will also have physical therapy evaluate him since he expresses nervousness about being able to ambulate at home anyway. This will also allow us to monitor his heart rate as we hold his amiodarone today and plan to decrease the dose to 200 mg tomorrow. However, should he do well with amiodarone on hold, he may benefit from staying off the amiodarone halfway. While his recent discharge summary says that he had been on amiodarone 200 mg prior to that admission, the patient does not recall taking this, so it is possible that he was increased to 400 mg with the thought that he had been on 200 mg, but actually has not been taking it at all. I am admitting him to [address] [place] [address] for telemetry, serial troponins, and monitoring of his heart rate as we discontinued the amiodarone and see if he needs an alternative agent. [id number]/[facility] #: [id number] [facility]
[2018-08-19] MEDS: Metoprolol Succinate XL TAB* 100 MG PO SCH (19:59)
[2018-08-19] MEDS: Magnesium Oxide TAB* 400 MG PO SCH (19:59)
[2018-08-20] MEDS: oxyCODONE/Acetamin 5/325 MG* TAB PO PRN ×2 (02:03→07:50)
[2018-08-20] MEDS: Albuterol/Ipratropium NEB.SOL* Albuterol 2.5 MG/Ipratropium 0.5 MG 3 ML INH PRN ×2 (02:59→08:30)
[2018-08-20 06:37] LABS: ABS Basophils 0 10^3/ul (0-0.2); ABS Eosinophils 0.1 10^3/ul (0-0.6); ABS Monocytes 1.2 10^3/ul (0-0.8); ABS Neutrophils 9.5 10^3/ul (1.5-7.7); ABS Nucleated RBC 0 10^3/ul; Eosinophil % 0.7 %; Hematocrit 35 % (42-52); Hemoglobin 11.9 g/dl (14.0-18.0); Lymphocyte % 8.6 %; Mean Corpuscular HGB Conc 34 g/dl (31-36); Mean Corpuscular Hemoglobin 33 pg (27-31); Mean Corpuscular Volume 98 fL (80-94); Mean Platelet Volume 7.5 fL (7.4-10.4); Nucleated Red Blood Cells % 0; Platelet Count 123 10^3/ul (150-450); Red Blood Count 3.56 10^6/ul (4.00-5.40); Red Cell Distribution Width 14 % (10.5-15); White Blood Count 11.8 10^3/ul (3.5-10.8)
[2018-08-20] MEDS: Metoprolol Succinate XL TAB* 100 MG PO SCH (07:50)
[2018-08-20] MEDS: Magnesium Oxide TAB* 400 MG PO SCH (07:50)
[2018-08-20] MEDS ORDERED: Amiodarone TAB* 200 MG PO SCH (09:00)
[2018-08-20] MEDS ORDERED: predniSONE TAB* 10 MG PO SCH ×2 (09:00)
[2018-08-20] MEDS ORDERED: Rivaroxaban TAB(*) 20 MG TAB PO SCH (09:00)
[2018-08-20] MEDS ORDERED: Potassium Chlor TAB* 10 MEQ TAB.ER PO SCH (09:00)
[2018-08-20] MEDS ORDERED: Losartan TAB* 25 MG PO SCH (09:00)
[2018-08-20] MEDS ORDERED: Umeclidinium 62.5 MDI(NF) MDI INH SCH (09:00)
[2018-08-20 09:05] VITALS: BP 144/83
--- NOTE | 2018-08-21 07:06 | DS ---
CC: Dr. Kennedy.* DISCHARGE SUMMARY: DATE OF ADMISSION: 08/19/18 DATE OF DISCHARGE: 08/20/18 PRINCIPAL DISCHARGE DIAGNOSES: 1. Leg cramping. 2. Leg pain. 3. Chest pain. SECONDARY DISCHARGE DIAGNOSES: 1. Atrial fibrillation. 2. Chronic obstructive pulmonary disease with recent exacerbation. 3. Chronic hypoxic respiratory failure, on nocturnal home O2. 4. Hypertension. 5. History of ulcerative colitis, status post colostomy. 6. Obstructive sleep apnea, on CPAP. 7. Sick sinus syndrome with a pacemaker. PHYSICAL EXAMINATION AT THE TIME OF DISCHARGE: General: Alert, well-appearing man, seen ambulating in the hallways, comfortably without any assistance. Vital Signs: Temperature 97.8, heart rate 78, respiratory rate 18, pulse ox 98 % on room air, blood pressure 144/83. HEENT: Pupils 2 mm bilaterally and reactive to light. No nystagmus. Oral mucosa is moist. Neck: No JVP, no cervical adenopathy. Chest: Regular rate and rhythm. No murmurs. Lungs: Tight bilaterally with a few expiratory wheezes. Abdomen: Soft, nontender, nondistended. Colostomy in the right upper quadrant. Extremities: No edema, no ulcers. He has a slight intention tremor and no pain to palpation of his legs. His distal pulses are 2+. His gait is normal. His sensation is grossly intact. HOSPITAL COURSE BY PROBLEM: 1. Leg pain and tremors. Mr. Yen presented with leg pain and tremors 2 days after taking an increased dose of amiodarone at home. His dose was increased from 200 to 400 mg when he was hospital and discharged a few days ago. He read the side effects and noted the tremors and pain could be related to amiodarone. So he presented to the emergency department. I saw him in consultation in the ED and recommended reducing his amiodarone back to 200 mg, which he had been well controlled on before, after I spoke with Cardiology and they agreed with our plan. Of note, Mr. Yen did not recall being on 200 mg prior to his last admission, however, this was on his admission record. On the day of admission, I held his amiodarone altogether to see if his heart rate would remain controlled while out of a COPD exacerbation on just the metoprolol ; however, he went into AFib with RVR, so I resumed his amiodarone at a lower dose of 200 mg daily and he converted to normal sinus rhythm. I discussed the case with Neurology and they agreed that tremors are the most common neurologic side effect of amiodarone and this is very common. 2. Leg pain. He had no alarming leg symptoms. The pain he described as aguero splints and a soreness, he had no neurologic findings or symptoms and he thinks that the leg pain is related to the tremors. On the day of discharge, his leg pain is already improved on the reduced dose of amiodarone and he is confident that it will continue to get better. 3. Chest pain. Mr. Yen was appropriate to be discharged from the ED until he complained of a "chest cramp" to the ED nurse and the ED doctor was concerned that there were ST depressions, so he was admitted for a chest pain rule out. Troponins remained negative, he had no further chest pain. His pain is atypical and I do not think an ischemic workup is warranted at this time, especially when he is in COPD exacerbation. 4. AFIb with RVR. On the night of admission as mentioned, he went in to AFib with RVR after we held his dose of amiodarone. His last hospitalization was complicated by very difficult to control AFib with RVR. It appears that they attempted Cardizem, but his blood pressure did not tolerate it and he responded very well to the amiodarone, so, I resumed 200 mg daily. This may not be the best medication for him care home and I wonder if digoxin or retrying Cardizem would be a better option for him. I am going to defer these changes to his silver cleaner, as he is to follow up with Dr. Kennedy next week. At the time of discharge, he is in normal sinus rhythm and he is on Xarelto. 4. UC, status post colostomy. 5. COPD with recent exacerbation. He remained on his prednisone taper that he was discharged with a few days ago. DISPOSITION: Mr. Yen is being discharged to home on 08/20/18. He has no home care needs. He is ambulating independently in the hallway without any difficulty. He has a followup with his primary care physician on Thursday and with his silver cleaner on . I have explained the plan about the amiodarone with him and the prednisone, he will continue this as he had been. [id number]/[facility] #: [id number] [facility]
== END 2018-08-20 11:30 | disposition home or self-care (01) ==
LOC: ED 05:09 → MEDTELE 13:57
PROVIDERS: ADMIT Internal Medicine; ATTEND Internal Medicine
DX: R25.2 Cramp and spasm (principal); M79.606 Pain in leg, unspecified; R07.9 Chest pain, unspecified; I48.91 Unspecified atrial fibrillation; J44.1 Chronic obstructive pulmonary disease with (acute) exacerbation; R09.02 Hypoxemia; I10 Essential (primary) hypertension; K51.90 Ulcerative colitis, unspecified, without complications; G47.33 Obstructive sleep apnea (adult) (pediatric); I49.5 Sick sinus syndrome; Z95.0 Presence of cardiac pacemaker; Z88.1 Allergy status to other antibiotic agents; Z87.891 Personal history of nicotine dependence
CPT/HCPCS: 36415; 71046; 80048; 80053; 81003; 82550; 83605; 83735; 84443; 84484; 85025; 93005; 94640; 96361; 96374; 96375; 99285; A9270-GY; G0378; J2060; J3010; J3490; J7512

== ENCOUNTER 2018-09-07 09:57 | Inpatient (IN) | payer OTHER ==
[2018-09-07] MEDS ORDERED: NS 0.9% 1000 ML* 1,000 ML IV ONE (10:19)
[2018-09-07] MEDS ORDERED: Morphine VIAL* 4 MG/ML VIAL (1 ml vial) IV ONE (10:21)
--- NOTE | 2018-09-07 10:21 | ED ---
HPI Chest Pain - HPI Summary HPI Summary: Patient is a 57 y/o M presenting to ED via ambulance with complaints of chest pain characterized as a pressure, light-headedness, SOB and dizziness onsetting this morning at 0100. EMS provided x2 nitro and x4 ASA with no relief in Sx. He reports similar prior episodes. Pt states sx started last night. No fever, chills. Pt went to PCP - EKG showed SVT - sent by EMS. In the room, he continues to experience Sx. Patient notes a nonproductive cough as well. He states that he is on metoprolol, losartan, xarelto, and states that he takes Cardizem. Patient is unsure if he took his medications this morning. He is a former smoker, quit two years ago, states that he stopped drinking alc two weeks ago, reports no withdrawal Sx, no drug usage reported. Patient has a pacemaker. On triage, pain is rated 7/10, nothing is noted to aggravate/ alleviate Sx. PMHx of afib, patient has had two ablations for afib with most recent being a week ago. Home medications and allergies are reviewed. - History of Current Complaint Chief Complaint: EDChestPainROMI Time Seen by Provider: 09/07/18 10:10 Hx Obtained From: Patient Onset/Duration: Started Hours Ago - onset 0100 today, Still Present Time of Onset: 01:00 Timing: Lasting Hours - onset 0100 Current Severity: Severe - 7/10 Pain Intensity: 7 Pain Scale Used: 0-10 Numeric - 7/10 Character: Pressure/Squeezing Aggravating Factor(s): Nothing Alleviating Factor(s): Nothing Associated Signs and Symptoms: Positive: Chest Pain, Dizziness, Shortness of Breath, Lightheadedness, Nonproductive Cough - Additional Pertinent History Primary Care Physician: [id number] - Allergy/Home Medications Allergies/Adverse Reactions: Allergies Allergy/AdvReac Type Severity Reaction Status Date / Time ciprofloxacin Allergy Itching Verified 09/07/18 10:18 Home Medications: Home Medications Diltiazem TAB* [Cardizem 30 MG Tab*] 30 mg PO BID PRN 09/07/18 [History Confirmed 09/07/18] Levalbuterol Tartrate [Levalbuterol Tartrate Hfa] 1 - 2 puff PO Q6H PRN [History Confirmed 09/07/18] Losartan Potassium [Cozaar] 50 mg PO DAILY 09/07/18 [History Confirmed 09/07/18] Metoprolol Succinate XL TAB* [Toprol XL TAB*] 100 mg PO TID 09/07/18 [History Confirmed 09/07/18] Pantoprazole TAB (NF) [Protonix TAB (NF)] 40 mg PO DAILY 09/07/18 [History Confirmed 09/07/18] Potassium Chloride [Klor-Con M10] 10 meq PO DAILY 09/07/18 [History Confirmed ] Sucralfate TAB* [Carafate*] 1 tab PO QID 09/07/18 [History Confirmed 09/07/18] Torsemide TAB* [Demadex 20 MG*] 10 - 20 mg PO SEE INSTRUCTIONS 09/07/18 [ History Confirmed 09/07/18] PMH/Surg Hx/FS Hx/Imm Hx Previously Healthy: No Endocrine/Hematology History: Reports: Hx Anticoagulant Therapy Denies: Hx Diabetes, Hx Systemic Lupus Erythematosus, Hx Thyroid Disease Cardiovascular History: Reports: Hx Atrial Fibrillation - no anticoagulants used currently, Hx Auto Implanted Cardiovert Defib, Hx Hypertension, Hx Syncope , Other Cardiovascular Problems/Disorders - A FIB Denies: Hx Congestive Heart Failure, Hx Deep Vein Thrombosis, Hx Myocardial Infarction, Hx Pacemaker/ICD Respiratory History: Reports: Hx Asthma, Hx Chronic Obstructive Pulmonary Disease (COPD), Other Respiratory Problems/Disorders - PNA Denies: Hx Lung Cancer, Hx Pneumonia, Hx Pulmonary Embolism GI History: Reports: Hx Gastrointestinal Bleed, Hx Obstructive Bowel, Hx Ileostomy - colostomy 2012, Other GI Disorders - colostomy, ulcerative colitis Denies: Hx Gall Bladder Disease, Hx Ulcer, Hx Urosepsis History: Denies: Hx Kidney Stones, Hx Renal Disease Musculoskeletal History: Reports: Hx Orthopedic Injury - surgeries in both knees Denies: Hx Arthritis, Hx Rheumatoid Arthritis, Hx Osteoporosis Sensory History: Reports: Hx Contacts or Glasses Denies: Hx Hearing Aid, Other Sensory Impairments Opthamlomology History: Reports: Hx Contacts or Glasses Denies: Other Sensory Impairments Neurological History: Denies: Hx Dementia, Hx Migraine, Hx Seizures, Hx Transient Ischemic Attacks (TIA) Psychiatric History: Denies: Hx Anxiety, Hx Depression, Hx Schizophrenia, Hx Bipolar Disorder - Cancer History Cancer Type, Location and Year: None reported Hx Chemotherapy: No - Surgical History Surgery Procedure, Year, and Place: COLECTOMY FOR ULCERATIVE COLITIS AT [facility] - has ostomy now 12/2012; bilat knees for cartilage. Tonsils Hx Anesthesia Reactions: No - Immunization History Date of Influenza Vaccine: 06/07/16 Infectious Disease History: No Infectious Disease History: Reports: Hx Hepatitis - hep c Denies: Hx Clostridium Difficile, Hx Human Immunodeficiency Virus (HIV), Hx of Known/Suspected MRSA, Hx Shingles, Hx Tuberculosis, Hx Known/Suspected VRE, Hx Known/Suspected VRSA, History Other Infectious Disease, Traveled Outside the [place] in Last 30 Days - Family History Known Family History: Positive: Hypertension, Respiratory Disease, Other - Pt adopted - Social History Alcohol Use: Occasionally Alcohol Amount: was daily Hx Substance Use: No Substance Use Type: Reports: None Hx Tobacco Use: Yes Smoking Status (MU): Former Smoker Type: Cigarettes Amount Used/How Often: 1/2 ppd Length of Time of Smoking/Using Tobacco: 40 years Have You Smoked in the Last Year: Yes Review of Systems Constitutional: Negative Positive: Chest Pain Positive: Shortness Of Breath, Cough, Other - productive sputum Neurological: Other - POSITIVE - DIZZINESS, LIGHTHEADEDESS All Other Systems Reviewed And Are Negative: Yes Physical Exam - Summary Physical Exam Summary: Vital Signs Reviewed: Yes A+Ox3, appears uncomfortable Eyes: Conjunctiva Clear, WALLACE. EOM intact and full ENT: Hearing grossly normal TM x 2 clear, mmoist, uvula midline, no exudate, no erythema Neck: Positive: Supple Respiratory: Positive: No respiratory distress, No accessory muscle use + CTA throughout no w/r Cardiovascular: RRR, tachy - nl s1, s2 no m/r CBT <2 sec -pt noted to appear sinus on tele- will recheck EKG abd soft + BS nt/nd no guarding, no distension Musculoskeletal Exam: CERRATO x 4 without difficulty Strength Intact, ROM Intact Neurological: Positive: Alert, + sensation throughout Psychological: Positive: Normal Response To Family Skin: Positive: no rash, no ecchymosis Triage Information Reviewed: Yes Vital Signs On Initial Exam: Initial Vitals Temp Pulse Resp BP Pulse Ox 97.5 F 159 19 107/79 95 09/07/18 10:02 09/07/18 10:02 09/07/18 10:02 09/07/18 10:02 09/07/18 10:02 Diagnostics - Vital Signs Vital Signs Temp Pulse Resp BP Pulse Ox 09/07/18 10:02 97.5 F 159 19 107/79 95 - Laboratory Result Diagrams: 09/07/18 10:21 09/07/18 10:21 Lab Statement: Any lab studies that have been ordered have been reviewed, and results considered in the medical decision making process. - Radiology No standard instances Radiology Interpretation Completed By: Radiologist - Patient Name: REMA MARVIN Medical Record#: [id number] Ordering Physician: Whit Garcia MD Acct.#: [id number] : 1960 Age: 57 Sex: M Location: EMERGENCY DEPARTMENT Exam Date: 09/07/18 1020 ADM Status: REG ER Order Information: CHEST AP PORTABLE Accession Number: [id number] CPT: 13204 INDICATION: Chest pain. COMPARISON: Comparison is made with prior study from August 10, 2018. TECHNIQUE: A portable view of the chest was obtained. FINDINGS: The heart is within normal limits in size. There is a dual-chamber transvenous pacemaker present. Mediastinal contours appear normal. The lungs are hyperinflated with bilateral emphysematous change which is more severe in the left lung. No significant infiltrate or pleural effusion is seen. IMPRESSION: EMPHYSEMA, NO EVIDENCE FOR ACUTE FINDING. ____ <Electronically signed by Dayron Jose MD in OV> 09/07/18 1045 Dictated By: Dayron Jose MD Dictated Date/Time: 09/07/18 1045 Transcribed Date/Time: 09/07/18 1043 Copy to: CC:Allyn Heredia MD; Whit Garcia MD Imaging - [facility] Imaging - [facility] Imaging - [facility] [address] [address] ph ([phone]) ph ([phone]) ph ([phone]) This report is only to be considered final once signed by the Provider(s) as displayed in the "<Electronically Signed by >" field (s). Absence of a signature indicates the report is in a draft status and still needs to be finalized. In the event this document was created by someone other than the signing Provider, the individual initiating the document will be listed in the "Entered by:" or "Dictated by:" key. 1 of 1 - EKG 1001 Cardiac Rate: Other Rate - SVT with rate of 159 BPM EKG Rhythm: SVT Summary of EKG Findings: EKG showed SVT with rate of 159 BPM, no acute changes. 1017 Cardiac Rate: Tachycardia - rate of 106 bpm EKG Rhythm: Sinus Tachycardia Summary of EKG Findings: EKG showed sinus tachycardia with rate of 106 BPM, no acute changes, resolved SVT. Chest Pain Course/Dx - Course Course Of Treatment: Patient presents to urgent care by EMS. Patient with a history of atrial fibrillation hypertension. Patient states starting at 10:00 last night developed chest pain and shortness of breath. Patient with his PCP this morning when he was found to be in rapid SVT. Patient was given aspirin and nitroglycerin en route with little improvement. On arrival here patient's EKG also showed SVT. Patient with plan oxygen and converted to sinus while heaving here. Patient states the pain is better but continues to be present. Patient without any nausea. Patient states he has had a cough productive of yellow sputum for approximately one week. We'll check chest x-ray, labs, and repeat EKG confirms sinus. We'll give patient with fluid and some little bit of morphine to see if we can help his discomfort. Patient comfortable in agreement with plan. - Diagnoses Provider Diagnoses: SVT (supraventricular tachycardia), Chest pain Discharge - Sign-Out/Discharge Documenting (check all that apply): Patient Departure - Discharge Plan Condition: Improved Disposition: ADMITTED TO [facility] Referrals: Allyn Heredia MD [Primary Care Provider] - - Billing Disposition and Condition Condition: IMPROVED Disposition: Admitted to [facility] - Attestation Statements Provider Attestation: I was available for consult. This patient was seen by the JOSE J. The patient was not presented to, seen by, or examined by me. -Nikolas
[2018-09-07 10:37] LABS: Hematocrit 39 % (42-52); Hemoglobin 13.3 g/dl (14.0-18.0); Mean Corpuscular HGB Conc 34 g/dl (31-36); Mean Corpuscular Hemoglobin 33 pg (27-31); Mean Corpuscular Volume 98 fL (80-94); Mean Platelet Volume 7.8 fL (7.4-10.4); Platelet Count 228 10^3/ul (150-450); Red Cell Distribution Width 14 % (10.5-15); White Blood Count 13.1 10^3/ul (3.5-10.8)
[2018-09-07 10:57] LABS: Albumin 3.9 g/dL (3.2-5.2); Albumin/Globulin Ratio 1.6 (1-3); Calcium 8.4 mg/dL (8.6-10.3); Globulin 2.4 g/dL (2-4); Potassium 3.7 mmol/L (3.5-5.0); Total Bilirubin 0.7 mg/dL (0.2-1.0); Total Protein 6.3 g/dL (6.4-8.9)
--- NOTE | 2018-09-07 11:04 | UC ---
- Progress Note Progress Note: labs reviewed trop 0.08 Pt given ASA by EMS pt sx improved following morphine still with little SOB - pt with slight wheeze- uses inhalers (Albuterol, symbicort) at home - will give xoponex CxR no acute process- emphysema Will d/w with Dr. Galdamez regarding admission 09/07/18 11:14 will accept admissioin pt magnesium 2g for Mag 1.0 Course/Dx - Diagnoses Provider Diagnoses: SVT (supraventricular tachycardia), Chest pain, Hypomagnesemia - Provider Notifications Discussed Care Of Patient With: Anita Galdamez - 11:15 accepting Instructed by Provider To: Admit As Observation Discharge - Sign-Out/Discharge Documenting (check all that apply): Patient Departure - Discharge Plan Condition: Improved Disposition: ADMITTED TO [facility] Referrals: Allyn Heredia MD [Primary Care Provider] - - Billing Disposition and Condition Condition: IMPROVED Disposition: Admitted to [facility]
[2018-09-07] MEDS ORDERED: Levalbuterol 0.63MG/3ML NEB* UNIT OF USE INH ONE (11:06)
[2018-09-07 11:09] LABS: ABS Basophils 0.1 10^3/ul (0-0.2); ABS Eosinophils 0.3 10^3/ul (0-0.6); ABS Lymphocytes 0.9 10^3/ul (1.0-4.8); ABS Monocytes 1.6 10^3/ul (0-0.8); ABS Neutrophils 10.3 10^3/ul (1.5-7.7)
[2018-09-07 11:10] LABS: Immature Granulocytes 10 % (0-9); Lymphocytes % 13 %; Metamyelocytes % 3 % (0-2); Monocytes % 5 %; Myelocytes % 4 % (0-1); Neutrophil % 71 %
[2018-09-07 11:11] LABS: ABS Neutrophils 10.61 10^3/ul (1.5-7.7)
[2018-09-07 11:12] LABS: ABS Eosinophils 0.131 10^3/ul (0-0.6)
[2018-09-07] MEDS ORDERED: Magnesium Sulfate 2 GM IV* 2 GM/50 ML BAG IVPB ONE (11:14)
[2018-09-07] MEDS ORDERED: NS 0.9% 1000 ML* 1,000 ML IV SCH (12:00)
[2018-09-07] MEDS ORDERED: Al Hydrox/Mg Hydrox/Simet LIQ* 30 ML UDC PO PRN (12:35)
[2018-09-07] MEDS ORDERED: Diltiazem TAB* 30 MG PO PRN (13:15)
[2018-09-07] MEDS: Metoprolol Succinate XL TAB* 100 MG PO SCH ×2 (13:37→20:59)
[2018-09-07] MEDS: NS 0.9% 1000 ML* 1,000 ML IV SCH ×3 (13:55→23:28)
[2018-09-07] MEDS ORDERED: Torsemide TAB* 20 MG PO SCH (14:00)
--- NOTE | 2018-09-07 15:25 | HP ---
CC: Dr. Kennedy; Dr. Heredia * HISTORY AND PHYSICAL: DATE OF ADMISSION: 09/07/18 TIME OF ADMISSION: 1 p.m. CHIEF COMPLAINT: Lightheadedness and palpitations. HISTORY OF PRESENT ILLNESS: This is a 57-year-old man with longstanding history of AFib which has been difficult to control, who presented to the emergency department today with lightheadedness. He underwent an ablation last week and has been doing okay at home. Then, at 1 a.m. this morning, he woke up and was feeling lightheaded and had some chest discomfort. He took his blood pressure at that time and the systolic was 87 and his heart rate was 121. He ate something and went back to sleep and at 4 a.m. he woke up again, took his vitals and his systolic was in the 80s and his heart rate was 151 and he was feeling lightheaded, but he took the diltiazem p.r.n. that he is ordered and went back to sleep. He went to his primary care physician's office this morning for followup. She found him to be in RVR again and she sent him here. While in the emergency department, he converted to normal sinus rhythm spontaneously and without intervention. At this time, he is feeling good and has no complaints. PAST MEDICAL HISTORY: 1. Atrial flutter. 2. COPD. 3. Chronic hypoxic respiratory failure, on nocturnal home O2. 4. Hypertension. 5. History of UC, status post colostomy. 6. Obstructive sleep apnea, on CPAP. 7. Sick sinus syndrome with a pacemaker. PAST SURGICAL HISTORY: He has a history of colostomy due to UC and 2 ablations and a pacemaker. HOME MEDICATIONS: 1. Amiodarone 200 mg daily. 2. Diltiazem 30 mg b.i.d. p.r.n. tachycardia. 3. Toprol-XL 100 mg t.i.d. 4. Protonix 40 mg daily. 5. Xarelto 20 mg daily. 6. Torsemide 20 mg daily p.r.n. swelling. 7. Incruse Ellipta 1 inhaled daily. SOCIAL HISTORY: He quit smoking 2 years ago. He quit drinking 3 weeks ago. Prior to that, he was drinking 2 alcoholic beverages per day. He is not currently working. His emergency contact is his friend, Julia Lele. REVIEW OF SYSTEMS: As per the HPI. Remainder of the 14-point review of systems is negative. He has been taking his prescriptions as ordered. He takes amiodarone, diltiazem , metoprolol and Xarelto. He has not missed any medications. He has not been sick recently. He does note that he was started on a diuretic 1 week ago and feels quite thirsty. PHYSICAL EXAMINATION GENERAL: Alert, well-appearing man in no distress. He is sitting up in bed, talking with me comfortably and is able to speak in full sentences. He coughs a few times through our exam. VITAL SIGNS: Temperature 97.1, heart rate 98, respiratory rate 20, pulse ox 99 % on 2 L, blood pressure 106/64. HEENT: Pupils equal, round and reactive to light. Oral mucosa is dry. NECK: No JVP. Neck veins are flat. No cervical adenopathy. LUNGS: His lungs have a few scattered wheezes. CHEST: Regular rhythm. No murmurs. ABDOMEN: Colostomy is noted in the right upper quadrant. No tenderness, guarding or rebound. EXTREMITIES: No edema, no ulcers, no lesions. DIAGNOSTIC STUDIES/LAB DATA: White blood cells 13.1, hemoglobin 13.3, platelets 228. Sodium 137, potassium 3.7, chloride 102, bicarb 25, creatinine 1.19, glucose 113, magnesium 1.0. Troponin 0.08, 0.08. Chest x-ray, emphysema. EKG: His most recent EKG shows sinus tachycardia at 106 with a normal axis, normal intervals. No Q-waves. He has lateral ST depressions, but his initial EKG showed atrial flutter at 159. No chamber hypertrophy. ASSESSMENT AND PLAN: This is a 57-year-old man with history of atrial flutter and atrial fibrillation, who presented to the emergency department with lightheadedness and chest pressure and was found to be in atrial flutter with rapid ventricular response. 1. Atrial flutter with rapid ventricular response. He has had very difficult to control supraventricular tachycardia for a long time and has had a complicated course. At this point, I think having failed 2 ablations, he needs an alternative treatment. However, what I think may have contributed to his decompensation now is that he appears quite dry. I think he may be over diuresed with the torsemide he has been taking. I would like to get him a little IV fluid and replaced his magnesium. I have discussed the case with Dr. Garcia and raised the question if digoxin would be worth adding and he recommends no digoxin as he does not think it will make a difference and recommends followup with Dr. Kennedy. I will discuss the case with Dr. Kennedy. Dr. Garcia also added that the next step would be to ablate his AV node and permanently pace him, but since Mr. Yen follows with [facility], he will defer to their management. He had been increased on amiodarone to 400 mg daily, but he had neurologic side effect, so I cannot increase the dose of amiodarone either. 2. Hypomagnesemia. Again, I think he is over-diuresed and I am replacing his magnesium and this may help his supraventricular tachycardia; however, hypomagnesemia is not likely to cause supraventricular tachycardia, but rather ventricular arrhythmias, which he is not having. 3. Obstructive sleep apnea. Continue home CPAP. 4. Chronic obstructive pulmonary disease. He does have some wheezes, but I do not think he is in a fulminant exacerbation. I will put him on nebs p.r.n. 5. Chronic hypoxic respiratory failure. He uses home O2 at night. 6. Hypertension. He is normotensive at this time. 7. Elevated troponin, likely demand in the setting of rapid ventricular response. 8. DVT prophylaxis. He is therapeutically anticoagulated with Xarelto. [id number]/[facility] #: [id number] [facility]
[2018-09-07] MEDS: Sucralfate TAB* 1 GM PO SCH ×2 (16:04→20:58)
[2018-09-07] MEDS: Levalbuterol 1.25MG/0.5ML NEB INH PRN ×2 (16:42→21:49)
[2018-09-07] MEDS: Magnesium Oxide TAB* 400 MG PO SCH (20:58)
[2018-09-07] MEDS: methylPREDNISolone SOD 40 MG* 1 ML VIAL IV SCH (22:18)
[2018-09-08] MEDS ORDERED: Albuterol/Ipratropium NEB.SOL* Albuterol 2.5 MG/Ipratropium 0.5 MG 3 ML INH ONE (01:49)
[2018-09-08] MEDS ORDERED: Magnesium Sulfate 2 GM IV* 2 GM/50 ML BAG IVPB ONE (01:53)
[2018-09-08] MEDS: Levalbuterol 1.25MG/0.5ML NEB INH PRN (01:59)
--- NOTE | 2018-09-08 02:09 | PN ---
Progress Note - Progress Note Date of Service: 09/08/18 Note: Paged for SOB and increase in work of breathing. Patient sitting on edge of bed , tri-podding, tachypneic, diaphoretic. Poor air movement with wheezes b/l. Duoneb ordered. Patient to be transferred to ICU - will trial Vapotherm if no success will switch to BiPAP. Repeat CXR and ordered xopenex more frequently with duonebs as well. EKG ordered. On steroids. Patient states he does not wear CPAP or BiPAP at bedtime - is scheduled to see Dr. Franco to set this up. Also only wears oxygen as needed. Needs overnight pulse oximetry when more stable.
[2018-09-08] MEDS ORDERED: Morphine VIAL* 4 MG/ML VIAL (1 ml vial) IV ONE (02:21)
[2018-09-08] MEDS ORDERED: Morphine VIAL* 4 MG/ML VIAL (1 ml vial) ONE (02:26)
[2018-09-08 03:39] LABS: ABS Basophils 0.1 10^3/ul (0-0.2); ABS Eosinophils 0.1 10^3/ul (0-0.6); ABS Lymphocytes 0.3 10^3/ul (1.0-4.8); ABS Monocytes 0.2 10^3/ul (0-0.8); ABS Neutrophils 10.2 10^3/ul (1.5-7.7); ABS Nucleated RBC 0 10^3/ul; Eosinophil % 0.5 %; Hematocrit 33 % (42-52); Hemoglobin 11.1 g/dl (14.0-18.0); Lymphocyte % 2.4 %; Mean Corpuscular HGB Conc 34 g/dl (31-36); Mean Corpuscular Hemoglobin 34 pg (27-31); Mean Corpuscular Volume 100 fL (80-94); Nucleated Red Blood Cells % 0.1; Platelet Count 158 10^3/ul (150-450); Red Blood Count 3.28 10^6/ul (4.00-5.40); Red Cell Distribution Width 14 % (10.5-15); White Blood Count 10.8 10^3/ul (3.5-10.8)
[2018-09-08 03:47] LABS: BUN/Creatinine Ratio 10.5 (8-20); Calcium 7.9 mg/dL (8.6-10.3); EGFR Non-African American 72.8 (>60); Magnesium 2.4 mg/dL (1.9-2.7); Phosphorus 1.8 mg/dL (2.5-5.0)
[2018-09-08 03:51] LABS: Potassium 5.1 mmol/L (3.5-5.0)
--- NOTE | 2018-09-08 07:24 | PN ---
Subjective Date of Service: 09/08/18 Interval History: Mr. Yen became more short of breath overnight and was transferred to the ICU for work of breathing and responded well to vapotherm. New CXR to me shows hyperinflation and a possible linear infiltrate at the right middle lobe? Will follow up official read. He feels okay this morning, but got very short of breath just walking to the toilet to empty his ostomy. Objective Active Medications: Acetaminophen (Tylenol Tab*) 650 mg PO Q4H PRN PRN Reason: FEVER/PAIN Al Hydrox/Mg Hydrox/Simethicone (Maalox Plus*) 30 ml PO Q6H PRN PRN Reason: INDIGESTION Albuterol/Ipratropium (Duoneb (Albuterol 2.5 Mg/Ipratropium 0.5 Mg)) 1 neb INH Q4H PRN PRN Reason: SOB/WHEEZING Amiodarone HCl (Cordarone Tab*) 200 mg PO DAILY [facility] Diltiazem HCl (Cardizem Tab*) 30 mg PO BID PRN PRN Reason: TACHYCARDIA Sodium Chloride (Ns 0.9% 1000 Ml*) 1,000 mls @ 175 mls/hr IV PER RATE [facility] Last Admin: 09/07/18 23:28 Dose: 175 mls/hr Levalbuterol HCl (Xopenex 1.25 Mg/0.5 Ml Neb.Leona*) 1.25 mg INH Q2HR PRN PRN Reason: SOB/WHEEZING Last Admin: 09/08/18 01:59 Dose: 1.25 mg Magnesium Oxide (Magox 400 Tab*) 400 mg PO BID [facility] Last Admin: 09/07/18 20:58 Dose: 400 mg Methylprednisolone Sodium Succinate (Solu-Medrol 40 Mg) 40 mg IV Q12H [facility] Last Admin: 09/07/18 22:18 Dose: 40 mg Metoprolol Succinate (Toprol Xl Tab*) 100 mg PO TID [facility] Last Admin: 09/07/18 20:59 Dose: 100 mg Omeprazole (Prilosec Cap*) 20 mg PO DAILY@0730 [facility] Rivaroxaban (Xarelto(*)) 20 mg PO DAILY [facility] Sucralfate (Carafate*) 1 gm PO QID [facility] Last Admin: 09/07/18 20:58 Dose: 1 gm Umeclidinium [place] (Incruse Ellipta Mdi (Nf)) 1 inh INH DAILY [facility] Vital Signs - 8 hr 09/07/18 09/08/18 09/08/18 23:35 02:00 02:09 Temperature 97.7 F 96.5 F Pulse Rate 73 82 73 Respiratory 20 20 22 Rate Blood Pressure 102/68 155/91 (mmHg) O2 Sat by Pulse 97 95 99 Oximetry 09/08/18 09/08/18 09/08/18 02:21 02:30 02:34 Temperature Pulse Rate 71 68 Respiratory 24 19 25 Rate Blood Pressure 155/91 136/87 (mmHg) O2 Sat by Pulse 99 99 Oximetry 09/08/18 09/08/18 09/08/18 02:46 03:00 03:01 Temperature Pulse Rate 66 62 63 Respiratory 16 19 17 Rate Blood Pressure 122/70 115/72 (mmHg) O2 Sat by Pulse 98 99 100 Oximetry 09/08/18 09/08/18 09/08/18 03:17 03:31 03:46 Temperature Pulse Rate 64 64 60 Respiratory 17 12 15 Rate Blood Pressure 125/67 113/47 123/59 (mmHg) O2 Sat by Pulse 99 98 98 Oximetry 09/08/18 09/08/18 09/08/18 03:48 04:00 04:01 Temperature 97.4 F Pulse Rate 60 60 Respiratory 15 16 Rate Blood Pressure 130/79 (mmHg) O2 Sat by Pulse 99 98 Oximetry 09/08/18 09/08/18 09/08/18 04:16 04:26 04:30 Temperature Pulse Rate 60 60 Respiratory 14 20 17 Rate Blood Pressure 112/67 129/83 (mmHg) O2 Sat by Pulse 100 98 Oximetry 09/08/18 09/08/18 09/08/18 04:45 05:00 05:01 Temperature Pulse Rate 60 60 60 Respiratory 15 20 19 Rate Blood Pressure 140/90 132/81 (mmHg) O2 Sat by Pulse 99 99 100 Oximetry 09/08/18 09/08/18 09/08/18 05:15 05:30 05:45 Temperature Pulse Rate 61 60 63 Respiratory 19 18 15 Rate Blood Pressure 122/86 140/90 150/95 (mmHg) O2 Sat by Pulse 100 100 99 Oximetry 09/08/18 09/08/18 06:00 06:01 Temperature Pulse Rate 68 64 Respiratory 21 16 Rate Blood Pressure 128/81 (mmHg) O2 Sat by Pulse 99 98 Oximetry Oxygen Devices in Use Now: High Flow Heated Nasal Cannula Appearance: anxious, sitting on the edge of bed and tachypneic. work of breathing is okay, but not able to speak in full sentences Eyes: No Scleral Icterus Ears/Nose/Mouth/Throat: NL Teeth, Lips, Gums Neck: NL Appearance and Movements; NL JVP Respiratory: - - poor air movement with end expiratory wheezes Cardiovascular: NL Sounds; No Murmurs; No JVD, RRR Abdominal: NL Sounds; No Tenderness; No Distention Lymphatic: No Cervical Adenopathy Extremities: - - trace leg edema Skin: No Rash or Ulcers Neurological: Alert and Oriented x 3 Result Diagrams: 09/08/18 03:22 09/08/18 03:22 Assess/Plan/Problems-Billing Assessment: This is a 57 year old man with history of afib/flutter s/p recent ablation (the 2nd one this year) who presented with lightheadedness and palpitations and was found to be in atrial flutter, now with respiratory failure and a copd exacerbation. - Patient Problems (1) Acute and chronic respiratory failure with hypoxia Current Visit: No Status: Acute Code(s): J96.21 - ACUTE AND CHRONIC RESPIRATORY FAILURE WITH HYPOXIA SNOMED Code(s): 32431671 Comment: due to COPD exacerbation continue vapotherm and wean as able today (2) Atrial flutter Current Visit: Yes Status: Acute Code(s): I48.92 - UNSPECIFIED ATRIAL FLUTTER SNOMED Code(s): 6169969 Comment: now controlled in NSR 60s-70s has had a complicated course with 2 ablations this year discussed options with Dr. Garcia--he recommends re-evaluation by [facility] hosting engineer at [place] to consider ablation of the AV node and permanent pacing. not available at this facility, will need to follow up there. Anticoagulated with xarelto (3) COPD exacerbation Current Visit: No Status: Acute Code(s): J44.1 - CHRONIC OBSTRUCTIVE PULMONARY DISEASE W (ACUTE) EXACERBATION SNOMED Code(s): 925551723 Comment: continue xopenex, duonebs, and solumedrol (4) Hx of ulcerative colitis Current Visit: No Status: Chronic Priority: Medium Code(s): Z87.19 - PERSONAL HISTORY OF OTHER DISEASES OF THE DIGESTIVE SYSTEM SNOMED Code(s): 767955150 Comment: - Complete colectomy w/ ileostomy; no signs of disease activity
[2018-09-08] MEDS: Omeprazole CAP* 20 MG PO SCH (07:36)
[2018-09-08] MEDS: Albuterol/Ipratropium NEB.SOL* Albuterol 2.5 MG/Ipratropium 0.5 MG 3 ML INH PRN ×4 (07:41→23:13)
[2018-09-08] MEDS: Metoprolol Succinate XL TAB* 100 MG PO SCH ×3 (08:38→21:07)
[2018-09-08] MEDS: Sucralfate TAB* 1 GM PO SCH ×4 (08:38→23:06)
[2018-09-08] MEDS: Rivaroxaban TAB(*) 20 MG TAB PO SCH (08:39)
[2018-09-08] MEDS: Amiodarone TAB* 200 MG PO SCH (08:39)
[2018-09-08] MEDS: Magnesium Oxide TAB* 400 MG PO SCH ×2 (08:39→21:08)
[2018-09-08] MEDS ORDERED: Losartan TAB* 25 MG PO SCH (09:00)
[2018-09-08] MEDS: Umeclidinium 62.5 MDI(NF) MDI INH SCH (10:47)
[2018-09-08] MEDS: methylPREDNISolone SOD 40 MG* 1 ML VIAL IV SCH ×2 (12:20→21:07)
[2018-09-08 16:08] LABS: Barbiturates Urine Screen None Detected (None Detect); Benzodiazepine Urine Screen None Detected (None Detect); Urine Cannabinoids Screen None Detected (None Detect)
[2018-09-08] MEDS: ALPRAZolam TAB* 0.25 MG PO PRN (19:09)
[2018-09-09] MEDS: Albuterol/Ipratropium NEB.SOL* Albuterol 2.5 MG/Ipratropium 0.5 MG 3 ML INH PRN ×3 (03:43→20:32)
[2018-09-09] MEDS: Sucralfate TAB* 1 GM PO SCH ×4 (06:30→23:49)
[2018-09-09 06:37] LABS: Hematocrit 29 % (42-52); Mean Corpuscular HGB Conc 34 g/dl (31-36); Mean Corpuscular Hemoglobin 34 pg (27-31); Mean Corpuscular Volume 99 fL (80-94); Mean Platelet Volume 7.7 fL (7.4-10.4); Platelet Count 142 10^3/ul (150-450); Red Blood Count 2.98 10^6/ul (4.00-5.40); Red Cell Distribution Width 14 % (10.5-15); White Blood Count 15.4 10^3/ul (3.5-10.8)
[2018-09-09 06:58] LABS: BUN/Creatinine Ratio 17.6 (8-20); Calcium 8.3 mg/dL (8.6-10.3); EGFR Non-African American 92.9 (>60); Magnesium 1.8 mg/dL (1.9-2.7); Potassium 4.8 mmol/L (3.5-5.0)
[2018-09-09] MEDS ORDERED: Magnesium Oxide TAB* 400 MG PO ONE (07:11)
[2018-09-09] MEDS: Omeprazole CAP* 20 MG PO SCH (08:43)
[2018-09-09] MEDS: Metoprolol Succinate XL TAB* 100 MG PO SCH ×3 (08:43→20:51)
[2018-09-09] MEDS: Amiodarone TAB* 200 MG PO SCH (08:43)
[2018-09-09] MEDS: Rivaroxaban TAB(*) 20 MG TAB PO SCH (08:45)
[2018-09-09] MEDS: Umeclidinium 62.5 MDI(NF) MDI INH SCH (09:49)
--- NOTE | 2018-09-09 10:20 | PN ---
Subjective Date of Service: 09/09/18 Interval History: Feeling better this morning. Last night around 7pm he had an "episode" of shortness of breath that resolved with a duoneb. He says this is usual for him at that time of day--he always has shortness of breath between 7 and 8pm. He is down to 2L O2/min and has been walking to the toilet feeling okay. He has no pain. Objective Active Medications: Acetaminophen (Tylenol Tab*) 650 mg PO Q4H PRN PRN Reason: FEVER/PAIN Al Hydrox/Mg Hydrox/Simethicone (Maalox Plus*) 30 ml PO Q6H PRN PRN Reason: INDIGESTION Albuterol/Ipratropium (Duoneb (Albuterol 2.5 Mg/Ipratropium 0.5 Mg)) 1 neb INH Q4H PRN PRN Reason: SOB/WHEEZING Last Admin: 09/09/18 03:43 Dose: 1 neb Alprazolam (Xanax Tab*) 0.25 mg PO Q8H PRN PRN Reason: ANXIETY Last Admin: 09/08/18 19:09 Dose: 0.25 mg Amiodarone HCl (Cordarone Tab*) 200 mg PO DAILY [facility] Last Admin: 09/09/18 08:43 Dose: 200 mg Diltiazem HCl (Cardizem Tab*) 30 mg PO BID PRN PRN Reason: TACHYCARDIA Levalbuterol HCl (Xopenex 1.25 Mg/0.5 Ml Neb.Leona*) 1.25 mg INH Q2HR PRN PRN Reason: SOB/WHEEZING Last Admin: 09/08/18 01:59 Dose: 1.25 mg Magnesium Oxide (Magox 400 Tab*) 400 mg PO BID [facility] Last Admin: 09/08/18 21:08 Dose: 400 mg Methylprednisolone Sodium Succinate (Solu-Medrol 40 Mg) 40 mg IV Q12H [facility] Last Admin: 09/08/18 21:07 Dose: 40 mg Metoprolol Succinate (Toprol Xl Tab*) 100 mg PO TID [facility] Last Admin: 09/09/18 08:43 Dose: 100 mg Omeprazole (Prilosec Cap*) 20 mg PO DAILY@0730 [facility] Last Admin: 09/09/18 08:43 Dose: 20 mg Rivaroxaban (Xarelto(*)) 20 mg PO DAILY [facility] Last Admin: 09/09/18 08:45 Dose: 20 mg Sucralfate (Carafate*) 1 gm PO 0630,1100,1600,2100 [facility] Last Admin: 09/09/18 06:30 Dose: 1 gm Umeclidinium [place] (Incruse Ellipta Mdi (Nf)) 1 inh INH DAILY [facility] Last Admin: 09/09/18 09:49 Dose: Not Given Vital Signs - 8 hr 09/09/18 09/09/18 09/09/18 03:00 03:43 04:00 Temperature Pulse Rate 73 72 60 Respiratory 31 16 20 Rate Blood Pressure 116/89 103/74 (mmHg) O2 Sat by Pulse 99 99 100 Oximetry 09/09/18 09/09/18 09/09/18 05:00 06:00 07:00 Temperature Pulse Rate 61 60 80 Respiratory 18 16 18 Rate Blood Pressure 117/74 117/72 119/80 (mmHg) O2 Sat by Pulse 98 99 98 Oximetry 09/09/18 09/09/18 09/09/18 07:01 08:00 08:01 Temperature Pulse Rate 71 60 60 Respiratory 17 18 19 Rate Blood Pressure 139/75 (mmHg) O2 Sat by Pulse 98 100 100 Oximetry 09/09/18 09/09/18 09/09/18 08:12 09:00 10:00 Temperature 97 F Pulse Rate 80 79 Respiratory 22 18 Rate Blood Pressure 132/82 (mmHg) O2 Sat by Pulse 95 98 Oximetry 09/09/18 10:01 Temperature Pulse Rate 82 Respiratory 16 Rate Blood Pressure 104/63 (mmHg) O2 Sat by Pulse 99 Oximetry Oxygen Devices in Use Now: Nasal Cannula Appearance: alert, no distress, but becomes tachypneic with speaking. Eyes: No Scleral Icterus Ears/Nose/Mouth/Throat: NL Teeth, Lips, Gums Neck: NL Appearance and Movements; NL JVP Respiratory: - - diffuse end expiratory wheezes with diffuse diminished breath sounds and prolonged expiratory phase. Cardiovascular: NL Sounds; No Murmurs; No JVD, RRR Abdominal: NL Sounds; No Tenderness; No Distention Result Diagrams: 09/09/18 06:30 09/09/18 06:30 Assess/Plan/Problems-Billing Assessment: This is a 57 year old man with history of afib/flutter s/p recent ablation (the 2nd one this year) who presented with lightheadedness and palpitations and was found to be in atrial flutter, now with respiratory failure and a copd exacerbation. - Patient Problems (1) Acute and chronic respiratory failure with hypoxia Current Visit: No Status: Acute Code(s): J96.21 - ACUTE AND CHRONIC RESPIRATORY FAILURE WITH HYPOXIA SNOMED Code(s): 44303314 Comment: due to COPD exacerbation weaned from vaoptherm and improving slowly but still markedly exacerbated (2) COPD exacerbation Current Visit: No Status: Acute Code(s): J44.1 - CHRONIC OBSTRUCTIVE PULMONARY DISEASE W (ACUTE) EXACERBATION SNOMED Code(s): 702475024 Comment: continue xopenex, duonebs, and solumedrol (3) Atrial flutter Current Visit: Yes Status: Acute Code(s): I48.92 - UNSPECIFIED ATRIAL FLUTTER SNOMED Code(s): 6391303 Comment: now controlled in NSR 60s-70s has had a complicated course with 2 ablations this year discussed options with Dr. Garcia--he recommends re-evaluation by [employer] group fitness assistant department head at [place] to consider ablation of the AV node and permanent pacing. not available at this facility, will need to follow up there. Anticoagulated with xarelto (4) Hx of ulcerative colitis Current Visit: No Status: Chronic Priority: Medium Code(s): Z87.19 - PERSONAL HISTORY OF OTHER DISEASES OF THE DIGESTIVE SYSTEM SNOMED Code(s): 378711340 Comment: Complete colectomy w/ ileostomy; no signs of disease activity
[2018-09-09] MEDS: methylPREDNISolone SOD 40 MG* 1 ML VIAL IV SCH ×2 (10:40→21:12)
[2018-09-09] MEDS: Magnesium Oxide TAB* 400 MG PO SCH ×2 (13:31→20:51)
[2018-09-10] MEDS: Albuterol/Ipratropium NEB.SOL* Albuterol 2.5 MG/Ipratropium 0.5 MG 3 ML INH PRN (02:04)
[2018-09-10] MEDS: Sucralfate TAB* 1 GM PO SCH ×4 (05:59→23:47)
[2018-09-10] MEDS: Albuterol/Ipratropium NEB.SOL* Albuterol 2.5 MG/Ipratropium 0.5 MG 3 ML INH SCH ×3 (07:49→19:51)
[2018-09-10] MEDS: Mometasone/Formoter 200/5 MDI INH SCH ×2 (07:50→23:59)
[2018-09-10] MEDS: Umeclidinium 62.5 MDI(NF) MDI INH SCH (07:59)
[2018-09-10 08:44] LABS: Hematocrit 34 % (42-52); Hemoglobin 11.3 g/dl (14.0-18.0); Mean Corpuscular HGB Conc 33 g/dl (31-36); Mean Corpuscular Hemoglobin 33 pg (27-31); Mean Corpuscular Volume 100 fL (80-94); Mean Platelet Volume 7.4 fL (7.4-10.4); Platelet Count 187 10^3/ul (150-450); Red Blood Count 3.39 10^6/ul (4.00-5.40); Red Cell Distribution Width 14 % (10.5-15); White Blood Count 19.9 10^3/ul (3.5-10.8)
[2018-09-10 09:05] LABS: Albumin 3.9 g/dL (3.2-5.2); BUN/Creatinine Ratio 17.3 (8-20); Calcium 9.2 mg/dL (8.6-10.3); EGFR Non-African American 78.8 (>60); Magnesium 1.7 mg/dL (1.9-2.7); Potassium 4.2 mmol/L (3.5-5.0); Total Bilirubin 0.3 mg/dL (0.2-1.0); Total Protein 5.9 g/dL (6.4-8.9)
[2018-09-10 09:18] LABS: ABS Basophils 0 10^3/ul (0-0.2); ABS Eosinophils 0 10^3/ul (0-0.6); ABS Lymphocytes 0.5 10^3/ul (1.0-4.8); ABS Monocytes 0.5 10^3/ul (0-0.8); ABS Neutrophils 18.9 10^3/ul (1.5-7.7); ABS Nucleated RBC 0 10^3/ul; Eosinophil % 0 %; Lymphocyte % 2.5 %; Nucleated Red Blood Cells % 0.1
[2018-09-10] MEDS: Magnesium Oxide TAB* 400 MG PO SCH ×2 (09:58→21:20)
[2018-09-10] MEDS: Omeprazole CAP* 20 MG PO SCH (09:58)
[2018-09-10] MEDS: Rivaroxaban TAB(*) 20 MG TAB PO SCH (09:58)
[2018-09-10] MEDS: Metoprolol Succinate XL TAB* 100 MG PO SCH ×3 (09:58→21:19)
[2018-09-10] MEDS: Amiodarone TAB* 200 MG PO SCH (09:58)
[2018-09-10] MEDS: methylPREDNISolone SOD 40 MG* 1 ML VIAL IV SCH ×2 (09:59→21:19)
[2018-09-10] MEDS ORDERED: LORazepam INJ* 2 MG/ML 1 ML VIAL IV PUSH ONE (11:05)
--- NOTE | 2018-09-10 18:36 | PN ---
Subjective Date of Service: 09/10/18 Interval History: Received call this morning for RN that patient was ambulating the unit and suddenly became lightheaded. Following lightheadedness he started to breath rapidly and have chest pain. On assessment patient patient resting in bed with breathing treatment in place, ekg underway, and staff at bedside. He reported sob and cp was improving. VSS. BG wnl. Later on reassessment patient reports he is cp free and no longer feels more sob than normal. O2 in place. 12 point review of system completed and all others negative. Objective Active Medications: Acetaminophen (Tylenol Tab*) 650 mg PO Q4H PRN PRN Reason: FEVER/PAIN Al Hydrox/Mg Hydrox/Simethicone (Maalox Plus*) 30 ml PO Q6H PRN PRN Reason: INDIGESTION Albuterol/Ipratropium (Duoneb (Albuterol 2.5 Mg/Ipratropium 0.5 Mg)) 1 neb INH Q4H PRN PRN Reason: SOB/WHEEZING Last Admin: 09/10/18 02:04 Dose: 1 neb Albuterol/Ipratropium (Duoneb (Albuterol 2.5 Mg/Ipratropium 0.5 Mg)) 1 neb INH [id number] AWAKE [facility] Last Admin: 09/10/18 10:59 Dose: 1 neb Alprazolam (Xanax Tab*) 0.25 mg PO Q8H PRN PRN Reason: ANXIETY Last Admin: 09/08/18 19:09 Dose: 0.25 mg Amiodarone HCl (Cordarone Tab*) 200 mg PO DAILY [facility] Last Admin: 09/10/18 09:58 Dose: 200 mg Diltiazem HCl (Cardizem Tab*) 30 mg PO BID PRN PRN Reason: TACHYCARDIA Levalbuterol HCl (Xopenex 1.25 Mg/0.5 Ml Neb.Leona*) 1.25 mg INH Q2HR PRN PRN Reason: SOB/WHEEZING Last Admin: 09/08/18 01:59 Dose: 1.25 mg Magnesium Oxide (Magox 400 Tab*) 400 mg PO BID [facility] Last Admin: 09/10/18 09:58 Dose: 400 mg Methylprednisolone Sodium Succinate (Solu-Medrol 40 Mg) 40 mg IV Q12H [facility] Last Admin: 09/10/18 09:59 Dose: 40 mg Metoprolol Succinate (Toprol Xl Tab*) 100 mg PO TID [facility] Last Admin: 09/10/18 14:50 Dose: 100 mg Mometasone Furoate/Formoterol Fumar (Dulera 200/5 Mdi*) 2 puff INH BID [facility] Last Admin: 09/10/18 07:50 Dose: 2 puff Omeprazole (Prilosec Cap*) 20 mg PO DAILY@0730 [facility] Last Admin: 09/10/18 09:58 Dose: 20 mg Rivaroxaban (Xarelto(*)) 20 mg PO DAILY [facility] Last Admin: 09/10/18 09:58 Dose: 20 mg Sucralfate (Carafate*) 1 gm PO 0630,1100,1600,2100 [facility] Last Admin: 09/10/18 14:50 Dose: 1 gm Umeclidinium [place] (Incruse Ellipta Mdi (Nf)) 1 inh INH DAILY [facility] Last Admin: 09/10/18 07:59 Dose: Not Given Vital Signs - 8 hr 09/10/18 09/10/18 09/10/18 10:47 10:59 11:15 Temperature 96.6 F Pulse Rate 86 68 Respiratory 30 28 Rate Blood Pressure 134/73 (mmHg) O2 Sat by Pulse 96 Oximetry 09/10/18 09/10/18 09/10/18 14:07 14:50 17:14 Temperature 97.7 F 97.2 F Pulse Rate 76 59 Respiratory 24 20 20 Rate Blood Pressure 114/71 129/58 (mmHg) O2 Sat by Pulse 99 100 Oximetry Oxygen Devices in Use Now: Nasal Cannula Appearance: Chronically ill. Eyes: No Scleral Icterus, PERRLA Ears/Nose/Mouth/Throat: Clear Oropharnyx, Mucous Membranes Moist Neck: NL Appearance and Movements; NL JVP Respiratory: - - Mild dyspnea noted. Sporadic rhonchi and wheezing heard throughout with decrease in aeration also. Cardiovascular: NL Sounds; No Murmurs; No JVD, RRR, - - Mild bilateral LE edema Abdominal: NL Sounds; No Tenderness; No Distention Lymphatic: No Cervical Adenopathy Extremities: No Clubbing, Cyanosis Skin: No Rash or Ulcers Neurological: Alert and Oriented x 3 Nutrition: Taking PO's Result Diagrams: 09/10/18 08:37 09/10/18 08:37 Additional Lab and Data: Laboratory Results - last 24 hr 09/10/18 09/10/18 09/10/18 08:37 08:37 10:50 WBC 19.9 H RBC 3.39 L Hgb 11.3 L Hct 34 L MCV 100 H MCH 33 H MCHC 33 RDW 14 Plt Count 187 MPV 7.4 Neut % (Auto) 95.0 Lymph % (Auto) 2.5 Treasure % (Auto) 2.4 Eos % (Auto) 0 Baso % (Auto) 0.1 Absolute Neuts (auto) 18.9 H Absolute Lymphs (auto) 0.5 L Absolute Monos (auto) 0.5 Absolute Eos (auto) 0 Absolute Basos (auto) 0 Absolute Nucleated RBC 0 Nucleated RBC % 0.1 Patient Temperature ABG pH ABG pH (Temp Correct) ABG pCO2 ABG pCO2 (Temp Corrct ABG pO2 ABG pO2 (Temp Correct ABG HCO3 ABG O2 Saturation ABG Base Excess Respiration Rate O2 Delivery Device Ventilator Type Vent Mode FiO2 Inspiratory Time PEEP Pressure Support Pressure Control EPAP IPAP BiPAP Sodium 135 Potassium 4.2 Chloride 102 Carbon Dioxide 28 Anion Gap 5 BUN 17 Creatinine 0.98 Est GFR ( Amer) 95.4 Est GFR (Non-Af Amer) 78.8 BUN/Creatinine Ratio 17.3 Glucose 157 H POC Glucose (mg/dL) 151 H Calcium 9.2 Magnesium 1.7 L Total Bilirubin 0.30 AST 37 ALT 43 Alkaline Phosphatase 64 Troponin I Cancelled Total Protein 5.9 L Albumin 3.9 Globulin 2.0 Albumin/Globulin Ratio 2.0 09/10/18 09/10/18 09/10/18 11:09 11:30 15:10 WBC RBC Hgb Hct MCV MCH MCHC RDW Plt Count MPV Neut % (Auto) Lymph % (Auto) Treasure % (Auto) Eos % (Auto) Baso % (Auto) Absolute Neuts (auto) Absolute Lymphs (auto) Absolute Monos (auto) Absolute Eos (auto) Absolute Basos (auto) Absolute Nucleated RBC Nucleated RBC % Patient Temperature Not Reportable ABG pH 7.42 ABG pH (Temp Correct) Not Reportable ABG pCO2 42 ABG pCO2 (Temp Corrct Not Reportable ABG pO2 102 H ABG pO2 (Temp Correct Not Reportable ABG HCO3 26.8 ABG O2 Saturation 98.9 H ABG Base Excess 2.4 H Respiration Rate Not Reportable O2 Delivery Device n/c Ventilator Type Not Reportable Vent Mode Not Reportable FiO2 28 Inspiratory Time Not Reportable PEEP Not Reportable Pressure Support Not Reportable Pressure Control Not Reportable EPAP Not Reportable IPAP Not Reportable BiPAP Not Reportable Sodium Potassium Chloride Carbon Dioxide Anion Gap BUN Creatinine Est GFR ( Amer) Est GFR (Non-Af Amer) BUN/Creatinine Ratio Glucose POC Glucose (mg/dL) Calcium Magnesium Total Bilirubin AST ALT Alkaline Phosphatase Troponin I 0.04 H* 0.03 Total Protein Albumin Globulin Albumin/Globulin Ratio 09/10/18 16:58 WBC RBC Hgb Hct MCV MCH MCHC RDW Plt Count MPV Neut % (Auto) Lymph % (Auto) Treasure % (Auto) Eos % (Auto) Baso % (Auto) Absolute Neuts (auto) Absolute Lymphs (auto) Absolute Monos (auto) Absolute Eos (auto) Absolute Basos (auto) Absolute Nucleated RBC Nucleated RBC % Patient Temperature ABG pH ABG pH (Temp Correct) ABG pCO2 ABG pCO2 (Temp Corrct ABG pO2 ABG pO2 (Temp Correct ABG HCO3 ABG O2 Saturation ABG Base Excess Respiration Rate O2 Delivery Device Ventilator Type Vent Mode FiO2 Inspiratory Time PEEP Pressure Support Pressure Control EPAP IPAP BiPAP Sodium Potassium Chloride Carbon Dioxide Anion Gap BUN Creatinine Est GFR ( Amer) Est GFR (Non-Af Amer) BUN/Creatinine Ratio Glucose POC Glucose (mg/dL) Calcium Magnesium Total Bilirubin AST ALT Alkaline Phosphatase Troponin I 0.04 H* Total Protein Albumin Globulin Albumin/Globulin Ratio Assess/Plan/Problems-Billing Assessment: This is a 57 year old man with history of afib/flutter s/p recent ablation (the 2nd one this year) who presented with lightheadedness and palpitations and was found to be in atrial flutter, now with respiratory failure and a copd exacerbation. - Patient Problems (1) Acute and chronic respiratory failure with hypoxia Comment: - Due to COPD exacerbation - Was in ICU on vapotherm, weaned from vapotherm, transferred to [facility], and improving slowly - Seen by Dr Franco today. We appreciate her assistance. - Dr Franco recommended antibiotics as patient was recently hospitalized on multiple occasions. I have reviewed his history and he has been on multiple antibiotics in the last 3 to 6 months, therefore, Cefepime and Doxy started. (2) Atrial flutter Comment: - Now controlled in NSR 60s-70s - Complicated course with 2 ablations this year. Per Dr. Garcia's recommends re- evaluation by [employer] machine accountant at [place] to consider ablation of the AV node and permanent pacing. not available at this facility, will need to follow up there. - Anticoagulated with xarelto (3) COPD exacerbation Current Visit: No Status: Acute Code(s): J44.1 - CHRONIC OBSTRUCTIVE PULMONARY DISEASE W (ACUTE) EXACERBATION SNOMED Code(s): 118629529 Comment: - Continue xopenex, duonebs, and solumedrol - Will add abx as recommended - Decrease Solumedrol dosing as patient improves her Joan (4) Electrolyte abnormality Comment: - Mag low at 1.7 - Replacement provided. - Recheck tomorrow (5) DVT prophylaxis Comment: - Xarelto Status and Disposition: Inpatient. Attending: Eliza Kruger
[2018-09-10] MEDS ORDERED: Magnesium Sulfate 2 GM IV* 2 GM/50 ML BAG IVPB ONE (18:38)
--- NOTE | 2018-09-10 18:56 | CONS ---
PULMONARY CONSULTATION REPORT: DATE OF CONSULT: 09/10/18 CONSULTATION REQUESTED BY: Dr. Anita Galdamez. REASON FOR CONSULTATION: Evaluation of shortness of breath. HISTORY OF PRESENT ILLNESS: The patient is a 57-year-old male with history of severe COPD, known to me from prior outpatient evaluation. The patient also has history of atrial fibrillation with recurrence and rapid ventricular rate recently. He presented to the hospital on 09/07/18 for evaluation of lightheadedness and palpitations. The patient was noted to be in AFib with rate of 151 beats per minute and systolic blood pressure in 80s. The patient was admitted for management of atrial fibrillation. He had rate controlled with medications. His hospital course was complicated by acute COPD exacerbation and hypoxemic respiratory failure that has worsened. The patient was transferred to ICU and was managed with high flow O2. He subsequently improved and was transferred to the floor. The patient seen and examined at bedside. The patient continues to have significant dyspnea on exertion. He does get significantly winded with minimal exertion. His heart rate has been better controlled currently. The patient was initiated on Solu-Medrol for acute COPD exacerbation. No antibiotics were initiated. He has been having issues with recurrent AFibs recently requiring hospitalizations and ablation procedures. He also had a pacemaker placed. PAST MEDICAL HISTORY: 1. Atrial flutter. 2. COPD. 3. Hypoxemic respiratory failure, on O2, has not been very compliant. 4. Hypertension. 5. History of ulcerative colitis status post colostomy. 6. Obstructive sleep apnea, on CPAP. 7. Sick sinus syndrome with pacemaker placement. PAST SURGICAL HISTORY: Colostomy for ulcerative colitis and ablations for pacemaker. MEDICATIONS AT HOME: 1. Amiodarone. 2. Diltiazem. 3. Toprol-XL. 4. Protonix. 5. Xarelto. 6. Torsemide. 7. Incruse. SOCIAL HISTORY: Former smoker, quit 2 years ago. Also alcohol intake, quit drinking 3 weeks ago. Prior to that, he was drinking 2 alcoholic beverages per day. No drug abuse. REVIEW OF SYSTEMS: All 14 systems reviewed and as per HPI. PHYSICAL EXAMINATION: The patient sitting up in bed, in no apparent distress, would see pursed lip breathing at times while talking. Vital Signs: Temperature 97.7, pulse 76 beats per minute, respiratory rate 20 per minute, O2 sat 99% on 2 L, blood pressure 114/71. HEENT: Pupils are equal and reactive to light. Mucous membranes moist. Lungs: Diminished air entry bilaterally. No scattered wheeze present. Cardiovascular: S1, S2 present, regular. No murmurs, gallops, or rubs. Abdomen: Obese. Bowel sounds present. Nontender, nondistended. Extremities: Normal range of motion. No edema. Skin: No rash or bruises. DIAGNOSTIC STUDIES/LAB DATA: WBC count 19.9, hemoglobin 11.3, hematocrit 34, platelet count 187 and blood gas analysis on 09/10/18 showed evidence of compensated respiratory acidosis with metabolic compensation, pO2 was 102 while on FiO2 of 28%. Sodium 135, potassium 4.2, chloride 102, bicarb 28, BUN 17, creatinine 0.98. Troponins elevated, trending down. Chest x-ray performed on 09/07/18 was personally reviewed by me. No acute airspace opacities noted. Evidence of hyperventilation consistent with COPD was noted. The patient had CTA a year ago, which showed evidence of emphysema with no filling defects. No suspicious nodules or masses noted. IMPRESSION AND RECOMMENDATIONS: 57-year-old male with severe chronic obstructive pulmonary disease, also hypoxemia with exertion with recurrent atrial fibrillation episodes in spite of ablation. 1. Acute chronic obstructive pulmonary disease exacerbation, improving. 2. Atrial fibrillation/atrial flutter, currently rate controlled. 3. Acute on chronic hypoxemic respiratory failure. 4. The patient on Solu-Medrol and nebulizers for acute chronic obstructive pulmonary disease exacerbation. He is going to get on 40 mg of q.12 Solu- Medrol. Wheezing is improved, can start tapering dose steroids. Would recommend starting an antibiotic given acute chronic obstructive pulmonary disease exacerbation. The patient with cardiac issues with recurrent atrial fibrillation episodes. He is on amiodarone for rate control. He is to have another ablation as outpatient. 5. He has hypoxemia, has oxygen at home, not very compliant with usage. 6. Consequences of hypoxemia were discussed in detail with the patient. 7. Last PFTs from April of this year showed very severe chronic obstructive pulmonary disease with FEV1 of 25% predicted. 8. He would benefit from lung transplant evaluation, which was discussed with the patient. 9. Would be able to refer for lung transplantation versus lung volume reduction surgery once cardiac issue has been optimally addressed. 10. The patient's questions are all answered to satisfaction. Thank you for allowing me to participate in the care of the patient. Will follow up with you. [id number]/[facility] #: [id number] ELIUD
[2018-09-10] MEDS ORDERED: DOXYcycline IV* 100 MG in NS 0.9% 250 ML* 250 ML IVPB SCH (21:00)
[2018-09-10] MEDS: ALPRAZolam TAB* 0.25 MG PO PRN (21:19)
[2018-09-10] MEDS: Cefepime 1 GM in Dextrose(*) 1 GM/50 ML BAG IV SCH (22:50)
[2018-09-10] MEDS: DOXYcycline IV* 100 MG in NS 0.9% 250 ML* 250 ML IVPB SCH (23:47)
[2018-09-11] MEDS: Albuterol/Ipratropium NEB.SOL* Albuterol 2.5 MG/Ipratropium 0.5 MG 3 ML INH SCH ×4 (01:34→18:19)
[2018-09-11 05:44] LABS: Hematocrit 32 % (42-52); Hemoglobin 10.7 g/dl (14.0-18.0); Mean Corpuscular HGB Conc 34 g/dl (31-36); Mean Corpuscular Hemoglobin 34 pg (27-31); Mean Corpuscular Volume 99 fL (80-94); Mean Platelet Volume 7.7 fL (7.4-10.4); Platelet Count 181 10^3/ul (150-450); Red Blood Count 3.19 10^6/ul (4.00-5.40); Red Cell Distribution Width 14 % (10.5-15)
[2018-09-11 05:55] LABS: Albumin 3.6 g/dL (3.2-5.2); Albumin/Globulin Ratio 1.9 (1-3); BUN/Creatinine Ratio 15.5 (8-20); Calcium 8.8 mg/dL (8.6-10.3); Globulin 1.9 g/dL (2-4); Potassium 4.5 mmol/L (3.5-5.0); Total Bilirubin 0.3 mg/dL (0.2-1.0); Total Protein 5.5 g/dL (6.4-8.9)
[2018-09-11] MEDS: Sucralfate TAB* 1 GM PO SCH ×4 (05:59→23:44)
[2018-09-11 06:09] LABS: ABS Basophils 0 10^3/ul (0-0.2); ABS Eosinophils 0 10^3/ul (0-0.6); ABS Lymphocytes 0.5 10^3/ul (1.0-4.8); ABS Monocytes 0.8 10^3/ul (0-0.8); ABS Neutrophils 19.7 10^3/ul (1.5-7.7); ABS Nucleated RBC 0 10^3/ul; Eosinophil % 0 %; Lymphocyte % 2.4 %; Nucleated Red Blood Cells % 0.1
[2018-09-11] MEDS: Mometasone/Formoter 200/5 MDI INH SCH ×2 (07:43→19:26)
[2018-09-11] MEDS: Umeclidinium 62.5 MDI(NF) MDI INH SCH (07:50)
[2018-09-11] MEDS: Amiodarone TAB* 200 MG PO SCH (08:50)
[2018-09-11] MEDS: Magnesium Oxide TAB* 400 MG PO SCH ×2 (08:50→20:57)
[2018-09-11] MEDS: Rivaroxaban TAB(*) 20 MG TAB PO SCH (08:50)
[2018-09-11] MEDS: Metoprolol Succinate XL TAB* 100 MG PO SCH ×3 (08:50→20:58)
[2018-09-11] MEDS: Omeprazole CAP* 20 MG PO SCH (08:50)
[2018-09-11] MEDS: Cefepime 1 GM in Dextrose(*) 1 GM/50 ML BAG IV SCH ×2 (08:51→20:59)
[2018-09-11] MEDS: methylPREDNISolone SOD 40 MG* 1 ML VIAL IV SCH ×2 (08:51→20:59)
[2018-09-11] MEDS: DOXYcycline IV* 100 MG in NS 0.9% 250 ML* 250 ML IVPB SCH ×2 (11:13→23:46)
--- NOTE | 2018-09-11 12:20 | PN ---
Subjective Date of Service: 09/11/18 Interval History: Patient reports he is feeling better "slowly everyday", he continues to have "episodes" of feeling sob and wheezing which takes several minutes to resolve frequently requiring a neb treatment. Today he had an episode in which he reported difficulty breathing, O2 sat was checked and was wnls, he was found to be very dyspniec and anxious - morphine was given with good effect. He denies sputum production. No fevers or chills. Is worried about going home and having 17 steps - he is currently working with case checker to get into a new apartment Objective Active Medications: Acetaminophen (Tylenol Tab*) 650 mg PO Q4H PRN PRN Reason: FEVER/PAIN Al Hydrox/Mg Hydrox/Simethicone (Maalox Plus*) 30 ml PO Q6H PRN PRN Reason: INDIGESTION Albuterol/Ipratropium (Duoneb (Albuterol 2.5 Mg/Ipratropium 0.5 Mg)) 1 neb INH Q4H PRN PRN Reason: SOB/WHEEZING Last Admin: 09/10/18 02:04 Dose: 1 neb Albuterol/Ipratropium (Duoneb (Albuterol 2.5 Mg/Ipratropium 0.5 Mg)) 1 neb INH [id number] AWAKE [facility] Last Admin: 09/11/18 07:43 Dose: 1 neb Alprazolam (Xanax Tab*) 0.25 mg PO Q8H PRN PRN Reason: ANXIETY Last Admin: 09/10/18 21:19 Dose: 0.25 mg Amiodarone HCl (Cordarone Tab*) 200 mg PO DAILY [facility] Last Admin: 09/11/18 08:50 Dose: 200 mg Diltiazem HCl (Cardizem Tab*) 30 mg PO BID PRN PRN Reason: TACHYCARDIA Cefepime HCl (Maxipime 1 Gm In Dextrose Duplex (*)) 1 gm in 50 mls @ 100 mls/ hr IV Q12H [facility] Last Admin: 09/11/18 08:51 Dose: 100 mls/hr Doxycycline Hyclate 100 mg/ (Sodium Chloride) 250 mls @ 250 mls/hr IVPB 1130, 2330 [facility] Last Admin: 09/11/18 11:13 Dose: 250 mls/hr Levalbuterol HCl (Xopenex 1.25 Mg/0.5 Ml Neb.Leona*) 1.25 mg INH Q2HR PRN PRN Reason: SOB/WHEEZING Last Admin: 09/08/18 01:59 Dose: 1.25 mg Magnesium Oxide (Magox 400 Tab*) 400 mg PO BID [facility] Last Admin: 09/11/18 08:50 Dose: 400 mg Methylprednisolone Sodium Succinate (Solu-Medrol 40 Mg) 40 mg IV Q12H [facility] Last Admin: 09/11/18 08:51 Dose: 40 mg Metoprolol Succinate (Toprol Xl Tab*) 100 mg PO TID [facility] Last Admin: 09/11/18 08:50 Dose: 100 mg Mometasone Furoate/Formoterol Fumar (Dulera 200/5 Mdi*) 2 puff INH BID [facility] Last Admin: 09/11/18 07:43 Dose: 2 puff Omeprazole (Prilosec Cap*) 20 mg PO DAILY@0730 [facility] Last Admin: 09/11/18 08:50 Dose: 20 mg Rivaroxaban (Xarelto(*)) 20 mg PO DAILY [facility] Last Admin: 09/11/18 08:50 Dose: 20 mg Sucralfate (Carafate*) 1 gm PO 0630,1100,1600,2100 [facility] Last Admin: 09/11/18 11:13 Dose: 1 gm Umeclidinium [place] (Incruse Ellipta Mdi (Nf)) 1 inh INH DAILY [facility] Last Admin: 09/11/18 07:50 Dose: Not Given Vital Signs - 8 hr 09/11/18 09/11/18 09/11/18 07:44 08:15 09:04 Temperature 97.1 F Pulse Rate 66 82 Respiratory 20 24 22 Rate Blood Pressure 140/93 (mmHg) O2 Sat by Pulse 98 100 Oximetry Oxygen Devices in Use Now: Nasal Cannula Appearance: A+Ox3 sitting on the side of the bed slightly dyspneic Eyes: No Scleral Icterus, PERRLA Ears/Nose/Mouth/Throat: NL Teeth, Lips, Gums, Mucous Membranes Moist Neck: NL Appearance and Movements; NL JVP Respiratory: Symmetrical Chest Expansion and Respiratory Effort, - - diminished throughout Cardiovascular: NL Sounds; No Murmurs; No JVD, RRR, No Edema Abdominal: NL Sounds; No Tenderness; No Distention Extremities: No Edema, No Clubbing, Cyanosis Skin: No Rash or Ulcers, No Nodules or Sclerosis Neurological: Alert and Oriented x 3, NL Sensation, NL Gait, NL Muscle Strength and Tone Lines/Tubes/Other Access: Clean, Dry and Intact Peripheral IV Nutrition: Taking PO's Result Diagrams: 09/11/18 05:15 09/11/18 05:15 Microbiology and Other Data: Microbiology 09/10/18 23:07 Legionella Urinary Antigen - Final Urine Negative Legionella Antigen Streptococcus pneumoniae Ag Screen - Final Negative S. pneumo Antigen Assess/Plan/Problems-Billing Assessment: This is a 57 year old man with history of afib/flutter s/p recent ablation (the 2nd one this year) who presented with lightheadedness and palpitations and was found to be in atrial flutter, now with respiratory failure and a copd exacerbation. - Patient Problems (1) Acute and chronic respiratory failure with hypoxia Comment: - Due to COPD exacerbation - Was in ICU on vapotherm, weaned from vapotherm, transferred to [facility], improving slowly. Pt may benefit from going home with oral morphine - Seen by Maintenance Technician 2Nd Shift, Dr Franco 09/10. Dr Franco recommended antibiotics as patient was recently hospitalized on multiple occasions. Continue Cefepime and Doxy (2) COPD exacerbation Comment: - Improving - Continue xopenex, duonebs, and solumedrol - Continue abx - Taper Solumedrol dosing (3) Atrial flutter Comment: - Now controlled in NSR 60s-70s - Complicated course with 2 ablations this year. Per Dr. Garcia's recommends re- evaluation by [employer]'s foreign trade teacher at [place] to consider ablation of the AV node and permanent pacing. not available at this facility, will need to follow up there. - Anticoagulated with xarelto (4) Electrolyte abnormality Comment: - resolved with replacement (5) DVT prophylaxis Comment: - Xarelto Status and Disposition: Inpatient with hypoxic respiratory failure
[2018-09-11] MEDS ORDERED: Morphine VIAL* 4 MG/ML VIAL (1 ml vial) IV ONE (13:45)
[2018-09-11] MEDS: ALPRAZolam TAB* 0.25 MG PO PRN ×2 (13:55→22:13)
[2018-09-11] MEDS: Morphine VIAL* 4 MG/ML VIAL (1 ml vial) IV PRN (18:21)
[2018-09-11] MEDS: Albuterol/Ipratropium NEB.SOL* Albuterol 2.5 MG/Ipratropium 0.5 MG 3 ML INH PRN (23:10)
[2018-09-12] MEDS: Albuterol/Ipratropium NEB.SOL* Albuterol 2.5 MG/Ipratropium 0.5 MG 3 ML INH SCH ×5 (02:23→22:50)
[2018-09-12] MEDS: Morphine VIAL* 4 MG/ML VIAL (1 ml vial) IV PRN (04:42)
[2018-09-12] MEDS: Levalbuterol 1.25MG/0.5ML NEB INH PRN (05:00)
[2018-09-12 05:57] LABS: Hematocrit 32 % (42-52); Hemoglobin 10.6 g/dl (14.0-18.0); Mean Corpuscular HGB Conc 33 g/dl (31-36); Mean Corpuscular Hemoglobin 33 pg (27-31); Mean Corpuscular Volume 99 fL (80-94); Mean Platelet Volume 7.5 fL (7.4-10.4); Platelet Count 174 10^3/ul (150-450); Red Blood Count 3.19 10^6/ul (4.00-5.40); Red Cell Distribution Width 14 % (10.5-15); White Blood Count 23.2 10^3/ul (3.5-10.8)
[2018-09-12 06:12] LABS: BUN/Creatinine Ratio 18.8 (8-20); Calcium 9.1 mg/dL (8.6-10.3); EGFR Non-African American 76.1 (>60); Potassium 4.6 mmol/L (3.5-5.0)
[2018-09-12 06:19] LABS: ABS Basophils 0 10^3/ul (0-0.2); ABS Eosinophils 0 10^3/ul (0-0.6); ABS Lymphocytes 0.6 10^3/ul (1.0-4.8); ABS Monocytes 1.4 10^3/ul (0-0.8); ABS Neutrophils 21.1 10^3/ul (1.5-7.7); ABS Nucleated RBC 0 10^3/ul; Eosinophil % 0 %; Lymphocyte % 2.5 %; Nucleated Red Blood Cells % 0.1
[2018-09-12] MEDS: Sucralfate TAB* 1 GM PO SCH ×4 (07:13→20:21)
[2018-09-12] MEDS: Mometasone/Formoter 200/5 MDI INH SCH ×2 (07:15→19:54)
[2018-09-12] MEDS: Umeclidinium 62.5 MDI(NF) MDI INH SCH (07:23)
[2018-09-12] MEDS: Cefepime 1 GM in Dextrose(*) 1 GM/50 ML BAG IV SCH ×2 (08:26→20:11)
[2018-09-12] MEDS: Omeprazole CAP* 20 MG PO SCH (08:27)
[2018-09-12] MEDS: Metoprolol Succinate XL TAB* 100 MG PO SCH ×3 (08:27→20:10)
[2018-09-12] MEDS: ALPRAZolam TAB* 0.25 MG PO PRN ×2 (08:28→22:59)
[2018-09-12] MEDS: Magnesium Oxide TAB* 400 MG PO SCH ×2 (08:28→20:10)
[2018-09-12] MEDS: Amiodarone TAB* 200 MG PO SCH (08:28)
[2018-09-12] MEDS: Rivaroxaban TAB(*) 20 MG TAB PO SCH (08:28)
--- NOTE | 2018-09-12 08:52 | PN ---
Subjective Date of Service: 09/12/18 Interval History: Pt had an acute episode of wheezing and SOB this am - he reports now that he was "moving too fast". He feels that the morphine is helping. Discussed that he may benefit from going home on oral morphine and he agrees this may help his breathing/acute episodes. He reports cough. Little sputum production. no fevers/ chills. reports good appetite. no abdominal pain/N/D. Objective Active Medications: Acetaminophen (Tylenol Tab*) 650 mg PO Q4H PRN PRN Reason: FEVER/PAIN Al Hydrox/Mg Hydrox/Simethicone (Maalox Plus*) 30 ml PO Q6H PRN PRN Reason: INDIGESTION Albuterol/Ipratropium (Duoneb (Albuterol 2.5 Mg/Ipratropium 0.5 Mg)) 1 neb INH Q4H PRN PRN Reason: SOB/WHEEZING Last Admin: 09/11/18 23:10 Dose: 1 neb Albuterol/Ipratropium (Duoneb (Albuterol 2.5 Mg/Ipratropium 0.5 Mg)) 1 neb INH [id number] AWAKE [facility] Last Admin: 09/12/18 07:15 Dose: 1 neb Alprazolam (Xanax Tab*) 0.25 mg PO Q8H PRN PRN Reason: ANXIETY Last Admin: 09/12/18 08:28 Dose: 0.25 mg Amiodarone HCl (Cordarone Tab*) 200 mg PO DAILY [facility] Last Admin: 09/12/18 08:28 Dose: 200 mg Diltiazem HCl (Cardizem Tab*) 30 mg PO BID PRN PRN Reason: TACHYCARDIA Cefepime HCl (Maxipime 1 Gm In Dextrose Duplex (*)) 1 gm in 50 mls @ 100 mls/ hr IV Q12H [facility] Last Admin: 09/12/18 08:26 Dose: 100 mls/hr Doxycycline Hyclate 100 mg/ (Sodium Chloride) 250 mls @ 250 mls/hr IVPB 1130, 2330 [facility] Last Admin: 09/11/18 23:46 Dose: 250 mls/hr Levalbuterol HCl (Xopenex 1.25 Mg/0.5 Ml Neb.Leona*) 1.25 mg INH Q2HR PRN PRN Reason: SOB/WHEEZING Last Admin: 09/12/18 05:00 Dose: 1.25 mg Magnesium Oxide (Magox 400 Tab*) 400 mg PO BID [facility] Last Admin: 09/12/18 08:28 Dose: 400 mg Methylprednisolone Sodium Succinate (Solu-Medrol 40 Mg) 30 mg IV Q12H [facility] Last Admin: 09/11/18 20:59 Dose: 30 mg Metoprolol Succinate (Toprol Xl Tab*) 100 mg PO TID [facility] Last Admin: 09/12/18 08:27 Dose: 100 mg Mometasone Furoate/Formoterol Fumar (Dulera 200/5 Mdi*) 2 puff INH BID [facility] Last Admin: 09/12/18 07:15 Dose: 2 puff Morphine Sulfate (Morphine Oral Concentrate*) 5 mg PO Q4H PRN PRN Reason: PAIN Omeprazole (Prilosec Cap*) 20 mg PO DAILY@0730 [facility] Last Admin: 09/12/18 08:27 Dose: 20 mg Rivaroxaban (Xarelto(*)) 20 mg PO DAILY [facility] Last Admin: 09/12/18 08:28 Dose: 20 mg Sucralfate (Carafate*) 1 gm PO 0630,1100,1600,2100 [facility] Last Admin: 09/12/18 07:13 Dose: Not Given Umeclidinium [place] (Incruse Ellipta Mdi (Nf)) 1 inh INH DAILY [facility] Last Admin: 09/12/18 07:23 Dose: Not Given Vital Signs - 8 hr 09/12/18 09/12/18 09/12/18 02:23 03:55 04:42 Temperature 97.8 F Pulse Rate 78 83 Respiratory 20 18 32 Rate Blood Pressure 130/95 (mmHg) O2 Sat by Pulse 100 99 Oximetry 09/12/18 09/12/18 09/12/18 05:01 06:16 07:17 Temperature 97.4 F Pulse Rate 80 82 Respiratory 20 20 20 Rate Blood Pressure 134/85 (mmHg) O2 Sat by Pulse 98 100 Oximetry 09/12/18 09/12/18 09/12/18 07:18 08:00 08:28 Temperature Pulse Rate 84 Respiratory 16 17 22 Rate Blood Pressure (mmHg) O2 Sat by Pulse 100 Oximetry Oxygen Devices in Use Now: Nasal Cannula Result Diagrams: 09/12/18 05:34 09/12/18 05:34 Additional Lab and Data: Laboratory Results - last 24 hr 09/10/18 09/10/18 09/10/18 08:37 08:37 10:50 WBC 19.9 H RBC 3.39 L Hgb 11.3 L Hct 34 L MCV 100 H MCH 33 H MCHC 33 RDW 14 Plt Count 187 MPV 7.4 Neut % (Auto) 95.0 Lymph % (Auto) 2.5 [place] % (Auto) 2.4 Eos % (Auto) 0 Baso % (Auto) 0.1 Absolute Neuts (auto) 18.9 H Absolute Lymphs (auto) 0.5 L Absolute Monos (auto) 0.5 Absolute Eos (auto) 0 Absolute Basos (auto) 0 Absolute Nucleated RBC 0 Nucleated RBC % 0.1 Patient Temperature ABG pH ABG pH (Temp Correct) ABG pCO2 ABG pCO2 (Temp Corrct ABG pO2 ABG pO2 (Temp Correct ABG HCO3 ABG O2 Saturation ABG Base Excess Respiration Rate O2 Delivery Device Ventilator Type Vent Mode FiO2 Inspiratory Time PEEP Pressure Support Pressure Control EPAP IPAP BiPAP Sodium 135 Potassium 4.2 Chloride 102 Carbon Dioxide 28 Anion Gap 5 BUN 17 Creatinine 0.98 Est GFR ( Amer) 95.4 Est GFR (Non-Af Amer) 78.8 BUN/Creatinine Ratio 17.3 Glucose 157 H POC Glucose (mg/dL) 151 H Calcium 9.2 Magnesium 1.7 L Total Bilirubin 0.30 AST 37 ALT 43 Alkaline Phosphatase 64 Troponin I Cancelled Total Protein 5.9 L Albumin 3.9 Globulin 2.0 Albumin/Globulin Ratio 2.0 09/10/18 09/10/18 09/10/18 11:09 11:30 15:10 WBC RBC Hgb Hct MCV MCH MCHC RDW Plt Count MPV Neut % (Auto) Lymph % (Auto) [place] % (Auto) Eos % (Auto) Baso % (Auto) Absolute Neuts (auto) Absolute Lymphs (auto) Absolute Monos (auto) Absolute Eos (auto) Absolute Basos (auto) Absolute Nucleated RBC Nucleated RBC % Patient Temperature Not Reportable ABG pH 7.42 ABG pH (Temp Correct) Not Reportable ABG pCO2 42 ABG pCO2 (Temp Corrct Not Reportable ABG pO2 102 H ABG pO2 (Temp Correct Not Reportable ABG HCO3 26.8 ABG O2 Saturation 98.9 H ABG Base Excess 2.4 H Respiration Rate Not Reportable O2 Delivery Device n/c Ventilator Type Not Reportable Vent Mode Not Reportable FiO2 28 Inspiratory Time Not Reportable PEEP Not Reportable Pressure Support Not Reportable Pressure Control Not Reportable EPAP Not Reportable IPAP Not Reportable BiPAP Not Reportable Sodium Potassium Chloride Carbon Dioxide Anion Gap BUN Creatinine Est GFR ( Amer) Est GFR (Non-Af Amer) BUN/Creatinine Ratio Glucose POC Glucose (mg/dL) Calcium Magnesium Total Bilirubin AST ALT Alkaline Phosphatase Troponin I 0.04 H* 0.03 Total Protein Albumin Globulin Albumin/Globulin Ratio 09/10/18 16:58 WBC RBC Hgb Hct MCV MCH MCHC RDW Plt Count MPV Neut % (Auto) Lymph % (Auto) [place] % (Auto) Eos % (Auto) Baso % (Auto) Absolute Neuts (auto) Absolute Lymphs (auto) Absolute Monos (auto) Absolute Eos (auto) Absolute Basos (auto) Absolute Nucleated RBC Nucleated RBC % Patient Temperature ABG pH ABG pH (Temp Correct) ABG pCO2 ABG pCO2 (Temp Corrct ABG pO2 ABG pO2 (Temp Correct ABG HCO3 ABG O2 Saturation ABG Base Excess Respiration Rate O2 Delivery Device Ventilator Type Vent Mode FiO2 Inspiratory Time PEEP Pressure Support Pressure Control EPAP IPAP BiPAP Sodium Potassium Chloride Carbon Dioxide Anion Gap BUN Creatinine Est GFR ( Amer) Est GFR (Non-Af Amer) BUN/Creatinine Ratio Glucose POC Glucose (mg/dL) Calcium Magnesium Total Bilirubin AST ALT Alkaline Phosphatase Troponin I 0.04 H* Total Protein Albumin Globulin Albumin/Globulin Ratio Microbiology and Other Data: Microbiology 09/10/18 23:07 Legionella Urinary Antigen - Final Urine Negative Legionella Antigen Streptococcus pneumoniae Ag Screen - Final Negative S. pneumo Antigen Assess/Plan/Problems-Billing Assessment: This is a 57 year old man with history of afib/flutter s/p recent ablation (the 2nd one this year) who presented with lightheadedness and palpitations and was found to be in atrial flutter, now with respiratory failure and a copd exacerbation. - Patient Problems (1) Acute and chronic respiratory failure with hypoxia Comment: - Due to COPD exacerbation - Was in ICU on vapotherm, weaned from vapotherm, transferred to [facility], improving slowly. Pt may benefit from going home with oral morphine - Seen by In House Counsel, Dr Franco 09/10 (follows him as outpt). Dr Franco recommended antibiotics as patient was recently hospitalized on multiple occasions. Continue Cefepime and Doxy. Pulm recommends eval for lung transplant - would need cardiac issues resolved first - afib/flutter. - Plan to ambulate and monitor O2 sat w/wo O2 (2) COPD exacerbation Comment: - Improving, slowly - Continue xopenex, duonebs, and solumedrol - Continue abx - Taper Solumedrol dosing - today 30 mg IV Q12 -> tomorrow 20 mg IV Q12 (3) Transaminitis Comment: - mildly elevated. Unclear etiology. repeat in am (4) Atrial flutter Comment: - Now controlled in NSR 60s-70s - Complicated course with 2 ablations this year which were unsuccessful. Per Dr. Garcia's recommends re-evaluation by [facility]'s lieutenant/deputy at [place] to consider ablation of the AV node and permanent pacing. not available at this facility, will need to follow up there - pt is awaiting a folow up appointment - Anticoagulated with xarelto - continue Amiodarone, Metoprolol, cardizem PRN (5) Electrolyte abnormality Comment: - resolved with replacement (6) DVT prophylaxis Comment: - Xarelto Status and Disposition: Inpatient with hypoxic respiratory failure
[2018-09-12] MEDS: methylPREDNISolone SOD 40 MG* 1 ML VIAL IV SCH ×2 (10:23→20:08)
[2018-09-12] MEDS: Morphine ORAL.SOLN 10 mg* 2 MG/ML UDC 5 ml PO PRN ×3 (10:44→19:47)
[2018-09-12] MEDS: DOXYcycline IV* 100 MG in NS 0.9% 250 ML* 250 ML IVPB SCH ×2 (11:27→23:01)
[2018-09-13] MEDS: Albuterol/Ipratropium NEB.SOL* Albuterol 2.5 MG/Ipratropium 0.5 MG 3 ML INH SCH ×4 (03:27→19:09)
[2018-09-13] MEDS: Morphine ORAL.SOLN 10 mg* 2 MG/ML UDC 5 ml PO PRN ×4 (03:27→20:55)
[2018-09-13] MEDS: Sucralfate TAB* 1 GM PO SCH ×4 (05:53→23:25)
[2018-09-13 06:33] LABS: Hematocrit 32 % (42-52); Hemoglobin 10.9 g/dl (14.0-18.0); Mean Corpuscular HGB Conc 34 g/dl (31-36); Mean Corpuscular Hemoglobin 34 pg (27-31); Mean Corpuscular Volume 100 fL (80-94); Mean Platelet Volume 7.4 fL (7.4-10.4); Platelet Count 184 10^3/ul (150-450); Red Cell Distribution Width 14 % (10.5-15); White Blood Count 23.8 10^3/ul (3.5-10.8)
[2018-09-13 06:47] LABS: Albumin 3.5 g/dL (3.2-5.2); Albumin/Globulin Ratio 1.9 (1-3); BUN/Creatinine Ratio 21.7 (8-20); Calcium 9.2 mg/dL (8.6-10.3); Globulin 1.8 g/dL (2-4); Total Bilirubin 0.4 mg/dL (0.2-1.0); Total Protein 5.3 g/dL (6.4-8.9)
[2018-09-13] MEDS: Mometasone/Formoter 200/5 MDI INH SCH ×2 (07:22→19:09)
[2018-09-13] MEDS: Umeclidinium 62.5 MDI(NF) MDI INH SCH (07:24)
[2018-09-13 07:27] LABS: ABS Basophils 0 10^3/ul (0-0.2); ABS Eosinophils 0 10^3/ul (0-0.6); ABS Lymphocytes 0.6 10^3/ul (1.0-4.8); ABS Monocytes 1.9 10^3/ul (0-0.8); ABS Neutrophils 21.3 10^3/ul (1.5-7.7)
[2018-09-13 07:29] LABS: Immature Granulocytes 5 % (0-9); Lymphocytes % 5 %; Metamyelocytes % 1 % (0-2); Monocytes % 6 %; Myelocytes % 4 % (0-1); Neutrophil % 84 %
[2018-09-13 07:30] LABS: Polychromasia 1+
[2018-09-13 07:31] LABS: ABS Neutrophils 21.2 10^3/ul (1.5-7.7)
[2018-09-13] MEDS: Metoprolol Succinate XL TAB* 100 MG PO SCH ×3 (08:45→20:35)
[2018-09-13] MEDS: Magnesium Oxide TAB* 400 MG PO SCH ×2 (08:45→20:43)
[2018-09-13] MEDS: Rivaroxaban TAB(*) 20 MG TAB PO SCH (08:45)
[2018-09-13] MEDS: Amiodarone TAB* 200 MG PO SCH (08:45)
[2018-09-13] MEDS: Omeprazole CAP* 20 MG PO SCH (08:45)
[2018-09-13] MEDS: methylPREDNISolone SOD 40 MG* 1 ML VIAL IV SCH ×2 (08:48→20:35)
[2018-09-13] MEDS: Cefepime 1 GM in Dextrose(*) 1 GM/50 ML BAG IV SCH ×2 (10:37→20:39)
[2018-09-13] MEDS: DOXYcycline IV* 100 MG in NS 0.9% 250 ML* 250 ML IVPB SCH ×2 (11:54→23:20)
--- NOTE | 2018-09-13 13:48 | PN ---
Progress Note - Progress Note Date of Service: 09/13/18 - Pulm f/u note Note: Pt seen and examined at bedside. Pt reports becoming SOB with minimal exertion. Having cough and inability to expectorate secretions. Is in normal sinus rhythm. Active Medications Generic Name Dose Route Start Last Admin Trade Name Freq PRN Reason Stop Dose Admin Acetaminophen 650 mg 09/07/18 12:35 Tylenol Tab* PO Q4H PRN FEVER/PAIN Al Hydrox/Mg Hydrox/Simethicone 30 ml 09/07/18 12:35 Maalox Plus* PO Q6H PRN INDIGESTION Albuterol/Ipratropium 1 neb 09/08/18 01:53 09/11/18 23:10 Duoneb (Albuterol 2.5 Mg/Ipratropium 0.5 Mg) INH 1 neb Q4H PRN Administration SOB/WHEEZING Albuterol/Ipratropium 1 neb 09/13/18 19:00 Duoneb (Albuterol 2.5 Mg/Ipratropium 0.5 Mg) INH [id number] AWAKE [facility] Alprazolam 0.25 mg 09/08/18 07:28 09/12/18 22:59 Xanax Tab* PO 0.25 mg Q8H PRN Administration ANXIETY Amiodarone HCl 200 mg 09/08/18 09:00 09/13/18 08:45 Cordarone Tab* PO 200 mg DAILY [facility] Administration Diltiazem HCl 30 mg 09/07/18 13:15 Cardizem Tab* PO BID PRN TACHYCARDIA Guaifenesin 1,200 mg 09/13/18 21:00 Mucinex* PO BID [facility] Cefepime HCl 1 gm in 50 mls @ 100 mls/hr 09/10/18 21:00 09/13/18 10:37 Maxipime 1 Gm In Dextrose Duplex (*) IV 100 mls/hr Q12H [facility] Administration Doxycycline Hyclate 100 mg/ 250 mls @ 250 mls/hr 09/10/18 23:30 09/13/18 11: 54 Sodium Chloride IVPB 250 mls/hr 1130,2330 [facility] Administration Levalbuterol HCl 1.25 mg 09/08/18 01:52 09/12/18 05:00 Xopenex 1.25 Mg/0.5 Ml Neb.Leona* INH 1.25 mg Q2HR PRN Administration SOB/WHEEZING Magnesium Oxide 400 mg 09/07/18 21:00 09/13/18 08:45 Magox 400 Tab* PO 400 mg BID [facility] Administration Methylprednisolone Sodium Succinate 20 mg 09/13/18 09:00 09/13/18 08:48 Solu-Medrol 40 Mg IV 20 mg Q12H [facility] Administration Metoprolol Succinate 100 mg 09/07/18 14:00 09/13/18 08:45 Toprol Xl Tab* PO 100 mg TID [facility] Administration Mometasone Furoate/Formoterol Fumar 2 puff 09/10/18 09:00 09/13/18 07:22 Dulera 200/5 Mdi* INH 2 puff BID [facility] Administration Morphine Sulfate 5 mg 09/12/18 08:35 09/13/18 08:43 Morphine Oral.Soln 10 Mg* PO 5 mg Q4H PRN Administration PAIN Omeprazole 20 mg 09/08/18 07:30 09/13/18 08:45 Prilosec Cap* PO 20 mg DAILY@0730 [facility] Administration Rivaroxaban 20 mg 09/08/18 09:00 09/13/18 08:45 Xarelto(*) PO 20 mg DAILY [facility] Administration Sucralfate 1 gm 09/08/18 11:00 09/13/18 12:23 Carafate* PO 1 gm 0630,1100,1600,2100 [facility] Administration Umeclidinium [place] 1 inh 09/08/18 09:00 09/13/18 07:24 Incruse Ellipta Mdi (Nf) INH Not Given DAILY [facility] Vital Signs Temp Pulse Resp BP Pulse Ox 98.2 F 78 18 141/89 97 09/13/18 07:21 09/13/18 12:06 09/13/18 12:06 09/13/18 07:21 09/13/18 12:06 O/E: Pt in NAD HEENT: PERRLA, NO JVD Lungs: Diminished air entry b/l, prolonged exp phase CVS: S1, S2+, regular Abd: Soft, BS+ Ext: Normal ROM Skin: No rash Neuro: No focal deficits Laboratory Results - last 24 hr 09/13/18 09/13/18 09/13/18 06:10 06:10 06:10 WBC 23.8 H RBC 3.20 L Hgb 10.9 L Hct 32 L MCV 100 H MCH 34 H MCHC 34 RDW 14 Plt Count 184 MPV 7.4 Neut % (Auto) Not Reportable Lymph % (Auto) Not Reportable [place] % (Auto) Not Reportable Eos % (Auto) Not Reportable Baso % (Auto) Not Reportable Absolute Neuts (auto) 21.3 H Absolute Lymphs (auto) 0.6 L Absolute Monos (auto) 1.9 H Absolute Eos (auto) 0 Absolute Basos (auto) 0 Absolute Nucleated RBC Not Reportable Immature Gran % 5 Neutrophils % 84 Lymphocytes % 5 Monocytes % 6 Metamyelocytes % 1 Myelocytes % 4 H Nucleated RBC % Not Reportable Abs Neuts (Manual) 21.2 H Abs Lymphs (Manual) 1.2 Abs Monocytes (Manual) 1.4 H Normal RBC Morphology Not Reportable Polychromasia 1+ Macrocytosis 1+ Sodium 136 Potassium 5.0 Chloride 100 L Carbon Dioxide 31 Anion Gap 5 BUN 23 Creatinine 1.06 Est GFR ( Amer) 87.1 Est GFR (Non-Af Amer) 72.0 BUN/Creatinine Ratio 21.7 H Glucose 114 H Calcium 9.2 Total Bilirubin 0.40 AST 40 H ALT 64 H Alkaline Phosphatase 57 Total Protein 5.3 L Albumin 3.5 Globulin 1.8 L Albumin/Globulin Ratio 1.9 TSH 1.08 O/E: 57 y o m with h/o severe COPD, A.fib with recurrence a/w SOB, was noted to be in acute COPD exacerbation and A.fib with RVR Pt with slow improvement Saturating well on 2L O2 however having dyspnea with minimal activity. Having trouble expectorating phleghm, will order Mucinex On 20mg IV q 12 Solumedrol, will not taper any further until improvement seen in resp status Pt reports benefit from Morphine, currently receiving 5mg Prn, pt reports that dose was lowered today which didnot help him. I donot see any other dose of Morphine being ordered other than that he received IV Flutter device usage q 4hrs c/w bronchodilators In NSR now, on meds for rate control D/w Lia Maldonado NP
[2018-09-13] MEDS ORDERED: Torsemide TAB* 20 MG PO ONE (14:40)
[2018-09-13] MEDS ORDERED: Morphine VIAL* 4 MG/ML VIAL (1 ml vial) IV PRN (14:42)
--- NOTE | 2018-09-13 14:48 | PN ---
Subjective Date of Service: 09/13/18 Interval History: Pt reports he "feels the same", he feels that he can not cough up any sputum. He reports the oral morphine is not giving him relief and would like to go back to IV while he is still having acute episodes and would like to go back on oral after he has some improvement. He also reports LE swelling worsening last few days in which he usually takes Torsemide prn at home. He is able to walk two loops around the unit with Oxygen. He denies fever/chills. Objective Active Medications: Acetaminophen (Tylenol Tab*) 650 mg PO Q4H PRN PRN Reason: FEVER/PAIN Al Hydrox/Mg Hydrox/Simethicone (Maalox Plus*) 30 ml PO Q6H PRN PRN Reason: INDIGESTION Albuterol/Ipratropium (Duoneb (Albuterol 2.5 Mg/Ipratropium 0.5 Mg)) 1 neb INH Q4H PRN PRN Reason: SOB/WHEEZING Last Admin: 09/11/18 23:10 Dose: 1 neb Albuterol/Ipratropium (Duoneb (Albuterol 2.5 Mg/Ipratropium 0.5 Mg)) 1 neb INH [id number] AWAKE [facility] Alprazolam (Xanax Tab*) 0.25 mg PO Q8H PRN PRN Reason: ANXIETY Last Admin: 09/12/18 22:59 Dose: 0.25 mg Amiodarone HCl (Cordarone Tab*) 200 mg PO DAILY [facility] Last Admin: 09/13/18 08:45 Dose: 200 mg Diltiazem HCl (Cardizem Tab*) 30 mg PO BID PRN PRN Reason: TACHYCARDIA Guaifenesin (Mucinex*) 1,200 mg PO BID [facility] Cefepime HCl (Maxipime 1 Gm In Dextrose Duplex (*)) 1 gm in 50 mls @ 100 mls/ hr IV Q12H [facility] Last Admin: 09/13/18 10:37 Dose: 100 mls/hr Doxycycline Hyclate 100 mg/ (Sodium Chloride) 250 mls @ 250 mls/hr IVPB 1130, 2330 [facility] Last Admin: 09/13/18 11:54 Dose: 250 mls/hr Levalbuterol HCl (Xopenex 1.25 Mg/0.5 Ml Neb.Leona*) 1.25 mg INH Q2HR PRN PRN Reason: SOB/WHEEZING Last Admin: 09/12/18 05:00 Dose: 1.25 mg Magnesium Oxide (Magox 400 Tab*) 400 mg PO BID [facility] Last Admin: 09/13/18 08:45 Dose: 400 mg Methylprednisolone Sodium Succinate (Solu-Medrol 40 Mg) 20 mg IV Q12H [facility] Last Admin: 09/13/18 08:48 Dose: 20 mg Metoprolol Succinate (Toprol Xl Tab*) 100 mg PO TID [facility] Last Admin: 09/13/18 14:17 Dose: 100 mg Mometasone Furoate/Formoterol Fumar (Dulera 200/5 Mdi*) 2 puff INH BID [facility] Last Admin: 09/13/18 07:22 Dose: 2 puff Morphine Sulfate (Morphine Oral.Soln 10 Mg*) 5 mg PO Q4H PRN PRN Reason: PAIN Last Admin: 09/13/18 08:43 Dose: 5 mg Morphine Sulfate (Morphine Inj ((Syringe))*) 2 mg IV Q4H PRN PRN Reason: PAIN - MILD Omeprazole (Prilosec Cap*) 20 mg PO DAILY@0730 [facility] Last Admin: 09/13/18 08:45 Dose: 20 mg Rivaroxaban (Xarelto(*)) 20 mg PO DAILY [facility] Last Admin: 09/13/18 08:45 Dose: 20 mg Sucralfate (Carafate*) 1 gm PO 0630,1100,1600,2100 [facility] Last Admin: 09/13/18 12:23 Dose: 1 gm Torsemide (Demadex*) 20 mg PO DAILY [facility] Stop: 09/15/18 09:01 Umeclidinium [place] (Incruse Ellipta Mdi (Nf)) 1 inh INH DAILY [facility] Last Admin: 09/13/18 07:24 Dose: Not Given Vital Signs - 8 hr 09/13/18 09/13/18 09/13/18 07:21 07:25 08:00 Temperature 98.2 F Pulse Rate 82 78 Respiratory 18 24 18 Rate Blood Pressure 141/89 (mmHg) O2 Sat by Pulse 98 98 Oximetry 09/13/18 09/13/18 09/13/18 08:43 11:07 12:06 Temperature 97.6 F Pulse Rate 81 78 Respiratory 18 16 18 Rate Blood Pressure 149/83 (mmHg) O2 Sat by Pulse 99 97 Oximetry Oxygen Devices in Use Now: Nasal Cannula Appearance: A+Ox3 in NAD Eyes: No Scleral Icterus, PERRLA Ears/Nose/Mouth/Throat: NL Teeth, Lips, Gums, Mucous Membranes Moist Neck: NL Appearance and Movements; NL JVP Respiratory: Symmetrical Chest Expansion and Respiratory Effort, - - diminished throughout Cardiovascular: NL Sounds; No Murmurs; No JVD, RRR, - - 2+ RLE, 1+ IGNACIO Abdominal: NL Sounds; No Tenderness; No Distention, - - obese Extremities: No Clubbing, Cyanosis Skin: No Rash or Ulcers, No Nodules or Sclerosis Neurological: Alert and Oriented x 3, NL Sensation, NL Gait, NL Muscle Strength and Tone Lines/Tubes/Other Access: Clean, Dry and Intact Peripheral IV Nutrition: Taking PO's Result Diagrams: 09/13/18 06:10 09/13/18 06:10 Microbiology and Other Data: Microbiology 09/10/18 23:07 Legionella Urinary Antigen - Final Urine Negative Legionella Antigen Streptococcus pneumoniae Ag Screen - Final Negative S. pneumo Antigen Assess/Plan/Problems-Billing Assessment: This is a 57 year old man with history of afib/flutter s/p recent ablation (the 2nd one this year) who presented with lightheadedness and palpitations and was found to be in atrial flutter, now with respiratory failure and a copd exacerbation. - Patient Problems (1) Acute and chronic respiratory failure with hypoxia Comment: - Due to COPD exacerbation - Was in ICU on vapotherm, weaned from vapotherm, transferred to [facility], improving - slowly. Pt may benefit from going home with oral morphine - Spd Manager following Dr Franco (follows him as outpt). Dr rFanco recommended antibiotics as patient was recently hospitalized on multiple occasions. Continue Cefepime and Doxy. Pulm recommends eval for lung transplant - would need cardiac issues resolved first - afib/flutter. Started Mucinex today - Flutter valve, aggressive pulm tolieting - Pt recently set up with [facility] (2) COPD exacerbation Comment: - Improving, slowly - Continue xopenex, duonebs, and solumedrol - Continue abx - Continue Solumedrol dosing per pulm no further taper at this time - 20 mg IV Q12 (3) Transaminitis Comment: - mildly elevated, noted elevation in the past. Unclear etiology. repeat in am (4) Lower extremity edema Comment: - take prn torsemide at home - restart x 3 days (5) Atrial flutter Comment: - Now controlled in NSR 60s-70s - Complicated course with 2 ablations this year which were unsuccessful. Per Dr. Garcia's recommends re-evaluation by [facility] silverer at [place] to consider ablation of the AV node and permanent pacing. not available at this facility, will need to follow up there - pt is awaiting a folow up appointment - Anticoagulated with xarelto - continue Amiodarone, Metoprolol, cardizem PRN (6) Electrolyte abnormality Comment: - resolved with replacement (7) DVT prophylaxis Comment: - Xarelto Status and Disposition: Inpatient with hypoxic respiratory failure
[2018-09-13] MEDS: guaiFENesin ER TAB 600 MG PO SCH (20:33)
[2018-09-13] MEDS: ALPRAZolam TAB* 0.25 MG PO PRN (23:25)
[2018-09-14] MEDS: Albuterol/Ipratropium NEB.SOL* Albuterol 2.5 MG/Ipratropium 0.5 MG 3 ML INH SCH ×4 (01:13→19:14)
[2018-09-14] MEDS: Morphine ORAL.SOLN 10 mg* 2 MG/ML UDC 5 ml PO PRN ×3 (03:02→21:12)
[2018-09-14] MEDS: Sucralfate TAB* 1 GM PO SCH ×4 (05:30→21:13)
[2018-09-14] MEDS: Acetaminophen TAB* 325 MG PO PRN (05:32)
[2018-09-14 05:43] LABS: Hematocrit 37 % (42-52); Hemoglobin 12.4 g/dl (14.0-18.0); Mean Corpuscular HGB Conc 33 g/dl (31-36); Mean Corpuscular Hemoglobin 33 pg (27-31); Mean Corpuscular Volume 100 fL (80-94); Mean Platelet Volume 7.7 fL (7.4-10.4); Platelet Count 218 10^3/ul (150-450); Red Blood Count 3.75 10^6/ul (4.00-5.40); Red Cell Distribution Width 15 % (10.5-15); White Blood Count 27.4 10^3/ul (3.5-10.8)
[2018-09-14 06:04] LABS: Albumin 4.2 g/dL (3.2-5.2); Calcium 9.8 mg/dL (8.6-10.3); EGFR Non-African American 48.2 (>60); Globulin 2.1 g/dL (2-4); Potassium 4.8 mmol/L (3.5-5.0); Total Bilirubin 0.5 mg/dL (0.2-1.0); Total Protein 6.3 g/dL (6.4-8.9)
[2018-09-14 06:36] LABS: Lymphocytes % 5 %; Metamyelocytes % 4 % (0-2); Monocytes % 6 %; Myelocytes % 5 % (0-1); Neutrophil % 76 %
[2018-09-14 06:40] LABS: Nucleated Red Blood Cells/100 2 (0-0)
[2018-09-14 06:44] LABS: ABS Basophils 0.1 10^3/ul (0-0.2); ABS Eosinophils 0 10^3/ul (0-0.6); ABS Lymphocytes 0.7 10^3/ul (1.0-4.8); ABS Neutrophils 24.6 10^3/ul (1.5-7.7); ABS Nucleated RBC 0.2 10^3/ul
[2018-09-14 07:04] LABS: Immature Granulocytes 13 % (0-9)
[2018-09-14] MEDS: Mometasone/Formoter 200/5 MDI INH SCH ×2 (07:57→19:14)
[2018-09-14] MEDS: Umeclidinium 62.5 MDI(NF) MDI INH SCH (08:01)
--- NOTE | 2018-09-14 09:36 | PN ---
Progress Note - Progress Note Date of Service: 09/14/18 - Pulm f/u Note: Pt seen and examined at bedside. Pt reports feeling better. Was able to ambulate more without much dyspnea. Cough is more productive now. Active Medications Generic Name Dose Route Start Last Admin Trade Name Freq PRN Reason Stop Dose Admin Acetaminophen 650 mg 09/07/18 12:35 09/14/18 05:32 Tylenol Tab* PO 650 mg Q4H PRN Administration FEVER/PAIN Al Hydrox/Mg Hydrox/Simethicone 30 ml 09/07/18 12:35 Maalox Plus* PO Q6H PRN INDIGESTION Albuterol/Ipratropium 1 neb 09/08/18 01:53 09/11/18 23:10 Duoneb (Albuterol 2.5 Mg/Ipratropium 0.5 Mg) INH 1 neb Q4H PRN Administration SOB/WHEEZING Albuterol/Ipratropium 1 neb 09/13/18 19:00 09/14/18 07:55 Duoneb (Albuterol 2.5 Mg/Ipratropium 0.5 Mg) INH 1 neb [id number] AWAKE JUSTIN Administration Alprazolam 0.25 mg 09/08/18 07:28 09/13/18 23:25 Xanax Tab* PO 0.25 mg Q8H PRN Administration ANXIETY Amiodarone HCl 200 mg 09/08/18 09:00 09/13/18 08:45 Cordarone Tab* PO 200 mg DAILY JUSTIN Administration Diltiazem HCl 30 mg 09/07/18 13:15 Cardizem Tab* PO BID PRN TACHYCARDIA Guaifenesin 1,200 mg 09/13/18 21:00 09/13/18 20:33 Mucinex* PO 1,200 mg BID JUSTNI Administration Cefepime HCl 1 gm in 50 mls @ 100 mls/hr 09/10/18 21:00 09/13/18 20:39 Maxipime 1 Gm In Dextrose Duplex (*) IV 100 mls/hr Q12H JUSTIN Administration Doxycycline Hyclate 100 mg/ 250 mls @ 250 mls/hr 09/10/18 23:30 09/13/18 23: 20 Sodium Chloride IVPB 250 mls/hr 1130,2330 JUSTIN Administration Levalbuterol HCl 1.25 mg 09/08/18 01:52 09/12/18 05:00 Xopenex 1.25 Mg/0.5 Ml Neb.Leona* INH 1.25 mg Q2HR PRN Administration SOB/WHEEZING Magnesium Oxide 400 mg 09/07/18 21:00 09/13/18 20:43 Magox 400 Tab* PO 400 mg BID JUSTIN Administration Methylprednisolone Sodium Succinate 30 mg 09/14/18 10:00 Solu-Medrol 40 Mg IV DAILY JUSTIN Metoprolol Succinate 100 mg 09/07/18 14:00 09/13/18 20:35 Toprol Xl Tab* PO 100 mg TID JUSTIN Administration Mometasone Furoate/Formoterol Fumar 2 puff 09/10/18 09:00 09/14/18 07:57 Dulera 200/5 Mdi* INH 2 puff BID JUSTIN Administration Morphine Sulfate 10 mg 09/13/18 14:48 09/14/18 03:02 Morphine Oral.Soln 10 Mg* PO 10 mg Q4H PRN Administration PAIN Morphine Sulfate 2 mg 09/13/18 16:07 Morphine Vial* IV Q4H PRN PAIN - MILD Omeprazole 20 mg 09/08/18 07:30 09/13/18 08:45 Prilosec Cap* PO 20 mg DAILY@0730 JUSTIN Administration Rivaroxaban 20 mg 09/08/18 09:00 09/13/18 08:45 Xarelto(*) PO 20 mg DAILY JUSTIN Administration Sucralfate 1 gm 09/08/18 11:00 09/14/18 05:30 Carafate* PO 1 gm 0630,1100,1600,2100 JUSTIN Administration Torsemide 20 mg 09/14/18 09:00 Demadex* PO 09/15/18 09:01 DAILY JUSTIN Umeclidinium [place] 1 inh 09/08/18 09:00 09/14/18 08:01 Incruse Ellipta Mdi (Nf) INH Not Given DAILY [facility] Vital Signs Temp Pulse Resp BP Pulse Ox 97.5 F 70 16 132/84 96 09/14/18 02:58 09/14/18 07:59 09/14/18 07:59 09/14/18 02:58 09/14/18 07:59 O/E: Pt in NAD HEENT: PERRLA, No JVD Lungs: Diminished air entry b/l, scattered wheeze+ CVS: S1, S2+, regular Abd: Obese, Soft, BS+ Ext: Normal ROM Neuro: No focal deficits Skin: No rash Laboratory Results - last 24 hr 09/14/18 09/14/18 05:14 05:14 WBC 27.4 H RBC 3.75 L Hgb 12.4 L Hct 37 L MCV 100 H MCH 33 H MCHC 33 RDW 15 Plt Count 218 MPV 7.7 Neut % (Auto) Not Reportable Lymph % (Auto) Not Reportable [place] % (Auto) Not Reportable Eos % (Auto) Not Reportable Baso % (Auto) Not Reportable Absolute Neuts (auto) 24.6 H Absolute Lymphs (auto) 0.7 L Absolute Monos (auto) 2.0 H Absolute Eos (auto) 0 Absolute Basos (auto) 0.1 Absolute Nucleated RBC 0.2 Immature Gran % 13 H Neutrophils % 76 Band Neutrophils % 4 Lymphocytes % 5 Monocytes % 6 Metamyelocytes % 4 H Myelocytes % 5 H Nucleated RBC % Not Reportable Nucleated RBCs/100 WBC 2 H Normal RBC Morphology Normal Sodium 134 L Potassium 4.8 Chloride 93 L Carbon Dioxide 33 H Anion Gap 8 BUN 36 H Creatinine 1.50 H Est GFR ( Amer) 58.4 Est GFR (Non-Af Amer) 48.2 BUN/Creatinine Ratio 24.0 H Glucose 111 H Calcium 9.8 Total Bilirubin 0.50 AST 53 H ALT 83 H Alkaline Phosphatase 64 Total Protein 6.3 L Albumin 4.2 Globulin 2.1 Albumin/Globulin Ratio 2.0 O/E: 57 y o m with h/o severe COPD, A.fib with recurrence a/w SOB, was noted to be in acute COPD exacerbation and A.fib with RVR Pt with slow improvement, feels better this am since able to expectorate secretions better Mucinex is helping Saturating well on 2L O2 On 20mg IV q 12 Solumedrol, changed to 30mg daily Morphine has been helpful Flutter device usage q 4hrs c/w bronchodilators On abx In NSR now, on meds for rate control Will order overnight oximetry to qualify pt for BiPAP at d/c
[2018-09-14] MEDS: Omeprazole CAP* 20 MG PO SCH (09:51)
[2018-09-14] MEDS: Metoprolol Succinate XL TAB* 100 MG PO SCH ×3 (09:51→21:14)
[2018-09-14] MEDS: Magnesium Oxide TAB* 400 MG PO SCH ×2 (09:51→21:13)
[2018-09-14] MEDS: Torsemide TAB* 20 MG PO SCH (09:51)
[2018-09-14] MEDS: Rivaroxaban TAB(*) 20 MG TAB PO SCH (09:52)
[2018-09-14] MEDS: Amiodarone TAB* 200 MG PO SCH (09:52)
[2018-09-14] MEDS: guaiFENesin ER TAB 600 MG PO SCH ×2 (09:52→21:14)
[2018-09-14] MEDS: methylPREDNISolone SOD 40 MG* 1 ML VIAL IV SCH ×2 (09:54→11:05)
[2018-09-14] MEDS: Cefepime 1 GM in Dextrose(*) 1 GM/50 ML BAG IV SCH ×2 (10:00→21:14)
--- NOTE | 2018-09-14 10:31 | PN ---
Subjective Date of Service: 09/14/18 Interval History: Patient has more loose cough, breathing has improved a bit. Able to walk to BR, and eating OK. Reports some burning in anterior chest, not substernal, not crushing. He attributes this to recent ablation procedure. Family History: Unchanged from Admission Social History: Unchanged from Admission Past Medical History: Unchanged from Admission Objective Active Medications: Acetaminophen (Tylenol Tab*) 650 mg PO Q4H PRN PRN Reason: FEVER/PAIN Last Admin: 09/14/18 05:32 Dose: 650 mg Al Hydrox/Mg Hydrox/Simethicone (Maalox Plus*) 30 ml PO Q6H PRN PRN Reason: INDIGESTION Albuterol/Ipratropium (Duoneb (Albuterol 2.5 Mg/Ipratropium 0.5 Mg)) 1 neb INH Q4H PRN PRN Reason: SOB/WHEEZING Last Admin: 09/11/18 23:10 Dose: 1 neb Albuterol/Ipratropium (Duoneb (Albuterol 2.5 Mg/Ipratropium 0.5 Mg)) 1 neb INH [id number] AWAKE [facility] Last Admin: 09/14/18 07:55 Dose: 1 neb Alprazolam (Xanax Tab*) 0.25 mg PO Q8H PRN PRN Reason: ANXIETY Last Admin: 09/13/18 23:25 Dose: 0.25 mg Amiodarone HCl (Cordarone Tab*) 200 mg PO DAILY [facility] Last Admin: 09/14/18 09:52 Dose: 200 mg Diltiazem HCl (Cardizem Tab*) 30 mg PO BID PRN PRN Reason: TACHYCARDIA Guaifenesin (Mucinex*) 1,200 mg PO BID [facility] Last Admin: 09/14/18 09:52 Dose: 1,200 mg Cefepime HCl (Maxipime 1 Gm In Dextrose Duplex (*)) 1 gm in 50 mls @ 100 mls/ hr IV Q12H [facility] Last Admin: 09/14/18 10:00 Dose: 100 mls/hr Doxycycline Hyclate 100 mg/ (Sodium Chloride) 250 mls @ 250 mls/hr IVPB 1130, 2330 [facility] Last Admin: 09/13/18 23:20 Dose: 250 mls/hr Levalbuterol HCl (Xopenex 1.25 Mg/0.5 Ml Neb.Leona*) 1.25 mg INH Q2HR PRN PRN Reason: SOB/WHEEZING Last Admin: 09/12/18 05:00 Dose: 1.25 mg Magnesium Oxide (Magox 400 Tab*) 400 mg PO BID [facility] Last Admin: 09/14/18 09:51 Dose: 400 mg Methylprednisolone Sodium Succinate (Solu-Medrol 40 Mg) 30 mg IV DAILY [facility] Last Admin: 09/14/18 09:54 Dose: 30 mg Metoprolol Succinate (Toprol Xl Tab*) 100 mg PO TID [facility] Last Admin: 09/14/18 09:51 Dose: 100 mg Mometasone Furoate/Formoterol Fumar (Dulera 200/5 Mdi*) 2 puff INH BID [facility] Last Admin: 09/14/18 07:57 Dose: 2 puff Morphine Sulfate (Morphine Oral.Soln 10 Mg*) 10 mg PO Q4H PRN PRN Reason: PAIN Last Admin: 09/14/18 10:00 Dose: 10 mg Morphine Sulfate (Morphine Vial*) 2 mg IV Q4H PRN PRN Reason: PAIN - MILD Omeprazole (Prilosec Cap*) 20 mg PO DAILY@0730 [facility] Last Admin: 09/14/18 09:51 Dose: 20 mg Rivaroxaban (Xarelto(*)) 20 mg PO DAILY [facility] Last Admin: 09/14/18 09:52 Dose: 20 mg Sucralfate (Carafate*) 1 gm PO 0630,1100,1600,2100 [facility] Last Admin: 09/14/18 05:30 Dose: 1 gm Torsemide (Demadex*) 20 mg PO DAILY [facility] Stop: 09/15/18 09:01 Last Admin: 09/14/18 09:51 Dose: 20 mg Umeclidinium [place] (Incruse Ellipta Mdi (Nf)) 1 inh INH DAILY [facility] Last Admin: 09/14/18 08:01 Dose: Not Given Vital Signs - 8 hr 09/14/18 09/14/18 09/14/18 02:58 03:02 03:03 Temperature 36.4 C Pulse Rate 63 Respiratory 17 20 20 Rate Blood Pressure 132/84 (mmHg) O2 Sat by Pulse 95 Oximetry 09/14/18 09/14/18 09/14/18 04:22 05:35 07:59 Temperature Pulse Rate 70 Respiratory 20 20 16 Rate Blood Pressure (mmHg) O2 Sat by Pulse 96 Oximetry Oxygen Devices in Use Now: Nasal Cannula Appearance: alert, no distress Ears/Nose/Mouth/Throat: Clear Oropharnyx Neck: Trachea Midline Respiratory: Clear to Auscultation, - - diminished throughout Cardiovascular: NL Sounds; No Murmurs; No JVD, - - 1+ edema RLE Abdominal: NL Sounds; No Tenderness; No Distention Lymphatic: No Cervical Adenopathy Extremities: No Clubbing, Cyanosis Neurological: Alert and Oriented x 3 Lines/Tubes/Other Access: Clean, Dry and Intact Peripheral IV Nutrition: Taking PO's Result Diagrams: 09/14/18 05:14 09/14/18 05:14 Microbiology and Other Data: Microbiology 09/10/18 23:07 Legionella Urinary Antigen - Final Urine Negative Legionella Antigen Streptococcus pneumoniae Ag Screen - Final Negative S. pneumo Antigen Assess/Plan/Problems-Billing Assessment: This is a 57 year old man with history of afib/flutter s/p recent ablation (the 2nd one this year) who presented with lightheadedness and palpitations and was found to be in atrial flutter, now with respiratory failure and a copd exacerbation. - Patient Problems (1) Acute and chronic respiratory failure with hypoxia Current Visit: Yes Status: Acute Priority: High Code(s): J96.21 - ACUTE AND CHRONIC RESPIRATORY FAILURE WITH HYPOXIA SNOMED Code(s): 81852454 Comment: - COPD exacerbation slowly improving - Digital Ad Trafficker following Dr Franco (follows him as outpt). Pulm recommends eval for lung transplant - would need cardiac issues resolved first - afib/ flutter. - Flutter valve, aggressive pulm tolieting - Dr. Franco note today appreciated, will be on lower dose steroids, cefepime/ doxy - may go home with BiPAP (2) Atrial flutter Current Visit: Yes Status: Acute Priority: High Code(s): I48.92 - UNSPECIFIED ATRIAL FLUTTER SNOMED Code(s): 0147160 Comment: - paroxysmal in nature - Now controlled in NSR 60s-70s - Complicated course with 2 ablations this year which were unsuccessful. Per Dr. Garcia's recommends re-evaluation by Ozzie's supervisor capacitor processing at [place] to consider ablation of the AV node and permanent pacing. not available at this facility, will need to follow up there - pt is awaiting a folow up appointment - Anticoagulated with xarelto - continue Amiodarone, Metoprolol, cardizem PRN (3) Lower extremity edema Current Visit: Yes Status: Acute Priority: Low Code(s): R60.0 - LOCALIZED EDEMA SNOMED Code(s): 293646562 Comment: - takes prn torsemide at home - has been restarted (4) DVT prophylaxis Current Visit: Yes Status: Acute Priority: Low Onset Date: 12/26/14 Code (s): EWQ8476 - SNOMED Code(s): 074273556 Comment: - Xarelto Status and Disposition: Inpatient with hypoxic respiratory failure
[2018-09-14] MEDS: DOXYcycline IV* 100 MG in NS 0.9% 250 ML* 250 ML IVPB SCH ×2 (11:48→23:34)
[2018-09-14] MEDS: ALPRAZolam TAB* 0.25 MG PO PRN (14:28)
[2018-09-15] MEDS: Albuterol/Ipratropium NEB.SOL* Albuterol 2.5 MG/Ipratropium 0.5 MG 3 ML INH SCH ×4 (01:03→19:25)
[2018-09-15] MEDS: ALPRAZolam TAB* 0.25 MG PO PRN ×2 (01:20→19:30)
[2018-09-15] MEDS: Morphine VIAL* 4 MG/ML VIAL (1 ml vial) IV PRN (06:43)
[2018-09-15] MEDS: Sucralfate TAB* 1 GM PO SCH ×4 (06:44→20:36)
[2018-09-15] MEDS: Mometasone/Formoter 200/5 MDI INH SCH ×2 (07:56→19:26)
[2018-09-15] MEDS: Umeclidinium 62.5 MDI(NF) MDI INH SCH (08:03)
[2018-09-15] MEDS: Cefepime 1 GM in Dextrose(*) 1 GM/50 ML BAG IV SCH ×2 (09:52→20:37)
[2018-09-15] MEDS: methylPREDNISolone SOD 40 MG* 1 ML VIAL IV SCH (10:04)
[2018-09-15] MEDS: Metoprolol Succinate XL TAB* 100 MG PO SCH ×3 (10:05→20:36)
[2018-09-15] MEDS: guaiFENesin ER TAB 600 MG PO SCH ×2 (10:05→20:36)
[2018-09-15] MEDS: Amiodarone TAB* 200 MG PO SCH (10:05)
[2018-09-15] MEDS: Omeprazole CAP* 20 MG PO SCH (10:05)
[2018-09-15] MEDS: Magnesium Oxide TAB* 400 MG PO SCH ×2 (10:05→20:36)
[2018-09-15] MEDS: Torsemide TAB* 20 MG PO SCH (10:05)
[2018-09-15] MEDS: Rivaroxaban TAB(*) 20 MG TAB PO SCH (10:05)
[2018-09-15] MEDS: Morphine ORAL.SOLN 10 mg* 2 MG/ML UDC 5 ml PO PRN ×2 (11:40→17:12)
[2018-09-15] MEDS: DOXYcycline IV* 100 MG in NS 0.9% 250 ML* 250 ML IVPB SCH ×2 (11:42→22:59)
--- NOTE | 2018-09-15 15:12 | PN ---
Subjective Date of Service: 09/15/18 Interval History: Patient seen and examined. Per RN, having bouts of SVT and intermittent tachycardia. Discussed patient's goals of care, and possibility of seeking lung transplant evaluation, but his tachycardia has been a problem. Patient denies chest pain at present, no fevers or chills, remains with course cough, and oxygen dependent but does feel some improvement in his breathing. Family History: Unchanged from Admission Social History: Unchanged from Admission Past Medical History: Unchanged from Admission Objective Active Medications: Acetaminophen (Tylenol Tab*) 650 mg PO Q4H PRN PRN Reason: FEVER/PAIN Last Admin: 09/14/18 05:32 Dose: 650 mg Al Hydrox/Mg Hydrox/Simethicone (Maalox Plus*) 30 ml PO Q6H PRN PRN Reason: INDIGESTION Albuterol/Ipratropium (Duoneb (Albuterol 2.5 Mg/Ipratropium 0.5 Mg)) 1 neb INH Q4H PRN PRN Reason: SOB/WHEEZING Last Admin: 09/11/18 23:10 Dose: 1 neb Albuterol/Ipratropium (Duoneb (Albuterol 2.5 Mg/Ipratropium 0.5 Mg)) 1 neb INH [id number] AWAKE [facility] Last Admin: 09/15/18 13:48 Dose: 1 neb Amiodarone HCl (Cordarone Tab*) 200 mg PO DAILY [facility] Last Admin: 09/15/18 10:05 Dose: 200 mg Diltiazem HCl (Cardizem Tab*) 30 mg PO BID PRN PRN Reason: TACHYCARDIA Guaifenesin (Mucinex*) 1,200 mg PO BID [facility] Last Admin: 09/15/18 10:05 Dose: 1,200 mg Cefepime HCl (Maxipime 1 Gm In Dextrose Duplex (*)) 1 gm in 50 mls @ 100 mls/ hr IV Q12H [facility] Last Admin: 09/15/18 09:52 Dose: 100 mls/hr Doxycycline Hyclate 100 mg/ (Sodium Chloride) 250 mls @ 250 mls/hr IVPB 1130, 2330 [facility] Last Admin: 09/15/18 11:42 Dose: 250 mls/hr Levalbuterol HCl (Xopenex 1.25 Mg/0.5 Ml Neb.Leona*) 1.25 mg INH Q2HR PRN PRN Reason: SOB/WHEEZING Last Admin: 09/12/18 05:00 Dose: 1.25 mg Magnesium Oxide (Magox 400 Tab*) 400 mg PO BID [facility] Last Admin: 09/15/18 10:05 Dose: 400 mg Methylprednisolone Sodium Succinate (Solu-Medrol 40 Mg) 30 mg IV DAILY [facility] Last Admin: 09/15/18 10:04 Dose: 30 mg Metoprolol Succinate (Toprol Xl Tab*) 100 mg PO TID [facility] Last Admin: 09/15/18 14:33 Dose: 100 mg Mometasone Furoate/Formoterol Fumar (Dulera 200/5 Mdi*) 2 puff INH BID [facility] Last Admin: 09/15/18 07:56 Dose: 2 puff Morphine Sulfate (Morphine Oral.Soln 10 Mg*) 10 mg PO Q4H PRN PRN Reason: PAIN Last Admin: 09/15/18 11:40 Dose: 10 mg Morphine Sulfate (Morphine Vial*) 2 mg IV Q4H PRN PRN Reason: PAIN - MILD Last Admin: 09/15/18 06:43 Dose: 2 mg Omeprazole (Prilosec Cap*) 20 mg PO DAILY@0730 [facility] Last Admin: 09/15/18 10:05 Dose: 20 mg Rivaroxaban (Xarelto(*)) 20 mg PO DAILY [facility] Last Admin: 09/15/18 10:05 Dose: 20 mg Sucralfate (Carafate*) 1 gm PO 0630,1100,1600,2100 [facility] Last Admin: 09/15/18 11:40 Dose: 1 gm Umeclidinium [place] (Incruse Ellipta Mdi (Nf)) 1 inh INH DAILY [facility] Last Admin: 09/15/18 08:03 Dose: Not Given Vital Signs - 8 hr 09/15/18 09/15/18 09/15/18 07:17 07:57 08:00 Temperature 97.2 F Pulse Rate 79 75 Respiratory 19 20 20 Rate Blood Pressure 127/81 (mmHg) O2 Sat by Pulse 99 96 Oximetry 09/15/18 09/15/18 09/15/18 10:07 11:12 11:40 Temperature 97.3 F Pulse Rate 37 Respiratory 20 20 20 Rate Blood Pressure 143/77 (mmHg) O2 Sat by Pulse 99 Oximetry 09/15/18 09/15/18 13:48 14:33 Temperature Pulse Rate 75 Respiratory 20 22 Rate Blood Pressure (mmHg) O2 Sat by Pulse 97 Oximetry Oxygen Devices in Use Now: Nasal Cannula Appearance: alert, NAD Eyes: No Scleral Icterus, PERRLA Ears/Nose/Mouth/Throat: NL Teeth, Lips, Gums, Mucous Membranes Moist Neck: NL Appearance and Movements; NL JVP, Trachea Midline Respiratory: - - course breath sounds throughout with poor air entry and exp wheeze, sats adequate Cardiovascular: NL Sounds; No Murmurs; No JVD, RRR, No Edema Abdominal: NL Sounds; No Tenderness; No Distention Extremities: No Clubbing, Cyanosis, - - +2 bipedal edema Skin: No Rash or Ulcers Neurological: Alert and Oriented x 3, NL Gait Nutrition: Taking PO's Result Diagrams: 09/14/18 05:14 09/14/18 05:14 Additional Lab and Data: Laboratory Results - last 24 hr 09/10/18 09/10/18 09/10/18 08:37 08:37 10:50 WBC 19.9 H RBC 3.39 L Hgb 11.3 L Hct 34 L MCV 100 H MCH 33 H MCHC 33 RDW 14 Plt Count 187 MPV 7.4 Neut % (Auto) 95.0 Lymph % (Auto) 2.5 [place] % (Auto) 2.4 Eos % (Auto) 0 Baso % (Auto) 0.1 Absolute Neuts (auto) 18.9 H Absolute Lymphs (auto) 0.5 L Absolute Monos (auto) 0.5 Absolute Eos (auto) 0 Absolute Basos (auto) 0 Absolute Nucleated RBC 0 Nucleated RBC % 0.1 Patient Temperature ABG pH ABG pH (Temp Correct) ABG pCO2 ABG pCO2 (Temp Corrct ABG pO2 ABG pO2 (Temp Correct ABG HCO3 ABG O2 Saturation ABG Base Excess Respiration Rate O2 Delivery Device Ventilator Type Vent Mode FiO2 Inspiratory Time PEEP Pressure Support Pressure Control EPAP IPAP BiPAP Sodium 135 Potassium 4.2 Chloride 102 Carbon Dioxide 28 Anion Gap 5 BUN 17 Creatinine 0.98 Est GFR ( Amer) 95.4 Est GFR (Non-Af Amer) 78.8 BUN/Creatinine Ratio 17.3 Glucose 157 H POC Glucose (mg/dL) 151 H Calcium 9.2 Magnesium 1.7 L Total Bilirubin 0.30 AST 37 ALT 43 Alkaline Phosphatase 64 Troponin I Cancelled Total Protein 5.9 L Albumin 3.9 Globulin 2.0 Albumin/Globulin Ratio 2.0 09/10/18 09/10/18 09/10/18 11:09 11:30 15:10 WBC RBC Hgb Hct MCV MCH MCHC RDW Plt Count MPV Neut % (Auto) Lymph % (Auto) [place] % (Auto) Eos % (Auto) Baso % (Auto) Absolute Neuts (auto) Absolute Lymphs (auto) Absolute Monos (auto) Absolute Eos (auto) Absolute Basos (auto) Absolute Nucleated RBC Nucleated RBC % Patient Temperature Not Reportable ABG pH 7.42 ABG pH (Temp Correct) Not Reportable ABG pCO2 42 ABG pCO2 (Temp Corrct Not Reportable ABG pO2 102 H ABG pO2 (Temp Correct Not Reportable ABG HCO3 26.8 ABG O2 Saturation 98.9 H ABG Base Excess 2.4 H Respiration Rate Not Reportable O2 Delivery Device n/c Ventilator Type Not Reportable Vent Mode Not Reportable FiO2 28 Inspiratory Time Not Reportable PEEP Not Reportable Pressure Support Not Reportable Pressure Control Not Reportable EPAP Not Reportable IPAP Not Reportable BiPAP Not Reportable Sodium Potassium Chloride Carbon Dioxide Anion Gap BUN Creatinine Est GFR ( Amer) Est GFR (Non-Af Amer) BUN/Creatinine Ratio Glucose POC Glucose (mg/dL) Calcium Magnesium Total Bilirubin AST ALT Alkaline Phosphatase Troponin I 0.04 H* 0.03 Total Protein Albumin Globulin Albumin/Globulin Ratio 09/10/18 16:58 WBC RBC Hgb Hct MCV MCH MCHC RDW Plt Count MPV Neut % (Auto) Lymph % (Auto) [place] % (Auto) Eos % (Auto) Baso % (Auto) Absolute Neuts (auto) Absolute Lymphs (auto) Absolute Monos (auto) Absolute Eos (auto) Absolute Basos (auto) Absolute Nucleated RBC Nucleated RBC % Patient Temperature ABG pH ABG pH (Temp Correct) ABG pCO2 ABG pCO2 (Temp Corrct ABG pO2 ABG pO2 (Temp Correct ABG HCO3 ABG O2 Saturation ABG Base Excess Respiration Rate O2 Delivery Device Ventilator Type Vent Mode FiO2 Inspiratory Time PEEP Pressure Support Pressure Control EPAP IPAP BiPAP Sodium Potassium Chloride Carbon Dioxide Anion Gap BUN Creatinine Est GFR ( Amer) Est GFR (Non-Af Amer) BUN/Creatinine Ratio Glucose POC Glucose (mg/dL) Calcium Magnesium Total Bilirubin AST ALT Alkaline Phosphatase Troponin I 0.04 H* Total Protein Albumin Globulin Albumin/Globulin Ratio Microbiology and Other Data: Microbiology 09/10/18 23:07 Legionella Urinary Antigen - Final Urine Negative Legionella Antigen Streptococcus pneumoniae Ag Screen - Final Negative S. pneumo Antigen Assess/Plan/Problems-Billing Assessment: This is a 57 year old man with history of afib/flutter s/p recent ablation (the 2nd one this year) who presented with lightheadedness and palpitations and was found to be in atrial flutter, now with respiratory failure and a copd exacerbation. - Patient Problems (1) Acute and chronic respiratory failure with hypoxia Current Visit: Yes Status: Acute Priority: High Code(s): J96.21 - ACUTE AND CHRONIC RESPIRATORY FAILURE WITH HYPOXIA SNOMED Code(s): 68043045 Comment: - COPD exacerbation with slow improvement - Wardrobe Technician recommends eval for lung transplant after cardiac status stabilized - Flutter valve, aggressive pulm tolieting - Titrate O2, continue nebs and steroids, cefepime and doxy - Eval for Bipap at DC (2) Atrial flutter Code(s): I48.92 - UNSPECIFIED ATRIAL FLUTTER SNOMED Code(s): 2261608 Comment: - Failed 2 ablations - Possibility for AV aurelio ablation and PM insertion to control tachycardia - Anticoagulated with xarelto - Continue Amiodarone, Metoprolol, cardizem PRN (3) COPD exacerbation Code(s): J44.1 - CHRONIC OBSTRUCTIVE PULMONARY DISEASE W (ACUTE) EXACERBATION SNOMED Code(s): 752405943 Comment: - With persistent respiratory failure - Continue per pulm recs as above (4) Lower extremity edema Code(s): R60.0 - LOCALIZED EDEMA SNOMED Code(s): 893594081 Comment: - Torsemide PRN (5) DVT prophylaxis Code(s): OJQ1653 - SNOMED Code(s): 858371232 Comment: - Xarelto (6) Full code status Code(s): Z78.9 - OTHER SPECIFIED HEALTH STATUS SNOMED Code(s): 580367989 Status and Disposition: Inpatient, requested records from [facility]. Will reach out to pulm to determine timing for transplant eval (transfer vs stabilization and outpatient follow up).
--- NOTE | 2018-09-15 16:25 | PN ---
Progress Note - Progress Note Date of Service: 09/15/18 - Pulm f/u note Note: Pt seen and examined at bedside. Pt reports feeling better, was ambulating in hallway. O2 sat stayed above 90% however tachycardic with irregular rate. Active Medications Generic Name Dose Route Start Last Admin Trade Name Freq PRN Reason Stop Dose Admin Acetaminophen 650 mg 09/07/18 12:35 09/14/18 05:32 Tylenol Tab* PO 650 mg Q4H PRN Administration FEVER/PAIN Al Hydrox/Mg Hydrox/Simethicone 30 ml 09/07/18 12:35 Maalox Plus* PO Q6H PRN INDIGESTION Albuterol/Ipratropium 1 neb 09/08/18 01:53 09/11/18 23:10 Duoneb (Albuterol 2.5 Mg/Ipratropium 0.5 Mg) INH 1 neb Q4H PRN Administration SOB/WHEEZING Albuterol/Ipratropium 1 neb 09/13/18 19:00 09/15/18 13:48 Duoneb (Albuterol 2.5 Mg/Ipratropium 0.5 Mg) INH 1 neb [id number] AWAKE JUSTIN Administration Amiodarone HCl 200 mg 09/08/18 09:00 09/15/18 10:05 Cordarone Tab* PO 200 mg DAILY JUSTIN Administration Diltiazem HCl 30 mg 09/07/18 13:15 Cardizem Tab* PO BID PRN TACHYCARDIA Guaifenesin 1,200 mg 09/13/18 21:00 09/15/18 10:05 Mucinex* PO 1,200 mg BID JUSTIN Administration Cefepime HCl 1 gm in 50 mls @ 100 mls/hr 09/10/18 21:00 09/15/18 09:52 Maxipime 1 Gm In Dextrose Duplex (*) IV 100 mls/hr Q12H JUSTIN Administration Doxycycline Hyclate 100 mg/ 250 mls @ 250 mls/hr 09/10/18 23:30 09/15/18 11: 42 Sodium Chloride IVPB 250 mls/hr 1130,2330 JUSTIN Administration Levalbuterol HCl 1.25 mg 09/08/18 01:52 09/12/18 05:00 Xopenex 1.25 Mg/0.5 Ml Neb.Leona* INH 1.25 mg Q2HR PRN Administration SOB/WHEEZING Magnesium Oxide 400 mg 09/07/18 21:00 09/15/18 10:05 Magox 400 Tab* PO 400 mg BID JUSTIN Administration Methylprednisolone Sodium Succinate 30 mg 09/14/18 10:00 09/15/18 10:04 Solu-Medrol 40 Mg IV 30 mg DAILY JUSTIN Administration Metoprolol Succinate 100 mg 09/07/18 14:00 09/15/18 14:33 Toprol Xl Tab* PO 100 mg TID JUSTIN Administration Mometasone Furoate/Formoterol Fumar 2 puff 09/10/18 09:00 09/15/18 07:56 Dulera 200/5 Mdi* INH 2 puff BID JUSTIN Administration Morphine Sulfate 10 mg 09/13/18 14:48 09/15/18 11:40 Morphine Oral.Soln 10 Mg* PO 10 mg Q4H PRN Administration PAIN Morphine Sulfate 2 mg 09/13/18 16:07 09/15/18 06:43 Morphine Vial* IV 2 mg Q4H PRN Administration PAIN - MILD Omeprazole 20 mg 09/08/18 07:30 09/15/18 10:05 Prilosec Cap* PO 20 mg DAILY@0730 JUSTIN Administration Rivaroxaban 20 mg 09/08/18 09:00 09/15/18 10:05 Xarelto(*) PO 20 mg DAILY [facility] Administration Sucralfate 1 gm 09/08/18 11:00 09/15/18 11:40 Carafate* PO 1 gm 0630,1100,1600,2100 JUSTIN Administration Umeclidinium [place] 1 inh 09/08/18 09:00 09/15/18 08:03 Incruse Ellipta Mdi (Nf) INH Not Given DAILY [facility] Vital Signs Temp Pulse Resp BP Pulse Ox 97.3 F 75 22 143/77 97 09/15/18 11:12 09/15/18 13:48 09/15/18 14:33 09/15/18 11:12 09/15/18 13:48 O/E: Pt in NAD HEENT: PERRLA, No JVD Lungs: Diminished air entry b/l, scattered wheeze+, improved aeration compared to before CVS: S1, S2+, regular Abd: Obese, Soft, BS+ Ext: Normal ROM, Rt foot edematous Neuro: No focal deficits Skin: No rash Labs: No new labs O/E: 57 y o m with h/o severe COPD, A.fib with recurrence a/w SOB, was noted to be in acute COPD exacerbation and A.fib with RVR Pt with improved dyspnea, still having irregular rhythm, tachycardia with exertion Able to expectorate mucus better Mucinex is helping Saturating well on RA On Solumedrol 30mg daily, will continue to taper Morphine has been helpful Flutter device usage q 4hrs c/w bronchodilators On abx Rt foot edema, might benefit from stat dose of Lasix Will order overnight oximetry to qualify pt for BiPAP at d/c Will need cardio f/u on d/c
[2018-09-15] MEDS: Acetaminophen TAB* 325 MG PO PRN (17:12)
--- NOTE | 2018-09-15 17:26 | ECHO ---
Patient: REMA [facility] Rec#: [id number] : 1960 Date: 09/15/2018 Age: 57y Height: 168 cm / 66.1 in Weight: 72.4 kg / 159.6 lbs Sex: M BSA: 1.82 Room#: [facility] Admit Date#: 09/07/2018 Type: Inpatient Referring: Myah Ugarte Reading: Kush Dickens MD Merchandise Examiner: Kellen Garcia RN RDCS CC: Allyn Heredia MD Transthoracic Echocardiogram Indication: Shortness of breath, A. fib, SVT BP: 143/77 HR: 77 Rhythm: NSR with PACs Findings History: A. fib/A. flutter with ablations, HTN, pacemaker, COPD, YAMEL on CPAP, chronic hypoxic respiratory failure, former smoker, ETOH use. Technical Comments: The study quality is fair. The study is technically limited due to the patient's smoking history. Left Ventricle: The left ventricular chamber size is normal. Mild concentric left ventricular hypertrophy is observed. Global left ventricular wall motion and contractility are within normal limits. There is normal left ventricular systolic function. The estimated ejection fraction is 55-60%. Abnormal left ventricular diastolic function is observed. Abnormal left ventricular diastolic filling is observed, consistent with impaired relaxation. Left Atrium: The left atrial chamber size is normal. Right Ventricle: The right ventricular cavity size is normal. The right ventricular global systolic function is normal. A pacemaker wire is visualized in the right ventricle. Right Atrium: The right atrial cavity size is normal. A pacemaker wire is visualized in the right atrium. Aortic Valve: The aortic valve structure is not well visualized. The aortic valve leaflets are mildly thickened. There is a trace of aortic regurgitation. There is no evidence of aortic stenosis. Mitral Valve: The mitral valve leaflets are mildly thickened. Mild subvalvular thickening of the mitral valve is visualized. There is flattened closure of the mitral valve leaflets. There is trace to mild mitral regurgitation. There is no evidence of mitral stenosis. Tricuspid Valve: The tricuspid valve leaflets are normal. There is trace to mild tricuspid regurgitation. There is evidence that pulmonary hypertension may be underestimated. There is no tricuspid stenosis. Pulmonic Valve: The pulmonic valve structure is not well visualized. Pericardium: There is no significant pericardial effusion. Aorta: There is no dilatation of the ascending aorta. The aortic arch is not well visualized. There is no dilation of the aortic root. Pulmonary Artery: The main pulmonary artery is not well visualized. Venous: The inferior vena cava appears normal in size. There is a greater than 50% respiratory change in the inferior vena cava dimension. Conclusions Mild concentric left ventricular hypertrophy is observed. The estimated ejection fraction is 55-60%. Abnormal left ventricular diastolic filling is observed, consistent with impaired relaxation. The aortic valve leaflets are mildly thickened. There is flattened closure of the mitral valve leaflets. There is trace to mild mitral regurgitation. There is trace to mild tricuspid regurgitation. There is evidence that pulmonary hypertension may be underestimated. Similar to 07/2018 Measurements Name Value Normal Range RVIDd (AP) 2D 2.7 cm (0.9 - 2.6) RVDdMajor (2D) 2.7 cm (2.2 - 4.4) RAd ISD 4CH 3.9 cm (3.4 - 4.9) RA (A4C)W 3.2 cm (2.9 - 4.6) IVSd (2D) 1.1 cm (0.6 - 1) LVPWd (2D) 1.2 cm (0.6 - 1) LVIDd (2D) 4 cm (3.6 - 5.4) LVIDs (2D) 2.8 cm - LV FS (2D) 30 % (25 - 45) Aortic Annulus 1.9 cm (1.4 - 2.6) Ao root diameter (2D) 2.9 cm (2.1 - 3.5) Ascending Ao 2.9 cm (2.1 - 3.4) LA dimension (AP) 2D 3 cm (2.3 - 3.8) LAd ISD 4CH 3.7 cm (2.9 - 5.3) LA ISD 4CH W 4 cm (2.5 - 4.5) Name Value Normal Range LA ESV BP (A/L) index 20.1 ml/m2 - Name Value Normal Range MV E-wave Vmax 0.99 m/sec - MV deceleration time 243 msec - MV A-wave Vmax 0.67 m/sec - MV E:A ratio 1.5 ratio - LV septal e' Vmax 0.07 m/sec - LV lateral e' Vmax 0.09 m/sec - LV E:e' septal ratio 14.1 ratio - LV E:e' lateral ratio 11 ratio - Name Value Normal Range AV Vmax 1.2 m/sec - AV VTI 25.3 cm - AV peak gradient 6 mmHg - AV mean gradient 3 mmHg - LVOT Vmax 0.92 m/sec - LVOT VTI 16.8 cm - LVOT peak gradient 3 mmHg - LVOT mean gradient 2 mmHg - Name Value Normal Range TR Vmax 2.5 m/sec - TR peak gradient 25 mmHg - RAP 3 mmHg - RVSP 28 mmHg - IVC diameter 1.6 cm - Name Value Normal Range PV Vmax 0.75 m/sec -
[2018-09-15] MEDS: Levalbuterol 1.25MG/0.5ML NEB INH PRN (17:29)
[2018-09-16] MEDS: Morphine ORAL.SOLN 10 mg* 2 MG/ML UDC 5 ml PO PRN ×2 (00:34→10:06)
[2018-09-16] MEDS: Albuterol/Ipratropium NEB.SOL* Albuterol 2.5 MG/Ipratropium 0.5 MG 3 ML INH SCH ×4 (00:56→19:34)
[2018-09-16] MEDS: ALPRAZolam TAB* 0.25 MG PO PRN ×3 (01:29→15:39)
[2018-09-16] MEDS: Sucralfate TAB* 1 GM PO SCH ×4 (06:28→20:30)
[2018-09-16] MEDS: Umeclidinium 62.5 MDI(NF) MDI INH SCH (07:23)
[2018-09-16] MEDS: Mometasone/Formoter 200/5 MDI INH SCH ×2 (07:28→19:34)
[2018-09-16] MEDS: guaiFENesin ER TAB 600 MG PO SCH ×2 (08:52→20:07)
[2018-09-16] MEDS: Metoprolol Succinate XL TAB* 100 MG PO SCH ×3 (08:52→20:07)
[2018-09-16] MEDS: Magnesium Oxide TAB* 400 MG PO SCH ×2 (08:52→20:07)
[2018-09-16] MEDS: Omeprazole CAP* 20 MG PO SCH (08:53)
[2018-09-16] MEDS: Amiodarone TAB* 200 MG PO SCH (08:53)
[2018-09-16] MEDS: Rivaroxaban TAB(*) 20 MG TAB PO SCH (08:53)
[2018-09-16] MEDS: methylPREDNISolone SOD 40 MG* 1 ML VIAL IV SCH (08:54)
[2018-09-16] MEDS: Cefepime 1 GM in Dextrose(*) 1 GM/50 ML BAG IV SCH ×2 (08:54→20:19)
--- NOTE | 2018-09-16 10:59 | PN ---
Progress Note - Progress Note Date of Service: 09/16/18 - Pulmonary f/u note Note: Pt seen and examined at bedside. Pt reports breathing is improved. Still having episodes of tachycardia and A.fib. Had o/n oximetry monitoring last night. reports that he doesnot sleep longer than 4-5 yrs each time and was walking around 2 am last night with o/n oximetry recording ongoing and reports that O2 dropped to 81% while ambulating and heart rate increased to 140. Cough and secretions are improved. No other issues Active Medications Generic Name Dose Route Start Last Admin Trade Name Freq PRN Reason Stop Dose Admin Acetaminophen 650 mg 09/07/18 12:35 09/15/18 17:12 Tylenol Tab* PO 650 mg Q4H PRN Administration FEVER/PAIN Al Hydrox/Mg Hydrox/Simethicone 30 ml 09/07/18 12:35 Maalox Plus* PO Q6H PRN INDIGESTION Albuterol/Ipratropium 1 neb 09/08/18 01:53 09/11/18 23:10 Duoneb (Albuterol 2.5 Mg/Ipratropium 0.5 Mg) INH 1 neb Q4H PRN Administration SOB/WHEEZING Albuterol/Ipratropium 1 neb 09/13/18 19:00 09/16/18 07:28 Duoneb (Albuterol 2.5 Mg/Ipratropium 0.5 Mg) INH 1 neb [id number] AWAKE JUSTIN Administration Alprazolam 0.25 mg 09/15/18 19:06 09/16/18 09:14 Xanax Tab* PO 0.25 mg Q6H PRN Administration AGITATION/ANXIETY Amiodarone HCl 200 mg 09/08/18 09:00 09/16/18 08:53 Cordarone Tab* PO 200 mg DAILY JUSTIN Administration Diltiazem HCl 30 mg 09/07/18 13:15 Cardizem Tab* PO BID PRN TACHYCARDIA Guaifenesin 1,200 mg 09/13/18 21:00 09/16/18 08:52 Mucinex* PO 1,200 mg BID JUSTIN Administration Cefepime HCl 1 gm in 50 mls @ 100 mls/hr 09/10/18 21:00 09/16/18 08:54 Maxipime 1 Gm In Dextrose Duplex (*) IV 100 mls/hr Q12H JUSTIN Administration Doxycycline Hyclate 100 mg/ 250 mls @ 250 mls/hr 09/10/18 23:30 09/15/18 22: 59 Sodium Chloride IVPB 250 mls/hr 1130,2330 JUSTIN Administration Levalbuterol HCl 1.25 mg 09/08/18 01:52 09/15/18 17:29 Xopenex 1.25 Mg/0.5 Ml Neb.Leona* INH 1.25 mg Q2HR PRN Administration SOB/WHEEZING Magnesium Oxide 400 mg 09/07/18 21:00 09/16/18 08:52 Magox 400 Tab* PO 400 mg BID JUSTIN Administration Methylprednisolone Sodium Succinate 30 mg 09/14/18 10:00 09/16/18 08:54 Solu-Medrol 40 Mg IV 30 mg DAILY JUSTIN Administration Metoprolol Succinate 100 mg 09/07/18 14:00 09/16/18 08:52 Toprol Xl Tab* PO 100 mg TID JUSTIN Administration Mometasone Furoate/Formoterol Fumar 2 puff 09/10/18 09:00 09/16/18 07:28 Dulera 200/5 Mdi* INH 2 puff BID JUSTIN Administration Morphine Sulfate 10 mg 09/13/18 14:48 09/16/18 10:06 Morphine Oral.Soln 10 Mg* PO 10 mg Q4H PRN Administration PAIN Morphine Sulfate 2 mg 09/13/18 16:07 09/15/18 06:43 Morphine Vial* IV 2 mg Q4H PRN Administration PAIN - MILD Omeprazole 20 mg 09/08/18 07:30 09/16/18 08:53 Prilosec Cap* PO 20 mg DAILY@0730 JUSTIN Administration Rivaroxaban 20 mg 09/08/18 09:00 09/16/18 08:53 Xarelto(*) PO 20 mg DAILY JUSTIN Administration Sucralfate 1 gm 09/08/18 11:00 09/16/18 06:28 Carafate* PO 1 gm 0630,1100,1600,2100 JUSTIN Administration Umeclidinium [place] 1 inh 09/08/18 09:00 09/16/18 07:23 Incruse Ellipta Mdi (Nf) INH Not Given DAILY [facility] Vital Signs Temp Pulse Resp BP Pulse Ox 97.5 F 82 16 131/83 100 09/16/18 07:37 09/16/18 07:37 09/16/18 10:06 09/16/18 07:37 09/16/18 07:37 O/E: Pt in NAD, not dyspneic HEENT: PERRLA, No JVD Lungs: improved aeration compared to before CVS: S1, S2+, irregular at times Abd: Obese, Soft, BS+ Ext: Normal ROM, Rt foot edematous Neuro: No focal deficits Skin: No rash Labs: No new labs O/N oximetry was personally reviewed and with pt today- Hypoxia with O2 less than 88% for more than hr with radha O2 of 81% O/E: 57 y o m with h/o severe COPD, A.fib with recurrence a/w SOB, was noted to be in acute COPD exacerbation and A.fib with RVR Pt with improved dyspnea, still having issues with irregular rhythm ECHO didnot show any changes Had ablation in the past, will take more time as per cardio Dyspnea is improved Has cardio as out pt Able to expectorate mucus better Mucinex is helping Saturating well on RA On Solumedrol 30mg daily, will continue to taper, change to 20 mg daily today Morphine has been helpful Flutter device usage q 4hrs c/w bronchodilators For BiPAP at d/c Lung transplant evaluation as out pt when pt more stable from cardiac perspective D/w Myah Dimas NP
[2018-09-16] MEDS: DOXYcycline IV* 100 MG in NS 0.9% 250 ML* 250 ML IVPB SCH ×2 (11:07→23:14)
[2018-09-16] MEDS: Morphine VIAL* 4 MG/ML VIAL (1 ml vial) IV PRN ×2 (11:07→20:04)
--- NOTE | 2018-09-16 13:32 | PN ---
Subjective Date of Service: 09/16/18 Interval History: Pt states that he is still short of breath and he feels a "burning" in his lungs. He states that the mucinex appears to be helping him clear secretions. Pt has RLE edema. Family History: Unchanged from Admission Social History: Unchanged from Admission Past Medical History: Unchanged from Admission Objective Active Medications: Acetaminophen (Tylenol Tab*) 650 mg PO Q4H PRN Al Hydrox/Mg Hydrox/Simethicone (Maalox Plus*) 30 ml PO Q6H PRN Albuterol/Ipratropium (Duoneb (Albuterol 2.5 Mg/Ipratropium 0.5 Mg)) 1 neb INH Q4H PRN Albuterol/Ipratropium (Duoneb (Albuterol 2.5 Mg/Ipratropium 0.5 Mg)) 1 neb INH [id number] AWAKE JUSTIN Alprazolam (Xanax Tab*) 0.25 mg PO Q6H PRN Amiodarone HCl (Cordarone Tab*) 200 mg PO DAILY JUSTIN Diltiazem HCl (Cardizem Tab*) 30 mg PO BID PRN Guaifenesin (Mucinex*) 1,200 mg PO BID JUSTIN Cefepime HCl (Maxipime 1 Gm In Dextrose Duplex (*)) 1 gm in 50 mls @ 100 mls/ hr IV Q12H JUSTIN Doxycycline Hyclate 100 mg/ (Sodium Chloride) 250 mls @ 250 mls/hr IVPB 1130, 2330 JUSTIN Levalbuterol HCl (Xopenex 1.25 Mg/0.5 Ml Neb.Leona*) 1.25 mg INH Q2HR PRN Magnesium Oxide (Magox 400 Tab*) 400 mg PO BID [facility] Methylprednisolone Sodium Succinate (Solu-Medrol 40 Mg) 30 mg IV DAILY [facility] Metoprolol Succinate (Toprol Xl Tab*) 100 mg PO TID JUSTIN Mometasone Furoate/Formoterol Fumar (Dulera 200/5 Mdi*) 2 puff INH BID JUSTIN Morphine Sulfate (Morphine Oral.Soln 10 Mg*) 10 mg PO Q4H PRN Morphine Sulfate (Morphine Vial*) 2 mg IV Q4H PRN Omeprazole (Prilosec Cap*) 20 mg PO DAILY@0730 [facility] Rivaroxaban (Xarelto(*)) 20 mg PO DAILY JUSTIN Sucralfate (Carafate*) 1 gm PO 0630,1100,1600,2100 JUSTIN Umeclidinium [place] (Incruse Ellipta Mdi (Nf)) 1 inh INH DAILY JUSTIN Vital Signs: Temp Pulse Resp BP Pulse Ox 97.5 F 82 18 131/83 100 09/16/18 07:37 09/16/18 07:37 09/16/18 11:10 09/16/18 07:37 09/16/18 07:37 Oxygen Devices in Use Now: None Appearance: Pt is sitting and resting; in no acute distress. Eyes: No Scleral Icterus Ears/Nose/Mouth/Throat: NL Teeth, Lips, Gums, Mucous Membranes Moist Neck: NL Appearance and Movements; NL JVP, Trachea Midline Respiratory: Symmetrical Chest Expansion and Respiratory Effort, - - Diffuse inspiratory and expiratory wheezing throughout the lungs Cardiovascular: NL Sounds; No Murmurs; No JVD, RRR, - Abdominal: NL Sounds; No Tenderness; No Distention Extremities: - - RLE edema 2+ pitting; Reza's negative, denies calf tenderness Skin: No Rash or Ulcers Neurological: Alert and Oriented x 3 Result Diagrams: 09/14/18 05:14 09/14/18 05:14 Additional Lab and Data: Laboratory Results - last 24 hr 09/10/18 09/10/18 09/10/18 08:37 08:37 10:50 WBC 19.9 H RBC 3.39 L Hgb 11.3 L Hct 34 L MCV 100 H MCH 33 H MCHC 33 RDW 14 Plt Count 187 MPV 7.4 Neut % (Auto) 95.0 Lymph % (Auto) 2.5 Brown % (Auto) 2.4 Eos % (Auto) 0 Baso % (Auto) 0.1 Absolute Neuts (auto) 18.9 H Absolute Lymphs (auto) 0.5 L Absolute Monos (auto) 0.5 Absolute Eos (auto) 0 Absolute Basos (auto) 0 Absolute Nucleated RBC 0 Nucleated RBC % 0.1 Patient Temperature ABG pH ABG pH (Temp Correct) ABG pCO2 ABG pCO2 (Temp Corrct ABG pO2 ABG pO2 (Temp Correct ABG HCO3 ABG O2 Saturation ABG Base Excess Respiration Rate O2 Delivery Device Ventilator Type Vent Mode FiO2 Inspiratory Time PEEP Pressure Support Pressure Control EPAP IPAP BiPAP Sodium 135 Potassium 4.2 Chloride 102 Carbon Dioxide 28 Anion Gap 5 BUN 17 Creatinine 0.98 Est GFR ( Amer) 95.4 Est GFR (Non-Af Amer) 78.8 BUN/Creatinine Ratio 17.3 Glucose 157 H POC Glucose (mg/dL) 151 H Calcium 9.2 Magnesium 1.7 L Total Bilirubin 0.30 AST 37 ALT 43 Alkaline Phosphatase 64 Troponin I Cancelled Total Protein 5.9 L Albumin 3.9 Globulin 2.0 Albumin/Globulin Ratio 2.0 09/10/18 09/10/18 09/10/18 11:09 11:30 15:10 WBC RBC Hgb Hct MCV MCH MCHC RDW Plt Count MPV Neut % (Auto) Lymph % (Auto) Brown % (Auto) Eos % (Auto) Baso % (Auto) Absolute Neuts (auto) Absolute Lymphs (auto) Absolute Monos (auto) Absolute Eos (auto) Absolute Basos (auto) Absolute Nucleated RBC Nucleated RBC % Patient Temperature Not Reportable ABG pH 7.42 ABG pH (Temp Correct) Not Reportable ABG pCO2 42 ABG pCO2 (Temp Corrct Not Reportable ABG pO2 102 H ABG pO2 (Temp Correct Not Reportable ABG HCO3 26.8 ABG O2 Saturation 98.9 H ABG Base Excess 2.4 H Respiration Rate Not Reportable O2 Delivery Device n/c Ventilator Type Not Reportable Vent Mode Not Reportable FiO2 28 Inspiratory Time Not Reportable PEEP Not Reportable Pressure Support Not Reportable Pressure Control Not Reportable EPAP Not Reportable IPAP Not Reportable BiPAP Not Reportable Sodium Potassium Chloride Carbon Dioxide Anion Gap BUN Creatinine Est GFR ( Amer) Est GFR (Non-Af Amer) BUN/Creatinine Ratio Glucose POC Glucose (mg/dL) Calcium Magnesium Total Bilirubin AST ALT Alkaline Phosphatase Troponin I 0.04 H* 0.03 Total Protein Albumin Globulin Albumin/Globulin Ratio 09/10/18 16:58 WBC RBC Hgb Hct MCV MCH MCHC RDW Plt Count MPV Neut % (Auto) Lymph % (Auto) Brown % (Auto) Eos % (Auto) Baso % (Auto) Absolute Neuts (auto) Absolute Lymphs (auto) Absolute Monos (auto) Absolute Eos (auto) Absolute Basos (auto) Absolute Nucleated RBC Nucleated RBC % Patient Temperature ABG pH ABG pH (Temp Correct) ABG pCO2 ABG pCO2 (Temp Corrct ABG pO2 ABG pO2 (Temp Correct ABG HCO3 ABG O2 Saturation ABG Base Excess Respiration Rate O2 Delivery Device Ventilator Type Vent Mode FiO2 Inspiratory Time PEEP Pressure Support Pressure Control EPAP IPAP BiPAP Sodium Potassium Chloride Carbon Dioxide Anion Gap BUN Creatinine Est GFR ( Amer) Est GFR (Non-Af Amer) BUN/Creatinine Ratio Glucose POC Glucose (mg/dL) Calcium Magnesium Total Bilirubin AST ALT Alkaline Phosphatase Troponin I 0.04 H* Total Protein Albumin Globulin Albumin/Globulin Ratio Microbiology and Other Data: Microbiology 09/10/18 23:07 Legionella Urinary Antigen - Final Urine Negative Legionella Antigen Streptococcus pneumoniae Ag Screen - Final Negative S. pneumo Antigen Assess/Plan/Problems-Billing Assessment: This is a 57 year old man with history of afib/flutter s/p recent ablation (the 2nd one this year) who presented with lightheadedness and palpitations and was found to be in atrial flutter, now with respiratory failure and a copd exacerbation. - Patient Problems (1) Acute and chronic respiratory failure with hypoxia Comment: - COPD exacerbation with slow improvement - Coat Checker recommends eval for lung transplant after cardiac status stabilized - Flutter valve, aggressive pulm tolieting - Titrate O2, continue nebs and steroids, cefepime and doxy - Decrease Solu-medrol to 20mg x3d starting tomorrow, then 10 mg x3d, then d/c - Bipap paperwork started (2) Atrial flutter Comment: - Failed 2 ablations - Possibility for AV aurelio ablation and PM insertion to control tachycardia - Anticoagulated with xarelto - Continue Amiodarone, Metoprolol, cardizem PRN (3) COPD exacerbation Comment: - With persistent respiratory failure - Continue per pulm recs as above (4) Lower extremity edema Comment: - TEDS compression - Torsemide PRN (5) DVT prophylaxis Comment: - Xarelto (6) Full code status Status and Disposition: Inpatient, requested records from [facility]. Stabilize and outpatient follow-up for transplant.
[2018-09-17] MEDS: Morphine VIAL* 4 MG/ML VIAL (1 ml vial) IV PRN (00:10)
[2018-09-17] MEDS: Albuterol/Ipratropium NEB.SOL* Albuterol 2.5 MG/Ipratropium 0.5 MG 3 ML INH SCH ×2 (01:29→07:05)
[2018-09-17] MEDS: ALPRAZolam TAB* 0.25 MG PO PRN ×2 (03:33→09:29)
[2018-09-17] MEDS: Sucralfate TAB* 1 GM PO SCH (06:28)
[2018-09-17] MEDS: Mometasone/Formoter 200/5 MDI INH SCH (07:06)
[2018-09-17] MEDS: Umeclidinium 62.5 MDI(NF) MDI INH SCH (07:06)
[2018-09-17 07:24] VITALS: BP 145/92
[2018-09-17] MEDS: guaiFENesin ER TAB 600 MG PO SCH (07:37)
[2018-09-17] MEDS: Amiodarone TAB* 200 MG PO SCH (07:37)
[2018-09-17] MEDS: Rivaroxaban TAB(*) 20 MG TAB PO SCH (07:37)
[2018-09-17] MEDS: Metoprolol Succinate XL TAB* 100 MG PO SCH (07:37)
[2018-09-17] MEDS: Omeprazole CAP* 20 MG PO SCH (07:38)
[2018-09-17] MEDS: Magnesium Oxide TAB* 400 MG PO SCH (07:38)
[2018-09-17] MEDS: Cefepime 1 GM in Dextrose(*) 1 GM/50 ML BAG IV SCH (08:24)
[2018-09-17] MEDS ORDERED: methylPREDNISolone SOD 40 MG* 1 ML VIAL IV SCH (09:00)
[2018-09-17] MEDS: Morphine ORAL.SOLN 10 mg* 2 MG/ML UDC 5 ml PO PRN (09:29)
--- NOTE | 2018-09-18 02:06 | DS ---
DISCHARGE SUMMARY: DATE OF ADMISSION: 09/07/18 DATE OF DISCHARGE: 09/17/18 PRIMARY CARE PROVIDER: Allyn Heredia MD. ATTENDING PROVIDER: Tommy Cornejo MD* (dictated by KIA Henry) . PRIMARY DIAGNOSES: 1. Atrial fibrillation with rapid ventricular response. 2. Chronic obstructive pulmonary disease exacerbation. SECONDARY DIAGNOSES: 1. Chronic hypoxic respiratory failure for which he is on nocturnal home O2. 2. Hypertension. 3. History of ulcerative colitis, status post colostomy. 4. Obstructive sleep apnea, on CPAP. 5. Sick sinus syndrome with a pacemaker for atrial flutter, status post 2 ablations recently. STUDIES WHILE IN THE HOSPITAL: Transthoracic echocardiogram, conclusion: Mild concentric left ventricular hypertrophy is observed. Estimated ejection fraction is 55% to 60%, abnormal left ventricular diastolic filling is observed , consistent with impaired relaxation. The aortic valve leaflets are mildly thickened. There is flattened closure of the mitral valve leaflets. There is [id number] mitral regurgitation. There is [id number] tricuspid regurgitation. There is evidence of pulmonary hypertension, maybe underestimated similar to 08/18. DISCHARGE MEDICATIONS: Home Medications: 1. Demadex 10 to 20 mg p.r.n. swelling/edema. 2. Carafate 1 tab p.o. 4 times a day. 3. Incruse Ellipta 1 inhalation daily. 4. Xarelto 20 mg p.o. daily. 5. Klor-Con M10 10 mEq p.o. daily. 6. Protonix 40 mg p.o. daily. 7. Toprol-XL 100 mg p.o. t.i.d. 8. Mag oxide 400 mg p.o. daily. 9. Cozaar 50 mg p.o. daily. 10. Levalbuterol tartrate HFA 1 to 2 puffs p.o. q.6 hours p.r.n. 11. Cardizem 30 mg p.o. b.i.d. p.r.n. for heart rate above 120. 12. Symbicort 80/4.5, 2 inhalations b.i.d. 13. Amiodarone 200 mg p.o. daily. New Medications: 1. Prednisone 20 mg p.o. daily x3 days, then 10 mg p.o. daily x3 days, then discontinue. 2. Acetaminophen 650 p.o. q.4 hours p.r.n. HISTORY OF PRESENT ILLNESS/HOSPITAL COURSE: This is a 57-year-old man with a history of atrial fibrillation, who came to the ER with lightheadedness and heart palpitations and increased heart rate. He was found to be in AFib with RVR and he converted spontaneously to normal sinus rhythm while in the ER. Despite 2 ablations in the last year, the patient continues to have atrial fibrillation. His exacerbation of COPD warranted Vapotherm, which he was weaned off of throughout his stay at the hospital and he was placed on nasal cannula, which he was weaned off of by the time he left. By the last couple days of his stay, he was able to ambulate without oxygen. The patient remains on Xarelto for atrial flutter. It is recommended that he be reevaluated by his slasher at [place] for control of atrial fibrillation and then consider lung transplant due to COPD and chronic respiratory failure with hypoxia. Meanwhile, continue amiodarone, metoprolol, Cardizem, and Xarelto. It is recommended that the patient be put on BiPAP. 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 This is a summarized report of a complex medical history and hospital stay. For further details, please see the entire medical records. PHYSICAL EXAM: Appearance: The patient is resting comfortably and walking around the room. He appears to be in no acute distress. Vital Signs: Temperature 97.4, pulse 68, respiratory rate 16, oxygen saturation 98% on room air, blood pressure 145/92. HEENT: Visual key grossly intact. Extraocular movements intact. Sclerae without icterus. Hearing is grossly intact. Oral mucous membranes are moist. Neck: Full range of motion. Trachea midline. Respiratory: Symmetrical chest expansion and respiratory effort. Decreased breath sounds. No use of accessory muscles. Cardiovascular: Regular rate and rhythm. S1, S2 present. No murmurs, rubs, clicks, or gallops. Abdomen: Soft , nontender. Bowel sounds in all 4 quadrants. Extremities: Right lower extremity with 1+ pitting edema. Skin: No rashes or ulcers. Neuro: A and O x3. TIME SPENT: Approximately 40 minutes were spent on discharge; greater than half of that time was spent erme-[id number]-fane with the patient discussing discharge plans and instructions. KIA GUERRERO [id number]/[facility] #: [id number] [facility] MEDICAL CENTERKali
== END 2018-09-17 10:53 | disposition home or self-care (01) | DRG 201 ==
LOC: ED 09:57 → MEDTELE 12:35 → ICU 09-08 02:21 → MEDTELE 09-09 15:09
PROVIDERS: ADMIT Internal Medicine; ATTEND Student in an Organized Health Care Education/Training Program
DX: I48.92 Unspecified atrial flutter (principal); J96.21 Acute and chronic respiratory failure with hypoxia; J44.1 Chronic obstructive pulmonary disease with (acute) exacerbation; I48.91 Unspecified atrial fibrillation; I47.1 Supraventricular tachycardia; I10 Essential (primary) hypertension; G47.33 Obstructive sleep apnea (adult) (pediatric); R60.0 Localized edema; I27.20 Pulmonary hypertension, unspecified; I08.1 Rheumatic disorders of both mitral and tricuspid valves; E83.42 Hypomagnesemia; Z88.1 Allergy status to other antibiotic agents; Z86.19 Personal history of other infectious and parasitic diseases; Z87.891 Personal history of nicotine dependence; Z72.89 Other problems related to lifestyle; Z90.49 Acquired absence of other specified parts of digestive tract; Z93.3 Colostomy status; Z87.01 Personal history of pneumonia (recurrent); Z95.0 Presence of cardiac pacemaker; Z99.81 Dependence on supplemental oxygen; Z79.01 Long term (current) use of anticoagulants; Z79.51 Long term (current) use of inhaled steroids
CPT/HCPCS: 36415; 36600; 71045; 80048; 80053; 80307; 80320; 82550; 82553; 82803; 83735; 83880; 84100; 84443; 84484; 85025; 85027; 85379; 87070; 87205; 87899; 93005; 93306; 94640; 94762; 99285; A9270-GY; G0480; J0692; J2060; J2270; J2920; J3475

== ENCOUNTER 2018-09-20 08:57 | Emergency (ER) | payer OTHER ==
[2018-09-20] MEDS ORDERED: NS 0.9% 1000 ML* 1,000 ML IV ONE ×2 (09:07→10:01)
[2018-09-20] MEDS ORDERED: Adenosine* 3 MG/ML VIAL ONE (09:11)
--- NOTE | 2018-09-20 09:13 | ED ---
HPI Chest Pain - HPI Summary HPI Summary: A 57 y/o male brought in by ambulance presents to the ED c/o left sided chest pain since this weekend. Additionally, the patient c/o bilateral leg pain from the knees down to his ankles. In the ED room, the patient has a pulse of 165 BPM , O2 saturation of 99%, and blood pressure of 124/102. Currently, the patient is experiencing chest pain reaching 4-5/10, however, he noted that his legs are in much more pain reaching 7/10. As per EMS, the patient is coming from [place] from a follow-up appointment. It was found that the patient was still in rapid atrial fibrillation. He was seen at [facility] on Thursday (09/17/2018) and after cardiac ablation (2 prior), he was put on Cardizem (taking since Thursday), however, it is not working at this time. Vital are tachycardia and A-fib pulse of 166 BPM, BP of 132/98, respirations at 22, GCS: 15, non-stemi. Patient reports left-sided chest pain. No SOB, consistent with COPD. Lung sounds has crackles. No SVT. Weight is 146. As per patient, the patient, he was seen at [place] for a follow up appointment which is where the A-fib was found. He noted that he was going to get his prescription paperwork. He noted that he started on Cardizem at least a year ago and his pacemaker was place on October of 2017. He was admitted to [facility] some time for A-fib and COPD. Patient does breathing treatments at home and took his nebulizer this morning before follow up. No PMHx of CHF. Motor Vehicle Lecturer is Dr. Raffi Kennedy at [place]. Home Medications Medication Instructions Recorded Confirmed Type RX: Budesonide/Formote 80/4.5(NF) 2 inh INH BID 07/20/18 09/07/18 History [Symbicort 80/4.5 (NF)] RX: Magnesium Oxide [Mag-Oxide] 400 mg PO DAILY 07/20/18 09/07/18 History RX: Rivaroxaban TAB(*) [Xarelto 20 20 mg PO DAILY 07/20/18 09/07/18 History mg] RX: Umeclidinium [place] [Incruse 1 inh INH DAILY 07/20/18 09/07/18 History Ellipta] RX: Amiodarone TAB* [Cordarone 200 mg PO DAILY #30 tab 08/20/18 09/07/18 Rx Tab*] RX: Diltiazem TAB* [Cardizem 30 MG 30 mg PO BID PRN 09/07/18 09/07/18 History Tab*] RX: Levalbuterol Tartrate 1 - 2 puff PO Q6H PRN 09/07/18 09/07/18 History [Levalbuterol Tartrate Hfa] RX: Losartan Potassium [Cozaar] 50 mg PO DAILY 09/07/18 09/07/18 History RX: Metoprolol Succinate XL TAB* 100 mg PO TID 09/07/18 09/07/18 History [Toprol XL TAB*] RX: Pantoprazole TAB (NF) 40 mg PO DAILY 09/07/18 09/07/18 History [Protonix TAB (NF)] RX: Potassium Chloride [Klor-Con 10 meq PO DAILY 09/07/18 09/07/18 History M10] RX: Sucralfate TAB* [Carafate*] 1 tab PO QID 09/07/18 09/07/18 History RX: Torsemide TAB* [Demadex 20 MG*] 10 - 20 mg PO SEE INSTRUCTIONS 09/07/18 History RX: Acetaminophen TAB* [Tylenol 650 mg PO Q4H PRN tab 09/17/18 Rx TAB*] RX: predniSONE TAB* [Deltasone 10 20 mg PO DAILY 6 Days #9 tab 09/17/18 Rx MG TAB*] - History of Current Complaint Hx Obtained From: Patient, EMS Onset/Duration: Started Days Ago, Still Present Timing: Constant, Lasting Days Initial Severity: Moderate Pain Intensity: 5 Pain Scale Used: 0-10 Numeric Chest Pain Location: Left Anterior Chest Pain Radiates: Yes Chest Pain Radiates To:: Other - BILATERAL LEGS (KNEES TO ANKLES) Character: Other: - RAPID A-FIB Aggravating Factor(s): Nothing Alleviating Factor(s): Nothing Associated Signs and Symptoms: Positive: Chest Pain, Other: - RAPID A-FIB. Negative: Shortness of Breath, Fever - Additional Pertinent History Primary Care Physician: [id number] - Allergy/Home Medications Allergies/Adverse Reactions: Allergies Allergy/AdvReac Type Severity Reaction Status Date / Time ciprofloxacin Allergy Itching Verified 09/20/18 09:07 Home Medications: Home Medications Gabapentin CAP(*) [Neurontin 100 mg CAP(*)] 1 - 3 cap PO BEDTIME PRN 09/20/18 [ History Confirmed 09/20/18] PMH/Surg Hx/FS Hx/Imm Hx Endocrine/Hematology History: Reports: Hx Anticoagulant Therapy Denies: Hx Diabetes, Hx Systemic Lupus Erythematosus, Hx Thyroid Disease Cardiovascular History: Reports: Hx Atrial Fibrillation - no anticoagulants used currently, Hx Auto Implanted Cardiovert Defib, Hx Hypertension, Hx Syncope , Other Cardiovascular Problems/Disorders - A FIB Denies: Hx Congestive Heart Failure, Hx Deep Vein Thrombosis, Hx Myocardial Infarction, Hx Pacemaker/ICD Respiratory History: Reports: Hx Asthma, Hx Chronic Obstructive Pulmonary Disease (COPD), Other Respiratory Problems/Disorders - PNA Denies: Hx Lung Cancer, Hx Pneumonia, Hx Pulmonary Embolism GI History: Reports: Hx Gastrointestinal Bleed, Hx Obstructive Bowel, Hx Ileostomy - colostomy 2012, Other GI Disorders - colostomy, ulcerative colitis Denies: Hx Gall Bladder Disease, Hx Ulcer, Hx Urosepsis History: Denies: Hx Kidney Stones, Hx Renal Disease Musculoskeletal History: Reports: Hx Orthopedic Injury - surgeries in both knees Denies: Hx Arthritis, Hx Rheumatoid Arthritis, Hx Osteoporosis Sensory History: Reports: Hx Contacts or Glasses Denies: Hx Hearing Aid, Other Sensory Impairments Opthamlomology History: Reports: Hx Contacts or Glasses Denies: Other Sensory Impairments Neurological History: Denies: Hx Dementia, Hx Migraine, Hx Seizures, Hx Transient Ischemic Attacks (TIA) Psychiatric History: Denies: Hx Anxiety, Hx Depression, Hx Schizophrenia, Hx Bipolar Disorder - Cancer History Cancer Type, Location and Year: None reported Hx Chemotherapy: No - Surgical History Surgery Procedure, Year, and Place: COLECTOMY FOR ULCERATIVE COLITIS AT [facility] - has ostomy now 12/2012; bilat knees for cartilage. Tonsils Hx Anesthesia Reactions: No - Immunization History Date of Influenza Vaccine: 06/07/16 Infectious Disease History: Reports: Hx Hepatitis - hep c Denies: Hx Clostridium Difficile, Hx Human Immunodeficiency Virus (HIV), Hx of Known/Suspected MRSA, Hx Shingles, Hx Tuberculosis, Hx Known/Suspected VRE, Hx Known/Suspected VRSA, History Other Infectious Disease - Family History Known Family History: Positive: Hypertension, Respiratory Disease, Other - Pt adopted - Social History Alcohol Use: Rare Alcohol Amount: was daily Hx Substance Use: No Substance Use Type: Reports: None Hx Tobacco Use: Yes Smoking Status (MU): Former Smoker Type: Cigarettes Amount Used/How Often: 1/2 ppd Length of Time of Smoking/Using Tobacco: 40 years Have You Smoked in the Last Year: Yes Review of Systems Negative: Fever Positive: Chest Pain, Other - POSITIVE: RAPID A-FIB Negative: Shortness Of Breath Positive: Other - POSITIVE: BILATERAL LEG PAIN FROM KNEES TO ANKLES All Other Systems Reviewed And Are Negative: Yes Physical Exam - Summary Physical Exam Summary: GENERAL: Patient is a well-developed and nourished male who is lying comfortable in the stretcher. Patient is not in any acute respiratory distress. HEAD AND FACE: Normocephalic EYES: PERRLA, EOMI x 2. EARS: Hearing grossly intact. MOUTH: Oropharynx within normal limits. NECK: Supple, trachea is midline, no adenopathy, no JVD, no carotid bruit. CHEST: Symmetric, no tenderness at palpation LUNGS: Clear to auscultation bilaterally. Wheezing and slight crackles present diffusely. CVS: S1 and S2 present, no murmurs or gallops appreciated. Fast, irregular irregular rhythm. ABDOMEN: Soft, non-tender. Bowel sounds are normal. No abdominal abnormal pulsations. EXTREMITIES: Full ROM in all major joints, no edema, no cyanosis or clubbing. NEURO: Alert and oriented x 3. No acute neurological deficits. Speech is normal and follows commands. SKIN: Dry and warm Triage Information Reviewed: Yes Vital Signs Reviewed: Yes Diagnostics - Laboratory Result Diagrams: 09/20/18 09:27 09/20/18 09:27 Lab Statement: Any lab studies that have been ordered have been reviewed, and results considered in the medical decision making process. - Radiology CXR Radiology Interpretation Completed By: Radiologist Summary of Radiographic Findings: Stigmata of obstructive lung disease. No acute pulmonary or cardiac process evident. ED PHYSICIAN REVIEWED THIS RADIOLOGY REPORT. - EKG 0905 Cardiac Rate: Other Rate - SVT 168 BPM EKG Rhythm: SVT - 168 BPM Summary of EKG Findings: SOME ASSOCIATED ST DEPRESSION. Re-Evaluation - Re-Evaluation First Eval Re-Evaluation Time: 10:15 Change: Unchanged Comment: DISCUSSED RESULTS/PLAN WITH PATIENT. Second Eval Re-Evaluation Time: 11:03 Change: Unchanged Comment: SPOKE TO DR. HOYOS WHO RECOMMENDED TRANSFER TO [facility]. Third Eval Re-Evaluation Time: 12:40 Change: Unchanged Comment: CHARGE NURSED CALLED [facility] TO INQUIRE ABOUT TRANSFER. Chest Pain Course/Dx - Course Course Of Treatment: A 57 y/o male brought in by ambulance presents to the ED c/ o left sided chest pain since this weekend. Additionally, the patient c/o bilateral leg pain from the knees down to his ankles. In the ED room, the patient has a pulse of 165 BPM, O2 saturation of 99%, and blood pressure of 124/ 102. Currently, the patient is experiencing chest pain reaching 4-5/10, however , he noted that his legs are in much more pain reaching 7/10. As per EMS, the patient is coming from [place] from a follow-up appointment. It was found that the patient was still in rapid atrial fibrillation. He was seen at [facility] on Thursday (09/17/2018) and after cardiac ablation, he was put on Cardizem (taking since Thursday), however, it is not working at this time. Physical examination findings significant for fast, irregular irregular rhythm and wheezing and slight crackles present diffusely. An EKG revealed SVT at [address] some associated ST depression. A CXR revealed stigmata of obstructive lung disease. No acute pulmonary or cardiac process evident. Hematology, coagulation, Chemistry, and toxicology screens were found. No significant laboratory abnormalities were found except elevated glucose at 109 mg/dL, elevated lactic acid at 2.1 mmol/L, and elevated Creatinine at 1.30 mg/dL. Troponin I was 0.04. In the ED course, the patient received Diltiazem, Adenosine, and IV fluids. Patient care was discussed with car conditioner, Dr. Vernon Hoyos, who recommends Cardizem drip. Patient care was also discussed with hospitalist, Dr. Juanita Gamble, who accepts patient for admission. Case was discussed with hospitalist. I discussed results with patient. The patient agrees with this admission plan. Patient will be admitted with a diagnosis of A-fib and RVR. Patient is agreeable with this plan. 1103 - Patient care was discussed with Dr. Vernon Hoyos who recommends patient be transferred to [facility]. 1117 - Spoke to Motor Vehicle Lecturer driver's education instructor at [facility] who recommended that the patient be put on Digoxin (2.5 mg), if the HR improves, the patient should be admitted to [facility], if not, he will accept the patient for transfer to [facility]. He will call back soon. - Diagnoses Provider Diagnoses: Atrial fibrillation with RVR - Provider Notifications Discussed Care Of Patient With: Vernon Hoyos Time Discussed With Above Provider: 09:25 Instructed by Provider To: Other - RECOMMENDED TO DO CARDIZEEvelyn GALLEGO. 1010 - DR. TURNER ACCEPTS PATIENT FOR ADMISSION. 1103 - DR. HOYOS RECOMMENDS PATIENT BE TRANSFERRED TO [facility]. 1117 - SPOKE TO MINE CAPTAIN ASW SPECIALIST AT [facility] WHO RECOMMENDED THAT PATIENT BE PUT ON DIGOXIN (2.5 MG), IF THE HR IMPROVES, PATIENT SHOULD BE ADMITTED TO [facility], IF NOT, HE WILL ACCEPT PATIENT FOR TRANSFER TO [facility]. HE WILL CALL BACK SOON. - Critical Care Time Critical Care Time: 30-74 min Discharge - Sign-Out/Discharge Documenting (check all that apply): Patient Departure - Discharge Plan Condition: Stable Disposition: TRANS HIGHER LVL OF CARE FAC Referrals: Allyn Heredia MD [Primary Care Provider] - - Billing Disposition and Condition Condition: STABLE Disposition: Trans Higher Lvl of Care Fac - Attestation Statements Document Initiated by Ej: Yes Documenting Lyibe: Mega Rdz Provider For Whom Ej is Documenting (Include Credential): Eugenia Cruz MD Scribe Attestation: Mega Rosenberg scribed for Eugenia Cruz MD on 09/20/18 at 1356. Scribe Documentation Reviewed: Yes Provider Attestation: The documentation as recorded by the Mega rangel accurately reflects the service I personally performed and the decisions made by me, Eugenia Cruz MD Status of Scribe Document: Viewed
[2018-09-20] MEDS ORDERED: Diltiazem IV VIAL* 125 MG in NS 0.9% 100 ML* 100 ML IVPB ONE (09:26)
[2018-09-20] MEDS ORDERED: Diltiazem IV* 5 MG/ML 5 ML VIAL (for loading dose/IV Push) (25 MG) IV SLOW PU ONE (09:28)
[2018-09-20 09:36] LABS: Hematocrit 42 % (42-52); Hemoglobin 13.8 g/dl (14.0-18.0); Mean Corpuscular HGB Conc 33 g/dl (31-36); Mean Corpuscular Hemoglobin 33 pg (27-31); Mean Corpuscular Volume 100 fL (80-94); Mean Platelet Volume 8.4 fL (7.4-10.4); Platelet Count 162 10^3/ul (150-450); Red Blood Count 4.21 10^6/ul (4.00-5.40); Red Cell Distribution Width 15 % (10.5-15); White Blood Count 23.1 10^3/ul (3.5-10.8)
[2018-09-20 09:50] LABS: INR 2.81 (0.77-1.02)
[2018-09-20 09:59] LABS: ALT 97 U/L (7-52); AST 40 U/L (13-39); Albumin/Globulin Ratio 1.9 (1-3); Alkaline Phosphatase 72 U/L (34-104); Anion Gap 7 mmol/L (2-11); BUN/Creatinine Ratio 26.2 (8-20); Blood Urea Nitrogen 34 mg/dL (6-24); CO2 Carbon Dioxide 30 mmol/L (22-32); Calcium 9.2 mg/dL (8.6-10.3); Chloride 102 mmol/L (101-111); EGFR Non-African American 56.9 (>60); Globulin 2.1 g/dL (2-4); Glucose 109 mg/dL (70-100); Magnesium 1.5 mg/dL (1.9-2.7); Potassium 4.6 mmol/L (3.5-5.0); Sodium 139 mmol/L (135-145); Total Protein 6.1 g/dL (6.4-8.9)
[2018-09-20 10:03] LABS: ABS Basophils 0.2 10^3/ul (0-0.2); ABS Eosinophils 0.1 10^3/ul (0-0.6); ABS Lymphocytes 0.9 10^3/ul (1.0-4.8); ABS Monocytes 1.7 10^3/ul (0-0.8); ABS Neutrophils 20.2 10^3/ul (1.5-7.7)
[2018-09-20 10:05] LABS: Immature Granulocytes 1 % (0-9); Lymphocytes % 4 %; Metamyelocytes % 1 % (0-2); Monocytes % 6 %; Neutrophil % 89 %
[2018-09-20 10:06] LABS: ABS Neutrophils 20.8 10^3/ul (1.5-7.7)
[2018-09-20 10:14] LABS: Barbiturates Urine Screen None Detected (None Detect); Benzodiazepine Urine Screen None Detected (None Detect); Urine Cannabinoids Screen None Detected (None Detect)
[2018-09-20 10:23] LABS: Alcohol < 10 mg/dL (<10); Digoxin < 0.3 ng/ml (0.8-2.0)
[2018-09-20 10:39] LABS: TSH (Thyroid Stimulating Horm) 1.47 mcIU/mL (0.34-5.60)
[2018-09-20] MEDS ORDERED: Magnesium Sulf 4 GM/100 ML IV* 4,000 MG/100 ML BAG IVPB ONE (10:46)
[2018-09-20 11:04] LABS: C Reactive Protein 2.63 mg/L (<8.01)
[2018-09-20] MEDS ORDERED: Digoxin IV* 0.5 MG/2 ML AMP (0.25 MG/ML) IV SLOW PU ONE (11:23)
[2018-09-20 11:46] LABS: Urine Appearance Clear; Urine Bacteria Absent (Absent); Urine Bilirubin Negative (Negative); Urine Blood 1+ (Negative); Urine Color Straw; Urine Glucose Negative (Negative); Urine Ketones Negative (Negative); Urine Nitrite Negative (Negative); Urine Protein Negative (Negative); Urine Red Blood Cell Absent (Absent); Urine Specific Gravity 1.008 (1.010-1.030); Urine Urobilinogen Negative (Negative); Urine White Blood Cell Absent (Absent)
[2018-09-20] MEDS ORDERED: oxyCODONE/Acetamin 5/325 MG* TAB PO ONE (12:21)
[2018-09-20 14:09] VITALS: BP 118/82
--- NOTE | 2018-09-20 18:43 | CONS ---
CC: Dr. Heredia; Dr. Kennedy.* HOSPITAL MEDICINE CONSULTATION: DATE OF CONSULT: 09/20/18 - EMERGENCY DEPT PRIMARY CARE PHYSICIAN: Dr. Heredia. DIRECTOR OF STRATEGIC COMMUNICATIONS: Dr. Kennedy. ATTENDING PHYSICIAN: Dr. Juanita Adrian (dictation provided by Jodie German NP). REASON FOR CONSULTATION: Question regarding need for admission for atrial fibrillation with RVR. HISTORY OF PRESENT ILLNESS: Mr. Yen is a 57-year-old male with a past medical history of [id number] AFib, RVR, despite ablations x2 with the most recent one being 2 weeks ago at [facility]. The patient was just discharged from our hospital on Thursday after being treated for AFib, RVR, and a COPD exacerbation. The patient states he was feeling reasonably well at that point; however, as of yesterday, he began to feel unwell. He does not feel palpitations when his heart rate is uncontrolled, but he does feel unwell in those times. He states he went out to go grocery shopping and felt that he "spaced out" for several minutes while there. He also developed pain in both of his lower extremities. He had a scheduled follow up with Dr. Heredia today, and there at the office, he was noted to have a heart rate into 160s. This was discussed with his medical clerical assistant, Dr. Kennedy, and the plan was to give him additional doses of diltiazem to see if his rate could be controlled; however, after an hour or more his heart remained in the 160s and therefore he was transitioned to the emergency room for evaluation. In the emergency room, Mr. Yen continues to have a heart rate in the 160s. I note that his WBC is 23.1, but he has had a chronically elevated WBC for some time and has been on intermittent steroids. He also has low magnesium at 1.5 but his potassium is 4.6; his troponin is 0.04. The patient has given diltiazem bolus and started on diltiazem infusion, but his heart rate remains in the 160s. PAST MEDICAL HISTORY: 1. AFib, RVR, status post 2 ablations. 2. Chronic hypoxic respiratory failure on home O2. 3. Hypertension. 4. History of ulcerative colitis, status post colostomy. 5. Obstructive sleep apnea, on CPAP. 6. COPD. 7. Sick sinus syndrome with pacemaker. MEDICATIONS OUTPATIENT: 1. Torsemide 10 to 20 mg p.o. as instructed. 2. Gabapentin 100 to 300 mg p.o. bedtime p.r.n. 3. Sucralfate 1 tab p.o. q.i.d. 4. Symbicort 80/4.5, 2 puffs inhaled b.i.d. 5. Acetaminophen 650 mg p.o. q.4 hours p.r.n. 6. Rivaroxaban 20 mg p.o. daily. 7. Potassium chloride 10 mEq p.o. daily. 8. Pantoprazole 40 mg p.o. daily. 9. Metoprolol succinate 100 mg p.o. t.i.d. 10. Magnesium oxide 400 mg p.o. daily. 11. Incruse Ellipta 1 inhalation daily. 12. Losartan 50 mg p.o. daily level. 13. Levalbuterol 1 to 2 puffs p.o. q.6 hours p.r.n. 14. Diltiazem 30 mg p.o. b.i.d. p.r.n. ALLERGIES: CIPROFLOXACIN. FAMILY HISTORY: Reviewed, noncontributory. SOCIAL HISTORY: No report of current alcohol use, although he had report of EtOH abuse in the past. He quit smoking 2 years ago. He states that his emergent contact is his friend, Julia Metzgre. REVIEW OF SYSTEMS: A 14 point review of systems was completed with Mr. Yen and all those not mentioned above were negative. PHYSICAL EXAM: Vital Signs: Temperature 96.8, pulse rate 155, respiratory rate 20, O2 saturation 95%, on room air, blood pressure 124/92. General: Mr. Yen is sitting on the edge of bed. He is in no acute distress. Neuro: He is alert. He is oriented x3. Moves all extremities equally. There is no facial asymmetry or focal weakness. Extraocular movements are intact. Heart: S1, S2. No murmur, rub or gallop, and irregular and rapid. Lungs are clear to auscultation bilaterally with no accessory muscle use and good aeration. Abdomen is soft, nontender with bowel sounds positive x4. Extremities: No cyanosis or edema. Skin is intact. DIAGNOSTIC STUDIES/LAB DATA: WBC 23.1, hemoglobin 13.8, hematocrit 42, platelet count 162. INR 2.81. Sodium 139, potassium 4.6, chloride 102, sodium bicarbonate 30, BUN 34, creatinine 1.30, glucose 109, lactic acid 2.1, magnesium 1.5. Troponin 0.04. Urine shows no evidence of infection. Toxicology screen is negative. Chest x-ray shows stigmata of chronic pulmonary disease only. ASSESSMENT AND PLAN: Mr. Yen is a 57-year-old male with a difficult-to- control atrial fibrillation, now returning with rapid atrial fibrillation. I reviewed the case with Dr. Grubbs from cardiology. I reviewed the fact that the patient is on a diltiazem drip now and has had ablations x2; most recently with Dr. Dutta and [facility], and despite this, has a heart rate in the 160s. I also made a note of the fact that the patient has been admitted to our hospital 5 times in the past since 07/22/18, and many of those were for atrial fibrillation with RVR. Dr. Grubbs recommends that the patient be transferred directly to [facility] from the emergency department, as he feels that the patient will need interventions not available at our hospital, including possible ablation to control his atrial fibrillation given his history. The patient is stable. I reviewed the case in terms of having a stable blood pressure and maintaining appropriately. I have discussed the case at length with Dr. Cruz from the emergency department as she will be facilitating transfer. In the meantime, I have recommended that the diltiazem drip be maximized. I have also agreed with Dr. Cruz that patient might benefit from digoxin and that he should be given supplementation with magnesium intravenously , which I have ordered for 4 g. TIME SPENT: Approximately 60 minutes were spent on the consultation of this patient, more than half time spent with the patient at the bedside reviewing the events leading up to this hospitalization, performing the physical examination, and reviewing the plan of care. JODIE GERMAN NP [id number]/[facility] #: [id number] ELIUD
== END 2018-09-20 14:08 | disposition short-term general hospital (02) ==
LOC: ED 08:57
DX: I48.91 Unspecified atrial fibrillation (principal); B19.20 Unspecified viral hepatitis C without hepatic coma; Z79.01 Long term (current) use of anticoagulants; J44.9 Chronic obstructive pulmonary disease, unspecified; Z87.891 Personal history of nicotine dependence; I10 Essential (primary) hypertension; G47.33 Obstructive sleep apnea (adult) (pediatric); I49.5 Sick sinus syndrome; Z95.0 Presence of cardiac pacemaker; J96.11 Chronic respiratory failure with hypoxia; E83.42 Hypomagnesemia
CPT/HCPCS: 36415; 71045; 80053; 80162; 80307; 80320; 81003; 81015; 83605; 83735; 83880; 84443; 84484; 85025; 85610; 85730; 86140; 87040; 93005; 96361; 96374; 96375; 99285; A9270-GY; G0480; J0153; J1160; J3475

== ENCOUNTER 2018-11-03 10:43 | Inpatient (IN) | payer OTHER ==
[2018-11-03] MEDS ORDERED: Dexamethasone IV* 4 MG/ML 1 ML (4 MG) IV SLOW PU ONE (10:49)
[2018-11-03] MEDS ORDERED: Magnesium Sulfate 2 GM IV* 2 GM/50 ML BAG IVPB ONE (10:50)
[2018-11-03] MEDS ORDERED: NS 0.9% 1000 ML** 1,000 ML IV ONE (10:51)
[2018-11-03] MEDS ORDERED: Albuterol/Ipratropium NEB.SOL* Albuterol 2.5 MG/Ipratropium 0.5 MG 3 ML INH ONE ×2 (10:59→11:49)
[2018-11-03 11:10] LABS: Hematocrit 39 % (42-52); Hemoglobin 12.6 g/dl (14.0-18.0); Mean Corpuscular HGB Conc 32 g/dl (31-36); Mean Corpuscular Hemoglobin 33 pg (27-31); Mean Corpuscular Volume 103 fL (80-94); Mean Platelet Volume 7.4 fL (7.4-10.4); Platelet Count 324 10^3/ul (150-450); Red Blood Count 3.78 10^6/ul (4.00-5.40); Red Cell Distribution Width 17 % (10.5-15); White Blood Count 19.4 10^3/ul (3.5-10.8)
[2018-11-03 11:27] LABS: Albumin 4.1 g/dL (3.2-5.2); Albumin/Globulin Ratio 1.6 (1-3); BUN/Creatinine Ratio 7.4 (8-20); C Reactive Protein 2.17 mg/L (<8.01); Calcium 9.1 mg/dL (8.6-10.3); EGFR African American 100.1 (>60); EGFR Non-African American 82.7 (>60); Globulin 2.5 g/dL (2-4); Potassium 4.3 mmol/L (3.5-5.0); Total Bilirubin 0.4 mg/dL (0.2-1.0); Total Protein 6.6 g/dL (6.4-8.9)
[2018-11-03 11:30] LABS: Troponin I 0.01 ng/mL (<0.04)
[2018-11-03 11:32] LABS: CKMB ng/mL 4.3 ng/mL (0.6-6.3)
[2018-11-03 11:34] LABS: ABS Basophils 0.2 10^3/ul (0-0.2); ABS Eosinophils 0.2 10^3/ul (0-0.6); ABS Lymphocytes 2.9 10^3/ul (1.0-4.8); ABS Monocytes 2.6 10^3/ul (0-0.8); ABS Neutrophils 13.5 10^3/ul (1.5-7.7); ABS Nucleated RBC 0 10^3/ul; Eosinophil % 0.9 %; Nucleated Red Blood Cells % 0.2
[2018-11-03] MEDS ORDERED: Piperacillin/Tazobac ADVAN(*) 3.375 GM in NS 0.9% 100 ML* 100 ML IVPB ONE (11:53)
[2018-11-03] MEDS ORDERED: Azithromycin IV(*) 500 MG in NS 0.9% 250 ML* 250 ML IVPB ONE (11:54)
--- NOTE | 2018-11-03 12:25 | HP ---
History of Present Illness - History of Present Illness Reason for Visit: Dyspnea History of Present Illness: 57 yo M with PMH including Atrial fib and flutter with two prior ablations, pulmonary HTN, COPD and chronic hypoxic respiratory failure, and YAMEL on CPAP. He has been admitted multiple times previously for COPD exacerbations, though never required intubation. He presents to the ED on 11/03 with acute shortness of breath. On evaluation in the ED he was found to have an O2 sat of 89 on 6L NC. He was tried on vapotherm with minimal improvement in respiratory effort thus he was placed on BiPAP. He has subsequently stabilized and O2 sat now 98% on FIO2 50%. Increased work of breathing also improved. CXR shows bilateral infiltrates concerning for community acquired pneumonia. Started on broad spectrum antibiotics, as well as steriods and duonebs for COPD exacerbation. Admitted to ICU for further stabilization and care. - Past Medical History Cardiac: AFIB - two prior ablations, CHF - chronic diastolic, HTN, Pulmonary hypertension, Other - sick sinus syndrome Pulmonary: COPD - on home O2, Other - YAMEL on CPAP Gastrointestinal: Inflam bowel disease - ulcerative colitis - Past Surgical History Past Surgical History: Other - colectomy, pacemaker - Past Social History Smoke: Quit - 3 yr ago Alcohol: None - prior history Review of Systems - Review of Systems Constitutional: Negative: Fever, Chills, Sweats, Weakness, Malaise, Other Eyes: Negative: Pain, Vision Change, Conjunctivae Inflammation, Eyelid Inflammation, Redness, Other ENT: Negative: Ear Pain, Ear Discharge, Nose Pain, Nose Discharge, Nose Congestion, Mouth Pain, Mouth Swelling, Throat Pain, Throat Swelling, Other Respiratory: Positive: Cough, Shortness of Breath, Sputum Cardiovascular: Negative: Chest Pain, Palpitations, Orthopnea, Paroxysmal Noc. Dyspnea, Edema, Light Headedness, Other Gastrointestinal: Negative: Nausea, Vomiting, Abdominal Pain, Diarrhea, Constipation, Melena, Hematochezia, Other Genitourinary: Negative: Dysuria, Frequency, Incontinence, Hematuria, Retention , Other Musculoskeletal: Negative: Neck Pain, Shoulder Pain, Arm Pain, Back Pain, Hand Pain, Leg Pain, Foot Pain, Other Skin: Negative: Rash, Lesions, Emil, Bruising, Other Neurological: Negative: Weakness, Numbness, Incoordination, Change in Speech, Confusion, Seizures, Other - Medications/Allergies Allergies/Adverse Reactions: Allergies Allergy/AdvReac Type Severity Reaction Status Date / Time ciprofloxacin Allergy Itching Verified 09/20/18 09:07 Medications: Current Medications Piperacillin Sod/Tazobactam (Sod 3.375 gm/ Sodium Chloride) 100 mls @ 200 mls/ hr IVPB ED ONCE ONE Stop: 11/03/18 12:22 Last Admin: 11/03/18 12:12 Dose: 200 mls/hr Azithromycin 500 mg/ Sodium (Chloride) 250 mls @ 250 mls/hr IVPB ED ONCE ONE Stop: 11/03/18 12:53 Last Admin: 11/03/18 12:13 Dose: 250 mls/hr Exam - Exam Vital Signs: Vital Signs (72 hours) 11/03/18 11/03/18 11/03/18 10:45 10:47 10:52 Temperature 96.9 F Pulse Rate 83 87 Respiratory 35 21 27 Rate Blood Pressure 180/100 180/100 (mmHg) O2 Sat by Pulse 89 95 Oximetry 11/03/18 11/03/18 11/03/18 10:58 11:00 11:03 Temperature Pulse Rate 87 85 81 Respiratory 22 22 26 Rate Blood Pressure 171/89 (mmHg) O2 Sat by Pulse 97 97 98 Oximetry 11/03/18 11/03/18 11/03/18 11:07 11:10 11:17 Temperature Pulse Rate 84 82 Respiratory 34 28 Rate Blood Pressure 174/97 (mmHg) O2 Sat by Pulse 99 98 99 Oximetry 11/03/18 11/03/18 11/03/18 11:27 11:36 11:48 Temperature Pulse Rate 80 78 76 Respiratory 20 19 18 Rate Blood Pressure 158/130 167/88 142/87 (mmHg) O2 Sat by Pulse 99 99 98 Oximetry 11/03/18 11/03/18 11/03/18 11:57 12:00 12:07 Temperature Pulse Rate 68 72 71 Respiratory 18 21 23 Rate Blood Pressure 132/90 109/75 (mmHg) O2 Sat by Pulse 99 100 99 Oximetry 11/03/18 11/03/18 12:08 12:11 Temperature Pulse Rate 82 82 Respiratory 26 28 Rate Blood Pressure (mmHg) O2 Sat by Pulse 98 98 Oximetry General: Alert, Oriented x3, Cooperative, No acute distress HEENT: Atraumatic, PERRLA, EOMI Lungs: Other - coarse bilaterally, scattered rhonci Cardiovascular: Regular rate, Normal S1, Normal S2, No murmurs Abdomen: Soft, No tenderness Extremities: No edema Skin: No significant lesion Neurological: Normal speech Psych/Mental Status: Mental status NL, Mood NL Assessment/Plan - Assessment/Plan Assessment: 57 yo M with COPD, pulmonary HTN and afib, on home O2 presents to the ED on with COPD exacerbation and pneumonia requiring BiPAP to maintain adequate oxygenation. Plan: Cardiovascular: (1) Chronic atrial fibrillation and flutter; (2) hx of sick sinus syndrome with pacemaker in situ; (3) Pulmonary HTN; (4) HTN -- HR 68-83 -- SBP 109-180 -- Telemetry -- TTE, 09/15/2018: mild LVH EF 55-60% abnormal left ventricular diastolic filling trace to mild mitral regurgitation trace to mild tricsupid regurg pulmonary HTN -- cardiac enzymes MB 4.3 Trop 0.01 BNP 370, follow trend -- resume home meds when able to tolerate break from BiPAP -- PRN Hydralazine Home meds: Rivaroxaban, Diltiazem PRN, metoprolol, torsemide PRN, losartan Pulmonary: (1) Acute on chronic hypoxic and hypercarbic respiratory failure; (2 ) COPD Exacerbation; (3) bilateral community acquired pneumonia; (4) YAMEL on CPAP -- RR 18-35 -- sats 89-100 on BiPAP -- wean BiPAP as able -- CXR: bilateral pulmonary infiltrates most prominent in right midlung zone. also COPD and emphysema -- ABG: pH 7.15; pCO2 63; pO2 103; HCO3 18.8; BE -7.8; %O2 Sat 98.3. Home meds: Umeclidium [place], Symbicort, Levalbuterol Gastrointestinal: (1) minimally elevated LFTs; (2) hx of ulcerative colitis s/ p colectomy -- LFTs Tbili 0.40 ALK 99 AST 55 ALT 56 -- diet: NPO until weaned from BiPAP -- bowel regimen: None -- ulcer prophylaxis: Protonix Home meds: Protonix, Sucralfate Endocrine: No acute issues -- monitor BGs Home meds: None Renal: (1) Mild hyponatremia -- I/O:not recorded -- Cr 0.94 -- Lytes Na 134, follow trend K 4.3 Ca 9.1 Mag ordered with AM labs Phos ordered wtih AM labs -- IVF: NS @ 75 ml/hr Home meds: Potassium chloride, torsemide PRN, mag ox Infectious disease: (1) Sepsis; (2) Bilateral pneumonia, community acquired -- Tmax 96.9 -- WBC 19.4 -- Micro 11/03 UA ordered flu ordered sputum ordered blood ordered -- ABX Rocephin Azithromycin Home meds: None Neurologic: No acute issues Home meds: Tylenol, gabapentin Hematological: No acute issues -- Hgb 12.6 -- Plt 324 -- DVT prophylaxis: SQ Lovenox -- resume home rivaroxaban when able to tolerate break from BiPAP Home meds: Rivaroxaban Metabolic: (1) Lactic acidosis -- Lactic acid 3.5, hydrate, follow trend Home meds: None Deep vein thrombosis prophylaxis: SQ Lovenox Dietary: Protonix Condition: critical Prognosis: good Code status: full Disposition: continue ICU Care Cumulative time spent in the care of this patient (excluding any procedure time) : at least 55 minutes. Patient care included clinical interview (with patient and/or family), bedside exam of the patient, review of labs, x-rays, and other ancillary data, coordination of (respiratory, nursing care, review of patient's records, discussion regarding patients management with involved consultants, primary physician, pharmacists, and other healthcare personnel (dietary, case management , physical/occupational therapy etc.)
--- NOTE | 2018-11-03 12:35 | ED ---
Shortness of Breath - HPI Summary HPI Summary: Patient is a 57-year-old male presenting to the ED by EMS with respiratory distress. Patient is tripoding with an increased work of breathing on arrival. EMS states he has been having worsening shortness of breath over the past week. History of COPD and asthma. Also history of atrial fibrillation with RVR. History of hypertension. Unsure if he is taking his medications. Patient is unable to answer questions appropriately due to respiratory distress. He is currently a level V caveat. History obtained by EMS and records. - History of Current Complaint Chief Complaint: EDShortnessOfBreath Time Seen by Provider: 11/03/18 10:45 Hx Obtained From: Patient Onset/Duration: Sudden Onset Timing: Constant Current Severity: Mild Dyspnea At: Rest Alleviating Factors: Bronchodilators, Upright Position Associated Signs & Symptoms: Cough (Nonproductive) - Risk Factors Pulmonary Embolism: Smoking Cardiac: Negative Pseudomonas: Chronic Lung Disease - Allergy/Home Medications Allergies/Adverse Reactions: Allergies Allergy/AdvReac Type Severity Reaction Status Date / Time ciprofloxacin Allergy Itching Verified 09/20/18 09:07 Home Medications: Home Medications Losartan TAB* [Cozaar TAB*] 50 mg PO DAILY 11/03/18 [History Confirmed 11/03/18] Magnesium Oxide TAB* [MagOx 400 TAB*] 400 mg PO DAILY 11/03/18 [History Confirmed 11/03/18] PMH/Surg Hx/FS Hx/Imm Hx Previously Healthy: Yes Endocrine/Hematology History: Reports: Hx Anticoagulant Therapy Denies: Hx Diabetes, Hx Systemic Lupus Erythematosus, Hx Thyroid Disease Cardiovascular History: Reports: Hx Atrial Fibrillation - no anticoagulants used currently, Hx Auto Implanted Cardiovert Defib, Hx Hypertension, Hx Syncope , Other Cardiovascular Problems/Disorders - A FIB Denies: Hx Congestive Heart Failure, Hx Deep Vein Thrombosis, Hx Myocardial Infarction, Hx Pacemaker/ICD Respiratory History: Reports: Hx Asthma, Hx Chronic Obstructive Pulmonary Disease (COPD), Other Respiratory Problems/Disorders - PNA Denies: Hx Lung Cancer, Hx Pneumonia, Hx Pulmonary Embolism GI History: Reports: Hx Gastrointestinal Bleed, Hx Obstructive Bowel, Hx Ileostomy - colostomy 2012, Other GI Disorders - colostomy, ulcerative colitis Denies: Hx Gall Bladder Disease, Hx Ulcer, Hx Urosepsis History: Denies: Hx Kidney Stones, Hx Renal Disease Musculoskeletal History: Reports: Hx Orthopedic Injury - surgeries in both knees Denies: Hx Arthritis, Hx Rheumatoid Arthritis, Hx Osteoporosis Sensory History: Reports: Hx Contacts or Glasses Denies: Hx Hearing Aid, Other Sensory Impairments Opthamlomology History: Reports: Hx Contacts or Glasses Denies: Other Sensory Impairments Neurological History: Denies: Hx Dementia, Hx Migraine, Hx Seizures, Hx Transient Ischemic Attacks (TIA) Psychiatric History: Denies: Hx Anxiety, Hx Depression, Hx Schizophrenia, Hx Bipolar Disorder - Cancer History Cancer Type, Location and Year: None reported Hx Chemotherapy: No - Surgical History Surgery Procedure, Year, and Place: COLECTOMY FOR ULCERATIVE COLITIS AT [facility] - has ostomy now 12/2012; bilat knees for cartilage. Tonsils Hx Anesthesia Reactions: No - Immunization History Date of Influenza Vaccine: 06/07/16 Infectious Disease History: No Infectious Disease History: Reports: Hx Hepatitis - hep c Denies: Hx Clostridium Difficile, Hx Human Immunodeficiency Virus (HIV), Hx of Known/Suspected MRSA, Hx Shingles, Hx Tuberculosis, Hx Known/Suspected VRE, Hx Known/Suspected VRSA, History Other Infectious Disease, Traveled Outside the [place] in Last 30 Days - Family History Known Family History: Positive: Hypertension, Respiratory Disease, Other - Pt adopted - Social History Occupation: Employed Part-time Lives: With Family Alcohol Use: Rare Alcohol Amount: was daily Hx Substance Use: No Substance Use Type: Reports: None Hx Tobacco Use: Yes Smoking Status (MU): Former Smoker Type: Cigarettes Amount Used/How Often: 1/2 ppd Length of Time of Smoking/Using Tobacco: 40 years Have You Smoked in the Last Year: Yes Review of Systems Positive: Chills, Fatigue, Skin Diaphoresis. Negative: Fever Negative: Epistaxis, Dental Pain Negative: Palpitations, Chest Pain Positive: Shortness Of Breath, Cough Negative: Abdominal Pain, Vomiting, Diarrhea, Nausea Genitourinary: Negative Positive: no symptoms reported, see HPI Negative: Arthralgia, Myalgia Skin: Negative All Other Systems Reviewed And Are Negative: Yes Physical Exam Triage Information Reviewed: Yes Vital Signs On Initial Exam: Initial Vitals Temp Pulse Resp BP Pulse Ox 96.9 F 83 35 180/100 89 11/03/18 10:45 11/03/18 10:45 11/03/18 10:45 11/03/18 10:45 11/03/18 10:45 Vital Signs Reviewed: Yes Appearance: Positive: Ill-Appearing, Pain Distress, Thin, Cachectic Skin: Positive: Diaphoretic Head/Face: Positive: Normal Head/Face Inspection Eyes: Positive: EOMI, WALLACE, Conjunctiva Clear ENT: Negative: Pharynx normal, Sinus tenderness Neck: Negative: Supple, Nontender, No Lymphadenopathy Respiratory/Lung Sounds: Positive: Wheezes, Unable to speak in full sentences, Fatigue. Negative: Stridor Cardiovascular: Positive: Tachycardia. Negative: Leg Edema Left, Leg Edema Right Abdomen Description: Positive: Other: - Colostomy Bowel Sounds: Positive: Present Musculoskeletal: Positive: Strength/ROM Intact Neurological: Positive: Other - Unable to speak in sentences Psychiatric: Positive: Normal, Affect/Mood Appropriate Diagnostics - Vital Signs Vital Signs Temp Pulse Resp BP Pulse Ox 11/03/18 12:11 82 28 98 11/03/18 12:08 82 26 98 11/03/18 12:07 71 23 109/75 99 11/03/18 12:00 72 21 100 11/03/18 11:57 68 18 132/90 99 11/03/18 11:48 76 18 142/87 98 11/03/18 11:36 78 19 167/88 99 11/03/18 11:27 80 20 158/130 99 11/03/18 11:17 99 11/03/18 11:10 82 28 98 11/03/18 11:07 84 34 174/97 99 11/03/18 11:03 81 26 98 11/03/18 11:00 85 22 97 11/03/18 10:58 87 22 171/89 97 11/03/18 10:52 87 27 180/100 95 11/03/18 10:47 21 11/03/18 10:45 96.9 F 83 35 180/100 89 - Laboratory Lab Results: Lab Results 11/03/18 11/03/18 11/03/18 Range/Units 10:58 10:58 10:58 WBC 19.4 H (3.5-10.8) 10^3/ul RBC 3.78 L (4.00-5.40) 10^6/ul Hgb 12.6 L (14.0-18.0) g/dl Hct 39 L (42-52) % MCV 103 H (80-94) fL MCH 33 H (27-31) pg MCHC 32 (31-36) g/dl RDW 17 H (10.5-15) % Plt Count 324 (150-450) 10^3/ul MPV 7.4 (7.4-10.4) fL Neut % (Auto) 69.9 % Lymph % (Auto) 15.0 % [place] % (Auto) 13.2 % Eos % (Auto) 0.9 % Baso % (Auto) 1.0 % Absolute Neuts (auto) 13.5 H (1.5-7.7) 10^3/ul Absolute Lymphs (auto) 2.9 (1.0-4.8) 10^3/ul Absolute Monos (auto) 2.6 H (0-0.8) 10^3/ul Absolute Eos (auto) 0.2 (0-0.6) 10^3/ul Absolute Basos (auto) 0.2 (0-0.2) 10^3/ul Absolute Nucleated RBC 0 10^3/ul Nucleated RBC % 0.2 Patient Temperature ABG pH (7.35-7.45) ABG pH (Temp Correct) ABG pCO2 (35-45) mmHg ABG pCO2 (Temp Corrct ABG pO2 (80-100) mmHg ABG pO2 (Temp Correct ABG HCO3 (19-31) mmol/L ABG O2 Saturation (94.0-98.0) % ABG Base Excess (-2.0-2.0) mmol/L VBG pH (7.32-7.43) VBG pCO2 (41-51) mmHg VBG pO2 (35-45) mmHg VBG HCO3 (24-28) mmol/L VBG O2 Saturation (70-80) % VBG Base Excess (0.0-4.0) mmol/L Respiration Rate O2 Delivery Device Ventilator Type Vent Mode FiO2 Inspiratory Time PEEP Pressure Support Pressure Control EPAP IPAP BiPAP Sodium 134 L (135-145) mmol/L Potassium 4.3 (3.5-5.0) mmol/L Chloride 103 (101-111) mmol/L Carbon Dioxide 23 (22-32) mmol/L Anion Gap 8 (2-11) mmol/L BUN 7 (6-24) mg/dL Creatinine 0.94 (0.67-1.17) mg/dL Est GFR ( Amer) 100.1 (>60) Est GFR (Non-Af Amer) 82.7 (>60) BUN/Creatinine Ratio 7.4 L (8-20) Glucose 205 H (70-100) mg/dL Lactic Acid 3.5 H* (0.5-2.0) mmol/L Calcium 9.1 (8.6-10.3) mg/dL Total Bilirubin 0.40 (0.2-1.0) mg/dL AST 55 H (13-39) U/L ALT 56 H (7-52) U/L Alkaline Phosphatase 99 (34-104) U/L CK-MB (CK-2) 4.3 (0.6-6.3) ng/mL Troponin I 0.01 (<0.04) ng/mL C-Reactive Protein 2.17 (<8.01) mg/L B-Natriuretic Peptide (<=100) pg/mL Total Protein 6.6 (6.4-8.9) g/dL Albumin 4.1 (3.2-5.2) g/dL Globulin 2.5 (2-4) g/dL Albumin/Globulin Ratio 1.6 (1-3) 11/03/18 11/03/18 11/03/18 Range/Units 10:58 11:03 11:27 WBC (3.5-10.8) 10^3/ul RBC (4.00-5.40) 10^6/ul Hgb (14.0-18.0) g/dl Hct (42-52) % MCV (80-94) fL MCH (27-31) pg MCHC (31-36) g/dl RDW (10.5-15) % Plt Count (150-450) 10^3/ul MPV (7.4-10.4) fL Neut % (Auto) % Lymph % (Auto) % [place] % (Auto) % Eos % (Auto) % Baso % (Auto) % Absolute Neuts (auto) (1.5-7.7) 10^3/ul Absolute Lymphs (auto) (1.0-4.8) 10^3/ul Absolute Monos (auto) (0-0.8) 10^3/ul Absolute Eos (auto) (0-0.6) 10^3/ul Absolute Basos (auto) (0-0.2) 10^3/ul Absolute Nucleated RBC 10^3/ul Nucleated RBC % Patient Temperature Not Reportable ABG pH 7.15 L* (7.35-7.45) ABG pH (Temp Correct) Pending ABG pCO2 63 H (35-45) mmHg ABG pCO2 (Temp Corrct Pending ABG pO2 103 H (80-100) mmHg ABG pO2 (Temp Correct Pending ABG HCO3 18.8 L (19-31) mmol/L ABG O2 Saturation 98.3 H (94.0-98.0) % ABG Base Excess -7.8 L (-2.0-2.0) mmol/L VBG pH 7.17 L (7.32-7.43) VBG pCO2 65 H (41-51) mmHg VBG pO2 89.0 H (35-45) mmHg VBG HCO3 20.2 L (24-28) mmol/L VBG O2 Saturation 97.1 H (70-80) % VBG Base Excess -5.9 L (0.0-4.0) mmol/L Respiration Rate Not Reportable O2 Delivery Device bipap Ventilator Type Not Reportable Vent Mode Not Reportable FiO2 50 Inspiratory Time Not Reportable PEEP Not Reportable Pressure Support Not Reportable Pressure Control Not Reportable EPAP 8 IPAP 16 BiPAP s/t Sodium (135-145) mmol/L Potassium (3.5-5.0) mmol/L Chloride (101-111) mmol/L Carbon Dioxide (22-32) mmol/L Anion Gap (2-11) mmol/L BUN (6-24) mg/dL Creatinine (0.67-1.17) mg/dL Est GFR ( Amer) (>60) Est GFR (Non-Af Amer) (>60) BUN/Creatinine Ratio (8-20) Glucose (70-100) mg/dL Lactic Acid (0.5-2.0) mmol/L Calcium (8.6-10.3) mg/dL Total Bilirubin (0.2-1.0) mg/dL AST (13-39) U/L ALT (7-52) U/L Alkaline Phosphatase (34-104) U/L CK-MB (CK-2) (0.6-6.3) ng/mL Troponin I (<0.04) ng/mL C-Reactive Protein (<8.01) mg/L B-Natriuretic Peptide 370 H (<=100) pg/mL Total Protein (6.4-8.9) g/dL Albumin (3.2-5.2) g/dL Globulin (2-4) g/dL Albumin/Globulin Ratio (1-3) Result Diagrams: 11/03/18 10:58 11/03/18 10:58 Lab Statement: Any lab studies that have been ordered have been reviewed, and results considered in the medical decision making process. Course/Dx - Course Course Of Treatment: Patient arrives by EMS in respiratory distress. Patient is tripoding, with increased WOB, diaphoretic, unable to speak in 2 word sentences or answer questions. Respiratory called. Placed on CPAP in the EMS, and moved to Vapotherm immediately on arrival. Vapotherm after 10 minutes without improvement of WOB, this was discontinued and BiPAP placed at 8/16 rate. He was also immediately given Decadron 16 mg, and easy and 2 mg, 1 L normal saline. Labs obtained and he is noted to have an white count of 19.4. VBG originally ordered an ABG completed with a pH of 7.15, and a bicarbonate of 18.8 showing respiratory acidosis. Lactic high at 3.5, however fluids restricted to 1 L due to BNP. Patients WOB improved after approximately 30 minutes on BiPAP. Influenza negative, urine negative. Chest x-ray shows bilateral pulmonary inflammatory infiltrates most prominent at the right midlung zone superimposed findings of COPD and emphysema. Discussed case with water well driller, Dr. Mcknight who agrees to admit. Patient remains on BiPAP at 8/16 and 2 more DuoNebs given by respiratory. Patient is given Zosyn and azithromycin. Patient is admitted to ICU. Critical care Time 30-75 minutes. - Diagnoses Provider Diagnoses: COPD exacerbation, Bilateral pneumonia - Physician Notifications Discussed Care of Patient With: Allyn Mcknight Instructed by Provider To: Admit As Inpatient - Critical Care Time Critical Care Time: 30-74 min - Critical care time Discharge - Sign-Out/Discharge Documenting (check all that apply): Patient Departure Patient Received Moderate/Deep Sedation with Procedure: No - Discharge Plan Condition: Fair Disposition: ADMITTED TO [facility] Referrals: Allyn Heredia MD [Primary Care Provider] - - Billing Disposition and Condition Condition: FAIR Disposition: Admitted to [facility]
[2018-11-03] MEDS ORDERED: hydrALAZINE IV* 20 MG/ML VIAL IV SLOW PU PRN (12:51)
[2018-11-03] MEDS ORDERED: Metoprolol Tartrate IV* 1 MG/ML 5 ML VIAL IV PRN (12:51)
[2018-11-03 12:57] LABS: Urine Appearance Cloudy; Urine Bacteria Absent (Absent); Urine Bilirubin Negative (Negative); Urine Blood Negative (Negative); Urine Color Yellow; Urine Glucose Negative (Negative); Urine Ketones Negative (Negative); Urine Nitrite Negative (Negative); Urine Protein 1+(30 mg/dL) (Negative); Urine Red Blood Cell Trace(0-2/hpf) (Absent); Urine Specific Gravity 1.012 (1.010-1.030); Urine Squamous Epithelial Cell Present (Absent); Urine Urobilinogen Negative (Negative); Urine White Blood Cell Trace(0-5/hpf) (Absent)
[2018-11-03] MEDS ORDERED: Enoxaparin(*) 40 MG/0.4 ML SYR SUBCUT SCH ×2 (13:00→18:30)
[2018-11-03 13:09] LABS: Influenza A Molecular NEGATIVE (Negative); Influenza B Molecular NEGATIVE (Negative)
[2018-11-03] MEDS ORDERED: Albuterol 2.5 MG/3 ML NEB.SOL* (0.083%) INH PRN (13:19)
[2018-11-03] MEDS ORDERED: Albuterol/Ipratropium NEB.SOL* Albuterol 2.5 MG/Ipratropium 0.5 MG 3 ML INH SCH (14:00)
[2018-11-03] MEDS: Albuterol/Ipratropium NEB.SOL* Albuterol 2.5 MG/Ipratropium 0.5 MG 3 ML INH SCH ×2 (14:59→19:35)
[2018-11-03] MEDS: NS 0.9% 1000 ML** 1,000 ML IV SCH (19:46)
[2018-11-03] MEDS: methylPREDNISolone SOD 40 MG* 1 ML VIAL IV SCH (21:37)
[2018-11-03] MEDS: Potassium Chlor TAB* 10 MEQ TAB.ER PO SCH (23:37)
[2018-11-04] MEDS: Albuterol/Ipratropium NEB.SOL* Albuterol 2.5 MG/Ipratropium 0.5 MG 3 ML INH SCH ×7 (00:08→23:16)
[2018-11-04] MEDS: Morphine VIAL* 4 MG/ML VIAL (1 ml vial) IV PRN ×3 (03:12→23:27)
[2018-11-04] MEDS: methylPREDNISolone SOD 40 MG* 1 ML VIAL IV SCH ×3 (05:35→21:22)
[2018-11-04] MEDS: Pantoprazole TAB * 40 MG TAB PO SCH (07:44)
[2018-11-04] MEDS: Magnesium Oxide TAB* 400 MG PO SCH ×2 (07:44→21:22)
[2018-11-04] MEDS: Metoprolol Tartrate TAB* 100 MG TAB PO SCH ×3 (07:44→21:22)
[2018-11-04] MEDS: cefTRIAXone(*) 1 GM in NS 0.9% 50 ML* 50 ML IVPB SCH (07:45)
[2018-11-04] MEDS: NS 0.9% 1000 ML** 1,000 ML IV SCH (07:52)
--- NOTE | 2018-11-04 08:22 | PN ---
Date of Service: 11/04/18 - HD 2 Critical Care Services: 57 yo M with PMH including Atrial fib and flutter with two prior ablations, pulmonary HTN, COPD and chronic hypoxic respiratory failure, and YAMEL on CPAP. He has been admitted multiple times previously for COPD exacerbations, though never required intubation. He presents to the ED on 11/03 with acute shortness of breath. On evaluation in the ED he was found to have an O2 sat of 89 on 6L NC. He was tried on vapotherm with minimal improvement in respiratory effort thus he was placed on BiPAP. He has subsequently stabilized and O2 sat now 98% on FIO2 50%. Increased work of breathing also improved. CXR shows bilateral infiltrates concerning for community acquired pneumonia. Started on broad spectrum antibiotics, as well as steriods and duonebs for COPD exacerbation. Admitted to ICU for further stabilization and care. 11/04: weaned off BiPAP overnight Vital Signs: Temp Pulse Resp BP SpO2 FiO2 98.1 F 95 21 126/81 99 35 11/04/18 03:55 11/04/18 07:00 11/04/18 07:00 11/04/18 07:00 11/04/18 06:00 11/03 19:35 Physical Exam: Gen: standing at bedside HEENT: NC in place Lungs: scattered wheezes but improved from yesterday Cardiac: RRR Abdomen: nondistended Extremities: moving equally Neuro: alert and oriented Fluid Balance (Past 24 Hours): I= O= Net Intake & Output 11/02/18 11/03/18 11/04/18 11/05/18 06:59 06:59 06:59 06:59 Intake Total 1284 Output Total 525 Balance 759 Weight 162 lb 4.163 oz Intake: IV Fluids 738 normal saline 738 IVPB 46 ABX - AZITHROMYCIN 46 Oral 500 Output: Urine 375 Ileostomy 150 Other: Date of Last Bowel 11/04/18 Movement # Voids 0 Labs: Laboratory Results - last 24 hr 11/03/18 11/03/18 11/03/18 10:58 10:58 10:58 WBC 19.4 H RBC 3.78 L Hgb 12.6 L Hct 39 L MCV 103 H MCH 33 H MCHC 32 RDW 17 H Plt Count 324 MPV 7.4 Neut % (Auto) 69.9 Lymph % (Auto) 15.0 [place] % (Auto) 13.2 Eos % (Auto) 0.9 Baso % (Auto) 1.0 Absolute Neuts (auto) 13.5 H Absolute Lymphs (auto) 2.9 Absolute Monos (auto) 2.6 H Absolute Eos (auto) 0.2 Absolute Basos (auto) 0.2 Absolute Nucleated RBC 0 Nucleated RBC % 0.2 Patient Temperature ABG pH ABG pCO2 ABG pO2 ABG HCO3 ABG O2 Saturation ABG Base Excess VBG pH VBG pCO2 VBG pO2 VBG HCO3 VBG O2 Saturation VBG Base Excess Respiration Rate O2 Delivery Device Ventilator Type Vent Mode FiO2 Inspiratory Time PEEP Pressure Support Pressure Control EPAP IPAP BiPAP Sodium 134 L Potassium 4.3 Chloride 103 Carbon Dioxide 23 Anion Gap 8 BUN 7 Creatinine 0.94 Est GFR ( Amer) 100.1 Est GFR (Non-Af Amer) 82.7 BUN/Creatinine Ratio 7.4 L Glucose 205 H Lactic Acid 3.5 H* Calcium 9.1 Total Bilirubin 0.40 AST 55 H ALT 56 H Alkaline Phosphatase 99 CK-MB (CK-2) 4.3 Troponin I 0.01 C-Reactive Protein 2.17 B-Natriuretic Peptide Total Protein 6.6 Albumin 4.1 Globulin 2.5 Albumin/Globulin Ratio 1.6 Urine Color Urine Appearance Urine pH Ur Specific [place] Urine Protein Urine Ketones Urine Blood Urine Nitrate Urine Bilirubin Urine Urobilinogen Ur Leukocyte Esterase Urine WBC (Auto) Urine RBC (Auto) Ur Squamous Epith Cells Urine Bacteria Hyaline Casts Urine Glucose Urine Ascorbic Acid Influenza A (Rapid) Influenza B (Rapid) 11/03/18 11/03/18 11/03/18 10:58 11:03 11:27 WBC RBC Hgb Hct MCV MCH MCHC RDW Plt Count MPV Neut % (Auto) Lymph % (Auto) [place] % (Auto) Eos % (Auto) Baso % (Auto) Absolute Neuts (auto) Absolute Lymphs (auto) Absolute Monos (auto) Absolute Eos (auto) Absolute Basos (auto) Absolute Nucleated RBC Nucleated RBC % Patient Temperature Not Reportable ABG pH 7.15 L* ABG pCO2 63 H ABG pO2 103 H ABG HCO3 18.8 L ABG O2 Saturation 98.3 H ABG Base Excess -7.8 L VBG pH 7.17 L VBG pCO2 65 H VBG pO2 89.0 H VBG HCO3 20.2 L VBG O2 Saturation 97.1 H VBG Base Excess -5.9 L Respiration Rate Not Reportable O2 Delivery Device bipap Ventilator Type Not Reportable Vent Mode Not Reportable FiO2 50 Inspiratory Time Not Reportable PEEP Not Reportable Pressure Support Not Reportable Pressure Control Not Reportable EPAP 8 IPAP 16 BiPAP s/t Sodium Potassium Chloride Carbon Dioxide Anion Gap BUN Creatinine Est GFR ( Amer) Est GFR (Non-Af Amer) BUN/Creatinine Ratio Glucose Lactic Acid Calcium Total Bilirubin AST ALT Alkaline Phosphatase CK-MB (CK-2) Troponin I C-Reactive Protein B-Natriuretic Peptide 370 H Total Protein Albumin Globulin Albumin/Globulin Ratio Urine Color Urine Appearance Urine pH Ur Specific [place] Urine Protein Urine Ketones Urine Blood Urine Nitrate Urine Bilirubin Urine Urobilinogen Ur Leukocyte Esterase Urine WBC (Auto) Urine RBC (Auto) Ur Squamous Epith Cells Urine Bacteria Hyaline Casts Urine Glucose Urine Ascorbic Acid Influenza A (Rapid) Influenza B (Rapid) 11/03/18 11/03/18 12:44 12:57 WBC RBC Hgb Hct MCV MCH MCHC RDW Plt Count MPV Neut % (Auto) Lymph % (Auto) [place] % (Auto) Eos % (Auto) Baso % (Auto) Absolute Neuts (auto) Absolute Lymphs (auto) Absolute Monos (auto) Absolute Eos (auto) Absolute Basos (auto) Absolute Nucleated RBC Nucleated RBC % Patient Temperature ABG pH ABG pCO2 ABG pO2 ABG HCO3 ABG O2 Saturation ABG Base Excess VBG pH VBG pCO2 VBG pO2 VBG HCO3 VBG O2 Saturation VBG Base Excess Respiration Rate O2 Delivery Device Ventilator Type Vent Mode FiO2 Inspiratory Time PEEP Pressure Support Pressure Control EPAP IPAP BiPAP Sodium Potassium Chloride Carbon Dioxide Anion Gap BUN Creatinine Est GFR ( Amer) Est GFR (Non-Af Amer) BUN/Creatinine Ratio Glucose Lactic Acid Calcium Total Bilirubin AST ALT Alkaline Phosphatase CK-MB (CK-2) Troponin I C-Reactive Protein B-Natriuretic Peptide Total Protein Albumin Globulin Albumin/Globulin Ratio Urine Color Yellow Urine Appearance Cloudy Urine pH 5.0 Ur Specific [place] 1.012 Urine Protein 1+(30 mg/dl) A Urine Ketones Negative Urine Blood Negative Urine Nitrate Negative Urine Bilirubin Negative Urine Urobilinogen Negative Ur Leukocyte Esterase Negative Urine WBC (Auto) Trace(0-5/hpf) Urine RBC (Auto) Trace(0-2/hpf) Ur Squamous Epith Cells Present A Urine Bacteria Absent Hyaline Casts Present A Urine Glucose Negative Urine Ascorbic Acid * A Influenza A (Rapid) Negative Influenza B (Rapid) Negative Studies: 11/03 CXR - bilateral pulmonary inflammatory infiltrates most prominent in right mid lung zone. COPD and emphysema also noted. Nutrition: regular diet Impression: 57 yo M with COPD, pulmonary HTN and afib, on home O2 presents to the ED on with COPD exacerbation and pneumonia requiring BiPAP to maintain adequate oxygenation. Started on steriods, bronchodilators and broadspectrum antibiotics. Weaned off BiPAP by 11/04. Plan: Cardiovascular: (1) Chronic atrial fibrillation and flutter; (2) hx of sick sinus syndrome with pacemaker in situ; (3) Pulmonary HTN; (4) HTN -- HR 64-102 -- SBP 95-180 -- Telemetry -- TTE, 09/15/2018: mild LVH EF 55-60% abnormal left ventricular diastolic filling trace to mild mitral regurgitation trace to mild tricsupid regurg pulmonary HTN -- cardiac enzymes MB 4.3 Trop 0.01 BNP 370, follow trend -- Metoprolol -- Rivaroxaban -- PRN Hydralazine Home meds: Rivaroxaban, Diltiazem PRN, metoprolol, torsemide PRN, losartan Pulmonary: (1) Acute on chronic hypoxic and hypercarbic respiratory failure, improving; (2) COPD Exacerbation; (3) bilateral community acquired pneumonia; (4 ) YAMEL on CPAP -- RR 15-35 -- sats 97-100 on 2L NC -- CXR, 11/03: bilateral pulmonary infiltrates most prominent in right midlung zone. also COPD and emphysema -- Duonebs Home meds: Umeclidium [place], Symbicort, Levalbuterol Gastrointestinal: (1) minimally elevated LFTs; (2) hx of ulcerative colitis s/ p colectomy -- check LFTs with AM labs -- diet: regular -- bowel regimen: None -- ulcer prophylaxis: Protonix Home meds: Protonix, Sucralfate Endocrine: No acute issues -- monitor BGs Home meds: None Renal: (1) Mild hyponatremia -- I/O: 1284ml in/ 525ml out -- BMP pending -- IVF: NS @ 75 ml/hr, HL as now on diet -- Mag ox -- potassium chloride Home meds: Potassium chloride, torsemide PRN, mag ox Infectious disease: (1) Sepsis; (2) Bilateral pneumonia, community acquired -- Tmax 98.6 -- WBC pending -- Micro 11/03 UA ordered flu negative sputum ordered blood ordered -- ABX Rocephin Azithromycin Home meds: None Neurologic: No acute issues -- Gabapentin -- PT Home meds: Tylenol, gabapentin Hematological: No acute issues -- CBC pending -- DVT prophylaxis: SQ Lovenox, switched to home rivaroxaban -- resume home rivaroxaban Home meds: Rivaroxaban Metabolic: (1) Lactic acidosis -- Lactic acid 3.5, hydrate, follow trend Home meds: None Deep vein thrombosis prophylaxis: Rivaroxaban Dietary: Protonix Condition: serious Prognosis: good Code status: full Disposition: transfer to floor in afternoon if stays off bipap Cumulative time spent in the care of this patient (excluding any procedure time) : at least 40 minutes. Patient care included clinical interview (with patient and/or family), bedside exam of the patient, review of labs, x-rays, and other ancillary data, coordination of (respiratory, nursing care, review of patient's records, discussion regarding patients management with involved consultants, primary physician, pharmacists, and other healthcare personnel (dietary, case management , physical/occupational therapy etc.) Critical Care Time: 40
[2018-11-04 10:04] LABS: Hematocrit 34 % (42-52); Hemoglobin 11.2 g/dl (14.0-18.0); Mean Corpuscular HGB Conc 33 g/dl (31-36); Mean Corpuscular Hemoglobin 34 pg (27-31); Mean Corpuscular Volume 102 fL (80-94); Mean Platelet Volume 7.5 fL (7.4-10.4); Platelet Count 203 10^3/ul (150-450); Red Blood Count 3.34 10^6/ul (4.00-5.40); Red Cell Distribution Width 17 % (10.5-15); White Blood Count 18.9 10^3/ul (3.5-10.8)
[2018-11-04 10:20] LABS: Albumin 3.8 g/dL (3.2-5.2); Albumin/Globulin Ratio 1.7 (1-3); BUN/Creatinine Ratio 15.9 (8-20); Calcium 8.8 mg/dL (8.6-10.3); EGFR African American 117.2 (>60); EGFR Non-African American 96.8 (>60); Globulin 2.3 g/dL (2-4); Indirect Bilirubin 0.2 mg/dL (0.3-1.0); Potassium 4.6 mmol/L (3.5-5.0); Total Bilirubin 0.3 mg/dL (0.2-1.0); Total Protein 6.1 g/dL (6.4-8.9)
[2018-11-04] MEDS: Rivaroxaban TAB(*) 20 MG TAB PO SCH (10:43)
[2018-11-04] MEDS ORDERED: NS 0.9% 1000 ML** 1,000 ML IV ONE (11:03)
[2018-11-04] MEDS ORDERED: NS 0.9% 1000 ML** 1,000 ML IV SCH (11:15)
[2018-11-04] MEDS: guaiFENesin ER TAB 600 MG PO SCH ×2 (12:43→21:22)
[2018-11-04] MEDS: Azithromycin IV(*) 500 MG in NS 0.9% 250 ML* 250 ML IVPB SCH (12:44)
[2018-11-04] MEDS: Gabapentin CAP(*) 100 MG PO SCH (21:20)
[2018-11-05] MEDS: Albuterol/Ipratropium NEB.SOL* Albuterol 2.5 MG/Ipratropium 0.5 MG 3 ML INH SCH ×6 (03:08→23:22)
[2018-11-05] MEDS: Morphine VIAL* 4 MG/ML VIAL (1 ml vial) IV PRN ×5 (03:42→22:41)
[2018-11-05] MEDS ORDERED: NS 0.9% 1000 ML** 1,000 ML IV SCH (03:49)
[2018-11-05] MEDS: methylPREDNISolone SOD 40 MG* 1 ML VIAL IV SCH ×3 (05:38→20:16)
[2018-11-05 06:14] LABS: Hematocrit 34 % (42-52); Hemoglobin 11.2 g/dl (14.0-18.0); Mean Corpuscular HGB Conc 33 g/dl (31-36); Mean Corpuscular Hemoglobin 34 pg (27-31); Mean Corpuscular Volume 102 fL (80-94); Mean Platelet Volume 7.2 fL (7.4-10.4); Platelet Count 206 10^3/ul (150-450); Red Blood Count 3.32 10^6/ul (4.00-5.40); Red Cell Distribution Width 16 % (10.5-15)
[2018-11-05 06:32] LABS: BUN/Creatinine Ratio 25.3 (8-20); Calcium 8.7 mg/dL (8.6-10.3); EGFR African American 115.5 (>60); EGFR Non-African American 95.5 (>60); Potassium 4.6 mmol/L (3.5-5.0)
[2018-11-05] MEDS: Pantoprazole TAB * 40 MG TAB PO SCH (09:02)
[2018-11-05] MEDS: Rivaroxaban TAB(*) 20 MG TAB PO SCH (09:02)
[2018-11-05] MEDS: Potassium Chlor TAB* 10 MEQ TAB.ER PO SCH (09:02)
[2018-11-05] MEDS: guaiFENesin ER TAB 600 MG PO SCH ×2 (09:03→20:15)
[2018-11-05] MEDS: Magnesium Oxide TAB* 400 MG PO SCH ×2 (09:03→20:16)
[2018-11-05] MEDS: Metoprolol Tartrate TAB* 100 MG TAB PO SCH ×3 (09:03→20:15)
[2018-11-05] MEDS: cefTRIAXone(*) 1 GM in NS 0.9% 50 ML* 50 ML IVPB SCH (09:11)
[2018-11-05] MEDS: Azithromycin IV(*) 500 MG in NS 0.9% 250 ML* 250 ML IVPB SCH (13:33)
[2018-11-05] MEDS ORDERED: Furosemide IV* 10 MG/ML VIAL (40 MG) IV ONE (15:53)
[2018-11-05] MEDS: Morphine ORAL CONCENTRATE* 5 MG/0.25 ML ORAL.SYRIN SL PRN (15:56)
--- NOTE | 2018-11-05 15:59 | PN ---
Subjective Date of Service: 11/05/18 Interval History: Pt is feeling poorly today. He states he has been struggling to breathe all day. He has been coughing but not able to bring up any sputum. He also notes his weight is up about 20lb from home. He questions if he needs a diuretic added back. Objective Active Medications: Albuterol (Ventolin 2.5 Mg/3 Ml Neb.Leona*) 2.5 mg INH Q4H PRN PRN Reason: SOB/WHEEZING Albuterol/Ipratropium (Duoneb (Albuterol 2.5 Mg/Ipratropium 0.5 Mg)) 1 neb INH Q4H [facility] Last Admin: 11/05/18 15:16 Dose: 1 neb Furosemide (Lasix Iv*) 40 mg IV ONCE ONE Stop: 11/05/18 15:54 Gabapentin (Neurontin Cap(*)) 100 mg PO BEDTIME [facility] Last Admin: 11/04/18 21:20 Dose: 100 mg Guaifenesin (Mucinex*) 600 mg PO BID [facility] Last Admin: 11/05/18 09:03 Dose: 600 mg Hydralazine HCl (Apresoline Iv*) 5 mg IV SLOW PU Q6H PRN PRN Reason: SYSTOLIC BP GREATER THAN: Ceftriaxone Sodium 1 gm/ (Sodium Chloride) 50 mls @ 200 mls/hr IVPB Q24H [facility] Stop: 11/11/18 08:59 Last Admin: 11/05/18 09:11 Dose: 200 mls/hr Azithromycin 500 mg/ Sodium (Chloride) 250 mls @ 250 mls/hr IVPB Q24H [facility] Stop: 11/11/18 11:59 Last Admin: 11/05/18 13:33 Dose: 250 mls/hr Magnesium Oxide (Magox 400 Tab*) 400 mg PO BID [facility] Last Admin: 11/05/18 09:03 Dose: 400 mg Methylprednisolone Sodium Succinate (Solu-Medrol 40 Mg) 40 mg IV Q8H [facility] Last Admin: 11/05/18 13:31 Dose: 40 mg Metoprolol Tartrate (Lopressor Tab*) 100 mg PO TID [facility] Last Admin: 11/05/18 13:31 Dose: 100 mg Morphine Sulfate (Morphine Vial*) 2 mg IV Q4H PRN PRN Reason: Pain - Mild or air hunger Last Admin: 11/05/18 12:50 Dose: 2 mg Morphine Sulfate (Morphine Oral Concentrate*) 5 mg SL Q2H PRN PRN Reason: air hunger Pantoprazole Sodium (Protonix Tab*) 40 mg PO DAILY [facility] Last Admin: 11/05/18 09:02 Dose: 40 mg Potassium Chloride (Klor Con Er Tab*) 10 meq PO EVERY OTHER DAY [facility] Last Admin: 11/05/18 09:02 Dose: 10 meq Rivaroxaban (Xarelto(*)) 20 mg PO DAILY [facility] Last Admin: 11/05/18 09:02 Dose: 20 mg Vital Signs - 8 hr 11/05/18 11/05/18 11/05/18 08:06 08:39 09:03 Temperature 96.5 F Pulse Rate 89 91 Respiratory 18 16 16 Rate Blood Pressure 145/87 (mmHg) O2 Sat by Pulse 99 98 Oximetry 11/05/18 11/05/18 11/05/18 10:48 11:32 12:50 Temperature 96.7 F Pulse Rate 91 88 Respiratory 20 16 22 Rate Blood Pressure 138/85 (mmHg) O2 Sat by Pulse 99 93 Oximetry 11/05/18 11/05/18 11/05/18 12:52 14:25 15:20 Temperature Pulse Rate 83 Respiratory 22 20 24 Rate Blood Pressure (mmHg) O2 Sat by Pulse 98 Oximetry Oxygen Devices in Use Now: BiPAP Appearance: Middle aged male sitting on the edge of the bed, NAD Eyes: No Scleral Icterus Ears/Nose/Mouth/Throat: Mucous Membranes Moist Respiratory: Symmetrical Chest Expansion and Respiratory Effort - markedly diminished throughout, Clear to Auscultation Cardiovascular: NL Sounds; No Murmurs; No JVD, RRR, - - 1+ edema Abdominal: NL Sounds; No Tenderness; No Distention Extremities: No Clubbing, Cyanosis Skin: No Nodules or Sclerosis Neurological: Alert and Oriented x 3 Result Diagrams: 11/05/18 06:03 11/05/18 06:03 Additional Lab and Data: Lab Results 11/03/18 11/03/18 11/03/18 Range/Units 10:58 10:58 10:58 WBC 19.4 H (3.5-10.8) 10^3/ul RBC 3.78 L (4.00-5.40) 10^6/ul Hgb 12.6 L (14.0-18.0) g/dl Hct 39 L (42-52) % MCV 103 H (80-94) fL MCH 33 H (27-31) pg MCHC 32 (31-36) g/dl RDW 17 H (10.5-15) % Plt Count 324 (150-450) 10^3/ul MPV 7.4 (7.4-10.4) fL Neut % (Auto) 69.9 % Lymph % (Auto) 15.0 % [place] % (Auto) 13.2 % Eos % (Auto) 0.9 % Baso % (Auto) 1.0 % Absolute Neuts (auto) 13.5 H (1.5-7.7) 10^3/ul Absolute Lymphs (auto) 2.9 (1.0-4.8) 10^3/ul Absolute Monos (auto) 2.6 H (0-0.8) 10^3/ul Absolute Eos (auto) 0.2 (0-0.6) 10^3/ul Absolute Basos (auto) 0.2 (0-0.2) 10^3/ul Absolute Nucleated RBC 0 10^3/ul Nucleated RBC % 0.2 Patient Temperature ABG pH (7.35-7.45) ABG pH (Temp Correct) ABG pCO2 (35-45) mmHg ABG pCO2 (Temp Corrct ABG pO2 (80-100) mmHg ABG pO2 (Temp Correct ABG HCO3 (19-31) mmol/L ABG O2 Saturation (94.0-98.0) % ABG Base Excess (-2.0-2.0) mmol/L VBG pH (7.32-7.43) VBG pCO2 (41-51) mmHg VBG pO2 (35-45) mmHg VBG HCO3 (24-28) mmol/L VBG O2 Saturation (70-80) % VBG Base Excess (0.0-4.0) mmol/L Respiration Rate O2 Delivery Device Ventilator Type Vent Mode FiO2 Inspiratory Time PEEP Pressure Support Pressure Control EPAP IPAP BiPAP Sodium 134 L (135-145) mmol/L Potassium 4.3 (3.5-5.0) mmol/L Chloride 103 (101-111) mmol/L Carbon Dioxide 23 (22-32) mmol/L Anion Gap 8 (2-11) mmol/L BUN 7 (6-24) mg/dL Creatinine 0.94 (0.67-1.17) mg/dL Est GFR ( Amer) 100.1 (>60) Est GFR (Non-Af Amer) 82.7 (>60) BUN/Creatinine Ratio 7.4 L (8-20) Glucose 205 H (70-100) mg/dL Lactic Acid 3.5 H* (0.5-2.0) mmol/L Calcium 9.1 (8.6-10.3) mg/dL Total Bilirubin 0.40 (0.2-1.0) mg/dL AST 55 H (13-39) U/L ALT 56 H (7-52) U/L Alkaline Phosphatase 99 (34-104) U/L CK-MB (CK-2) 4.3 (0.6-6.3) ng/mL Troponin I 0.01 (<0.04) ng/mL C-Reactive Protein 2.17 (<8.01) mg/L B-Natriuretic Peptide (<=100) pg/mL Total Protein 6.6 (6.4-8.9) g/dL Albumin 4.1 (3.2-5.2) g/dL Globulin 2.5 (2-4) g/dL Albumin/Globulin Ratio 1.6 (1-3) 11/03/18 11/03/18 11/03/18 Range/Units 10:58 11:03 11:27 WBC (3.5-10.8) 10^3/ul RBC (4.00-5.40) 10^6/ul Hgb (14.0-18.0) g/dl Hct (42-52) % MCV (80-94) fL MCH (27-31) pg MCHC (31-36) g/dl RDW (10.5-15) % Plt Count (150-450) 10^3/ul MPV (7.4-10.4) fL Neut % (Auto) % Lymph % (Auto) % [place] % (Auto) % Eos % (Auto) % Baso % (Auto) % Absolute Neuts (auto) (1.5-7.7) 10^3/ul Absolute Lymphs (auto) (1.0-4.8) 10^3/ul Absolute Monos (auto) (0-0.8) 10^3/ul Absolute Eos (auto) (0-0.6) 10^3/ul Absolute Basos (auto) (0-0.2) 10^3/ul Absolute Nucleated RBC 10^3/ul Nucleated RBC % Patient Temperature Not Reportable ABG pH 7.15 L* (7.35-7.45) ABG pH (Temp Correct) Pending ABG pCO2 63 H (35-45) mmHg ABG pCO2 (Temp Corrct Pending ABG pO2 103 H (80-100) mmHg ABG pO2 (Temp Correct Pending ABG HCO3 18.8 L (19-31) mmol/L ABG O2 Saturation 98.3 H (94.0-98.0) % ABG Base Excess -7.8 L (-2.0-2.0) mmol/L VBG pH 7.17 L (7.32-7.43) VBG pCO2 65 H (41-51) mmHg VBG pO2 89.0 H (35-45) mmHg VBG HCO3 20.2 L (24-28) mmol/L VBG O2 Saturation 97.1 H (70-80) % VBG Base Excess -5.9 L (0.0-4.0) mmol/L Respiration Rate Not Reportable O2 Delivery Device bipap Ventilator Type Not Reportable Vent Mode Not Reportable FiO2 50 Inspiratory Time Not Reportable PEEP Not Reportable Pressure Support Not Reportable Pressure Control Not Reportable EPAP 8 IPAP 16 BiPAP s/t Sodium (135-145) mmol/L Potassium (3.5-5.0) mmol/L Chloride (101-111) mmol/L Carbon Dioxide (22-32) mmol/L Anion Gap (2-11) mmol/L BUN (6-24) mg/dL Creatinine (0.67-1.17) mg/dL Est GFR ( Amer) (>60) Est GFR (Non-Af Amer) (>60) BUN/Creatinine Ratio (8-20) Glucose (70-100) mg/dL Lactic Acid (0.5-2.0) mmol/L Calcium (8.6-10.3) mg/dL Total Bilirubin (0.2-1.0) mg/dL AST (13-39) U/L ALT (7-52) U/L Alkaline Phosphatase (34-104) U/L CK-MB (CK-2) (0.6-6.3) ng/mL Troponin I (<0.04) ng/mL C-Reactive Protein (<8.01) mg/L B-Natriuretic Peptide 370 H (<=100) pg/mL Total Protein (6.4-8.9) g/dL Albumin (3.2-5.2) g/dL Globulin (2-4) g/dL Albumin/Globulin Ratio (1-3) Microbiology and Other Data: Microbiology 11/03/18 21:00 Aerobic Blood Culture - Preliminary Blood Venous No Growth Day 1 Anaerobic Blood Culture - Preliminary No Growth Day 1 11/03/18 21:00 Aerobic Blood Culture - Preliminary Blood Venous No Growth Day 1 Anaerobic Blood Culture - Preliminary No Growth Day 1 11/03/18 12:44 Urine Culture - Final Urine No Growth (<1,000 CFU/mL) 11/03/18 21:40 Nasal Screen MRSA (PCR) - Final Nasal Mrsa Not Detected 11/03/18 12:44 Influenza Types A,B Antigen - Final Nasopharyngeal Specimen received for Influenza A/B Molecular testing Assess/Plan/Problems-Billing Mr Yen is a 57 yo M who has a h/o advanced COPD, afib s/p ablation x2 and diastolic CHF who presented to the ER with c/o SOB and was admitted for a COPD exacerbation with possible pneumonia. - Patient Problems (1) Acute and chronic respiratory failure with hypoxia Current Visit: Yes Status: Acute Priority: High Code(s): J96.21 - ACUTE AND CHRONIC RESPIRATORY FAILURE WITH HYPOXIA SNOMED Code(s): 63784039 Comment: COPD exacerbation on admission and continued difficulty with SOB. Will continue BiPAP. Continue Abx, nebs and solumedrol. (2) COPD exacerbation Current Visit: Yes Status: Acute Code(s): J44.1 - CHRONIC OBSTRUCTIVE PULMONARY DISEASE W (ACUTE) EXACERBATION SNOMED Code(s): 900166310 Comment: As above. (3) Pneumonia Current Visit: Yes Status: Acute Priority: High Onset Date: 12/26/14 Code(s): J18.9 - PNEUMONIA, UNSPECIFIED ORGANISM SNOMED Code(s): 459227911 Comment: Continue ceftriaxone and azithromycin. Today is D#3/. (4) Atrial fibrillation with RVR Current Visit: Yes Status: Acute Code(s): I48.91 - UNSPECIFIED ATRIAL FIBRILLATION SNOMED Code(s): 787539768445163 Comment: Pt regular on exam. Continue metoprolol and xarelto. (5) DVT prophylaxis Current Visit: Yes Status: Acute Code(s): ZEN8953 - SNOMED Code(s): 971867898 Comment: Xarelto (6) Hypertension Current Visit: No Status: Chronic Code(s): I10 - ESSENTIAL (PRIMARY) HYPERTENSION SNOMED Code(s): 68053031 Comment: - Continue metoprolol (now on tartrate, usually on XL) and losartan
[2018-11-05] MEDS: Gabapentin CAP(*) 100 MG PO SCH (20:15)
[2018-11-06] MEDS: Albuterol/Ipratropium NEB.SOL* Albuterol 2.5 MG/Ipratropium 0.5 MG 3 ML INH SCH ×5 (04:10→20:10)
[2018-11-06] MEDS: methylPREDNISolone SOD 40 MG* 1 ML VIAL IV SCH ×3 (05:21→21:31)
[2018-11-06 06:02] LABS: Hematocrit 32 % (42-52); Hemoglobin 10.8 g/dl (14.0-18.0); Mean Corpuscular HGB Conc 33 g/dl (31-36); Mean Corpuscular Hemoglobin 34 pg (27-31); Mean Corpuscular Volume 101 fL (80-94); Mean Platelet Volume 7.2 fL (7.4-10.4); Platelet Count 173 10^3/ul (150-450); Red Blood Count 3.17 10^6/ul (4.00-5.40); Red Cell Distribution Width 16 % (10.5-15); White Blood Count 18.4 10^3/ul (3.5-10.8)
[2018-11-06 06:18] LABS: Calcium 8.7 mg/dL (8.6-10.3); EGFR African American 101.3 (>60); EGFR Non-African American 83.7 (>60); Potassium 4.4 mmol/L (3.5-5.0)
[2018-11-06] MEDS: Morphine VIAL* 4 MG/ML VIAL (1 ml vial) IV PRN (07:02)
[2018-11-06] MEDS: cefTRIAXone(*) 1 GM in NS 0.9% 50 ML* 50 ML IVPB SCH (08:01)
[2018-11-06] MEDS: Magnesium Oxide TAB* 400 MG PO SCH ×2 (08:01→21:32)
[2018-11-06] MEDS: guaiFENesin ER TAB 600 MG PO SCH ×2 (08:02→21:32)
[2018-11-06] MEDS: Rivaroxaban TAB(*) 20 MG TAB PO SCH (08:02)
[2018-11-06] MEDS: Metoprolol Tartrate TAB* 100 MG TAB PO SCH ×3 (08:03→21:33)
[2018-11-06] MEDS: Pantoprazole TAB * 40 MG TAB PO SCH (08:03)
[2018-11-06] MEDS: Morphine ORAL CONCENTRATE* 5 MG/0.25 ML ORAL.SYRIN SL PRN ×2 (11:40→21:32)
[2018-11-06] MEDS: Azithromycin IV(*) 500 MG in NS 0.9% 250 ML* 250 ML IVPB SCH (11:40)
--- NOTE | 2018-11-06 20:28 | PN ---
Subjective Date of Service: 11/06/18 Interval History: still sob.having a difficult time talking Objective Active Medications: Albuterol (Ventolin 2.5 Mg/3 Ml Neb.Leona*) 2.5 mg INH Q4H PRN PRN Reason: SOB/WHEEZING Albuterol/Ipratropium (Duoneb (Albuterol 2.5 Mg/Ipratropium 0.5 Mg)) 1 neb INH Q4H [facility] Last Admin: 11/06/18 20:10 Dose: 1 neb Furosemide (Lasix Iv*) 40 mg IV DAILY [facility] Gabapentin (Neurontin Cap(*)) 100 mg PO BEDTIME [facility] Last Admin: 11/05/18 20:15 Dose: 100 mg Guaifenesin (Mucinex*) 600 mg PO BID [facility] Last Admin: 11/06/18 08:02 Dose: 600 mg Hydralazine HCl (Apresoline Iv*) 5 mg IV SLOW PU Q6H PRN PRN Reason: SYSTOLIC BP GREATER THAN: Ceftriaxone Sodium 1 gm/ (Sodium Chloride) 50 mls @ 200 mls/hr IVPB Q24H [facility] Stop: 11/11/18 08:59 Last Admin: 11/06/18 08:01 Dose: 200 mls/hr Azithromycin 500 mg/ Sodium (Chloride) 250 mls @ 250 mls/hr IVPB Q24H [facility] Stop: 11/11/18 11:59 Last Admin: 11/06/18 11:40 Dose: 250 mls/hr Magnesium Oxide (Magox 400 Tab*) 400 mg PO BID [facility] Last Admin: 11/06/18 08:01 Dose: 400 mg Methylprednisolone Sodium Succinate (Solu-Medrol 40 Mg) 40 mg IV Q8H [facility] Last Admin: 11/06/18 13:32 Dose: 40 mg Metoprolol Tartrate (Lopressor Tab*) 100 mg PO TID [facility] Last Admin: 11/06/18 13:32 Dose: 100 mg Morphine Sulfate (Morphine Vial*) 2 mg IV Q4H PRN PRN Reason: Pain - Mild or air hunger Last Admin: 11/06/18 07:02 Dose: 2 mg Morphine Sulfate (Morphine Oral Concentrate*) 5 mg SL Q2H PRN PRN Reason: air hunger Last Admin: 11/06/18 11:40 Dose: 5 mg Pantoprazole Sodium (Protonix Tab*) 40 mg PO DAILY [facility] Last Admin: 11/06/18 08:03 Dose: 40 mg Potassium Chloride (Klor Con Er Tab*) 10 meq PO EVERY OTHER DAY [facility] Last Admin: 11/05/18 09:02 Dose: 10 meq Rivaroxaban (Xarelto(*)) 20 mg PO DAILY [facility] Last Admin: 11/06/18 08:02 Dose: 20 mg Vital Signs - 8 hr 11/06/18 11/06/18 11/06/18 13:32 14:55 20:12 Pulse Rate 89 81 Respiratory 24 8 20 Rate O2 Sat by Pulse 98 99 Oximetry Oxygen Devices in Use Now: Nasal Cannula Eyes: No Scleral Icterus Neck: NL Appearance and Movements; NL JVP Respiratory: - - Dec bilateral air entry Cardiovascular: - - irreg irregular Extremities: - - 2+ Edema Neurological: Alert and Oriented x 3 Result Diagrams: 11/06/18 05:47 11/06/18 05:47 Additional Lab and Data: Lab Results 11/03/18 11/03/18 11/03/18 Range/Units 10:58 10:58 10:58 WBC 19.4 H (3.5-10.8) 10^3/ul RBC 3.78 L (4.00-5.40) 10^6/ul Hgb 12.6 L (14.0-18.0) g/dl Hct 39 L (42-52) % MCV 103 H (80-94) fL MCH 33 H (27-31) pg MCHC 32 (31-36) g/dl RDW 17 H (10.5-15) % Plt Count 324 (150-450) 10^3/ul MPV 7.4 (7.4-10.4) fL Neut % (Auto) 69.9 % Lymph % (Auto) 15.0 % [place] % (Auto) 13.2 % Eos % (Auto) 0.9 % Baso % (Auto) 1.0 % Absolute Neuts (auto) 13.5 H (1.5-7.7) 10^3/ul Absolute Lymphs (auto) 2.9 (1.0-4.8) 10^3/ul Absolute Monos (auto) 2.6 H (0-0.8) 10^3/ul Absolute Eos (auto) 0.2 (0-0.6) 10^3/ul Absolute Basos (auto) 0.2 (0-0.2) 10^3/ul Absolute Nucleated RBC 0 10^3/ul Nucleated RBC % 0.2 Patient Temperature ABG pH (7.35-7.45) ABG pH (Temp Correct) ABG pCO2 (35-45) mmHg ABG pCO2 (Temp Corrct ABG pO2 (80-100) mmHg ABG pO2 (Temp Correct ABG HCO3 (19-31) mmol/L ABG O2 Saturation (94.0-98.0) % ABG Base Excess (-2.0-2.0) mmol/L VBG pH (7.32-7.43) VBG pCO2 (41-51) mmHg VBG pO2 (35-45) mmHg VBG HCO3 (24-28) mmol/L VBG O2 Saturation (70-80) % VBG Base Excess (0.0-4.0) mmol/L Respiration Rate O2 Delivery Device Ventilator Type Vent Mode FiO2 Inspiratory Time PEEP Pressure Support Pressure Control EPAP IPAP BiPAP Sodium 134 L (135-145) mmol/L Potassium 4.3 (3.5-5.0) mmol/L Chloride 103 (101-111) mmol/L Carbon Dioxide 23 (22-32) mmol/L Anion Gap 8 (2-11) mmol/L BUN 7 (6-24) mg/dL Creatinine 0.94 (0.67-1.17) mg/dL Est GFR ( Amer) 100.1 (>60) Est GFR (Non-Af Amer) 82.7 (>60) BUN/Creatinine Ratio 7.4 L (8-20) Glucose 205 H (70-100) mg/dL Lactic Acid 3.5 H* (0.5-2.0) mmol/L Calcium 9.1 (8.6-10.3) mg/dL Total Bilirubin 0.40 (0.2-1.0) mg/dL AST 55 H (13-39) U/L ALT 56 H (7-52) U/L Alkaline Phosphatase 99 (34-104) U/L CK-MB (CK-2) 4.3 (0.6-6.3) ng/mL Troponin I 0.01 (<0.04) ng/mL C-Reactive Protein 2.17 (<8.01) mg/L B-Natriuretic Peptide (<=100) pg/mL Total Protein 6.6 (6.4-8.9) g/dL Albumin 4.1 (3.2-5.2) g/dL Globulin 2.5 (2-4) g/dL Albumin/Globulin Ratio 1.6 (1-3) 11/03/18 11/03/18 11/03/18 Range/Units 10:58 11:03 11:27 WBC (3.5-10.8) 10^3/ul RBC (4.00-5.40) 10^6/ul Hgb (14.0-18.0) g/dl Hct (42-52) % MCV (80-94) fL MCH (27-31) pg MCHC (31-36) g/dl RDW (10.5-15) % Plt Count (150-450) 10^3/ul MPV (7.4-10.4) fL Neut % (Auto) % Lymph % (Auto) % [place] % (Auto) % Eos % (Auto) % Baso % (Auto) % Absolute Neuts (auto) (1.5-7.7) 10^3/ul Absolute Lymphs (auto) (1.0-4.8) 10^3/ul Absolute Monos (auto) (0-0.8) 10^3/ul Absolute Eos (auto) (0-0.6) 10^3/ul Absolute Basos (auto) (0-0.2) 10^3/ul Absolute Nucleated RBC 10^3/ul Nucleated RBC % Patient Temperature Not Reportable ABG pH 7.15 L* (7.35-7.45) ABG pH (Temp Correct) Pending ABG pCO2 63 H (35-45) mmHg ABG pCO2 (Temp Corrct Pending ABG pO2 103 H (80-100) mmHg ABG pO2 (Temp Correct Pending ABG HCO3 18.8 L (19-31) mmol/L ABG O2 Saturation 98.3 H (94.0-98.0) % ABG Base Excess -7.8 L (-2.0-2.0) mmol/L VBG pH 7.17 L (7.32-7.43) VBG pCO2 65 H (41-51) mmHg VBG pO2 89.0 H (35-45) mmHg VBG HCO3 20.2 L (24-28) mmol/L VBG O2 Saturation 97.1 H (70-80) % VBG Base Excess -5.9 L (0.0-4.0) mmol/L Respiration Rate Not Reportable O2 Delivery Device bipap Ventilator Type Not Reportable Vent Mode Not Reportable FiO2 50 Inspiratory Time Not Reportable PEEP Not Reportable Pressure Support Not Reportable Pressure Control Not Reportable EPAP 8 IPAP 16 BiPAP s/t Sodium (135-145) mmol/L Potassium (3.5-5.0) mmol/L Chloride (101-111) mmol/L Carbon Dioxide (22-32) mmol/L Anion Gap (2-11) mmol/L BUN (6-24) mg/dL Creatinine (0.67-1.17) mg/dL Est GFR ( Amer) (>60) Est GFR (Non-Af Amer) (>60) BUN/Creatinine Ratio (8-20) Glucose (70-100) mg/dL Lactic Acid (0.5-2.0) mmol/L Calcium (8.6-10.3) mg/dL Total Bilirubin (0.2-1.0) mg/dL AST (13-39) U/L ALT (7-52) U/L Alkaline Phosphatase (34-104) U/L CK-MB (CK-2) (0.6-6.3) ng/mL Troponin I (<0.04) ng/mL C-Reactive Protein (<8.01) mg/L B-Natriuretic Peptide 370 H (<=100) pg/mL Total Protein (6.4-8.9) g/dL Albumin (3.2-5.2) g/dL Globulin (2-4) g/dL Albumin/Globulin Ratio (1-3) Microbiology and Other Data: Microbiology 11/03/18 21:00 Aerobic Blood Culture - Preliminary Blood Venous No Growth Day 1 Anaerobic Blood Culture - Preliminary No Growth Day 1 11/03/18 21:00 Aerobic Blood Culture - Preliminary Blood Venous No Growth Day 1 Anaerobic Blood Culture - Preliminary No Growth Day 1 11/03/18 12:44 Urine Culture - Final Urine No Growth (<1,000 CFU/mL) 11/03/18 21:40 Nasal Screen MRSA (PCR) - Final Nasal Mrsa Not Detected 11/03/18 12:44 Influenza Types A,B Antigen - Final Nasopharyngeal Specimen received for Influenza A/B Molecular testing Assess/Plan/Problems-Billing Mr Yen is a 57 yo M who has a h/o advanced COPD, afib s/p ablation x2 and diastolic CHF who presented to the ER with c/o SOB and was admitted for a COPD exacerbation with possible pneumonia. - Patient Problems (1) Acute and chronic respiratory failure with hypoxia Current Visit: Yes Status: Acute Priority: High Code(s): J96.21 - ACUTE AND CHRONIC RESPIRATORY FAILURE WITH HYPOXIA SNOMED Code(s): 42749644 Comment: COPD exacerbation on admission and continued difficulty with SOB. Will continue BiPAP. Continue Abx, nebs and solumedrol. (2) Atrial fibrillation with RVR Current Visit: Yes Status: Acute Code(s): I48.91 - UNSPECIFIED ATRIAL FIBRILLATION SNOMED Code(s): 703322067094590 Comment: Continue metoprolol and xarelto. (3) COPD exacerbation Current Visit: Yes Status: Acute Code(s): J44.1 - CHRONIC OBSTRUCTIVE PULMONARY DISEASE W (ACUTE) EXACERBATION SNOMED Code(s): 149330347 Comment: As above. (4) Pneumonia Current Visit: Yes Status: Acute Priority: High Onset Date: 12/26/14 Code(s): J18.9 - PNEUMONIA, UNSPECIFIED ORGANISM SNOMED Code(s): 106252515 Comment: Continue ceftriaxone and azithromycin. Today is D#4/7. (5) Volume overload Current Visit: Yes Status: Acute Code(s): E87.70 - FLUID OVERLOAD, UNSPECIFIED SNOMED Code(s): 53360634 Comment: Lasix 40 mg iv
[2018-11-06] MEDS: Furosemide IV* 10 MG/ML VIAL (40 MG) IV SCH (21:31)
[2018-11-06] MEDS: Gabapentin CAP(*) 100 MG PO SCH (21:43)
[2018-11-07] MEDS: Albuterol/Ipratropium NEB.SOL* Albuterol 2.5 MG/Ipratropium 0.5 MG 3 ML INH SCH ×5 (00:02→15:06)
[2018-11-07] MEDS: methylPREDNISolone SOD 40 MG* 1 ML VIAL IV SCH ×3 (05:00→16:27)
[2018-11-07 06:34] LABS: Hematocrit 32 % (42-52); Hemoglobin 10.6 g/dl (14.0-18.0); Mean Corpuscular HGB Conc 33 g/dl (31-36); Mean Corpuscular Hemoglobin 33 pg (27-31); Mean Corpuscular Volume 101 fL (80-94); Mean Platelet Volume 7.5 fL (7.4-10.4); Platelet Count 160 10^3/ul (150-450); Red Blood Count 3.17 10^6/ul (4.00-5.40); Red Cell Distribution Width 16 % (10.5-15); White Blood Count 15.2 10^3/ul (3.5-10.8)
[2018-11-07 06:51] LABS: BUN/Creatinine Ratio 27.6 (8-20); Calcium 8.8 mg/dL (8.6-10.3); EGFR African American 95.4 (>60); EGFR Non-African American 78.8 (>60); Potassium 4.1 mmol/L (3.5-5.0)
[2018-11-07] MEDS: Metoprolol Tartrate TAB* 100 MG TAB PO SCH ×3 (09:12→21:31)
[2018-11-07] MEDS: Potassium Chlor TAB* 10 MEQ TAB.ER PO SCH (09:12)
[2018-11-07] MEDS: guaiFENesin ER TAB 600 MG PO SCH (09:13)
[2018-11-07] MEDS: Pantoprazole TAB * 40 MG TAB PO SCH (09:13)
[2018-11-07] MEDS: Rivaroxaban TAB(*) 20 MG TAB PO SCH (09:13)
[2018-11-07] MEDS: Magnesium Oxide TAB* 400 MG PO SCH ×2 (09:13→21:31)
[2018-11-07] MEDS: Furosemide IV* 10 MG/ML VIAL (40 MG) IV SCH ×2 (09:13→16:27)
[2018-11-07] MEDS: Morphine VIAL* 4 MG/ML VIAL (1 ml vial) IV PRN ×3 (09:27→23:35)
[2018-11-07] MEDS: cefTRIAXone(*) 1 GM in NS 0.9% 50 ML* 50 ML IVPB SCH (09:28)
[2018-11-07] MEDS ORDERED: Metoprolol Tartrate IV* 1 MG/ML 5 ML VIAL IV ONE (09:44)
[2018-11-07] MEDS ORDERED: NS 0.9% 250 ML* 250 ML ONE (12:06)
[2018-11-07] MEDS: Azithromycin IV(*) 500 MG in NS 0.9% 250 ML* 250 ML IVPB SCH (12:09)
--- NOTE | 2018-11-07 16:19 | PN ---
Subjective Date of Service: 11/07/18 Interval History: Still sob.mild improvement.not getting sob between episodes Episode of SVT with HR in 140s spontaneous conversion to sinus before med administration Objective Active Medications: Albuterol/Ipratropium (Duoneb (Albuterol 2.5 Mg/Ipratropium 0.5 Mg)) 1 neb INH Q4H PRN PRN Reason: SOB/WHEEZING Furosemide (Lasix Iv*) 40 mg IV 0800,1700 [facility] Gabapentin (Neurontin Cap(*)) 100 mg PO BEDTIME [facility] Last Admin: 11/06/18 21:43 Dose: 100 mg Hydralazine HCl (Apresoline Iv*) 5 mg IV SLOW PU Q6H PRN PRN Reason: SYSTOLIC BP GREATER THAN: Ceftriaxone Sodium 1 gm/ (Sodium Chloride) 50 mls @ 200 mls/hr IVPB Q24H [facility] Stop: 11/11/18 08:59 Last Admin: 11/07/18 09:28 Dose: 200 mls/hr Azithromycin 500 mg/ Sodium (Chloride) 250 mls @ 250 mls/hr IVPB Q24H [facility] Stop: 11/11/18 11:59 Last Admin: 11/07/18 12:09 Dose: 250 mls/hr Magnesium Oxide (Magox 400 Tab*) 400 mg PO BID [facility] Last Admin: 11/07/18 09:13 Dose: 400 mg Methylprednisolone Sodium Succinate (Solu-Medrol 40 Mg) 40 mg IV Q12H [facility] Metoprolol Tartrate (Lopressor Tab*) 100 mg PO BID [facility] Morphine Sulfate (Morphine Vial*) 2 mg IV Q4H PRN PRN Reason: Pain - Mild or air hunger Last Admin: 11/07/18 09:27 Dose: 2 mg Morphine Sulfate (Morphine Oral Concentrate*) 5 mg SL Q2H PRN PRN Reason: air hunger Last Admin: 11/06/18 21:32 Dose: 5 mg Pantoprazole Sodium (Protonix Tab*) 40 mg PO DAILY [facility] Last Admin: 11/07/18 09:13 Dose: 40 mg Potassium Chloride (Klor Con Er Tab*) 10 meq PO EVERY OTHER DAY [facility] Last Admin: 11/07/18 09:12 Dose: 10 meq Rivaroxaban (Xarelto(*)) 20 mg PO DAILY [facility] Last Admin: 11/07/18 09:13 Dose: 20 mg Vital Signs - 8 hr 11/07/18 11/07/18 11/07/18 09:27 11:07 11:31 Pulse Rate 78 Respiratory 22 18 20 Rate O2 Sat by Pulse 94 Oximetry 11/07/18 15:15 Pulse Rate 88 Respiratory 18 Rate O2 Sat by Pulse 98 Oximetry Oxygen Devices in Use Now: Nasal Cannula Eyes: No Scleral Icterus Neck: NL Appearance and Movements; NL JVP Respiratory: - - Bilateral wheezez decreased bilateral air entry Cardiovascular: - - irreg irregular Abdominal: NL Sounds; No Tenderness; No Distention, - Extremities: No Edema, - - 2+ LE Edema Neurological: Alert and Oriented x 3 Result Diagrams: 11/07/18 06:05 11/07/18 06:05 Additional Lab and Data: Lab Results 11/03/18 11/03/18 11/03/18 Range/Units 10:58 10:58 10:58 WBC 19.4 H (3.5-10.8) 10^3/ul RBC 3.78 L (4.00-5.40) 10^6/ul Hgb 12.6 L (14.0-18.0) g/dl Hct 39 L (42-52) % MCV 103 H (80-94) fL MCH 33 H (27-31) pg MCHC 32 (31-36) g/dl RDW 17 H (10.5-15) % Plt Count 324 (150-450) 10^3/ul MPV 7.4 (7.4-10.4) fL Neut % (Auto) 69.9 % Lymph % (Auto) 15.0 % [place] % (Auto) 13.2 % Eos % (Auto) 0.9 % Baso % (Auto) 1.0 % Absolute Neuts (auto) 13.5 H (1.5-7.7) 10^3/ul Absolute Lymphs (auto) 2.9 (1.0-4.8) 10^3/ul Absolute Monos (auto) 2.6 H (0-0.8) 10^3/ul Absolute Eos (auto) 0.2 (0-0.6) 10^3/ul Absolute Basos (auto) 0.2 (0-0.2) 10^3/ul Absolute Nucleated RBC 0 10^3/ul Nucleated RBC % 0.2 Patient Temperature ABG pH (7.35-7.45) ABG pH (Temp Correct) ABG pCO2 (35-45) mmHg ABG pCO2 (Temp Corrct ABG pO2 (80-100) mmHg ABG pO2 (Temp Correct ABG HCO3 (19-31) mmol/L ABG O2 Saturation (94.0-98.0) % ABG Base Excess (-2.0-2.0) mmol/L VBG pH (7.32-7.43) VBG pCO2 (41-51) mmHg VBG pO2 (35-45) mmHg VBG HCO3 (24-28) mmol/L VBG O2 Saturation (70-80) % VBG Base Excess (0.0-4.0) mmol/L Respiration Rate O2 Delivery Device Ventilator Type Vent Mode FiO2 Inspiratory Time PEEP Pressure Support Pressure Control EPAP IPAP BiPAP Sodium 134 L (135-145) mmol/L Potassium 4.3 (3.5-5.0) mmol/L Chloride 103 (101-111) mmol/L Carbon Dioxide 23 (22-32) mmol/L Anion Gap 8 (2-11) mmol/L BUN 7 (6-24) mg/dL Creatinine 0.94 (0.67-1.17) mg/dL Est GFR ( Amer) 100.1 (>60) Est GFR (Non-Af Amer) 82.7 (>60) BUN/Creatinine Ratio 7.4 L (8-20) Glucose 205 H (70-100) mg/dL Lactic Acid 3.5 H* (0.5-2.0) mmol/L Calcium 9.1 (8.6-10.3) mg/dL Total Bilirubin 0.40 (0.2-1.0) mg/dL AST 55 H (13-39) U/L ALT 56 H (7-52) U/L Alkaline Phosphatase 99 (34-104) U/L CK-MB (CK-2) 4.3 (0.6-6.3) ng/mL Troponin I 0.01 (<0.04) ng/mL C-Reactive Protein 2.17 (<8.01) mg/L B-Natriuretic Peptide (<=100) pg/mL Total Protein 6.6 (6.4-8.9) g/dL Albumin 4.1 (3.2-5.2) g/dL Globulin 2.5 (2-4) g/dL Albumin/Globulin Ratio 1.6 (1-3) 11/03/18 11/03/18 11/03/18 Range/Units 10:58 11:03 11:27 WBC (3.5-10.8) 10^3/ul RBC (4.00-5.40) 10^6/ul Hgb (14.0-18.0) g/dl Hct (42-52) % MCV (80-94) fL MCH (27-31) pg MCHC (31-36) g/dl RDW (10.5-15) % Plt Count (150-450) 10^3/ul MPV (7.4-10.4) fL Neut % (Auto) % Lymph % (Auto) % [place] % (Auto) % Eos % (Auto) % Baso % (Auto) % Absolute Neuts (auto) (1.5-7.7) 10^3/ul Absolute Lymphs (auto) (1.0-4.8) 10^3/ul Absolute Monos (auto) (0-0.8) 10^3/ul Absolute Eos (auto) (0-0.6) 10^3/ul Absolute Basos (auto) (0-0.2) 10^3/ul Absolute Nucleated RBC 10^3/ul Nucleated RBC % Patient Temperature Not Reportable ABG pH 7.15 L* (7.35-7.45) ABG pH (Temp Correct) Pending ABG pCO2 63 H (35-45) mmHg ABG pCO2 (Temp Corrct Pending ABG pO2 103 H (80-100) mmHg ABG pO2 (Temp Correct Pending ABG HCO3 18.8 L (19-31) mmol/L ABG O2 Saturation 98.3 H (94.0-98.0) % ABG Base Excess -7.8 L (-2.0-2.0) mmol/L VBG pH 7.17 L (7.32-7.43) VBG pCO2 65 H (41-51) mmHg VBG pO2 89.0 H (35-45) mmHg VBG HCO3 20.2 L (24-28) mmol/L VBG O2 Saturation 97.1 H (70-80) % VBG Base Excess -5.9 L (0.0-4.0) mmol/L Respiration Rate Not Reportable O2 Delivery Device bipap Ventilator Type Not Reportable Vent Mode Not Reportable FiO2 50 Inspiratory Time Not Reportable PEEP Not Reportable Pressure Support Not Reportable Pressure Control Not Reportable EPAP 8 IPAP 16 BiPAP s/t Sodium (135-145) mmol/L Potassium (3.5-5.0) mmol/L Chloride (101-111) mmol/L Carbon Dioxide (22-32) mmol/L Anion Gap (2-11) mmol/L BUN (6-24) mg/dL Creatinine (0.67-1.17) mg/dL Est GFR ( Amer) (>60) Est GFR (Non-Af Amer) (>60) BUN/Creatinine Ratio (8-20) Glucose (70-100) mg/dL Lactic Acid (0.5-2.0) mmol/L Calcium (8.6-10.3) mg/dL Total Bilirubin (0.2-1.0) mg/dL AST (13-39) U/L ALT (7-52) U/L Alkaline Phosphatase (34-104) U/L CK-MB (CK-2) (0.6-6.3) ng/mL Troponin I (<0.04) ng/mL C-Reactive Protein (<8.01) mg/L B-Natriuretic Peptide 370 H (<=100) pg/mL Total Protein (6.4-8.9) g/dL Albumin (3.2-5.2) g/dL Globulin (2-4) g/dL Albumin/Globulin Ratio (1-3) Microbiology and Other Data: Microbiology 11/03/18 21:00 Aerobic Blood Culture - Preliminary Blood Venous No Growth Day 1 Anaerobic Blood Culture - Preliminary No Growth Day 1 11/03/18 21:00 Aerobic Blood Culture - Preliminary Blood Venous No Growth Day 1 Anaerobic Blood Culture - Preliminary No Growth Day 1 11/03/18 12:44 Urine Culture - Final Urine No Growth (<1,000 CFU/mL) 11/03/18 21:40 Nasal Screen MRSA (PCR) - Final Nasal Mrsa Not Detected 11/03/18 12:44 Influenza Types A,B Antigen - Final Nasopharyngeal Specimen received for Influenza A/B Molecular testing Assess/Plan/Problems-Billing Mr Yen is a 57 yo M who has a h/o advanced COPD, afib s/p ablation x2 and diastolic CHF who presented to the ER with c/o SOB and was admitted for a COPD exacerbation with possible pneumonia. - Patient Problems (1) Acute and chronic respiratory failure with hypoxia Current Visit: Yes Status: Acute Priority: High Code(s): J96.21 - ACUTE AND CHRONIC RESPIRATORY FAILURE WITH HYPOXIA SNOMED Code(s): 23768804 Comment: COPD exacerbation on admission and continued difficulty with SOB. Will continue BiPAP. Continue Ceftriaxone ,Azithromycin nebs and solumedrol. Dec solumedrol to 40 mg iv bid and taper as possible.Possibly Contributing to sig edema and this has happened to pt before as well and reports that he has gained >15 pounds in 4 days (2) Atrial fibrillation with RVR Current Visit: Yes Status: Acute Code(s): I48.91 - UNSPECIFIED ATRIAL FIBRILLATION SNOMED Code(s): 315933117639511 Comment: Continue metoprolol and xarelto. Reduced to home dose metoprolol 100 mg po bid (3) COPD exacerbation Current Visit: Yes Status: Acute Code(s): J44.1 - CHRONIC OBSTRUCTIVE PULMONARY DISEASE W (ACUTE) EXACERBATION SNOMED Code(s): 673454525 Comment: As above. (4) Pneumonia Current Visit: Yes Status: Acute Priority: High Onset Date: 12/26/14 Code(s): J18.9 - PNEUMONIA, UNSPECIFIED ORGANISM SNOMED Code(s): 631628693 Comment: Continue ceftriaxone and azithromycin. Today is D#5/. (5) Volume overload Current Visit: Yes Status: Acute Code(s): E87.70 - FLUID OVERLOAD, UNSPECIFIED SNOMED Code(s): 92592992 Comment: Lasix 40 mg iv bid today Repeat CXR today to evaluate contribution of pulmonary edema and eval for worsening pneumonia
[2018-11-07] MEDS: Albuterol/Ipratropium NEB.SOL* Albuterol 2.5 MG/Ipratropium 0.5 MG 3 ML INH PRN (20:12)
[2018-11-07] MEDS: Gabapentin CAP(*) 100 MG PO SCH (21:29)
[2018-11-08] MEDS: Albuterol/Ipratropium NEB.SOL* Albuterol 2.5 MG/Ipratropium 0.5 MG 3 ML INH PRN ×4 (00:03→21:10)
[2018-11-08] MEDS: methylPREDNISolone SOD 40 MG* 1 ML VIAL IV SCH ×2 (04:57→17:21)
[2018-11-08] MEDS: Morphine VIAL* 4 MG/ML VIAL (1 ml vial) IV PRN ×4 (04:57→21:02)
[2018-11-08 06:54] LABS: Hematocrit 33 % (42-52); Hemoglobin 10.9 g/dl (14.0-18.0); Mean Corpuscular HGB Conc 33 g/dl (31-36); Mean Corpuscular Hemoglobin 33 pg (27-31); Mean Corpuscular Volume 100 fL (80-94); Mean Platelet Volume 7.3 fL (7.4-10.4); Platelet Count 166 10^3/ul (150-450); Red Cell Distribution Width 16 % (10.5-15); White Blood Count 17.9 10^3/ul (3.5-10.8)
[2018-11-08 07:15] LABS: BUN/Creatinine Ratio 30.1 (8-20); Calcium 9.1 mg/dL (8.6-10.3); EGFR African American 101.3 (>60); EGFR Non-African American 83.7 (>60); Potassium 3.8 mmol/L (3.5-5.0)
[2018-11-08 07:59] LABS: ABS Basophils 0 10^3/ul (0-0.2); ABS Eosinophils 0 10^3/ul (0-0.6); ABS Lymphocytes 0.5 10^3/ul (1.0-4.8); ABS Monocytes 1.5 10^3/ul (0-0.8); ABS Neutrophils 15.9 10^3/ul (1.5-7.7); ABS Nucleated RBC 0 10^3/ul; Eosinophil % 0 %; Lymphocyte % 2.7 %; Nucleated Red Blood Cells % 0.2
--- NOTE | 2018-11-08 08:48 | PN ---
Subjective Date of Service: 11/08/18 Interval History: HD # 6 on 11/08/18 57 yo M with PMH GOLD 3-4 COPD, HFpEF, persistent A Fib s/p 2 ablation who presented with SOB and hypoxia thought to be multifactorial from COPD exacerbation, possible underlying PNA and CHF exacerbation. Overnight no acute events, VSS: 149/88, 95% on RA, 77, 16, 97.8 T Max UOP -3.5L in 24 hour, -2.2 L for balance,, no BM Seen this afternoon resting in bed, says today he feels tight in terms of SOB but denies CP, no abdominal pain but does have mild distention, does have copious stool in the ostomy, no nausea, no headache, tolerating diet. Otherwise very pleasant and well. Objective Active Medications: Albuterol/Ipratropium (Duoneb (Albuterol 2.5 Mg/Ipratropium 0.5 Mg)) 1 neb INH Q4H PRN PRN Reason: SOB/WHEEZING Last Admin: 11/08/18 04:08 Dose: 1 neb Furosemide (Lasix Iv*) 40 mg IV 0800,1700 [facility] Last Admin: 11/07/18 16:27 Dose: 40 mg Gabapentin (Neurontin Cap(*)) 100 mg PO BEDTIME [facility] Last Admin: 11/07/18 21:29 Dose: 100 mg Hydralazine HCl (Apresoline Iv*) 5 mg IV SLOW PU Q6H PRN PRN Reason: SYSTOLIC BP GREATER THAN: Ceftriaxone Sodium 1 gm/ (Sodium Chloride) 50 mls @ 200 mls/hr IVPB Q24H [facility] Stop: 11/11/18 08:59 Last Admin: 11/07/18 09:28 Dose: 200 mls/hr Azithromycin 500 mg/ Sodium (Chloride) 250 mls @ 250 mls/hr IVPB Q24H [facility] Stop: 11/11/18 11:59 Last Admin: 11/07/18 12:09 Dose: 250 mls/hr Magnesium Oxide (Magox 400 Tab*) 400 mg PO BID [facility] Last Admin: 11/07/18 21:31 Dose: 400 mg Methylprednisolone Sodium Succinate (Solu-Medrol 40 Mg) 40 mg IV Q12H [facility] Last Admin: 11/08/18 04:57 Dose: 40 mg Metoprolol Tartrate (Lopressor Tab*) 100 mg PO BID [facility] Last Admin: 11/07/18 21:31 Dose: 100 mg Morphine Sulfate (Morphine Vial*) 2 mg IV Q4H PRN PRN Reason: Pain - Mild or air hunger Last Admin: 11/08/18 04:57 Dose: 2 mg Morphine Sulfate (Morphine Oral Concentrate*) 5 mg SL Q2H PRN PRN Reason: air hunger Last Admin: 11/06/18 21:32 Dose: 5 mg Pantoprazole Sodium (Protonix Tab*) 40 mg PO DAILY [facility] Last Admin: 11/07/18 09:13 Dose: 40 mg Potassium Chloride (Klor Con Er Tab*) 10 meq PO EVERY OTHER DAY [facility] Last Admin: 11/07/18 09:12 Dose: 10 meq Rivaroxaban (Xarelto(*)) 20 mg PO DAILY [facility] Last Admin: 11/07/18 09:13 Dose: 20 mg Vital Signs - 8 hr 11/08/18 11/08/18 11/08/18 00:45 03:16 04:08 Temperature 97.4 F Pulse Rate 81 68 Respiratory 18 18 20 Rate Blood Pressure 146/86 (mmHg) O2 Sat by Pulse 98 100 Oximetry 11/08/18 11/08/18 11/08/18 04:57 06:05 07:16 Temperature Pulse Rate Respiratory 20 18 20 Rate Blood Pressure (mmHg) O2 Sat by Pulse Oximetry 11/08/18 11/08/18 07:20 07:37 Temperature 97.8 F Pulse Rate 77 Respiratory 20 16 Rate Blood Pressure 149/88 (mmHg) O2 Sat by Pulse 95 Oximetry Oxygen Devices in Use Now: Nasal Cannula Appearance: Pleasant man resting in bed with NC Eyes: - - Kunal sclera Ears/Nose/Mouth/Throat: - - Poor denition Neck: NL Appearance and Movements; NL JVP, Trachea Midline Respiratory: Symmetrical Chest Expansion and Respiratory Effort, Clear to Percussion, - - Distant breath sounds + crackles blt, scant E wheeze Cardiovascular: NL Sounds; No Murmurs; No JVD, - - JVD to ~8cm irreg irreg no nmurmur Abdominal: - - NABS, ostomy in place with stool, mild distentnded non tender Lymphatic: No Cervical Adenopathy Extremities: - - 3+ edema to groin Skin: No Rash or Ulcers Neurological: Alert and Oriented x 3 Result Diagrams: 11/08/18 06:27 11/08/18 06:27 Microbiology and Other Data: Microbiology 11/03/18 21:00 Aerobic Blood Culture - Preliminary Blood Venous No Growth Day 1 Anaerobic Blood Culture - Preliminary No Growth Day 1 11/03/18 21:00 Aerobic Blood Culture - Preliminary Blood Venous No Growth Day 1 Anaerobic Blood Culture - Preliminary No Growth Day 1 11/03/18 12:44 Urine Culture - Final Urine No Growth (<1,000 CFU/mL) 11/03/18 21:40 Nasal Screen MRSA (PCR) - Final Nasal Mrsa Not Detected 11/03/18 12:44 Influenza Types A,B Antigen - Final Nasopharyngeal Specimen received for Influenza A/B Molecular testing Assess/Plan/Problems-Billing Assessment: 57 yo M with H 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 - Patient Problems (1) Acute and chronic respiratory failure with hypoxia Current Visit: Yes Status: Acute Priority: High Code(s): J96.21 - ACUTE AND CHRONIC RESPIRATORY FAILURE WITH HYPOXIA SNOMED Code(s): 54604752 Comment: -COPD exacerbation on admission and continued difficulty with SOB -BiPAP QHS (already on home CPAP and was transitioning) -Continue Ceftriaxone ,Azithromycin nebs and solumedrol Day 6/ 7 on 11/08 -Dec solumedrol to 40 mg iv bid and taper as possible. Taper to PO pred 50 tomorrow 11/09 as contributing to edema -On morphine for air hunger (2) COPD exacerbation Current Visit: Yes Status: Acute Code(s): J44.1 - CHRONIC OBSTRUCTIVE PULMONARY DISEASE W (ACUTE) EXACERBATION SNOMED Code(s): 622157834 Comment: As above. (3) Pneumonia Current Visit: Yes Status: Acute Priority: High Onset Date: 12/26/14 Code(s): J18.9 - PNEUMONIA, UNSPECIFIED ORGANISM SNOMED Code(s): 117146274 Comment: Continue ceftriaxone and azithromycin. Today is D#6/7. (4) CHF exacerbation Current Visit: Yes Status: Acute Code(s): I50.9 - HEART FAILURE, UNSPECIFIED SNOMED Code(s): 54097424 Comment: HFpEF from prior echos (ef 55-60% IN 07/2018), none done on thius admission -Diuresing well on 40mg IV BID of lasix, monitor K continue (5) Atrial fibrillation with RVR Current Visit: Yes Status: Acute Code(s): I48.91 - UNSPECIFIED ATRIAL FIBRILLATION SNOMED Code(s): 683952091168974 Comment: - Continue metoprolol and xarelto. - Reduced to home dose metoprolol 100 mg po bid (6) Daily consumption of alcohol Current Visit: No Status: Acute Priority: High Onset Date: 12/26/14 Code (s): VVB4802 - SNOMED Code(s): 263765763 Comment: -No e/o withdrawal here (7) Constipation Current Visit: Yes Status: Acute Code(s): K59.00 - CONSTIPATION, UNSPECIFIED SNOMED Code(s): 21300917 Comment: Likely 2/2 to opiates, d/c oral morphine, space IV for air hunger to q 4 - Start Senna 11/08 (8) DVT prophylaxis Current Visit: No Status: Acute Priority: Low Onset Date: 12/26/14 Code( s): DSQ0812 - SNOMED Code(s): 212497781 Comment: - Xarelto Status and Disposition: Inpatient, NEEDS further dieursis, home O2 is PRN 2L
[2018-11-08] MEDS: Rivaroxaban TAB(*) 20 MG TAB PO SCH (08:49)
[2018-11-08] MEDS: Potassium Chlor TAB* 10 MEQ TAB.ER PO SCH (08:50)
[2018-11-08] MEDS: Pantoprazole TAB * 40 MG TAB PO SCH (08:50)
[2018-11-08] MEDS: Magnesium Oxide TAB* 400 MG PO SCH ×2 (08:51→21:01)
[2018-11-08] MEDS: Metoprolol Tartrate TAB* 100 MG TAB PO SCH ×2 (08:51→21:02)
[2018-11-08] MEDS: cefTRIAXone(*) 1 GM in NS 0.9% 50 ML* 50 ML IVPB SCH (08:56)
[2018-11-08] MEDS: Furosemide IV* 10 MG/ML VIAL (40 MG) IV SCH ×2 (08:57→17:21)
[2018-11-08] MEDS ORDERED: Acetaminophen TAB* 325 MG PO PRN (12:55)
[2018-11-08] MEDS: Senna TAB PO SCH (13:49)
[2018-11-08] MEDS: Azithromycin IV(*) 500 MG in NS 0.9% 250 ML* 250 ML IVPB SCH (13:49)
[2018-11-08] MEDS: Gabapentin CAP(*) 100 MG PO SCH (21:01)
[2018-11-09] MEDS: Albuterol/Ipratropium NEB.SOL* Albuterol 2.5 MG/Ipratropium 0.5 MG 3 ML INH PRN ×3 (02:54→13:59)
[2018-11-09] MEDS: Morphine VIAL* 4 MG/ML VIAL (1 ml vial) IV PRN (05:06)
[2018-11-09] MEDS: Nitroglycerin TAB 0.4 MG* 0.4 MG TAB SL PRN ×2 (06:00→12:59)
[2018-11-09 06:47] LABS: Hematocrit 35 % (42-52); Hemoglobin 11.5 g/dl (14.0-18.0); Mean Corpuscular HGB Conc 33 g/dl (31-36); Mean Corpuscular Hemoglobin 33 pg (27-31); Mean Corpuscular Volume 100 fL (80-94); Mean Platelet Volume 7.5 fL (7.4-10.4); Platelet Count 172 10^3/ul (150-450); Red Blood Count 3.51 10^6/ul (4.00-5.40); Red Cell Distribution Width 16 % (10.5-15); White Blood Count 17.9 10^3/ul (3.5-10.8)
[2018-11-09 06:54] LABS: BUN/Creatinine Ratio 33.3 (8-20); Calcium 9.6 mg/dL (8.6-10.3); EGFR African American 94.3 (>60); EGFR Non-African American 77.9 (>60); Magnesium 1.9 mg/dL (1.9-2.7)
--- NOTE | 2018-11-09 08:57 | PN ---
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 Overnight, pt complained of R sided burning chest pain, was given morphine for this, no change in pain, and EKG was ordered overnight that showed NSR with ? STD in V4/V5, was given nitro. VSS throughout with BP max 140s/90s --UOP roughly -3L in 24 hour, -2 L for balance, no BM Seen this morning resting in bed, says today he feels tight in terms of SOB but denies CP, no abdominal pain but does have mild distention, does have copious stool in the ostomy, no nausea, no headache, tolerating diet. Otherwise very pleasant and well. Objective Active Medications: Acetaminophen (Tylenol Tab*) 650 mg PO Q6H PRN PRN Reason: FEVER/PAIN Albuterol/Ipratropium (Duoneb (Albuterol 2.5 Mg/Ipratropium 0.5 Mg)) 1 neb INH Q4H PRN PRN Reason: SOB/WHEEZING Last Admin: 11/09/18 02:54 Dose: 1 neb Furosemide (Lasix Iv*) 40 mg IV 0800,1700 [facility] Last Admin: 11/08/18 17:21 Dose: 40 mg Gabapentin (Neurontin Cap(*)) 100 mg PO BEDTIME [facility] Last Admin: 11/08/18 21:01 Dose: 100 mg Hydralazine HCl (Apresoline Iv*) 5 mg IV SLOW PU Q6H PRN PRN Reason: SYSTOLIC BP GREATER THAN: Ceftriaxone Sodium 1 gm/ (Sodium Chloride) 50 mls @ 200 mls/hr IVPB Q24H [facility] Stop: 11/11/18 08:59 Last Admin: 11/08/18 08:56 Dose: 200 mls/hr Azithromycin 500 mg/ Sodium (Chloride) 250 mls @ 250 mls/hr IVPB Q24H [facility] Stop: 11/11/18 11:59 Last Admin: 11/08/18 13:49 Dose: 250 mls/hr Magnesium Oxide (Magox 400 Tab*) 400 mg PO BID [facility] Last Admin: 11/08/18 21:01 Dose: 400 mg Metoprolol Tartrate (Lopressor Tab*) 100 mg PO BID [facility] Last Admin: 11/08/18 21:02 Dose: 100 mg Morphine Sulfate (Morphine Vial*) 2 mg IV Q4H PRN PRN Reason: Pain - Mild or air hunger Last Admin: 11/09/18 05:06 Dose: 2 mg Nitroglycerin (Nitroglycerin Tab 0.4 Mg*) 0.4 mg SL Q5M PRN PRN Reason: ANGINA Last Admin: 11/09/18 06:00 Dose: 0.4 mg Pantoprazole Sodium (Protonix Tab*) 40 mg PO DAILY [facility] Last Admin: 11/08/18 08:50 Dose: 40 mg Potassium Chloride (Klor Con Er Tab*) 10 meq PO EVERY OTHER DAY [facility] Last Admin: 11/08/18 08:50 Dose: 10 meq Prednisone (Deltasone Tab*) 50 mg PO DAILY [facility] Rivaroxaban (Xarelto(*)) 20 mg PO DAILY [facility] Last Admin: 11/08/18 08:49 Dose: 20 mg Senna (Senokot Tab*) 1 tab PO DAILY [facility] Last Admin: 11/08/18 13:49 Dose: 1 tab Vital Signs - 8 hr 11/09/18 11/09/18 11/09/18 02:56 03:07 05:01 Temperature 98.4 F 97.6 F Pulse Rate 61 70 76 Respiratory 16 20 18 Rate Blood Pressure 151/97 144/101 (mmHg) O2 Sat by Pulse 99 100 100 Oximetry 11/09/18 11/09/18 11/09/18 05:06 06:10 06:11 Temperature Pulse Rate Respiratory 18 18 Rate Blood Pressure 104/86 (mmHg) O2 Sat by Pulse Oximetry Oxygen Devices in Use Now: Nasal Cannula Appearance: Pleasant man in NAD Eyes: No Scleral Icterus Ears/Nose/Mouth/Throat: Mucous Membranes Moist Neck: NL Appearance and Movements; NL JVP, Trachea Midline Respiratory: Symmetrical Chest Expansion and Respiratory Effort, - - mild crackles at bases Cardiovascular: NL Sounds; No Murmurs; No JVD Abdominal: NL Sounds; No Tenderness; No Distention, No Hepatosplenomegaly, - - Ostomy in place Lymphatic: No Cervical Adenopathy Extremities: No Edema Skin: No Rash or Ulcers Neurological: Alert and Oriented x 3 Result Diagrams: 11/09/18 06:07 11/09/18 06:07 Microbiology and Other Data: Microbiology 11/03/18 21:00 Aerobic Blood Culture - Preliminary Blood Venous No Growth Day 1 Anaerobic Blood Culture - Preliminary No Growth Day 1 11/03/18 21:00 Aerobic Blood Culture - Preliminary Blood Venous No Growth Day 1 Anaerobic Blood Culture - Preliminary No Growth Day 1 11/03/18 12:44 Urine Culture - Final Urine No Growth (<1,000 CFU/mL) 11/03/18 21:40 Nasal Screen MRSA (PCR) - Final Nasal Mrsa Not Detected 11/03/18 12:44 Influenza Types A,B Antigen - Final Nasopharyngeal Specimen received for Influenza A/B Molecular testing Assess/Plan/Problems-Billing Assessment: 57 yo M with PMH 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 Remains diuresing as able. - Patient Problems (1) Acute and chronic respiratory failure with hypoxia Current Visit: Yes Status: Acute Priority: High Code(s): J96.21 - ACUTE AND CHRONIC RESPIRATORY FAILURE WITH HYPOXIA SNOMED Code(s): 67463736 Comment: -COPD exacerbation on admission and continued difficulty with SOB -BiPAP QHS (already on home CPAP and was transitioning) -Continue Ceftriaxone ,Azithromycin nebs and solumedrol Day 03/27 on 11/09 -Dec solumedrol to 40 mg iv bid and taper as possible. Today at PO pred 50mg, taper as able -On morphine for air hunger, unsure if he needs this and will speak with nursing and see if he is asking more for pain (2) COPD exacerbation Current Visit: Yes Status: Acute Code(s): J44.1 - CHRONIC OBSTRUCTIVE PULMONARY DISEASE W (ACUTE) EXACERBATION SNOMED Code(s): 589048460 Comment: As above. (3) Atypical chest pain Current Visit: Yes Status: Acute Code(s): R07.89 - OTHER CHEST PAIN SNOMED Code(s): 836289682 Comment: chest pain breifly overnight, EKG with no clear acute findings -Will add on troponin (flat), will monitor throughout day (4) Pneumonia Current Visit: Yes Status: Acute Priority: High Onset Date: 12/26/14 Code(s): J18.9 - PNEUMONIA, UNSPECIFIED ORGANISM SNOMED Code(s): 485615323 Comment: Continue ceftriaxone and azithromycin. Today is D#03/27. (5) CHF exacerbation Current Visit: Yes Status: Acute Code(s): I50.9 - HEART FAILURE, UNSPECIFIED SNOMED Code(s): 74107593 Comment: HFpEF from prior echos (ef 55-60% IN 07/2018), none done on thius admission -Diuresing well on 40mg IV BID of lasix, monitor K continue until closer to dry weight (6) Atrial fibrillation with RVR Current Visit: Yes Status: Acute Code(s): I48.91 - UNSPECIFIED ATRIAL FIBRILLATION SNOMED Code(s): 534191735247997 Comment: - Continue metoprolol and xarelto. - Reduced to home dose metoprolol 100 mg po bid (7) Daily consumption of alcohol Current Visit: No Status: Acute Priority: High Onset Date: 12/26/14 Code (s): [id number] - SNOMED Code(s): 235944320 Comment: -No e/o withdrawal here (8) Constipation Current Visit: Yes Status: Acute Code(s): K59.00 - CONSTIPATION, UNSPECIFIED SNOMED Code(s): 25331776 Comment: Likely 2/2 to opiates, d/c oral morphine, and today IV morphine, no clear indication,c an take low dose Tramadol for severe pain - Start Senna 11/08 (9) DVT prophylaxis Current Visit: No Status: Acute Priority: Low Onset Date: 12/26/14 Code( s): DNJ7770 - SNOMED Code(s): 709658550 Comment: - Xarelto Status and Disposition: Inpatient, NEEDS further dieursis, home O2 is PRN 2L
[2018-11-09 09:21] LABS: Troponin I 0.02 ng/mL (<0.04)
[2018-11-09] MEDS: Metoprolol Tartrate TAB* 100 MG TAB PO SCH ×2 (09:30→21:34)
[2018-11-09] MEDS: Furosemide IV* 10 MG/ML VIAL (40 MG) IV SCH ×2 (09:35→18:45)
[2018-11-09] MEDS: Rivaroxaban TAB(*) 20 MG TAB PO SCH (09:39)
[2018-11-09] MEDS: predniSONE TAB* 50 MG PO SCH (09:39)
[2018-11-09] MEDS: Magnesium Oxide TAB* 400 MG PO SCH ×2 (09:40→21:35)
[2018-11-09] MEDS: cefTRIAXone(*) 1 GM in NS 0.9% 50 ML* 50 ML IVPB SCH (09:40)
[2018-11-09] MEDS: Pantoprazole TAB * 40 MG TAB PO SCH (09:41)
[2018-11-09] MEDS: Senna TAB PO SCH (09:42)
[2018-11-09] MEDS ORDERED: NS 0.9% 250 ML* 250 ML ONE (12:04)
[2018-11-09] MEDS: Azithromycin IV(*) 500 MG in NS 0.9% 250 ML* 250 ML IVPB SCH (12:32)
[2018-11-09] MEDS ORDERED: Sodium Chloride(INHALANT) 3%* 4 ML NEB.SOLN INH SCH (14:00)
[2018-11-09] MEDS ORDERED: Diltiazem IV* 5 MG/ML 5 ML VIAL (for loading dose/IV Push) (25 MG) IV SLOW PU ONE ×2 (17:39→17:55)
[2018-11-09] MEDS ORDERED: Diltiazem IV* 5 MG/ML 5 ML VIAL (for loading dose/IV Push) (25 MG) ONE ×2 (17:40→17:55)
[2018-11-09] MEDS ORDERED: Diltiazem IV VIAL* 125 MG in NS 0.9% 100 ML* 100 ML IV SCH (18:30)
--- NOTE | 2018-11-09 19:07 | PN ---
Hospitalist Progress Note Date of Service: 11/09/18 Called to bedside of patient with HR of 150-170, found to be in flutter 1:1, he is having mild R sided chest pain and shortness of breath. His VSS otherwise He has a complicated hx of PAF, did have ablation at [place], which failed and hx of failed Tikosyn and failed amiodarone 2/2 to toxicity in late 2017. He is currently rate controlled with Metoprolol 100 BID in this hospitlization Last K-4 Last Mag 1.9 Other cardiac hx Sick sinus syndrome s/p PPM in 10/25/2017 Ablation attempt 12/2017 No e/o CAD that I can see, transient cardiomyopathy in early 2017 tachycardia induced, last echo recovered 07/2018 EF 55-60% I gave him 10mg Diltiazem at the bedside x 2 which he then reemitted to sinus 80s afterwards, repeat EKG was done which showed no new ischemia -Pt relapsed to flutter after first dose and then responsive after second dose, though HR began increasing again to low 100's and decision to start a diltiazem gtt at 5mg/hr was made -I will ensure he gets his dose of oral metop now I did call Dr. Dickens who is front office medical assistant to determine next best steps given pts failure of amiodarone -Metoprolol pushes can be used on top of dilt for acute symptomatic flutter -Consider Digoxin loading -We will continue to optimize his pulmonary status (here for PNA, COPD exacerbation which has been complicated by volume overload now requiring diuresis) which is likely the trigger for his flutter -Dr. Dickens is on 11/09 overnight and can be reached for further rate control issues if above fails
[2018-11-09] MEDS ORDERED: LORazepam TAB(*) 0.5 MG PO PRN (19:49)
[2018-11-09] MEDS: Gabapentin CAP(*) 100 MG PO SCH (21:34)
[2018-11-10] MEDS: Albuterol/Ipratropium NEB.SOL* Albuterol 2.5 MG/Ipratropium 0.5 MG 3 ML INH PRN ×2 (00:56→14:10)
[2018-11-10 06:22] LABS: Hematocrit 37 % (42-52); Hemoglobin 12.3 g/dl (14.0-18.0); Mean Corpuscular HGB Conc 33 g/dl (31-36); Mean Corpuscular Hemoglobin 33 pg (27-31); Mean Corpuscular Volume 100 fL (80-94); Mean Platelet Volume 7.9 fL (7.4-10.4); Platelet Count 195 10^3/ul (150-450); Red Blood Count 3.72 10^6/ul (4.00-5.40); Red Cell Distribution Width 16 % (10.5-15)
[2018-11-10 06:36] LABS: Calcium 9.6 mg/dL (8.6-10.3); Magnesium 1.9 mg/dL (1.9-2.7); Potassium 3.7 mmol/L (3.5-5.0)
[2018-11-10 06:42] LABS: EGFR African American 96.5 (>60); EGFR Non-African American 79.8 (>60)
[2018-11-10 06:51] LABS: Immature Granulocytes 7 % (0-9); Lymphocytes % 5 %; Metamyelocytes % 3 % (0-2); Microcytosis 1+; Monocytes % 6 %; Myelocytes % 2 % (0-1); Neutrophil % 81 %; Polychromasia 1+
[2018-11-10 06:52] LABS: ABS Basophils 0 10^3/ul (0-0.2); ABS Eosinophils 0 10^3/ul (0-0.6); ABS Lymphocytes 1.3 10^3/ul (1.0-4.8); ABS Monocytes 2.3 10^3/ul (0-0.8); ABS Neutrophils 18.3 10^3/ul (1.5-7.7); ABS Nucleated RBC 0 10^3/ul
--- NOTE | 2018-11-10 07:57 | PN ---
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 Yesterday evening pt with persistent intermittent A Flutter responsive to Diltiazem without any hypotension or compromise, he remained on Diltiazem gtt overnight at 5mg/hr. He had breakthrough A flutter at rate 150 at 2AM and 5: 30AM and symptomatic at the time. Repeat EKG from yesterday showing NSR. Other VSS, pressure remained stable, afebrile, satting well on 2L NC. UOP roughly -1.2L in 24 hour, Even for balance, no BM Seen this morning resting in bed, says today he feels tight in terms of SOB but denies CP, no abdominal pain but does have mild distention, does have copious stool in the ostomy, no nausea, no headache, tolerating diet. Otherwise very pleasant and well. Objective Active Medications: Acetaminophen (Tylenol Tab*) 650 mg PO Q6H PRN PRN Reason: FEVER/PAIN Albuterol/Ipratropium (Duoneb (Albuterol 2.5 Mg/Ipratropium 0.5 Mg)) 1 neb INH Q4H PRN PRN Reason: SOB/WHEEZING Last Admin: 11/10/18 00:56 Dose: 1 neb Furosemide (Lasix Iv*) 40 mg IV 0800,1700 [facility] Last Admin: 11/09/18 18:45 Dose: 40 mg Gabapentin (Neurontin Cap(*)) 100 mg PO BEDTIME [facility] Last Admin: 11/09/18 21:34 Dose: 100 mg Hydralazine HCl (Apresoline Iv*) 5 mg IV SLOW PU Q6H PRN PRN Reason: SYSTOLIC BP GREATER THAN: Ceftriaxone Sodium 1 gm/ (Sodium Chloride) 50 mls @ 200 mls/hr IVPB Q24H [facility] Stop: 11/11/18 08:59 Last Admin: 11/09/18 09:40 Dose: 200 mls/hr Azithromycin 500 mg/ Sodium (Chloride) 250 mls @ 250 mls/hr IVPB Q24H [facility] Stop: 11/11/18 11:59 Last Admin: 11/09/18 12:32 Dose: 250 mls/hr Diltiazem HCl 125 mg/ Sodium (Chloride) 125 mls @ 5 mls/hr IV Q24H [facility]; Protocol Last Admin: 11/09/18 19:28 Dose: 5 mls/hr Lorazepam (Ativan Tab(*)) 0.5 mg PO Q4H PRN PRN Reason: ANXIETY Last Admin: 11/09/18 21:33 Dose: 0.5 mg Magnesium Oxide (Magox 400 Tab*) 400 mg PO BID [facility] Last Admin: 11/09/18 21:35 Dose: 400 mg Metoprolol Tartrate (Lopressor Tab*) 100 mg PO BID [facility] Last Admin: 11/09/18 21:34 Dose: 100 mg Nitroglycerin (Nitroglycerin Tab 0.4 Mg*) 0.4 mg SL Q5M PRN PRN Reason: ANGINA Last Admin: 11/09/18 12:59 Dose: 0.4 mg Pantoprazole Sodium (Protonix Tab*) 40 mg PO DAILY [facility] Last Admin: 11/09/18 09:41 Dose: 40 mg Potassium Chloride (Klor Con Er Tab*) 10 meq PO EVERY OTHER DAY [facility] Last Admin: 11/08/18 08:50 Dose: 10 meq Prednisone (Deltasone Tab*) 50 mg PO DAILY [facility] Last Admin: 11/09/18 09:39 Dose: 50 mg Rivaroxaban (Xarelto(*)) 20 mg PO DAILY [facility] Last Admin: 11/09/18 09:39 Dose: 20 mg Senna (Senokot Tab*) 1 tab PO DAILY [facility] Last Admin: 11/09/18 09:42 Dose: 1 tab Tramadol HCl (Ultram*) 50 mg PO Q12H PRN PRN Reason: PAIN Vital Signs - 8 hr 11/09/18 11/10/18 11/10/18 23:55 00:25 00:39 Temperature Pulse Rate Respiratory 20 Rate Blood Pressure 121/69 112/76 (mmHg) O2 Sat by Pulse Oximetry 11/10/18 11/10/18 11/10/18 00:57 01:42 02:40 Temperature Pulse Rate 73 Respiratory 20 Rate Blood Pressure 114/86 146/89 (mmHg) O2 Sat by Pulse 99 Oximetry 11/10/18 11/10/18 11/10/18 03:19 03:39 05:27 Temperature 97.8 F Pulse Rate Respiratory 16 Rate Blood Pressure 136/75 134/92 (mmHg) O2 Sat by Pulse Oximetry 11/10/18 11/10/18 05:46 07:33 Temperature 97.9 F Pulse Rate 63 Respiratory 16 Rate Blood Pressure 128/72 113/74 (mmHg) O2 Sat by Pulse 95 Oximetry Oxygen Devices in Use Now: None, Nasal Cannula Appearance: Well appearing man sitting up in bed, does breath with pursed lips Ears/Nose/Mouth/Throat: NL Teeth, Lips, Gums, Mucous Membranes Moist Neck: NL Appearance and Movements; NL JVP Respiratory: Symmetrical Chest Expansion and Respiratory Effort, - - E wheeze, distant Cardiovascular: NL Sounds; No Murmurs; No JVD, RRR, - - sinus at time of my exam Abdominal: NL Sounds; No Tenderness; No Distention, No Hepatosplenomegaly Lymphatic: No Cervical Adenopathy Extremities: - - 3+ edema Skin: No Rash or Ulcers Neurological: Alert and Oriented x 3 Result Diagrams: 11/10/18 05:50 11/10/18 12:11 Additional Lab and Data: Lab Results 11/03/18 11/03/18 11/03/18 Range/Units 10:58 10:58 10:58 WBC 19.4 H (3.5-10.8) 10^3/ul RBC 3.78 L (4.00-5.40) 10^6/ul Hgb 12.6 L (14.0-18.0) g/dl Hct 39 L (42-52) % MCV 103 H (80-94) fL MCH 33 H (27-31) pg MCHC 32 (31-36) g/dl RDW 17 H (10.5-15) % Plt Count 324 (150-450) 10^3/ul MPV 7.4 (7.4-10.4) fL Neut % (Auto) 69.9 % Lymph % (Auto) 15.0 % [place] % (Auto) 13.2 % Eos % (Auto) 0.9 % Baso % (Auto) 1.0 % Absolute Neuts (auto) 13.5 H (1.5-7.7) 10^3/ul Absolute Lymphs (auto) 2.9 (1.0-4.8) 10^3/ul Absolute Monos (auto) 2.6 H (0-0.8) 10^3/ul Absolute Eos (auto) 0.2 (0-0.6) 10^3/ul Absolute Basos (auto) 0.2 (0-0.2) 10^3/ul Absolute Nucleated RBC 0 10^3/ul Nucleated RBC % 0.2 Patient Temperature ABG pH (7.35-7.45) ABG pH (Temp Correct) ABG pCO2 (35-45) mmHg ABG pCO2 (Temp Corrct ABG pO2 (80-100) mmHg ABG pO2 (Temp Correct ABG HCO3 (19-31) mmol/L ABG O2 Saturation (94.0-98.0) % ABG Base Excess (-2.0-2.0) mmol/L VBG pH (7.32-7.43) VBG pCO2 (41-51) mmHg VBG pO2 (35-45) mmHg VBG HCO3 (24-28) mmol/L VBG O2 Saturation (70-80) % VBG Base Excess (0.0-4.0) mmol/L Respiration Rate O2 Delivery Device Ventilator Type Vent Mode FiO2 Inspiratory Time PEEP Pressure Support Pressure Control EPAP IPAP BiPAP Sodium 134 L (135-145) mmol/L Potassium 4.3 (3.5-5.0) mmol/L Chloride 103 (101-111) mmol/L Carbon Dioxide 23 (22-32) mmol/L Anion Gap 8 (2-11) mmol/L BUN 7 (6-24) mg/dL Creatinine 0.94 (0.67-1.17) mg/dL Est GFR ( Amer) 100.1 (>60) Est GFR (Non-Af Amer) 82.7 (>60) BUN/Creatinine Ratio 7.4 L (8-20) Glucose 205 H (70-100) mg/dL Lactic Acid 3.5 H* (0.5-2.0) mmol/L Calcium 9.1 (8.6-10.3) mg/dL Total Bilirubin 0.40 (0.2-1.0) mg/dL AST 55 H (13-39) U/L ALT 56 H (7-52) U/L Alkaline Phosphatase 99 (34-104) U/L CK-MB (CK-2) 4.3 (0.6-6.3) ng/mL Troponin I 0.01 (<0.04) ng/mL C-Reactive Protein 2.17 (<8.01) mg/L B-Natriuretic Peptide (<=100) pg/mL Total Protein 6.6 (6.4-8.9) g/dL Albumin 4.1 (3.2-5.2) g/dL Globulin 2.5 (2-4) g/dL Albumin/Globulin Ratio 1.6 (1-3) 11/03/18 11/03/18 11/03/18 Range/Units 10:58 11:03 11:27 WBC (3.5-10.8) 10^3/ul RBC (4.00-5.40) 10^6/ul Hgb (14.0-18.0) g/dl Hct (42-52) % MCV (80-94) fL MCH (27-31) pg MCHC (31-36) g/dl RDW (10.5-15) % Plt Count (150-450) 10^3/ul MPV (7.4-10.4) fL Neut % (Auto) % Lymph % (Auto) % [place] % (Auto) % Eos % (Auto) % Baso % (Auto) % Absolute Neuts (auto) (1.5-7.7) 10^3/ul Absolute Lymphs (auto) (1.0-4.8) 10^3/ul Absolute Monos (auto) (0-0.8) 10^3/ul Absolute Eos (auto) (0-0.6) 10^3/ul Absolute Basos (auto) (0-0.2) 10^3/ul Absolute Nucleated RBC 10^3/ul Nucleated RBC % Patient Temperature Not Reportable ABG pH 7.15 L* (7.35-7.45) ABG pH (Temp Correct) Pending ABG pCO2 63 H (35-45) mmHg ABG pCO2 (Temp Corrct Pending ABG pO2 103 H (80-100) mmHg ABG pO2 (Temp Correct Pending ABG HCO3 18.8 L (19-31) mmol/L ABG O2 Saturation 98.3 H (94.0-98.0) % ABG Base Excess -7.8 L (-2.0-2.0) mmol/L VBG pH 7.17 L (7.32-7.43) VBG pCO2 65 H (41-51) mmHg VBG pO2 89.0 H (35-45) mmHg VBG HCO3 20.2 L (24-28) mmol/L VBG O2 Saturation 97.1 H (70-80) % VBG Base Excess -5.9 L (0.0-4.0) mmol/L Respiration Rate Not Reportable O2 Delivery Device bipap Ventilator Type Not Reportable Vent Mode Not Reportable FiO2 50 Inspiratory Time Not Reportable PEEP Not Reportable Pressure Support Not Reportable Pressure Control Not Reportable EPAP 8 IPAP 16 BiPAP s/t Sodium (135-145) mmol/L Potassium (3.5-5.0) mmol/L Chloride (101-111) mmol/L Carbon Dioxide (22-32) mmol/L Anion Gap (2-11) mmol/L BUN (6-24) mg/dL Creatinine (0.67-1.17) mg/dL Est GFR ( Amer) (>60) Est GFR (Non-Af Amer) (>60) BUN/Creatinine Ratio (8-20) Glucose (70-100) mg/dL Lactic Acid (0.5-2.0) mmol/L Calcium (8.6-10.3) mg/dL Total Bilirubin (0.2-1.0) mg/dL AST (13-39) U/L ALT (7-52) U/L Alkaline Phosphatase (34-104) U/L CK-MB (CK-2) (0.6-6.3) ng/mL Troponin I (<0.04) ng/mL C-Reactive Protein (<8.01) mg/L B-Natriuretic Peptide 370 H (<=100) pg/mL Total Protein (6.4-8.9) g/dL Albumin (3.2-5.2) g/dL Globulin (2-4) g/dL Albumin/Globulin Ratio (1-3) Microbiology and Other Data: Microbiology 11/03/18 21:00 Aerobic Blood Culture - Preliminary Blood Venous No Growth Day 1 Anaerobic Blood Culture - Preliminary No Growth Day 1 11/03/18 21:00 Aerobic Blood Culture - Preliminary Blood Venous No Growth Day 1 Anaerobic Blood Culture - Preliminary No Growth Day 1 11/03/18 12:44 Urine Culture - Final Urine No Growth (<1,000 CFU/mL) 11/03/18 21:40 Nasal Screen MRSA (PCR) - Final Nasal Mrsa Not Detected 11/03/18 12:44 Influenza Types A,B Antigen - Final Nasopharyngeal Specimen received for Influenza A/B Molecular testing Assess/Plan/Problems-Billing Assessment: 57 yo M with PMH 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 Remains diuresing as able. - Patient Problems (1) Acute and chronic respiratory failure with hypoxia Current Visit: Yes Status: Acute Priority: High Code(s): J96.21 - ACUTE AND CHRONIC RESPIRATORY FAILURE WITH HYPOXIA SNOMED Code(s): 46531144 Comment: -COPD exacerbation on admission and continued difficulty with SOB exacerbating flutter -BiPAP QHS (already on home CPAP and was transitioning) -s/pCeftriaxone ,Azithromycin nebs and solumedrol Day 03/27 on 11/09 - DC today -Dec solumedrol to 40 mg iv bid and taper as possible. Today at PO pred 50mg, taper to 40mg tomorrow -DC morphine (2) COPD exacerbation Current Visit: Yes Status: Acute Code(s): J44.1 - CHRONIC OBSTRUCTIVE PULMONARY DISEASE W (ACUTE) EXACERBATION SNOMED Code(s): 453190626 Comment: As above. (3) Atypical chest pain Current Visit: Yes Status: Acute Code(s): R07.89 - OTHER CHEST PAIN SNOMED Code(s): 322539426 Comment: chest pain during A Flutter, will continue rate control efforts -Will add on troponin (flat), will monitor throughout day (4) Pneumonia Current Visit: Yes Status: Acute Priority: High Onset Date: 12/26/14 Code(s): J18.9 - PNEUMONIA, UNSPECIFIED ORGANISM SNOMED Code(s): 984781767 Comment: S/P ceftriaxone and azithromycin. Today is D#03/27. (5) CHF exacerbation Current Visit: Yes Status: Acute Code(s): I50.9 - HEART FAILURE, UNSPECIFIED SNOMED Code(s): 79864458 Comment: HFpEF from prior echos (ef 55-60% IN 07/2018), none done on thius admission, his fluid status is improving as steroid tapering -Diuresing well on 40mg IV BID of lasix, monitor K continue until closer to dry weight (6) Atrial fibrillation with RVR Current Visit: Yes Status: Acute Code(s): I48.91 - UNSPECIFIED ATRIAL FIBRILLATION SNOMED Code(s): 140814972133226 Comment: - Decompensated in last 24 hyours - Continue metoprolol and xarelto, was on Dilt gtt 5mg/hr since 6PM 11/09, d/c in favor of cards recommendations -Failed amiodarone in the past, failed Tikosyn -Contact cardiology to discuss other antiarrythmics. (7) Daily consumption of alcohol Current Visit: No Status: Acute Priority: High Onset Date: 12/26/14 Code (s): QJW1017 - SNOMED Code(s): 523610388 Comment: -No e/o withdrawal here, sig anxiety and on PRN ativan (8) Constipation Current Visit: Yes Status: Acute Code(s): K59.00 - CONSTIPATION, UNSPECIFIED SNOMED Code(s): 40022559 Comment: Likely 2/2 to opiates, d/c oral morphine, and today IV morphine, no clear indication,c an take low dose Tramadol for severe pain - Start Senna 11/08 (9) DVT prophylaxis Current Visit: No Status: Acute Priority: Low Onset Date: 12/26/14 Code( s): KTR8513 - SNOMED Code(s): 638491268 Comment: - Xarelto Status and Disposition: Inpatient
[2018-11-10] MEDS ORDERED: Diltiazem TAB* 60 MG PO SCH (08:00)
[2018-11-10] MEDS ORDERED: Magnesium Oxide TAB* 400 MG PO ONE (08:05)
[2018-11-10] MEDS ORDERED: Magnesium Sulfate 2 GM IV* 2 GM/50 ML BAG IVPB ONE (09:12)
[2018-11-10] MEDS: Potassium Chlor TAB* 10 MEQ TAB.ER PO SCH ×2 (09:13→21:11)
[2018-11-10] MEDS: Furosemide IV* 10 MG/ML VIAL (40 MG) IV SCH ×2 (09:13→17:14)
[2018-11-10] MEDS: predniSONE TAB* 50 MG PO SCH (09:14)
[2018-11-10] MEDS: Magnesium Oxide TAB* 400 MG PO SCH ×2 (09:14→21:11)
[2018-11-10] MEDS: Senna TAB PO SCH (09:14)
[2018-11-10] MEDS: Rivaroxaban TAB(*) 20 MG TAB PO SCH (09:14)
[2018-11-10] MEDS: Metoprolol Tartrate TAB* 100 MG TAB PO SCH (09:14)
[2018-11-10] MEDS: Pantoprazole TAB * 40 MG TAB PO SCH (09:15)
[2018-11-10] MEDS: LORazepam TAB(*) 0.5 MG PO PRN ×2 (09:37→17:36)
[2018-11-10] MEDS ORDERED: Diltiazem CD CAP* 120 MG PO ONE (12:00)
[2018-11-10] MEDS: Sotalol TAB* 80 MG PO SCH ×2 (12:27→21:13)
--- NOTE | 2018-11-10 12:39 | CONS ---
CONSULTATION REPORT: DATE OF CONSULT: 11/10/18 ATTENDING PHYSICIAN: Rola Esparza NP dictating for Dr. Annmarie Chavez of Cardiology. REASON FOR CONSULTATION: AFib, RVR. PRIMARY HOT MILL WORKER: Dr. Kennedy. PRIMARY MINE EXPERT: Dr. Dutta. PRIMARY PHYSICIAN: Dr. Heredia. CHIEF COMPLAINT: Shortness of breath. HISTORY OF PRESENT ILLNESS: This is a pleasant 57-year-old male patient who follows Dr. Kennedy for his cardiac care in addition to Dr. Dutta. The patient states he had been in his usual state of health upon presentation to [facility] November 03, 2018. Apparently the night prior on November 02, 2018, he started to experience shortness of breath. Apparently, he was out shopping when breathing acutely became worse, thus 911 was called and he was transferred to [facility] Emergency Department to be evaluated. While being evaluated in the emergency department, oxygenation was 89% on 6 L nasal cannula. The patient had a trial of Vapotherm therapy and ultimately was placed on BiPAP therapy. Throughout this admission, he has been treated for COPD exacerbation with IV ceftriaxone, azithromycin, and Solu- Medrol therapy. After review of progress notes since admission, it appears that patient has been having intermittent atypical chest pain correlating with paroxysmal AFib flutter with RVR. He has had 2 negative troponin values. Yesterday evening, he was given IV Cardizem 10 mg bolus x2. He eventually converted to normal sinus rhythm. Around 8:37 this morning, he developed paroxysmal AFib with RVR, rate is 147. In fact upon entering his room, he was in AFib with RVR. His only complaint was sensation of chest tightness, which he states is historically his symptomatology correlating with AFib. He denies a sensation of his heart racing irregularity. He states that his breathing is not quite at baseline, although he reports sputum production. He denies dizziness or syncope. Does report increased pedal edema, which he states has been responding to the IV Lasix that was initiated on 11/09/18. Otherwise, he offers no complaints. He states that he is anxious to be discharged home by Thursday because he has a planned surgery on 11/16/18 at [facility] due to ulcerative colitis. The patient states that he had his second AFib ablation on August 31, 2018. He adds that amiodarone was stopped immediately after ablation due to toxicity with difficulty ambulating. Historically, he failed Tikosyn therapy due to ventricular tachycardia. He reports compliance of Xarelto therapy. He states that Dr. Franco has referred him for a lung transplant evaluation; however, he was declined by [facility] due to his insurance. Apparently after he was discharged from the hospital in August, Dr. Franco had ordered BiPAP therapy; however, he has not picked up medical equipment prior to presenting to the emergency department on 11/03/18. Denies fever or chills. Of note, after speaking to his pharmacy, it appears that Dr. Kennedy on 10/04/18 had increased home Cartia from 120 mg a day to 240 mg a day. It appears that his admission med rec is inaccurate. I have updated his home medication list and gave a personal copy to his RN today, Cherise who used to update his home med rec. PAST MEDICAL HISTORY: Includes: 1. COPD. 2. Sick sinus syndrome with DC PPM in situ. 3. Paroxysmal AFib. 4. Paroxysmal Aflutter. 5. Ulcerative colitis. 6. Hep C. 7. Obstructive sleep apnea. 8. Tachycardia-induced cardiomyopathy with normalization of EF. 9. Hypertension. PAST SURGICAL HISTORY: Includes: 1. DC PPM with Dr. Chavez 10/30/17. 2. Pulmonary vein isolation AF ablation December of 2017. 3. Redo AFib ablation 08/31/18. 4. Knee arthroscopy. 5. Colectomy. 6. Ileostomy. MEDICATIONS: According to [facility] whom I personally spoke with, the patient is on: 1. Xarelto 20 mg p.o. daily. 2. Torsemide 10 to 20 mg p.o. daily p.r.n. 3. Metoprolol 100 mg p.o. b.i.d. 4. Cartia extended release 240 mg a day. 5. Cardizem 30 mg p.o. p.r.n. for heart rate greater than 120. 6. K-Dur 10 mEq daily. 7. Mag oxide 400 mg p.o. b.i.d. 8. Ellipta 1 inhalation a day. 9. Protonix 40 mg a day. 10. Levalbuterol 1 to 2 puffs p.o. q.6h. p.r.n. 11. Tylenol as needed. 12. Budesonide/formoterol 80/4.5 two inhalations b.i.d. 13. Gabapentin as needed. ALLERGIES: Include: 1. CIPRO, unknown reaction, reported toxicity with amiodarone. 2. TIKOSYN due to VT. FAMILY HISTORY: Mother due to complications of motor vehicle accident. Father in [place] War. Otherwise, denies history of premature coronary artery disease in first relatives. SOCIAL HISTORY: The patient is a former tobacco user, smoked one-half packs per day for 40+ years, quit 2 years ago. He consumes 2 to 3 alcohol beverages involving hard liquor tequila or rum a week. He is disabled and lives at home alone. Denies illegal drug use. REVIEW OF SYSTEMS: All systems have been reviewed and otherwise negative except as above mentioned in the HPI. PHYSICAL EXAM: Vital Signs: Temperature is 97.9, pulse is 82, oxygenation 95% , blood pressure 113/74. General: The patient is sitting upon edge of bed, eating breakfast upon entering room, appears in no apparent distress, cooperative with exam, appears well nourished. HEENT: Head is atraumatic, normocephalic. Oral mucosa is moist. Tongue is midline. Neck: Supple. Trachea midline. No JVD. No carotid bruit. Cardiac: Normal S1, S2. Irregular rate and rhythm. No murmur, gallop or rub auscultated. Lungs: Auscultated posteriorly, diminished throughout with inspiratory wheezing noted in bilateral bases. No evidence of retractions. /GI: Abdomen is protuberant. Ileostomy in place with brown stool noted in bag. Normoactive bowel sounds. Nontender to palpation. Extremities: 1+ pretibial edema noted bilaterally, otherwise no clubbing. Skin: Intact. No evidence of jaundice, rashes, or ecchymosis appreciated. Psych: Appropriate affect. A and O x3. DIAGNOSTIC STUDIES/LAB DATA: Blood work: 11/10/18; sodium 138, potassium 3.7, chloride 98, carbon dioxide 33, BUN 31, creatinine 0.97, glucose 90, magnesium 1.9. Troponin was negative on 11/09/18 and also on 11/03/18. CBC: White count 22, hemoglobin 12.3, hematocrit 37, platelets 195. Influenzae A and B were negative. EKG from 11/10/18 demonstrates normal sinus rhythm, rate 80 with known diffuse nonspecific ST segment depression. Echocardiogram from 09/15/19; LVEF 55% to 60%, mild LVH, left atrial was normal in size, mild MR, trace to mild TR. Telemetry reviewed. The patient is currently in normal sinus rhythm, rate 87 with periods of paroxysmal AFib, it is 140s to 150s. ASSESSMENT AND PLAN: 1. Long-standing history of paroxysmal atrial fibrillation, atrial flutter, follows Dr. Kennedy and Dr. Dutta with [facility]; the patient is status post redo atrial fibrillation ablation 08/31/18 on Xarelto 20 mg a day, metoprolol 100 mg p.o. b.i.d., and Cartia 240 mg a day prior to presentation on 11/03/18. He is currently being treated for chronic obstructive pulmonary disease exacerbation, thus the patient has had breakthrough atrial fibrillation , atrial flutter. He actually converted to normal sinus rhythm within 10 minutes while I was in the room. Symptom burden includes chest tightness when he is experiencing atrial fibrillation or atrial flutter. CHADS-VASc is technically 1; however, he does have a history of tachycardia-induced cardiomyopathy with normalization EF and given burden of atrial fibrillation/ atrial flutter, would continue Xarelto therapy. In the past, he has failed amiodarone due to toxicity and Tikosyn due to ventricular tachycardia. One option is to do a trial of sotalol therapy; however, it is unclear if this has been tried by primary insurance verification rep, Dr. Dutta, thus we will contact Dr. Kennedy to clarify as to whether or not the patient had been given sotalol in the past. At this current time, I would discontinue Lopressor 100 mg p.o. b.i.d. and initiate prior home dose of metoprolol 100 mg p.o. b.i.d., discontinue Cardizem 60 mg p.o. t.i.d., and initiate prior home dose of Cartia extended release 240 mg a day. The patient states that he has been offered AV aurelio ablation in the past given complexity of rate control for atrial fibrillation and atrial flutter. This certainly could be an option but needs to be evaluated on an outpatient basis with his primary insurance verification rep. We will replete potassium and magnesium and continue to follow. 2. Chronic obstructive pulmonary disease exacerbation; currently being managed by hospitalist team. The patient has been given IV ceftriaxone, azithromycin, and steroid therapy. He informed me that Dr. Franco has referred him for lung transplant. Apparently, his insurance company would not cover a [facility]; however, he was given a list of other transplant programs to follow up with. He states that after his admission in August, BiPAP therapy was prescribed; however, he has not had a chance to pick it up from his medical equipment store. 3. History of hypertension. Blood pressure is currently stable. Please refer to above number one in regards to medication changes. 4. History of sick sinus syndrome with DC PPM in situ. Blood cultures were negative this admission. 5. History of tachycardia-induced cardiomyopathy with normalization of EF based on 09/15/18 echocardiogram. During this admission, the patient developed 2+ pretibial edema. He states that this typically occurs in the setting of increased steroid therapy. He is responding to IV Lasix 40 mg b.i.d. We would recommend continuing gentle IV diuresis as needed. He appears to be manifesting right-sided heart failure at this time. Currently, he is in normal sinus rhythm with breakthrough atrial fibrillation. 6. Disposition. Pending course. The patient is full code. I personally discussed plan of care with Dr. Annmarie Chavez, who agrees the above assessment and plan. We will continue to follow. Thank you for this kind consultation. Any future questions or concerns, please do not hesitate to contact our service. ROLA ESPARZA NP [id number]/CPS #: [id number] ELIUD
[2018-11-10 12:44] LABS: BUN/Creatinine Ratio 26.5 (8-20); Calcium 9.6 mg/dL (8.6-10.3); EGFR African American 77.7 (>60); EGFR Non-African American 64.3 (>60)
[2018-11-10] MEDS ORDERED: Metoprolol Succinate XL TAB* 100 MG PO SCH (21:00)
[2018-11-10] MEDS: traMADol TAB* 50 MG PO PRN (21:12)
[2018-11-10] MEDS: Metoprolol Succinate XL TAB* 50 MG PO SCH (21:13)
[2018-11-10] MEDS: Gabapentin CAP(*) 100 MG PO SCH (21:14)
[2018-11-11] MEDS: Nitroglycerin TAB 0.4 MG* 0.4 MG TAB SL PRN ×3 (00:05→19:34)
[2018-11-11] MEDS: Albuterol/Ipratropium NEB.SOL* Albuterol 2.5 MG/Ipratropium 0.5 MG 3 ML INH PRN ×3 (01:09→21:38)
[2018-11-11] MEDS: Potassium Chlor TAB* 10 MEQ TAB.ER PO SCH ×2 (09:01→21:26)
[2018-11-11] MEDS: Senna TAB PO SCH (09:01)
[2018-11-11] MEDS: Metoprolol Succinate XL TAB* 50 MG PO SCH ×2 (09:01→21:25)
[2018-11-11] MEDS: Diltiazem CD CAP* 240 MG PO SCH (09:01)
[2018-11-11] MEDS: Potassium Chlor TAB* 20 MEQ TAB.ER PO SCH (09:03)
[2018-11-11] MEDS: Magnesium Oxide TAB* 400 MG PO SCH ×2 (09:03→21:25)
[2018-11-11] MEDS: predniSONE TAB* 20 MG PO SCH (09:03)
[2018-11-11] MEDS: Rivaroxaban TAB(*) 20 MG TAB PO SCH (09:03)
[2018-11-11] MEDS: Sotalol TAB* 80 MG PO SCH ×2 (09:04→21:26)
[2018-11-11] MEDS: Furosemide IV* 10 MG/ML VIAL (40 MG) IV SCH (09:04)
[2018-11-11] MEDS: Pantoprazole TAB * 40 MG TAB PO SCH (09:04)
--- NOTE | 2018-11-11 09:24 | PN ---
<RubylakshmiRola - Last Filed: 11/11/18 09:19> Subjective Date of Service: 11/11/18 - f/u PAF with RVR. COPD exacerbation Interval History: No events last night. Patient denies palpitations, sensation of heart racing, adds edema is slowly improving. He states he is still SOB. no c/o chest pain. No events last night per nursing staff ( Micky POE) whom I personally spoke with Medications Active Medications: Acetaminophen (Tylenol Tab*) 650 mg PO Q6H PRN PRN Reason: FEVER/PAIN Albuterol/Ipratropium (Duoneb (Albuterol 2.5 Mg/Ipratropium 0.5 Mg)) 1 neb INH Q4H PRN PRN Reason: SOB/WHEEZING Last Admin: 11/11/18 01:09 Dose: 1 neb Diltiazem HCl (Cardizem Cd Cap*) 240 mg PO DAILY [facility] Last Admin: 11/11/18 09:01 Dose: 240 mg Gabapentin (Neurontin Cap(*)) 100 mg PO BEDTIME [facility] Last Admin: 11/10/18 21:14 Dose: 100 mg Hydralazine HCl (Apresoline Iv*) 5 mg IV SLOW PU Q6H PRN PRN Reason: SYSTOLIC BP GREATER THAN: Lorazepam (Ativan Tab(*)) 0.5 mg PO Q6H PRN PRN Reason: ANXIETY Last Admin: 11/10/18 17:36 Dose: 0.5 mg Magnesium Oxide (Magox 400 Tab*) 400 mg PO BID [facility] Last Admin: 11/11/18 09:03 Dose: 400 mg Metoprolol Succinate (Toprol Xl Tab*) 50 mg PO BID [facility] Last Admin: 11/11/18 09:01 Dose: 50 mg Nitroglycerin (Nitroglycerin Tab 0.4 Mg*) 0.4 mg SL Q5M PRN PRN Reason: ANGINA Last Admin: 11/11/18 00:05 Dose: 0.4 mg Pantoprazole Sodium (Protonix Tab*) 40 mg PO DAILY [facility] Last Admin: 11/11/18 09:04 Dose: 40 mg Potassium Chloride (Klor Con Er Tab*) 20 meq PO BID [facility] Last Admin: 11/11/18 09:01 Dose: 20 meq Potassium Chloride (Klor Con Er Tab*) 40 meq PO DAILY [facility] Last Admin: 11/11/18 09:03 Dose: 40 meq Prednisone (Deltasone Tab*) 40 mg PO DAILY [facility] Last Admin: 11/11/18 09:03 Dose: 40 mg Rivaroxaban (Xarelto(*)) 20 mg PO DAILY [facility] Last Admin: 11/11/18 09:03 Dose: 20 mg Senna (Senokot Tab*) 1 tab PO DAILY [facility] Last Admin: 11/11/18 09:01 Dose: 1 tab Sotalol HCl (Betapace Tab*) 80 mg PO BID [facility] Last Admin: 11/11/18 09:04 Dose: 80 mg Torsemide (Demadex*) 10 mg PO DAILY [facility] Tramadol HCl (Ultram*) 50 mg PO Q12H PRN PRN Reason: PAIN Last Admin: 11/10/18 21:12 Dose: 50 mg Objective Vital Signs: Temp Pulse Resp BP Pulse Ox 97.2 F 69 16 149/76 97 11/11/18 03:53 11/11/18 03:53 11/11/18 03:53 11/11/18 03:53 11/11/18 03:53 Oxygen Devices in Use Now: None Appearance: sleeping in bed upon entering room. NAD, A+O x3 Eyes: No Scleral Icterus, PERRLA Ears/Nose/Mouth/Throat: NL Teeth, Lips, Gums, Mucous Membranes Moist Neck: NL Appearance and Movements; NL JVP, Trachea Midline, No Thyroid Enlargement, Masses, - Respiratory: Symmetrical Chest Expansion and Respiratory Effort, - - Diminished throughout. + inspiratory wheezes noted in bases. Cardiovascular: NL Sounds; No Murmurs; No JVD, - - 1+ pretibial edema Abdominal: NL Sounds; No Tenderness; No Distention Skin: No Rash or Ulcers Neurological: Alert and Oriented x 3 Lines/Tubes/Other Access: Clean, Dry and Intact Peripheral IV Laboratory Results: 11/10/18 05:50 11/10/18 12:11 Total Bilirubin 0.30 mg/dL (0.2-1.0) 11/04/18 09:38 Direct Bilirubin 0.10 mg/dL (0.03-0.18) 11/04/18 09:38 Indirect Bilirubin 0.2 mg/dL (0.3-1.0) L 11/04/18 09:38 AST 37 U/L (13-39) 11/04/18 09:38 ALT 46 U/L (7-52) 11/04/18 09:38 Alkaline Phosphatase 80 U/L (34-104) 11/04/18 09:38 CK-MB (CK-2) 4.3 ng/mL (0.6-6.3) 11/03/18 10:58 B-Natriuretic Peptide 370 pg/mL (<=100) H 11/03/18 10:58 Total Protein 6.1 g/dL (6.4-8.9) L 11/04/18 09:38 Albumin 3.8 g/dL (3.2-5.2) 11/04/18 09:38 Globulin 2.3 g/dL (2-4) 11/04/18 09:38 Albumin/Globulin Ratio 1.7 (1-3) 11/04/18 09:38 11/03/18 11/09/18 10:58 06:07 Troponin I 0.01 0.02 Laboratory Results - last 24 hr 11/10/18 12:11 Sodium 137 Potassium 4.0 Chloride 96 L Carbon Dioxide 34 H Anion Gap 7 BUN 31 H Creatinine 1.17 Est GFR ( Amer) 77.7 Est GFR (Non-Af Amer) 64.3 BUN/Creatinine Ratio 26.5 H Glucose 122 H Calcium 9.6 EKG Data: todays EKG is pending. Reviewed Telemetry NSR rate 70-80, no VPC or VT. No AF since . occasional PACs Assessment/Plan #1 COPD exacerbation; Hospitalist managing. Patient reports he is still SOB although it is improving. defer to primary team. follows Dr. Franco outpatient. #2 H/O PAF; Currently in NSR on Sotalol 80mg Po BID( initiated 11/10/2018 at 1000 ). await ekg to evaluate QTc which is to be done later this morning. Patient is on medications that can prolong QT interval thus recommend K+>4, Mag> 2. Avoid other medications that can prolong QTc. Continue toprol 50/day and Xarelto 20mg Po daily with meal. Will need close f/u with primary wood carving lathe operator Dr. Ren given new antiarrhythmic medication. Will follow. #3 h/o Tachycardia induced cardiomyopathy with normalization of LVEF. Last echo 09/15/2018 LVEF 55-60%. He has 1+ pre tibial edema and reports 10 lb weight gain above baseline weight which per patient is 156. He adds that whenever he receives steroid therapy he develops lower extremity edema. Will update echo. Continue gentle IV diureses with close monitoring of renal and electrolytes. #4 h/o UC with ileostomy; he is on chronic K+ and Mag supplements at home. will monitor electrlytes closely given AAT for above #2. #5 Disposition pending course will follow. Attending: Kush Dickens <Kush Dickens - Last Filed: 11/11/18 10:02> Medications Active Medications: Acetaminophen (Tylenol Tab*) 650 mg PO Q6H PRN PRN Reason: FEVER/PAIN Albuterol/Ipratropium (Duoneb (Albuterol 2.5 Mg/Ipratropium 0.5 Mg)) 1 neb INH Q4H PRN PRN Reason: SOB/WHEEZING Last Admin: 11/11/18 01:09 Dose: 1 neb Diltiazem HCl (Cardizem Cd Cap*) 240 mg PO DAILY [facility] Last Admin: 11/11/18 09:01 Dose: 240 mg Furosemide (Lasix Iv*) 40 mg IV SLOW PU 0800,1700 [facility] Gabapentin (Neurontin Cap(*)) 100 mg PO BEDTIME [facility] Last Admin: 11/10/18 21:14 Dose: 100 mg Hydralazine HCl (Apresoline Iv*) 5 mg IV SLOW PU Q6H PRN PRN Reason: SYSTOLIC BP GREATER THAN: Lorazepam (Ativan Tab(*)) 0.5 mg PO Q6H PRN PRN Reason: ANXIETY Last Admin: 11/10/18 17:36 Dose: 0.5 mg Magnesium Oxide (Magox 400 Tab*) 400 mg PO BID [facility] Last Admin: 11/11/18 09:03 Dose: 400 mg Metoprolol Succinate (Toprol Xl Tab*) 50 mg PO BID [facility] Last Admin: 11/11/18 09:01 Dose: 50 mg Nitroglycerin (Nitroglycerin Tab 0.4 Mg*) 0.4 mg SL Q5M PRN PRN Reason: ANGINA Last Admin: 11/11/18 00:05 Dose: 0.4 mg Pantoprazole Sodium (Protonix Tab*) 40 mg PO DAILY [facility] Last Admin: 11/11/18 09:04 Dose: 40 mg Potassium Chloride (Klor Con Er Tab*) 20 meq PO BID [facility] Last Admin: 11/11/18 09:01 Dose: 20 meq Potassium Chloride (Klor Con Er Tab*) 40 meq PO DAILY [facility] Last Admin: 11/11/18 09:03 Dose: 40 meq Prednisone (Deltasone Tab*) 40 mg PO DAILY [facility] Last Admin: 11/11/18 09:03 Dose: 40 mg Rivaroxaban (Xarelto(*)) 20 mg PO DAILY [facility] Last Admin: 11/11/18 09:03 Dose: 20 mg Senna (Senokot Tab*) 1 tab PO DAILY [facility] Last Admin: 11/11/18 09:01 Dose: 1 tab Sotalol HCl (Betapace Tab*) 80 mg PO BID [facility] Last Admin: 11/11/18 09:04 Dose: 80 mg Torsemide (Demadex*) 20 mg PO DAILY [facility] Tramadol HCl (Ultram*) 50 mg PO Q12H PRN PRN Reason: PAIN Last Admin: 11/10/18 21:12 Dose: 50 mg Objective Vital Signs: Temp Pulse Resp BP Pulse Ox 97.2 F 69 16 149/76 97 11/11/18 03:53 11/11/18 03:53 11/11/18 03:53 11/11/18 03:53 11/11/18 03:53 Laboratory Results: 11/10/18 05:50 11/10/18 12:11 Total Bilirubin 0.30 mg/dL (0.2-1.0) 11/04/18 09:38 Direct Bilirubin 0.10 mg/dL (0.03-0.18) 11/04/18 09:38 Indirect Bilirubin 0.2 mg/dL (0.3-1.0) L 11/04/18 09:38 AST 37 U/L (13-39) 11/04/18 09:38 ALT 46 U/L (7-52) 11/04/18 09:38 Alkaline Phosphatase 80 U/L (34-104) 11/04/18 09:38 CK-MB (CK-2) 4.3 ng/mL (0.6-6.3) 11/03/18 10:58 B-Natriuretic Peptide 370 pg/mL (<=100) H 11/03/18 10:58 Total Protein 6.1 g/dL (6.4-8.9) L 11/04/18 09:38 Albumin 3.8 g/dL (3.2-5.2) 11/04/18 09:38 Globulin 2.3 g/dL (2-4) 11/04/18 09:38 Albumin/Globulin Ratio 1.7 (1-3) 11/04/18 09:38 11/03/18 11/09/18 10:58 06:07 Troponin I 0.01 0.02 Assessment/Plan Chart reviewed, patient examined, and discussed with Ms. Esparza and DR. Chavez. See handwritten note in chart. Repeat labs, weight, echo, and ekg pending at this time. Will adjust diuretics and meds as needed to avoid prerenal azotemia and volume depletion. Patient improving but risk of respiratory distress and recurrent afib still present. This may complicate plans for his upcoming GI surgery which most likely require interruption of his sotalol therapy and increase the risk of afib rvr perioperatively. Await results of above. Advised patient to rediscuss timing of surgery with surgeon, Dr. Kennedy, and EP in light of recent pneumonia and potential for recurrent afib perioperatively . more than 50% of the 35+ minutes spent face to face and coordinating care. ic
[2018-11-11 11:21] LABS: BUN/Creatinine Ratio 26.2 (8-20); Blood Urea Nitrogen 27 mg/dL (6-24); CO2 Carbon Dioxide 34 mmol/L (22-32); Calcium 9.6 mg/dL (8.6-10.3); Chloride 96 mmol/L (101-111); EGFR African American 90.1 (>60); EGFR Non-African American 74.4 (>60); Glucose 134 mg/dL (70-100); Magnesium 1.9 mg/dL (1.9-2.7); Sodium 136 mmol/L (135-145)
[2018-11-11 12:41] LABS: Anion Gap 6 mmol/L (2-11)
[2018-11-11] MEDS ORDERED: Magnesium Sulfate 2 GM IV* 2 GM/50 ML BAG IVPB ONE (14:17)
[2018-11-11] MEDS: LORazepam TAB(*) 0.5 MG PO PRN ×2 (15:24→21:26)
--- NOTE | 2018-11-11 16:13 | ECHO ---
Patient: REMA MARVIN [facility] Rec#: [id number] : 1960 Date: 11/11/2018 Age: 57y Height: 167.6 cm / 66.0 in Weight: 75.3 kg / 166.0 lbs Sex: M BSA: 1.9 Room#: [facility] Admit Date#: 11/03/2018 Type: Inpatient Referring: Kush Dickens MD Reading: Dayne Flores DO Senior Control Systems Engineer: Kellen Garcia RN RDCS CC: Allyn Heredia MD Transthoracic Echocardiogram Indication: CHF, cardiomyopathy BP: 149/76 HR: 82 Rhythm: NSR with PACs Findings History: Paroxysmal A.fib/flutter, pacemaker, tachycardia-induced cardiomyopathy, HTN, COPD, YAMEL, former smoker Technical Comments: The study is technically limited due to the patient's history of COPD. The study is technically limited due to the patient's smoking history. The patient was sitting upright during the exam to facilitate breathing. Completed at 1140. Left Ventricle: The left ventricular chamber size is normal. Mild concentric left ventricular hypertrophy is observed. Global left ventricular wall motion and contractility are within normal limits. There is normal left ventricular systolic function. The estimated ejection fraction is 55-60%. The assessment of diastolic function is non-diagnostic. The patient was unable to perform a Valsalva maneuver. Left Atrium: The left atrial chamber size is normal. Right Ventricle: The right ventricular chamber size and systolic function are within normal limits. A pacemaker wire is visualized in the right ventricle. Right Atrium: The right atrial cavity size is normal. A pacemaker wire is visualized in the right atrium. Aortic Valve: The aortic valve structure is not well visualized. There is no evidence of aortic regurgitation. There is no evidence of aortic stenosis. Mitral Valve: The mitral valve leaflets are mildly thickened. Mild subvalvular thickening of the mitral valve is visualized. There is a trace of mitral regurgitation. There is no evidence of mitral stenosis. Tricuspid Valve: The tricuspid valve leaflets are normal. There is trace tricuspid regurgitation. Unable to estimate the right ventricular systolic pressure. Pulmonic Valve: The pulmonic valve structure is not well visualized. Pericardium: There is no significant pericardial effusion. Aorta: The ascending aorta is not well visualized. The aortic arch is not well visualized. There is no dilation of the aortic root. Pulmonary Artery: The main pulmonary artery is not well visualized. Venous: The inferior vena cava appears normal in size. There is a greater than 50% respiratory change in the inferior vena cava dimension. Conclusions The left ventricular chamber size is normal. Mild concentric left ventricular hypertrophy is observed. Global left ventricular wall motion and contractility are within normal limits. There is normal left ventricular systolic function. The estimated ejection fraction is 55-60%. The left atrial chamber size is normal. The right ventricular chamber size and systolic function are within normal limits. A pacemaker wire is visualized in the right ventricle. No significant valvular abnormalities noted Unable to estimate the right ventricular systolic pressure. Compared to prior study from 08/2018, no significant changes noted Measurements Name Value Normal Range RVDdMajor (2D) 2.4 cm (2.2 - 4.4) RVAW (2D) 0.9 cm (0.2 - 0.5) RAd ISD 4CH 3.6 cm (3.4 - 4.9) RA (A4C)W 2.9 cm (2.9 - 4.6) IVSd (2D) 1.1 cm (0.6 - 1) LVPWd (2D) 1.1 cm (0.6 - 1) LVIDd (2D) 3.6 cm (3.6 - 5.4) LVIDs (2D) 2.4 cm - LV FS (2D) 33 % (25 - 45) Aortic Annulus 1.8 cm (1.4 - 2.6) Ao root diameter (2D) 2.6 cm (2.1 - 3.5) LA dimension (AP) 2D 2.8 cm (2.3 - 3.8) LAd ISD 4CH 3.3 cm (2.9 - 5.3) LA ISD 4CH W 3.2 cm (2.5 - 4.5) Name Value Normal Range LA ESV SP 4CH (A/L) 18 ml - LA ESV SP 2CH (A/L) 31 ml - LA ESV BP (A/L) 25 ml - LA ESV BP (A/L) index 13.6 ml/m2 - LA ESV SP 4CH (MOD) 17 ml - LA ESV SP 2CH (MOD) 28 ml - Name Value Normal Range MV E-wave Vmax 0.91 m/sec - MV deceleration time 205 msec - MV A-wave Vmax 0.53 m/sec - MV E:A ratio 1.7 ratio - LV septal e' Vmax 0.09 m/sec - LV lateral e' Vmax 0.13 m/sec - LV E:e' septal ratio 10.1 ratio - LV E:e' lateral ratio 7 ratio - Name Value Normal Range AV Vmax 1 m/sec - AV VTI 17.1 cm - AV peak gradient 4 mmHg - AV mean gradient 2 mmHg - LVOT Vmax 0.75 m/sec - LVOT VTI 13.5 cm - LVOT peak gradient 2 mmHg - LVOT mean gradient 1 mmHg - Name Value Normal Range IVC diameter 1.9 cm -
[2018-11-11] MEDS ORDERED: Furosemide IV* 10 MG/ML VIAL (40 MG) IV SLOW PU SCH (17:00)
--- NOTE | 2018-11-11 17:12 | PN ---
Subjective Date of Service: 11/11/18 Interval History: Per nursing patient has been sinus rhythm on tele. Patient has not no complaints to nursing. Patient has been observed ambulating in the hallway today with supplemental O2. Seen resting in bed. Reports "tightness" in regards to breathing "comes and goes ". Currently not experiencing tightness or shortness of breath. Denies chest pain, palpitations, headache, dizziness, n/v/d. Reports he feels he is improving Objective Active Medications: Acetaminophen (Tylenol Tab*) 650 mg PO Q6H PRN PRN Reason: FEVER/PAIN Albuterol/Ipratropium (Duoneb (Albuterol 2.5 Mg/Ipratropium 0.5 Mg)) 1 neb INH Q4H PRN PRN Reason: SOB/WHEEZING Last Admin: 11/11/18 15:26 Dose: 1 neb Diltiazem HCl (Cardizem Cd Cap*) 240 mg PO DAILY [facility] Last Admin: 11/11/18 09:01 Dose: 240 mg Gabapentin (Neurontin Cap(*)) 100 mg PO BEDTIME [facility] Last Admin: 11/10/18 21:14 Dose: 100 mg Hydralazine HCl (Apresoline Iv*) 5 mg IV SLOW PU Q6H PRN PRN Reason: SYSTOLIC BP GREATER THAN: Lorazepam (Ativan Tab(*)) 0.5 mg PO Q6H PRN PRN Reason: ANXIETY Last Admin: 11/11/18 15:24 Dose: 0.5 mg Magnesium Oxide (Magox 400 Tab*) 400 mg PO BID [facility] Last Admin: 11/11/18 09:03 Dose: 400 mg Metoprolol Succinate (Toprol Xl Tab*) 50 mg PO BID [facility] Last Admin: 11/11/18 09:01 Dose: 50 mg Nitroglycerin (Nitroglycerin Tab 0.4 Mg*) 0.4 mg SL Q5M PRN PRN Reason: ANGINA Last Admin: 11/11/18 13:31 Dose: 0.4 mg Pantoprazole Sodium (Protonix Tab*) 40 mg PO DAILY [facility] Last Admin: 11/11/18 09:04 Dose: 40 mg Potassium Chloride (Klor Con Er Tab*) 20 meq PO BID [facility] Last Admin: 11/11/18 09:01 Dose: 20 meq Potassium Chloride (Klor Con Er Tab*) 40 meq PO DAILY [facility] Last Admin: 11/11/18 09:03 Dose: 40 meq Prednisone (Deltasone Tab*) 40 mg PO DAILY [facility] Last Admin: 11/11/18 09:03 Dose: 40 mg Rivaroxaban (Xarelto(*)) 20 mg PO DAILY [facility] Last Admin: 11/11/18 09:03 Dose: 20 mg Senna (Senokot Tab*) 1 tab PO DAILY [facility] Last Admin: 11/11/18 09:01 Dose: 1 tab Sotalol HCl (Betapace Tab*) 80 mg PO BID [facility] Last Admin: 11/11/18 09:04 Dose: 80 mg Torsemide (Demadex*) 20 mg PO DAILY [facility] Tramadol HCl (Ultram*) 50 mg PO Q12H PRN PRN Reason: PAIN Last Admin: 11/10/18 21:12 Dose: 50 mg Vital Signs - 8 hr 11/11/18 11/11/18 11/11/18 11:11 15:24 15:46 Temperature 97.1 F 97.6 F Pulse Rate 81 75 Respiratory 16 18 16 Rate Blood Pressure 128/79 107/66 (mmHg) O2 Sat by Pulse 100 96 Oximetry Oxygen Devices in Use Now: Nasal Cannula Appearance: Comfortable, NAD Eyes: No Scleral Icterus Ears/Nose/Mouth/Throat: Clear Oropharnyx, Mucous Membranes Moist Neck: NL Appearance and Movements; NL JVP Respiratory: Symmetrical Chest Expansion and Respiratory Effort - Scant wheezing. Moderately decrease airflow Cardiovascular: NL Sounds; No Murmurs; No JVD, RRR, - - Trace to mild edema Abdominal: NL Sounds; No Tenderness; No Distention, - - Ostomy Lymphatic: No Cervical Adenopathy Extremities: No Clubbing, Cyanosis Skin: No Rash or Ulcers Neurological: Alert and Oriented x 3, NL Muscle Strength and Tone Nutrition: Taking PO's Result Diagrams: 11/10/18 05:50 11/11/18 13:56 Additional Lab and Data: Laboratory Results - last 24 hr 11/11/18 11/11/18 10:43 13:56 Sodium 136 Potassium TNP 4.8 Chloride 96 L Carbon Dioxide 34 H Anion Gap 6 BUN 27 H Creatinine 1.03 Est GFR ( Amer) 90.1 Est GFR (Non-Af Amer) 74.4 BUN/Creatinine Ratio 26.2 H Glucose 134 H Calcium 9.6 Magnesium 1.9 Microbiology and Other Data: Microbiology 11/03/18 21:00 Aerobic Blood Culture - Preliminary Blood Venous No Growth Day 1 Anaerobic Blood Culture - Preliminary No Growth Day 1 11/03/18 21:00 Aerobic Blood Culture - Preliminary Blood Venous No Growth Day 1 Anaerobic Blood Culture - Preliminary No Growth Day 1 11/03/18 12:44 Urine Culture - Final Urine No Growth (<1,000 CFU/mL) 11/03/18 21:40 Nasal Screen MRSA (PCR) - Final Nasal Mrsa Not Detected 11/03/18 12:44 Influenza Types A,B Antigen - Final Nasopharyngeal Specimen received for Influenza A/B Molecular testing Assess/Plan/Problems-Billing Assessment: 57 yo M with PMH 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 Remains diuresing as able. - Patient Problems (1) Acute and chronic respiratory failure with hypoxia Comment: - COPD exacerbation on admission and continued difficulty with SOB, but improving - BiPAP QHS (already on home CPAP and was transitioning to bipap) - s/p Ceftriaxone ,Azithromycin nebs and solumedrol Day 03/27 on 11/09 - DC on - Transition from IV to PO steriods. Today received Prednisone 40mg (2) Atrial fibrillation with RVR Comment: - Cardiology following patient. - NSR on Sotalol 80 mg BID which was initiated on 11/10/18 - Cont Toprol and Xarelto. - Avoid QT prolongated medication (3) Atypical chest pain Comment: - Reports chest pain when previously experiencing arrhythmia. - Currently NSR and chest pain free. - Cont to monitor (4) CHF exacerbation Comment: - HFpEF from prior echos (ef 55-60% IN 08/2018) - Today's echo reveals no change since 08/2018 echo - Cardiology is diuresing (5) COPD exacerbation Comment: - As above. (6) Constipation Comment: - Likely 10/23 to opiates - Senna initiated 11/08 - Per nursing documentation, last BM x2 on 11/09/18 (7) Pneumonia Comment: - S/P ceftriaxone and azithromycin. Completed course, therefore, d/c'd on 11/10 (8) Daily consumption of alcohol Comment: -No e/o withdrawal here, sig anxiety and on PRN ativan (9) DVT prophylaxis Comment: - Xarelto Status and Disposition: Inpatient
[2018-11-11] MEDS: Melatonin 3 MG TAB PO PRN (21:25)
[2018-11-11] MEDS: traMADol TAB* 50 MG PO PRN (21:26)
[2018-11-11] MEDS: Gabapentin CAP(*) 100 MG PO SCH (21:27)
[2018-11-12] MEDS: Nitroglycerin TAB 0.4 MG* 0.4 MG TAB SL PRN (05:09)
[2018-11-12 06:03] LABS: Hematocrit 34 % (42-52); Hemoglobin 11.1 g/dl (14.0-18.0); Mean Corpuscular HGB Conc 33 g/dl (31-36); Mean Corpuscular Hemoglobin 33 pg (27-31); Mean Corpuscular Volume 100 fL (80-94); Mean Platelet Volume 7.5 fL (7.4-10.4); Platelet Count 152 10^3/ul (150-450); Red Blood Count 3.37 10^6/ul (4.00-5.40); Red Cell Distribution Width 16 % (10.5-15); White Blood Count 21.3 10^3/ul (3.5-10.8)
[2018-11-12 06:24] LABS: ABS Basophils 0 10^3/ul (0-0.2); ABS Eosinophils 0.1 10^3/ul (0-0.6); ABS Lymphocytes 1.2 10^3/ul (1.0-4.8); ABS Neutrophils 17.9 10^3/ul (1.5-7.7)
[2018-11-12 06:25] LABS: Immature Granulocytes 3 % (0-9); Lymphocytes % 4 %; Metamyelocytes % 3 % (0-2); Monocytes % 9 %; Neutrophil % 84 %
[2018-11-12 06:26] LABS: ABS Neutrophils 18.5 10^3/ul (1.5-7.7); Polychromasia 1+
[2018-11-12] MEDS: Senna TAB PO SCH (08:35)
[2018-11-12] MEDS: Potassium Chlor TAB* 20 MEQ TAB.ER PO SCH (08:35)
[2018-11-12] MEDS: Potassium Chlor TAB* 10 MEQ TAB.ER PO SCH ×2 (08:35→21:38)
[2018-11-12] MEDS: Diltiazem CD CAP* 240 MG PO SCH (08:35)
[2018-11-12] MEDS: Rivaroxaban TAB(*) 20 MG TAB PO SCH (08:35)
[2018-11-12] MEDS: Magnesium Oxide TAB* 400 MG PO SCH ×2 (08:36→21:39)
[2018-11-12] MEDS: Metoprolol Succinate XL TAB* 50 MG PO SCH ×2 (08:36→21:39)
[2018-11-12] MEDS: Sotalol TAB* 80 MG PO SCH ×2 (08:36→21:39)
[2018-11-12] MEDS: Pantoprazole TAB * 40 MG TAB PO SCH (08:36)
[2018-11-12] MEDS: Torsemide TAB* 20 MG PO SCH ×2 (08:36→08:42)
[2018-11-12] MEDS: predniSONE TAB* 20 MG PO SCH (08:36)
[2018-11-12] MEDS ORDERED: Torsemide TAB* 20 MG PO SCH ×2 (09:00→17:00)
--- NOTE | 2018-11-12 11:39 | PN ---
Subjective Date of Service: 11/12/18 - PAF Interval History: No events last night. Patient denies palpitations, sensation of heart racing, adds edema is slowly improving. He states he is still SOB. no c/o chest pain. No events last night. He is anxious to be discharged so he can have upcoming surgery for UC on 11/16/2018 Medications Active Medications: Acetaminophen (Tylenol Tab*) 650 mg PO Q6H PRN PRN Reason: FEVER/PAIN Albuterol/Ipratropium (Duoneb (Albuterol 2.5 Mg/Ipratropium 0.5 Mg)) 1 neb INH Q4H PRN PRN Reason: SOB/WHEEZING Last Admin: 11/11/18 21:38 Dose: 1 neb Diltiazem HCl (Cardizem Cd Cap*) 240 mg PO DAILY [facility] Last Admin: 11/12/18 08:35 Dose: 240 mg Gabapentin (Neurontin Cap(*)) 100 mg PO BEDTIME [facility] Last Admin: 11/11/18 21:27 Dose: 100 mg Hydralazine HCl (Apresoline Iv*) 5 mg IV SLOW PU Q6H PRN PRN Reason: SYSTOLIC BP GREATER THAN: Lorazepam (Ativan Tab(*)) 0.5 mg PO Q6H PRN PRN Reason: ANXIETY Last Admin: 11/11/18 21:26 Dose: 0.5 mg Magnesium Oxide (Magox 400 Tab*) 400 mg PO BID [facility] Last Admin: 11/12/18 08:36 Dose: 400 mg Melatonin (Melatonin) 3 mg PO BEDTIME PRN; Protocol PRN Reason: SLEEP Last Admin: 11/11/18 21:25 Dose: 3 mg Metoprolol Succinate (Toprol Xl Tab*) 50 mg PO BID [facility] Last Admin: 11/12/18 08:36 Dose: 50 mg Nitroglycerin (Nitroglycerin Tab 0.4 Mg*) 0.4 mg SL Q5M PRN PRN Reason: ANGINA Last Admin: 11/12/18 05:09 Dose: 0.4 mg Pantoprazole Sodium (Protonix Tab*) 40 mg PO DAILY [facility] Last Admin: 11/12/18 08:36 Dose: 40 mg Potassium Chloride (Klor Con Er Tab*) 20 meq PO BID [facility] Last Admin: 11/12/18 08:35 Dose: 20 meq Potassium Chloride (Klor Con Er Tab*) 40 meq PO DAILY [facility] Last Admin: 11/12/18 08:35 Dose: 40 meq Prednisone (Deltasone Tab*) 40 mg PO DAILY [facility] Last Admin: 11/12/18 08:36 Dose: 40 mg Rivaroxaban (Xarelto(*)) 20 mg PO DAILY [facility] Last Admin: 11/12/18 08:35 Dose: 20 mg Senna (Senokot Tab*) 1 tab PO DAILY [facility] Last Admin: 11/12/18 08:35 Dose: 1 tab Sotalol HCl (Betapace Tab*) 80 mg PO BID [facility] Last Admin: 11/12/18 08:36 Dose: 80 mg Torsemide (Demadex*) 20 mg PO DAILY [facility] Last Admin: 11/12/18 08:42 Dose: 20 mg Tramadol HCl (Ultram*) 50 mg PO Q12H PRN PRN Reason: PAIN Last Admin: 11/11/18 21:26 Dose: 50 mg Objective Vital Signs: Temp Pulse Resp BP Pulse Ox 97.3 F 63 16 132/91 100 11/12/18 08:13 11/12/18 08:13 11/12/18 08:13 11/12/18 08:13 11/12/18 08:13 Oxygen Devices in Use Now: None, Nasal Cannula Appearance: sleeping in bed upon entering room. NAD, A+O x3 Eyes: No Scleral Icterus, PERRLA Ears/Nose/Mouth/Throat: NL Teeth, Lips, Gums, Mucous Membranes Moist Neck: NL Appearance and Movements; NL JVP, Trachea Midline, No Thyroid Enlargement, Masses, - Respiratory: Symmetrical Chest Expansion and Respiratory Effort, - - Diminished throughout. + inspiratory wheezes noted in bases. Cardiovascular: NL Sounds; No Murmurs; No JVD, - - 1+ pretibial edema Abdominal: NL Sounds; No Tenderness; No Distention Skin: No Rash or Ulcers Neurological: Alert and Oriented x 3 Lines/Tubes/Other Access: Clean, Dry and Intact Peripheral IV Laboratory Results: 11/12/18 05:56 11/11/18 13:56 Total Bilirubin 0.30 mg/dL (0.2-1.0) 11/04/18 09:38 Direct Bilirubin 0.10 mg/dL (0.03-0.18) 11/04/18 09:38 Indirect Bilirubin 0.2 mg/dL (0.3-1.0) L 11/04/18 09:38 AST 37 U/L (13-39) 11/04/18 09:38 ALT 46 U/L (7-52) 11/04/18 09:38 Alkaline Phosphatase 80 U/L (34-104) 11/04/18 09:38 CK-MB (CK-2) 4.3 ng/mL (0.6-6.3) 11/03/18 10:58 B-Natriuretic Peptide 370 pg/mL (<=100) H 11/03/18 10:58 Total Protein 6.1 g/dL (6.4-8.9) L 11/04/18 09:38 Albumin 3.8 g/dL (3.2-5.2) 11/04/18 09:38 Globulin 2.3 g/dL (2-4) 11/04/18 09:38 Albumin/Globulin Ratio 1.7 (1-3) 11/04/18 09:38 11/03/18 11/09/18 10:58 06:07 Troponin I 0.01 0.02 Laboratory Results - last 24 hr 11/11/18 11/11/18 11/12/18 10:43 13:56 05:56 WBC 21.3 H RBC 3.37 L Hgb 11.1 L Hct 34 L MCV 100 H MCH 33 H MCHC 33 RDW 16 H Plt Count 152 MPV 7.5 Neut % (Auto) Not Reportable Lymph % (Auto) Not Reportable [place] % (Auto) Not Reportable Eos % (Auto) Not Reportable Baso % (Auto) Not Reportable Absolute Neuts (auto) 17.9 H Absolute Lymphs (auto) 1.2 Absolute Monos (auto) 2.0 H Absolute Eos (auto) 0.1 Absolute Basos (auto) 0 Absolute Nucleated RBC Not Reportable Immature Gran % 3 Neutrophils % 84 Lymphocytes % 4 Monocytes % 9 Metamyelocytes % 3 H Nucleated RBC % Not Reportable Abs Neuts (Manual) 18.5 H Abs Lymphs (Manual) 0.9 L Abs Monocytes (Manual) 1.9 H Normal RBC Morphology Not Reportable Polychromasia 1+ Anisocytosis 1+ Potassium TNP 4.8 Anion Gap 6 EKG Data: todays EKG reviewed NSR rate [address] abnormalities diffusely. Reviewed Telemetry NSR rate 70-80, no VPC or VT. No AF since . occasional PACs Assessment/Plan #1 COPD exacerbation, patient states breathing is improving. Differ to primary team whom have been managing #2 h/o PAF; No recurrent PAF since Sotalol initiated on 11/10/2018. Qtc is stable on today's ekg. Await BMP and Mag. Goal is K+ >4, Mag> 2. He tends to waste K+ and mag due to UC with colostomy. Continue Xarelto 20mg PO daily with meal. He is s/p redo AF ablation 08/2018. Continue Diltiazem 240mg Po daily. 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 LVEF on yesterdays echo 55-60%. Appears compensated on exam. 1+ pretibial edema appears to be related to steroids. Continue Torsemide 20mg PO daily which was home prn dose. #4 h/o HTN; BP today 132/91. controlled. continue current medication regimen. #5 h/o UC per patient he has a tentative surgical date 11/16/2018 for surgery. #6 Disposition pending course will follow as tomorrow will be day 3 of Sotalol load. QTc has remained stable. Continue daily BMP and Mag levels. Attending: Annmarie Chavez
[2018-11-12] MEDS: LORazepam TAB(*) 0.5 MG PO PRN ×2 (11:48→21:39)
[2018-11-12 14:51] LABS: BUN/Creatinine Ratio 22.7 (8-20); Blood Urea Nitrogen 25 mg/dL (6-24); CO2 Carbon Dioxide 31 mmol/L (22-32); Calcium 9.3 mg/dL (8.6-10.3); Chloride 98 mmol/L (101-111); EGFR African American 83.5 (>60); Glucose 167 mg/dL (70-100); Sodium 136 mmol/L (135-145)
[2018-11-12 15:06] LABS: Anion Gap 7 mmol/L (2-11)
[2018-11-12] MEDS: Albuterol/Ipratropium NEB.SOL* Albuterol 2.5 MG/Ipratropium 0.5 MG 3 ML INH PRN (15:15)
--- NOTE | 2018-11-12 16:18 | PN ---
Subjective Date of Service: 11/12/18 Interval History: Patient observed walking around unit this morning. On assessment patient was sleeping. O2 monitor placed and patient was 96% on room air while resting. Patient reports shortness of breath is improving. Continues to have mild shortness of breath with exertion, but improving. No shortness of breath with rest or lying flat. Reports cough is less frequent and nonproductive. Denies cp, palpitations, diaphoresis, dizziness, nausea. Reports edema is improving, specifically, edema in abd. Objective Active Medications: Acetaminophen (Tylenol Tab*) 650 mg PO Q6H PRN PRN Reason: FEVER/PAIN Albuterol/Ipratropium (Duoneb (Albuterol 2.5 Mg/Ipratropium 0.5 Mg)) 1 neb INH Q4H PRN PRN Reason: SOB/WHEEZING Last Admin: 11/12/18 15:15 Dose: 1 neb Diltiazem HCl (Cardizem Cd Cap*) 240 mg PO DAILY [facility] Last Admin: 11/12/18 08:35 Dose: 240 mg Gabapentin (Neurontin Cap(*)) 100 mg PO BEDTIME [facility] Last Admin: 11/11/18 21:27 Dose: 100 mg Hydralazine HCl (Apresoline Iv*) 5 mg IV SLOW PU Q6H PRN PRN Reason: SYSTOLIC BP GREATER THAN: Lorazepam (Ativan Tab(*)) 0.5 mg PO Q6H PRN PRN Reason: ANXIETY Last Admin: 11/12/18 11:48 Dose: 0.5 mg Magnesium Oxide (Magox 400 Tab*) 400 mg PO BID [facility] Last Admin: 11/12/18 08:36 Dose: 400 mg Melatonin (Melatonin) 3 mg PO BEDTIME PRN; Protocol PRN Reason: SLEEP Last Admin: 11/11/18 21:25 Dose: 3 mg Metoprolol Succinate (Toprol Xl Tab*) 50 mg PO BID [facility] Last Admin: 11/12/18 08:36 Dose: 50 mg Nitroglycerin (Nitroglycerin Tab 0.4 Mg*) 0.4 mg SL Q5M PRN PRN Reason: ANGINA Last Admin: 11/12/18 05:09 Dose: 0.4 mg Pantoprazole Sodium (Protonix Tab*) 40 mg PO DAILY [facility] Last Admin: 11/12/18 08:36 Dose: 40 mg Potassium Chloride (Klor Con Er Tab*) 20 meq PO BID [facility] Last Admin: 11/12/18 08:35 Dose: 20 meq Potassium Chloride (Klor Con Er Tab*) 40 meq PO DAILY [facility] Last Admin: 11/12/18 08:35 Dose: 40 meq Prednisone (Deltasone Tab*) 40 mg PO DAILY [facility] Last Admin: 11/12/18 08:36 Dose: 40 mg Rivaroxaban (Xarelto(*)) 20 mg PO DAILY [facility] Last Admin: 11/12/18 08:35 Dose: 20 mg Senna (Senokot Tab*) 1 tab PO DAILY [facility] Last Admin: 11/12/18 08:35 Dose: 1 tab Sotalol HCl (Betapace Tab*) 80 mg PO BID [facility] Last Admin: 11/12/18 08:36 Dose: 80 mg Torsemide (Demadex*) 20 mg PO DAILY [facility] Last Admin: 11/12/18 08:42 Dose: 20 mg Tramadol HCl (Ultram*) 50 mg PO Q12H PRN PRN Reason: PAIN Last Admin: 11/11/18 21:26 Dose: 50 mg Vital Signs - 8 hr 11/12/18 11/12/18 11/12/18 11:48 11:51 15:20 Temperature 97.5 F Pulse Rate 73 66 Respiratory 16 16 18 Rate Blood Pressure 138/93 (mmHg) O2 Sat by Pulse 98 99 Oximetry Oxygen Devices in Use Now: None Appearance: Comfortable, NAD Eyes: No Scleral Icterus Ears/Nose/Mouth/Throat: Clear Oropharnyx, Mucous Membranes Moist Neck: NL Appearance and Movements; NL JVP Respiratory: Symmetrical Chest Expansion and Respiratory Effort, - - Mildly decreased aeration with sporadic wheezing. Cardiovascular: NL Sounds; No Murmurs; No JVD, RRR, - - +1 pitting edema to LLE. Trace edema to RLE Abdominal: NL Sounds; No Tenderness; No Distention Lymphatic: No Cervical Adenopathy Extremities: No Clubbing, Cyanosis Skin: No Nodules or Sclerosis Neurological: Alert and Oriented x 3 Nutrition: Taking PO's Result Diagrams: 11/12/18 05:56 11/12/18 15:30 Additional Lab and Data: Laboratory Results - last 24 hr 11/12/18 11/12/18 11/12/18 05:56 11:38 14:21 WBC 21.3 H RBC 3.37 L Hgb 11.1 L Hct 34 L MCV 100 H MCH 33 H MCHC 33 RDW 16 H Plt Count 152 MPV 7.5 Neut % (Auto) Not Reportable Lymph % (Auto) Not Reportable [place] % (Auto) Not Reportable Eos % (Auto) Not Reportable Baso % (Auto) Not Reportable Absolute Neuts (auto) 17.9 H Absolute Lymphs (auto) 1.2 Absolute Monos (auto) 2.0 H Absolute Eos (auto) 0.1 Absolute Basos (auto) 0 Absolute Nucleated RBC Not Reportable Immature Gran % 3 Neutrophils % 84 Lymphocytes % 4 Monocytes % 9 Metamyelocytes % 3 H Nucleated RBC % Not Reportable Abs Neuts (Manual) 18.5 H Abs Lymphs (Manual) 0.9 L Abs Monocytes (Manual) 1.9 H Normal RBC Morphology Not Reportable Polychromasia 1+ Anisocytosis 1+ Sodium 136 Potassium TNP Chloride 98 L Carbon Dioxide 31 Anion Gap 7 BUN 25 H Creatinine 1.10 Est GFR ( Amer) 83.5 Est GFR (Non-Af Amer) 69.0 BUN/Creatinine Ratio 22.7 H Glucose 167 H Calcium 9.3 Magnesium 2.0 11/12/18 15:30 WBC RBC Hgb Hct MCV MCH MCHC RDW Plt Count MPV Neut % (Auto) Lymph % (Auto) [place] % (Auto) Eos % (Auto) Baso % (Auto) Absolute Neuts (auto) Absolute Lymphs (auto) Absolute Monos (auto) Absolute Eos (auto) Absolute Basos (auto) Absolute Nucleated RBC Immature Gran % Neutrophils % Lymphocytes % Monocytes % Metamyelocytes % Nucleated RBC % Abs Neuts (Manual) Abs Lymphs (Manual) Abs Monocytes (Manual) Normal RBC Morphology Polychromasia Anisocytosis Sodium Potassium TNP Chloride Carbon Dioxide Anion Gap BUN Creatinine Est GFR ( Amer) Est GFR (Non-Af Amer) BUN/Creatinine Ratio Glucose Calcium Magnesium Microbiology and Other Data: Microbiology 11/11/18 09:39 Sputum Expectorated Gram Stain - Final 11/03/18 21:00 Blood Venous Aerobic Blood Culture - Final No Growth Day 5 11/03/18 21:00 Blood Venous Anaerobic Blood Culture - Final No Growth Day 5 11/03/18 21:00 Blood Venous Aerobic Blood Culture - Final No Growth Day 5 11/03/18 21:00 Blood Venous Anaerobic Blood Culture - Final No Growth Day 5 11/03/18 12:44 Urine Urine Culture - Final No Growth (<1,000 CFU/mL) 11/03/18 21:40 Nasal Nasal Screen MRSA (PCR) - Final Mrsa Not Detected 11/03/18 12:44 Nasopharyngeal Influenza Types A,B Antigen - Final Specimen received for Influenza A/B Molecular testing Assess/Plan/Problems-Billing Assessment: 57 yo M with PMH 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 Remains diuresing as able. - Patient Problems (1) Acute and chronic respiratory failure with hypoxia Comment: - COPD exacerbation on admission and continued SOB with exertion, but improving - BiPAP QHS (already on home CPAP and was transitioning to bipap) - S/P Ceftriaxone and Azithromycin Day / on 11/09 - DC on 11/10 - Transition from IV to PO steriods. Today received Prednisone 40mg (2) Atrial fibrillation with RVR Comment: - Cardiology following patient. - NSR on Sotalol 80 mg BID which was initiated on 11/10/18 - Cont Toprol, Xarelto, and Diltiazem - Avoid QT prolongated medication (3) Atypical chest pain Comment: - Reports chest pain when previously experiencing arrhythmia. - Currently NSR and chest pain free. - Cont to monitor (4) CHF exacerbation Comment: - HFpEF from prior echos (ef 55-60% IN 08/2018) - Yesterday's echo reveals no change since 08/2018 echo - Cardiology is diuresing. Initially with Lasix, but now on home dose of Torsemide (5) COPD exacerbation Comment: - See Acute on Chronic Respiratory Failure. (6) Constipation Comment: - Likely / to opiates - Senna initiated 11/08 - Per nursing documentation, last BM x2 on 11/09/18 (7) Pneumonia Comment: - S/P ceftriaxone and azithromycin. Completed course, therefore, d/c'd on 11/10 (8) Daily consumption of alcohol Comment: -No e/o withdrawal here, sig anxiety and on PRN ativan (9) DVT prophylaxis Comment: - Xarelto Status and Disposition: Inpatient. Disposition pending as tomorrow is day 3 of Sotolol and will be reassessed by cardiology Attending: Mika Spears
[2018-11-12] MEDS: Albuterol/Ipratropium NEB.SOL* Albuterol 2.5 MG/Ipratropium 0.5 MG 3 ML INH SCH ×2 (19:28→23:09)
[2018-11-12] MEDS: Melatonin 3 MG TAB PO PRN (21:38)
[2018-11-12] MEDS: Gabapentin CAP(*) 100 MG PO SCH (21:38)
[2018-11-12] MEDS: traMADol TAB* 50 MG PO PRN (21:39)
[2018-11-13] MEDS: Albuterol/Ipratropium NEB.SOL* Albuterol 2.5 MG/Ipratropium 0.5 MG 3 ML INH SCH ×3 (01:41→11:09)
[2018-11-13 07:18] LABS: Hematocrit 33 % (42-52); Hemoglobin 10.9 g/dl (14.0-18.0); Mean Corpuscular HGB Conc 33 g/dl (31-36); Mean Corpuscular Hemoglobin 33 pg (27-31); Mean Corpuscular Volume 99 fL (80-94); Mean Platelet Volume 7.7 fL (7.4-10.4); Platelet Count 143 10^3/ul (150-450); Red Blood Count 3.32 10^6/ul (4.00-5.40); Red Cell Distribution Width 16 % (10.5-15); White Blood Count 20.9 10^3/ul (3.5-10.8)
[2018-11-13 07:32] LABS: Calcium 9.3 mg/dL (8.6-10.3); EGFR African American 97.7 (>60); EGFR Non-African American 80.7 (>60); Magnesium 1.9 mg/dL (1.9-2.7); Potassium 4.2 mmol/L (3.5-5.0)
[2018-11-13 07:52] LABS: ABS Basophils 0 10^3/ul (0-0.2); ABS Eosinophils 0.1 10^3/ul (0-0.6); ABS Lymphocytes 1.3 10^3/ul (1.0-4.8); ABS Monocytes 1.8 10^3/ul (0-0.8); ABS Neutrophils 17.7 10^3/ul (1.5-7.7); ABS Nucleated RBC 0 10^3/ul; Eosinophil % 0.4 %; Lymphocyte % 6.1 %; Nucleated Red Blood Cells % 0.1
[2018-11-13 08:10] VITALS: BP 146/82
[2018-11-13] MEDS: Potassium Chlor TAB* 10 MEQ TAB.ER PO SCH (09:40)
[2018-11-13] MEDS: Magnesium Oxide TAB* 400 MG PO SCH (09:48)
[2018-11-13] MEDS: Diltiazem CD CAP* 240 MG PO SCH (09:48)
[2018-11-13] MEDS: Senna TAB PO SCH (09:48)
[2018-11-13] MEDS: Rivaroxaban TAB(*) 20 MG TAB PO SCH (09:48)
[2018-11-13] MEDS: Pantoprazole TAB * 40 MG TAB PO SCH (09:48)
[2018-11-13] MEDS: Metoprolol Succinate XL TAB* 50 MG PO SCH (09:48)
[2018-11-13] MEDS: Potassium Chlor TAB* 20 MEQ TAB.ER PO SCH (09:48)
[2018-11-13] MEDS: Sotalol TAB* 80 MG PO SCH (09:48)
[2018-11-13] MEDS: Torsemide TAB* 20 MG PO SCH (09:48)
[2018-11-13] MEDS: predniSONE TAB* 20 MG PO SCH (09:53)
[2018-11-13] MEDS ORDERED: predniSONE TAB* 20 MG PO SCH (10:00)
--- NOTE | 2018-11-13 15:29 | DS ---
CC: Dr. Kennedy; Dr. Heredia * DISCHARGE SUMMARY: DATE OF ADMISSION: 11/03/18 DATE OF DISCHARGE: 11/13/18 DISPOSITION: Against medical advice. PRINCIPAL DISCHARGE DIAGNOSES: 1. Acute on chronic hypoxic respiratory failure. 2. Chronic obstructive pulmonary disease exacerbation. 3. Atrial fibrillation with rapid ventricular response. SECONDARY DISCHARGE DIAGNOSES: 1. History of sick sinus syndrome, status post pacemaker. 2. History of ulcerative colitis. 3. History of tachycardia-induced cardiomyopathy with subsequent normalization of ejection fraction. 4. Hypertension. 5. History of difficult to control atrial fibrillation with 2 failed atrial fibrillation ablations. DISCHARGE MEDICATIONS: 1. Incruse Ellipta 62.5 mcg inhaled daily. 2. Symbicort 2 puffs inhaled b.i.d. 3. Xarelto 20 mg daily. 4. Protonix 40 mg daily. 5. Levalbuterol 1 to 2 puffs q.6 p.r.n. wheezing. 6. KCl 10 mEq daily. 7. Gabapentin 100 mg 1 to 3 caps p.o. q.h.s. p.r.n. pain. 8. Magnesium oxide 400 mg b.i.d. 9. Toprol-XL 100 mg b.i.d. 10. Cardizem CD 240 mg daily. 11. Prednisone 50 mg daily for 5 more days. 12. Sotalol 80 mg b.i.d. 13. Torsemide 20 mg daily p.r.n. swelling. HOSPITAL COURSE BY PROBLEM: 1. Acute hypoxic respiratory failure. Mr. Yen normally wears 2 L of oxygen nocturnally and p.r.n. When he got to the emergency department, he initially required Vapotherm, which was then transitioned to BiPAP. The etiology was thought to be secondary to a COPD exacerbation related to community -acquired pneumonia. He was eventually weaned back to his home O2 requirement and at the time of discharge, he is comfortable on room air; however, he does drop to 87% with ambulation, which resolved with 1 L nasal cannula and he is leaving the hospital on 1 L of nasal cannula which is at his baseline. 2. COPD exacerbation. Mr. Yen has had repeated admissions for COPD exacerbations despite his cessation of smoking. This exacerbation appeared to be related to a pneumonia. He is compliant with his home inhalers. He was treated with steroids and nebulizers inpatient and recovered quickly. 3. Community-acquired pneumonia. He received an 8-day course of ceftriaxone and azithromycin. 4. Atrial fibrillation with RVR. Mr. Yen has a long history of difficult to control AFib. He has had 2 failed ablations and takes multiple agents at home. He still was found to be in RVR at admission and required a Cardizem drip throughout his stay. He went into AFib with RVR and ultimately Cardiology was consulted on 11/09/18 and recommended initiating sotalol. He converted to normal sinus rhythm and his QTc remained stable on sotalol. He is being discharged on sotalol and needs closed Cardiology followup. 5. AMA. I was called to evaluate Mr. Yen on 11/13/18 for a request to leave against medical advice. I had not yet evaluated him and I requested that he stay for me to evaluate him and discuss his plan of care; however, he declined and said he would leave AMA regardless of my opinion. Therefore, I was unable to examine him at the time of discharge; however, I did discuss the findings in his record and my concerns with him including ongoing and worsening respiratory failure, ongoing and/or worsening heart failure, arrhythmias and . 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 I encouraged him to come back to the emergency department should he experience palpitations, lightheadedness, chest pain, shortness of breath, orthopnea, weight gain, or any other new symptoms. At the time of discharge, he expresses good understanding of his current condition and good ability to problem solve should he run into any issues at home. I have sent his new medications to his pharmacy and he agrees to pick those up. PHYSICAL EXAM AT THE TIME OF DISCHARGE: Refused by the patient. TIME SPENT: 60 minutes was spent on this discharge. [id number]/[facility] #: [id number] ELIUD
== END 2018-11-13 12:45 | disposition left against medical advice (07) | DRG 140 ==
LOC: ED 10:43 → ICU 13:08 → MEDTELE 11-04 16:18
PROVIDERS: ADMIT Internal Medicine Critical Care Medicine; ATTEND Internal Medicine
PROC: 5A09357 Assistance with Respiratory Ventilation, Less than 24 Consecutive Hours, Continuous Positive Airway Pressure (ICD-10-PCS; principal; 2018-11-03)
DX: J44.1 Chronic obstructive pulmonary disease with (acute) exacerbation (principal); J96.22 Acute and chronic respiratory failure with hypercapnia; J18.9 Pneumonia, unspecified organism; J96.21 Acute and chronic respiratory failure with hypoxia; I50.33 Acute on chronic diastolic (congestive) heart failure; R64 Cachexia; I48.92 Unspecified atrial flutter; E87.1 Hypo-osmolality and hyponatremia; I48.1 Persistent atrial fibrillation; I42.8 Other cardiomyopathies; E87.2 Acidosis; I47.1 Supraventricular tachycardia; I27.20 Pulmonary hypertension, unspecified; G47.33 Obstructive sleep apnea (adult) (pediatric); I11.0 Hypertensive heart disease with heart failure; I48.2 Chronic atrial fibrillation; J44.0 Chronic obstructive pulmonary disease with (acute) lower respiratory infection; R79.89 Other specified abnormal findings of blood chemistry; I48.0 Paroxysmal atrial fibrillation; K59.00 Constipation, unspecified; R07.9 Chest pain, unspecified; Z88.8 Allergy status to other drugs, medicaments and biological substances; Z95.0 Presence of cardiac pacemaker; Z72.89 Other problems related to lifestyle; Z88.1 Allergy status to other antibiotic agents; Z93.3 Colostomy status; Z86.19 Personal history of other infectious and parasitic diseases; Z82.49 Family history of ischemic heart disease and other diseases of the circulatory system; Z87.891 Personal history of nicotine dependence; Z79.01 Long term (current) use of anticoagulants; Z68.25 Body mass index [BMI] 25.0-25.9, adult
CPT/HCPCS: 36415; 71045; 71046; 80048; 80053; 80076; 81003; 81015; 82553; 82803; 83605; 83735; 83880; 84132; 84484; 85025; 85027; 86140; 87040; 87070; 87077; 87086; 87205; 87641; 93005; 93306; 94640; 94660; 99285; A9270-GY; J0456; J0696; J1100; J1650; J1940; J2270; J2543; J2920; J3475; J7512

== ENCOUNTER 2018-12-02 20:20 | Inpatient (IN) | payer OTHER ==
[2018-12-02] MEDS ORDERED: Albuterol/Ipratropium NEB.SOL* Albuterol 2.5 MG/Ipratropium 0.5 MG 3 ML ONE (20:28)
[2018-12-02] MEDS ORDERED: NS 0.9% 1000 ML** 1,000 ML IV ONE (20:28)
--- NOTE | 2018-12-02 20:39 | ED ---
Shortness of Breath - HPI Summary HPI Summary: Patient is a 57 y/o male brought in by EMS who presents to the ED c/o SOB. As per EMS, he was released from [facility] for COPD exacerbation earlier today. As per medical records, he was dyspneic with an O2 sat of 94%. PTX, PNA, and PE were ruled out. Patient was only home for two hours when he called EMS again. He was given three Duoneb treatments by EMS around 20:00. EMS reports diaphoresis and a shallow pulse. Patient had a normal EKG by EMS. He is unable to speak due to his respiratory distress, but is able to nod his head in response to questions. He is on 2 L O2 NC at home. Patient denies any fever. PMHx COPD, difficult to control AFib, asthma, PNA, sleep apnea, CHF, SSS, pacemaker, HTN. He has prior admissions [place] [facility] [place] and AFib. Most recently, he was admitted from 11/03/18 until 11/13/18, and 11/21/18 to . Pt was recently placed on antibiotics and Prednisone for cough and SOB last week. Patient is a former smoker. He is tachycardic in the room with a rate of 145 bpm. Patient is a level 5 caveat due to his inability to speak. - History of Current Complaint Hx Obtained From: Patient, EMS Hx From Patient Unobtainable Due To: Other - unable to speak Onset/Duration: Gradual Onset, Lasting Hours - 20:00 today, Still Present Timing: Constant Dyspnea At: Rest Aggrevating Factors: Nothing Associated Signs & Symptoms: Diaphoresis Related History: Similar Episode - COPD exacerbation - Allergy/Home Medications Allergies/Adverse Reactions: Allergies Allergy/AdvReac Type Severity Reaction Status Date / Time ciprofloxacin Allergy Itching Verified 09/20/18 09:07 PMH/Surg Hx/FS Hx/Imm Hx Endocrine/Hematology History: Reports: Hx Anticoagulant Therapy Denies: Hx Diabetes, Hx Systemic Lupus Erythematosus, Hx Thyroid Disease Cardiovascular History: Reports: Hx Atrial Fibrillation - no anticoagulants used currently, Hx Auto Implanted Cardiovert Defib, Hx Congestive Heart Failure , Hx Hypertension, Hx Syncope Denies: Hx Deep Vein Thrombosis, Hx Myocardial Infarction, Hx Pacemaker/ICD Respiratory History: Reports: Hx Asthma, Hx Chronic Obstructive Pulmonary Disease (COPD), Hx Pneumonia, Hx Sleep Apnea Denies: Hx Lung Cancer, Hx Pulmonary Embolism GI History: Reports: Hx Gastrointestinal Bleed, Hx Obstructive Bowel, Hx Ileostomy - colostomy 2012, Other GI Disorders - colostomy, ulcerative colitis Denies: Hx Gall Bladder Disease, Hx Ulcer, Hx Urosepsis History: Denies: Hx Kidney Stones, Hx Renal Disease Musculoskeletal History: Reports: Hx Orthopedic Injury - surgeries in both knees Denies: Hx Arthritis, Hx Rheumatoid Arthritis, Hx Osteoporosis Sensory History: Reports: Hx Contacts or Glasses Denies: Hx Hearing Aid, Other Sensory Impairments Opthamlomology History: Reports: Hx Contacts or Glasses Denies: Other Sensory Impairments Neurological History: Denies: Hx Dementia, Hx Migraine, Hx Seizures, Hx Transient Ischemic Attacks (TIA) Psychiatric History: Denies: Hx Anxiety, Hx Depression, Hx Schizophrenia, Hx Bipolar Disorder - Cancer History Cancer Type, Location and Year: None reported Hx Chemotherapy: No - Surgical History Surgery Procedure, Year, and Place: COLECTOMY FOR ULCERATIVE COLITIS AT [facility] - has ostomy now 12/2012; bilat knees for cartilage. Tonsils. pacemaker left chest Hx Anesthesia Reactions: No - Immunization History Date of Influenza Vaccine: 06/07/16 Infectious Disease History: Unable to Obtain/Confirm Infectious Disease History: Reports: Hx Hepatitis - hep c Denies: Hx Clostridium Difficile, Hx Human Immunodeficiency Virus (HIV), Hx of Known/Suspected MRSA, Hx Shingles, Hx Tuberculosis, Hx Known/Suspected VRE, Hx Known/Suspected VRSA, History Other Infectious Disease, Traveled Outside the [place] in Last 30 Days - [place] - Family History Known Family History: Positive: Hypertension, Respiratory Disease - Social History Alcohol Use: Rare Alcohol Amount: was daily Hx Substance Use: No Substance Use Type: Reports: None Hx Tobacco Use: Yes Smoking Status (MU): Former Smoker Type: Cigarettes Amount Used/How Often: 1/2 ppd Length of Time of Smoking/Using Tobacco: 40 years Have You Smoked in the Last Year: Yes Review of Systems Positive: Skin Diaphoresis. Negative: Fever Positive: Shortness Of Breath All Other Systems Reviewed And Are Negative: No Physical Exam - Summary Physical Exam Summary: Appearance: Ill appearing, no pain distress, diaphoretic Skin: warm, dry, reflects adequate perfusion Head/face: normal Eyes: EOMI, WALLACE ENT: mucous membranes moist Neck: supple, non-tender Respiratory: expiratory wheezes, breath sounds diffusely diminished, severe respiratory distress, unable to speak Cardiovascular: tachycardic but regular rhythm, pulses symmetrical, pacemaker left chest, 1+ pitting edema of BLE Abdomen: non-tender, soft, colostomy bag RLQ Bowel Sounds: present Musculoskeletal: normal, strength/ROM intact Neuro: normal, sensory motor intact, A&Ox3 Triage Information Reviewed: Yes Vital Signs On Initial Exam: Initial Vitals Temp Pulse Resp BP Pulse Ox 98.2 F 155 36 147/99 96 12/02/18 20:31 12/02/18 20:31 12/02/18 20:31 12/02/18 20:31 12/02/18 20:31 Vital Signs Reviewed: Yes Completion Of Physical Exam Limited Due To: Level 5 - unable to speak Procedures - Intubation Time of Intubation: 20:30 Intubation Method: orotracheal Tube Size (cm): 7.5 - with glidescope no. 3 Medications: Succinylcholine - and ketamine Breath Sounds after Intubation: equal Intubation Complications: no complications Post Intubation Xray: Yes - ET tube confirmed Progress/Xray Impression: ET tube is appropriately placed. Diagnostics - Vital Signs Vital Signs Temp Pulse Resp BP Pulse Ox 12/02/18 20:31 98.2 F 155 36 147/99 96 - Laboratory Result Diagrams: 12/02/18 22:03 12/02/18 22:03 Lab Statement: Any lab studies that have been ordered have been reviewed, and results considered in the medical decision making process. - Radiology CXR Radiology Interpretation Completed By: ED Physician Summary of Radiographic Findings: Infiltrate in right base. ET tube appropriate. Pending official radiology report. - EKG 20:59 Cardiac Rate: Tachycardia - 145 bpm EKG Rhythm: Sinus Tachycardia Summary of EKG Findings: Nl axis, mild ST depression in lateral leads. Re-Evaluation - Re-Evaluation First Eval Re-Evaluation Time: 21:13 Change: Improved Comment: Pt is improving since the intubation. Second Eval Re-Evaluation Time: 21:33 Change: Unchanged Comment: Changed to pressure control. Course/Dx - Course Course Of Treatment: Nurse's notes reviewed. Patient presents in severe respiratory distress and we attempted to use Vapotherm however the patient wasn' t too significant of distress. He was prepared for intubation and intubated uneventfully with ketamine, succinyl choline. He did not tolerate volume control ventilation very well and was converted over to pressure control which he tolerated much better. His O2 sats which had been in the 70s on arrival maintained easily above 95%. He had received 2 g of IV magnesium by EMS. Records were obtained from [facility] where he was treated earlier in the night and there was no evidence that steroids were given. IV steroid was given here as well as IV fluids and antibiotics to cover nosocomial infections given his recent hospital visits. He does have grossly elevated WBC. He'll be admitted to the ICU on the ventilator for his hypercapnic respiratory failure and possible pneumonia. - Diagnoses Differential Diagnosis/HQI/PQRI: Positive: Asthma, Bronchitis, CHF, COPD Exacerbation, [place], Pneumonia Provider Diagnoses: Acute respiratory failure, Right lower lobe pneumonia, COPD exacerbation - Physician Notifications Discussed Care of Patient With: Anita Galdamez Time Discussed With Above Provider: 21:45 Instructed by Provider To: Admit As Inpatient - Critical Care Time Critical Care Time: 30-74 min - CCT is EXCLUSIVE of separately billable procedures. Discharge - Sign-Out/Discharge Documenting (check all that apply): Patient Departure - admit Patient Received Moderate/Deep Sedation with Procedure: No - Discharge Plan Condition: Critical Disposition: ADMITTED TO [facility] - Billing Disposition and Condition Condition: CRITICAL Disposition: Admitted to [facility] - Attestation Statements Document Initiated by Ej: Yes Documenting Scribe: Gardenia Hoffman Provider For Whom Ej is Documenting (Include Credential): Girma Mclean MD Scribe Attestation: Gardenia Rosenberg, scribed for Girma Mclean MD on 12/03/18 at 0323. Scribe Documentation Reviewed: Yes Provider Attestation: The documentation as recorded by the Gardenia rangel accurately reflects the service I personally performed and the decisions made by me, Girma Mclean MD Status of Scribe Document: Viewed
[2018-12-02] MEDS ORDERED: KETAMINE HCL* 50 MG/ML 10 ML VIAL ONE (20:40)
[2018-12-02] MEDS ORDERED: Succinylcholine* 20 MG/ML 10 ML VIAL ONE (20:40)
[2018-12-02] MEDS ORDERED: Propofol* 100 ML ONE (20:45)
[2018-12-02] MEDS: Propofol* 100 ML IV SCH (20:51)
[2018-12-02] MEDS ORDERED: methylPREDNISolone 125 MG* 2 ML VIAL IV ONE (20:54)
[2018-12-02] MEDS ORDERED: Vancomycin(*) 1,000 MG VIAL IVPB SCH (21:00)
[2018-12-02] MEDS ORDERED: Cefepime 2 GM in Dextrose(*) 2 GM/50 ML BAG IV ONE (21:00)
[2018-12-02] MEDS ORDERED: KETAMINE HCL* 50 MG/ML 10 ML VIAL IV ONE ×2 (21:16→21:40)
[2018-12-02] MEDS ORDERED: Vancomycin(*) 1,250 MG IV x ONCE IVPB ONE ×2 (22:00)
[2018-12-02 22:15] LABS: Hematocrit 36 % (36-46); Hemoglobin 11.6 g/dL (14.0-18.0); Mean Corpuscular HGB Conc 32 g/dL (31-36); Mean Corpuscular Hemoglobin 32 pg (27-31); Mean Corpuscular Volume 98 fL (80-94); Mean Platelet Volume 7.9 fL (7.4-10.4); Platelet Count 261 10^3/uL (150-450); Red Blood Count 3.65 10^6 /uL (4.18-5.48); Red Cell Distribution Width 16 % (10.5-15); White Blood Count 23.4 10^3/uL (3.5-10.8)
[2018-12-02 22:16] LABS: Influenza A Molecular NEGATIVE (Negative); Influenza B Molecular NEGATIVE (Negative)
[2018-12-02 22:21] LABS: INR 1.12 (0.77-1.02)
[2018-12-02 22:32] LABS: ALT 127 U/L (7-52); AST 83 U/L (13-39); Albumin 3.7 g/dL (3.2-5.2); Albumin/Globulin Ratio 1.7 (1-3); Alkaline Phosphatase 95 U/L (34-104); Anion Gap 10 mmol/L (2-11); Blood Urea Nitrogen 26 mg/dL (6-24); C Reactive Protein 10.07 mg/L (<8.01); CO2 Carbon Dioxide 29 mmol/L (22-32); Calcium 8.4 mg/dL (8.6-10.3); Chloride 97 mmol/L (101-111); EGFR African American 72.7 (>60); EGFR Non-African American 60.1 (>60); Globulin 2.2 g/dL (2-4); Glucose 174 mg/dL (70-100); Potassium 4.3 mmol/L (3.5-5.0); Sodium 136 mmol/L (135-145); Total Protein 5.9 g/dL (6.4-8.9)
[2018-12-02] MEDS ORDERED: Albuterol/Ipratropium NEB.SOL* Albuterol 2.5 MG/Ipratropium 0.5 MG 3 ML INH PRN (22:33)
[2018-12-02 22:34] LABS: Troponin I 0.07 ng/mL (<0.04)
[2018-12-02 22:40] LABS: Immature Granulocytes 8 % (0-9); Lymphocytes % 4 %; Metamyelocytes % 1 % (0-2); Monocytes % 6 %; Myelocytes % 1 % (0-1); Neutrophil % 82 %
[2018-12-02 22:41] LABS: Polychromasia 1+
[2018-12-02 22:43] LABS: ABS Basophils 0.1 10^3/ul (0-0.2); ABS Eosinophils 0 10^3/ul (0-0.6); ABS Lymphocytes 0.8 10^3/ul (1.0-4.8); ABS Monocytes 1.4 10^3/ul (0-0.8); ABS Nucleated RBC 0.1 10^3/ul; Nucleated Red Blood Cells % 0.2
[2018-12-02] MEDS ORDERED: Torsemide TAB* 20 MG PO PRN (23:44)
[2018-12-02] MEDS ORDERED: Vancomycin(*) 0 MG in NS 0.9% 250 ML* 250 ML IVPB SCH (23:45)
[2018-12-03 00:23] LABS: Magnesium 2.7 mg/dL (1.9-2.7); Phosphorus 6.7 mg/dL (2.5-5.0)
[2018-12-03] MEDS: Ipratropium 0.5MG/2.5ML NEB* 0.5 MG/2.5 ML NEB.SOLN INH SCH ×2 (00:50→08:14)
[2018-12-03] MEDS: Levalbuterol 1.25MG/0.5ML NEB INH SCH ×4 (00:50→11:14)
[2018-12-03 01:07] LABS: Troponin I 0.08 ng/mL (<0.04)
--- NOTE | 2018-12-03 02:05 | HP ---
CC: Dr. Heredia * HISTORY AND PHYSICAL: DATE OF ADMISSION: 12/02/18. TIME OF ADMISSION: 11:00 p.m. CHIEF COMPLAINT: Respiratory distress. HISTORY OF PRESENT ILLNESS: This is a 57-year-old male with history of COPD and atrial fibrillation who presents to the emergency department with shortness of breath. The history is obtained from the ED nursing and physician records and verbal sign out because the patient was intubated during his ED course. They report that when he arrived to the emergency department, he was only able to speak in one-word sentences. He had just been discharged from the [place] ED several hours prior and diagnosed with COPD exacerbation. Upon arrival to our emergency department, he became unresponsive and was intubated. In the ED, he has received ketamine 200 mg, vancomycin 1250 mg, 1 L of normal saline, Solu-Medrol 125 mg and cefepime 2 g. EMS gave him 2 mg of magnesium and 2 DuoNebs. PAST MEDICAL HISTORY: 1. COPD, on p.r.n. 2 L nasal cannula. 2. History of sick sinus syndrome with a pacemaker. 3. Ulcerative colitis, status post bowel resection and colostomy. 4. Atrial fibrillation, he has had 2 ablations that have been unsuccessful. 5. Hypertension. 6. History of HCV that has been treated. 7. YAMEL, on CPAP. PAST SURGICAL HISTORY: He had a colostomy. HOME MEDICATIONS: Please note that this list is obtained from his last discharge summary from [facility], he was last discharged on . 1. Umeclidinium 1 puff inhaled daily. 2. Furosemide/formoterol 2 inhalations b.i.d. 3. Rivaroxaban 20 mg daily. 4. Levalbuterol p.r.n. 5. KCl 10 mEq daily. 6. Tylenol 650 mg q.4 p.r.n. 7. Gabapentin 100 mg, the dose is unclear. 8. Magnesium oxide 400 mg b.i.d. 9. Sotalol 80 mg b.i.d. 10. Diltiazem XT 240 mg daily. 11. Torsemide 20 mg daily p.r.n. 12. Metoprolol succinate 100 mg b.i.d. REVIEW OF SYSTEMS: Unable to be obtained due to the patient being intubated. PHYSICAL EXAMINATION GENERAL: Intubated sedated man who is resting comfortably and breathing in sync with the vent. VITAL SIGNS: Temperature 97.2, heart rate 72, respiratory rate 20, pulse ox 99 % on 50% FiO2, and blood pressure 101/79. HEENT: Pupils are 3 mm bilaterally and react equally to light. His oral mucosa is dry. An OG tube is in place. NECK: I cannot appreciate JVP. He has no adenopathy. LUNGS: Coarse breath sounds. CHEST: Regular rate and rhythm. No murmurs. ABDOMEN: Distended, soft, with a colostomy in the right lower quadrant with brown stool. A Yancey catheter is in place. EXTREMITIES: No edema, rashes or ulcers. NEUROLOGIC: He withdraws to painful stimuli. He does not respond to voice. DIAGNOSTIC STUDIES/LAB DATA: White blood cells 23.4, hemoglobin 11.6, platelets 261,000. He has 6% bands. INR 1.1. Blood gas 7.2/85/122. Sodium 136, potassium 4.3, chloride 97, bicarb 29, BUN 26, creatinine 1.24, glucose 174 , lactic acid 1.4. Troponin 0.07, CRP 10.07, BNP 438. Flu swabs are negative. Chest x-ray, I note a possible right lower lobe infiltrate. There is no pneumothorax. No effusions and the heart is normal size. EKG: Sinus tach, normal axis. Normal intervals. T-wave inversions in II, III and aVF. ST depressions in V4 and V5. ASSESSMENT AND PLAN: This is a 57-year-old man with history of atrial fibrillation and chronic obstructive pulmonary disease who presents to the emergency department in respiratory distress. He was intubated in the emergency department and is now sedated and being admitted to the ICU. 1. Neurologic: He is currently sedated on propofol. Based on the limited neurologic exam, he is responding appropriately given his sedated state. We will aim for a RASS of -3 on the propofol while he is intubated. 2. Respiratory: His diagnoses include vent dependent respiratory failure, acute hypercapnic respiratory failure and acute on chronic hypoxic respiratory failure. I suspect this is related to a chronic obstructive pulmonary disease exacerbation plus/minus pneumonia. I am putting him on steroids, nebulizers, cefepime and vancomycin given his recent hospitalizations, continuing Solu- Medrol and Xopenex as well as ipratropium. 3. Cardiac: He has a long history of difficult to control atrial fibrillation , but he is actually in sinus rhythm at this time. It appears the sotalol that was added several admissions ago has been helping. I will continue the sotalol, Cardizem and metoprolol. He is also anticoagulated with Xarelto. His troponin is mildly elevated, but I suspect this is demand in the setting of respiratory distress. We will continue to trend his troponins. 4. Infectious Diseases: Again, I am treating him for healthcare associated pneumonia with vancomycin and cefepime. We will check sputum cultures and blood cultures and urinary antigens. 5. Gastrointestinal: An ostomy is noted, straining normal stool and an OG tube is in place. His meds will be via the OG tube and will start tube feeds if he is unable to be extubated soon. 6. Urinary: A Yancey catheter is in place. His urine output has been poor so far in the emergency department, so I started him on more IV fluids. He has an acute kidney injury. 7. Heme. He is already on therapeutic anticoagulation. His platelets are normal. [id number]/[facility] #: [id number] ELIUD
[2018-12-03] MEDS ORDERED: Vancomycin per Pharmacy* NOTE FOLLOW UP PRN (02:15)
[2018-12-03] MEDS: Propofol* 100 ML IV SCH ×3 (03:01→10:49)
[2018-12-03] MEDS: NS 0.9% 1000 ML** 1,000 ML IV SCH ×3 (03:01→13:04)
[2018-12-03] MEDS: methylPREDNISolone SOD 40 MG* 1 ML VIAL IV SCH ×3 (06:08→21:03)
[2018-12-03 06:15] LABS: Hematocrit 33 % (36-46); Hemoglobin 10.7 g/dL (14.0-18.0); Mean Corpuscular HGB Conc 32 g/dL (31-36); Mean Corpuscular Hemoglobin 32 pg (27-31); Mean Corpuscular Volume 99 fL (80-94); Mean Platelet Volume 7.8 fL (7.4-10.4); Platelet Count 183 10^3/uL (150-450); Red Blood Count 3.36 10^6 /uL (4.18-5.48); Red Cell Distribution Width 17 % (10.5-15); White Blood Count 21.7 10^3/uL (3.5-10.8)
[2018-12-03 06:17] LABS: ABS Neutrophils 20.4 10^3/ul (1.5-7.7)
[2018-12-03 06:26] LABS: INR 1.01 (0.77-1.02)
[2018-12-03] MEDS: Digoxin IV* 0.5 MG/2 ML AMP (0.25 MG/ML) IV SLOW PU PRN (06:27)
[2018-12-03 06:35] LABS: ALT 118 U/L (7-52); AST 76 U/L (13-39); Albumin 3.4 g/dL (3.2-5.2); Albumin/Globulin Ratio 1.7 (1-3); Alkaline Phosphatase 84 U/L (34-104); Anion Gap 8 mmol/L (2-11); BUN/Creatinine Ratio 24.3 (8-20); Blood Urea Nitrogen 28 mg/dL (6-24); CO2 Carbon Dioxide 27 mmol/L (22-32); Calcium 8.1 mg/dL (8.6-10.3); Chloride 101 mmol/L (101-111); EGFR African American 79.3 (>60); EGFR Non-African American 65.5 (>60); Glucose 135 mg/dL (70-100); Indirect Bilirubin 0.4 mg/dL (0.3-1.0); Potassium 4.5 mmol/L (3.5-5.0); Sodium 136 mmol/L (135-145); Total Protein 5.4 g/dL (6.4-8.9)
[2018-12-03 06:39] LABS: Troponin I 0.07 ng/mL (<0.04)
[2018-12-03 07:32] LABS: ABS Basophils 0.1 10^3/ul (0-0.2); ABS Eosinophils 0 10^3/ul (0-0.6); ABS Lymphocytes 0.4 10^3/ul (1.0-4.8); ABS Monocytes 0.8 10^3/ul (0-0.8); ABS Nucleated RBC 0 10^3/ul; Eosinophil % 0 %; Lymphocyte % 1.7 %; Nucleated Red Blood Cells % 0
[2018-12-03] MEDS: Sotalol TAB* 80 MG PO SCH ×2 (09:24→21:02)
[2018-12-03] MEDS: Metoprolol Succinate XL TAB* 100 MG PO SCH ×2 (09:24→21:03)
[2018-12-03] MEDS: Magnesium Oxide TAB* 400 MG PO SCH ×2 (09:25→21:02)
[2018-12-03] MEDS: Rivaroxaban TAB(*) 20 MG TAB PO SCH (09:25)
[2018-12-03] MEDS: Diltiazem CD CAP* 240 MG PO SCH (09:25)
[2018-12-03] MEDS: Vancomycin(*) 1,250 MG in NS 0.9% 250 ML* 250 ML IVPB SCH (10:52)
[2018-12-03] MEDS ORDERED: Albuterol/Ipratropium NEB.SOL* Albuterol 2.5 MG/Ipratropium 0.5 MG 3 ML ONE (11:15)
[2018-12-03] MEDS: Albuterol/Ipratropium NEB.SOL* Albuterol 2.5 MG/Ipratropium 0.5 MG 3 ML INH SCH ×5 (11:24→23:19)
--- NOTE | 2018-12-03 12:31 | CONSULT ---
Consult Consult: Consultation Note -- Critical Care Requesting Physician: Dr Escalante Reason for consult: pneumonia, hypoxic respiratory fialure Limitations in history/physical: intubated/sedated Date of consult: 12/03/2018 HPI: 57y M w/pmhx of COPD, Chronic Afib with ablations/difficult to control, COPD on 2L NC as needed, poor compliance, h/o SSS s/p PPM, UC s/p bowel resection, HTN, YAMEL on CPAP; noted to have recurrent admission to [facility] and outside hospitals for COPD exaccerbation, recently at [facility] oct 2018 and early November 2018 for similar episodes. Apparently patient was just admitted to [facility] for COPD exaccerbation and discharged 12/03. HE was sent home, and within hours developed acute respiratory distress, diaphoretic, EMS noted labored respirations with sats in 90s, in ER he had difficulty speaking and then becoming slowly lethargic. Intubated in ER for increased work of breathing and distress. LAbs demonstrated elevated WBC 23, acute on chronic hypercapnea with CO2 85, mild renal insuff, negative LA He was tachycardic to 140 in ER. CXR demonstrated hyperinflated lung key with similar appearing RLL infiltrates as priro CXRs currently he is sedated/intubated ROS: LImited ROS due to intubated state; history from chart and med record PMHx: COPD, Chronic Afib with ablations/difficult to control, COPD on 2L NC as needed, poor compliance, h/o SSS s/p PPM, UC s/p bowel resection, HTN, YAMEL on CPAP PSHx: colostomy in past Family History: HTN, respiratory problems Social History: Alcohol-heavy before but occassional now, Smoking-former smoker , Drug use-none Allergies: Allergies Allergy/AdvReac Type Severity Reaction Status Date / Time ciprofloxacin Allergy Itching Verified 09/20/18 09:07 Home Medications: Budesonide/Formote 80/4.5(NF) [Symbicort 80/4.5 (NF)] 2 inh INH BID 07/20/18 [ History Confirmed 11/21/18] Rivaroxaban TAB(*) [Xarelto 20 mg] 20 mg PO DAILY 07/20/18 [History Confirmed ] Umeclidinium [place] [Incruse Ellipta] 1 inh INH DAILY 07/20/18 [History Confirmed 11/21/18] Levalbuterol Tartrate [Levalbuterol Tartrate Hfa] 1 - 2 puff PO Q6H PRN [History Confirmed 11/21/18] Potassium Chloride [Klor-Con M10] 10 meq PO DAILY 09/07/18 [History Confirmed ] Acetaminophen TAB* [Tylenol TAB*] 650 mg PO Q4H PRN tab 09/17/18 [Rx Confirmed 11/21/18] Gabapentin CAP(*) [Neurontin 100 mg CAP(*)] 1 - 3 cap PO BEDTIME PRN 09/20/18 [ History Confirmed 11/21/18] Magnesium Oxide TAB* [MagOx 400 TAB*] 400 mg PO BID 11/03/18 [History Confirmed 11/21/18] Cartia Xt 240 mg PO DAILY #0 11/13/18 [Rx Confirmed 11/21/18] Sotalol TAB* [Betapace 80 MG TAB*] 80 mg PO BID #28 tab 11/13/18 [Rx Confirmed 11/21/18] Torsemide TAB* [Demadex 20 MG*] 20 mg PO DAILY PRN #14 11/13/18 [Rx Confirmed ] Metoprolol Succinate XL TAB* [Toprol XL TAB*] 100 mg PO BID 11/21/18 [History Confirmed 11/21/18] ceFUROXime TAB(*) [Ceftin TAB 250 MG(*)] 500 mg PO BID #10 tab 11/23/18 [Rx] predniSONE TAB* [Deltasone 10 MG TAB*] 10 mg PO DAILY #10 tab 11/23/18 [Rx] Tele: NSR Vitals: Vital Signs Temp 98.4 F 12/03/18 11:01 Pulse 66 12/03/18 11:28 Resp 19 12/03/18 11:28 BP 92/61 12/03/18 11:00 Pulse Ox 100 12/03/18 11:28 Intake & Output 12/02/18 12/03/18 12/03/18 18:59 06:59 18:59 Intake Total 1213 Output Total 381 250 Balance 832 -250 Weight 70.4 kg Intake: IV Fluids 1089 ABX - VANCOMYCIN 250 NS (0.9%) 839 Medicated IV 94 propofol 94 NG Tube Irrigate Amount 30 Output: Yancey 231 250 Colostomy 150 O2/Vent: AC 18/450/+5/40% Infusions: propofol, NS 75 Current Medications: Albuterol/Ipratropium (Duoneb (Albuterol 2.5 Mg/Ipratropium 0.5 Mg)) 1 neb INH [id number] AWAKE [facility] Digoxin (Digoxin Iv*) 0.125 mg IV SLOW PU ONCE PRN PRN Reason: HEART RATE/PULSE GREATER THAN: Last Admin: 12/03/18 06:27 Dose: 0.125 mg Diltiazem HCl (Cardizem Cd Cap*) 240 mg PO DAILY [facility] Last Admin: 12/03/18 09:25 Dose: 240 mg Propofol (Diprivan*) 100 mls @ 8.709 mls/hr IV .(Initial Rate) [facility]; Protocol Last Admin: 12/03/18 10:49 Dose: 17.3 mls/hr Cefepime HCl (Maxipime 2 Gm In Dextrose Duplex (*)) 2 gm in 50 mls @ 100 mls/ hr IV Q24H [facility] Sodium Chloride (Ns 0.9% 1000 Ml) 1,000 mls @ 75 mls/hr IV PER RATE [facility] Vancomycin HCl 1,000 mg/ (Sodium Chloride) 250 mls @ 166.667 mls/hr IVPB Q12H [facility] Magnesium Oxide (Magox 400 Tab*) 400 mg PO BID [facility] Last Admin: 12/03/18 09:25 Dose: 400 mg Methylprednisolone Sodium Succinate (Solu-Medrol 40 Mg) 40 mg IV Q8H [facility] Last Admin: 12/03/18 06:08 Dose: 40 mg Metoprolol Succinate (Toprol Xl Tab*) 100 mg PO BID [facility] Last Admin: 12/03/18 09:24 Dose: 100 mg Pharmacy Consult (Vancomycin Per Pharmacy*) 1 note FOLLOW UP . PRN PRN Reason: PER PROTOCOL Pharmacy Profile Note (Vancomycin Trough Check) 1 note FOLLOW UP 1000 ONE Stop: 12/04/18 10:01 Rivaroxaban (Xarelto(*)) 20 mg PO DAILY [facility] Last Admin: 12/03/18 09:25 Dose: 20 mg Sotalol HCl (Betapace Tab*) 80 mg PO BID [facility] Last Admin: 12/03/18 09:24 Dose: 80 mg Physical Exam: Constitutional: intubated, sedated, no distress Head: normocephalic, atraumatic Eyes: no pallor, no icterus ENT: moist mucous membranes Neck: soft, supple, no jvd CVS: normal rate, slightly irreg, no murmur Resp: bilateral air entry, biailteral rhonchi and wheeze++, no acc muscle use Abdomen/GI: soft, nondistended, BS+ Ext/Msk: warm, pulses+, no edema Skin: intact, warm Neuro: sedated, pupils reactive bialterally; difficult neuro exam to assess alert, orientedx3, moving all extremities, no gross focal deficit Labs: Laboratory Results - last 24 hr 12/02/18 12/02/18 12/02/18 21:26 22:03 22:03 WBC 23.4 H RBC 3.65 L Hgb 11.6 L Hct 36 MCV 98 H MCH 32 H MCHC 32 RDW 16 H Plt Count 261 MPV 7.9 Neut % (Auto) Not Reportable Lymph % (Auto) Not Reportable Yell % (Auto) Not Reportable Eos % (Auto) Not Reportable Baso % (Auto) Not Reportable Absolute Neuts (auto) 21.0 H Absolute Lymphs (auto) 0.8 L Absolute Monos (auto) 1.4 H Absolute Eos (auto) 0 Absolute Basos (auto) 0.1 Absolute Nucleated RBC 0.1 Immature Gran % 8 Neutrophils % 82 Band Neutrophils % 6 Lymphocytes % 4 Monocytes % 6 Metamyelocytes % 1 Myelocytes % 1 Nucleated RBC % 0.2 Normal RBC Morphology Not Reportable Polychromasia 1+ Anisocytosis 1+ Macrocytosis 1+ INR (Anticoag Therapy) Patient Temperature ABG pH 7.20 L ABG pH (Temp Correct) ABG pCO2 85 H* ABG pCO2 (Temp Corrct ABG pO2 122 H ABG pO2 (Temp Correct ABG HCO3 26.8 ABG O2 Saturation 98.7 H ABG Base Excess 2.4 H Respiration Rate O2 Delivery Device Ventilator Type Vent Mode FiO2 Inspiratory Time PEEP Pressure Support Pressure Control EPAP IPAP BiPAP Sodium 136 Potassium 4.3 Chloride 97 L Carbon Dioxide 29 Anion Gap 10 BUN 26 H Creatinine 1.24 H Est GFR ( Amer) 72.7 Est GFR (Non-Af Amer) 60.1 BUN/Creatinine Ratio 21.0 H Glucose 174 H Lactic Acid Calcium 8.4 L Phosphorus 6.7 H Magnesium 2.7 Total Bilirubin 0.40 Direct Bilirubin Indirect Bilirubin AST 83 H ALT 127 H Alkaline Phosphatase 95 Troponin I 0.07 H* C-Reactive Protein 10.07 H B-Natriuretic Peptide Total Protein 5.9 L Albumin 3.7 Globulin 2.2 Albumin/Globulin Ratio 1.7 Influenza A (Rapid) Influenza B (Rapid) 12/02/18 12/02/18 12/02/18 22:03 22:03 22:03 WBC RBC Hgb Hct MCV MCH MCHC RDW Plt Count MPV Neut % (Auto) Lymph % (Auto) Yell % (Auto) Eos % (Auto) Baso % (Auto) Absolute Neuts (auto) Absolute Lymphs (auto) Absolute Monos (auto) Absolute Eos (auto) Absolute Basos (auto) Absolute Nucleated RBC Immature Gran % Neutrophils % Band Neutrophils % Lymphocytes % Monocytes % Metamyelocytes % Myelocytes % Nucleated RBC % Normal RBC Morphology Polychromasia Anisocytosis Macrocytosis INR (Anticoag Therapy) 1.12 H Patient Temperature ABG pH ABG pH (Temp Correct) ABG pCO2 ABG pCO2 (Temp Corrct ABG pO2 ABG pO2 (Temp Correct ABG HCO3 ABG O2 Saturation ABG Base Excess Respiration Rate O2 Delivery Device Ventilator Type Vent Mode FiO2 Inspiratory Time PEEP Pressure Support Pressure Control EPAP IPAP BiPAP Sodium Potassium Chloride Carbon Dioxide Anion Gap BUN Creatinine Est GFR ( Amer) Est GFR (Non-Af Amer) BUN/Creatinine Ratio Glucose Lactic Acid 1.4 Calcium Phosphorus Magnesium Total Bilirubin Direct Bilirubin Indirect Bilirubin AST ALT Alkaline Phosphatase Troponin I C-Reactive Protein B-Natriuretic Peptide 438 H Total Protein Albumin Globulin Albumin/Globulin Ratio Influenza A (Rapid) Influenza B (Rapid) 12/02/18 12/03/18 12/03/18 22:04 00:38 06:04 WBC RBC Hgb Hct MCV MCH MCHC RDW Plt Count MPV Neut % (Auto) Lymph % (Auto) Yell % (Auto) Eos % (Auto) Baso % (Auto) Absolute Neuts (auto) Absolute Lymphs (auto) Absolute Monos (auto) Absolute Eos (auto) Absolute Basos (auto) Absolute Nucleated RBC Immature Gran % Neutrophils % Band Neutrophils % Lymphocytes % Monocytes % Metamyelocytes % Myelocytes % Nucleated RBC % Normal RBC Morphology Polychromasia Anisocytosis Macrocytosis INR (Anticoag Therapy) Patient Temperature ABG pH ABG pH (Temp Correct) ABG pCO2 ABG pCO2 (Temp Corrct ABG pO2 ABG pO2 (Temp Correct ABG HCO3 ABG O2 Saturation ABG Base Excess Respiration Rate O2 Delivery Device Ventilator Type Vent Mode FiO2 Inspiratory Time PEEP Pressure Support Pressure Control EPAP IPAP BiPAP Sodium 136 Potassium 4.5 Chloride 101 Carbon Dioxide 27 Anion Gap 8 BUN 28 H Creatinine 1.15 Est GFR ( Amer) 79.3 Est GFR (Non-Af Amer) 65.5 BUN/Creatinine Ratio 24.3 H Glucose 135 H Lactic Acid Calcium 8.1 L Phosphorus Magnesium Total Bilirubin 0.50 Direct Bilirubin 0.10 Indirect Bilirubin 0.4 AST 76 H ALT 118 H Alkaline Phosphatase 84 Troponin I 0.08 H* 0.07 H* C-Reactive Protein B-Natriuretic Peptide Total Protein 5.4 L Albumin 3.4 Globulin 2.0 Albumin/Globulin Ratio 1.7 Influenza A (Rapid) Negative Influenza B (Rapid) Negative 12/03/18 12/03/18 12/03/18 06:04 06:04 06:04 WBC 21.7 H RBC 3.36 L Hgb 10.7 L Hct 33 L MCV 99 H MCH 32 H MCHC 32 RDW 17 H Plt Count 183 MPV 7.8 Neut % (Auto) 94.2 Lymph % (Auto) 1.7 Yell % (Auto) 3.6 Eos % (Auto) 0 Baso % (Auto) 0.5 Absolute Neuts (auto) 20.4 H Absolute Lymphs (auto) 0.4 L Absolute Monos (auto) 0.8 Absolute Eos (auto) 0 Absolute Basos (auto) 0.1 Absolute Nucleated RBC 0 Immature Gran % Neutrophils % Band Neutrophils % Lymphocytes % Monocytes % Metamyelocytes % Myelocytes % Nucleated RBC % 0 Normal RBC Morphology Polychromasia Anisocytosis Macrocytosis INR (Anticoag Therapy) 1.01 Patient Temperature ABG pH ABG pH (Temp Correct) ABG pCO2 ABG pCO2 (Temp Corrct ABG pO2 ABG pO2 (Temp Correct ABG HCO3 ABG O2 Saturation ABG Base Excess Respiration Rate O2 Delivery Device Ventilator Type Vent Mode FiO2 Inspiratory Time PEEP Pressure Support Pressure Control EPAP IPAP BiPAP Sodium Potassium Chloride Carbon Dioxide Anion Gap BUN Creatinine Est GFR ( Amer) Est GFR (Non-Af Amer) BUN/Creatinine Ratio Glucose Lactic Acid 1.9 Calcium Phosphorus Magnesium Total Bilirubin Direct Bilirubin Indirect Bilirubin AST ALT Alkaline Phosphatase Troponin I C-Reactive Protein B-Natriuretic Peptide Total Protein Albumin Globulin Albumin/Globulin Ratio Influenza A (Rapid) Influenza B (Rapid) 12/03/18 08:50 WBC RBC Hgb Hct MCV MCH MCHC RDW Plt Count MPV Neut % (Auto) Lymph % (Auto) Yell % (Auto) Eos % (Auto) Baso % (Auto) Absolute Neuts (auto) Absolute Lymphs (auto) Absolute Monos (auto) Absolute Eos (auto) Absolute Basos (auto) Absolute Nucleated RBC Immature Gran % Neutrophils % Band Neutrophils % Lymphocytes % Monocytes % Metamyelocytes % Myelocytes % Nucleated RBC % Normal RBC Morphology Polychromasia Anisocytosis Macrocytosis INR (Anticoag Therapy) Patient Temperature Not Reportable ABG pH 7.37 ABG pH (Temp Correct) Not Reportable ABG pCO2 48 H ABG pCO2 (Temp Corrct Not Reportable ABG pO2 132 H ABG pO2 (Temp Correct Not Reportable ABG HCO3 26.3 ABG O2 Saturation 100.0 H ABG Base Excess 1.7 Respiration Rate 18 O2 Delivery Device vent Ventilator Type 450 Vent Mode cmv FiO2 40 Inspiratory Time .6 PEEP 5 Pressure Support Not Reportable Pressure Control Not Reportable EPAP Not Reportable IPAP Not Reportable BiPAP Not Reportable Sodium Potassium Chloride Carbon Dioxide Anion Gap BUN Creatinine Est GFR ( Amer) Est GFR (Non-Af Amer) BUN/Creatinine Ratio Glucose Lactic Acid Calcium Phosphorus Magnesium Total Bilirubin Direct Bilirubin Indirect Bilirubin AST ALT Alkaline Phosphatase Troponin I C-Reactive Protein B-Natriuretic Peptide Total Protein Albumin Globulin Albumin/Globulin Ratio Influenza A (Rapid) Influenza B (Rapid) Imaging: cxr 12/02 - hyperinflated; ?RLL infiltrate; similar as priro cxr 12/03 - haziness right lung field Assessment: 57y M w/pmhx of COPD, Chronic Afib with ablations/difficult to control, COPD on 2L NC as needed, poor compliance, h/o SSS s/p PPM, UC s/p bowel resection, HTN, YAMEL on CPAP; noted to have recurrent admission to [facility] and outside hospitals for COPD exaccerbation, recently at [facility] oct 2018 and early November 2018 for similar episodes. Apparently patient was just admitted to [facility] for COPD exaccerbation and discharged 12/03. HE was sent home, and within hours developed acute respiratory distress, diaphoretic, EMS noted labored respirations with sats in 90s, in ER he had difficulty speaking and then becoming slowly lethargic. Intubated in ER for increased work of breathing and distress. -Acute on chronic hypercapneic and hypoxic respiratory failure; intubated 12/02 -Acute COPD exaccerbation -Suspected RLL pneumonia -r/o severe sepsis -ISABEL Afib SSS s/p PPM YAMEL on CPAP Plan: Neuro- on propofol for sedation. maintain today. daily sedation vacation. neuro checks. asp prec. delirium prec CVS- -BP stable 90-100s; cont NS infusion. hold diuretics today, re-eval tomorrow. -h/o difficult to control Afib; cont Cardizem, metoprolol, sotalol -cont rivaroxaban for Afib AC -no evidence of peripheral edema; hold diuretics today -making urine Resp- -acute on chronic hypercap and hypoxic resp failure; intubated 12/02 -diffuse wheezing++; cont solumedrol 40mg iv q8h -cont bronchodilators duoneb q4h rtc -hold diuretics for now -RLL infiltrate on CXr similar as prior; low suspicion for pneumonia but will await sputum culture; check CXR tomorrow -cont HCAP abx -HOB elevated, asp prec; pulm toilet ID- afebrile. wbc 23->21; now started on steroids for COPD -CXR hyperinflated, RLL ?infiltrates -recent hospital admissions; covering for HCAP tx GI- start jevity 1.2 @ 20cc/hr via OGT. -asp prec. HOB elevated -start GI proph with h2b BID (on steroids and resp failure) Renal- ISABEL; Cr lower; suspect pre-renal component -K okay, no acidosis -making urine -cont NS 75cc/hr today -may need lasix tomorrow, re-eval later today Heme- hg stable, plt stable -cont rivaroxaban for Afib C Endo- Maintain BG<200, insulin protocol as needed Musculsk- pressure ulcer prophylaxis. Bedrest. Wounds- none Nutrition- jevity TF DVT prophylaxis: SCD, rivaroxaban GI prophylaxis: h2b Central Line: no Arterial Line: no Yancey Cathetor: yes Disposition: Patient requires Critical Care/ICU for acute on chr hypercap and hypoxic resp failure, copd exacc Patient Clinical Status: guarded, critical Code Status: full code Total Critical Care time is 45 minutes, excluding procedures/teaching Dylan Correa MD Animal Technician (Electronically Signed)
[2018-12-03] MEDS: Cefepime 2 GM in Dextrose(*) 2 GM/50 ML BAG IV SCH (21:00)
[2018-12-03] MEDS: Famotidine TAB* 20 MG PO SCH (21:03)
[2018-12-03] MEDS ORDERED: Vancomycin(*) 1,250 MG in NS 0.9% 250 ML* 250 ML IVPB SCH (22:00)
[2018-12-03] MEDS ORDERED: Vancomycin(*) 1,000 MG in NS 0.9% 250 ML* 250 ML IVPB SCH (22:00)
[2018-12-04] MEDS: Vancomycin(*) 1,250 MG in NS 0.9% 250 ML* 250 ML IVPB SCH (00:09)
[2018-12-04] MEDS: Propofol* 100 ML IV SCH ×4 (00:10→08:35)
[2018-12-04] MEDS: Albuterol/Ipratropium NEB.SOL* Albuterol 2.5 MG/Ipratropium 0.5 MG 3 ML INH SCH ×7 (02:53→23:17)
[2018-12-04] MEDS: NS 0.9% 1000 ML** 1,000 ML IV SCH (04:47)
[2018-12-04] MEDS: methylPREDNISolone SOD 40 MG* 1 ML VIAL IV SCH ×3 (05:28→20:51)
[2018-12-04 06:27] LABS: Hematocrit 30 % (36-46); Hemoglobin 9.7 g/dL (14.0-18.0); Mean Corpuscular HGB Conc 33 g/dL (31-36); Mean Corpuscular Hemoglobin 32 pg (27-31); Mean Corpuscular Volume 99 fL (80-94); Mean Platelet Volume 8.3 fL (7.4-10.4); Platelet Count 148 10^3/uL (150-450); Red Cell Distribution Width 16 % (10.5-15); White Blood Count 15.7 10^3/uL (3.5-10.8)
[2018-12-04 06:44] LABS: BUN/Creatinine Ratio 33.8 (8-20); Calcium 8.2 mg/dL (8.6-10.3); EGFR Non-African American 104.1 (>60); Magnesium 2.3 mg/dL (1.9-2.7); Phosphorus 3.3 mg/dL (2.5-5.0); Potassium 4.4 mmol/L (3.5-5.0)
[2018-12-04] MEDS: Rivaroxaban TAB(*) 20 MG TAB PO SCH (08:34)
[2018-12-04] MEDS: Magnesium Oxide TAB* 400 MG PO SCH ×2 (08:34→20:51)
[2018-12-04] MEDS: Diltiazem CD CAP* 240 MG PO SCH (08:34)
[2018-12-04] MEDS: Sotalol TAB* 80 MG PO SCH ×2 (08:34→20:52)
[2018-12-04] MEDS: Famotidine TAB* 20 MG PO SCH ×2 (08:34→20:52)
[2018-12-04] MEDS: Metoprolol Succinate XL TAB* 100 MG PO SCH ×2 (08:35→20:34)
[2018-12-04] MEDS ORDERED: Artificial Tears* 15 ML BTL BOTH EYES PRN (09:24)
[2018-12-04] MEDS ORDERED: Vancomycin Trough Check NOTE FOLLOW UP ONE (10:00)
[2018-12-04] MEDS ORDERED: Furosemide IV* 10 MG/ML 2 ML VIAL (20 MG) IV ONE (10:27)
--- NOTE | 2018-12-04 13:44 | PN ---
Progress Note - Progress Note Date of Service: 12/04/18 Note: Progress Note -- Critical Care 24 hour events -intubated, no events overngiht -afebrile -wheezing improved -on lower propofol; follows commands -placed on CPAP now, doing well Tele: NSR Vitals: Vital Signs Temp 97.9 F 12/04/18 13:01 Pulse 64 12/04/18 13:01 Resp 18 12/04/18 11:02 BP 119/74 12/04/18 13:00 Pulse Ox 96 12/04/18 13:01 Intake & Output 12/03/18 12/04/18 12/04/18 18:59 06:59 18:59 Intake Total 1456 3422 362 Output Total 049 320 2531 Balance 931 2707 -1513 Weight 76.1 kg Intake: IV Fluids 1016 2738 NS (0.9%) 1016 2738 IVPB 285 ABX - VANCOMYCIN 285 Medicated IV 155 444 propofol 155 444 Tube Feeding 240 362 Output: Urine 255 Yancey 303 536 5765 Colostomy 90 400 Ileostomy 100 O2/Vent: CPAP 10/5 40% Infusions: propofol, NS 75 Current Medications: Albuterol/Ipratropium (Duoneb (Albuterol 2.5 Mg/Ipratropium 0.5 Mg)) 1 neb INH [id number] [facility]WA[facility] Last Admin: 12/04/18 11:01 Dose: 1 neb Digoxin (Digoxin Iv*) 0.125 mg IV SLOW PU ONCE PRN PRN Reason: HEART RATE/PULSE GREATER THAN: Last Admin: 12/03/18 06:27 Dose: 0.125 mg Diltiazem HCl (Cardizem Cd Cap*) 240 mg PO DAILY [facility] Last Admin: 12/04/18 08:34 Dose: 240 mg Famotidine (Pepcid Tab*) 20 mg PO BID [facility] Last Admin: 12/04/18 08:34 Dose: 20 mg Propofol (Diprivan*) 100 mls @ 8.709 mls/hr IV .(Initial Rate) [facility]; Protocol Last Admin: 12/04/18 08:35 Dose: 32.4 mls/hr Cefepime HCl (Maxipime 2 Gm In Dextrose Duplex (*)) 2 gm in 50 mls @ 100 mls/ hr IV Q24H [facility] Last Admin: 12/03/18 21:00 Dose: 100 mls/hr Magnesium Oxide (Magox 400 Tab*) 400 mg PO BID [facility] Last Admin: 12/04/18 08:34 Dose: 400 mg Methylprednisolone Sodium Succinate (Solu-Medrol 40 Mg) 40 mg IV Q8H [facility] Last Admin: 12/04/18 13:08 Dose: 40 mg Metoprolol Succinate (Toprol Xl Tab*) 100 mg PO BID [facility] Last Admin: 12/04/18 08:35 Dose: Not Given Polyvinyl Alcohol (Polyvinyl Alcohol 1.4% Opth*) 1 drop BOTH EYES Q4H PRN PRN Reason: SCLERAL EDEMA Last Admin: 12/04/18 11:15 Dose: 1 drop Rivaroxaban (Xarelto(*)) 20 mg PO DAILY [facility] Last Admin: 12/04/18 08:34 Dose: 20 mg Sotalol HCl (Betapace Tab*) 80 mg PO BID [facility] Last Admin: 12/04/18 08:34 Dose: 80 mg Physical Exam: Constitutional: intubated, follows commands, no distress Head: normocephalic, atraumatic Eyes: no pallor, no icterus ENT: moist mucous membranes Neck: soft, supple, no jvd CVS: normal rate, slightly irreg, no murmur Resp: bilateral air entry, minimal wheeze on right base, no rhales/rhonchi, no acc muscle use Abdomen/GI: soft, nondistended, BS+ Ext/Msk: warm, pulses+, no edema Skin: intact, warm Neuro: follows commands, moves all ext, intubated Labs: Laboratory Results - last 24 hr 12/03/18 12/04/18 12/04/18 13:06 05:53 06:10 WBC RBC Hgb Hct MCV MCH MCHC RDW Plt Count MPV Patient Temperature Not Reportable ABG pH 7.35 ABG pH (Temp Correct) Not Reportable ABG pCO2 49 H ABG pCO2 (Temp Corrct Not Reportable ABG pO2 134 H ABG pO2 (Temp Correct Not Reportable ABG HCO3 25.6 ABG O2 Saturation 99.5 H ABG Base Excess 0.8 Respiration Rate 18 O2 Delivery Device vent Ventilator Type 450 Vent Mode cmv FiO2 35 Inspiratory Time Not Reportable PEEP 5 Pressure Support Not Reportable Pressure Control Not Reportable EPAP Not Reportable IPAP Not Reportable BiPAP Not Reportable Sodium 137 Potassium 4.4 Chloride 107 Carbon Dioxide 27 Anion Gap 3 BUN 26 H Creatinine 0.77 Est GFR ( Amer) 126.0 Est GFR (Non-Af Amer) 104.1 BUN/Creatinine Ratio 33.8 H Glucose 190 H Lactic Acid 1.3 Calcium 8.2 L Phosphorus 3.3 Magnesium 2.3 B-Natriuretic Peptide Vancomycin Trough 23.0 12/04/18 12/04/18 12/04/18 06:10 06:10 10:35 WBC 15.7 H RBC 3.00 L Hgb 9.7 L Hct 30 L MCV 99 H MCH 32 H MCHC 33 RDW 16 H Plt Count 148 L MPV 8.3 Patient Temperature ABG pH ABG pH (Temp Correct) ABG pCO2 ABG pCO2 (Temp Corrct ABG pO2 ABG pO2 (Temp Correct ABG HCO3 ABG O2 Saturation ABG Base Excess Respiration Rate O2 Delivery Device Ventilator Type Vent Mode FiO2 Inspiratory Time PEEP Pressure Support Pressure Control EPAP IPAP BiPAP Sodium Potassium Chloride Carbon Dioxide Anion Gap BUN Creatinine Est GFR ( Amer) Est GFR (Non-Af Amer) BUN/Creatinine Ratio Glucose Lactic Acid Calcium Phosphorus Magnesium B-Natriuretic Peptide 296 H Vancomycin Trough 15.1 Imaging: cxr 12/02 - hyperinflated; ?[facility] infiltrate; [facility] - haziness right lung field Assessment: 57y M w/pmhx of COPD, Chronic Afib with ablations/difficult to control, COPD on 2L NC as needed, poor compliance, h/o SSS s/p PPM, UC s/p bowel resection, HTN, YAMEL on CPAP; noted to have recurrent admission to [facility] and outside hospitals for COPD exaccerbation, recently at [facility] oct 2018 and early November 2018 for similar episodes. Apparently patient was just admitted to [facility] for COPD exaccerbation and discharged 12/03. HE was sent home, and within hours developed acute respiratory distress, diaphoretic, EMS noted labored respirations with sats in 90s, in ER he had difficulty speaking and then becoming slowly lethargic. Intubated in ER for increased work of breathing and distress. -Acute on chronic hypercapneic and hypoxic respiratory failure; intubated 12/02 -Acute COPD exaccerbation -Suspected RLL pneumonia -r/o severe sepsis -ISABEL Afib SSS s/p PPM YAMEL on CPAP Plan: Neuro- on propofol for sedation, follows commands. daily sedation vacation. neuro checks. asp prec. delirium prec CVS- -BP stable 90-100s; d/c NS infusion; lasix 20mg IV x1 -h/o difficult to control Afib; cont Cardizem, metoprolol, sotalol -cont rivaroxaban for Afib AC -making urine Resp- -acute on chronic hypercap and hypoxic resp failure; intubated 12/02 -wheezing improved; cont solumedrol 40mg iv q8h, start taper tomorrow -cont bronchodilators duoneb q4h rtc -lasix 20mg IV x1; off IVF now -CXr 12/04 - mild right congestion -cont HCAP abx -HOB elevated, asp prec; pulm toilet ID- afebrile. wbc 15; on steroids for COPD -CXR hyperinflated, RLL ?infiltrates -recent hospital admissions; covering for HCAP tx; cont cefepime (day#2), vanco level 15; nontoxic signs, wbc improved; d/c vanco, send sputum GI- d/c feeds -asp prec. HOB elevated - GI proph with h2b BID (on steroids and resp failure) Renal- ISABEL; Cr improved -K okay, no acidosis -making urine -d/c IVF; lasix 20mg IV x1 Heme- hg down to 9-10, was 10-11? concentrated before? all counts down, check tomorrow, non bleeding noted anywhere -cont rivaroxaban for Afib C Endo- Maintain BG<200, insulin protocol as needed Musculsk- pressure ulcer prophylaxis. Bedrest. Wounds- none Nutrition- off TF DVT prophylaxis: SCD, rivaroxaban GI prophylaxis: h2b Central Line: no Arterial Line: no Yancey Cathetor: yes Disposition: Patient requires Critical Care/ICU for acute on chr hypercap and hypoxic resp failure, copd exacc Patient Clinical Status: stable, critical Code Status: full code Total Critical Care time is 35 minutes, excluding procedures/teaching Dylan Correa MD Paper Goods Machine Operator (Electronically Signed)
[2018-12-04] MEDS: Cefepime 2 GM in Dextrose(*) 2 GM/50 ML BAG IV SCH (20:51)
[2018-12-04] MEDS ORDERED: Albuterol/Ipratropium NEB.SOL* Albuterol 2.5 MG/Ipratropium 0.5 MG 3 ML INH PRN (21:42)
[2018-12-04] MEDS ORDERED: Albuterol/Ipratropium NEB.SOL* Albuterol 2.5 MG/Ipratropium 0.5 MG 3 ML ONE (21:44)
[2018-12-05] MEDS ORDERED: Digoxin IV* 0.5 MG/2 ML AMP (0.25 MG/ML) ONE (03:37)
[2018-12-05] MEDS: Digoxin IV* 0.5 MG/2 ML AMP (0.25 MG/ML) IV SLOW PU PRN (03:39)
[2018-12-05] MEDS: Albuterol/Ipratropium NEB.SOL* Albuterol 2.5 MG/Ipratropium 0.5 MG 3 ML INH SCH ×6 (03:49→23:41)
[2018-12-05] MEDS ORDERED: Sotalol TAB* 80 MG PO ONE (04:22)
[2018-12-05] MEDS: methylPREDNISolone SOD 40 MG* 1 ML VIAL IV SCH ×3 (04:29→21:42)
[2018-12-05 04:30] LABS: Hematocrit 31 % (36-46); Hemoglobin 9.9 g/dL (14.0-18.0); Mean Corpuscular HGB Conc 32 g/dL (31-36); Mean Corpuscular Hemoglobin 31 pg (27-31); Mean Corpuscular Volume 99 fL (80-94); Mean Platelet Volume 8.2 fL (7.4-10.4); Platelet Count 144 10^3/uL (150-450); Red Blood Count 3.15 10^6 /uL (4.18-5.48); Red Cell Distribution Width 16 % (10.5-15); White Blood Count 18.1 10^3/uL (3.5-10.8)
[2018-12-05 04:46] LABS: BUN/Creatinine Ratio 39.4 (8-20); Calcium 8.8 mg/dL (8.6-10.3); EGFR African American 138.4 (>60); EGFR Non-African American 114.4 (>60); Potassium 4.7 mmol/L (3.5-5.0)
[2018-12-05] MEDS: Magnesium Oxide TAB* 400 MG PO SCH ×2 (08:17→21:41)
[2018-12-05] MEDS: Famotidine TAB* 20 MG PO SCH ×2 (08:17→21:41)
[2018-12-05] MEDS: Sotalol TAB* 80 MG PO SCH ×2 (08:17→21:41)
[2018-12-05] MEDS: Rivaroxaban TAB(*) 20 MG TAB PO SCH (08:17)
[2018-12-05] MEDS: Metoprolol Succinate XL TAB* 100 MG PO SCH ×2 (08:17→21:41)
[2018-12-05] MEDS: Diltiazem CD CAP* 240 MG PO SCH (08:17)
[2018-12-05] MEDS ORDERED: Gabapentin CAP(*) 100 MG PO PRN (09:04)
[2018-12-05] MEDS: Vancomycin(*) 1,250 MG in NS 0.9% 250 ML* 250 ML IVPB SCH (09:23)
--- NOTE | 2018-12-05 11:19 | PN ---
Progress Note - Progress Note Date of Service: 12/05/18 Note: Progress Note -- Critical Care 24 hour events -extubated yesterday, no distress, afebrile -on NC 4 L; speaking but sometimes pauses to catch breath -cough+, minimal sputum -BP stable, HR stable -in chair now, eating well, no abd pain/n/v -no cp Tele: NSR Vitals: Vital Signs Temp 98.1 F 12/05/18 11:02 Pulse 60 12/05/18 11:02 Resp 20 12/05/18 11:08 BP 135/71 12/05/18 11:02 Pulse Ox 100 12/05/18 11:02 Intake & Output 12/04/18 12/05/18 12/05/18 18:59 06:59 18:59 Intake Total 6041 653 4835 Output Total 2555 925 290 Balance -1446 -623 990 Weight 75 kg Intake: IVPB 327 52 NS (0.9%) 327 52 Medicated IV 180 propofol 180 Oral 942 283 1761 Tube Feeding 362 Output: Yancey 2055 625 240 Liquid Stool 300 Colostomy 400 50 Ileostomy 100 O2/Vent: NC 4 L Infusions: heplock Current Medications: Albuterol/Ipratropium (Duoneb (Albuterol 2.5 Mg/Ipratropium 0.5 Mg)) 1 neb INH [id number] AWAKE [facility] Last Admin: 12/05/18 10:55 Dose: 1 neb Albuterol/Ipratropium (Duoneb (Albuterol 2.5 Mg/Ipratropium 0.5 Mg)) 1 neb INH Q4H PRN PRN Reason: SOB/WHEEZING Last Admin: 12/04/18 21:45 Dose: 1 neb Diltiazem HCl (Cardizem Cd Cap*) 240 mg PO DAILY [facility] Last Admin: 12/05/18 08:17 Dose: 240 mg Famotidine (Pepcid Tab*) 20 mg PO BID [facility] Last Admin: 12/05/18 08:17 Dose: 20 mg Gabapentin (Neurontin Cap(*)) 100 mg PO BEDTIME PRN PRN Reason: PAIN Cefepime HCl (Maxipime 2 Gm In Dextrose Duplex (*)) 2 gm in 50 mls @ 100 mls/ hr IV Q24H [facility] Last Admin: 12/04/18 20:51 Dose: 100 mls/hr Magnesium Oxide (Magox 400 Tab*) 400 mg PO BID [facility] Last Admin: 12/05/18 08:17 Dose: 400 mg Methylprednisolone Sodium Succinate (Solu-Medrol 40 Mg) 40 mg IV Q12H [facility] Metoprolol Succinate (Toprol Xl Tab*) 100 mg PO BID [facility] Last Admin: 12/05/18 08:17 Dose: 100 mg Mometasone Furoate/Formoterol Fumar (Dulera 100/5 Mdi*) 2 puff INH BID [facility] Polyvinyl Alcohol (Polyvinyl Alcohol 1.4% Opth*) 1 drop BOTH EYES Q4H PRN PRN Reason: SCLERAL EDEMA Last Admin: 12/04/18 11:15 Dose: 1 drop Rivaroxaban (Xarelto(*)) 20 mg PO DAILY [facility] Last Admin: 12/05/18 08:17 Dose: 20 mg Sotalol HCl (Betapace Tab*) 80 mg PO BID [facility] Last Admin: 12/05/18 08:17 Dose: 80 mg Umeclidinium [place] (Incruse Ellipta Mdi (Nf)) 1 inh INH DAILY [facility] Physical Exam: Constitutional: awake, alert, no distress Head: normocephalic, atraumatic Eyes: no pallor, no icterus ENT: moist mucous membranes Neck: soft, supple, no jvd CVS: normal rate, slightly irreg, no murmur Resp: bilateral air entry, no wheeze, no rhales/rhonchi, no acc muscle use Abdomen/GI: soft, nondistended, BS+ Ext/Msk: warm, pulses+, no edema Skin: intact, warm Neuro: awake, alert, oriented x3, moving all ext, pupils reactive Labs: Laboratory Results - last 24 hr 12/05/18 12/05/18 04:22 04:22 WBC 18.1 H RBC 3.15 L Hgb 9.9 L Hct 31 L MCV 99 H MCH 31 MCHC 32 RDW 16 H Plt Count 144 L MPV 8.2 Sodium 138 Potassium 4.7 Chloride 105 Carbon Dioxide 29 Anion Gap 4 BUN 28 H Creatinine 0.71 Est GFR ( Amer) 138.4 Est GFR (Non-Af Amer) 114.4 BUN/Creatinine Ratio 39.4 H Glucose 136 H Calcium 8.8 Imaging: cxr 12/02 - hyperinflated; ?RLL infiltrate; similar as priro cxr 12/03 - haziness right lung field Assessment: 57y M w/pmhx of COPD, Chronic Afib with ablations/difficult to control, COPD on 2L NC as needed, poor compliance, h/o SSS s/p PPM, UC s/p bowel resection, HTN, YAMEL on CPAP; noted to have recurrent admission to [facility] [place] [place] and outside hospitals for COPD exaccerbation, recently at [facility] [place] [place] oct 2018 and early November 2018 for similar episodes. Apparently patient was just admitted to [facility] for COPD exaccerbation and discharged 12/03. HE was sent home, and within hours developed acute respiratory distress, diaphoretic, EMS noted labored respirations with sats in 90s, in ER he had difficulty speaking and then becoming slowly lethargic. Intubated in ER for increased work of breathing and distress. -Acute on chronic hypercapneic and hypoxic respiratory failure; intubated 12/02 -Acute COPD exaccerbation -Suspected RLL pneumonia -r/o severe sepsis -ISABEL Afib SSS s/p PPM YAMEL on CPAP Plan: Neuro- awake/alert; delirium prec CVS- -BP stable 90-100s -repeat lasix 20mg IV x1 today -restart Po lasix 20mg po daily tomorrow, re-eval daily -h/o difficult to control Afib; cont Cardizem, metoprolol, sotalol -cont rivaroxaban for Afib AC -making urine Resp- -acute on chronic hypercap and hypoxic resp failure; intubated 12/02; ext 12/04 -wheezing improved; dec solumedrol 40mg iv q12h; will need longer term taper given severe COPD and recurrent exaccerbations -cont bronchodilators duoneb q4h rtc -lasix 20mg IV x1 -CXr 12/04 - mild right congestion -cont HCAP abx -HOB elevated, asp prec; pulm toilet ID- afebrile. wbc 18; on steroids for COPD now which may raise wbc -CXR hyperinflated, RLL ?infiltrates, congestion 12/04 -recent hospital admissions; covering for HCAP tx; cont cefepime (day#3 of 5), off vanco, send sputum if able GI- po diet tolerating -asp prec. HOB elevated - GI proph with h2b BID (on steroids and resp failure) Renal- ISABEL; Cr improved -K okay, no acidosis -making urine - lasix 20mg IV x1 today, restart PO 20mg tomorrow Heme- hg 9-10, concentrated before? -cont rivaroxaban for Afib C Endo- Maintain BG<200, insulin protocol as needed Musculsk- pressure ulcer prophylaxis. oob to chair, ambulate as tolerated Wounds- none Nutrition- po diet DVT prophylaxis: SCD, rivaroxaban GI prophylaxis: h2b Central Line: no Arterial Line: no Yancey Cathetor: yes; d/c today Disposition: improved; can be transfered to medical floor, discussed with hospitalist service Patient Clinical Status: stable Code Status: full code Dylan Correa MD Sticker Hand (Electronically Signed)
[2018-12-05] MEDS: Mometasone/Formoter 100/5 MDI INH SCH (19:53)
[2018-12-05] MEDS: Cefepime 2 GM in Dextrose(*) 2 GM/50 ML BAG IV SCH (21:42)
[2018-12-06] MEDS: Albuterol/Ipratropium NEB.SOL* Albuterol 2.5 MG/Ipratropium 0.5 MG 3 ML INH SCH ×6 (03:40→23:22)
[2018-12-06] MEDS ORDERED: Morphine INJ* 2 MG/ML 1 ML SYRINGE (TWO MG - NEW SYRINGE VERSION) IV PRN (04:36)
--- NOTE | 2018-12-06 05:03 | PN ---
Hospitalist Progress Note Date of Service: 12/06/18 HOSPITALIST ADDENDUM Called by RN because patient was c/o chest pain and dyspnea. Wheezing on physical examination, improved after breathing treatment. EKG shows NSR at 60bpm with no acute ischemic changes. Check serial troponins and continue to monitor. Will give Morphine for pain.
[2018-12-06 06:04] LABS: Hematocrit 29 % (36-46); Hemoglobin 9.3 g/dL (14.0-18.0); Mean Corpuscular HGB Conc 32 g/dL (31-36); Mean Corpuscular Hemoglobin 31 pg (27-31); Mean Corpuscular Volume 97 fL (80-94); Mean Platelet Volume 7.5 fL (7.4-10.4); Platelet Count 127 10^3/uL (150-450); Red Blood Count 2.95 10^6 /uL (4.18-5.48); Red Cell Distribution Width 16 % (10.5-15); White Blood Count 13.3 10^3/uL (3.5-10.8)
[2018-12-06 06:26] LABS: BUN/Creatinine Ratio 37.8 (8-20); Blood Urea Nitrogen 31 mg/dL (6-24); CO2 Carbon Dioxide 34 mmol/L (22-32); Chloride 103 mmol/L (101-111); EGFR African American 117.2 (>60); EGFR Non-African American 96.8 (>60); Glucose 149 mg/dL (70-100); Sodium 137 mmol/L (135-145)
[2018-12-06 06:27] LABS: Potassium 5.2 mmol/L (3.5-5.0)
[2018-12-06] MEDS: Tiotropium CAP.INH* CAP.INH/18 MCG (USE ORDER SET !) INH SCH (07:20)
[2018-12-06] MEDS: Mometasone/Formoter 100/5 MDI INH SCH ×2 (07:21→19:54)
[2018-12-06] MEDS: Magnesium Oxide TAB* 400 MG PO SCH ×2 (08:12→20:58)
[2018-12-06] MEDS: Rivaroxaban TAB(*) 20 MG TAB PO SCH (08:12)
[2018-12-06] MEDS: Diltiazem CD CAP* 240 MG PO SCH (08:12)
[2018-12-06] MEDS: Metoprolol Succinate XL TAB* 100 MG PO SCH ×2 (08:12→20:58)
[2018-12-06] MEDS: Furosemide TAB* 20 MG PO SCH (08:12)
[2018-12-06] MEDS: Famotidine TAB* 20 MG PO SCH ×2 (08:12→20:58)
[2018-12-06] MEDS ORDERED: Spiriva Inhaler DEVICE* 1 EACH DEVICE INH ONE (09:00)
[2018-12-06] MEDS ORDERED: Umeclidinium 62.5 MDI(NF) MDI INH SCH (09:00)
[2018-12-06] MEDS: Sotalol TAB* 80 MG PO SCH ×2 (09:05→20:58)
[2018-12-06] MEDS: methylPREDNISolone SOD 40 MG* 1 ML VIAL IV SCH ×2 (09:05→20:55)
[2018-12-06] MEDS: Cefepime 2 GM in Dextrose(*) 2 GM/50 ML BAG IV SCH (20:54)
--- NOTE | 2018-12-06 21:09 | PN ---
Subjective Interval History: From ICU yesterday. Pt feels better, in terms of respiratory symptoms, but is reporting a chest tightness since overnight. Troponins (x3) and EKG not concerning for coronary artery disease. Pt reports it could be the lung tightness he feels in exacerbations. He doesn't think there is anything that could help keep him out of the hospital , except a lung transplant. Objective Active Medications: Albuterol/Ipratropium (Duoneb (Albuterol 2.5 Mg/Ipratropium 0.5 Mg)) 1 neb INH [id number] AWAKE [facility] Last Admin: 12/06/18 19:54 Dose: 1 neb Albuterol/Ipratropium (Duoneb (Albuterol 2.5 Mg/Ipratropium 0.5 Mg)) 1 neb INH Q4H PRN PRN Reason: SOB/WHEEZING Last Admin: 12/04/18 21:45 Dose: 1 neb Diltiazem HCl (Cardizem Cd Cap*) 240 mg PO DAILY [facility] Last Admin: 12/06/18 08:12 Dose: 240 mg Famotidine (Pepcid Tab*) 20 mg PO BID [facility] Last Admin: 12/06/18 20:58 Dose: 20 mg Furosemide (Lasix Tab*) 20 mg PO DAILY [facility] Last Admin: 12/06/18 08:12 Dose: 20 mg Gabapentin (Neurontin Cap(*)) 100 mg PO BEDTIME PRN PRN Reason: PAIN Cefepime HCl (Maxipime 2 Gm In Dextrose Duplex (*)) 2 gm in 50 mls @ 100 mls/ hr IV Q24H [facility] Last Admin: 12/06/18 20:54 Dose: 100 mls/hr Magnesium Oxide (Magox 400 Tab*) 400 mg PO BID [facility] Last Admin: 12/06/18 20:58 Dose: 400 mg Methylprednisolone Sodium Succinate (Solu-Medrol 40 Mg) 40 mg IV Q12H [facility] Last Admin: 12/06/18 20:55 Dose: 40 mg Metoprolol Succinate (Toprol Xl Tab*) 100 mg PO BID [facility] [place] Last Admin: 12/06/18 20:58 Dose: 100 mg Mometasone Furoate/Formoterol Fumar (Dulera 100/5 Mdi*) 2 puff INH BID [facility] Last Admin: 03/18/19 19:54 Dose: 2 puff Morphine Sulfate (Morphine Inj ((Syringe))*) 1 mg IV Q3H PRN PRN Reason: SEVERE PAIN Last Admin: 12/06/18 04:52 Dose: 1 mg Polyvinyl Alcohol (Polyvinyl Alcohol 1.4% Opth*) 1 drop BOTH EYES Q4H PRN PRN Reason: SCLERAL EDEMA Last Admin: 12/04/18 11:15 Dose: 1 drop Rivaroxaban (Xarelto(*)) 20 mg PO DAILY [facility] Last Admin: 12/06/18 08:12 Dose: 20 mg Sotalol HCl (Betapace Tab*) 80 mg PO BID [facility] Last Admin: 12/06/18 20:58 Dose: 80 mg Tiotropium [place] (Spiriva Cap.Inh*) 1 cap INH DAILY [facility] Last Admin: 12/06/18 07:20 Dose: 1 cap Vital Signs - 8 hr 12/06/18 12/06/18 12/06/18 15:12 16:02 19:50 Temperature 97.9 F 97.9 F Pulse Rate 60 63 60 Respiratory 17 18 24 Rate Blood Pressure 136/68 139/78 (mmHg) O2 Sat by Pulse 98 98 99 Oximetry 12/06/18 19:55 Temperature Pulse Rate 61 Respiratory 20 Rate Blood Pressure (mmHg) O2 Sat by Pulse 99 Oximetry Oxygen Devices in Use Now: Nasal Cannula Appearance: sitting at edge of bed chatting with roommate in full sentences Respiratory: - - diffuse expiratory wheeze, impaired air movement moderately Cardiovascular: RRR Abdominal: NL Sounds; No Tenderness; No Distention Extremities: No Edema Result Diagrams: 12/06/18 05:50 12/06/18 05:50 Microbiology and Other Data: Microbiology 12/02/18 22:05 Aerobic Blood Culture - Preliminary Blood Venous No Growth Day 3 12/02/18 22:03 Aerobic Blood Culture - Preliminary Blood Venous No Growth Day 3 12/03/18 06:07 Legionella Urinary Antigen - Final Urine Negative Legionella Antigen Streptococcus pneumoniae Ag Screen - Final Negative S. pneumo Antigen 12/02/18 20:55 Influenza Types A,B Antigen - Final Nasal Specimen received for Influenza A/B Molecular testing Assess/Plan/Problems-Billing Assessment: 57M with COPD on home O2 prn, afib s/p failed ablations, SSS s/p PPM, UC s/p bowel resection, HTN, YAMEL on CPAP, presenting immediately after discharge from outside hospital for persistent COPD exacerbation, required intubation for COPD exacerbation in ER and now s/p ext 12/04. - Patient Problems (1) Acute and chronic respiratory failure with hypoxia Comment: - cont nebs prn - cont IV steroids (12/02 - ) - cont cefepime (12/02), f/u procalcitonin - cont nightly BiPAP (usualy on CPAP for Yamel) - cont Dulera, Spiriva standing - cont morphine prn dyspnea - pending pulm recs (2) Atrial fibrillation Comment: -Continue Metoprolol, Sotalol, Diltiazem, and Rivaroxaban (3) Anemia, macrocytic Comment: TSH recently ordered. f/u B12/MMA Status and Disposition: Inpatient medicine floors pending return of O2 requirements to baseline. Will need a prolonged steroid taper.
[2018-12-07] MEDS: Albuterol/Ipratropium NEB.SOL* Albuterol 2.5 MG/Ipratropium 0.5 MG 3 ML INH SCH ×4 (04:04→14:50)
[2018-12-07 07:21] LABS: Hematocrit 31 % (36-46); Mean Corpuscular HGB Conc 33 g/dL (31-36); Mean Corpuscular Hemoglobin 31 pg (27-31); Mean Corpuscular Volume 96 fL (80-94); Mean Platelet Volume 7.9 fL (7.4-10.4); Platelet Count 138 10^3/uL (150-450); Red Blood Count 3.18 10^6 /uL (4.18-5.48); Red Cell Distribution Width 16 % (10.5-15); White Blood Count 15.1 10^3/uL (3.5-10.8)
[2018-12-07] MEDS: Mometasone/Formoter 100/5 MDI INH SCH ×2 (07:23→19:50)
[2018-12-07 07:28] LABS: BUN/Creatinine Ratio 40.8 (8-20); Calcium 9.5 mg/dL (8.6-10.3); EGFR African American 138.4 (>60); EGFR Non-African American 114.4 (>60)
[2018-12-07 07:35] LABS: Potassium 5.1 mmol/L (3.5-5.0)
[2018-12-07] MEDS: Metoprolol Succinate XL TAB* 100 MG PO SCH ×2 (08:35→21:07)
[2018-12-07] MEDS: Sotalol TAB* 80 MG PO SCH ×2 (08:35→21:07)
[2018-12-07] MEDS: Diltiazem CD CAP* 240 MG PO SCH (08:35)
[2018-12-07] MEDS: Rivaroxaban TAB(*) 20 MG TAB PO SCH (08:35)
[2018-12-07] MEDS: methylPREDNISolone SOD 40 MG* 1 ML VIAL IV SCH ×2 (08:35→21:02)
[2018-12-07] MEDS: Famotidine TAB* 20 MG PO SCH ×2 (08:35→21:07)
[2018-12-07] MEDS: Magnesium Oxide TAB* 400 MG PO SCH ×2 (08:35→21:07)
[2018-12-07] MEDS: Furosemide TAB* 20 MG PO SCH (08:35)
[2018-12-07] MEDS: Tiotropium CAP.INH* CAP.INH/18 MCG (USE ORDER SET !) INH SCH (10:55)
[2018-12-07] MEDS: guaiFENesin ER TAB 600 MG PO SCH ×2 (14:13→21:07)
--- NOTE | 2018-12-07 15:15 | CONS ---
PULMONARY CONSULTATION REPORT: DATE OF CONSULT: 12/07/18 CONSULTATION REQUESTED BY: Fernanda Villarreal MD. REASON FOR CONSULTATION: Evaluation of COPD exacerbation. HISTORY OF PRESENT ILLNESS: The patient is a 57-year-old male with a history of severe COPD, atrial fibrillation with recurrent episodes of rapid ventricular rate, known to me from prior outpatient and inpatient evaluations. The patient presents for evaluation of worsening shortness of breath. The patient reports that he has been out in the cold weather recently fishing. He started having significant trouble breathing and presented to the emergency room in [place]. He was given 4 nebulizers and was discharged from the ED there. His breathing has significantly worsened and he came into the [facility] Emergency Room. He was found to be in significant distress and was also altered and could not protect his airway. He was intubated for altered mental status secondary to acute hypercapnic respiratory failure. The patient was extubated successfully 2 days later and was transitioned down to the regular floor. The patient reports still having episodes of chest tightness and inability to get a deep breath. He has been wheezing. Bronchodilators provide benefit, however, still has significant distress. He is in mild distress at the time of exam, able to complete full sentences. Reports having cough, however, reports inability to expectorate the phlegm. Denies fevers or chills. His AFib is not in rapid ventricular response at this time. He was started on bronchodilators, on broad spectrum antibiotics given recent healthcare exposure for patient's pneumonia and IV Solu-Medrol. PAST MEDICAL HISTORY: 1. COPD, on 2 L at home. 2. Sick sinus syndrome with pacemaker. 3. Atrial fibrillation, ablations x2 in the past, unsuccessful. 4. Hypertension. 5. Ulcerative colitis status post bowel resection and colostomy. 6. Hepatitis C virus. 7. YAMEL, on CPAP. PAST SURGICAL HISTORY: Colostomy. MEDICATIONS: 1. Umeclidinium. 2. Furosemide. 3. Formoterol. 4. Rivaroxaban. 5. Levalbuterol. 6. Potassium chloride. 7. Tylenol. 8. Gabapentin. 9. Magnesium oxide. 10. Sotalol. 11. Diltiazem. 12. Torsemide. 13. Metoprolol. ALLERGIES: CIPROFLOXACIN. SOCIAL HISTORY: Former smoker with significant smoking history, quit 2 years ago. Has quit drinking in the recent past. No drug abuse. FAMILY HISTORY: Mother in a motor vehicle accident. Dad in [place] War. REVIEW OF SYSTEMS: All 14 systems reviewed and as per HPI. The patient denies recent allergies, reports fatigue and generalized malaise. The patient denies urinary or abdominal symptoms. The patient denies swollen lymph nodes, headaches. PHYSICAL EXAM: The patient is sitting up in bed in mild distress with some increased work of breathing. HEENT: Pupils equal and reactive to light. Mucous membranes moist. Lungs: Diminished air entry. Wheeze on auscultation bilaterally. Cardiovascular: S1, S2 present, irregular. Abdomen: Obese. Bowel sounds present. Nontender, nondistended. Extremities: Normal range of motion. No edema. Skin: No rash or bruise. Neuro: Alert, awake, oriented x3. No focal deficits. LABORATORY WORKUP: WBC count 15.1, decreased from 23.4 on admission, hemoglobin of 10, hematocrit of 31, platelet count of 138. Blood gas analysis on admission showed respiratory acidosis with pCO2 of 85, pH of 7.2. Last blood gases prior to liberation from mechanical ventilation showed compensated respiratory acidosis. Sodium 136, potassium 5.1, chloride 99, bicarb 33, BUN 29, creatinine 0.7. Troponins x3 within normal limits. Influenza A and B negative. Strep pneumo and legionella antigens negative. Blood cultures are negative to date. Sputum cultures could not be obtained. IMAGING: Chest x-ray on admission was personally reviewed by me, evidence of hyperinflation with no focal airspace opacities. Evidence of mild interstitial pulmonary edema. IMPRESSION AND RECOMMENDATIONS: 57-year-old male with history of severe COPD, O2 dependence, and chronic hypercapnic respiratory failure, on home Trilogy, admitted with worsening shortness of breath. 1. Acute chronic obstructive pulmonary disease exacerbation secondary to bronchitis. 2. Elevated white count secondary to pneumonia and being on prednisone. 3. Possible pneumonia. 4. Evidence of fluid overload. The patient with slow improvement, still has significant dyspnea on auscultation. He is currently on 40 mg q.12 of Solu-Medrol. Would not taper it given significant wheezing on auscultation. He also has thick phlegm that he is unable to expectorate. Provided the patient with flutter device, instructed on technique of usage of the device. Also ordered Mucinex for mobilization of secretions. Continue with long-acting bronchodilators. He is also receiving morphine as needed for the relief of dyspnea. He has not been able to use his BiPAP while here. His friend will be bringing his machine to him today. Thank you for allowing me to participate in the care of your patient. Will follow up with you. [id number]/[facility] #: [id number] ELIUD
--- NOTE | 2018-12-07 17:48 | PN ---
Subjective Interval History: Subjectively improved chest tightness and dyspnea. Evaluated by Pulm - recommending to maintain on IV steroids for now. Added guaifenesin in order to thin sputum. Objective Active Medications: Albuterol (Ventolin 2.5 Mg/3 Ml Neb.Leona*) 2.5 mg INH Q2H PRN PRN Reason: SOB/WHEEZING Diltiazem HCl (Cardizem Cd Cap*) 240 mg PO DAILY [facility] Last Admin: 12/07/18 08:35 Dose: 240 mg Famotidine (Pepcid Tab*) 20 mg PO BID [facility] Last Admin: 12/07/18 08:35 Dose: 20 mg Furosemide (Lasix Tab*) 20 mg PO DAILY [facility] Last Admin: 12/07/18 08:35 Dose: 20 mg Gabapentin (Neurontin Cap(*)) 100 mg PO BEDTIME PRN PRN Reason: PAIN Guaifenesin (Mucinex*) 600 mg PO BID [facility] Last Admin: 12/07/18 14:13 Dose: 600 mg Cefepime HCl (Maxipime 2 Gm In Dextrose Duplex (*)) 2 gm in 50 mls @ 100 mls/ hr IV Q24H [facility] Last Admin: 12/06/18 20:54 Dose: 100 mls/hr Magnesium Oxide (Magox 400 Tab*) 400 mg PO BID [facility] Last Admin: 12/07/18 08:35 Dose: 400 mg Methylprednisolone Sodium Succinate (Solu-Medrol 40 Mg) 40 mg IV Q12H [facility] Last Admin: 12/07/18 08:35 Dose: 40 mg Metoprolol Succinate (Toprol Xl Tab*) 100 mg PO BID [facility] Last Admin: 12/07/18 08:35 Dose: 100 mg Mometasone Furoate/Formoterol Fumar (Dulera 100/5 Mdi*) 2 puff INH BID [facility] Last Admin: 12/07/18 07:23 Dose: 2 puff Morphine Sulfate (Morphine Inj ((Syringe))*) 1 mg IV Q3H PRN PRN Reason: SEVERE PAIN Last Admin: 12/06/18 04:52 Dose: 1 mg Polyvinyl Alcohol (Polyvinyl Alcohol 1.4% Opth*) 1 drop BOTH EYES Q4H PRN PRN Reason: SCLERAL EDEMA Last Admin: 12/04/18 11:15 Dose: 1 drop Rivaroxaban (Xarelto(*)) 20 mg PO DAILY [facility] Last Admin: 12/07/18 08:35 Dose: 20 mg Sotalol HCl (Betapace Tab*) 80 mg PO BID [facility] Last Admin: 12/07/18 08:35 Dose: 80 mg Tiotropium [place] (Spiriva Cap.Inh*) 1 cap INH DAILY [facility] Last Admin: 12/07/18 10:55 Dose: 1 cap Vital Signs - 8 hr 12/07/18 12/07/18 12/07/18 10:56 11:15 15:00 Temperature 98.0 F Pulse Rate 60 59 69 Respiratory 18 18 18 Rate Blood Pressure 122/66 (mmHg) O2 Sat by Pulse 100 97 100 Oximetry Oxygen Devices in Use Now: Nasal Cannula Respiratory: - - diffuse expiratory wheeze Cardiovascular: - - regular rate and rhythm; radial pulses regular Result Diagrams: 12/07/18 06:34 12/07/18 06:34 Microbiology and Other Data: Microbiology 12/02/18 22:05 Aerobic Blood Culture - Preliminary Blood Venous No Growth Day 3 12/02/18 22:03 Aerobic Blood Culture - Preliminary Blood Venous No Growth Day 3 12/03/18 06:07 Legionella Urinary Antigen - Final Urine Negative Legionella Antigen Streptococcus pneumoniae Ag Screen - Final Negative S. pneumo Antigen 12/02/18 20:55 Influenza Types A,B Antigen - Final Nasal Specimen received for Influenza A/B Molecular testing Assess/Plan/Problems-Billing Assessment: 57M with COPD on home O2 prn, afib s/p failed ablations, SSS s/p PPM, UC s/p bowel resection, HTN, YAMEL on CPAP, presenting immediately after discharge from outside hospital for persistent COPD exacerbation, required intubation in ER and now s/p ext 12/04. On cefepime pending clinical improvement. - Patient Problems (1) Acute and chronic respiratory failure with hypoxia Comment: - cont albuterol nebs prn - cont IV steroids (12/02 - ) - cont cefepime (12/02 - ), f/u procalcitonin - cont nightly BiPAP (previously on CPAP for YAMEL) - cont Dulera, Spiriva standing - cont morphine prn dyspnea - appreciate Dr. Joan aponte (2) Atrial fibrillation Comment: -Continue Metoprolol, Sotalol, Diltiazem, and Rivaroxaban (3) Anemia, macrocytic Comment: TSH/B12 normal. Status and Disposition: Inpatient medicine floors pending return of O2 requirements to baseline. Will need a prolonged steroid taper - currently IV.
[2018-12-07] MEDS: Albuterol 2.5 MG/3 ML NEB.SOL* (0.083%) INH PRN (19:50)
[2018-12-07] MEDS: Cefepime 2 GM in Dextrose(*) 2 GM/50 ML BAG IV SCH (21:02)
[2018-12-07] MEDS: Albuterol 2.5 MG/3 ML NEB.SOL* (0.083%) INH SCH (22:55)
[2018-12-08] MEDS: Albuterol 2.5 MG/3 ML NEB.SOL* (0.083%) INH SCH ×4 (03:15→15:03)
[2018-12-08 06:42] LABS: Hematocrit 30 % (36-46); Hemoglobin 9.7 g/dL (14.0-18.0); Mean Corpuscular HGB Conc 33 g/dL (31-36); Mean Corpuscular Hemoglobin 32 pg (27-31); Mean Corpuscular Volume 97 fL (80-94); Mean Platelet Volume 7.6 fL (7.4-10.4); Platelet Count 131 10^3/uL (150-450); Red Blood Count 3.06 10^6 /uL (4.18-5.48); Red Cell Distribution Width 16 % (10.5-15); White Blood Count 16.6 10^3/uL (3.5-10.8)
[2018-12-08 07:08] LABS: BUN/Creatinine Ratio 39.7 (8-20); Calcium 9.1 mg/dL (8.6-10.3); EGFR Non-African American 110.7 (>60); Potassium 4.7 mmol/L (3.5-5.0)
[2018-12-08 07:34] LABS: Folate 11.28 ng/mL (>3.99)
[2018-12-08] MEDS: Furosemide TAB* 20 MG PO SCH (07:34)
[2018-12-08] MEDS: Diltiazem CD CAP* 240 MG PO SCH (07:34)
[2018-12-08] MEDS: Magnesium Oxide TAB* 400 MG PO SCH ×2 (07:34→21:24)
[2018-12-08] MEDS: Famotidine TAB* 20 MG PO SCH ×2 (07:34→21:24)
[2018-12-08] MEDS: guaiFENesin ER TAB 600 MG PO SCH ×2 (07:34→21:24)
[2018-12-08] MEDS: Metoprolol Succinate XL TAB* 100 MG PO SCH ×2 (07:34→21:24)
[2018-12-08] MEDS: Rivaroxaban TAB(*) 20 MG TAB PO SCH (07:34)
[2018-12-08] MEDS: Sotalol TAB* 80 MG PO SCH ×2 (07:34→21:24)
[2018-12-08] MEDS: Tiotropium CAP.INH* CAP.INH/18 MCG (USE ORDER SET !) INH SCH (07:42)
[2018-12-08] MEDS: Mometasone/Formoter 100/5 MDI INH SCH ×2 (07:42→19:21)
[2018-12-08 08:21] LABS: ABS Basophils 0 10^3/ul (0-0.2); ABS Eosinophils 0 10^3/ul (0-0.6); ABS Lymphocytes 0.3 10^3/ul (1.0-4.8); ABS Monocytes 1.3 10^3/ul (0-0.8)
[2018-12-08 08:26] LABS: Lymphocytes % 1 %; Metamyelocytes % 2 % (0-2); Monocytes % 5 %; Neutrophil % 83 %
[2018-12-08 08:28] LABS: Immature Granulocytes 11 % (0-9); Myelocytes % 1 % (0-1)
[2018-12-08 08:30] LABS: ABS Neutrophils 15.6 10^3/ul (1.5-7.7)
[2018-12-08] MEDS: methylPREDNISolone SOD 40 MG* 1 ML VIAL IV SCH (08:56)
[2018-12-08 16:43] LABS: Procalcitonin, S 0.22 ng/mL (<=0.15)
[2018-12-08] MEDS ORDERED: Furosemide IV* 10 MG/ML 2 ML VIAL (20 MG) IV ONE (17:06)
--- NOTE | 2018-12-08 17:06 | PN ---
Progress Note - Progress Note Date of Service: 12/08/18 - Pulm f/u note Note: Pt seen and examined at bedside. Reports feeling slightly better, getting winded with activity. O2 requirement has improved. Used BiPAP and has been able to expectorate phleghm Active Medications Generic Name Dose Route Start Last Admin Trade Name Freq PRN Reason Stop Dose Admin Albuterol 2.5 mg 12/07/18 17:44 12/07/18 19:50 Ventolin 2.5 Mg/3 Ml Neb.Leona* INH 2.5 mg Q2H PRN Administration SOB/WHEEZING Albuterol 2.5 mg 12/07/18 23:00 12/08/18 15:03 Ventolin 2.5 Mg/3 Ml Neb.Leona* INH 2.5 mg Q4H JUSTIN Administration Diltiazem HCl 240 mg 12/03/18 09:00 12/08/18 07:34 Cardizem Cd Cap* PO 240 mg DAILY JUSTIN Administration Famotidine 20 mg 12/03/18 21:00 12/08/18 07:34 Pepcid Tab* PO 20 mg BID JUSTIN Administration Furosemide 20 mg 12/06/18 09:00 12/08/18 07:34 Lasix Tab* PO 20 mg DAILY JUSTIN Administration Gabapentin 100 mg 12/05/18 09:04 Neurontin Cap(*) PO BEDTIME PRN PAIN Guaifenesin 600 mg 12/07/18 13:00 12/08/18 07:34 Mucinex* PO 600 mg BID JUSTIN Administration Cefepime HCl 2 gm in 50 mls @ 100 mls/hr 12/03/18 21:00 12/07/18 21:02 Maxipime 2 Gm In Dextrose Duplex (*) IV 100 mls/hr Q24H JUSTIN Administration Magnesium Oxide 400 mg 12/03/18 09:00 12/08/18 07:34 Magox 400 Tab* PO 400 mg BID JUSTIN Administration Melatonin 3 mg 12/08/18 14:06 Melatonin PO BEDTIME PRN SLEEP Methylprednisolone Sodium Succinate 40 mg 12/05/18 10:00 12/08/18 08:56 Solu-Medrol 40 Mg IV 40 mg Q12H JUSTIN Administration Metoprolol Succinate 100 mg 12/03/18 09:00 12/08/18 07:34 Toprol Xl Tab* PO 100 mg BID JUSTIN Administration Mometasone Furoate/Formoterol Fumar 2 puff 12/05/18 21:00 12/08/18 07:42 Dulera 100/5 Mdi* INH 2 puff BID JUSTIN Administration Morphine Sulfate 1 mg 12/06/18 04:36 12/06/18 04:52 Morphine Inj ((Syringe))* IV 1 mg Q3H PRN Administration SEVERE PAIN Polyvinyl Alcohol 1 drop 12/04/18 09:24 12/04/18 11:15 Polyvinyl Alcohol 1.4% Opth* BOTH EYES 1 drop Q4H PRN Administration SCLERAL EDEMA Rivaroxaban 20 mg 12/03/18 09:00 12/08/18 07:34 Xarelto(*) PO 20 mg DAILY JUSTIN Administration Sotalol HCl 80 mg 12/03/18 09:00 12/08/18 07:34 Betapace Tab* PO 80 mg BID JUSTIN Administration Tiotropium [place] 1 cap 12/06/18 09:00 12/08/18 07:42 Spiriva Cap.Inh* INH 1 cap DAILY JUSTIN Administration Vital Signs Temp Pulse Resp BP Pulse Ox 98.0 F 63 18 140/85 98 12/08/18 07:15 12/08/18 15:06 12/08/18 15:06 12/08/18 07:15 12/08/18 15:06 O/E: Pt in NAD HEENT: PERRLA Lungs: Diminished air entry, wheeze+ CVS: S1, S@+ Abd: Soft, BS+ Ext: Edema+ Skin: No rash Neuro: Alert, awake, no focal deficits Laboratory Results - last 24 hr 12/07/18 12/08/18 12/08/18 06:34 06:30 06:30 WBC 16.6 H RBC 3.06 L Hgb 9.7 L Hct 30 L MCV 97 H MCH 32 H MCHC 33 RDW 16 H Plt Count 131 L MPV 7.6 Neut % (Auto) Not Reportable Lymph % (Auto) Not Reportable [place] % (Auto) Not Reportable Eos % (Auto) Not Reportable Baso % (Auto) Not Reportable Absolute Neuts (auto) 15.0 H Absolute Lymphs (auto) 0.3 L Absolute Monos (auto) 1.3 H Absolute Eos (auto) 0 Absolute Basos (auto) 0 Absolute Nucleated RBC Not Reportable Immature Gran % 11 H Neutrophils % 83 Band Neutrophils % 8 Lymphocytes % 1 Monocytes % 5 Metamyelocytes % 2 Myelocytes % 1 Nucleated RBC % Not Reportable Abs Neuts (Manual) 15.6 H Abs Lymphs (Manual) 0.2 L Abs Monocytes (Manual) 0.8 Normal RBC Morphology Normal Sodium 136 Potassium 4.7 Chloride 99 L Carbon Dioxide 31 Anion Gap 6 BUN 29 H Creatinine 0.73 Est GFR ( Amer) 134.0 Est GFR (Non-Af Amer) 110.7 BUN/Creatinine Ratio 39.7 H Glucose 128 H Calcium 9.1 Magnesium 2.0 Folate 11.28 Procalcitonin 0.22 H I/R: 57M with COPD on home O2 prn, afib s/p failed ablations, SSS s/p PPM, UC s /p bowel resection, HTN, YAMEL on CPAP, presenting immediately after discharge from outside hospital for persistent COPD exacerbation, required intubation s/p ext 12/04. Pt being treated for acute COPD exacerbation likelty sec to viral bronchitis/ PNA and hypercapnic and hypoxic resp fdailure Pt improving albeit slowly On cefepime for HCAP Has significant edema of LE and wt gain Will order additional dose of Laisx Using BiPAP and its helping Able to expectorate secretions, will c/w flutter device Will start steroid taper from tomorrow if seems to improve Not in A.fib RVR OOB to chair, ambulate as tolerated c/w bronchodilators
--- NOTE | 2018-12-08 18:21 | PN ---
Subjective Interval History: Pt reports he didn't use BiPAP overnight because the settings weren't correct for him - states he has no one to get his BiPAP machine from his home to bring in. Increase LE edema - Dr. Franco ordered furosemide IV (take torsemide prn at home ). Remains on IV abx and steroids. Will start PO steroids tomorrow with close monitoring of respiratory symptoms. Objective Active Medications: Albuterol (Ventolin 2.5 Mg/3 Ml Neb.Leona*) 2.5 mg INH Q2H PRN PRN Reason: SOB/WHEEZING Last Admin: 12/07/18 19:50 Dose: 2.5 mg Albuterol (Ventolin 2.5 Mg/3 Ml Neb.Leona*) 2.5 mg INH Q4H [facility] Last Admin: 12/08/18 15:03 Dose: 2.5 mg Diltiazem HCl (Cardizem Cd Cap*) 240 mg PO DAILY [facility] Last Admin: 12/08/18 07:34 Dose: 240 mg Famotidine (Pepcid Tab*) 20 mg PO BID [facility] Last Admin: 12/08/18 07:34 Dose: 20 mg Furosemide (Lasix Tab*) 20 mg PO DAILY [facility] Last Admin: 12/08/18 07:34 Dose: 20 mg Gabapentin (Neurontin Cap(*)) 100 mg PO BEDTIME PRN PRN Reason: PAIN Guaifenesin (Mucinex*) 600 mg PO BID [facility] Last Admin: 12/08/18 07:34 Dose: 600 mg Cefepime HCl (Maxipime 2 Gm In Dextrose Duplex (*)) 2 gm in 50 mls @ 100 mls/ hr IV Q24H [facility] Last Admin: 12/07/18 21:02 Dose: 100 mls/hr Magnesium Oxide (Magox 400 Tab*) 400 mg PO BID [facility] Last Admin: 12/08/18 07:34 Dose: 400 mg Melatonin (Melatonin) 3 mg PO BEDTIME PRN PRN Reason: SLEEP Methylprednisolone Sodium Succinate (Solu-Medrol 40 Mg) 40 mg IV Q12H [facility] Last Admin: 12/08/18 08:56 Dose: 40 mg Metoprolol Succinate (Toprol Xl Tab*) 100 mg PO BID [facility] Last Admin: 12/08/18 07:34 Dose: 100 mg Mometasone Furoate/Formoterol Fumar (Dulera 100/5 Mdi*) 2 puff INH BID [facility] Last Admin: 12/08/18 07:42 Dose: 2 puff Morphine Sulfate (Morphine Inj ((Syringe))*) 1 mg IV Q3H PRN PRN Reason: SEVERE PAIN Last Admin: 12/06/18 04:52 Dose: 1 mg Polyvinyl Alcohol (Polyvinyl Alcohol 1.4% Opth*) 1 drop BOTH EYES Q4H PRN PRN Reason: SCLERAL EDEMA Last Admin: 12/04/18 11:15 Dose: 1 drop Rivaroxaban (Xarelto(*)) 20 mg PO DAILY [facility] Last Admin: 12/08/18 07:34 Dose: 20 mg Sotalol HCl (Betapace Tab*) 80 mg PO BID [facility] Last Admin: 12/08/18 07:34 Dose: 80 mg Tiotropium [place] (Spiriva Cap.Inh*) 1 cap INH DAILY [facility] Last Admin: 12/08/18 07:42 Dose: 1 cap Vital Signs - 8 hr 12/08/18 12/08/18 11:23 15:06 Pulse Rate 60 63 Respiratory 18 18 Rate O2 Sat by Pulse 98 98 Oximetry Oxygen Devices in Use Now: Nasal Cannula Appearance: well appearing, sleeping on side lying flat Respiratory: - - improved air movement, mild wheeze Cardiovascular: RRR Result Diagrams: 12/08/18 06:30 12/08/18 06:30 Microbiology and Other Data: Microbiology 12/02/18 22:05 Aerobic Blood Culture - Preliminary Blood Venous No Growth Day 3 12/02/18 22:03 Aerobic Blood Culture - Preliminary Blood Venous No Growth Day 3 12/03/18 06:07 Legionella Urinary Antigen - Final Urine Negative Legionella Antigen Streptococcus pneumoniae Ag Screen - Final Negative S. pneumo Antigen 12/02/18 20:55 Influenza Types A,B Antigen - Final Nasal Specimen received for Influenza A/B Molecular testing Assess/Plan/Problems-Billing Assessment: 57M with COPD on home O2 prn, afib s/p failed ablations, SSS s/p PPM, UC s/p bowel resection, HTN, YAMEL on CPAP, presenting immediately after discharge from outside hospital for persistent COPD exacerbation, required intubation in ER and now s/p ext 12/04. On cefepime pending clinical improvement. - Patient Problems (1) Acute and chronic respiratory failure with hypoxia Comment: - cont albuterol nebs prn - switch IV steroids (12/02 - 12/08) to PO on 12/09 - cont cefepime (12/02 - ), procal 0.22 on 12/07 - cont nightly BiPAP (previously on CPAP for YAMEL) - cont Dulera, Spiriva standing - cont morphine prn dyspnea - appreciate Dr. Joan aponte - SaO2 goal 88-92% (2) Atrial fibrillation Comment: also with SSS s/p PPM -Continue Metoprolol, Sotalol, Diltiazem, and Rivaroxaban (3) Anemia, macrocytic Comment: TSH/B12/folate normal. Status and Disposition: Inpatient medicine floors pending return of O2 requirements to baseline. Will need a prolonged steroid taper.
[2018-12-08] MEDS: Albuterol 2.5 MG/3 ML NEB.SOL* (0.083%) INH PRN (19:21)
[2018-12-08] MEDS: Cefepime 2 GM in Dextrose(*) 2 GM/50 ML BAG IV SCH (21:47)
[2018-12-08] MEDS ORDERED: Metoprolol Tartrate IV* 1 MG/ML 5 ML VIAL ONE (22:06)
[2018-12-08] MEDS ORDERED: Morphine INJ* 2 MG/ML 1 ML SYRINGE (TWO MG - NEW SYRINGE VERSION) ONE (22:06)
[2018-12-08] MEDS ORDERED: Levalbuterol 1.25MG/0.5ML NEB ONE (22:07)
[2018-12-08] MEDS ORDERED: Aspirin TAB* 325 MG ONE (22:07)
[2018-12-08] MEDS ORDERED: Nitroglycerin TAB 0.4 MG* 0.4 MG TAB ONE (22:07)
[2018-12-08] MEDS ORDERED: Levalbuterol 1.25MG/0.5ML NEB INH ONE (22:12)
[2018-12-08] MEDS ORDERED: Morphine 4 MG/ML VIAL (1 ml) 4 MG/ML VIAL IV ONE (22:12)
[2018-12-08] MEDS ORDERED: Aspirin TAB* 325 MG PO ONE (22:12)
[2018-12-08] MEDS ORDERED: Morphine INJ* 2 MG/ML 1 ML SYRINGE (TWO MG - NEW SYRINGE VERSION) IV ONE (22:12)
[2018-12-08] MEDS ORDERED: Nitroglycerin TAB 0.4 MG* 0.4 MG TAB SL ONE (22:12)
--- NOTE | 2018-12-08 22:23 | PN ---
Progress Note - Progress Note Date of Service: 12/08/18 Note: Paged for chest tightness. Patient's EKG showing ST elevation in leads V1 and V2 with reciprocal depression in anterior leads. Patient states he is having chest tightness over the right side for the past hour. Diaphoretic. No nausea. Some SOB. Has COPD on RA at home. Hx of Afib s/p ablations on xarelto. Wears biPAP at night. STEMI called Cardiac: tachycardic with systolic murmur Resp: diminished breath sounds with b/l expiratory wheeze ASA 325 mg, NTG SL, MOrphine 2 mg, Lopressor 5 mg and Xopenox given. Spoke with Dr. Abel - Patient being transferred to ICU and will be elevated in ICU to determine if he should go to director of cardiac cath lab this evening
[2018-12-08] MEDS ORDERED: Levalbuterol 1.25MG/0.5ML NEB INH PRN (22:30)
[2018-12-08] MEDS ORDERED: Heparin DRIP 25,000 UNITS(*) 0 UNITS/0 ML BAG ONE (22:31)
[2018-12-08] MEDS ORDERED: nitroGLYCERIN DRIP* 25,000 MCG/250 ML BTL ONE ×2 (22:31→22:52)
[2018-12-08] MEDS ORDERED: Midazolam* 1 MG/ML 5 ML VIAL (5 MG) ONE (22:31)
[2018-12-08] MEDS ORDERED: Heparin(*) 1000 UNIT/ML 10 ML VIAL CATH LAB IV ONE (22:31)
[2018-12-08] MEDS ORDERED: Lidocaine 1% INJ* 10 MG/ML 30 ML SDV ONE (22:31)
[2018-12-08] MEDS ORDERED: VERAPAMIL 2.5 MG/ML 2 ML VIAL ** 5 mg/2 ml ONE (22:31)
[2018-12-08] MEDS ORDERED: fentaNYL* 50 MCG/ML 2 ML VIAL (100 MCG VIAL) ONE (22:31)
[2018-12-08] MEDS ORDERED: Heparin 2 UNITS/ML IVPREMIX* 3,000 UNIT/1,500 ML BAG IV ONE (22:32)
[2018-12-08] MEDS ORDERED: Iohexol 350 (CONTRAST) 200 ML MDV IV ONE (22:33)
[2018-12-08 22:34] LABS: Hematocrit 32 % (36-46); Hemoglobin 10.6 g/dL (14.0-18.0); Mean Corpuscular HGB Conc 33 g/dL (31-36); Mean Corpuscular Hemoglobin 32 pg (27-31); Mean Corpuscular Volume 97 fL (80-94); Mean Platelet Volume 7.9 fL (7.4-10.4); Platelet Count 161 10^3/uL (150-450); Red Blood Count 3.33 10^6 /uL (4.18-5.48); Red Cell Distribution Width 16 % (10.5-15); White Blood Count 20.1 10^3/uL (3.5-10.8)
[2018-12-08 22:41] LABS: Activated Partial Thrombo Time 22.6 seconds (26.0-36.3); INR 1.06 (0.77-1.02)
[2018-12-08] MEDS ORDERED: Heparin VIAL(*) 5000 UNITS/ML VIAL (FIVE THOUSAND) ONE (22:41)
[2018-12-08 22:49] LABS: Albumin 3.7 g/dL (3.2-5.2); Albumin/Globulin Ratio 1.8 (1-3); Calcium 9.3 mg/dL (8.6-10.3); EGFR African American 93.2 (>60); Globulin 2.1 g/dL (2-4); Total Bilirubin 0.3 mg/dL (0.2-1.0); Total Protein 5.8 g/dL (6.4-8.9)
[2018-12-08 22:53] LABS: Troponin I 0.03 ng/mL (<0.04)
[2018-12-08 22:54] LABS: Myoglobin 14.1 ng/mL (17.4-105.7)
[2018-12-08 22:55] LABS: CKMB ng/mL 3.1 ng/mL (0.6-6.3)
[2018-12-09] MEDS: Melatonin 3 MG TAB PO PRN ×2 (01:03→23:35)
[2018-12-09] MEDS: Morphine 4 MG/ML VIAL (1 ml) 4 MG/ML VIAL IV PRN ×7 (01:09→23:35)
[2018-12-09] MEDS: Levalbuterol 1.25MG/0.5ML NEB INH SCH ×7 (01:25→23:24)
--- NOTE | 2018-12-09 01:31 | CONS ---
CC: Dr. Kennedy * INTERVENTIONAL CARDIOLOGY CONSULT NOTE: DATE OF CONSULT: 12/08/18 TIPPLE TENDER: Dr. Kennedy. HISTORY OF PRESENT ILLNESS: A 57-year-old male with severe chronic lung disease , in the process of evaluation for lung transplant at [facility]. He was admitted here on 12/02/18 with acute respiratory failure with hypercarbia, he had just been discharged from [place] where he was admitted with a COPD exacerbation. We do have some records from [place], I note that he had a normal troponin there. When he was admitted here, he was intubated in the ER for hypercarbic respiratory failure, was subsequently extubated, has been transferred to the floor. He has been on steroids, has gained about 5 to 6 pounds compared to admission weight. Dr. Franco thought he might be volume over-loaded, he has been getting diuresed. BNP is chronically elevated. This evening at around 2130 hours, he had what he described as severe central burning and pressure chest discomfort with some radiation into his right arm. He relates that this has been present off and on for 6 months, however, never with exertion. He would typically get this at rest, it would typically last 30 minutes, it would hurt more with movement or taking a deep breath and was accompanied by precordial chest wall tenderness. It would resolve spontaneously. He also reports that he often but not always has the same kind of chest ciscomfort, described as sharp burning pain, during episodes of rapid AF. He tells me he had a stress imaging study with Dr. Kennedy last year, he is unaware of any abnormality from that study. He also had an echocardiogram and was told that his heart pumping had improved. He had an echocardiogram here 11/11/18, which reported normal LV size with LVH, normal contractility with estimated EF of 55% to 60%, RV function was normal, he had no significant valve disease, RV systolic pressure could not be estimated. On further history , he tells me he has been having chest discomfort "building" all day long. It started sometime in the morning and he noticed that it hurt to walk because it hurt to breathe. It gradually worsened and by 2129, it was severe. He relates that his shortness breath was not particularly worse at that time. [facility] shows probably atrial fibrillation with rapid ventricular response at 154 with 1 PVC. He has a history of paroxysmal atrial fibrillation, has had previous ablation, is chronically on Xarelto. He was treated with 5 mg of IV Lopressor, sublingual nitroglycerin and 325 mg of aspirin as well as morphine. He was then transferred to the ICU where I am seeing him. He currently still has a chest discomfort, which he describes as being fairly localized in the xiphoid area, it hurts to breathe, it is tender, he does have some radiation of discomfort into his right arm, but it is significantly improved. His shortness of breath is stable. He is not diaphoretic, in distress, looks quite comfortable actually. PAST MEDICAL HISTORY: Paroxysmal atrial fibrillation, status post ablation, on Xarelto. COPD, severe with recurring recent exacerbations, in the process of transplant evaluation at [facility]. History of ulcerative colitis, post colostomy, obstructive sleep apnea, hypertension. CURRENT MEDICATIONS: Notable for, 1. Cardizem CD 240 mg daily. 2. Toprol-XL 100 mg b.i.d. 3. Xarelto 20 mg daily. 4. Sotalol 80 mg b.i.d. 5. Antibiotics. 6. Pepcid. 7. Neurontin. 8. Inhalers. 9. Lasix 20 mg daily. 10. Prednisone. ALLERGIES: CIPROFLOXACIN. FAMILY HISTORY: Negative for premature coronary artery disease. SOCIAL HISTORY: He is a former smoker. REVIEW OF SYSTEMS: General: No weight loss. No fever. 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 Heme: No history of malignancy or bleeding, on Xarelto. Remainder negative. PHYSICAL EXAM: Currently, he is not in distress. He is tachypneic, but not perceiving severe dyspnea. He does still have some degree of chest discomfort as above, it has improved. His current blood pressure is 134/88, heart rate is in the 70s, sinus rhythm. Lungs: I hear no wheezing or rales, his lungs are hyperresonant. I cannot see his jugular venous pulse. Carotids are palpable without bruits. HEENT is unremarkable. Cardiac Exam: Heart sounds are extremely distant and soft, I do not hear any gallop, murmur or rub. The abdomen is benign with normal bowel sounds without tenderness. Radial and femoral pulses are palpable. Pedals are palpable. He has at least 1+ pitting edema bilaterally. DIAGNOSTIC STUDIES/LAB DATA: Repeat EKG at 2249 shows sinus rhythm at 78 with reversion to sinus rhythm, and much improved ST depression in his inferolateral leads. Compared to EKG of 12/06/18 at 5, his ST changes are at baseline. His troponin is flat at 0.03. His BNP is high at 309 and has been elevated since 10/30/17. IMPRESSION: Chest pain. This occurred in the setting of paroxysmal atrial fibrillation with rapid ventricular response, he is much improved with medical management, EKG is back to baseline. I am not convinced that this was an ischemic event given his reported gradually building chest discomfort all day long with nonetheless an unremarkable troponin. I think it is likely that he has non cardiac chest pain related tyo his PAF and chronic lung disease. However, I concur with holding his Xarelto for the time being in case he needs to undergo cardiac cath. He will need to be transitioned to heparin or Lovenox. We will try to get the records of his stress test from [place]. This was all discussed with the patient who understands. He understands that there is a possibility that he is having ACS, but also understands the comorbidities including chronic anticoagulation, severe lung disease with difficulty lying flat. Thanks for the consult, we will follow with you. [id number]/[facility] #: [id number] ELIUD
[2018-12-09 03:10] LABS: ABS Basophils 0 10^3/ul (0-0.2); ABS Eosinophils 0 10^3/ul (0-0.6); ABS Lymphocytes 0.3 10^3/ul (1.0-4.8); ABS Monocytes 1.4 10^3/ul (0-0.8); ABS Neutrophils 18.3 10^3/ul (1.5-7.7); ABS Nucleated RBC 0.1 10^3/ul; Eosinophil % 0 %; Lymphocyte % 1.7 %; Nucleated Red Blood Cells % 0.3
[2018-12-09 05:54] LABS: Hematocrit 29 % (36-46); Hemoglobin 9.6 g/dL (14.0-18.0); Mean Corpuscular HGB Conc 33 g/dL (31-36); Mean Corpuscular Hemoglobin 32 pg (27-31); Mean Corpuscular Volume 97 fL (80-94); Mean Platelet Volume 7.7 fL (7.4-10.4); Platelet Count 151 10^3/uL (150-450); Red Blood Count 2.99 10^6 /uL (4.18-5.48); Red Cell Distribution Width 16 % (10.5-15); White Blood Count 17.8 10^3/uL (3.5-10.8)
[2018-12-09 06:14] LABS: BUN/Creatinine Ratio 45.5 (8-20); Calcium 8.8 mg/dL (8.6-10.3); EGFR Non-African American 104.1 (>60); Potassium 4.7 mmol/L (3.5-5.0)
[2018-12-09 06:16] LABS: ABS Basophils 0.1 10^3/ul (0-0.2); ABS Eosinophils 0 10^3/ul (0-0.6); ABS Lymphocytes 0.3 10^3/ul (1.0-4.8); ABS Monocytes 1.4 10^3/ul (0-0.8); ABS Neutrophils 15.9 10^3/ul (1.5-7.7); ABS Nucleated RBC 0 10^3/ul
[2018-12-09 06:17] LABS: Immature Granulocytes 8 % (0-9); Lymphocytes % 4 %; Monocytes % 9 %; Myelocytes % 1 % (0-1); Neutrophil % 79 %; Nucleated Red Blood Cells/100 1 (0-0)
[2018-12-09 06:18] LABS: Polychromasia 1+
[2018-12-09 06:19] LABS: ABS Neutrophils 15.5 10^3/ul (1.5-7.7)
[2018-12-09] MEDS: Tiotropium CAP.INH* CAP.INH/18 MCG (USE ORDER SET !) INH SCH (07:34)
[2018-12-09] MEDS: Mometasone/Formoter 100/5 MDI INH SCH ×2 (07:34→19:50)
[2018-12-09] MEDS: Diltiazem CD CAP* 240 MG PO SCH (08:14)
[2018-12-09] MEDS: Sotalol TAB* 80 MG PO SCH ×2 (08:14→20:01)
[2018-12-09] MEDS: Metoprolol Succinate XL TAB* 100 MG PO SCH ×2 (08:14→19:40)
[2018-12-09] MEDS: Furosemide TAB* 20 MG PO SCH (08:14)
[2018-12-09] MEDS: guaiFENesin ER TAB 600 MG PO SCH ×2 (08:15→19:41)
[2018-12-09] MEDS: Famotidine TAB* 20 MG PO SCH ×2 (08:15→19:40)
[2018-12-09] MEDS: Magnesium Oxide TAB* 400 MG PO SCH ×2 (08:15→19:41)
[2018-12-09] MEDS: predniSONE TAB* 50 MG PO SCH (08:15)
[2018-12-09] MEDS ORDERED: Enoxaparin(*) 80 MG/0.8 ML SYR SUBCUT SCH (09:00)
--- NOTE | 2018-12-09 12:56 | PN ---
Subjective Interval History: Eventful night. Had recurrence of chest pain with diaphoresis. Likely that this was from paroxysmal rapid afib. Cards evaluated pt and has low concern for ACS as this time. When back in NSR, ST segments at baseline. Trops negative x 3. Pt back on rivaroxaban and may return to floors, per cardiology. On interview this AM, reports feeling back to his baseline. Noted again that SaO2 100% - above goal - on 3 L. Today is first day on ORAL steroids. Finished 7 days cefepime last night. Objective Active Medications: Diltiazem HCl (Cardizem Cd Cap*) 240 mg PO DAILY [facility] Last Admin: 12/09/18 08:14 Dose: 240 mg Famotidine (Pepcid Tab*) 20 mg PO BID [facility] Last Admin: 12/09/18 08:15 Dose: 20 mg Furosemide (Lasix Tab*) 20 mg PO DAILY [facility] Last Admin: 12/09/18 08:14 Dose: 20 mg Gabapentin (Neurontin Cap(*)) 100 mg PO BEDTIME PRN PRN Reason: PAIN Last Admin: 12/09/18 01:03 Dose: 100 mg Guaifenesin (Mucinex*) 600 mg PO BID [facility] Last Admin: 12/09/18 08:15 Dose: 600 mg Cefepime HCl (Maxipime 2 Gm In Dextrose Duplex (*)) 2 gm in 50 mls @ 100 mls/ hr IV Q24H [facility] Last Admin: 12/08/18 21:47 Dose: 100 mls/hr Levalbuterol HCl (Xopenex 1.25 Mg/0.5 Ml Neb.Leona*) 1.25 mg INH Q4H [facility] Last Admin: 12/09/18 11:05 Dose: 1.25 mg Levalbuterol HCl (Xopenex 1.25 Mg/0.5 Ml Neb.Leona*) 1.25 mg INH [id number] AWAKE PRN PRN Reason: SOB/WHEEZING Magnesium Oxide (Magox 400 Tab*) 400 mg PO BID [facility] Last Admin: 12/09/18 08:15 Dose: 400 mg Melatonin (Melatonin) 3 mg PO BEDTIME PRN PRN Reason: SLEEP Last Admin: 12/09/18 01:03 Dose: 3 mg Metoprolol Succinate (Toprol Xl Tab*) 100 mg PO BID [facility] Last Admin: 12/09/18 08:14 Dose: 100 mg Mometasone Furoate/Formoterol Fumar (Dulera 100/5 Mdi*) 2 puff INH BID [facility] Last Admin: 12/09/18 07:34 Dose: 2 puff Morphine Sulfate (Morphine 4 Mg/Ml Vial (1 Ml)) 1 mg IV Q3H PRN PRN Reason: SEVERE PAIN Last Admin: 12/09/18 11:17 Dose: 1 mg Polyvinyl Alcohol (Polyvinyl Alcohol 1.4% Opth*) 1 drop BOTH EYES Q4H PRN PRN Reason: SCLERAL EDEMA Last Admin: 12/04/18 11:15 Dose: 1 drop Prednisone (Deltasone Tab*) 50 mg PO DAILY [facility] Last Admin: 12/09/18 08:15 Dose: 50 mg Rivaroxaban (Xarelto(*)) 20 mg PO DAILY [facility] Sotalol HCl (Betapace Tab*) 80 mg PO BID [facility] Last Admin: 12/09/18 08:14 Dose: 80 mg Tiotropium [place] (Spiriva Cap.Inh*) 1 cap INH DAILY [facility] Last Admin: 12/09/18 07:34 Dose: 1 cap Vital Signs - 8 hr 12/09/18 12/09/18 12/09/18 05:00 06:00 07:00 Temperature Pulse Rate 60 60 60 Respiratory 17 16 17 Rate Blood Pressure 144/88 159/95 161/92 (mmHg) O2 Sat by Pulse 100 99 99 Oximetry 12/09/18 12/09/18 12/09/18 07:01 07:30 07:37 Temperature Pulse Rate 60 63 Respiratory 16 22 18 Rate Blood Pressure (mmHg) O2 Sat by Pulse 99 98 Oximetry 12/09/18 12/09/18 12/09/18 08:00 08:01 08:53 Temperature 97.9 F Pulse Rate 60 Respiratory 18 20 18 Rate Blood Pressure 150/89 (mmHg) O2 Sat by Pulse 98 Oximetry 12/09/18 12/09/18 12/09/18 09:01 10:00 10:01 Temperature Pulse Rate 67 Respiratory 14 18 20 Rate Blood Pressure 131/66 (mmHg) O2 Sat by Pulse 96 Oximetry 12/09/18 12/09/18 12/09/18 11:00 11:01 11:06 Temperature Pulse Rate 62 61 70 Respiratory 18 19 18 Rate Blood Pressure 124/75 (mmHg) O2 Sat by Pulse 97 97 99 Oximetry 12/09/18 12/09/18 11:17 11:58 Temperature 97.2 F Pulse Rate 62 Respiratory 18 24 Rate Blood Pressure 118/68 (mmHg) O2 Sat by Pulse 98 Oximetry Oxygen Devices in Use Now: Nasal Cannula - decreased to 1 L Appearance: well appearing, comfortable, speaking in full sentences Ears/Nose/Mouth/Throat: Mucous Membranes Moist Respiratory: - - diffuse mild wheeze Cardiovascular: RRR Extremities: - - 2+ to mid shins Result Diagrams: 12/09/18 05:34 12/09/18 05:34 Microbiology and Other Data: Microbiology 12/02/18 22:05 Aerobic Blood Culture - Preliminary Blood Venous No Growth Day 3 12/02/18 22:03 Aerobic Blood Culture - Preliminary Blood Venous No Growth Day 3 12/03/18 06:07 Legionella Urinary Antigen - Final Urine Negative Legionella Antigen Streptococcus pneumoniae Ag Screen - Final Negative S. pneumo Antigen 12/02/18 20:55 Influenza Types A,B Antigen - Final Nasal Specimen received for Influenza A/B Molecular testing Assess/Plan/Problems-Billing Assessment: 57M with COPD on home O2 prn, afib s/p failed ablations, SSS s/p PPM, UC s/p bowel resection, HTN, YAMEL on CPAP, presenting immediately after discharge from outside hospital for persistent COPD exacerbation, required intubation in ER and now s/p ext 12/04. On cefepime pending clinical improvement. - Patient Problems (1) Acute and chronic respiratory failure with hypoxia Comment: - cont albuterol nebs prn - switched IV steroids (12/02 - 12/08) to pred 50mg PO on 12/09, cont taper - s/p cefepime (12/02 - 12/08) - cont nightly BiPAP (previously on CPAP for YAMEL) - cont Dulera, Spiriva standing - cont morphine prn dyspnea - appreciate Dr. Joan aponte - SaO2 goal 88-92% (2) Atrial fibrillation Comment: also with SSS s/p PPM -Continue Metoprolol, Sotalol, Diltiazem, and Rivaroxaban (3) Anemia, macrocytic Comment: TSH/B12/folate normal. Status and Disposition: Inpatient medicine floors, likely DC soon. Will need a prolonged steroid taper.
--- NOTE | 2018-12-09 18:24 | PN ---
Progress Note - Progress Note Date of Service: 12/09/18 - Pulm f/u note Note: Pt seen and examined at bedside. O/n events noted. Pt transferred to ICU for possibel ACS. Chest pain resolved now. Was treated for A.fib with RVR. Pt reports feeling better. SOB is slightly improved even though gets winded with minimal exertion. Is able to expectorate phleghm. LE edema is improving. Active Medications Generic Name Dose Route Start Last Admin Trade Name Freq PRN Reason Stop Dose Admin Diltiazem HCl 240 mg 12/03/18 09:00 12/09/18 08:14 Cardizem Cd Cap* PO 240 mg DAILY JUSTIN Administration Famotidine 20 mg 12/03/18 21:00 12/09/18 08:15 Pepcid Tab* PO 20 mg BID JUSTIN Administration Furosemide 20 mg 12/06/18 09:00 12/09/18 08:14 Lasix Tab* PO 20 mg DAILY JUSTIN Administration Gabapentin 100 mg 12/05/18 09:04 12/09/18 01:03 Neurontin Cap(*) PO 100 mg BEDTIME PRN Administration PAIN Guaifenesin 600 mg 12/07/18 13:00 12/09/18 08:15 Mucinex* PO 600 mg BID JUSTIN Administration Levalbuterol HCl 1.25 mg 12/08/18 23:00 12/09/18 15:18 Xopenex 1.25 Mg/0.5 Ml Neb.Leona* INH 1.25 mg Q4H JUSTIN Administration Levalbuterol HCl 1.25 mg 12/08/18 22:30 Xopenex 1.25 Mg/0.5 Ml Neb.Leona* INH [id number] AWAKE PRN SOB/WHEEZING Magnesium Oxide 400 mg 12/03/18 09:00 12/09/18 08:15 Magox 400 Tab* PO 400 mg BID JUSTIN Administration Melatonin 3 mg 12/08/18 14:06 12/09/18 01:03 Melatonin PO 3 mg BEDTIME PRN Administration SLEEP Metoprolol Succinate 100 mg 12/03/18 09:00 12/09/18 08:14 Toprol Xl Tab* PO 100 mg BID JUSTIN Administration Mometasone Furoate/Formoterol Fumar 2 puff 12/05/18 21:00 12/09/18 07:34 Dulera 100/5 Mdi* INH 2 puff BID JUSTIN Administration Morphine Sulfate 1 mg 12/09/18 02:00 12/09/18 14:56 Morphine 4 Mg/Ml Vial (1 Ml) IV 1 mg Q3H PRN Administration SEVERE PAIN Polyvinyl Alcohol 1 drop 12/04/18 09:24 12/04/18 11:15 Polyvinyl Alcohol 1.4% Opth* BOTH EYES 1 drop Q4H PRN Administration SCLERAL EDEMA Prednisone 50 mg 12/09/18 07:00 12/09/18 08:15 Deltasone Tab* PO 50 mg DAILY JUSTIN Administration Rivaroxaban 20 mg 12/09/18 21:00 Xarelto(*) PO DAILY JUSTIN Sotalol HCl 80 mg 12/03/18 09:00 12/09/18 08:14 Betapace Tab* PO 80 mg BID JUSTIN Administration Tiotropium [place] 1 cap 12/06/18 09:00 12/09/18 07:34 Spiriva Cap.Inh* INH 1 cap DAILY JUSTIN Administration Vital Signs Temp Pulse Resp BP Pulse Ox 96.8 F 60 17 129/76 99 12/09/18 15:18 12/09/18 15:20 12/09/18 16:59 12/09/18 15:18 12/09/18 15:20 O/E: Pt in NAD, sitting up in bed HEENT: PERRLA Lungs: Diminished air entry, wheeze+, slightly improved CVS: S1, S@+ Abd: Soft, BS+ Ext: Edema+, improved Skin: No rash Neuro: Alert, awake, no focal deficits Laboratory Results - last 24 hr 12/08/18 12/08/18 12/08/18 22:15 22:15 22:15 WBC 20.1 H RBC 3.33 L Hgb 10.6 L Hct 32 L MCV 97 H MCH 32 H MCHC 33 RDW 16 H Plt Count 161 MPV 7.9 Neut % (Auto) 91.4 Lymph % (Auto) 1.7 Lyman % (Auto) 6.9 Eos % (Auto) 0 Baso % (Auto) 0 Absolute Neuts (auto) 18.3 H Absolute Lymphs (auto) 0.3 L Absolute Monos (auto) 1.4 H Absolute Eos (auto) 0 Absolute Basos (auto) 0 Absolute Nucleated RBC 0.1 Immature Gran % Neutrophils % Band Neutrophils % Lymphocytes % Monocytes % Myelocytes % Nucleated RBC % 0.3 Abs Neuts (Manual) Abs Lymphs (Manual) Abs Monocytes (Manual) Nucleated RBCs/100 WBC Normal RBC Morphology Polychromasia Macrocytosis INR (Anticoag Therapy) 1.06 H APTT 22.6 L Sodium 135 Potassium 5.0 Chloride 97 L Carbon Dioxide 34 H Anion Gap 4 BUN 36 H Creatinine 1.00 Est GFR ( Amer) 93.2 Est GFR (Non-Af Amer) 77.0 BUN/Creatinine Ratio 36.0 H Glucose 225 H Calcium 9.3 Magnesium Total Bilirubin 0.30 AST 47 H ALT 138 H Alkaline Phosphatase 69 Total Creatine Kinase 23 CK-MB (CK-2) 3.1 Myoglobin 14.1 L Troponin I 0.03 B-Natriuretic Peptide Total Protein 5.8 L Albumin 3.7 Globulin 2.1 Albumin/Globulin Ratio 1.8 LDL Cholesterol Direct 148 Blood Type Antibody Screen 12/08/18 12/08/18 12/09/18 22:15 22:15 02:22 WBC RBC Hgb Hct MCV MCH MCHC RDW Plt Count MPV Neut % (Auto) Lymph % (Auto) Lyman % (Auto) Eos % (Auto) Baso % (Auto) Absolute Neuts (auto) Absolute Lymphs (auto) Absolute Monos (auto) Absolute Eos (auto) Absolute Basos (auto) Absolute Nucleated RBC Immature Gran % Neutrophils % Band Neutrophils % Lymphocytes % Monocytes % Myelocytes % Nucleated RBC % Abs Neuts (Manual) Abs Lymphs (Manual) Abs Monocytes (Manual) Nucleated RBCs/100 WBC Normal RBC Morphology Polychromasia Macrocytosis INR (Anticoag Therapy) APTT Sodium Potassium Chloride Carbon Dioxide Anion Gap BUN Creatinine Est GFR ( Amer) Est GFR (Non-Af Amer) BUN/Creatinine Ratio Glucose Calcium Magnesium Total Bilirubin AST ALT Alkaline Phosphatase Total Creatine Kinase CK-MB (CK-2) Myoglobin Troponin I 0.03 B-Natriuretic Peptide 309 H Total Protein Albumin Globulin Albumin/Globulin Ratio LDL Cholesterol Direct Blood Type O Positive Antibody Screen Negative 12/09/18 12/09/18 12/09/18 05:34 05:34 11:11 WBC 17.8 H RBC 2.99 L Hgb 9.6 L Hct 29 L MCV 97 H MCH 32 H MCHC 33 RDW 16 H Plt Count 151 MPV 7.7 Neut % (Auto) Not Reportable Lymph % (Auto) Not Reportable Lyman % (Auto) Not Reportable Eos % (Auto) Not Reportable Baso % (Auto) Not Reportable Absolute Neuts (auto) 15.9 H Absolute Lymphs (auto) 0.3 L Absolute Monos (auto) 1.4 H Absolute Eos (auto) 0 Absolute Basos (auto) 0.1 Absolute Nucleated RBC 0 Immature Gran % 8 Neutrophils % 79 Band Neutrophils % 7 Lymphocytes % 4 Monocytes % 9 Myelocytes % 1 Nucleated RBC % Not Reportable Abs Neuts (Manual) 15.5 H Abs Lymphs (Manual) 0.7 L Abs Monocytes (Manual) 1.6 H Nucleated RBCs/100 WBC 1 H Normal RBC Morphology Not Reportable Polychromasia 1+ Macrocytosis 2+ INR (Anticoag Therapy) APTT Sodium 135 Potassium 4.7 Chloride 100 L Carbon Dioxide 31 Anion Gap 4 BUN 35 H Creatinine 0.77 Est GFR ( Amer) 126.0 Est GFR (Non-Af Amer) 104.1 BUN/Creatinine Ratio 45.5 H Glucose 123 H Calcium 8.8 Magnesium 2.0 Total Bilirubin AST ALT Alkaline Phosphatase Total Creatine Kinase CK-MB (CK-2) Myoglobin Troponin I 0.03 B-Natriuretic Peptide Total Protein Albumin Globulin Albumin/Globulin Ratio LDL Cholesterol Direct Blood Type Antibody Screen I/R: 57M with COPD on home O2 prn, afib s/p failed ablations, SSS s/p PPM, UC s /p bowel resection, HTN, YAMEL on CPAP, presenting immediately after discharge from outside hospital for persistent COPD exacerbation, required intubation s/p ext 12/04. Pt being treated for acute COPD exacerbation likelty sec to viral bronchitis/ PNA and hypercapnic and hypoxic resp fdailure Had atypical chest pain yesterday, was managed for A.fib with RVR, troponins not elevated Better today Has tenuous resp status in setting of severe COPD Pt improving albeit slowly On cefepime for HCAP Has significant edema of LE and wt gain, better after additional dos of Lasix Using BiPAP and its helping Able to expectorate secretions, will c/w flutter device OOB to chair, ambulate as tolerated c/w bronchodilators
[2018-12-09] MEDS: Rivaroxaban TAB(*) 20 MG TAB PO SCH (19:40)
[2018-12-10] MEDS: Levalbuterol 1.25MG/0.5ML NEB INH SCH ×6 (03:12→23:03)
[2018-12-10] MEDS: Morphine 4 MG/ML VIAL (1 ml) 4 MG/ML VIAL IV PRN ×4 (03:22→20:10)
[2018-12-10] MEDS: Mometasone/Formoter 100/5 MDI INH SCH ×2 (07:27→19:23)
[2018-12-10] MEDS: Tiotropium CAP.INH* CAP.INH/18 MCG (USE ORDER SET !) INH SCH (07:27)
[2018-12-10] MEDS: Famotidine TAB* 20 MG PO SCH ×2 (07:36→20:10)
[2018-12-10] MEDS: predniSONE TAB* 50 MG PO SCH (07:36)
[2018-12-10] MEDS: Rivaroxaban TAB(*) 20 MG TAB PO SCH (07:36)
[2018-12-10] MEDS: Magnesium Oxide TAB* 400 MG PO SCH ×2 (07:36→20:10)
[2018-12-10] MEDS: Diltiazem CD CAP* 240 MG PO SCH (07:36)
[2018-12-10] MEDS: guaiFENesin ER TAB 600 MG PO SCH ×2 (07:36→20:10)
[2018-12-10] MEDS: Metoprolol Succinate XL TAB* 100 MG PO SCH ×2 (07:36→20:10)
[2018-12-10] MEDS: Furosemide TAB* 20 MG PO SCH (07:36)
[2018-12-10] MEDS: Furosemide TAB* 40 MG PO SCH (08:28)
[2018-12-10 08:39] LABS: Methylmalonic Acid 0.25 nmol/mL (<=0.40)
[2018-12-10] MEDS: Sotalol TAB* 80 MG PO SCH ×2 (09:00→20:10)
[2018-12-10] MEDS ORDERED: Diltiazem IV* 5 MG/ML 5 ML VIAL (for loading dose/IV Push) (25 MG) IV SLOW PU PRN (09:07)
[2018-12-10] MEDS ORDERED: Furosemide TAB* 20 MG PO ONE (12:00)
--- NOTE | 2018-12-10 15:49 | PN ---
Progress Note - Progress Note Date of Service: 12/10/18 - Pulm f/u note Note: Pt seen and examined at bedside. Pt reports feeling better, had episodes of RVR this am. Cough is more productive Active Medications Generic Name Dose Route Start Last Admin Trade Name Freq PRN Reason Stop Dose Admin Diltiazem HCl 240 mg 12/03/18 09:00 12/10/18 07:36 Cardizem Cd Cap* PO 240 mg DAILY JUSTIN Administration Diltiazem HCl 15 mg 12/10/18 09:07 Diltiazem Iv* IV SLOW PU ONCE PRN if sustained rapid afib Famotidine 20 mg 12/03/18 21:00 12/10/18 07:36 Pepcid Tab* PO 20 mg BID JUSTIN Administration Furosemide 40 mg 12/10/18 09:00 12/10/18 08:28 Lasix Tab* PO Not Given DAILY JUSTIN Gabapentin 100 mg 12/05/18 09:04 12/09/18 01:03 Neurontin Cap(*) PO 100 mg BEDTIME PRN Administration PAIN Guaifenesin 600 mg 12/07/18 13:00 12/10/18 07:36 Mucinex* PO 600 mg BID JUSTIN Administration Levalbuterol HCl 1.25 mg 12/08/18 23:00 12/10/18 14:22 Xopenex 1.25 Mg/0.5 Ml Neb.Leona* INH 1.25 mg Q4H JUSTIN Administration Levalbuterol HCl 1.25 mg 12/08/18 22:30 Xopenex 1.25 Mg/0.5 Ml Neb.Leona* INH [id number] AWAKE PRN SOB/WHEEZING Magnesium Oxide 400 mg 12/03/18 09:00 12/10/18 07:36 Magox 400 Tab* PO 400 mg BID JUSTIN Administration Melatonin 3 mg 12/08/18 14:06 12/09/18 23:35 Melatonin PO 3 mg BEDTIME PRN Administration SLEEP Metoprolol Succinate 100 mg 12/03/18 09:00 12/10/18 07:36 Toprol Xl Tab* PO 100 mg BID JUSTIN Administration Mometasone Furoate/Formoterol Fumar 2 puff 12/05/18 21:00 12/10/18 07:27 Dulera 100/5 Mdi* INH 2 puff BID JUSTIN Administration Morphine Sulfate 1 mg 12/09/18 02:00 03/22/19 12:47 Morphine 4 Mg/Ml Vial (1 Ml) IV 1 mg Q3H PRN Administration SEVERE PAIN Polyvinyl Alcohol 1 drop 12/04/18 09:24 12/04/18 11:15 Polyvinyl Alcohol 1.4% Opth* BOTH EYES 1 drop Q4H PRN Administration SCLERAL EDEMA Prednisone 50 mg 12/09/18 07:00 12/10/18 07:36 Deltasone Tab* PO 50 mg DAILY JUSTIN Administration Rivaroxaban 20 mg 12/09/18 21:00 12/10/18 07:36 Xarelto(*) PO 20 mg DAILY JUSTIN Administration Sotalol HCl 80 mg 12/03/18 09:00 12/10/18 09:00 Betapace Tab* PO 80 mg BID JUSTIN Administration Tiotropium [place] 1 cap 12/06/18 09:00 12/10/18 07:27 Spiriva Cap.Inh* INH 1 cap DAILY JUSTIN Administration Vital Signs Temp Pulse Resp BP Pulse Ox 97.5 F 60 22 143/80 98 12/10/18 11:05 12/10/18 14:25 12/10/18 14:54 12/10/18 11:05 12/10/18 14:25 O/E: Pt in NAD, walking in hallway HEENT: PERRLA, mucus membranes moist Lungs: Diminished air entry, wheeze+, slightly improved CVS: S1, S2+ Abd: Soft, BS+ Ext: Edema+, improved Skin: No rash Neuro: Alert, awake, no focal deficits Laboratory Results - last 24 hr 12/07/18 06:34 Methylmalonic Acid 0.25 I/R: 57M with COPD on home O2 prn, afib s/p failed ablations, SSS s/p PPM, UC s /p bowel resection, HTN, YAMEL on CPAP, presenting immediately after discharge from outside hospital for persistent COPD exacerbation, required intubation s/p ext 12/04. Pt being treated for acute COPD exacerbation likely sec to viral bronchitis/PNA and hypercapnic and hypoxic resp fdailure Having episodes of A.fib with RVR Overall improved Less wheeze now Ambulating without much issues Using BiPAP and its helping Able to expectorate secretions, will c/w flutter device OOB to chair, ambulate as tolerated c/w bronchodilators D/c planning
--- NOTE | 2018-12-10 22:12 | PN ---
Subjective Interval History: Pt with episode of rapid afib today - self resolved. With minor chest pain during this. Has been walking a lot today. Reports improvement in symptoms and back to baseline. Objective Active Medications: Diltiazem HCl (Cardizem Cd Cap*) 240 mg PO DAILY [facility] Last Admin: 12/10/18 07:36 Dose: 240 mg Diltiazem HCl (Diltiazem Iv*) 15 mg IV SLOW PU ONCE PRN PRN Reason: if sustained rapid afib Famotidine (Pepcid Tab*) 20 mg PO BID [facility] Last Admin: 12/10/18 20:10 Dose: 20 mg Furosemide (Lasix Tab*) 40 mg PO DAILY [facility] Last Admin: 12/10/18 08:28 Dose: Not Given Gabapentin (Neurontin Cap(*)) 100 mg PO BEDTIME PRN PRN Reason: PAIN Last Admin: 12/09/18 01:03 Dose: 100 mg Guaifenesin (Mucinex*) 600 mg PO BID [facility] Last Admin: 12/10/18 20:10 Dose: 600 mg Levalbuterol HCl (Xopenex 1.25 Mg/0.5 Ml Neb.Leona*) 1.25 mg INH Q4H [facility] Last Admin: 12/10/18 19:40 Dose: 1.25 mg Levalbuterol HCl (Xopenex 1.25 Mg/0.5 Ml Neb.Leona*) 1.25 mg INH [id number] AWAKE PRN PRN Reason: SOB/WHEEZING Magnesium Oxide (Magox 400 Tab*) 400 mg PO BID [facility] Last Admin: 12/10/18 20:10 Dose: 400 mg Melatonin (Melatonin) 3 mg PO BEDTIME PRN PRN Reason: SLEEP Last Admin: 12/09/18 23:35 Dose: 3 mg Metoprolol Succinate (Toprol Xl Tab*) 100 mg PO BID [facility] Last Admin: 12/10/18 20:10 Dose: 100 mg Mometasone Furoate/Formoterol Fumar (Dulera 100/5 Mdi*) 2 puff INH BID [facility] Last Admin: 12/10/18 19:23 Dose: 2 puff Morphine Sulfate (Morphine 4 Mg/Ml Vial (1 Ml)) 1 mg IV Q3H PRN PRN Reason: SEVERE PAIN Last Admin: 12/10/18 20:10 Dose: 1 mg Polyvinyl Alcohol (Polyvinyl Alcohol 1.4% Opth*) 1 drop BOTH EYES Q4H PRN PRN Reason: SCLERAL EDEMA Last Admin: 12/04/18 11:15 Dose: 1 drop Prednisone (Deltasone Tab*) 50 mg PO DAILY [facility] Last Admin: 12/10/18 07:36 Dose: 50 mg Rivaroxaban (Xarelto(*)) 20 mg PO DAILY [facility] Last Admin: 12/10/18 07:36 Dose: 20 mg Sotalol HCl (Betapace Tab*) 80 mg PO BID [facility] Last Admin: 12/10/18 20:10 Dose: 80 mg Tiotropium [place] (Spiriva Cap.Inh*) 1 cap INH DAILY [facility] Last Admin: 12/10/18 07:27 Dose: 1 cap Vital Signs - 8 hr 12/10/18 12/10/18 12/10/18 14:25 14:54 15:16 Temperature 97.0 F Pulse Rate 60 59 Respiratory 18 22 20 Rate Blood Pressure 127/72 (mmHg) O2 Sat by Pulse 98 95 Oximetry 12/10/18 12/10/18 12/10/18 15:57 19:42 20:10 Temperature 97 F Pulse Rate 59 63 Respiratory 20 18 20 Rate Blood Pressure 127/72 (mmHg) O2 Sat by Pulse 95 100 Oximetry 12/10/18 21:34 Temperature Pulse Rate Respiratory 20 Rate Blood Pressure (mmHg) O2 Sat by Pulse Oximetry Oxygen Devices in Use Now: None, Nasal Cannula - between RA and 2L Appearance: well appearing, pleasant, speaking in full sentences Ears/Nose/Mouth/Throat: Clear Oropharnyx Respiratory: - - impaired air movement, prolonged expiratory wheeze Cardiovascular: RRR Extremities: - - edema improving 1+ to lower legs Neurological: Alert and Oriented x 3 Result Diagrams: 12/09/18 05:34 12/09/18 05:34 Microbiology and Other Data: Microbiology 12/02/18 22:05 Aerobic Blood Culture - Preliminary Blood Venous No Growth Day 3 12/02/18 22:03 Aerobic Blood Culture - Preliminary Blood Venous No Growth Day 3 12/03/18 06:07 Legionella Urinary Antigen - Final Urine Negative Legionella Antigen Streptococcus pneumoniae Ag Screen - Final Negative S. pneumo Antigen 12/02/18 20:55 Influenza Types A,B Antigen - Final Nasal Specimen received for Influenza A/B Molecular testing Assess/Plan/Problems-Billing Assessment: 57M with COPD on home O2 prn, afib s/p failed ablations, SSS s/p PPM, UC s/p bowel resection, HTN, YAMEL on CPAP, presenting immediately after discharge from outside hospital for persistent COPD exacerbation, required intubation in ER and now s/p ext 12/04. Had course of cefepime, now back on oral steroids. - Patient Problems (1) Acute and chronic respiratory failure with hypoxia Comment: - cont albuterol nebs prn - switched IV steroids (12/02 - 12/08) to pred 50mg PO on 12/09, cont taper - s/p cefepime (12/02 - 12/08) - cont nightly BiPAP (previously on CPAP for YAMEL) - cont Dulera, Spiriva standing - cont morphine prn dyspnea - appreciate Dr. Joan aponte - SaO2 goal 88-92% (2) Atrial fibrillation Comment: also with SSS s/p PPM -Continue Metoprolol, Sotalol, Diltiazem, and Rivaroxaban (3) Anemia, macrocytic Comment: TSH/B12/folate normal. Status and Disposition: Inpatient medicine floors, likely DC soon. Will need a prolonged steroid taper.
[2018-12-11] MEDS: Melatonin 3 MG TAB PO PRN (00:34)
[2018-12-11] MEDS: Morphine 4 MG/ML VIAL (1 ml) 4 MG/ML VIAL IV PRN ×2 (00:35→08:45)
[2018-12-11] MEDS: Levalbuterol 1.25MG/0.5ML NEB INH SCH ×3 (02:57→11:21)
[2018-12-11] MEDS: Tiotropium CAP.INH* CAP.INH/18 MCG (USE ORDER SET !) INH SCH (07:47)
[2018-12-11] MEDS: Mometasone/Formoter 100/5 MDI INH SCH (07:47)
[2018-12-11 08:01] VITALS: BP 130/76
[2018-12-11] MEDS: Famotidine TAB* 20 MG PO SCH (08:43)
[2018-12-11] MEDS: guaiFENesin ER TAB 600 MG PO SCH (08:44)
[2018-12-11] MEDS: Rivaroxaban TAB(*) 20 MG TAB PO SCH (08:44)
[2018-12-11] MEDS: Metoprolol Succinate XL TAB* 100 MG PO SCH (08:44)
[2018-12-11] MEDS: Diltiazem CD CAP* 240 MG PO SCH (08:44)
[2018-12-11] MEDS: Furosemide TAB* 40 MG PO SCH (08:44)
[2018-12-11] MEDS: Magnesium Oxide TAB* 400 MG PO SCH (08:44)
[2018-12-11] MEDS ORDERED: predniSONE TAB* 20 MG PO SCH (09:00)
[2018-12-11] MEDS: Sotalol TAB* 80 MG PO SCH (09:17)
--- NOTE | 2018-12-11 14:51 | DS ---
CC: Dr. Franco; Dr. Abel; Dr. Allyn Heredia * DISCHARGE SUMMARY: DATE OF ADMISSION: 12/01/2018 DATE OF DISCHARGE: 12/11/2018 PRIMARY CARE PHYSICIAN: Dr. Allyn Heredia. DISPOSITION: Home. CONDITION: Improved. PRIMARY DIAGNOSES: 1. Chronic obstructive pulmonary disease exacerbation. 2. Healthcare-associated pneumonia. SECONDARY DIAGNOSES: 1. Atrial fibrillation. 2. Hypertension. 3. Sick sinus syndrome, status post pacemaker. CONSULTS: Pulmonology, Dr. Franco; Cardiology, Dr. Abel. HISTORY OF PRESENT ILLNESS: 57-year-old man with history of severe COPD on home O2 prn; atrial fibrillation , on anticoagulation; sick sinus syndrome s/p pacemaker; hypertension; YAMEL, on CPAP, who presented to the emergency room with progressive and severe shortness of breath. Most history obtained from ER staff given the patient already intubated during admission interview. It appears that the patient had just been discharged from [facility] several hours prior to presentation; he was diagnosed there with a COPD exacerbation. Upon arrival to the emergency room at [facility], he became unresponsive and is intubated. HOSPITAL COURSE: In the ER, the patient was started on vancomycin, given IV fluids, IV steroids, cefepime, and ketamine with magnesium and DuoNeb treatments. He was admitted to the ICU, given intubation for acute on chronic hypercapnic and hypoxic respiratory failure from COPD exacerbation and suspected right lower lobe pneumonia. He was able to be extubated 2 days later and was transferred to the floor. His full course was notable for increased oxygen requirements, which required continued IV steroids before significant improvement was seen. He completed entire 7-day course of cefepime. Of note during his hospitalization, he had intermittent chest pain that he thought was related to his atrial fibrillation and going into a rapid ventricular rate. On the night of 12/08/18, this sudden onset of chest pain had been accompanied by diaphoresis. Although previously during admission his troponins and EKG were unremarkable for ACS, that night he did appear to have ST elevations in V1 and V2 with reciprocal depressions; however, his troponins had remained within normal limits. He was evaluated by Cardiology, who thought it was likely that his chest pain was caused by the rapid rhythm, increasing oxygen demand in the myocardium, and the patient continued to auto convert back to normal sinus and then his chest pain would spontaneously resolved without intervention. He was continued on anticoagulation and his home rate and rhythm control agents; metoprolol, sotalol, and diltiazem. He was eventually able to be transitioned off IV steroids onto oral steroids and by day of discharge, the patient was noted to be making laps around the inpatient medicine floor. He reported shortness of breath at his baseline, which did not limit his exercise tolerance while walking. He denied any further episodes of chest pain. Otherwise, 10- point review of systems is negative. PHYSICAL EXAMINATION: afebrile, heart rate in the low 60s, respiratory rate 16, oxygen saturation 94% on 3 L. General: Well-appearing man, pleasant, conversant, speaking in full sentences. Heart: Regular rate and rhythm. No murmurs, gallops, or rubs. Lungs: Decreased air entry bilaterally, wheezing improved. Abdomen: Soft, nontender, nondistended. Lower extremities with 1+ pitting edema to lower one third of shins. DISCHARGE PLAN: The patient is to follow up with his primary care physician as well as his cassandra consultant. He was given a visiting nurse service referral for home care and he will take a prolonged steroid taper. He was instructed to avoid known triggers for exacerbation, such as prolonged exposure to cold air, and to return to the hospital if he experiences worsening of dyspnea, or new fevers, cough, or chest pain. HOME MEDICATIONS: 1. Symbicort 2 inhalations b.i.d. 2. Levalbuterol 1 to 2 puffs q.6 hours as needed for shortness of breath. 3. Tiotropium 1 inhalation daily. 4. Prednisone 40 mg daily, decreased by 10 mg every 3 days. 5. Diltiazem 240 mg daily. 6. Metoprolol succinate 100 mg twice a day. 7. Sotalol 80 mg twice a day. 8. Rivaroxaban 20 mg daily. 9. Torsemide 20 mg daily as needed for lower extremity edema. 10. Magnesium oxide 400 mg p.o. b.i.d. 11. Gabapentin 1 to 3 tabs at bedtime as needed for sleep. TIME SPENT: Approximately 60 minutes was spent on discharge of this patient, over half of which was spent at bedside with interview, exam, education and with care coordination. [id number]/[facility] #: [id number] [facility]
== END 2018-12-11 12:21 | disposition home health service (06) | DRG 133 ==
LOC: ED 20:20 → ICU 22:33 → MED 12-05 11:12 → ICU 12-08 22:29 → MEDTELE 12-09 11:17
PROVIDERS: ADMIT Internal Medicine; ATTEND Internal Medicine Critical Care Medicine
PROC: 0BH17EZ Insertion of Endotracheal Airway into Trachea, Via Natural or Artificial Opening (ICD-10-PCS; principal; 2018-12-02)
PROC: 5A1945Z Respiratory Ventilation, 24-96 Consecutive Hours (ICD-10-PCS; 2018-12-02)
PROC: 0BP1XDZ Removal of Intraluminal Device from Trachea, External Approach (ICD-10-PCS; 2018-12-04)
DX: J96.21 Acute and chronic respiratory failure with hypoxia (principal); J18.1 Lobar pneumonia, unspecified organism; J44.1 Chronic obstructive pulmonary disease with (acute) exacerbation; N17.9 Acute kidney failure, unspecified; J44.0 Chronic obstructive pulmonary disease with (acute) lower respiratory infection; J96.22 Acute and chronic respiratory failure with hypercapnia; Z87.891 Personal history of nicotine dependence; I50.9 Heart failure, unspecified; I11.0 Hypertensive heart disease with heart failure; D53.9 Nutritional anemia, unspecified; G47.33 Obstructive sleep apnea (adult) (pediatric); I48.0 Paroxysmal atrial fibrillation; J20.8 Acute bronchitis due to other specified organisms; I48.2 Chronic atrial fibrillation; E87.70 Fluid overload, unspecified; Z93.3 Colostomy status; Z88.1 Allergy status to other antibiotic agents; Z82.49 Family history of ischemic heart disease and other diseases of the circulatory system; Z86.19 Personal history of other infectious and parasitic diseases; Z72.89 Other problems related to lifestyle; Z79.52 Long term (current) use of systemic steroids; Z79.01 Long term (current) use of anticoagulants
CPT/HCPCS: 36415; 36600; 71045; 80048; 80053; 80076; 80202; 82550; 82553; 82607; 82746; 82803; 83605; 83721; 83735; 83874; 83880; 83921; 84100; 84145; 84484; 85025; 85027; 85610; 85730; 86140; 86850; 86900; 86901; 87040; 87899; 93005; 94002; 94003; 94640; 94660; 99285; A9270-GY; J0330; J0692; J1160; J1644; J1650; J1940; J2250; J2270; J2704; J2920; J2930; J3010; J3370; J3490; J7512

== ENCOUNTER 2018-12-30 09:41 | Inpatient (IN) | payer OTHER ==
[2018-12-30] MEDS ORDERED: Pantoprazole IV* 40 MG IV ONE (09:45)
[2018-12-30] MEDS ORDERED: Pantoprazole* 80 mg IN NS 80 MG/250 ML BAG IVPB ONE (09:45)
[2018-12-30] MEDS ORDERED: Octreotide Acetate* 50 MCG in NS 0.9% 50 ML* 50 ML IVPB ONE (09:45)
--- NOTE | 2018-12-30 09:50 | ED ---
GI/ HPI - HPI Summary HPI Summary: 58 year old M brought in by [place] ambulance to [facility] complains of rectal bleed since 2-3 days ago. Symptoms aggravated by nothing. Symptoms alleviated by nothing. Patient denies vomiting and emesis. Patient is unable to provide much of a history because he is minimally responsive. EMS found patient unconscious on the floor but were eventually able to get patient up. EMS did not find colostomy bag on scene even though patient is supposed to have one. EMS stated that patient's apartment was covered in bloody feces. EMS found patient next to a bottle of liquor. EMS reports that patient's BP in field was 80s systolic. Per EMS, patient has hx ETOH, COPD, CHF. Patient's neighbors left a note on patient's door. Per neighbor's note, patient has not been feeling well for a couple of days. Per note, patient was told he was dying. Neighbors brought him alcohol and cigarettes after which patient reported feeling better. Per note, patient fell down stairs 2 days ago trying to get to his doctor, hitting his back, buttocks, and arms. Per note, patient stated to his friends that hes trying to get the morphine out of his system. Per nurse, takes morphine every 2- 3 hours. Per note, patient's doctor is Dr. Allyn Heredia who can be reached at [phone]. - History of Current Complaint Stated Complaint: RECTAL BLEEDING PER EMS Hx Obtained From: EMS, Other: - nurse Onset/Duration: Started Days Ago - 2-3, Still Present Timing: Constant Associated Signs and Symptoms: Positive: Negative - vomiting, emesis Aggravating Factor(s): Nothing Alleviating Factor(s): Nothing - Additional Pertinent History Primary Care Physician: [id number] - Allergy/Home Medications Allergies/Adverse Reactions: Allergies Allergy/AdvReac Type Severity Reaction Status Date / Time ciprofloxacin Allergy Itching Verified 12/30/18 11:30 Home Medications: Home Medications Gabapentin CAP(*) [Neurontin 100 mg CAP(*)] 100 - 300 mg PO BEDTIME PRN [History Confirmed 12/30/18] Levalbuterol HFA INHALER* [Xopenex Hfa Inhaler*] 1 - 2 puff INH Q6HR PRN [History Confirmed 12/30/18] Roxanol 100mg/5ml 0.25 ml PO Q3HR PRN 12/30/18 [History Confirmed 12/30/18] PMH/Surg Hx/FS Hx/Imm Hx Previously Healthy: No Endocrine/Hematology History: Reports: Hx Anticoagulant Therapy Denies: Hx Diabetes, Hx Systemic Lupus Erythematosus, Hx Thyroid Disease Cardiovascular History: Reports: Hx Atrial Fibrillation - no anticoagulants used currently, Hx Auto Implanted Cardiovert Defib, Hx Congestive Heart Failure , Hx Hypertension, Hx Syncope Denies: Hx Deep Vein Thrombosis, Hx Myocardial Infarction, Hx Pacemaker/ICD Respiratory History: Reports: Hx Asthma, Hx Chronic Obstructive Pulmonary Disease (COPD), Hx Pneumonia, Hx Sleep Apnea Denies: Hx Lung Cancer, Hx Pulmonary Embolism GI History: Reports: Hx Gastrointestinal Bleed, Hx Obstructive Bowel, Hx Ileostomy - colostomy 2012, Other GI Disorders - colostomy, ulcerative colitis Denies: Hx Gall Bladder Disease, Hx Ulcer, Hx Urosepsis History: Denies: Hx Kidney Stones, Hx Renal Disease Musculoskeletal History: Reports: Hx Orthopedic Injury - surgeries in both knees Denies: Hx Arthritis, Hx Rheumatoid Arthritis, Hx Osteoporosis Sensory History: Reports: Hx Contacts or Glasses Denies: Hx Hearing Aid, Other Sensory Impairments Opthamlomology History: Reports: Hx Contacts or Glasses Denies: Other Sensory Impairments Neurological History: Denies: Hx Dementia, Hx Migraine, Hx Seizures, Hx Transient Ischemic Attacks (TIA) Psychiatric History: Denies: Hx Anxiety, Hx Depression, Hx Schizophrenia, Hx Bipolar Disorder - Cancer History Cancer Type, Location and Year: None reported Hx Chemotherapy: No - Surgical History Surgery Procedure, Year, and Place: COLECTOMY FOR ULCERATIVE COLITIS AT [facility] - has ostomy now 12/2012; bilat knees for cartilage. Tonsils. pacemaker left chest Hx Anesthesia Reactions: No - Immunization History Date of Influenza Vaccine: 06/07/16 Infectious Disease History: Reports: Hx Hepatitis - hep c Denies: Hx Clostridium Difficile, Hx Human Immunodeficiency Virus (HIV), Hx of Known/Suspected MRSA, Hx Shingles, Hx Tuberculosis, Hx Known/Suspected VRE, Hx Known/Suspected VRSA, History Other Infectious Disease - Family History Known Family History: Positive: Hypertension, Respiratory Disease - Social History Alcohol Use: Rare Alcohol Amount: was daily Hx Substance Use: Yes Substance Use Comment - Amount & Last Used: BEATA Hx Tobacco Use: Yes Smoking Status (MU): Former Smoker Type: Cigarettes Amount Used/How Often: 1/2 ppd Length of Time of Smoking/Using Tobacco: 40 years Have You Smoked in the Last Year: Yes Review of Systems Negative: Fever, Chills Negative: Erythema Negative: Sore Throat Negative: Chest Pain Negative: Shortness Of Breath, Cough Gastrointestinal: Negative - emesis Positive: Other - rectal bleed. Negative: Abdominal Pain, Vomiting, Nausea Negative: dysuria, hematuria Negative: Myalgia, Edema Negative: Rash Neurological: Negative - Dizziness All Other Systems Reviewed And Are Negative: Yes Physical Exam - Summary Physical Exam Summary: Constitutional: Well-developed, Well-nourished, Alert. (-) Distressed. Patient is covered in dried blood. His feet are covered in bloody stools. Skin: Patient has bruising on left anterior chest wall and on medial aspect of left great toe HENT: Patient has ecchymosis on frontal scalp Eyes: Conjunctiva normal Neck: Musculoskeletal ROM normal neck. (-) JVD, (-) Stridor, (-) Tracheal deviation Cardio: Rhythm regular, rate normal, Heart sounds normal; Intact distal pulses; The pedal pulses are 2+ and symmetric. Radial pulses are 2+ and symmetric. (-) Murmur Pulmonary/Chest wall: Patient has crackles bilaterally. He is tachypneic and has wet cough Abd: Soft, (-) tenderness, (-) Distension, (-) Guarding, (-) Rebound Musculoskeletal: (-) Edema Lymph: (-) Cervical adenopathy Neuro: Patient responds to loud verbal stimulus and is unable to provide history Psych: Mood and affect Normal Triage Information Reviewed: Yes Vital Signs Reviewed: Yes Procedures - Central Line Left Femoral Central Line Lumen: triple - consent was emergent, the patient was already intubated at the time of need for additional vascular access. Peripheral access is very poor. Patient required multiple medicated drips. Maximum barrier precautions were utilized, the triple-lumen catheter was placed using Seldinger technique under direct ultrasound guidance. A compressible, non- pulsatile vessel was cannulated. Central Line Procedure: betadine prep, sterile drapes applied, sterile dressing applied Central Line Position: femoral (L) Anesthesia: none Complications: none Central Line Post Position: sutured, good blood return - Intubation Time of Intubation: 10:02 Diagnostics - Laboratory Result Diagrams: 12/30/18 09:57 12/30/18 11:03 Lab Statement: Any lab studies that have been ordered have been reviewed, and results considered in the medical decision making process. - Radiology CXR Radiology Interpretation Completed By: Radiologist Summary of Radiographic Findings: EMPHYSEMA. LINES AND TUBES ABOVE. ED physician has reviewed this report. - CT Thoracic spine CT Interpretation Completed By: Radiologist Summary of CT Findings: 1. MILD DEGENERATIVE DISC DISEASE. 2. EMPHYSEMA. 3. NO ACUTE OSSEOUS INJURY TO THE THORACIC SPINE. ED physician has reviewed this report. Maxillofacial CT Interpretation Completed By: Radiologist Summary of CT Findings: NO ACUTE FACIAL FRACTURE. MILD SINUS MUCOSAL INFLAMMATORY DISEASE, WITHOUT AIR-FLUID LEVEL TO SUGGEST ACUTE SINUSITIS, WITH ATELECTASIS OF THE RIGHT MAXILLARY SINUS SUGGESTIVE OF CHRONIC SINUSITIS. ED physician has reviewed this report. Lumbar spine CT Interpretation Completed By: Radiologist Summary of CT Findings: 1. . DEGENERATIVE DISC DISEASE. 2. THERE IS A RIGHT- SIDED DISC PROTRUSION AT L2-L3 WITH MILD NARROWING OF THE CENTRAL CANAL. 3. NO ACUTE OSSEOUS INJURY TO THE LUMBAR SPINE. ED physician has reviewed this report. Chest/Abd/Pel CT Interpretation Completed By: Radiologist Summary of CT Findings: 1. SMALL RIGHT MIDDLE LOBE INFILTRATE. 2. 5 MM RIGHT MIDDLE LOBE PULMONARY NODULE, NEW. RECOMMEND A FOLLOW-UP NONCONTRAST CT OF THE CHEST IN 6 MONTHS TIME. 3. MODERATE TO SEVERE EMPHYSEMATOUS CHANGE. 4. NO EVIDENCE FOR ACUTE INTRA-ABDOMINAL ABNORMALITY. 5. HEPATIC STEATOSIS. 6. STATUS POST COLECTOMY. ED physician has reviewed this report. Cervical spine CT Interpretation Completed By: Radiologist Summary of CT Findings: DEGENERATIVE DISC DISEASE AND OSTEOARTHRITIS. NO ACUTE OSSEOUS INJURY TO THE CERVICAL SPINE. ED physician has reviewed this report. Brain CT Interpretation Completed By: Radiologist Summary of CT Findings: NO ACUTE INTRACRANIAL PATHOLOGY. ED physician has reviewed this report. - EKG 0955 Summary of EKG Findings: Non STEMI. TWI ST dpression in V3-V6 GIGU Course/Dx - Course Course Of Treatment: 58 year old M brought in by [facility] ambulance to [facility] complains of rectal bleed since 2-3 days ago. Patient is unable to provide much of a history because he is minimally responsive. Patient has hx ETOH. Patient was intubated for airway protection, also in the setting of large volume resuscitation with his known CHF. He presented hypotensive with his pants completely soaked a large amounts of rectal bleeding, also blood smeared on his lower abdomen as well. His ostomy did not appear to be bleeding. The bag and then removed from the ostomy. I reevaluated the patient multiple times, his blood pressure hovered in the 80s and 90s systolic, he received sedation with IV Versed to maintain the ventilator. Acute renal failure was present, with a creatinine of 6.7, also potassium 7.2. The parts clerk and I agreed that he was likely volume depleted, and we expected with with fluid resuscitation that his hyperkalemia would resolve. Push dose treatment was initiated for hyperkalemia. At the time of ICU admission, multiple images in the setting of trauma are pending. Dr. Correa agrees to follow these up. Arterial blood gas reveals acidosis, likely combination of that respiratory and metabolic. Of note , the partial pressure of oxygen reveals excellent oxygenation, pulse oximeter not accurate during the ED visit. Central line was placed. In ED course, patient received Duoneb, Kcentra, Protonix. CXR-EMPHYSEMA. LINES AND TUBES ABOVE. EKG was negative for acute changes. Thoracic spine CT showed 1. MILD DEGENERATIVE DISC DISEASE. 2. EMPHYSEMA. 3. NO ACUTE OSSEOUS INJURY TO THE THORACIC SPINE. Maxillofacial CT showed NO ACUTE FACIAL FRACTURE. MILD SINUS MUCOSAL INFLAMMATORY DISEASE, WITHOUT AIR-FLUID LEVEL TO SUGGEST ACUTE SINUSITIS , WITH ATELECTASIS OF THE RIGHT MAXILLARY SINUS SUGGESTIVE OF CHRONIC SINUSITIS. Lumbar spine CT showed 1. . DEGENERATIVE DISC DISEASE. 2. THERE IS A RIGHT-SIDED DISC PROTRUSION AT L2-L3 WITH MILD NARROWING OF THE CENTRAL CANAL. 3. NO ACUTE OSSEOUS INJURY TO THE LUMBAR SPINE. Chest/Abdomen/Pelvis CT showed 1. SMALL RIGHT MIDDLE LOBE INFILTRATE. 2. 5 MM RIGHT MIDDLE LOBE PULMONARY NODULE, NEW. RECOMMEND A FOLLOW-UP NONCONTRAST CT OF THE CHEST IN 6 MONTHS TIME. 3. MODERATE TO SEVERE EMPHYSEMATOUS CHANGE. 4. NO EVIDENCE FOR ACUTE INTRA-ABDOMINAL ABNORMALITY. 5. HEPATIC STEATOSIS. 6. STATUS POST COLECTOMY. Cervical spine CT showed DEGENERATIVE DISC DISEASE AND OSTEOARTHRITIS. NO ACUTE OSSEOUS INJURY TO THE CERVICAL SPINE. Brain CT showed NO ACUTE INTRACRANIAL PATHOLOGY. Labs were remarkable for potassium 7.1, troponin 0.10, ABG pH 7.18, lactic acid 6.5. Toxicology remarkable for opiates. Patient was given blood transfusions. Mass transfusion protocol initiated at 1057. Spoke with Dr. Correa, parts clerk, at 1107, who agreed to admit patient to ICU. Spoke with MAXIMINO Epps, at 1111, who ___. The patient will be admitted to Dr. Correa. Clinically, there are rales present. I suspect he aspirated in the field. Broad-spectrum antibiotics were initiated in the emergency department. - Diagnoses Provider Diagnoses: Rectal bleeding, Acute blood loss anemia, Hemorrhagic shock - Physician Notifications Discussed Care Of Patient With: Dylan Correa Time Discussed With Above Provider: 11:07 Instructed by Provider To: Other - Dr. Correa, ICU, agrees to admit patient - Critical Care Time Critical Care Time: 75-104 min - 90 min Discharge - Sign-Out/Discharge Documenting (check all that apply): Patient Departure - Admit - Discharge Plan Condition: Critical Disposition: ADMITTED TO [facility] - Billing Disposition and Condition Condition: CRITICAL Disposition: Admitted to [facility] - Attestation Statements Document Initiated by Lyibe: Yes Documenting Scribe: Yolanda Estrada Provider For Whom Ej is Documenting (Include Credential): Addison Ring MD Scribe Attestation: I, Yolanda Estrada, scribed for Addison Ring MD on 12/30/18 at 1543. Scribe Documentation Reviewed: Yes Provider Attestation: The documentation as recorded by the scribeYolanda accurately reflects the service I personally performed and the decisions made by me, Addison Ring MD Status of Scribe Document: Viewed
[2018-12-30] MEDS ORDERED: NS 0.9% 100 ML* 100 ML ONE (09:56)
[2018-12-30] MEDS ORDERED: Etomidate* 2 MG/ML 20 ML VIAL (40 MG) ONE (10:00)
[2018-12-30] MEDS ORDERED: Succinylcholine* 20 MG/ML 10 ML VIAL ONE (10:00)
[2018-12-30] MEDS ORDERED: Octreotide Acetate* 500 MCG in NS 0.9% 100 ML* 100 ML IVPB SCH (10:00)
[2018-12-30] MEDS ORDERED: Midazolam IV for DRIP* 100 MG in NS 0.9% 100 ML* 80 ML IV SCH (10:00)
[2018-12-30] MEDS ORDERED: Albuterol/Ipratropium NEB.SOL* Albuterol 2.5 MG/Ipratropium 0.5 MG 3 ML INH ONE (10:12)
[2018-12-30 10:45] LABS: Hematocrit 40 % (36-46); Hemoglobin 12.2 g/dL (14.0-18.0); Mean Corpuscular HGB Conc 31 g/dL (31-36); Mean Corpuscular Hemoglobin 32 pg (27-31); Mean Corpuscular Volume 103 fL (80-94); Platelet Count 119 10^3/uL (150-450); Red Blood Count 3.88 10^6 /uL (4.18-5.48); Red Cell Distribution Width 18 % (10.5-15); White Blood Count 13.5 10^3/uL (3.5-10.8)
[2018-12-30 10:49] LABS: Activated Partial Thrombo Time 26.3 seconds (26.0-36.3); INR 1.46 (0.77-1.02)
[2018-12-30] MEDS ORDERED: Iodixanol* (CONTRAST) 320 MG/ML 100 ML SDV IV ONE (10:49)
[2018-12-30 10:51] LABS: Urine Appearance Cloudy; Urine Bilirubin Negative (Negative); Urine Blood Negative (Negative); Urine Color Amber; Urine Glucose Negative (Negative); Urine Ketones Negative (Negative); Urine Nitrite Negative (Negative); Urine Protein Negative (Negative); Urine Specific Gravity 1.018 (1.010-1.030); Urine Urobilinogen Negative (Negative)
[2018-12-30] MEDS ORDERED: fentaNYL* 50 MCG/ML 2 ML VIAL (100 MCG VIAL) ONE (10:54)
[2018-12-30] MEDS ORDERED: ED Piperacillin/Tazobac 3.375 3.375 GM/100 ML PREMIX.SET IVPB ONE (11:07)
[2018-12-30 11:12] LABS: Fibrinogen 338.6 mg/dL (110.8-404.3); Immature Granulocytes 5 % (0-9); Lymphocytes % 4 %; Metamyelocytes % 1 % (0-2); Monocytes % 18 %; Neutrophil % 72 %; Nucleated Red Blood Cells/100 4 (0-0); Polychromasia 2+
[2018-12-30 11:13] LABS: AST 505 U/L (13-39); Albumin 3.3 g/dL (3.2-5.2); Albumin/Globulin Ratio 1.5 (1-3); Alkaline Phosphatase 123 U/L (34-104); BUN/Creatinine Ratio 11.8 (8-20); Blood Urea Nitrogen 79 mg/dL (6-24); CO2 Carbon Dioxide 22 mmol/L (22-32); Calcium 8.6 mg/dL (8.6-10.3); Chloride 105 mmol/L (101-111); EGFR African American 10.3 (>60); EGFR Non-African American 8.5 (>60); Globulin 2.2 g/dL (2-4); Glucose 134 mg/dL (70-100); Sodium 143 mmol/L (135-145); Total Protein 5.5 g/dL (6.4-8.9)
[2018-12-30 11:15] LABS: ABS Neutrophils 10.4 10^3/ul (1.5-7.7)
[2018-12-30 11:16] LABS: ABS Basophils 0.1 10^3/ul (0-0.2); Anion Gap 16 mmol/L (2-11); Potassium 7.1 mmol/L (3.5-5.0)
[2018-12-30] MEDS ORDERED: Piperacillin/Tazobac (*) 3.375 GM BAG ONE (11:25)
[2018-12-30 11:27] LABS: Barbiturates Urine Screen None Detected (None Detect); Benzodiazepine Urine Screen None Detected (None Detect); Urine Cannabinoids Screen None Detected (None Detect)
[2018-12-30 11:32] LABS: ALT 542 U/L (7-52)
[2018-12-30] MEDS ORDERED: Phytonadione IV (Adult)* 5 MG in NS 0.9% 50 ML* 50 ML IV STA (11:38)
--- NOTE | 2018-12-30 12:03 | HP ---
H&P (Free Text) History and Physical: History and Physical -- Critical Care Limitations in history/physical: intubated/sedated; history from chart and ER HPI: 57y M w/pmhx of COPD with mild chronic hypercapnea/chronic hypoxia on 2L, Chronic Afib with ablations/difficult to control on Xarelto, poor compliance, h/ o SSS s/p PPM, UC s/p bowel resection with Right ileostomy+, HTN, YAMEL on CPAP; noted to have recurrent admission to [facility] and outside hospitals for COPD exaccerbation, recently at [facility] oct 2018 and early November 2018 for similar episodes as well as admission 11/2018 for COPD exacerbation immediately after a [facility] admission. Comes from Home, found unresponsive at home, EMS stated friends and neighbors say he has been out of it possibly trying to get over morphine past few days. He does drink daily. Patient with very poor mental status when they arrived. Question of recent falls also. EMS noted feces and blood over the house and patient stated he has been have bloody bowel movements past 2-3 days. In ER he was poorly responsive, intubated for airway protection. BP low, lowest 70s. HR 70-08s, afebrile. Noted bright red blood per rectum, not ileostomy. Central line placed, started on Massive transfusion protocol, given Kcentra for factor administration due to Xarelto intake. Noted to have K 7.1, ISABEL Cr >6, metabolic acidosis. Jara placed with urine+. He is currently sedated, intubated , pink color of skin, no pallor noted. Abd soft, nondistended, Right ileostomy+ . On 50% fio2, sats 90s, HR 80s, BP 80-90s. Currently running octreotide infusion, PPI infusion, versed dec to 5mg/hr. No pressors. Received 4L NS bolus. ROS: Unable to obtain due to intubated/sedated state; poor responsiveness on arrival to ER PMHx: COPD with mild chronic hypercapnea/chronic hypoxia on 2L, Chronic Afib with ablations/difficult to control, poor compliance, h/o SSS s/p PPM, UC s/p bowel resection with Right ileostomy+, HTN, YAMEL on CPAP PSHx: colostomy in past Family History: HTN, respiratory problems Social History: Alcohol-heavy before but occassional now, Smoking-former smoker , Drug use-none Allergies: Allergies Allergy/AdvReac Type Severity Reaction Status Date / Time ciprofloxacin Allergy Itching Verified 12/30/18 11:30 Home Medications: Umeclidinium [place] [Incruse Ellipta] 1 inh INH DAILY 07/20/18 [History Confirmed 12/30/18] Magnesium Oxide TAB* [MagOx 400 TAB*] 400 mg PO BID 11/03/18 [History Confirmed 12/30/18] Budesonide/Formote 80/4.5(NF) [Symbicort 80/4.5 (NF)] 2 inh INH BID #2 puff [Rx Confirmed 12/30/18] Diltiazem CD CAP* [Cardizem CD CAP*] 240 mg PO DAILY #30 cap.cd 12/11/18 [Rx Confirmed 12/30/18] Metoprolol Succinate XL TAB* [Toprol XL TAB*] 100 mg PO BID #60 tab.xl 12/11/18 [Rx Confirmed 12/30/18] Rivaroxaban TAB(*) [Xarelto 20 mg] 20 mg PO DAILY #30 tab 12/11/18 [Rx Confirmed 12/30/18] Sotalol TAB* [Betapace 80 MG TAB*] 80 mg PO BID #30 tab 12/11/18 [Rx Confirmed 12/30/18] Tiotropium CAP.INH* [Spiriva CAP.INH*] 1 cap INH DAILY #2 cap.inh 12/11/18 [Rx Confirmed 12/30/18] Torsemide TAB* [Demadex 20 MG*] 20 mg PO DAILY PRN #30 tab 12/11/18 [Rx Confirmed 12/30/18] Gabapentin CAP(*) [Neurontin 100 mg CAP(*)] 100 - 300 mg PO BEDTIME PRN [History Confirmed 12/30/18] Levalbuterol HFA INHALER* [Xopenex Hfa Inhaler*] 1 - 2 puff INH Q6HR PRN [History Confirmed 12/30/18] Roxanol 100mg/5ml 0.25 ml PO Q3HR PRN 12/30/18 [History Confirmed 12/30/18] Tele: NSR Vitals: Vital Signs Temp 95.4 F 12/30/18 11:45 Pulse 68 04/11/19 11:45 Resp 16 12/30/18 10:35 BP 88/60 12/30/18 11:45 Pulse Ox 83 12/30/18 11:45 Intake & Output 12/29/18 12/30/18 12/30/18 18:59 06:59 18:59 Intake Total 50 Balance 50 Weight 65.771 kg Intake: IV Fluids 50 O2/Vent: AC 16/450/+5/50% Infusions: PPI, octreotide, versed 5mg/hr Current Medications: Albuterol/Ipratropium (Duoneb (Albuterol 2.5 Mg/Ipratropium 0.5 Mg)) 1 neb INH Q4H PRN PRN Reason: SOB/WHEEZING Pantoprazole Sodium (Protonix Iv Bag*) 80 mg in 250 mls @ 25 mls/hr IVPB ED ONCE ONE Stop: 12/30/18 19:44 Last Admin: 12/30/18 11:11 Dose: 25 mls/hr Octreotide Acetate 500 mcg/ (Sodium Chloride) 101 mls @ 10.1 mls/hr IVPB Q10H JUSTIN Last Admin: 12/30/18 11:25 Dose: 10.1 mls/hr Midazolam HCl 100 mg/ Sodium (Chloride) 100 mls @ 0 mls/hr IV Q24H JUSTIN; Protocol Last Admin: 12/30/18 10:15 Dose: 10 mls/hr Thiamine HCl 100 mg/ Folic Acid 1 mg/ Multivitamins 10 ml / Sodium Chloride 1, 011.2 mls @ 60 mls/hr IV ONCE ONE Stop: 12/31/18 05:21 Last Admin: 12/30/18 13:41 Dose: 60 mls/hr Norepinephrine Bitartrate (Levophed 16 Mcg/Ml Premix Bag*) 4,000 mcg in 250 mls @ 18.75 mls/hr IV .INITIAL RATE JUSTIN; Protocol Last Admin: 12/30/18 13:45 Dose: 18.75 mls/hr Cefepime HCl 0.25 gm/ Sodium (Chloride) 50 mls @ 100 mls/hr IVPB Q24H JUSTIN Levalbuterol HCl (Xopenex 1.25 Mg/0.5 Ml Neb.Leona*) 1.25 mg INH Q4H PRN PRN Reason: SOB/WHEEZING Pharmacy Consult (Vancomycin Per Pharmacy*) 1 note FOLLOW UP . PRN PRN Reason: PER PROTOCOL Pharmacy Consult (Vancomycin Random Level*) 1 note FOLLOW UP 0600 ONE Stop: 12/31/18 06:01 Physical Exam: Constitutional: intubated, sedated, no distress, no diaphoresis Head: normocephalic, atraumatic Eyes: no pallor, no icterus ENT: Moist mucous membranes Neck: soft, supple, no jvd CVS: normal rate, regular, no murmur Resp: bilateral air entry, no rhales, no wheeze, no rhonchi, no acc muscle use Abdomen/GI: soft, nontender, nondistended, BS+; Right lower ileostomy+ Ext/Msk: warm, pulses+, 3+edema Skin: intact, warm; mottling++ LE; Right ankle small wound/greyish, without drainage Neuro: sedated/intubated, pupils reactive bilaterally; limited neuro exam Labs: Laboratory Results - last 24 hr 12/30/18 12/30/18 12/30/18 09:57 09:57 09:57 WBC 13.5 H RBC 3.88 L Hgb 12.2 L Hct 40 MCV 103 H MCH 32 H MCHC 31 RDW 18 H Plt Count 119 L MPV 9.0 Neut % (Auto) Not Reportable Lymph % (Auto) Not Reportable Centre % (Auto) Not Reportable Eos % (Auto) Not Reportable Baso % (Auto) Not Reportable Absolute Neuts (auto) Not Reportable Absolute Lymphs (auto) Not Reportable Absolute Monos (auto) Not Reportable Absolute Eos (auto) Not Reportable Absolute Basos (auto) Not Reportable Absolute Nucleated RBC Not Reportable Immature Gran % 5 Neutrophils % 72 Band Neutrophils % 4 Lymphocytes % 4 Monocytes % 18 Basophils % 1 Metamyelocytes % 1 Nucleated RBC % Not Reportable Abs Neuts (Manual) 10.4 H Abs Lymphs (Manual) 0.5 L Abs Monocytes (Manual) 2.4 H Abs Basophils (Manual) 0.1 Nucleated RBCs/100 WBC 4 H Normal RBC Morphology Not Reportable Polychromasia 2+ Anisocytosis 1+ Macrocytosis 1+ INR (Anticoag Therapy) 1.46 H APTT 26.3 Fibrinogen 338.6 Patient Temperature ABG pH ABG pH (Temp Correct) ABG pCO2 ABG pCO2 (Temp Corrct ABG pO2 ABG pO2 (Temp Correct ABG HCO3 ABG O2 Saturation ABG Base Excess Respiration Rate O2 Delivery Device Ventilator Type Vent Mode FiO2 Inspiratory Time PEEP Pressure Support Pressure Control EPAP IPAP BiPAP Sodium 143 Potassium 7.1 H* Chloride 105 Carbon Dioxide 22 Anion Gap 16 H BUN 79 H Creatinine 6.71 H Est GFR ( Amer) 10.3 Est GFR (Non-Af Amer) 8.5 BUN/Creatinine Ratio 11.8 Glucose 134 H Lactic Acid Calcium 8.6 Total Bilirubin 2.60 H AST 505 H ALT 542 H Alkaline Phosphatase 123 H Troponin I 0.10 H* Total Protein 5.5 L Albumin 3.3 Globulin 2.2 Albumin/Globulin Ratio 1.5 Urine Color Urine Appearance Urine pH Ur Specific [place] Urine Protein Urine Ketones Urine Blood Urine Nitrate Urine Bilirubin Urine Urobilinogen Ur Leukocyte Esterase Urine Glucose Urine Opiates Screen Ur Barbiturates Screen Ur Phencyclidine Scrn Ur Amphetamines Screen U Benzodiazepines Scrn Urine Cocaine Screen U Cannabinoids Screen Serum Alcohol Blood Type Antibody Screen Crossmatch 12/30/18 12/30/18 12/30/18 09:57 09:57 10:26 WBC RBC Hgb Hct MCV MCH MCHC RDW Plt Count MPV Neut % (Auto) Lymph % (Auto) Centre % (Auto) Eos % (Auto) Baso % (Auto) Absolute Neuts (auto) Absolute Lymphs (auto) Absolute Monos (auto) Absolute Eos (auto) Absolute Basos (auto) Absolute Nucleated RBC Immature Gran % Neutrophils % Band Neutrophils % Lymphocytes % Monocytes % Basophils % Metamyelocytes % Nucleated RBC % Abs Neuts (Manual) Abs Lymphs (Manual) Abs Monocytes (Manual) Abs Basophils (Manual) Nucleated RBCs/100 WBC Normal RBC Morphology Polychromasia Anisocytosis Macrocytosis INR (Anticoag Therapy) APTT Fibrinogen Patient Temperature Not Reportable ABG pH 7.18 L* ABG pH (Temp Correct) Not Reportable ABG pCO2 49 H ABG pCO2 (Temp Corrct Not Reportable ABG pO2 191 H ABG pO2 (Temp Correct Not Reportable ABG HCO3 17.1 L ABG O2 Saturation 100.0 H ABG Base Excess -10.1 L Respiration Rate 16 O2 Delivery Device vent Ventilator Type 450 Vent Mode cmv FiO2 50 Inspiratory Time Not Reportable PEEP 5 Pressure Support Not Reportable Pressure Control Not Reportable EPAP Not Reportable IPAP Not Reportable BiPAP Not Reportable Sodium Potassium Chloride Carbon Dioxide Anion Gap BUN Creatinine Est GFR ( Amer) Est GFR (Non-Af Amer) BUN/Creatinine Ratio Glucose Lactic Acid 6.5 H* Calcium Total Bilirubin AST ALT Alkaline Phosphatase Troponin I Total Protein Albumin Globulin Albumin/Globulin Ratio Urine Color Urine Appearance Urine pH Ur Specific [place] Urine Protein Urine Ketones Urine Blood Urine Nitrate Urine Bilirubin Urine Urobilinogen Ur Leukocyte Esterase Urine Glucose Urine Opiates Screen Ur Barbiturates Screen Ur Phencyclidine Scrn Ur Amphetamines Screen U Benzodiazepines Scrn Urine Cocaine Screen U Cannabinoids Screen Serum Alcohol Blood Type O Positive Antibody Screen Negative Crossmatch See Detail 12/30/18 12/30/18 12/30/18 10:32 10:32 11:03 WBC RBC Hgb Hct MCV MCH MCHC RDW Plt Count MPV Neut % (Auto) Lymph % (Auto) Centre % (Auto) Eos % (Auto) Baso % (Auto) Absolute Neuts (auto) Absolute Lymphs (auto) Absolute Monos (auto) Absolute Eos (auto) Absolute Basos (auto) Absolute Nucleated RBC Immature Gran % Neutrophils % Band Neutrophils % Lymphocytes % Monocytes % Basophils % Metamyelocytes % Nucleated RBC % Abs Neuts (Manual) Abs Lymphs (Manual) Abs Monocytes (Manual) Abs Basophils (Manual) Nucleated RBCs/100 WBC Normal RBC Morphology Polychromasia Anisocytosis Macrocytosis INR (Anticoag Therapy) APTT Fibrinogen Patient Temperature ABG pH ABG pH (Temp Correct) ABG pCO2 ABG pCO2 (Temp Corrct ABG pO2 ABG pO2 (Temp Correct ABG HCO3 ABG O2 Saturation ABG Base Excess Respiration Rate O2 Delivery Device Ventilator Type Vent Mode FiO2 Inspiratory Time PEEP Pressure Support Pressure Control EPAP IPAP BiPAP Sodium Potassium 6.7 H* Chloride Carbon Dioxide Anion Gap BUN Creatinine Est GFR ( Amer) Est GFR (Non-Af Amer) BUN/Creatinine Ratio Glucose Lactic Acid Calcium Total Bilirubin AST ALT Alkaline Phosphatase Troponin I Total Protein Albumin Globulin Albumin/Globulin Ratio Urine Color Caitlyn Urine Appearance Cloudy Urine pH 5.0 Ur Specific [place] 1.018 Urine Protein Negative Urine Ketones Negative Urine Blood Negative Urine Nitrate Negative Urine Bilirubin Negative Urine Urobilinogen Negative Ur Leukocyte Esterase Negative Urine Glucose Negative Urine Opiates Screen Presumptive positive A Ur Barbiturates Screen None detected Ur Phencyclidine Scrn None detected Ur Amphetamines Screen None detected U Benzodiazepines Scrn None detected Urine Cocaine Screen None detected U Cannabinoids Screen None detected Serum Alcohol < 10 Blood Type Antibody Screen Crossmatch Imaging: cxr 12/30 - ett above dino; hyperinflated lungs; no focal process or congestion noted Assessment: 57y M w/pmhx of COPD with mild chronic hypercapnea/chronic hypoxia on 2L, Chronic Afib with ablations/difficult to control on Xarelto, poor compliance, h/o SSS s/p PPM, UC s/p bowel resection with Right ileostomy+, HTN, YAMEL on CPAP; noted to have recurrent admission to [facility] and outside hospitals for COPD exaccerbation, recently at [facility] oct 2018 and early November 2018 for similar episodes as well as admission 11/2018 for COPD exacerbation immediately after a [facility] admission. Comes from Home, found unresponsive at home, EMS stated friends and neighbors say he has been out of it possibly trying to get over morphine past few days. He does drink daily. Patient with very poor mental status when they arrived. Question of recent falls also. EMS noted feces and blood over the house and patient stated he has been have bloody bowel movements past 2-3 days. Intubated in ER, hypotensive, started on MTP for suspected GI hemorrhage; also noted to have ISABEL/hyperkalemia. -Acute Respiratory Failure, unspecified -Encephalopathy, suspect metabolic -Chronic Hypercapnea -Lower GI bleed suspected -ISABEL -Hyperkalemia -Volume overload -Hypotension/shock, suspect hypovolemic -elevated LFTs, suspect shock liver -mild coagulopathy Afib, on Xarelto h/o Right ileostomy / to UC COPD, on 2 L home O2 Chronic pain Plan: Neuro- -poor responsiveness on arrival -intubated for airway protection -currently on versed infusion; wean down to minimal req or change to low dose propofol -intact pupillary response on exam -CT brain 12/30 - no acute pathology noted -Delirium prec CVS- -SHock, unclear etiology; low dose levophed -mild wbc elevation, no clear source of infection, coyle CT without focal process noted -LA elevated, trend; sepsis? poor clearance? -sepsis protocol started; given cefepime/vanco x1; blood cx; s/p IVF 4-5 L and PRBC given -IV abx -evidence of peripheral edema; now anuric it appears; may need volume removal -trend H/H; no signs of large ongoing GI bleed noted -Afib; currently in NSR; hold BB/CCB/sotalol -Hold further Xarelto till GIB confirmed/controlled and H/h stable; likely to have accumulated effect based on ISABEL which triggered this bleeding -last TTE 10/2018 with normal LV function, no overt valvular abnormality -Maintain MAP>65, SBP>90 Resp- -Intubated on AC 50% -Last ABG with metabolic acidosis, not completely compensated -Repeat ABG now -CXR/CT chest without focal acute process/congestion -cont albuterol PRN neb q4h prn -minimal secretions being suctioned -Wean Fio2 to keep sat>92% -Bronchodilators PRN, Aspiration prec, Pulmonary Toilet ID- afebrile. wbc 13. -CXR clear 12/30 -CT abd/pelvis/Chest 12/30 -blood and urine cultures done; urinalysis without WBC/bacteria -unclear if underlying sepsis causing this mild shock state and ATN; empiric sepsis tx, start cefepime and vanco -check vanco level tomorrow GI- -NPO -OGT to suction -Banana Bag with thiamine/folate/mvi x1 bag -PPI infusion -Octreotide infusion for GI hemorrhage -suspect low grade bleed; no overt signs noted; GI consult evaluated also, likely conservative management and observation now; trend h/h, cont above PPI/ octreotide -Right ileostomy intact; bag in place; does not look necrotic/ischemics -reversal of AC, transfusing PRBC -trend LFTS, evidence of shock liver+ -Discussed with GI Renal- -ISABEL; suspect ATN; unclear if underlying septic etiology; though he has signs of peripheral overload, hg so far stable. unclear if he took any nsaids but he is on chronic narcotics. No evidence of obstruction on CT abd/pelvis. -bleeding may be from accumulation/toxicity of xarelto he was on -Hyperkalemia; given cocktail; will hold kayexelate till bleeding ruled out -repeat BMP and LA pending now -remains Anuric -pending new labs; discussed with renal, may likely require transfer for acute HD for hyperkalemia, overload, Anuric ATN -strict I/O, replete to keep K>4, Mg>2 -jara as indicated Heme- -hg 12; s/p MTP with 5 units PRBC -pending repeat CBC -hold furhter xarelto -s/p Kcentra for factor replacement -check INR tomorrow; last 1.4,mild coaguloapthy -s/p vit K 5mg IV x1 -DVT proph with SCDs Endo- Maintain BG<200, insulin protocol as needed Musculsk- pressure ulcer prophylaxis. Bedrest. Wounds- none Nutrition- NPO DVT prophylaxis: SCDs GI prophylaxis: PPI Central Line: Left femoral 12/30 Arterial Line: left femoral 12/30 Jara Cathetor: yes 12/30 Disposition: Admit to ICU; Patient requires Critical Care/ICU for acute respiratory failure req intubation, hypotension, GI bleed, ISABEL Re-eval, may require transfer to higher level of care requiring acute emergent HD Expected LOS>2 midnights Patient Clinical Status: unstable, critical Code Status: FULL CODE ; will need to address status/GOC once awake Total Critical Care time is 60 minutes, excluding procedures/teaching Dylan Correa MD [employer] Measurer [employer] Cutter (Electronically Signed)
[2018-12-30] MEDS ORDERED: Calcium CHLORIDE 10% SYRINGE* 1 GM/10 ML IV ONE (12:16)
[2018-12-30] MEDS ORDERED: Insulin REGULAR(*) 1 UNITS UNIT IV PUSH ONE (12:16)
[2018-12-30] MEDS ORDERED: Dextrose 50% Syringe 50 ML* 25 GM/50 ML SYRINGE IV PUSH ONE (12:17)
[2018-12-30] MEDS ORDERED: fentaNYL* 50 MCG/ML 2 ML VIAL (100 MCG VIAL) IV SLOW PU ONE (12:26)
[2018-12-30] MEDS ORDERED: HYDROmorphone INJ1* 1 MG/ML SYRINGE ONE (12:29)
[2018-12-30] MEDS ORDERED: Thiamine IV* 100 MG, Folic Acid IV* 1 MG, Multiple Vitamin IV ADULT* 10 ML in NS 0.9% 1... IV ONE (12:30)
[2018-12-30 12:40] LABS: Alcohol < 10 mg/dL (<10); Potassium 6.7 mmol/L (3.5-5.0)
[2018-12-30] MEDS ORDERED: Norepinephrine 16MCG/ML IVPRE* 4,000 MCG/250 ML BAG IV ONE (12:46)
[2018-12-30] MEDS ORDERED: Cefepime 2 GM in Dextrose(*) 2 GM/50 ML BAG IV ONE (13:31)
[2018-12-30] MEDS ORDERED: Vancomycin(*) 1,000 MG in NS 0.9% 250 ML* 250 ML IVPB ONE (13:31)
[2018-12-30] MEDS ORDERED: Cefepime(*) 1 GM in NS 0.9% 50 ML* 50 ML IVPB ONE (13:40)
[2018-12-30] MEDS ORDERED: Cefepime 1 GM in Dextrose(*) 1 GM/50 ML BAG IV ONE (14:00)
[2018-12-30] MEDS ORDERED: Norepinephrine 16MCG/ML IVPRE* 4,000 MCG/250 ML BAG IV SCH (14:00)
[2018-12-30] MEDS ORDERED: Vancomycin(*) 0 MG in NS 0.9% 250 ML* 250 ML IVPB SCH (14:00)
[2018-12-30] MEDS ORDERED: Albuterol/Ipratropium NEB.SOL* Albuterol 2.5 MG/Ipratropium 0.5 MG 3 ML INH PRN (14:32)
[2018-12-30] MEDS ORDERED: Levalbuterol 1.25MG/0.5ML NEB INH PRN (14:33)
[2018-12-30] MEDS ORDERED: Vancomycin per Pharmacy* NOTE FOLLOW UP PRN (14:37)
--- NOTE | 2018-12-30 15:43 | PN ---
Sepsis Event Evaluation Date of Evaluation: 12/30/18 Time of Evaluation: 15:00 Current Stage of Sepsis: Septic Shock Vital Signs - Last 12 Hours: Vital Signs - 12 hr Temp Pulse Resp BP Pulse Ox 12/30/18 14:15 96.1 F 68 83/59 100 12/30/18 14:01 96.1 F 66 83/57 100 12/30/18 14:00 16 12/30/18 13:45 96.1 F 65 93/69 100 12/30/18 13:30 96.1 F 67 80/56 100 12/30/18 13:15 96.1 F 67 80/62 100 12/30/18 13:01 96.1 F 66 100 12/30/18 13:00 96.1 F 66 16 82/58 100 12/30/18 12:45 95.9 F 66 82/59 100 12/30/18 12:35 95.9 F 66 17 80/58 100 12/30/18 12:33 95.9 F 66 80/58 100 12/30/18 12:32 17 12/30/18 12:31 95.9 F 66 16 82/59 100 12/30/18 12:30 95.9 F 67 100 12/30/18 12:27 20 12/30/18 12:25 95.7 F 12/30/18 11:45 95.4 F 68 88/60 83 12/30/18 11:40 95.4 F 69 88/66 85 12/30/18 11:35 95.4 F 69 89/61 84 12/30/18 11:30 95.4 F 69 91/64 86 12/30/18 11:25 95.4 F 69 88/65 88 12/30/18 11:20 95.4 F 69 93/63 87 12/30/18 11:15 95.5 F 70 96/69 91 12/30/18 11:10 95.5 F 73 91/65 88 12/30/18 11:05 95.7 F 141 87/57 81 12/30/18 11:00 95.9 F 147 93/52 77 12/30/18 10:57 96.1 F 141 77 12/30/18 10:55 96.1 F 146 75/58 76 12/30/18 10:50 96.3 F 143 91/58 81 12/30/18 10:35 77 16 12/30/18 09:47 96.5 F 92 24 107/78 0 Lactic Acid: 12/30/18 09:57 Lactic Acid 6.5 H* - Cardiopulmonary Exam Capillary Refill: Immediate Respiratory: Symmetrical Chest Expansion and Respiratory Effort, Clear to Auscultation, Clear to Percussion Cardiovascular: NL Sounds; No Murmurs; No JVD, - - Edema++ - Skin Exam Skin Exam: Normal Turgor, [place], Mottling - [place] Coma Scale Best Eye Response: 1 - None Best Motor Response: 1 - None Best Verbal Response: 1 - Intubated Coma Scale Total: 3.0 Assess/Plan/Problems-Billing Assessment:
[2018-12-30] MEDS ORDERED: Albuterol 2.5 MG/3 ML NEB.SOL* (0.083%) INH PRN (15:45)
[2018-12-30 16:04] LABS: Hematocrit 47 % (36-46); Hemoglobin 15.3 g/dL (14.0-18.0); Mean Corpuscular HGB Conc 32 g/dL (31-36); Mean Corpuscular Hemoglobin 31 pg (27-31); Mean Corpuscular Volume 97 fL (80-94); Red Cell Distribution Width 17 % (10.5-15); White Blood Count 12.6 10^3/uL (3.5-10.8)
[2018-12-30 16:30] LABS: BUN/Creatinine Ratio 12.7 (8-20); Calcium 7.9 mg/dL (8.6-10.3); EGFR African American 12.5 (>60); EGFR Non-African American 10.4 (>60)
[2018-12-30 16:32] LABS: Potassium 6.4 mmol/L (3.5-5.0)
[2018-12-30 16:35] LABS: ABS Basophils 0.1 10^3/ul (0-0.2); ABS Eosinophils 0 10^3/ul (0-0.6); ABS Lymphocytes 0.6 10^3/ul (1.0-4.8); ABS Neutrophils 10.9 10^3/ul (1.5-7.7); ABS Nucleated RBC 0.4 10^3/ul; Eosinophil % 0.1 %; Lymphocyte % 4.8 %; Mean Platelet Volume 8.1 fL (7.4-10.4); Nucleated Red Blood Cells % 3.1; Platelet Count 52 10^3/uL (150-450)
[2018-12-30 16:39] LABS: Polychromasia 1+
[2018-12-30 16:46] LABS: Urine Creatinine Concentration 294.73 mg/dL; Urine Sodium Concentration < 18 mmol/L
[2018-12-30] MEDS ORDERED: Sodium Bicarbonate 8.4%* 50 ML SYRINGE IV ONE ×2 (18:21→18:22)
--- NOTE | 2018-12-30 18:26 | PN ---
Progress Note - Progress Note Date of Service: 12/30/18 Note: Arterial Line Procedure Note Indication: frequent arterial blood gases , invasive hemodynamic monitoring Diagnosis: Acute respiratory failure, GI bleed, ISABEL, Shock Performed by: Dylan Correa MD Consent: Emergent [place] Protocol: Time-out was performed and the correct patient and site were verified - Prior labs/history was reviewed prior to procedure - Full sterile precautions with chlorhexidine/full drapes/gowns/gloves utilized - attempted right radial x2 but small and unable to pass wire; then switched over to new site - Left Femoral artery visualized with US - Vessel accessed with return of pulsatile blood. One attempt was made to access vessel. A cathetor was threaded over wire into vessel. Good arterial waveform was observed on monitor. - Arterial Catheter was sutured to site; dressing applied to site. EBL <5 cc No immediate complications noted, patient tolerated procedure well. Dylan Correa MD Fire Eater (Electronically Signed)
[2018-12-30 18:34] LABS: Urine Chloride Concentration < 22 mmol/L; Urine Potassium Concentration 99.2 mmol/L
--- NOTE | 2018-12-30 19:14 | DS ---
Discharge Summary Patient Name: Ozzie Yen Date of Admission: 12/30/2018 Date of Discharge: 12/30/2018 Attending: Dr Dylan Correa (permanent waver) Consultants: Dr Hanks (daycare director) Admitting Diagnoses: 1) ISABEL 2) Hyperkalemia 3) GI hemorrhage 4) Acute respiratory failure, unspecified 5) Chronic hypercapneic respiratory failure 6) Shock, unspecified 7) Volume overload 8) Encephalopathy, acute 9) Elevated LFTs Discharge Diagnoses: 1) ISABEL 2) Hyperkalemia 3) GI hemorrhage 4) Acute respiratory failure, unspecified 5) Chronic hypercapneic respiratory failure 6) Shock, unspecified 7) Volume overload 8) Encephalopathy, acute 9) Elevated LFTs HPI/Hospital Course: 57y M w/pmhx of COPD with mild chronic hypercapnea/chronic hypoxia on 2L, Chronic Afib with ablations/difficult to control on Xarelto, poor compliance, h/ o SSS s/p PPM, UC s/p bowel resection with Right ileostomy+, HTN, YAMEL on CPAP; noted to have recurrent admission to [facility] and outside hospitals for COPD exaccerbation, recently at [facility] oct 2018 and early November 2018 for similar episodes as well as admission 11/2018 for COPD exacerbation immediately after a [facility] admission. Comes from Home, found unresponsive at home, EMS stated friends and neighbors say he has been out of it possibly trying to get over morphine past few days. He does drink daily. Patient with very poor mental status when they arrived. Question of recent falls also. EMS noted feces and blood over the house and patient stated he has been have bloody bowel movements past 2-3 days. In ER he was poorly responsive, intubated for airway protection. BP low, lowest 70s. HR 70-08s, afebrile. Noted bright red blood per rectum, not ileostomy. Central line placed, started on Massive transfusion protocol, given Kcentra for factor administration due to Xarelto intake. Noted to have K 7.1, ISABEL Cr >6, metabolic acidosis. Yancey placed with urine+. He is currently sedated, intubated , pink color of skin, no pallor noted. Abd soft, nondistended, Right ileostomy+ . On 50% fio2, sats 90s, HR 80s, BP 80-90s. Currently running octreotide infusion, PPI infusion, versed dec to 5mg/hr. No pressors. Received 4L NS bolus. Repeat Chemistries after admin of insulin/d50 demonstrated a slight change in potassium but remains at 6.4 and 6.1. CLinically he is overloaded still. Has metabolic acidosis without AG on repeat chemistry. He also remains anuric. Hemoglobin level is 15 after 5 prbc for suspected GI hemorrhage and massive transfusion protocol, no further bleeding noted. Unclear if there is a septic component underlying but he was started on sepsis protocol and IV abx given. Suspicion for GI bleed was likely from accumulated/toxic effect of oral rivaroxaban in setting of ISABEL. Based on above clinical findings, nephrology recommended emergent HD for treatment of hyperkalemia, volume overload, removal of possible rivaroxaban and metabolic acidosis. Emergent HD is not available today at [facility] and so patient is to be transferred to [facility] in [facility], they were contacted and accepted the patient. He is pending transfer in the coming hours. He remains critical but stable for transport. Procedures/Imaging: see chart Laboratory/Data: see chart Discharge Medications: levophed, octreotide infusion, midazolam infusion, banana bag infusion; cefepime, vancomycin, protonix IV BID Diet: NPO Activity: bed rest Condition upon discharge: guarded, critical Disposition: transfer to [facility] to ICU under Dr Becerril Code Status: full code Recommendations: - Follow-up: - Total Discharge time 40 minutes Dylan Correa MD Wastewater Process Engineer (Electronically Signed)
[2018-12-30 19:40] VITALS: BP 89/70
[2018-12-30] MEDS ORDERED: Octreotide Acetate* 500 MCG in NS 0.9% 100 ML* 100 ML IVPB ONE (21:00)
--- NOTE | 2018-12-30 22:38 | CONS ---
NEPHROLOGY CONSULTATION: DATE OF CONSULT: 12/30/18 REASON FOR CONSULT: Acute kidney injury and hyperkalemia. HISTORY OF PRESENT ILLNESS: A 58-year-old male with a past medical history of COPD with chronic hypercapnic hypoxemic respiratory failure; on 2 L, chronic atrial fibrillation with history of ablations, history of sick sinus syndrome; status post pacemaker placement, ulcerative colitis; status post bowel resection with right ileostomy, hypertension, YAMEL; on CPAP with a recent admission to [facility] and outside hospital for COPD exacerbation, here with altered mental status. Patient was recently in [facility] in October 2018 and then early November 2018 for COPD exacerbation. Immediately after [facility] admission , came home, was noted to be unresponsive at home. EMS and friends and neighbors say he had been out of it, possibly trying to get over morphine over the past few days. He does drink every day. Patient was noted to have poor mental status when EMT arrived. They noted feces and blood in the house and the patient had described bloody bowel movements in 2 to 3 days. In the ER, he was poorly responsive, intubated for airway protection. Blood pressure was noted to be low and as low as 70s, heart rate 70 to 80, noted to have bright red blood per rectum, not in the ileostomy. Central line was placed in the ER and patient was given blood transfusion and Kcentra due to Xarelto intake. He was initially noted to have a potassium of 7.1, ISABEL with creatinine greater than 6, Yancey catheter was placed, and the patient was started on octreotide infusion, PPI infusion, Versed and transferred to ICU. Patient is currently on low-dose Levophed. Patient was given IV hydration and blood products. Repeat potassium was noted to be 6.7 and lactic acid was initially 6.5; later came down to 2.2. PAST MEDICAL HISTORY: 1. COPD. 2. Chronic hypercapnia. 3. Chronic atrial fibrillation. 4. Sick sinus syndrome, status post pacemaker. 5. Ulcerative colitis, status post bowel resection and right ileostomy. 6. Hypertension. 7. Obstructive sleep apnea, on CPAP. 8. Recurrent COPD exacerbations. PAST SURGICAL HISTORY: Colostomy in the past. HOME MEDICATIONS: 1. Umeclidinium. 2. Incruse Ellipta. 3. Magnesium oxide 400 mg p.o. b.i.d. 4. Budesonide/formoterol (Symbicort inhalation) b.i.d. 5. Cardizem 240 mg p.o. daily. 6. Metoprolol 100 mg p.o. b.i.d. 7. Xarelto 20 mg daily. 8. Sotalol 80 mg p.o. b.i.d. 9. Spiriva 1 cap inhalation daily. 10. Torsemide 20 mg p.o. daily p.r.n. 11. Gabapentin at bedtime. 12. Xopenex inhaler 1 to 2 puffs inhalation q.6 p.r.n. 13. Roxanol 0.25 mL p.o. q.3 hours p.r.n. FAMILY HISTORY: Hypertension, respiratory problem. SOCIAL HISTORY: Heavy alcohol use, but occasionally now. Smoking heavily before. No known recreational drug use. REVIEW OF SYSTEMS: Unable to obtain; patient is intubated and sedated. PHYSICAL EXAM: General: Patient is intubated, sedated. HEENT: NC/AT. Heart : S1, S2 present. Tachycardic at the time of exam. Respiratory: Patient noted to have minimal crackles at bases, decreased breath sounds bilaterally. Abdomen: Soft, nontender. No rebound. No guarding. Extremities: Noted to have 2+ edema bilaterally and some purpura. DIAGNOSTIC STUDIES/LAB DATA: Chest x-ray has been reviewed. Labs as described above. Sodium 143, potassium 7.1, chloride 105, CO2 of 22, BUN 79, creatinine 6.71. Later, patient's potassium was noted to be 6.7, bicarb noted to be 17 from 22 before, lactate came down to 2.2 from 6.5 with volume repletion. ASSESSMENT AND PLAN: A 58-year-old male with history of severe chronic obstructive pulmonary disease, atrial fibrillation, sick sinus syndrome, ulcerative colitis with ileostomy, obstructive sleep apnea, hypertension with no known kidney disease previously, here with hypotension and acute kidney injury, hyperkalemia. 1. Acute kidney injury, likely secondary to ischemic acute tubular necrosis in the setting of hypoperfusion. Patient's blood pressure was noted to be low when he came to the hospital. Patient also likely has a possible gastrointestinal bleed and was given blood products, and patient was noted to have bright red blood per rectum. Hemoglobin at this time noted to be stable. Patient is currently managed on pressors with Levophed. Recommend checking a CPK level on the patient to evaluate for rhabdomyolysis. Recommend checking urine electrolytes including urine sodium, creatinine, urea. Recommend checking a renal ultrasound to rule out obstruction. 2. Overall, patient's condition is critical and irrespective of the etiology of renal failure; which is most likely acute tubular necrosis, patient requires urgent dialysis. Unfortunately, dialysis is not available in the hospital today and discussed with ICU team and recommend transferring the patient to another facility to monitor closely. Indications for dialysis include metabolic acidosis, hyperkalemia, and volume overload. Patient is also anuric. 3. Shock. Septic workup in progress. Cardiogenic is also possible. Gastrointestinal bleed is also being worked up. Cultures are currently pending. Further management per the ICU team. 4. Recommend transferring the patient for urgent dialysis. [id number]/[facility]PS #: [id number] MTDD
--- NOTE | 2018-12-30 23:11 | CONS ---
CC: Dr. Allyn Heredia * CONSULTATION REPORT: DATE OF CONSULT: 12/30/18 PRIMARY CARE PHYSICIAN: Dr. Allyn Heredia. REASON FOR CONSULTATION: Rectal bleeding, shock. HISTORY OF PRESENT ILLNESS: A 58-year-old male with a past medical history of hypercapnic respiratory insufficiency, COPD, chronic AFib, sick sinus syndrome, ulcerative colitis status post colectomy with right ileostomy, obstructive sleep apnea, who was found unresponsive at home. He consumes alcohol on a daily basis. EMS noted he had a poor mental status when they arrived. He was found with feces and blood over the house. He told EMS that he had some bloody bowel movement over the last 2 to 3 days. In the emergency room, he was intubated for airway protection. He was found to have significant hypotension. There was some bright red blood in the rectum but not from the ileostomy and not with nausea or emesis. He was started on massive transfusion protocol. He was given Kcentra due to his Xarelto use. The patient last had an EGD and colonoscopy in October of [address] Cassia Ramos, it revealed some moderate gastroduodenitis and an unremarkable ileoscopy for 90 cm. PAST MEDICAL HISTORY: Ulcerative colitis status post colectomy with ileostomy, COPD with chronic hypercapnic respiratory insufficiency, chronic AFib, sick sinus syndrome with pacer, obstructive sleep apnea, and hypertension. PAST SURGICAL HISTORY: Aforementioned colectomy with ileostomy, EGD and colonoscopy in 2018, pacemaker placement. HOME MEDICATIONS: Include: 1. Ellipta. 2. Magnesium oxide. 3. Budesonide/formoterol inhaler. 4. Diltiazem. 5. Metoprolol. 6. Xarelto. 7. Sotalol. 8. Tiotropium. 9. Torsemide. 10. Gabapentin. 11. Levalbuterol. 12. Roxanol. ALLERGIES: Include CIPROFLOXACIN, which is itching. FAMILY HISTORY: No known family history of ulcerative colitis or colorectal cancer. SOCIAL HISTORY: Previous heavy alcohol use, unknown recent quantity but was noted to drink on a daily basis. Former smoker. REVIEW OF SYSTEMS: The remainder of the 14-point review of systems is grossly negative, but the HPI and ROS is limited by mental status and intubation sedation. History is supplemented from the chart of the emergency room and the catering truck operator. PHYSICAL EXAM: Vital Signs: Blood pressure 101/63, pulse is 69, respiratory rate is 26, 99% vented, temperature is 97.3. Temperature low on admission was 95.9. In general, intubated, nonresponsive. HEENT: Some scattered ecchymoses around his face. Normocephalic. Eyes: Conjunctivae are pink. Sclerae are anicteric. ENT: Some scant dry blood in the oropharynx. Neck: Supple. No JVD. Cardiovascular: Regular rate and rhythm. Respiratory: Diminished at the bases bilaterally. Abdomen: Soft, nontender, and nondistended. Bowel sounds positive. Right lower quadrant ileostomy with scant stool with a scant amount of blood. Extremities/musculoskeletal: Extensive 3+ edema bilaterally. Skin: Right ankle ulcer, superficial, bilateral hands with some mottling in the left upper extremity especially. Neuro: Sedated, intubated. Pupils reactive. External rectal exam: No palpable induration or fluctuance is noted. On NENA exam, return of some purulence on the first NENA exam and a scant amount of blood , however, there was no significant ongoing hematochezia. DIAGNOSTIC STUDIES/LAB DATA: WBC count 12.6, hemoglobin 15.3, platelet count is 52. INR 1.46. ABG, pH on presentation 7.18. Potassium 6.4, chloride 113, CO2 is 17, BUN is 72, creatinine is 5.7, lactic acid initially was 6.5, now 2.2 , calcium is 7.9. AST is 505, ALT is 542. Urine opiates were presumed positive. He had a CT of the chest, abdomen, and pelvis, showed a small right middle lobe infiltrate, 5 mm right middle lobe pulmonary nodule, moderate-to- severe emphysema, no evidence for acute intra-abdominal abnormality, hepatic steatosis, and post colectomy patient. ASSESSMENT AND PLAN: This is a 58-year-old male with shock, renal failure, and some scant rectal bleeding. 1. Rectal bleeding. The patient is status post colectomy with a right lower quadrant ileostomy. If hemoglobin appears stable at this point and his conjunctivae are pink, I am not certain that his shock is from GI bleeding. I do not see any evidence of profuse hematochezia at this time. There is only a scant amount of output from his ileostomy. In addition, the CT is nonrevealing. I would work up other sources of shock including sepsis. He has been appropriately given Kcentra for his Xarelto use. We will monitor H and H every 6 hours. Given the history of alcohol use, we would recommend Sandostatin drip, in addition a Protonix drip as well. If ongoing evidence of rectal bleeding, can consider endoscopic evaluation once hemodynamically stabilized and if clinical condition warrants. 2. Purulence on rectal exam. The CT was done without IV contrast. I discussed with the catering truck operator that when he is stable enough it would be worthwhile to get a CT with IV contrast or a MRI of the pelvic area. I do not see any clear fluctuance or area of abscess on external exam and on NENA exam, nothing is palpable; however, this will need to be followed up and may be a source if there is ongoing concern for sepsis. 3. Atrial fibrillation, on Xarelto, currently being held. 4. Severe emphysema, chronic obstructive pulmonary disease with hypercapnic failure. Intubated per primary service. 5. Renal failure. New workup per primary service. [id number] #: [id number] [facility] CENTERKali
[2018-12-31] MEDS ORDERED: Vancomycin Random Level* NOTE FOLLOW UP ONE (06:00)
[2018-12-31] MEDS ORDERED: Pantoprazole IV* 40 MG IV SCH (06:00)
[2018-12-31] MEDS ORDERED: Cefepime ADVAN(*) 2 GM ADDV.VIAL IVPB SCH (09:00)
[2018-12-31] MEDS ORDERED: NS 0.9% IVPB SCH (09:00)
[2018-12-31] MEDS ORDERED: CEFEPIME IVPB SCH (09:00)
== END 2018-12-30 20:36 | disposition short-term general hospital (02) | DRG 253 ==
LOC: ED 09:41 → ICU 12:04
PROVIDERS: ADMIT Internal Medicine Critical Care Medicine; ATTEND Internal Medicine Critical Care Medicine
PROC: 06HN33Z Insertion of Infusion Device into Left Femoral Vein, Percutaneous Approach (ICD-10-PCS; principal; 2018-12-30)
PROC: B54CZZA Ultrasonography of Left Lower Extremity Veins, Guidance (ICD-10-PCS; 2018-12-30)
PROC: 30283B1 Transfusion of Nonautologous 4-Factor Prothrombin Complex Concentrate into Vein, Percutaneous Approach (ICD-10-PCS; 2018-12-30)
PROC: 0T9B70Z Drainage of Bladder with Drainage Device, Via Natural or Artificial Opening (ICD-10-PCS; 2018-12-30)
PROC: 3E033XZ Introduction of Vasopressor into Peripheral Vein, Percutaneous Approach (ICD-10-PCS; 2018-12-30)
PROC: 0BH17EZ Insertion of Endotracheal Airway into Trachea, Via Natural or Artificial Opening (ICD-10-PCS; 2018-12-30)
PROC: 5A1935Z Respiratory Ventilation, Less than 24 Consecutive Hours (ICD-10-PCS; 2018-12-30)
PROC: 30233N1 Transfusion of Nonautologous Red Blood Cells into Peripheral Vein, Percutaneous Approach (ICD-10-PCS; 2018-12-30)
DX: K92.2 Gastrointestinal hemorrhage, unspecified (principal); R57.8 Other shock; J96.21 Acute and chronic respiratory failure with hypoxia; N17.9 Acute kidney failure, unspecified; J96.12 Chronic respiratory failure with hypercapnia; E87.2 Acidosis; D68.9 Coagulation defect, unspecified; I11.0 Hypertensive heart disease with heart failure; I48.2 Chronic atrial fibrillation; G47.33 Obstructive sleep apnea (adult) (pediatric); E87.5 Hyperkalemia; J43.9 Emphysema, unspecified; I50.9 Heart failure, unspecified; Z93.3 Colostomy status; Z95.0 Presence of cardiac pacemaker; Z86.19 Personal history of other infectious and parasitic diseases; Z88.1 Allergy status to other antibiotic agents; Z91.14 Patient's other noncompliance with medication regimen; Z82.49 Family history of ischemic heart disease and other diseases of the circulatory system; Z72.89 Other problems related to lifestyle; Z82.5 Family history of asthma and other chronic lower respiratory diseases; Z87.891 Personal history of nicotine dependence
CPT/HCPCS: 36415; 70450; 70486; 71045; 71250; 72125; 72128; 72131; 74176; 80048; 80053; 80307; 80320; 81003; 82436; 82570; 82803; 83605; 84132; 84133; 84145; 84300; 84484; 85025; 85060; 85384; 85610; 85730; 86850; 86900; 86901; 86922; 87040; 93005; 99285; A9270-GY; C9132; G0480; J0330; J0692; J1170; J2250; J2354; J2543; J3010; J3370; J3411; J3430; P9040